=== PATIENT | female | born 1960 | race Caucasian/White ===

== ENCOUNTER 2018-12-10 19:32 | Emergency (ER) | payer OTHER ==
[~2018-12-10] VITALS: Ht 157.5 cm; Wt 70.3 kg
[~2018-12-10 19:32] MED LIST: ATENOLOL25 MG PO; ESCITALOPRAM OX20 MG PO; LORATADINE10 MG PO; OMEPRAZOLE20 MG PO; PROAIR HFA8.5 GM INH; PROMETHAZINE HC25 M1 PO; SPIRIVA18 MCG INH
--- OUTSIDE RECORDS SUMMARY | 2018-12-10 19:34 | XMS ---
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 E.D. VISIT COUNT (12 MO.) [address] Lat[place] Moya [address] [place], [place] [address]Cecy TOTAL 6 NOTE: Visits indicate total known visits. ED/UCC VISIT TRACKING (12 MO.) 12/10/2018 19:33 BALA Williamson TYPE: Emergency COMPLAINT: - SOB 11/08/2018 14:17 [facility] Nita DAVIS TYPE: Emergency DIAGNOSES: - Difficulty Breathing - Chronic obstructive pulmonary disease with (acute) exacerbation 11/05/2018 18:14 BALA Williamson TYPE: Emergency COMPLAINT: - MEDICAL SCREEN DIAGNOSES: - Chronic obstructive pulmonary disease, unspecified - Allergy status to analgesic agent status - Allergy status to narcotic agent status - Major depressive disorder, single episode, unspecified - Other assisted (current) drug therapy - Allergy status to other drugs, medicaments and biological substances status - Allergy status to penicillin - Allergy status to sulfonamides status - Essential (primary) hypertension - Allergy status to other antibiotic agents status - Nicotine dependence, unspecified, uncomplicated 09/20/2018 16:10 [facility] [place] TYPE: Emergency DIAGNOSES: - Shortness of breath - Acute bronchospasm - Hypoxemia - Dependence on supplemental oxygen - Shortness of Breath - Chronic obstructive pulmonary disease with (acute) exacerbation 04/17/2018 11:37 [facility] Eirca DAVIS TYPE: Emergency DIAGNOSES: - Chronic obstructive pulmonary disease with (acute) exacerbation - sob - Tobacco use - Hypoxemia - Shortness of Breath [facility] DIAGNOSES: - Shortness of Breath - Chronic obstructive pulmonary disease with (acute) exacerbation - sob INPATIENT VISIT TRACKING (12 MO.) 09/20/2018 [facility]10 [facility] DIAGNOSES: - Shortness of breath - Dependence on supplemental oxygen - Chronic obstructive pulmonary disease with (acute) exacerbation - Acute bronchospasm - Tobacco use - Acute and chronic respiratory failure with hypoxia - Hypoxemia 04/17/2018 11:37 [facility] DIAGNOSES: - Chronic obstructive pulmonary disease with (acute) exacerbation - Acute and chronic respiratory failure with hypoxia - Chronic obstructive pulmonary disease, unspecified - Cerebrovascular disease, unspecified - Tobacco use - Anxiety disorder, unspecified - Hypoxemia [email or web address]
[2018-12-10] MEDS ORDERED: SYMBICORT 16010.2 GM INH (20:37)
[2018-12-10] MEDS ORDERED: ASPIR-LOW81 MG PO (20:38)
[2018-12-10] MEDS ORDERED: PREDNISONE20 MG PO (22:29)
[2018-12-10] MEDS ORDERED: ZITHROMAX500 MG PO (22:29)
== END 2018-12-10 23:00 | disposition home or self-care (01) ==
LOC: ED 19:32
DX: J44.0 Chronic obstructive pulmonary disease with (acute) lower respiratory infection (principal); J20.9 Acute bronchitis, unspecified; I10 Essential (primary) hypertension; F17.200 Nicotine dependence, unspecified, uncomplicated; Z88.0 Allergy status to penicillin; Z88.5 Allergy status to narcotic agent; Z88.2 Allergy status to sulfonamides; Z88.1 Allergy status to other antibiotic agents; Z88.6 Allergy status to analgesic agent; Z88.8 Allergy status to other drugs, medicaments and biological substances; Z79.82 Long term (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 of aspirin; Z79.899 Other long term (current) drug therapy
CPT/HCPCS: 71045; 80053; 83605; 85025; 94640; 96361; 96374; 99283-25; J2405; J7030; J7512

== ENCOUNTER 2018-12-12 23:34 | Emergency (ER) | payer OTHER ==
[~2018-12-12] VITALS: Ht 157.5 cm; Wt 65.8 kg
[~2018-12-12 23:34] MED LIST changes: +ASPIR-LOW81 MG PO; +PREDNISONE20 MG PO; +SYMBICORT 16010.2 GM INH; +ZITHROMAX500 MG PO
--- OUTSIDE RECORDS SUMMARY | 2018-12-12 23:38 | XMS ---
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 E.D. VISIT COUNT (12 MO.) 4 [place] [facility] [place] TOTAL 7 NOTE: Visits indicate total known visits. ED/UCC VISIT TRACKING (12 MO.) 12/12/2018 23:34 BALA Williamson TYPE: Emergency COMPLAINT: - SOB 12/10/2018 19:33 [place]A [place] TYPE: Emergency COMPLAINT: - SOB 11/08/2018 14:[address] Lat[place] DAVIS TYPE: Emergency DIAGNOSES: - Difficulty Breathing - Chronic obstructive pulmonary disease with (acute) exacerbation 11/05/2018 18:14 BALA Williamson TYPE: Emergency COMPLAINT: - MEDICAL SCREEN DIAGNOSES: - Chronic obstructive pulmonary disease, unspecified - Allergy status to analgesic agent status - Allergy status to narcotic agent status - Major depressive disorder, single episode, unspecified - Other mcfp (current) drug therapy - Allergy status to other drugs, medicaments and biological substances status - Allergy status to penicillin - Allergy status to sulfonamides status - Essential (primary) hypertension - Allergy status to other antibiotic agents status - Nicotine dependence, unspecified, uncomplicated 09/20/2018 16:10 [facility] [place] TYPE: Emergency DIAGNOSES: - Shortness of breath - Acute bronchospasm - Hypoxemia - Dependence on supplemental oxygen - Shortness of Breath - Chronic obstructive pulmonary disease with (acute) exacerbation 04/17/2018 [facility] DIAGNOSES: - Chronic obstructive pulmonary disease with (acute) exacerbation - sob - Tobacco use - Hypoxemia - Shortness of Breath 01/20/2018 16:19 [facility] TYPE: Emergency DIAGNOSES: - Shortness of Breath - Chronic obstructive pulmonary disease with (acute) exacerbation - sob INPATIENT VISIT TRACKING (12 MO.) 09/20/2018 16:10 [facility] DIAGNOSES: - Shortness of breath - Dependence on supplemental oxygen - Chronic obstructive pulmonary disease with (acute) exacerbation - Acute bronchospasm - Tobacco use - Acute and chronic respiratory failure with hypoxia - Hypoxemia 04/17/2018 11:37 [facility] [place] TYPE: Medical Surgical DIAGNOSES: - Chronic obstructive pulmonary disease with (acute) exacerbation - Acute and chronic respiratory failure with hypoxia - Chronic obstructive pulmonary disease, unspecified - Cerebrovascular disease, unspecified - Tobacco use - Anxiety disorder, unspecified - Hypoxemia [email or web address]
[2018-12-12] MEDS ORDERED: ZITHROMAX250 MG PO (23:41)
[2018-12-13] MEDS ORDERED: HYDROXYZINE HCL25 MG PO (01:27)
[2018-12-13] MEDS ORDERED: DIVALPROEX SOD500 M1 PO (11:18)
--- NOTE | 2018-12-13 14:49 | EKG ---
[facility] [address] [place], [place] [address] Signed Normal sinus rhythm Possible Left atrial enlargement Borderline ECG No previous ECGs available Confirmed by FRANSISCA PENA DO ([id number]) on 12/13/2018 2:49:19 PM Electronically Signed By: FRANSISCA PENA DO 12/13/18 1449 PATIENT NAME: TONYALEX L Electrocardiogram DATE OF : 60 PHYSICIAN: FRANSISCA PENA DO REPORT #: [id number] REPORT IS CONFIDENTIAL AND NOT TO BE RELEASED WITHOUT AUTHORIZATION
== END 2018-12-13 00:40 | disposition left against medical advice (07) ==
LOC: ED 23:34
DX: J44.1 Chronic obstructive pulmonary disease with (acute) exacerbation (principal); I10 Essential (primary) hypertension; F17.200 Nicotine dependence, unspecified, uncomplicated; F32.9 Major depressive disorder, single episode, unspecified; Z88.0 Allergy status to penicillin; Z88.1 Allergy status to other antibiotic agents; Z88.2 Allergy status to sulfonamides; Z88.5 Allergy status to narcotic agent; Z88.6 Allergy status to analgesic agent; Z88.8 Allergy status to other drugs, medicaments and biological substances; Z79.52 Long term (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 of systemic steroids; Z79.82 Long term (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 of aspirin; Z79.899 Other long term (current) drug therapy
CPT/HCPCS: 71046; 80053; 83735; 83880; 84484; 85025; 93005; 93010; 94640; 94644; 96374; 99285-25; J2930

== ENCOUNTER 2018-12-13 01:00 | Inpatient (IN) | payer OTHER ==
[~2018-12-13] VITALS: Ht 157.5 cm; Wt 68.8 kg
[~2018-12-13 01:00] MED LIST changes: +ZITHROMAX250 MG PO
--- OUTSIDE RECORDS SUMMARY | 2018-12-13 01:02 | XMS ---
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 E.D. VISIT COUNT (12 MO.) 4 [facility] 4 BALA Urias TOTAL 8 NOTE: Visits indicate total known visits. ED/UCC VISIT TRACKING (12 MO.) 12/13/2018 01:01 [place] TYPE: Emergency COMPLAINT: - SOB 12/12/2018 23:34 [place] TYPE: Emergency COMPLAINT: - SOB 12/10/2018 19:33 [place] TYPE: Emergency COMPLAINT: - SOB 11/08/2018 14:17 [facility] Erica DAVIS TYPE: Emergency DIAGNOSES: - Difficulty Breathing - Chronic obstructive pulmonary disease with (acute) exacerbation 11/05/2018 18:14 BALA Williamson TYPE: Emergency COMPLAINT: - MEDICAL SCREEN DIAGNOSES: - Chronic obstructive pulmonary disease, unspecified - Allergy status to analgesic agent status - Allergy status to narcotic agent status - Major depressive disorder, single episode, unspecified - Other long term care phlebotomist (current) drug therapy - Allergy status to other drugs, medicaments and biological substances status - Allergy status to penicillin - Allergy status to sulfonamides status - Essential (primary) hypertension - Allergy status to other antibiotic agents status - Nicotine dependence, unspecified, uncomplicated 09/20/2018 16:10 [facility] Erica DAVIS TYPE: Emergency DIAGNOSES: - Shortness of breath - Acute bronchospasm - Hypoxemia - Dependence on supplemental oxygen - Shortness of Breath - Chronic obstructive pulmonary disease with (acute) exacerbation 04/17/2018 11:37 [facility] [place] TYPE: Emergency DIAGNOSES: - Chronic obstructive pulmonary disease with (acute) exacerbation - sob - Tobacco use - Hypoxemia - Shortness of Breath 01/20/2018 16:19 [facility] [place] [facility]: [facility] DIAGNOSES: - Shortness of Breath - Chronic obstructive pulmonary disease with (acute) exacerbation - sob INPATIENT VISIT TRACKING (12 MO.) 09/20/2018 16:10 [facility] [place] TYPE: Medical Surgical DIAGNOSES: - Shortness of breath - Dependence on supplemental oxygen - Chronic obstructive pulmonary disease with (acute) exacerbation - Acute bronchospasm - Tobacco use - Acute and chronic respiratory failure with hypoxia - Hypoxemia 04/17/2018 11:37 [facility] Nita DAVIS TYPE: Medical Surgical DIAGNOSES: - Chronic obstructive pulmonary disease with (acute) exacerbation - Acute and chronic respiratory failure with hypoxia - Chronic obstructive pulmonary disease, unspecified - Cerebrovascular disease, unspecified - Tobacco use - Anxiety disorder, unspecified - Hypoxemia [email or web address]
[2018-12-13] MEDS ORDERED: HYDROXYZINE HCL25 MG PO (01:27)
--- NOTE | 2018-12-13 02:20 | NUR ---
PT ARRIVED TO THE FLOOR, MARCY MEYER RN IN ROOM, PT'S VSS, PT ON 2LNC, O2 SAT 90%, PT C/O SOB, PT PLACED IN HIGH FOWLERS, LS COARSE, EXP. WHEEZING NOTED, PT'S IV SL, FLUSHES WELL, PT AOX4, APPROPRIATE, BT ACTIVE, PULSES FELT, PT DENIES NUMBNESS OR TINGLING, ATTENDS IN PLACE PT DESCRIBES HAVING AN "OVERACTIVE BLADDER", PT DENIES ANY PAIN, PT ORIENTED TO ROOM, BELONGINGS AT BEDSIDE, CALL LIGHT WITHIN REACH. MARCY MEYER RN REMAINS IN ROOM.
--- NOTE | 2018-12-13 03:49 | NUR ---
PT RESTING IN BED, EYES CLOSED, BREATHS EVEN, UNLABORED, ON 2LNC, CPOX, O2 SAT 92%, CALL LIGHT WITHIN REACH. NO NEEDS AT THIS TIME.
--- NOTE | 2018-12-13 05:07 | NUR ---
CALL LIGHT ANSWERED, PT C/O "BRONCHOSPASM" THIS RN AND RT TO THE ROOM, PRN NEB TX GIVEN BY RT, PT RESTING IN BED, HIGH FOWLERS, ON 2LNC, O2 SAT 95%, PT PERSISTANTLY COUGHING, HR 100, PT DESCRIBED RELIEF POST NEB TX, REMAINS ON 2LNC, ASSESSMENT COMPLETE, LS COARSE/WHEEZES THROUGHOUT. NO FURTHER NEEDS AT THIS TIME, CALL LIGHT WITHIN REACH. FALL PRECAUTIONS IN PLACE. CPOX ON.
--- NOTE | 2018-12-13 05:09 | NUR ---
PT AOX4, APPROPRIATE, ON 2LNC, ON CPOX, PT RECEIVED 1 PRN NEB RELATED TO "BRONCHOSPASM", PERSISTANT COUGHING, PT OTHERWISE RESTED WELL IN BED, NO C/O PAIN, VSS, USES CALL LIGHT APPROPRIATELY.
--- NOTE | 2018-12-13 06:00 | NUR ---
RECEIVED VERBAL ORDER FOR ELMER PEARL WELL CARIDAD FOR THE PT'S PERSISITANT COUGH, SEE EMAR.
--- NOTE | 2018-12-13 07:33 | NUR ---
PATIENT RESTING IN BED. PATIENT'S BREAKFAST ORDERED. CALL LIGHT WITHIN REACH. NO OTHER NEEDS AT THIS TIME
--- NOTE | 2018-12-13 07:35 | NUR ---
REPORT RECEIVED FROM CONTRACT DESIGN AGENT RN. PT IN BED, AAO, CPOX IN PLACE, O2 SATURATION 94% ON 2L NC, HEART RATE 94. RESPIRATIONS 20. PT IS RELAXED. CALL LIGHT IN REACH. DENIES FURTHER NEEDS.
--- NOTE | 2018-12-13 09:11 | NUR ---
IN TO COMPLETE PTS INITIAL CASE MANAGEMENT ASSESSMENT. PT REPORTS THAT SHE IS HOMELESS AND HAS NO WAY TO GET HER HOME O2. PT ALSO REPORTS THAT SHE HAS BEEN LIVING IN EITHER HER CAR OR ON A PORCH SINCE SHE HAS NO WHERE TO GO. SPOKE WITH CHARGE NURSE ABOUT SITUATION AND PLACED CALL TO OCCUPATIONAL THERAPY SPECIALIST, MILTNO, FOR ASSISSTANCE.
--- NOTE | 2018-12-13 09:20 | NUR ---
PATIENT RESTING IN BED. VITAL SIGNS AND I&O DONE. CALL LIGHT WITHIN REACH. NO OTHER NEEDS AT THIS TIME
--- NOTE | 2018-12-13 10:34 | NUR ---
SPOKE WITH SOLAR/RENEWABLE ENERGY SALES, OTHER NUCLEAR WEAPONS MECHANICAL SPECIALIST, AND PASTORAL CARE TO FIND SOMEWHERE FOR PT TO GO UPON DISCHARGE. PT REPORTS THAT SHE HAS HER DAUGHTER, SON IN LAW, AND 2 YEAR OLD GRANDSON ALSO LIVING HOMELESS WITH HER. PT IS AWARE THAT WE MUST CONTACT CPS ABOUT THE GRANDSON. PT STATES THAT HER SON IN LAW IS WORKING WITH THEIR NUCLEAR WEAPONS MECHANICAL SPECIALIST, [employer], AND [employer] TO HAVE A PLACE FOR THEM TO STAY. OTHER PHONE NUMBERS GIVEN FOR HELP FINDING SOMEWHERE TO STAY. PASTOR APPLE TO SPEAK WITH [facility] OUTREACH ABOUT A POSSIBLY HOTEL FOR PT TO STAY IN UPON DISCHARGE.
--- NOTE | 2018-12-13 10:44 | NUR ---
[employer] CONTACTED FOR MANDATORY CHILD WELFARE REPORT.
--- NOTE | 2018-12-13 11:00 | NUR ---
OFFICER SUGEY RETURNED CALL ABOUT MANDATORY REPORTING. STATES SHE WILL FOLLOW WITH [employer] AND MAKE SURE THAT THEY HAVE A CASE OPEN.
[2018-12-13] MEDS ORDERED: DIVALPROEX SOD500 M1 PO (11:18)
--- NOTE | 2018-12-13 12:40 | NUR ---
STEPHANIE IBRD CONSULTED WITH ME ON POSSIBLE HOUSING OPTIONS FOR PT UPON DC. PT IS APPARENTLY HOMELESS AND HAS A TODDLER WITH HER. DISCUSSED POSSIBLILTIES, WILL CONTINUE TO FOLLOW NEEDED
--- NOTE | 2018-12-13 13:06 | NUR ---
PATIENT SITTING UP IN BED. FAMILY IN ROOM. VITAL SIGNS AND I&O DONE. PATIENT DID NOT VOID DURING THIS PERIOD. RN NOTIFIED. CALL LIGHT WITHIN REACH. NO OTHER NEEDS AT THIS TIME
--- NOTE | 2018-12-13 13:20 | NUR ---
MED REC COMPLETE
--- NOTE | 2018-12-13 15:32 | NUR ---
Pt denies any pain or new problems and is reading a book at this time.
--- NOTE | 2018-12-13 17:37 | NUR ---
PATIENT SITTING UP IN BED TAKING HER DINNER. VITAL SIGNS AND I&O DONE. CALL LIGHT WITHIN REACH. NO OTHER NEEDS AT THIS TIME
--- NOTE | 2018-12-13 17:57 | NUR ---
ROUNDED ON PT., DENESI PAIN OR SOB. CALL LIGHT IN REACH,
--- NOTE | 2018-12-13 18:44 | NUR ---
PT UP TO BATHROOM. BACK TO BED WITH LABORED PURSED LIP BREATHING. RT CALLED FOR BREATHING TREATMENT.
--- NOTE | 2018-12-13 20:02 | NUR ---
REPORT RECEIVED, PT RESTING IN BED, PRN ROBITUSSIN GIVEN DUE TO PERSISTANT COUGH, PT REMAINS ON 2LNC, NO C/O SOB/CP, O2 SAT 94%, ON CPOX, NO NEEDS AT THIS TIME, CALL LIGHT WITHIN REACH. FALL PRECAUTIONS IN PLACE.
--- NOTE | 2018-12-13 21:30 | NUR ---
EVENING MED ADMINISTERED, NICOTINE PATCH REMOVED, PT RESTING IN BED, NOTED TO BE INCONTINENT OF VOID, BEDDING CHANGED, IV FLUIDS INFUSING PER EMAR WNL. PT ON 2LNC, NO C/O SOB/CP, ON CPOX, O2 SAT 94%, PT DENIES ANY PAIN AT THIS TIME, VSS. CALL LIGHT WITHIN REACH.
--- NOTE | 2018-12-13 23:44 | NUR ---
PT RESTING IN BED, ON 2LNC, O2 SAT 95%, CPOX ON, NO NEEDS AT THIS TIME, IV FLUIDS INFUSING PER EMAR WNL. CALL LIGHT WITHIN REACH.
--- NOTE | 2018-12-14 01:00 | NUR ---
PT RESTING IN BED, NO NEEDS AT THIS TIME, CALL LIGHT WITHIN REACH. FALL PRECAUTIONS IN PLACE.
--- NOTE | 2018-12-14 02:00 | NUR ---
PT ASSISTED TO BATHROOM TO VOID, PT BACK TO BED, NO NEEDS AT THIS TIME, ON 2LNC, NO C/O SOB/CP, CALL LIGHT WITHIN REACH. IV FLUIDS INFUSING PER EMAR WNL.
--- NOTE | 2018-12-14 04:57 | NUR ---
PT AOX4, APPROPRIATE, PT EMOTIONAL THIS SHIFT, REASSURANCE PROVIDED, PT ON 2LNC, CPOX ON, NO C/O SOB/CP, O2 SAT 92-94%, CPOX ON, 1 PERSON SBA, IV FLUIDS INFUSING PER EMAR WNL, NO C/O PAIN, PT DID RECEIVE PRN COUGH MEDICINE X1 RELATED TO COUGHING EPISODE, NO FURTHER C/O COUGH, SCHEDULED/PRN NEBS. USES CALL LIGHT APPROPRIATELY, PT IS OCCASIONALLY INCONTINENT OF URINE, ATTENDS IN PLACE.
--- NOTE | 2018-12-14 08:06 | NUR ---
PATIENT SLEEPING, PUT PATIENTS BELONGINGS IN A BAG, WILL RECHECK PATIENT WHEN BREAKFAST ARRIVES
--- NOTE | 2018-12-14 09:30 | NUR ---
Pt had increased sob with coughing during her breakfast this am. Pt reports she takes albuteral at home for these symptoms. Rt just seen pt and admin x2 breathing tx's. Elevated hob and put oxygen to 4l per nc. RT in emergency at this time. Pt's oxygen is 89%, rr22/min. Pt encouraged to not talk and catch her breath. Oxygen steadily increased up to 95% with increase in 02 to 4l per nc. Pt's breathing returned back to baseline shorlty after this c/o sob. RR 20/min, 02 sat 95-96% on 4l. Personal supplies and call light within reach. No needs at this time. Pt verbalized that she is doing "better" and reports she will call staff if need of help. Call light within reach.
--- NOTE | 2018-12-14 14:10 | NUR ---
CALL LIGHT ANSWERED. PATIENT IN THE BATHROOM. SHE JUST TOOK A SHOWER AND IS STANDING AND SHAKING WITH HER HANDS ON THE RAIL. THIS COMPENSATION/BENEFITS SPECIALIST ASKS THE PATIENT TO SIT AND A WARM BLANKET IS PROVIDED. A GATE BELT IS PLACED ON THE PATIENT TO WALK TO THE BED. THE OXYGEN SATURATION IS 86. THE RN IS AWARE OF THIS AND PUTS THE PATIENT IN ONE LITER OF OXYGEN. CALL LIGHT WITHIN REACH. NO OTHER NEEDS AT THIS TIME
--- NOTE | 2018-12-14 17:26 | NUR ---
A&OX4. RA, 2L OXYGEN WITH SLEEP PRN. CPOX. SOB WITH BREAKFAST THIS SHIFT. DENIES PAIN. SCHEDULED AND PRN NEB TX'S. DEPENDS FOR URINE URGENCY. CALLS APPROP. INDEPENDENT IN ROOM. EMOTIONAL AT TIMES D/T LIVING SITUATION.
--- NOTE | 2018-12-14 18:36 | NUR ---
PT SITTING UP IN BED AT THIS TIME, RESP EVEN AND NON LABORED. PT DENIES SOB, CPOX 95% ON RA. PT DENIES PAIN AT THIS TIME. PERSONAL SUPPLIES AND CALL LIGHT WITHIN REACH.
--- NOTE | 2018-12-14 19:20 | NUR ---
REPORT RECEIVED, PT UP TO BATHROOM, PT HAD A BM AND VOIDED, PT BACK TO BED, ON RA, O2 SAT 92%, ON CPOX, NO FURTHER NEEDS AT THIS TIME, CALL LIGHT WITHIN REACH. FALL PRECAUTIONS IN PLACE
--- NOTE | 2018-12-14 21:30 | NUR ---
EVENING MEDS ADMINISTERED, ASSESSMENT COMPLETE, PT ON RA AT REST, ON 2LNC WHILE SLEEPING OR PRN WHILE COUGHING, PT RESTING IN BED COMFORTABLY, NO C/O SOB/CP, IV FLUIDS INFUSING PER EMAR WNL. NO NEEDS AT THIS TIME. CALL LIGHT WITHIN REACH. FALL PRECAUTIONS IN PLACE.
--- NOTE | 2018-12-14 21:55 | NUR ---
PT C/O COUGH, PRN COUGH MEDICINE GIVEN PER EMAR, PT PLACED ON OXYGEN DUE TO DESATURATION WITH COUGHING, PT ON 4LNC, O2 SAT 90%, THIS RN REMAINS IN ROOM, FAMILY AT BEDSIDE.
--- NOTE | 2018-12-15 00:13 | NUR ---
PT RESTING IN BED WATCHING TV, ON 2LNC, O2 SAT 95%, NO C/O SOB/CP, NO NEEDS AT THIS TIME, IV FLUIDS INFUSING PER EMAR WNL. CALL LIGHT WITHIN REACH.
--- NOTE | 2018-12-15 02:00 | NUR ---
PT RESTING IN BED WATCHING TV, NO NEEDS AT THIS TIME, ON RA, O2 SAT 94%, CALL LIGHT WITHIN REACH. FALL PRECAUTIONS IN PLACE, IV FLUIDS INFUSING PER EMAR WNL.
--- NOTE | 2018-12-15 04:10 | NUR ---
PT RESTING IN BED, EYES CLOSED, BREATHS EVEN, UNLABORED, NO NEEDS AT THIS TIME, CALL LIGHT WITHIN REACH. ON 2LNC, O2 SAT 93%.
--- NOTE | 2018-12-15 05:40 | NUR ---
PT AOX4, APPROPRIATE, PT TOLERATING RA WHILE AWAKE AND RESTING, ON 2LNC WHILE SLEEPING, PT DID HAVE EPISODE OF COUGHING RELATED TO BRONCHOSPASM PER PT, PT GIVEN PRN COUGH MEDICINE PER EMAR X1. SCHEDULED NEBS GIVEN PER EMAR. PT 1 PERSON SBA. NO C/O PAIN, VSS, USES CALL LIGHT APPROPRIATELY.
--- NOTE | 2018-12-15 09:03 | NUR ---
IN TO SPEAK WITH PT AND FOLLOW UP ABOUT HOUSING APPLICATIONS. PT REPORTS THAT APPLICATIONS WERE PLACED AND THEY ARE WAITING ON FOLLOW UP.
--- NOTE | 2018-12-15 14:44 | NUR ---
PT RESTING IN BED, EYES CLOSED, RESP EVEN AND NON LABORED. PT HAS NO NOTABLE DISTRESS. CPOX INTACT, SAT LEVEL IS 90-91% ON RA. PERSONAL SUPPLIES AND CALL LIGHT WITHIN REACH.
--- NOTE | 2018-12-15 17:30 | NUR ---
PT SL PER DOC ORDER. PT ASKED "WHY", SHE STATES "I'M CONFUSED, WHY WOULD HE STOP MY FLUIDS?". DISCUSSED WITH PT THAT SHE HAS HAD GOOD PO INTAKE AND Q/S URINE OUTPUT, THEREFORE SHE PRESENTS WITH GOOD PROGRESS WITH HER HYDRATION STATUS. PT RECEPTIVE TO EDUCATION AND CHANGE IN PLAN OF CARE. PT'S DINNER BROUGHT TO HER ROOM AT THIS TIME. PT DENIES FURTHER NEEDS. CALL LIGHT [place].
--- NOTE | 2018-12-15 17:38 | NUR ---
PT A&OX3. PT ON RA WHILE AWAKE, 2L WITH SLEEP. PT TOLERATING DIET. INDEPENDENT IN ROOM. PO ANTOINE SHEETS. SL IV. CALLS APPROP.
--- NOTE | 2018-12-15 19:29 | NUR ---
REPORT RECEIVED, PT ON RA, O2 91%, ON CPOX, NO C/O SOB/CP, PT DENIES ANY NEEDS AT THIS TIME, CALL LIGHT WITHIN REACH. FALL PRECAUTIONS IN PLACE.
--- NOTE | 2018-12-15 21:50 | NUR ---
EVENING MEDS ADMINISTERED, PT RESTING IN BED, AOX4, APPROPRIATE, ON RA, O2 SAT 93%, NO C/O SOB/CP, WHEN ASKED HOW THE PT'S BREATHING FEELS THE PT STATES "IT COMES AND GOES, BUT ITS OK RIGHT NOW", PT ENCOURAGED TO CDB, USE IS/CPT, PT STATES THAT SHE FEELS "CONGESTED" IN HER CHEST, EDUCATION PROVIDED REGARDING DISEASE PROCESS, PT DENIES ANY PAIN, DENIES NAUSEA, ASSESSMENT COMPLETE. PT'S LS REMAIN WHEEZY, EXP. WHEEZES NOTED THROUGHOUT. PT DENIES ANY NEEDS AT THIS TIME, CALL LIGHT WITHIN REACH. IV SL, FLUSHES WELL. FALL PRECAUTIONS IN PLACE.
--- NOTE | 2018-12-16 00:15 | NUR ---
PT RESTING IN BED, NO NEEDS AT THIS TIME, ON 2LNC, O2 SAT 95%, CALL LIGHT WITHIN REACH. FALL PRECAUTIONS IN PLACE.
--- NOTE | 2018-12-16 01:51 | NUR ---
PT C/O COUGHING FIT, RT TO ROOM, PT REQUESTING PRN COUGH MEDICINE, MED GIVEN PER EMAR, PT RESTING IN BED AT THIS TIME, ON 2LNC, O2 SAT 94%, HR 83, NO FURTHER NEEDS AT THIS TIME, CALL LIGHT WITHIN REACH.
--- NOTE | 2018-12-16 07:26 | NUR ---
PT APPEARS TO BE SLEEPING, EYES CLOSED, RESP EVEN AND NON LABORED. PERSONAL SUPPLIES AND CALL LIGHT WITHIN REACH.
--- NOTE | 2018-12-16 07:50 | NUR ---
patient resting in bed with eyes closed. call button in reach.
--- NOTE | 2018-12-16 12:20 | NUR ---
PT WALKED IN HALLWAY WITH THIS RN. PT TOLERATED WALK WELL, SHE DID HOWEVER STOP FOR A FEW SECONDS TO REGAIN HER BREATH MID WALK, BUT THE IMMEDIATELY RETURNED TO WALKING. PT WALKED 158FT TOTAL. ONCE BACK IN ROOM OXYGEN SAT LEVEL 91% AT THIS TIME.
--- NOTE | 2018-12-16 14:28 | NUR ---
PATIENT REFUSED LUNCH.
--- NOTE | 2018-12-16 16:21 | NUR ---
ROBITUSSIN 10ML (200MG) ADMIN FOUR COUGH.
--- NOTE | 2018-12-16 17:40 | NUR ---
PT A&OX3. RA WHILE AWAKE, 2L OXYGEN WITH SLEEP. TOLERATING DIET. INDEPENDENT IN ROOM. WALK TID. SHOWERED. SL IV. CALLS APPROP. KATARINA TX.
--- NOTE | 2018-12-16 19:00 | NUR ---
BEDSIDE REPORT RECEIVED FROM OSBALDO CIFUENTES. PT RESTING IN BED WITH EYES CLOSED. BREATHING EQUAL AND UNLABORED. CPOX IN PLACE. SPO2 92-93% ON RA. CALL LIGHT IN REACH.
--- NOTE | 2018-12-16 19:00 | NUR ---
CHARGE NURSE REPORT RECEIVED FROM [facility]. NO NEEDS AT THIS TIME.
--- NOTE | 2018-12-16 22:00 | NUR ---
PT ASSESSMENT COMPLETE. EXPIRATORY WHEEZES HEARD. 2L OXYGEN BY NC AT BEDSIDE FOR SLEEP. SPO2 WNL ON RA AT THIS TIME, CPOX ON. IV FLUSHED WNL, SL. CALL LIGHT IN REACH. ICE WATER PROVIDED.
--- NOTE | 2018-12-17 | NUR ---
CALL LIGHT ANSWERED, SANDWICH BOX PROVIDED REQUESTED.
--- NOTE | 2018-12-17 01:15 | NUR ---
CHECKED ON PT. LYING IN BED AWAKE WATCHING TV, ON RA. SPO2 95%, CPOX IN PLACE. NO REQUESTS AT THIS TIME. CALL LIGHT IN REACH.
--- NOTE | 2018-12-17 03:09 | NUR ---
PT APPEARS TO BE SLEEPING, LYING ON SIDE. AUDIBLE WHEEZE. SPO2 94% ON 2L OXYGEN BY NC. RR 20. CPOX IN PLACE. CALL LIGHT NEXT TO PT.
--- NOTE | 2018-12-17 05:18 | NUR ---
PT RESTING IN BED THROUGHOUT SHIFT. SPO2 WNL ON RA WHILE AWAKE, AND 2L OXYGEN BY NC. EXPIRATORY WHEEZES HEARD IN LUNG LOBES. INDEPENDENT TO RESTROOM FOR VOIDS. IV SL. USING CALL LIGHT APPROPRIATELY.
--- NOTE | 2018-12-17 05:55 | NUR ---
IN PT ROOM FOR VS, VSS. ASSESSMENT COMPLETE. LUNG SOUNDS CLEAR, DIMINISHED POSTERIORALLY. SLIGHT UPPER EXP WHEEZES HEARD BILATERALLY ANTERIORALLY. PT DENIES SOB. SPO2 WNL ON RA. 2L OXYGEN BY NC IN REACH FOR SLEEP. CALL LIGHT IN REACH. NO REQUESTS AT THIS TIME.
--- NOTE | 2018-12-17 07:34 | NUR ---
PT APPEARS TO BE SLEEPING, EYES CLOSED, RESP EVEN AND NON LABORED. PT HAS NO RESP DISTRESS NOTED. CPOX INTACT, 02 SAT LEVEL 96% AT THIS TIME. PERSONAL SUPPLIES AND CALL LIGHT WITHIN REACH. NO NEEDS AT THIS TIME.
--- NOTE | 2018-12-17 08:12 | NUR ---
CHW CALLED DICK AT [facility]. DISCUSSED PATIENT. DICK STATED SHE WILL COME BY TODAY TO VISIT PATIENT IN THE HOSPITAL. DICK IS LOOKING INTO IF PATIENT WOULD BE ELIGIBLE FOR HOTEL ROOM PAID FOR BY [facility], WOULD ALSO LIKE TO SEE IF PATIENT WOULD BE ELIGIBLE FOR HOUSING AT [facility]. DICK STATED SHE WILL LOOK INTO THIS WITH PATIENT.
--- NOTE | 2018-12-17 09:50 | NUR ---
PATIENT VISITING WITH DICK FROM [facility] WHO IS WORKING ON RESOURCES FOR HER AFTER DISCHARGE. SHE WAS REFERRED BY OUR DEPARTMENT TO HER INSURANCE CASE MANAGEMENT TEAM WHO CAN MORE EASILY HELP HER WITH HOUSING AND FOLLOW UP NEEDS.
--- NOTE | 2018-12-17 10:16 | NUR ---
NURSES SAID THIS PT MIGHT NEED A VISIT, SO I STOPPED IN. SHE IS IN GOOD SPIRIT OUTWARDLY BUT I THINK INSIDE SHE IS LONELY. I PRAYED WITH HER AND TALKED A FEW MINUTES ABOUT HER RELATIONSHIP WITH GOD. SHE IS BAPTISM, BUT SAID SHE HAS NOT BEEN TO JEHOVAH'S WITNESS IN A WHILE- ANGRY AT GOD FOR LOSS OF HER FAMILY. SHE SAID SHE ARGUES AT GOD A LOT BUT KNOWS THAT HE LOVES HER AND SHE READS HER BIBLE A LOT. I PRAY FOR HEALING OF THE HURT THAT SHE CARRIES IN HER HEART.
[2018-12-17] MEDS ORDERED: DOXYCYCLINE HY100 MG PO (10:46)
[2018-12-17] MEDS ORDERED: IPRAT-ALBUT 0.5-3 ML INH (10:50)
[2018-12-17] MEDS ORDERED: NICOTINE1 EAC1 TD (10:50)
[2018-12-17] MEDS ORDERED: SPACE CHAMBER1 EACH INH (10:51)
[2018-12-17] MEDS ORDERED: PREDNISONE20 MG PO (10:53)
--- NOTE | 2018-12-17 11:16 | NUR ---
SPOKE WITH PHILIP AT [facility]. DISCUSSED THAT PATIENT HAS QUALIFIED FOR OXYGEN CONTINUOUS. SHE STATES PATIENT HAS PORTABLE OXYGEN THROUGH THEM, SHE DOES NOT HAVE A CONCENTRATOR ANYMORE AFTER LOOSING HER HOME AND NOT HAVING A RESIDENCE TO HAVE IT REPLACED. SHE STATES THAT THEY CAN DELIVER CONCENTRATOR TO HOTEL IF SHE IS STAYING AT ONE. SHE STATES PATIENT RECEIVED A NEBULIZER IN 2016 THROUGH INSURANCE AND IT ONLY WILL PROVIDE ONE EVERY 5 YEARS. SHE STATES PATIENT DID HAVE A NEW RX FOR NEBULIZER IN AUGUST THROUGH [facility] BUT IS UNSURE IF PATIENT EVER GOT IT FILLED, IT WAS NOT COVERED AND SHE DID NOT GET ONE THROUGH THEM. STAFF UPDATED, STAFF NURSE GOING TO CHECK WITH PT REGARDING IF SHE HAS NEBULIZER. FLOOR CUSTOM TAILOR TO FAX RT QUALIFIER AND ORDER AND CLINICALS TO [facility] FOR NEW OXYGEN ORDER.
--- NOTE | 2018-12-17 11:20 | NUR ---
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 PER LUIGI AT [facility] THEY ARE WAITING TO HEAR BACK IN REGARDS TO FUNDING FOR HOT STAY. SUAD CONTACT NUMBER IS [phone]. CHW PROVIDED CONTACT NUMBER TO CALL BACK AND GET ABILIO ROBLERO CASE MANAGER AND OR DEANNE SAMUEL.
--- NOTE | 2018-12-17 12:19 | NUR ---
SUAD CHAHAL DEPUTY BAILIFF CALLED. QUESTIONS ANSWERED ON PATIENTS STAY. SHE IS WORKING ON POSSIBLE MOTEL COVERAGE FOR A FEW DAYS. SHE WILL CALL BACK WITH DECISION.
--- NOTE | 2018-12-17 12:30 | NUR ---
SPOKE WITH PATIENT IN ROOM. PRESENT ALSO ARE HER DAUGHTER, SON-IN-LAW AND 2 YEAR OLD GRANDSON. DISCUSSED THAT WE ARE WORKING WITH [employer] CASE MANAGEMENT TO SEE ABOUT HELPING HER WITH A SAFE PLACE TO STAY BECAUSE OF HER CHRONIC HEALTH NEEDS. DISCUSSED HER NEEDING OXYGEN AND BEING HOMELESS MAKES IT HARD TO USE. SHE AGREES WITH THIS. ASKED WHAT HER PLAN IS IF A HOTEL OR PLACE CAN'T BE FOUND AT DISCHARGE, SHE STATES "PROBABLY STAY IN THE CAR AGAIN". SON-IN-LAW STATED SHE CAN STAY WITH A FRIEND. PATIENT STATES "NO I CAN'T BECAUSE ITS A SCHOOL NIGHT". THEN DAUGHTER STATES, NO THEY JUST DON'T WANT THE BABY THERE ON A SCHOOL NIGHT, YOU CAN STAY AND WE WILL STAY IN THE CAR. ASKED IF PATIENT HAS A NEBULIZER TO USE, SHE STATES SHE USED TO USE HER MOTHERS, BUT SHE PASSED AND NOW SHE DOESN'T HAVE ONE. DISCUSSED THE DME SAYS SHE GOT A NEW ONE IN 2016, SHE STATES SHE DID NOT, SHE SENT IT BACK BECAUSE SHE WAS USING HER MOTHERS. DISCUSSED WE CAN TALK WITH HER INSURANCE ABOUT GETTING ANOTHER. SHE AGREES TO TRY THIS. DISCUSSED GENTLY WITH PATIENT THAT SHE MAY NEED TO FIND HOUSING WITHOUT HER KIDS, HER HEALTH IS AT RISK AND IT WOULD BE POSSIBLE TO FIND A PLACE FOR HER THROUGH HER INSURANCE. SHE STATES "WELL THAT MIGHT BE OK". SON-IN-LAW STATES THEY ARE WORKING WITH [facility] FOR HOUSING, TOO. WILL CONTINUE TO FOLLOW.
--- NOTE | 2018-12-17 13:30 | NUR ---
ASKED ARY SUPERVISOR BAKING ON MEDICAL FLOOR TO SENT RT QUALIFIER, ORDER FOR OXYGEN, FACE SHEET, H&P, DISCHARGE SUMMARY (IF AVAILABLE) TO [facility]. SHE WAS ABLE TO DO THIS, AND HAS A FAX CONFIRMATION.
--- NOTE | 2018-12-17 13:58 | NUR ---
CHW SPOKE WITH SUAD CHAHAL SAP FUNCTIONAL ANALYST. THEY WOULD LIKE TO SEE IF PATIENT CAN POSSIBLY STAY ANOTHER NIGHT IN THE HOSPITAL. CHW STATED THAT QUESTION WOULD HAVE TO BE DIRECTED TO ARCHITECTURAL SALES CONSULTANT [place]. PATIENT HAS ALREADY BEEN DISCHARGED FROM THE HOSPITAL. SUAD STATED THEY ARE STILL WAITING ON HOTEL FLEX FUNDS. SAVANNAH CHUNG [facility] IS WORKING ON RESPITE HOUSING FOR PATIENT DUE TO MENTAL HEALTH DIAGNOSIS HX. W PROVIDED [facility] ARCHITECTURAL SALES CONSULTANT WITH UPDATED INFORMATION. PHONE CALL REQUESTED FROM OSBALDO ROSE SAP FUNCTIONAL ANALYST TO SUAD [place]JICA.
--- NOTE | 2018-12-17 14:15 | NUR ---
SPOKE WITH SUAD QUINONEZ RN CM AT [facility] [phone]. SHE STATES SHE HAS BEEN WORKING WITH PATIENT FOR SEVERAL MONTHS IN REGARDS TO HER CHRONIC HEALTH AND HOUSING SITUATION. SHE STATES THEY ARE REQUESTING TO REMAIN IN THE HOSPITAL IN ORDER FOR A MENTAL HEALTH ASSESSMENT TO BE DONE. DISCUSSED I ALSO FEEL HER DISCHARGE TODAY LEAVES HER WITHOUT A SAFE PLAN ON WHERE SHE WILL BE TONIGHT AND ALSO FOR OXYGEN USE. DISCUSSED WITH HER PATIENT ALSO NEEDS A NEBULIZER AND SHE SHE SAYS TO HAVE DME SUBMIT AGAIN, AND SHE WILL LOOK AT GETTING THIS AUTHORIZED. SHE STATES SHE HAS BEEN IN TOUCH WITH DAVID HAMMONDS AT [facility] AND THEY ARE LOOKING AT PUTTING PATIENT IN RESPITE HOUSING BUT NEED THE MENTAL HEALTH ASSESSMENT DONE.
--- NOTE | 2018-12-17 14:40 | NUR ---
SPOKE WITH DR PARNELL AND DISCUSSED REQUEST OF INSURANCE COMPANY TO KEEP PATIENT TONIGHT IN ORDER TO GET MENTAL HEALTH ASSESSMENT THROUGH [facility]. HE IS IN AGREEMENT AND WILL HOLD DISCHARGE. DISCUSSED WITH STAFF ON MEDICAL FLOOR. SPOKE WITH PATIENT IN ROOM, FAMILY STILL PRESENT. DISCUSSED WITH HER CONVERSATION WITH HER DIRECTOR OF LABORATORY OPERATIONS FROM [facility]. SHE AGREES TO STAY FOR THE MENTAL HEALTH ASSESSMENT. SHE STATES SHE THINKS SHE WOULD AGREE TO HELP GETTING IN SOMEWHERE ON HER OWN, AND THAT HER KIDS ARE GOING TO KEEP LOOKING FOR A PLACE FOR THEM. QUESTIONS ANSWERED.
--- NOTE | 2018-12-17 14:55 | NUR ---
RECEIVED MESSAGE FROM [employer] FOR CALL BACK. RETURNED CALL TO [phone] AND SPOKE WITH HER. SHE STATES SHE IS HAVING A CRISIS COUNSELOR COME TO ASSESS PATIENT THIS AFTERNOON. MY PHONE NUMBER GIVEN FOR THE COUNSELOR TO CALL ME NEEDED. EXPLAINED WE ARE KEEPING THE PATIENT OVER AGAIN TONIGHT. QUESTIONS ANSWERED.
--- NOTE | 2018-12-17 17:44 | NUR ---
PT A&OX3. ON RA, 2L WITH SLEEP. CPOX. PO PREDINSONE. NEBS. INDEPENDENT. CALLS APPROP.
--- NOTE | 2018-12-17 18:11 | NUR ---
[facility] HERE TO CONSULT WITH PT. PER [facility] PT IS "MEDICAL" AND HAS NO "SUICIDAL INTENT", HOWEVER HAS "SUICIDAL IDEATIONS". PLEASE SEE FORMS FILLED OUT BY [facility] WHICH CAN BE FOUND IN THE PT'S CHART.
--- NOTE | 2018-12-17 19:20 | NUR ---
BEDSIDE REPORT RECEIVED FROM OSBALDO CIFUENTES. PT LYING IN BED, SPO2 90% ON RA. NO REQUESTS AT THIS TIME. CALL LIGHT IN REACH.
--- NOTE | 2018-12-17 20:20 | NUR ---
PT ASSESSMENT COMPLETE. EXP. WHEEZES THROUGHOUT ALL LOBES, LUNG SOUNDS DIMINISHED IN BASES. RT MAGGIE IN ROOM FOR BREATHING TREATMENT. VSS. SPO2 91% ON RA. 2L OXYGEN BY NC IN REACH FOR SLEEP. USING ACAPELLA. CALL LIGHT IN REACH. ICE WATER PROVIDED.
--- NOTE | 2018-12-17 23:53 | NUR ---
CHECKED ON PT. RESTING IN BED WATCHING I PAD AWAKE. SPO2 WNL ON RA. CALL LIGHT IN REACH.
--- NOTE | 2018-12-18 02:30 | NUR ---
PT RESTING IN BED WITH EYES CLOSED, BREATHING EQUAL AND UNLABORED. LIGHTS OFF IN ROOM. SPO2 93% ON 2L OXYGEN BY NC. HR 74. CPOX ON.
--- NOTE | 2018-12-18 06:41 | NUR ---
PT SLEEPING, AWAKENS TO VOICE, DROWSY. SPO2 97% ON 2L OXYGEN BY NC. EXP. WHEEZES BILATERALLY UPPER LOBES, DIMINISHED LOWER LOBES. ASSESSMENT COMPLETE. VSS. CALL LIGHT IN REACH. NO REQUESTS AT THIS TIME.
--- NOTE | 2018-12-18 06:42 | NUR ---
PT SLEPT WELL THIS SHIFT. INDEPENDENT IN ROOM. VOIDING QS. 2L OXYGEN BY NC WITH SLEEP. RA WHILE AWAKE. CPOX. SATURATIONS WNL. EXP. WHEEZES THROUGHOUT LUNG LOBES. SCHEDULED NEB TREATMENTS. PLAN TO D/C TODAY.
--- NOTE | 2018-12-18 07:33 | NUR ---
RECIEVED REPORT FROM Z[facility]. PT RESTING IN BED WITH EYES CLOSED. RESPIRATIONS EVEN AND UNLABORED.
--- NOTE | 2018-12-18 08:36 | NUR ---
PT SITTING UP IN BED STATING SHE JUST FEELS "YUCKY" PT STATES THAT SHE DOESNT LIKE BEING SICK AND DOESNT UNDERSTAND. EDUCATED PT ON HER DIANOSIS WITH AN UNDERSTANDING. RESPIRATORY THERAPY IN ROOM GIVING NEBULIZER. PT ON 2L WHILE SLEEPING, AND ONCE AWAKE PT 94% ON RA. MORNING MEDICATIONS GIVEN AND ASSESSMENT COMPLETE. PT STATES THAT SHE IS DECLINING THE FLU SHOT. PT STATES THAT EVERYTIME SHE GETS THE FLU SHOT PT GETS SICK AND DOES NOT WANT. EDUCATED ON THE FLU SHOT BUT STILL DECLINES AT THIS TIME. PT BREAKFAST AT BEDSIDE. PT HAS NO FURTHER NEEDS AT THIS TIME.
--- NOTE | 2018-12-18 08:36 | NUR ---
PATIENT SITTING UP IN BED. RN IN ROOM. SETS UP BATHROOM FOR SHOWER. CALL LIGHT WITHIN REACH. NO OTHER NEEDS AT THIS TIME
--- NOTE | 2018-12-18 09:13 | NUR ---
PATIENT RESTING IN BED. VITAL SIGNS AND I&O DONE. CALL LIGHT WITHIN REACH. NO OTHER NEEDS AT THIS TIME
--- NOTE | 2018-12-18 10:28 | NUR ---
PT RESTING IN BED WITH EYES CLOSED. EASILY AROUSABLE TO NOISE. RESPIRATIONS EVEN AND UNLABORED. RESPIRATIONS 16. PT ON 2L AT 93% HOB ELEVATED 20'. PT HAS NO NEEDS/CONCERNS AT THIS TIME.
--- NOTE | 2018-12-18 10:49 | NUR ---
PT RESTING IN BED ON LEFT SIDE WATCHING TV ON HER IPAD. PT IN GOOD SPIRITS AND HAS NO NEEDS/CONCERNS AT THIS TIME. PT HAS NOT ORDERED LUNCH YET BUT STATES THAT SHE WILL IN A WHILE WHEN SHE GETS HUNGRY. CALL LIGHT WITHIN REACH.
--- NOTE | 2018-12-18 10:57 | NUR ---
SPOKE WITH SUAD QUINONEZ CM AT [facility] [phone] IN REGARDS TO CHARTING DONE BY MENTAL HEALTH LAST NIGHT. PATIENT IS NOT DEEMED A RISK TO SELF OR OTHERS, NO PLACEMENT THROUGH THEM IS INITIATED. SHE STATES SHE WILL CALL THE [facility] TEAM AND TALK WITH THEM FOR UPDATE ON WHAT THEY HAVE FOUND FOR POSSIBLE PLACEMENT. WE AGREED I WILL ASK PATIENT IF SHE IS INTERESTED IN DHS SCREEN FOR BENEFITS FOR RESIDENTIAL HOUSING THROUGH MEDICAID.
--- NOTE | 2018-12-18 11:06 | NUR ---
PATIENT RESTING IN BED. PATIENT'S LUNCH ORDERED. CALL LIGHT WITHIN REACH. NO OTHER NEEDS AT THIS TIME
--- NOTE | 2018-12-18 11:35 | NUR ---
SPOKE WITH PATIENT AT LENGTH IN ROOM. DISCUSSED [facility] ASSESSMENT. PATIENT STATES SHE FEELS DEPRESSED BUT SHE DOES NOT FEEL HARM TOWARDS SELF. SHE STATES "ITS JUST SCARY TO HAVE NO WHERE TO GO, I'VE NEVER BEEN HOMELESS. THIS LAST YEAR HAS BEEN SO HARD". WE DISCUSSED PAPERWORK SHE HAS THAT DICK SAMUEL FROM [facility] GAVE HER FOR HOUSING. SHE STATES SHE HAS FILLED OUT MOST OF WHAT SHE CAN, OR KNOWS ON IT. WE DISCUSSED WHETHER SHE WANTS TO FIND HOUSING FOR JUST HERSELF OR IF SHE ONLY WANTS TO LIVE WITH HER FAMILY. SHE STATES, THAT SHE IS OPEN TO FINDING A PLACE FOR JUST HER, SHE WAS JUST TRYING TO HELP "THE KIDS TOO". WE DISCUSSED THAT SHE HAS A CHRONIC CONDITION, COPD AND IS OXYGEN DEPENDENT. SHE UNDERSTANDS HER DISEASE AND IS ABLE TO REPEAT BACK THIS CONDITION. SHE STATES SHE STILL SMOKES ABOUT 4-5 CIGARETTES A DAY. WE DISCUSSED OXYGEN AND SMOKING, THAT HER BREATHING WOULD BE BETTER NOT SMOKING AT ALL, AND THAT THERE IS HELP WITH PATCHES ETC. WE ALSO DISCUSSED HER FOLLOW UP APPOINTMENT TOMORROW. SHE STATES SHE WON'T BE ABLE TO GET TO [facility] AND CANCELLED THE APPOINTMENT. SHE IS ASKING IF SHE CAN GET A FOLLOW UP IN OUR CLINIC INSTEAD. THIS WAS PASSED ON TO NURSING STAFF TO SEE ABOUT A DIFFERENT APPOINTMENT. WE DISCUSSED POSSIBLE MEDICAID FOR HELP IN FINDING A PLACE TO LIVE. SHE IS OPEN TO AN ASSESSMENT. SHE STATES SHE HAS NO WHERE TO STAY, HER DAUGHTER HAS A FRIEND WHO HAS KIDS AND SOMETIMES ON THE WEEKEND, THEY LET THEM STAY THERE A NIGHT. SHE ASKS IF I HAVE ANY RESOURCES FOR HER KIDS. I DID TELL HER I CAN CALL THE [facility] TEAM WHO MIGHT BE ABLE TO HELP HER GRANDSON. SHE ASKS THEY BE CONTACTED. SHE PROVIDED HER DAUGHTERS NAME AND NUMBER. DISCUSSED THAT I AM STILL WORKING WITH DANIELLE AND [facility] ON HER BEHALF. PATIENT WAS VERY THANKFUL AND TEARFUL. ALL QUESTIONS ANSWERED AT THIS TIME.
--- NOTE | 2018-12-18 11:56 | NUR ---
PT SITTING UP IN BED EATING A SANDWITCH AND DRINKING JUICE. PT STATES THAT SHE HAS NO NEEDS/CONCERNS AT THIS TIME. CALL LIGHT WITHIN REACH.
--- NOTE | 2018-12-18 12:10 | NUR ---
SPOKE WITH LIZ SANTOS. DISCUSSED POSSIBLE HELP FOR PATIENT FOR HOUSING. SHE FEELS PATIENT WOULD BE ELIGIBLE FOR [facility]. DISCUSSED PATIENT WOULD NEED DHS ASSESSMENT FOR FINANCIAL ASSISTANCE. SHE WILL CONTACT THEM AND SEE ABOUT OPENINGS.
--- NOTE | 2018-12-18 13:06 | NUR ---
PATIENT RESTING IN BED. VITAL SIGNS AND I&O DONE. CALL LIGHT WITHIN REACH. NO OTHER NEEDS AT THIS TIME
--- NOTE | 2018-12-18 13:15 | NUR ---
SPOKE WITH CHAU FROM [facility]. SHE STATES TO ASK FOR ASSESSMENT FROM [facility]. CALLED [facility] DAYWORKER. SPOKE WITH COLLEEN. SHE CAN DO ASSESSMENT ON SATURDAY 12/23. SHE ASKS WE CALL HER WITH WHERE PATIENT WILL BE AND SHE WILL SET UP TIME. HER NUMBER IS [phone].
--- NOTE | 2018-12-18 13:23 | NUR ---
SPOKE WITH SUAD AT [facility] [phone]. SHE STATES THEY ARE TRYING TO GET A HOTEL FOR A WEEK FOR PATIENT. WE DISCUSSED THAT [facility] IS WORKING WITH [facility] FOR POSSIBLE STAY THERE FOR PATIENT. SHE STATES SHE WILL RETURN MY CALL WHEN SHE GETS THE HOTEL SECURED.
--- NOTE | 2018-12-18 13:56 | NUR ---
CALLED [facility]. SPOKE WITH PHILIP. THEY WILL BE ABLE TO SET UP CONCENTRATOR FOR OXYGEN WHEN SHE IS DISCHARGED TO [facility]. SHE ASKS THAT STAFF CALL AND LET THEM KNOW AT DISCHARGE.
--- NOTE | 2018-12-18 14:31 | NUR ---
RECEIVED A CALL FROM SUAD AT [facility] STATING [facility] IS WORKING ON MOTEL ROOM FOR PATIENT A SOMEONE SHOULD CALL SOON REGARDING THIS.
--- NOTE | 2018-12-18 14:45 | NUR ---
WAS GOING TO UPDATE PATIENT IN ROOM, SHE WAS ASLEEP. WILL COME BACK LATER.
--- NOTE | 2018-12-18 14:59 | NUR ---
RECEIVED A PHONE CALL FROM DAVID AT [facility]. SHE STATES [facility] HAS SECURED A HOTEL FOR TONIGHT AT [facility] AND SHE IS GOING TO COME UP TO TAKE PATIENT THERE AND MAKE SURE SHE IS SET UP FOR THE NIGHT. WE DISCUSSED I WILL CALL [facility] FOR OXYGEN CONCENTRATOR DELIVERY AFTER PATIENT IS DISCHARGED. DAVID PHONE [phone]. UPDATED STAFF. PATIENT WAS BEING WOKE UP BY DITCH INSPECTOR. SPOKE WITH HER IN ROOM. EXPLAINED THAT [facility] WAS COMING TO TAKE HER TO HOTEL. DISCUSSED WITH HER THAT [facility] WILL DELIVER OXYGEN. DISCUSSED WITH HER THAT LESLIE COLLEEN WILL BE IN CONTACT WITH HER AND SHE WILL DO AN ASSESSMENT ON SUNDAY FOR POSSIBLE HELP WITH FACILITY STAY. DISCUSSED THAT [facility] CASE MANAGEMENT IS WORKING ON GETTING HER A CELL PHONE. HER ONLY CONCERN IS IF HER KIDS CAN COME STAY WITH HER AT THE HOTEL. DISCUSSED SHE WILL NEED TO TALK WITH [facility] REGARDING THIS. EXPLAINED THAT DICK FROM [employer] WILL BE CHECKING IN WITH HER TOMORROW AND TO HAVE THE HOUSING PAPERS READY FOR HER. CONTACT INFORMATION GIVEN FOR MY OFFICE. SHE HAD DICK FROM [employer] CARD. QUESTIONS ANSWERED.
--- NOTE | 2018-12-18 16:36 | NUR ---
UPDATED DICK SAMUEL FOR [facility] ON PATIENTS DISCHARGE WITH [facility] ASSESSMENT WITH COLLEEN ON SUNDAY. SHE WILL VISIT PATIENT TOMORROW AND MAKE SURE TO LET COLLEEN AT [facility] KNOW WHERE PATIENT WILL BE ON SUNDAY.
--- NOTE | 2018-12-19 13:20 | NUR ---
SPOKE WITH DAVID FROM [facility] [phone]. SHE STATES THAT [facility] HAS PAID AND WILL PAY FOR PATIENT TO STAY IN ROOM 116 AT THE [facility]. DISCUSSED WITH HER THAT COLLEEN FROM [facility] NEEDS TO BE KEPT UP ON PATIENTS WHEREABOUTS SHE IS PLANNING TO DO AN ASSESSMENT ON SUNDAY. SHE STATES THAT NEO DAMON IS PATIENTS COUNSELOR FROM [facility] AND SHE CAN WORK WITH COLLEEN FROM [facility]. SHE ASKS FOR ME TO CALL [facility] AND LET THEM KNOW THIS. CALLED [facility] AND LEFT MESSAGE FOR COLLEEN ON WHERE PATIENT WAS AND COUNSELOR AT [facility].
== END 2018-12-18 15:30 | disposition home or self-care (01) | DRG 189 ==
LOC: ED 01:00 → MS 01:02
PROVIDERS: ADMIT Student in an Organized Health Care Education/Training Program
DX: J96.21 Acute and chronic respiratory failure with hypoxia (principal); J44.1 Chronic obstructive pulmonary disease with (acute) exacerbation; I67.89 Other cerebrovascular disease; J06.9 Acute upper respiratory infection, unspecified; I10 Essential (primary) hypertension; K21.9 Gastro-esophageal reflux disease without esophagitis; F39 Unspecified mood [affective] disorder; F17.210 Nicotine dependence, cigarettes, uncomplicated; Z66 Do not resuscitate; Z59.0 Homelessness; Z79.82 Long term (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 of aspirin; Z79.51 Long term (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 of inhaled steroids; Z79.52 Long term (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 of systemic steroids; Z79.899 Other long term (current) drug therapy; Z88.1 Allergy status to other antibiotic agents; Z88.5 Allergy status to narcotic agent; Z88.0 Allergy status to penicillin; Z88.2 Allergy status to sulfonamides; Z88.8 Allergy status to other drugs, medicaments and biological substances
CPT/HCPCS: 36415; 80048; 83735; 85025; 87070; 87205; 94640; 94667; 94668; 94761; 94762; 96374; 99285; 99406; G0378; J1650; J2930; J7120; J7512

== ENCOUNTER 2019-02-03 09:43 | Emergency (ER) | payer OTHER ==
[~2019-02-03] VITALS: Ht 157.5 cm; Wt 68.5 kg
--- OUTSIDE RECORDS SUMMARY | ~2019-02-03 | XMS | Encounter Summary ---
Demographics + + + | Address | [address] | | | [place] [address] | + + + | Home Phone | | + + + | Preferred Language | Unknown | + + + | Marital Status | | + + + | Jew Affiliation | 1041 | + + + | Race | Unknown | + + + | Ethnic Group | Unknown | + + + Author + + + | Author | [facility] | | | and [place] | + + + | Organization | [facility] | | | and [place] | + + + | Address | Unknown | + + + | Phone | Unavailable | + + + Support + + +---------+ + | Name | Relationship | Address | Phone | + + +---------+ + | Jose Simpson | ECON | Unknown | | + + +---------+ + Care Team Providers + +------+ + | Care Ocular Pathologist Name | Role | Phone | + +------+ + | Scot Anton MD | PCP | | + +------+ + Reason for Visit + + + | Reason | Comments | + + + | Referral | | + + + Encounter Details +--------+ + + + + | Date | Type | Department | Care Team | Description | +--------+ + + + + | 04/22/ | Telephone | [facility] | Mei Savage, | Referral | | 2019 | | [place] [address] | RN | | | | | [place] | | | | | | [address] | | | | | | [phone] | | | +--------+ + + + + Social History + + + +--------+------+ | Tobacco Use | Types | Packs/Day | Years | Date | | | | | Used | | + + + +--------+------+ | Current Every Day | Cigarettes | 0.75 | 30 | | | Smoker | | | | | + + + +--------+------+ + +---+---+---+ | Smokeless Tobacco: | | | | | Never Used | | | | + +---+---+---+ + + | Comments: Previously tried Chantix, patch | + + + + +---------+ + | Alcohol Use | Drinks/Week | oz/Week | Comments | + + +---------+ + | Yes | | | 1 drink a few times | | | | | per year | + + +---------+ + + + + | Sex Assigned at | Date Recorded | | | | + + + | Not on file | | + + + + + + + | Job Start Date | Occupation | Industry | + + + + | Not on file | Not on file | Not on file | + + + + + + + + | Travel History | Travel Start | Travel End | + + + + + + | No recent travel history available. 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
--- OUTSIDE RECORDS SUMMARY | ~2019-02-03 | XMS | Encounter Summary ---
Demographics + + + | Address | [address] | | | [place] [address] | + + + | Home Phone | | + + + | Preferred Language | Unknown | + + + | Marital Status | | + + + | Yazidi Affiliation | 1041 | + + + | Race | Unknown | + + + | Ethnic Group | Unknown | + + + Author + + + | Author | [facility] | | | and [place] | + + + | Organization | [facility] | | | and [...] Team Providers + +------+ + | Care Family Dentist Name | Role | Phone | + +------+ + | Pepper Kamara | PCP | | + +------+ + Encounter Details +--------+ + + + + | Date | Type | Department | Care Team | Description | +--------+ + + + + | 11/23/ | [facility] | [facility] | Pepper Kamara | | | 2011 | Encounter | [facility] | [address] | | | | | [address] | [place] | | | | | [place] | [address] | | | | | [address] | | | | | | [phone] | | | +--------+ + + + + Social History + +-------+ +--------+------+ | Tobacco Use | Types | Packs/Day | Years | Date | | | | | Used | | + +-------+ +--------+------+ | Never Assessed | | | | | + +-------+ +--------+------+ + + + | Sex Assigned at [...] + + documented as of this encounter Medications at Time of Discharge + + + +---------+ + + | Medication | Sig | Dispensed | Refills | Start | End Date | | | | | | Date | | + + + +---------+ + + | atenolol | Take 25 mg by mouth | | 0 | 03/22/20 | | | (TENORMIN) 25 mg | Daily. | | | 10 | 3 | | tablet | | | | | | + + + +---------+ + + | cholecalciferol | Take 1,000 Units by | | 0 | 08/13/19 | | | (VITAMIN D-3) 1000 | mouth Daily. | | | 10 | 2 | | UNITS TABS | | | | | | + + + +---------+ + + | lamoTRIgine | 25 mg by mouth every | | 0 | 11/24/19 | | | (LAMICTAL) 25 MG | am week1, 25 mg am | | | 12 | 2 | | tablet | and HS week 2, 50 mg | | | | | | | am, 25 mg pm week | | | | | | | 3, 50 mg two times | | | | | | | daily week 4. | | | | | + + + +---------+ + + | loratadine | Take 10 mg by mouth | | 0 | 12/29/19 | | | (CLARITIN) 10 mg | Daily. | | | 11 | 2 | | tablet | | | | | | + + + +---------+ + + | nicotine (NICODERM | use as directed | | 0 | 11/26/19 | | | CQ) 14 mg/24 hr | daily. | | | 11 | 2 | + + + +---------+ + + | nicotine (NICODERM | use as directed | | 0 | 11/26/19 | | | CQ) 21 mg/24 hr | daily | | | 11 | 2 | + + + +---------+ + + | omeprazole | Take 20 mg by mouth | | 0 | 03/22/20 | | | (PRILOSEC) 20 mg | every morning. | | | 10 | 2 | | capsule | | | | | | + + + +---------+ + + documented as of this encounter Plan of Treatment Not on filedocumented as of this encounter Procedures + +--------+ + + + | Procedure Name | Priori | Date/Time | Associated Diagnosis | Comments | | | ty | | | | + +--------+ + + + | UA, MICROSCOPIC, | Routin | 11/24/2011 | | Results for this | | REFLEX | e | 10:03 AM | | procedure are in the | | | | PDT | | results section. | + +--------+ + + + | URINALYSIS, REFLEX | Routin | 11/24/2011 | | Results for this | | MICROSCOPIC AND/OR | e | 10:03 AM | | procedure are in the | | CULTURE | | PDT | | results section. | + +--------+ + + + | LIPID PROFILE | Routin | 11/24/2011 | | Results for this | | | e | 10:02 AM | | procedure are in the | | | | PDT | | results section. | + +--------+ + + + | COMPREHENSIVE | Routin | 11/24/2011 | | Results for this | | METABOLIC PANEL | e | 10:02 AM | | procedure are in the | | | | PDT | | results section. | + +--------+ + + + documented in this encounter Results UAMaria Guadalupe Reflex (11/24/2011 10:03 AM PDT) + + + + + + | Component | Value | Ref Range | Performed | Pathologist | | | | | At | Signature | + + + + + + | WBC UA | 0-2 | 0 - 1 /hpf | [facility] | | | | [facility] | | | | | | [facility] | | | | | | [facility] - | | | | | | LABORATORY | | + + + + + + | RBC UA | 5-10 | 0 - 4 /hpf | [facility] | | | | | | [facility] | | | | | | [facility] | | | | | | CENTER - | | | | | | LABORATORY | | + + + + + + | SQUAMOUS | FEW | FEW /hps | [facility] | | | EPITHELIAL | | | [facility] | | | UA | | | MEDICAL | | | | | | CENTER - | | | | | | LABORATORY | | + + + + + + | BACTERIA UA | FEW | NONE /hpf | [facility] | | | | | | [facility] | | | | | | MEDICAL | | | | | | CENTER - | | | | | | LABORATORY | | + + + + + + | AMORPHOUS | SLIGHT | /hpf | [facility] | | | CRYSTALS | | | [facility] | | | | | | MEDICAL | | | | | | CENTER - | | | | | | LABORATORY | | + + + + + + | MUCUS UA | SLIGHT | /hpf | [facility] | | | | | | [facility] | | | | | | MEDICAL | | | | | | CENTER - | | | | | | LABORATORY | | + + + + + + | BUDDING | RARE | /hpf | [facility] | | | YEAST UA | | | [facility] | | | | | | MEDICAL | | | | | | CENTER - | | | | | | LABORATORY | | + + + + + + | Culture | YESComment: REFLEXED TO | | [facility] | | | Indicated | URINE CULTURE. | | [facility] | | | | | | MEDICAL | | | | | | CENTER - | | | | | | LABORATORY | | + + + + + + + + | Specimen | + + | | + + + + + + + | Performing | Address | City/State/Zipcode | Phone Number | | Organization | | | | + + + + + | [facility] | [address] | [place], [place] | [phone] | | [facility] | | [address] | | | - LABORATORY | | | | + + + + + | [facility] | [address] | [place], [place] | | | [facility] | | [address] | | | - LABORATORY | | | | + + + + + Urinalysis, Reflex Microscopic and/or Culture (11/24/2011 10:03 AM PDT) + + + + + + | Component | Value | Ref Range | Performed | Pathologist | | | | | At | Signature | + + + + + + | COLLECTION | CL.CATCH | | [facility] | | | [facility] | | | [facility] | | | | | | MEDICAL | | | | | | CENTER - | | | | | | LABORATORY | | + + + + + + | Color | YELLOW | | [facility] | | | | | | [facility] | | | | | | MEDICAL | | | | | | CENTER - | | | | | | LABORATORY | | + + + + + + | Clarity | CLEAR | | [facility] | | | | | | [facility] | | | | | | MEDICAL | | | | | | CENTER - | | | | | | LABORATORY | | + + + + + + | Glucose, | NEGATIVE | NEGATIVE mg/dL | [facility] | | | Urine | | | [facility] | | | | | | MEDICAL | | | | | | CENTER - | | | | | | LABORATORY | | + + + + + + | Bilirubin, | NEGATIVE | NEGATIVE | [facility] | | | Urine | | | [facility] | | | | | | MEDICAL | | | | | | CENTER - | | | | | | LABORATORY | | + + + + + + | Ketones, | NEGATIVE | NEGATIVE | [facility] | | | Urine | | | [facility] | | | | | | MEDICAL | | | | | | CENTER - | | | | | | LABORATORY | | + + + + + + | Specific | >=1.030 | 1.001 - 1.030 | [facility] | | | [place] | | | [facility] | | | | | | MEDICAL | | | | | | CENTER - | | | | | | LABORATORY | | + + + + + + | Blood, | TRACE-LYSED | NEGATIVE | [facility] | | | Urine | | | [facility] | | | | | | MEDICAL | | | | | | CENTER - | | | | | | LABORATORY | | + + + + + + | pH, Urine | 6.0 | 5.0 - 8.0 | [facility] | | | | | | [facility] | | | | | | MEDICAL | | | | | | CENTER - | | | | | | LABORATORY | | + + + + + + | Protein, | NEGATIVE | NEGATIVE mg/dL | [facility] | | | Urine | | | [facility] | | | | | | MEDICAL | | | | | | CENTER - | | | | | | LABORATORY | | + + + + + + | Urobilinoge | NORMAL | NORMAL EU/dL | [facility] | | | n, Urine | | | [facility] | | | | | | MEDICAL | | | | | | CENTER - | | | | | | LABORATORY | | + + + + + + | Nitrite, | NEGATIVE | NEGATIVE | [facility] | | | Urine | | | [facility] | | | | | | MEDICAL | | | | | | CENTER - | | | | | | LABORATORY | | + + + + + + | Leukocyte | NEGATIVE | NEGATIVE | [facility] | | | Esterase, | | | [facility] | | | Urine | | | MEDICAL | | | | | | CENTER - | | | | | | LABORATORY | | + + + + + + | MICROSCOPIC | YES | | [facility] | | | ? | | | [facility] | | | | | | MEDICAL | | | | | | CENTER - | | | | | | LABORATORY | | + + + + + + + + | Specimen | + + | | + + + + + + + | Performing | Address | City/State/Zipcode | Phone Number | | Organization | | | | + + + + + | [facility] | [address] | [place], [place] | [phone] | | [facility] | | [address] | | | - LABORATORY | | | | + + + + + | [facility] | [address] | [place], [place] | | | [facility] | | [address] | | | - LABORATORY | | | | + + + + + Lipid Profile (11/24/2011 10:02 AM PDT) + + + + + + | Component | Value | Ref Range | Performed | Pathologist | | | | | At | Signature | + + + + + + | Triglycerid | 239 (H) | 35 - 160 mg/dL | [facility] | | | [facility] | | [facility] | | | | | [facility] | | | | | | CENTER - | | | | | | LABORATORY | | + + + + + + | Cholesterol | 239 (H) | 150 - 200 mg/dL | [facility] | | | | | | [facility] | | | | | | MEDICAL | | | | | | CENTER - | | | | | | LABORATORY | | + + + + + + | HDL | 37 | 29 - 89 mg/dL | [facility] | | | | | | [facility] | | | | | | MEDICAL | | | | | | CENTER - | | | | | | LABORATORY | | + + + + + + | LDL, | 154 (H) | <130 mg/dL | [facility] | | | Calculated | | | [facility] | | | | | | MEDICAL | | | | | | CENTER - | | | | | | LABORATORY | | + + + + + + | Chol/HDL | 6.5Comment: | | [facility] | | | Ratio | | | [facility] | | | | | | MEDICAL | | | | ------- RISK CATEGORY: | | CENTER - | | | | CHOL/HDL * T.CHOL * LDL | | LABORATORY | | | | CHOL * HDL CHOL | | | | | | | | | | | | RATIO DESIRABLE: (M) | | | | | | 4.0-6.7 <200 | | | | | | <130 >50 | | | | | | (F) | | | | | | 3.7-4.2 BORDERLINE:(M) | | | | | | 6.7-7.4 200-240 | | | | | | 130-160 <45 | | | | | | (F) | | | | | | 4.2-5.5 HIGH RISK: (M) | | | | | | >7.4 >240 | | | | | | >160 <35 | | | | | | (F) | | | | | | >5.5 | | | | | | | | | | | | | | | | | | --------- | | | | + + + + + + + + | Specimen | + + | | + + + + + + + | Performing | Address | City/State/Zipcode | Phone Number | | Organization | | | | + + + + + | [facility] | [address] | [place] | [phone] | | [facility] | | [address] | | | - LABORATORY | | | | + + + + + | [facility] | [address] | [place] | | | [facility] | | [address] | | | - LABORATORY | | | | + + + + + Comprehensive Metabolic Panel (11/24/2011 10:02 AM PDT) + + + + + + | Component | Value | Ref Range | Performed | Pathologist | | | | | At | Signature | + + + + + + | Glucose | 98 | 70 - 109 mg/dL | [facility] | | | | | | [facility] | | | | | | MEDICAL | | | | | | CENTER - | | | | | | LABORATORY | | + + + + + + | Calcium | 9.2 | 8.3 - 10.5 | [facility] | | | | | mg/dL | [facility] | | | | | | MEDICAL | | | | | | CENTER - | | | | | | LABORATORY | | + + + + + + | Alkaline | 80 | 40 - 110 IU/L | [facility] | | | Phosphatase | | | [facility] | | | | | | MEDICAL | | | | | | CENTER - | | | | | | LABORATORY | | + + + + + + | AST | 14 | 10 - 42 IU/L | [facility] | | | | | | [facility] | | | | | | MEDICAL | | | | | | CENTER - | | | | | | LABORATORY | | + + + + + + | ALT | 16 | 6 - 45 IU/L | [facility] | | | | | | [facility] | | | | | | MEDICAL | | | | | | CENTER - | | | | | | LABORATORY | | + + + + + + | Bilirubin | 0.7 | 0.2 - 1.0 mg/dL | [facility] | | | Total | | | [facility] | | | | | | MEDICAL | | | | | | CENTER - | | | | | | LABORATORY | | + + + + + + | Total | 6.9 | 6.0 - 7.8 gm/dL | [facility] | | | Protein | | | [facility] | | | | | | MEDICAL | | | | | | CENTER - | | | | | | LABORATORY | | + + + + + + | Albumin | 3.8 | 3.2 - 5.0 gm/dL | [facility] | | | | | | [facility] | | | | | | MEDICAL | | | | | | CENTER - | | | | | | LABORATORY | | + + + + + + | BUN | 11 | 7 - 18 mg/dL | [facility] | | | | | | [facility] | | | | | | MEDICAL | | | | | | CENTER - | | | | | | LABORATORY | | + + + + + + | Creatinine | 1.14 | 0.60 - 1.30 | [facility] | | | | | mg/dL | [facility] | | | | | | MEDICAL | | | | | | CENTER - | | | | | | LABORATORY | | + + + + + + | Estimated | 50 (L)Comment: For | >60 mL/min/A | [facility] | | | GFR | -Americans, | | [facility] | | | | please multiply the | | MEDICAL | | | | result by 1.210 | | CENTER - | | | | This is an estimated | | LABORATORY | | | | GFR and is based on a | | | | | | standard adult | | | | | | body mass (A=1.73m2) and | | | | | | serum creatinine | | | | + + + + + + | BUN/Creatin | 9.6 (L) | 12 - 20 | [facility] | | | ine Ratio | | | [facility] | | | | | | MEDICAL | | | | | | CENTER - | | | | | | LABORATORY | | + + + + + + | Na | 139 | 136 - 149 mEq/L | [facility] | | | | | | [facility] | | | | | | MEDICAL | | | | | | CENTER - | | | | | | LABORATORY | | + + + + + + | K | 3.5 | 3.5 - 5.1 mEq/l | [facility] | | | | | | [facility] | | | | | | MEDICAL | | | | | | CENTER - | | | | | | LABORATORY | | + + + + + + | Cl | 106 | 98 - 109 mEq/l | [facility] | | | | | | [facility] | | | | | | MEDICAL | | | | | | CENTER - | | | | | | LABORATORY | | + + + + + + | CO2 | 26 | 24 - 31 mEq/L | [facility] | | | | | | [facility] | | | | | | MEDICAL | | | | | | CENTER - | | | | | | LABORATORY | | + + + + + + | Anion Gap | 10.5 | 6.0 - 17.0 | [facility] | | | | | | [facility] | | | | | | MEDICAL | | | | | | CENTER - | | | | | | LABORATORY | | + + + + + + + + | Specimen | + + | | + + + + + + + | Performing | Address | City/State/Zipcode | Phone Number | | Organization | | | | + + + + + | [facility] | [address] | [place] | [phone] | | [facility] | | [address] | | | - LABORATORY | | | | + + + + + | [facility] | [address] | [place] | | | [facility] | | [address] | | | - LABORATORY | | | | + + + + + documented in this encounter Visit Diagnoses Not on filedocumented in this encounter"
--- OUTSIDE RECORDS SUMMARY | ~2019-02-03 | XMS | Encounter Summary ---
Demographics + + + | Address | [address] | | | [place] [address] | + + + | Home Phone | | + + + | Preferred Language | Unknown | + + + | Marital Status | | + + + | Baptism Affiliation | 1041 | + + + | Race | Unknown | + + + | Ethnic Group | Unknown | + + + Author + + + | Author | [facility] | | | and [place] | + + + | Organization | [facility] | | | and [...] Team Providers + +------+ + | Care Napper Fixer Name | Role | Phone | + +------+ + PCP | Unavailable | + +------+ + Encounter Details +--------+ + + + + | Date | Type | Department | Care Team | Description | +--------+ + + + + | 08/07/ | Hospital | [facility] | | | | 2009 | Encounter | [facility] | | | | | | CENTER [address] | | | | | | [place] | | | | | | [address] | | | | | | [phone] | | | +--------+ + + + [...] filedocumented as of this encounter Visit Diagnoses Not on filedocumented in this encounter"
--- OUTSIDE RECORDS SUMMARY | ~2019-02-03 | XMS | Encounter Summary ---
Demographics + + + | Address | [address] | | | [place] [address] | + + + | Home Phone | | + + + | Preferred Language | Unknown | + + + | Marital Status | | + + + | Yazidi Affiliation | 1041 | + + + | Race | Unknown | + + + | Ethnic Group | Unknown | + + + Author + + + | Author | [facility] | | | and [place] | + + + | Organization | [facility] | | | [...] Team Providers + +------+ + | Care Elementary Vocal Music Teacher Name | Role | Phone | + +------+ + | Scot Anton MD | PCP | | + +------+ + Reason for Visit + + + | Reason | Comments | + + + | Medication Prior | Lexapro | | Authorization | | + + + | Medication Refill | | + + + Encounter Details +--------+--------+ + + + | Date | Type | Department | Care Team | Description | +--------+--------+ + + + | 02/06/ | Refill | [facility] | Scot Anton, | Medication Prior | | 2017 | | [facility] | [address] | Authorization | | | | [address] | [place] | (Lexapro); | | | | [place], [place] | [address] | Medication Refill | | | | [address] | | | | | | [phone] | | | +--------+--------+ + + + Social History + +-------+ +--------+------+ | Tobacco Use | Types | Packs/Day | Years | Date | | | | | Used | | + +-------+ +--------+------+ | Current Every Day | | 1 | 30 | | | Smoker | | | | | + +-------+ +--------+------+ + +---+---+---+ | Smokeless Tobacco: | | | | | Never Used | | | | + +---+---+---+ + + | Comments: Previously tried Chantix, patch | + + + + +---------+ + | Alcohol Use | Drinks/Week | oz/Week | Comments | + + +---------+ + | Yes | 1 Glasses of wine | 1.0 | occasionally, 1 | | | | | drink a few times | | | [...]
--- OUTSIDE RECORDS SUMMARY | ~2019-02-03 | XMS | Encounter Summary ---
Demographics + + + | Address | [address] | | | [place] [address] | + + + | Home Phone | | + + + | Preferred Language | Unknown | + + + | Marital Status | | + + + | Christianity Affiliation | 1041 | + + + | Race | Unknown | + + + | Ethnic Group | Unknown | + + + Author + + + | Author | [facility] | | | and [place] | + + + | Organization | [facility] | | | [...] Team Providers + +------+ + | Care Septic Tank Setter Name | Role | Phone | + +------+ + | Pepper Kamara | PCP | | + +------+ + Encounter Details +--------+ + + + + | Date | Type | Department | Care Team | Description | +--------+ + + + + | 01/07/ | Orders Only | [facility] | Pepper Kamara | Unspecified vitamin | | 2011 | | [facility] [place] | [address] | D deficiency | | | | [address] | [address] [place] | (Primary Dx) | | | | [place] | [address] | | | | | [address] | | | | | | [phone] | | | +--------+ + + + + Social History + +-------+ +--------+------+ | Tobacco Use | Types | Packs/Day | Years | Date | | | | | Used | | + +-------+ +--------+------+ | Current Every Day | | 1 | 30 | | | Smoker | | | | | + +-------+ +--------+------+ + + +---------+ + | Alcohol Use | Drinks/Week | oz/Week | Comments | + + +---------+ + | Yes | 1 Glasses of wine | 1.0 | | + + +---------+ + + + [...] as of this encounter Plan of Treatment + +------+--------+ + + | Name | Type | Priori | Associated Diagnoses | Order Schedule | | | | ty | | | + +------+--------+ + + | Vitamin D, 25 | Lab | Routin | Unspecified | 1 Occurrences | | Hydroxy | | e | vitamin D deficiency | starting 01/08/2012 | | | | | | until 01/07/2013 | + +------+--------+ + + documented as of this encounter Visit Diagnoses + + | Diagnosis | + + | Unspecified vitamin D deficiency - Primary | + + documented in this encounter"
--- OUTSIDE RECORDS SUMMARY | ~2019-02-03 | XMS | Encounter Summary ---
Demographics + + + | Address | [address] | | | [place] [address] | + + + | Home Phone | | + + + | Preferred Language | Unknown | + + + | Marital Status | | + + + | Roman Catholic Affiliation | 1041 | + + + | Race | Unknown | + + + | Ethnic Group | Unknown | + + + Author + + + | Author | [facility] | | | and [place] | + + + | Organization | [facility] | | | and [...] Team Providers + +------+ + | Care Inter Fold Roll Cutter Name | Role | Phone | + +------+ + | Scot Anton MD | PCP | | + +------+ + Reason for Visit + + + | Reason | Comments | + + + | Medication Follow-up | | + + + Encounter Details +--------+ + + + + | Date | Type | Department | Care Team | Description | +--------+ + + + + | 02/28/ | Telephone | [facility] | Scot Anton, | Medication Follow-up | | 2017 | | [facility] [place] | [address] | | | | | [address] | [place] | | | | | [place] | [address] | | | | | [address] | | | | | | [phone] | | | +--------+ + + + + Social History + + + +--------+------+ | Tobacco Use | Types | Packs/Day | Years | Date | | | | | Used | | + + + +--------+------+ | Current Every Day | Cigarettes | 0.5 | 30 | | | Smoker | [...] 1 Glasses of wine | 1.0 | 1 drink a few times | [...]
--- OUTSIDE RECORDS SUMMARY | ~2019-02-03 | XMS | Encounter Summary ---
Demographics + + + | Address | [address] | | | [place] [address] | + + + | Home Phone | | + + + | Preferred Language | Unknown | + + + | Marital Status | | + + + | Jewish Affiliation | 1041 | + + + | Race | Unknown | + + + | Ethnic Group | Unknown | + + + Author + + + | Author | [facility] | | | and [place] | + + + | Organization | [facility] | | | and [...] Team Providers + +------+ + | Care Emissions Testing And Repair Technician Name | Role | Phone | + +------+ + | Scot Anton MD | PCP | | + +------+ + Reason for Visit + + + | Reason | Comments | + + + | Medication Problem | | + + + Encounter Details +--------+--------+ + + + | Date | Type | Department | Care Team | Description | +--------+--------+ + + + | 04/29/ | Refill | [facility] | Scot Anton, | Medication Problem | | 2019 | | [facility] | [address] | | | | | [address] | [place] | | | | | [place] | [id number] | | | | | [id number] | | | | | | [phone] | | | +--------+--------+ + + + Social History + + + +--------+------+ | Tobacco Use | Types | Packs/Day | Years | Date | | | | | Used | | + + + +--------+------+ | Current Every Day | Cigarettes | 0.25 | 30 | | | Smoker | | | | | + + + +--------+------+ + +---+---+---+ | Smokeless Tobacco: | | | | | Never Used | | | | + +---+---+---+ + + | Comments: down to 3 cigs a day and working on getting it to 0 | + + + + +---------+ + [...] + | Diagnosis | + + | Hyperlipidemia, unspecified hyperlipidemia type | + + documented in this encounter"
--- OUTSIDE RECORDS SUMMARY | ~2019-02-03 | XMS | Encounter Summary ---
Demographics + + + | Address | [address] | | | [place] [address] | + + + | Home Phone | | + + + | Preferred Language | Unknown | + + + | Marital Status | | + + + | Jew Affiliation | 1041 | + + + | Race | Unknown | + + + | Ethnic Group | Unknown | + + + Author + + + | Author | [facility] | | | and [place] | + + + | Organization | [facility] | | | and [place] | + + + | Address | Unknown | + + + | Phone | Unavailable | + + + Support + + +---------+ + | Name | Relationship | Address | Phone | + + +---------+ + | Jose Simpson | ECON | Unknown | | + + +---------+ + Care Team Providers + +------+ + | Care Bowling Alley Attendant Name | Role | Phone | + +------+ + | Scot Anton MD | PCP | | + +------+ + Reason for Visit + + + | Reason | Comments | + + + | Medication Refill | | + + + Encounter Details +--------+--------+ + + + | Date | Type | Department | Care Team | Description | +--------+--------+ + + + | 12/08/ | Refill | [facility] | Scot Anton, | Medication Refill | | 2018 | | [facility] | [address] | | | | | [address] | [place] | | | | | [place] | [address] | | | | | [address] | | | | | | [phone] | | | +--------+--------+ + + + [...]
--- OUTSIDE RECORDS SUMMARY | ~2019-02-03 | XMS | Encounter Summary ---
Demographics + + + | Address | [address] | | | [place] [address] | + + + | Home Phone | | + + + | Preferred Language | Unknown | + + + | Marital Status | | + + + | Baptist Affiliation | 1041 | + + + [...] Team Providers + +------+ + | Care Maintenance Supervisor Name | Role | Phone | + +------+ + | Pepper Kamara | PCP | | + +------+ + Encounter Details +--------+ + + + + | Date | Type | Department | Care Team | Description | +--------+ + + + + | 10/13/ | Hospital | [facility] | Carmen Marquez | | | 2010 | Encounter | MED [facility] EM[facility]Y | Marisol Brand MD [address] | | | | | [address] | [facility] | | | | | [place] | [place] [address] | | | | | [address] | [phone] | | | | | [phone] | | | +--------+ + + + [...] + | URINALYSIS, REFLEX | Routin | 10/13/2010 | | Results for this | | MICROSCOPIC AND/OR | e | 5:45 PM | | procedure are in the | | CULTURE | | PDT | | results section. | + +--------+ + + + documented in this encounter Results Urinalysis, Reflex Microscopic and/or Culture (10/13/2010 5:45 PM PDT) + + + + + + | Component | Value | Ref Range | Performed | Pathologist | | | | | At | Signature | + + + + + + | COLLECTION | VOID | | [facility] | | | METHOD [...] + + + + | Clarity | HAZY | | [facility] | | | | [...] + + + + | Specific | 1.020 | 1.001 - 1.030 | [facility] | | | [place] | | | [facility] | | | | | | MED[facility] | | | | | | CENTER - | | | | | | LABORATORY | | + + + + + + | Blood, | NEGATIVE | NEGATIVE | [facility] | | | Urine | | | [facility] | | | | | | MEDICAL | | | | | | CENTER - | | | | | | LABORATORY | | + + + + + + | pH, Urine | 5.5 | 5.0 - 8.0 | [facility] | [...] | | Urine | | | [facility] | | | | | | MEDICAL | | | | | | CENTER - | | | | | | LABORATORY | | + + + + + + | Leukocyte | TRACE | NEGATIVE | [facility] | | | Esterase, | | | [facility] | | | Urine | | | MEDICAL | | | | | | CENTER - | | | | | | LABORATORY | | + + + + + + | WBC UA | 10-20 | 0 - 1 /hpf | [facility] | | | | | | [facility] | | | | | | MEDICAL | | | | | | CENTER - | | | | | | LABORATORY | | + + + + + + | RBC UA | NONE | 0 - 4 /hpf | [facility] | | | | | | [facility] | | | | | | [...] ST. | [address] | [place] | [phone] | | [facility] | | [address] | | | - LABORATORY | | | | + + + + + | [facility] | [address] | [place], [place] | | | [facility] | | [address] | | | - LABORATORY | | | | + + + + + documented in this encounter Visit Diagnoses Not on filedocumented in this encounter"
--- OUTSIDE RECORDS SUMMARY | ~2019-02-03 | XMS | Encounter Summary ---
Demographics + + + | Address | [address] | | | [place] [address] | + + + | Home Phone | | + + + | Preferred Language | Unknown | + + + | Marital Status | | + + + | Buddhist Affiliation | 1041 | + + + | Race | Unknown | + + + | Ethnic Group | Unknown | + + + Author + + + | Author | [facility] | | | and [place] | + + + | Organization | [facility] | | | [...] Team Providers + +------+ + | Care Business Objects Name | Role | Phone | + +------+ + PCP | Unavailable | + +------+ + Encounter Details +--------+ + + + + | Date | Type | Department | Care Team | Description | +--------+ + + + + | 03/22/ | Hospital | [facility] | | | | 2007 | Encounter | MED CTR EM[facility] | | | | | | CENTER [address] | | | | | | [place] | | | | | | [address] | | | | | | [phone] | | | +--------+ + + + [...]
--- OUTSIDE RECORDS SUMMARY | ~2019-02-03 | XMS | Encounter Summary ---
Demographics + + + | Address | [address] | | | [place] [address] | + + + | Home Phone | | + + + | Preferred Language | Unknown | + + + | Marital Status | | + + + | Alevism Affiliation | 1041 | + + + | Race | Unknown | + + + | Ethnic Group | Unknown | + + + Author + + + | Author | [facility] | | | and [place] | + + + | Organization | [facility] | | | [...] Team Providers + +------+ + | Care Choir Singer Name | Role | Phone | + +------+ + PCP | Unavailable | + +------+ + Encounter Details +--------+ + + + + | Date | Type | Department | Care Team | Description | +--------+ + + + + | 09/11/ | Hospital | [facility] | | | | 2008 | Encounter | MED CTR GENERIC OP | | | | | | CONV DEPT [address] | | | [address] | [address], | | | | | | [place] [address] | | | | | | [phone] | | | +--------+ + + + [...]
--- OUTSIDE RECORDS SUMMARY | ~2019-02-03 | XMS | Encounter Summary ---
Demographics + + + | Address | [address] | | | [place] [address] | + + + | Home Phone | | + + + | Preferred Language | Unknown | + + + | Marital Status | | + + + | Sabianist Affiliation | [id number] | + + + | Race | Unknown | + + + | Ethnic Group | Unknown | + + + Author + + + | Author | [facility] | | | and Samirana | + + + | Organization | [facility] | | | [...] Team Providers + +------+ + | Care Ultrasound Coordinator Name | Role | Phone | + +------+ + | No, Physician | PCP | Unavailable | + +------+ + Reason for Visit + + + | Reason | Comments | + + + | Shortness of Breath | | + + + | Wheezing | | + + + | Cold-like Symptoms | | + + + Auth/Cert +--------+--------+ + + + + | Status | Reason | Specialty | Diagnoses / | Referred By | Referred To | | | | | Procedures | Contact | Contact | +--------+--------+ + + + + | | | | Diagnoses | | | | | | | Essential | | | | | | | hypertension | | | | | | | COPD with | | | | | | | acute | | | | | | | exacerbation | | | | | | | (HCC) | | | | | | | Acute | | | | | | | respiratory | | | | | | | failure with | | | | | | | hypoxia | | | | | | | (HCC) Acute | | | | | | | bronchitis, | | | | | | | unspecified | | | | | | | organism | | | | | | | Depression, | | | | | | | unspecified | | | | | | | depression | | | | | | | type | | | | | | | | | | +--------+--------+ + + + + Encounter Details +--------+ + + + + | Date | Type | Department | Care Team | Description | +--------+ + + + + | 12/22/ | Hospital | [facility] | Luis Law, | COPD with acute | | 2016 - | Encounter | [facility] | [address] | exacerbation (HCC) | | | | [address] | [facility], [place] | (Primary Dx); Acute | | 12/27/ | | [place] [address] | [id number] | respiratory failure | | 2016 | | [phone] | | with hypoxia (HCC); | | | | | Jaquan Burk, | Acute bronchitis, | | | | | DO [address] | unspecified | | | | | [address] [place], | organism; | | | | | [place] [address] | Depression, | | | | | [phone] | unspecified | | | | | | depression type; | | | | | | Essential | | | | | | hypertension; | | | | | | Tobacco abuse | +--------+ + + + + Social [...] + + documented as of this encounter Last Filed Vital Signs + + + + + | Vital Sign | Reading | Time Taken | Comments | + + + + + | Blood Pressure | 140/86 | 12/28/2015 8:37 AM | | | | | PDT | | + + + + + | Pulse | 86 | 12/28/2015 8:37 AM | | | | | PDT | | + + + + + | Temperature | 36.5 C (97.7 F) | 12/28/2015 4:00 AM | | | | | PDT | | + + + + + | Respiratory Rate | 20 | 12/28/2015 8:37 AM | | | | | PDT | | + + + + + | Oxygen Saturation | 90% | 12/28/2015 8:37 AM | | | | | PDT | | + + + + + | Inhaled Oxygen | - | - | | | Concentration | | | | + + + + + | Weight | 68.2 kg (150 lb 5.7 | 12/23/2015 11:45 PM | | | | oz) | PDT | | + + + + + | Height | 157.5 cm (5' 2") | 12/23/2015 11:45 PM | | | | | PDT | | + + + + + | Body Mass Index | 27.5 | 12/23/2015 11:45 PM | | | | | PDT | | + + + + + documented in this encounter Discharge Summaries Thang Ibarra MD - 12/28/2015 9:50 AM PDTFormatting of this note might be different f rom the original. DISCHARGE SUMMARY Patient Name: Pepper Hand : 1960 Date of Admission: 12/23/2015 Date of Discharge: 12/28/2015 Admitting Physician: Jaquan Burk DO Discharging Physician: Thang Ibarra MD Primary Care Provider: No Physician on file Discharge Diagnoses: Principal Problem: Acute respiratory failure with hypoxia Active Problems: Tobacco abuse COPD with acute exacerbation Acute bronchitis BIPOLAR DISORDER UNSPECIFIED Depression Essential hypertension Resolved Problems: * No resolved hospital problems. * Patient Active Problem List Diagnosis Mixed anxiety depressive disorder BIPOLAR DISORDER UNSPECIFIED ASTHMA ALLERGIC RHINITIS GERD HYPERTENSION IRRITABLE BOWEL SYNDROME OBESITY HYPERLIPIDEMIA DIARRHEA ABDOMINAL PAIN, RIGHT UPPER QUADRANT ABDOMINAL WALL HERNIA EPISTAXIS, RECURRENT HEMORRHOIDS, EXTERNAL OVERACTIVE BLADDER Tobacco abuse HERNIA, VENTRAL PARESTHESIA VITAMIN D DEFICIENCY CHRONIC KIDNEY DISEASE STAGE II (MILD) Routine gynecological examination Needs flu shot Other screening mammogram History of colon polyps COPD with acute exacerbation Acute bronchitis Acute respiratory failure with hypoxia Depression Essential hypertension Consultants: None Procedures: 12/22 CXR: Heart is normal size. Mediastinal and hilar contours are within normal limits. Mild pulmonary hyperinflation may reflect COPD. Lungs are otherwise clear. No pleural effusion. No pneumothorax. No acute osseous abnormality. IMPRESSION - 1. No acute cardiopulmonary abnormality. 2. Mild pulmonary hyperinflation may reflect COPD. Reason for Admission: Please refer to the H&P for full details. In short, this is a 55 y.o. female with a histor y of COPD with ongoing smoking, bipolar disorder who presented with acute hypoxic respirator y failure. Problem-Oriented Hospital Course: Acute respiratory failure with hypoxia with COPD, acute bronchitis Hypoxic on admission requiring oxygen due to acute COPD exacerbation on chronic COPD. She was started on Solu-Medrol, then switched to prednisone when respirator y symptoms improved, and will be discharged on a taper over the next week starting at 40 mg daily. Has chronic COPD, and tiotropium and scheduled fluticasone were added to her chroni c regimen. She was started on ceftriaxone and azithromycin at admission, and will take two more days of azithromycin at discharge. At the time of discharge, she was on room air at [facility], but may need oxygen with exertion. She was advised that the most important thing she can do is quit smoking, which she plans t o do. She was discharged with a nicotine patch prescribed daily. BIPOLAR DISORDER UNSPECIFIED with depression Continue Lexapro, mood stable at discharge. Essential hypertension Blood pressure is appropriately controlled on atenolol Code Status: Full Code Disposition: [facility] at discharge Discharge Condition: stable Follow-up Information Follow up with Scot Donaldson MD In 2 weeks. Specialty: Family Medicine Contact information: [address] [place] [id number] Discharge Medications New Medications Details albuterol-ipratropium 2.5-0.5 mg/3 mL Soln Notes to Patient: For wheezing or shortness of breath (COPD rescue medication) Take 3 mLs by nebulization 4 times daily as needed. aka: DUONEB azithromycin 250 mg tablet Notes to Patient: For bronchitis. On 12/29/15, then stop Take 1 tablet by mouth Daily for 2 days. Indications: Acute Worsening of Chronic Obstructi ve Pulmonary Disease aka: ZITHROMAX cefdinir 300 mg capsule Notes to Patient: For bronchitis. Start 10/4 PM, end 10/8 AM. Take 1 capsule by mouth 2 times daily for 5 days. aka: OMNICEF fluticasone 220 mcg/puff inhaler Notes to Patient: To help breathing (COPD control medication) Inhale 1 puff into the lungs 2 times daily. aka: FLOVENT HFA nicotine 14 mg/24 hr Apply new patch every 24 hours to nonhairy, clean, dry skin on upper body or upper arm; ea ch patch should be applied to a different site aka: NICODERM predniSONE 20 mg tablet Notes to Patient: For COPD exacerbation. 40 mg daily on 12/27 and 12/28 30 mg daily on 12/29 and 12/30 20 mg daily on 12/31 and 01/01 10 mg daily on 01/02 and 01/03 Then STOP and follow primary care provider instructions 40 MG PO for 2 days 30 MG PO for 2 days 20 MG PO for 2 days 10 MG PO for 2 days and then T alk to your PCP and stop Prednisone. aka: DELTASONE tiotropium 18 mcg inhalation capsule Inhale 1 capsule into the lungs Daily. aka: SPIRIVA Changed Medications Details PROAIR HFA 90 mcg/puff inhaler Generic drug: albuterol inhale 2 puffs by mouth every 4 hours if needed for shortness of breath What changed: Another medication with the same name was added. Make sure you understand ho w and when to take each. albuterol 2.5 mg/3 mL nebulizer solution Take 3 mLs by nebulization 4 times daily. What changed: You were already taking a medication with the same name, and this prescripti on was added. Make sure you understand how and when to take each. Unchanged Medications Details atenolol 25 mg tablet Notes to Patient: For blood pressure take 1 tablet by mouth daily aka: TENORMIN calcium-vitamin D 600-400 MG-UNIT Tabs Notes to Patient: For bone health Take 1 tablet by mouth 2 times daily. aka: Calcium 600 + D ergocalciferol 72033 UNITS capsule Notes to Patient: For bone health 1 by mouth daily for 7 days, then 1 by mouth once weekly for 12 weeks aka: VITAMIN D2 escitalopram 20 mg tablet Notes to Patient: For mood Take 1 tablet by mouth Daily. Brand NEcessary aka: LEXAPRO loratadine 10 mg tablet Notes to Patient: For allergies Take 1 tablet by mouth Daily. aka: CLARITIN omeprazole 20 mg capsule Notes to Patient: To help prevent heartburn take 1 capsule by mouth once daily aka: priLOSEC Studies With Pending Results: None Greater than 30 minutes were spent on discharge and coordination of post-hospital care. Electronically signed by: Thang Ibarra MD, 12/28/2015 9:50 [facility] documented in this encounter Medications at Time of Discharge + + + +---------+ + + | Medication | Sig | Dispensed | Refills | Start | End Date | | | | | | Date | | + + + +---------+ + + | albuterol 2.5 mg/3 | Take 3 mLs by | 360 | 0 | 12/28/19 | | | mL nebulizer | nebulization 4 times | vial | | 16 | 7 | | solution | daily. | | | | | + + + +---------+ + + | | Take 3 mLs by | 360 mL | 0 | 12/27/19 | | | albuterol-ipratropiu | nebulization 4 times | | | 16 | 7 | | m (DUONEB) 2.5-0.5 | daily as needed. | | | | | | mg/3 mL SOLN | | | | | | + + + +---------+ + + | atenolol | take 1 tablet by | 30 | 0 | 06/28/19 | | | (TENORMIN) 25 mg | mouth daily | tablet | | 13 | 7 | | tablet | | | | | | + + + +---------+ + + | azithromycin | Take 1 tablet by | 2 | 0 | 12/27/19 | | | (ZITHROMAX) 250 mg | mouth Daily for 2 | tablet | | 16 | 6 | | tabletIndications: | days. Indications: | | | | | | Acute Exacerbation | Acute Worsening of | | | | | | of COPD | Chronic Obstructive | | | | | | | Pulmonary Disease | | | | | + + + +---------+ + + | calcium-vitamin D | Take 1 tablet by | 180 | 3 | 12/22/19 | | | (CALCIUM 600 + D) | mouth 2 times daily. | tablet | | 12 | 7 | | 600-400 MG-UNIT TABS | | | | | | + + + +---------+ + + | cefdinir (OMNICEF) | Take 1 capsule by | 10 | 0 | 12/27/19 | | | 300 mg capsule | mouth 2 times daily | capsule | | 16 | 6 | | | for 5 days. | | | | | + + + +---------+ + + | ergocalciferol | 1 by mouth daily for | | 0 | 12/13/19 | | | (ERGOCALCIFEROL) | 7 days, then 1 by | | | 12 | 7 | | [address]682 UNITS capsule | mouth once weekly | | | | | | | for 12 weeks | | | | | + + + +---------+ + + | escitalopram | Take 1 tablet by | 30 | 5 | 04/01/19 | | | (LEXAPRO) 20 mg | mouth Daily. Brand | tablet | | 13 | 7 | | tablet | NEcessary | | | | | + + + +---------+ + + | fluticasone | Inhale 1 puff into | | 0 | 12/27/19 | | | (FLOVENT HFA) 220 | the lungs 2 times | | | 16 | 9 | | mcg/puff inhaler | daily. | | | | | + + + +---------+ + + | loratadine | Take 1 tablet by | 30 | 5 | 02/07/20 | | | (CLARITIN) 10 mg | mouth Daily. | tablet | | 12 | 8 | | tablet | | | | | | + + + +---------+ + + | nicotine | Apply new patch | 28 | 0 | 12/28/19 | | | (NICODERM) 14 mg/24 | every 24 hours to | patch | | 16 | 7 | | hr | nonhairy, clean, dry | | | | | | | skin on upper body | | | | | | | or upper arm; each | | | | | | | patch should be | | | | | | | applied to a | | | | | | | different site | | | | | + + + +---------+ + + | omeprazole | take 1 capsule by | 90 | 0 | 06/28/19 | | | (PRILOSEC) 20 mg | mouth once daily | capsule | | 13 | 7 | | capsule | | | | | | + + + +---------+ + + | predniSONE | 40 MG PO for 2 | | 0 | 12/27/19 | | | (DELTASONE) 20 mg | days30 MG PO for 2 | | | 16 | 7 | | tablet | days20 MG PO for 2 | | | | | | | days10 MG PO for 2 | | | | | | | days and then Talk | | | | | | | to your PCP and stop | | | | | | | Prednisone. | | | | | + + + +---------+ + + | PROAIR HFA 108 (90 | inhale 2 puffs by | 8.5 g | 0 | 06/28/19 | | | BASE) MCG/ACT | mouth every 4 hours | | | 13 | 7 | | inhaler | if needed for | | | | | | | shortness of breath | | | | | + + + +---------+ + + | tiotropium | Inhale 1 capsule | 30 | 1 | 12/28/19 | | | (SPIRIVA) 18 mcg | into the lungs | capsule | | 16 | 8 | | inhalation capsule | Daily. | | | | | + + + +---------+ + + documented as of this encounter Progress Notes Luis Barth MD - 12/27/2015 7:46 AM PDTFormatting of this note might be different f rom the original. [facility] Service: Hospitalist Progress Note Pt: Pepper Guerrero Panchitoariadna AGE/SEX: 55 y.o. female ROOM: 446/446-01 : 1960 PCP: No Physician on file ADMIT DATE: 12/23/2015 TODAY'S DATE: 12/27/2015 Hospital Day/Hospital Course: LOS: 4 days 55 years old female with past medical history of chronic COPD, essential hypertension, unsp ecified hyperlipidemia presented to the hospital with shortness of breath, wheezing and prod uctive cough and was in acute respiratory failure. SUBJECTIVE: Patient seen and examine. She is feeling better. Shortness of breath is much better. Her cough is better. No chest pain, SNOW. Had no orthopnea or PND. No Abdominal pain, N/V or fever. Still feeling tired and fatigued. No dizziness or lightheadedness. Scheduled Medications: albuterol-ipratropium 3 mL Nebulization RT Q4H atenolol 25 mg Oral Daily azithromycin 250 mg Oral Daily budesonide 0.5 mg Nebulization RT BID cefTRIAXone (ROCEPHIN) IV 1 g Intravenous Daily enoxaparin (LOVENOX) injection 40 mg Subcutaneous Daily escitalopram 20 mg Oral Daily insulin lispro 0-12 Units Subcutaneous 4x Daily WC and HS loratadine 10 mg Oral Daily pantoprazole 40 mg Oral QAM AC predniSONE 40 mg Oral Daily Continuous Infusions sodium chloride 0.9% 50 mL/hr at 12/26/15 1357 PRN Medications acetaminophen, albuterol, Hypoglycemia Management AND POCT Glucose AND dextrose, gu aiFENesin, nicotine, nicotine polacrilex, ondansetron, senna Allergy: Allergies Allergen Reactions Clindamycin Hcl Codeine Sulfate Hydrocodone Ibuprofen Lamotrigine Sulfa Antibiotics OBJECTIVE: Vitals: Patient Vitals for the past 24 hrs: BP Temp Temp src Pulse Resp SpO2 12/26/152025 (!) 139/92 mmHg 36.6 C (97.8 F) Oral 69 16 90 % 12/26/152001 - - - 68 - 93 % 12/26/15 1551 129/84 mmHg 36.5 C (97.7 F) - 74 - 92 % 12/26/15 1501 - - - 72 16 94 % 12/26/15 1121 - - - 68 16 94 % 12/26/15 0800 126/78 mmHg 36.6 C (97.9 F) Oral 74 24 93 % I&O Detailed Table: Intake/Output Summary (Last 24 hours) at 12/27/15 0746 Last data filed at 12/26/15 2359 Gross per 24 hour Intake 2952 ml Output 0 ml Net 2952 ml Patient Vitals for the past 96 hrs: Weight 09/29/16 2345 68.2 kg (150 lb 5.7 oz) 12/23/15 1521 68.04 kg (150 lb) Hemodynamics Last 24hrs: Physical Examination: Constitutional: Sitting comfortably in the bed. Having a breakfast. Feeling comfortable. HEENT: Neck supple, no JVD, non icteric sclera. Cardiovascular: Normal rate, regular rhythm, normal heart sounds with S1 and S2, and intact distal pulses. Exam reveals no gallop and no friction rub. No murmur heard. Pulmonary/Chest: Air entry improved. No stridor. No respiratory distress. No wheezing today. no rales. exhibits no tenderness. Abdominal: Soft. Bowel sounds are normal. exhibits no distension and no mass. There is no t enderness. There is no rebound and no guarding. Extremeties/Musculoskeletal: Normal range of motion.exhibits no tenderness. exhibits no ed ronald. Neurological: Alert and oriented to person, place, and time. Has normal reflexes. No cran ial nerve deficit. Exhibits normal muscle tone. Coordination normal. Skin: Skin is warm and dry. No rash noted. No erythema. No pallor. Psychiatric: Has a normal mood and affect. Behavior is normal. Judgment normal. LABS: Recent Labs Lab 12/27/15 0516 12/26/15 0548 12/25/15 0503 WBC 12.9* 11.8* 19.1* HGB 15.0 14.3 14.1 HCT 42.9 41.5 40.7 PLT 276 248 256 Recent Labs Lab 12/27/15 0516 12/26/15 0548 12/25/15 0503 12/23/15 1535 NA 144 143 143 < > 137 K 3.6 3.4* 3.4* < > 4.5 CL 107 108 111* < > 102 CO2 30 28 26 < > 26 BUN 13 13 13 < > 11 CALCIUM 9.1 9.1 8.8 < > 9.4 BILITOT -- -- -- -- 1.9* ALKPHOS -- -- -- -- 78 ALT -- -- -- -- 16 AST -- -- -- -- 35 < > = values in this interval not displayed. Phosphorus: Lab Results Component Value Date PHOS 4.0 12/06/2011 PROBLEM LIST Principal Problem: Acute respiratory failure with hypoxia Active Problems: COPD with acute exacerbation Acute bronchitis BIPOLAR DISORDER UNSPECIFIED Depression Essential hypertension ASSESSMENT & PLAN 55 years old female with past medical history of chronic COPD, essential hypertension, unsp ecified hyperlipidemia presented to the hospital with shortness of breath, wheezing and prod uctive cough and was in acute respiratory failure. Principal Problem: Acute respiratory failure with hypoxia with COPD, acute bronchitis White cell count is about the same. Shortness of breath has significantly improved. Phys ical therapy recommended rehab. Waiting insurance authorization before we can discharge her to rehabilitation. She was hypoxic when she came to the hospital requiring oxygen. More likely the etiology o f acute respiratory failure is acute COPD exacerbation on chronic COPD. She was started on Solu-Medrol. I switched her to prednisone. I added Spiriva. BIPOLAR DISORDER UNSPECIFIED with depression Continue with Lexapro Essential hypertension Blood pressure is appropriately controlled on atenolol She is ready to be discharged once insurance authorization completed. Luis Barth MD, FACP 12/27/2015 7:46 Portions of this chart may have been created with [employer] voice recognition software. Occasi onal wrong-word or sound-alike substitutions may have occurred due to the inherent joseph itations of voice recognition software. Please read the chart carefully and recognize, using context, where these substitutions have occurred. ab, Luis Zavala MD - 12/26/2015 9:06 AM PDT [facility] Service: Hospitalist Progress Note Pt: Pepper Hand AGE/SEX: 55 y.o. female ROOM: 446/446-01 : 1960 PCP: No Physician on file ADMIT DATE: 12/23/2015 TODAY'S DATE: 12/26/2015 Hospital Day/Hospital Course: LOS: 3 days 55 years old female with past medical history of chronic COPD, essential hypertension, unsp ecified hyperlipidemia presented to the hospital with shortness of breath, wheezing and prod uctive cough and was in acute respiratory failure. SUBJECTIVE: Patient seen and examine. She states that shortness of breath is much better while she is at rest but when she walked she gets short of breath. Her cough is better. No chest pain, SNOW. Had no orthopnea or PND. No Abdominal pain, N/V or fever. Still feeling tired and fat igued. No dizziness or lightheadedness. Scheduled Medications: albuterol-ipratropium 3 mL Nebulization RT Q4H atenolol 25 mg Oral Daily azithromycin 250 mg Oral Daily budesonide 0.5 mg Nebulization RT BID cefTRIAXone (ROCEPHIN) IV 1 g Intravenous Daily enoxaparin (LOVENOX) injection 40 mg Subcutaneous Daily escitalopram 20 mg Oral Daily insulin lispro 0-12 Units Subcutaneous 4x Daily WC and HS loratadine 10 mg Oral Daily pantoprazole 40 mg Oral QAM AC predniSONE 40 mg Oral Daily Continuous Infusions sodium chloride 0.9% 50 mL/hr at 12/24/15 2143 PRN Medications acetaminophen, albuterol, Hypoglycemia Management AND POCT Glucose AND dextrose, gu aiFENesin, nicotine, nicotine polacrilex, ondansetron, senna Allergy: Allergies Allergen Reactions Clindamycin Hcl Codeine Sulfate Hydrocodone Ibuprofen Lamotrigine Sulfa Antibiotics OBJECTIVE: Vitals: Patient Vitals for the past 24 hrs: BP Temp Temp src Pulse Resp SpO2 12/26/15 0800 126/78 mmHg 36.6 C (97.9 F) Oral 74 24 93 % 12/26/15 0729 - - - 77 24 95 % 12/26/15 0445 - - - 72 20 97 % 12/26/15 0400 176/79 mmHg 35.6 C (96.1 F) Oral 85 18 95 % 12/26/15 0112 - - - 63 20 93 % 12/25/152048 - - - 70 22 93 % 12/25/151952 (!) 161/94 mmHg 36.4 C (97.5 F) Oral 79 20 91 % 12/25/15 1600 122/76 mmHg 37.1 C (98.8 F) Oral 82 18 91 % 12/25/15 1500 - - - 80 20 92 % 12/25/15 1155 120/78 mmHg 36.2 C (97.2 F) Oral 77 20 93 % 12/25/15 1124 - - - 77 20 93 % I&O Detailed Table: Intake/Output Summary (Last 24 hours) at 12/26/15 0906 Last data filed at 12/26/15 0606 Gross per 24 hour Intake 2620 ml Output 800 ml Net 1820 ml Patient Vitals for the past 96 hrs: Weight 12/23/15 2345 68.2 kg (150 lb 5.7 oz) 12/23/15 1521 68.04 kg (150 lb) Hemodynamics Last 24hrs: Physical Examination: Constitutional: She is lying flat. Talking to me appropriately and is not using accessory muscles. HEENT: Neck supple, no JVD, non icteric sclera. Cardiovascular: Normal rate, regular rhythm, normal heart sounds with S1 and S2, and intact distal pulses. Exam reveals no gallop and no friction rub. No murmur heard. Pulmonary/Chest: Effort normal and breath sounds normal. No stridor. No respiratory distres s. No wheezing today. no rales. exhibits no tenderness. Abdominal: Soft. Bowel sounds are normal. exhibits no distension and no mass. There is no t enderness. There is no rebound and no guarding. Extremeties/Musculoskeletal: Normal range of motion.exhibits no tenderness. exhibits no ed ronald. Neurological: Alert and oriented to person, place, and time. Has normal reflexes. No cran ial nerve deficit. Exhibits normal muscle tone. Coordination normal. Skin: Skin is warm and dry. No rash noted. No erythema. No pallor. Psychiatric: Has a normal mood and affect. Behavior is normal. Judgment normal. LABS: Recent Labs Lab 12/26/15 0548 12/25/15 0503 12/24/15 0554 WBC 11.8* 19.1* 15.4* HGB 14.3 14.1 15.1 HCT 41.5 40.7 44.1 PLT 248 256 261 Recent Labs Lab 12/26/15 0548 12/25/15 0503 12/24/15 0554 12/23/15 1535 NA 143 143 143 137 K 3.4* 3.4* 3.7 4.5 CL 108 111* 109 102 CO2 28 26 24 26 BUN 13 13 9 11 CALCIUM 9.1 8.8 9.0 9.4 BILITOT -- -- -- 1.9* ALKPHOS -- -- -- 78 ALT -- -- -- 16 AST -- -- -- 35 Phosphorus: Lab Results Component Value Date PHOS 4.0 12/06/2011 PROBLEM LIST Principal Problem: Acute respiratory failure with hypoxia Active Problems: COPD with acute exacerbation Acute bronchitis BIPOLAR DISORDER UNSPECIFIED Depression Essential hypertension ASSESSMENT & PLAN 55 years old female with past medical history of chronic COPD, essential hypertension, unsp ecified hyperlipidemia presented to the hospital with shortness of breath, wheezing and prod uctive cough and was in acute respiratory failure. Principal Problem: Acute respiratory failure with hypoxia with COPD, acute bronchitis White cell count much better. She gets short of breath when she walked. I will get a phy sical therapy today. White cell count much improved. She was hypoxic when she came to the hospital requiring oxygen. More likely the etiology of acute respiratory failure is acute C OPD exacerbation on chronic COPD. She was started on Solu-Medrol. I'm going to switch to t he prednisone. I agree with processing. I Added azithromycin my seen as well. I will ad d Spiriva. I will have physical therapy to see this patient. And home oxygen evaluation BIPOLAR DISORDER UNSPECIFIED with depression Continue with Lexapro Essential hypertension Blood pressure is appropriately controlled on atenolol Luis Barth MD, FACP 12/26/2015 9:06 Portions of this chart may have been created with [employer] voice recognition software. Occasi onal wrong-word or sound-alike substitutions may have occurred due to the inherent joseph itations of voice recognition software. Please read the chart carefully and recognize, using context, where these substitutions have occurred. ab, Luis Zavala MD - 12/25/2015 8:24 AM PDT [facility] Service: Hospitalist Progress Note Pt: Pepper Hand AGE/SEX: 55 y.o. female [facility]: [id number] : 1960 PCP: No Physician on file ADMIT DATE: 12/23/2015 TODAY'S DATE: 12/25/2015 Hospital Day/Hospital Course: LOS: 2 days 55 years old female with past medical history of chronic COPD, essential hypertension, unsp ecified hyperlipidemia presented to the hospital with shortness of breath, wheezing and prod uctive cough and was in acute respiratory failure. SUBJECTIVE: Patient seen and examine. She is feeling comfortable today. Shortness of breath is improv ed. She is having a cough today. No chest pain, SNOW. Had no orthopnea or PND. No Abdomina l pain, N/V or fever. Still feeling tired and fatigued. No dizziness or lightheadedness. Scheduled Medications: albuterol-ipratropium 3 mL Nebulization RT Q4H atenolol 25 mg Oral Daily azithromycin 250 mg Oral Daily budesonide 0.5 mg Nebulization RT BID cefTRIAXone (ROCEPHIN) IV 1 g Intravenous Daily enoxaparin (LOVENOX) injection 40 mg Subcutaneous Daily escitalopram 20 mg Oral Daily insulin lispro 0-12 Units Subcutaneous 4x Daily WC and HS loratadine 10 mg Oral Daily pantoprazole 40 mg Oral QAM AC predniSONE 40 mg Oral Daily Continuous Infusions sodium chloride 0.9% 50 mL/hr at 12/24/15 2143 PRN Medications acetaminophen, albuterol, Hypoglycemia Management AND POCT Glucose AND dextrose, gu aiFENesin, nicotine, nicotine polacrilex, ondansetron, senna Allergy: Allergies Allergen Reactions Clindamycin Hcl Codeine Sulfate Hydrocodone Ibuprofen Lamotrigine Sulfa Antibiotics OBJECTIVE: Vitals: Patient Vitals for the past 24 hrs: BP Temp Temp src Pulse Resp SpO2 12/25/15 0752 - - - 77 20 91 % 12/25/15 0622 - - - - 23 - 12/25/15 0357 122/76 mmHg 36.1 C (97 F) Oral 76 18 91 % 12/25/15 0351 - - - 80 20 92 % 12/25/15 0110 - - - 62 20 95 % 12/24/15 2330 - - - 78 20 96 % 12/24/15 2320 - - - 82 30 90 % 12/24/15 2000 129/75 mmHg 36.3 C (97.3 F) Oral 71 20 95 % 12/24/15 1600 119/76 mmHg - - - - - 12/24/15 1559 98/57 mmHg 37.6 C (99.7 F) Oral 80 24 90 % 12/24/15 1358 - - - 73 22 93 % 12/24/15 1029 - - - 76 20 93 % 12/24/15 0831 - - - 90 20 90 % I&O Detailed Table: Intake/Output Summary (Last 24 hours) at 12/25/15 0824 Last data filed at 12/25/15 0600 Gross per 24 hour Intake 2469 ml Output 0 ml Net 2469 ml Patient Vitals for the past 96 hrs: Weight 12/23/15 2345 68.2 kg (150 lb 5.7 oz) 12/23/15 1521 68.04 kg (150 lb) Hemodynamics Last 24hrs: Physical Examination: Constitutional: Sitting comfortably on the bed does not look like in any distress.. HEENT: Neck supple, no JVD, non icteric sclera. Cardiovascular: Normal rate, regular rhythm, normal heart sounds with S1 and S2, and intact distal pulses. Exam reveals no gallop and no friction rub. No murmur heard. Pulmonary/Chest: Effort normal and breath sounds normal. No stridor. No respiratory distres s. her wheezing has significantly improved. no rales. exhibits no tenderness. Abdominal: Soft. Bowel sounds are normal. exhibits no distension and no mass. There is no t enderness. There is no rebound and no guarding. Extremeties/Musculoskeletal: Normal range of motion.exhibits no tenderness. exhibits no ed ronald. Neurological: Alert and oriented to person, place, and time. Has normal reflexes. No cran ial nerve deficit. Exhibits normal muscle tone. Coordination normal. Skin: Skin is warm and dry. No rash noted. No erythema. No pallor. Psychiatric: Has a normal mood and affect. Behavior is normal. Judgment normal. LABS: Recent Labs Lab 12/25/15 0503 12/24/15 0554 12/23/15 1535 WBC 19.1* 15.4* 15.0* HGB 14.1 15.1 17.5* HCT 40.7 44.1 50.9* PLT 256 261 289 Recent Labs Lab 12/25/15 0503 12/24/15 0554 12/23/15 1535 NA 143 143 137 K 3.4* 3.7 4.5 CL 111* 109 102 CO2 26 24 26 BUN 13 9 11 CALCIUM 8.8 9.0 9.4 BILITOT -- -- 1.9* ALKPHOS -- -- 78 ALT -- -- 16 AST -- -- 35 Phosphorus: Lab Results Component Value Date PHOS 4.0 12/06/2011 PROBLEM LIST Principal Problem: Acute respiratory failure with hypoxia Active Problems: COPD with acute exacerbation Acute bronchitis BIPOLAR DISORDER UNSPECIFIED Depression Essential hypertension ASSESSMENT & PLAN 55 years old female with past medical history of chronic COPD, essential hypertension, unsp ecified hyperlipidemia presented to the hospital with shortness of breath, wheezing and prod uctive cough and was in acute respiratory failure. Principal Problem: Acute respiratory failure with hypoxia with COPD, acute bronchitis She is feeling much better today. Though she still having a leukocytosis but I am more in clined towards leukocytosis is related to the straight right.She was hypoxic when she came t o the hospital requiring oxygen. More likely the etiology of acute respiratory failure is a cute COPD exacerbation on chronic COPD. She was started on Solu-Medrol. I'm going to switc h to the prednisone. I agree with processing. I addedazithromycin my seen as well. I wi ll add Spiriva BIPOLAR DISORDER UNSPECIFIED with depression Continue with Lexapro Essential hypertension Blood pressure is appropriately controlled on atenolol Luis Barth MD, FACP 12/25/2015 8:24 Portions of this chart may have been created with [employer] voice recognition software. Occasi onal wrong-word or sound-alike substitutions may have occurred due to the inherent joseph itations of voice recognition software. Please read the chart carefully and recognize, using context, where these substitutions have occurred. alisaías, Luis Zavala MD - 12/24/2015 7:25 AM PDT [facility] Service: Hospitalist Progress Note Pt: Pepper Hand AGE/SEX: 55 y.o. female ROOM: 446/446-01 : 1960 PCP: No Physician on file ADMIT DATE: 12/23/2015 TODAY'S DATE: 12/24/2015 Hospital Day/Hospital Course: LOS: 1 day 55 years old female with past medical history of chronic COPD, essential hypertension, unsp ecified hyperlipidemia presented to the hospital with shortness of breath, wheezing and prod uctive cough and was in acute respiratory failure. SUBJECTIVE: Patient seen and examine. Complaint of shortness of breath is still there.. No chest pain, SNOW. No cough on recumbency. Had no orthopnea or PND. No Abdominal pain, N/V or fever. Stil l feeling tired and fatigued. No dizziness or lightheadedness. Scheduled Medications: albuterol-ipratropium 3 mL Nebulization RT Q6H atenolol 25 mg Oral Daily cefTRIAXone (ROCEPHIN) IV 1 g Intravenous Daily enoxaparin (LOVENOX) injection 40 mg Subcutaneous Daily escitalopram 20 mg Oral Daily insulin lispro 0-12 Units Subcutaneous 4x Daily WC and HS loratadine 10 mg Oral Daily pantoprazole 40 mg Oral QAM AC sodium chloride 10 mL Nebulization RT Once Continuous Infusions sodium chloride 0.9% 50 mL/hr at 12/23/15 2345 PRN Medications acetaminophen, albuterol, Hypoglycemia Management AND POCT Glucose AND dextrose, gu aiFENesin, nicotine, nicotine polacrilex, ondansetron, senna Allergy: Allergies Allergen Reactions Clindamycin Hcl Codeine Sulfate Hydrocodone Ibuprofen Lamotrigine Sulfa Antibiotics OBJECTIVE: Vitals: Patient Vitals for the past 24 hrs: BP Temp Temp src Pulse Resp SpO2 Height Weight 12/24/15 0500 140/79 mmHg 37.2 C (99 F) Oral 110 24 90 % - - 12/24/15 0359 - - - - 18 - - - 12/24/15 0140 - - - 102 24 94 % - - 12/23/15 2345 130/86 mmHg 36.6 C (97.9 F) Oral 110 22 93 % 1.575 m (5' 2") 68.2 kg (150 lb 5.7 oz) 12/23/15 2314 - - - 108 15 93 % - - 12/23/15 2245 121/67 mmHg - - 101 18 100 % - - 12/23/15 2145 120/69 mmHg - - 99 23 94 % - - 12/23/15 2130 116/72 mmHg - - 101 19 95 % - - 12/23/15 1837 - - - - 26 - - - 12/23/15 1830 134/76 mmHg - - 114 - 93 % - - 12/23/15 1745 134/77 mmHg - - 124 - 92 % - - 12/23/15 1729 122/78 mmHg - - 126 - 95 % - - 12/23/15 1700 129/82 mmHg - - 130 - 93 % - - 12/23/15 1650 - - - 125 28 93 % - - 12/23/15 1534 (!) 142/91 mmHg - - 122 - 95 % - - 12/23/15 1521 (!) 137/95 mmHg 37.2 C (98.9 F) Oral 122 28 (!) 85 % 1.575 m (5' 2") 68.0 4 kg (150 lb) I&O Detailed Table: Intake/Output Summary (Last 24 hours) at 12/24/15 0708 Last data filed at 12/24/15 0646 Gross per 24 hour Intake 352 ml Output 0 ml Net 352 ml Patient Vitals for the past 96 hrs: Weight 12/23/15 2345 68.2 kg (150 lb 5.7 oz) 12/23/15 1521 68.04 kg (150 lb) Hemodynamics Last 24hrs: Physical Examination: Constitutional: Alert and oriented to person, place, and time. Appears well-developed and w ell-nourished. HEENT: Neck supple, no JVD, non icteric sclera. Cardiovascular: Normal rate, regular rhythm, normal heart sounds with S1 and S2, and intact distal pulses. Exam reveals no gallop and no friction rub. No murmur heard. Pulmonary/Chest: Effort normal and breath sounds normal. No stridor. No respiratory distres s. She is wheezing bilateral. no rales. exhibits no tenderness. Abdominal: Soft. Bowel sounds are normal. exhibits no distension and no mass. There is no t enderness. There is no rebound and no guarding. Extremeties/Musculoskeletal: Normal range of motion.exhibits no tenderness. exhibits no ed ronald. Neurological: Alert and oriented to person, place, and time. Has normal reflexes. No cran ial nerve deficit. Exhibits normal muscle tone. Coordination normal. Skin: Skin is warm and dry. No rash noted. No erythema. No pallor. Psychiatric: Has a normal mood and affect. Behavior is normal. Judgment normal. LABS: Recent Labs Lab 12/24/15 0554 12/23/15 1535 WBC 15.4* 15.0* HGB 15.1 17.5* HCT 44.1 50.9* PLT 261 289 Recent Labs Lab 12/24/15 0554 12/23/15 1535 NA 143 137 K 3.7 4.5 CL 109 102 CO2 24 26 BUN 9 11 CALCIUM 9.0 9.4 BILITOT -- 1.9* ALKPHOS -- 78 ALT -- 16 AST -- 35 Phosphorus: Lab Results Component Value Date PHOS 4.0 12/06/2011 PROBLEM LIST Principal Problem: Acute respiratory failure with hypoxia Active Problems: BIPOLAR DISORDER UNSPECIFIED COPD with acute exacerbation Acute bronchitis Depression Essential hypertension ASSESSMENT & PLAN 55 years old female with past medical history of chronic COPD, essential hypertension, unsp ecified hyperlipidemia presented to the hospital with shortness of breath, wheezing and prod uctive cough and was in acute respiratory failure. Principal Problem: Acute respiratory failure with hypoxia with COPD, acute bronchitis She was hypoxic when she came to the hospital requiring oxygen. More likely the etiology of acute respiratory failure is acute COPD exacerbation on chronic COPD. She was started on Solu-Medrol. I'm going to switch to the prednisone. I agree with processing. I will add azithromycin my seen as well. White cell count is up probably related to the steroids. BIPOLAR DISORDER UNSPECIFIED with depression Continue with Lexapro Essential hypertension Blood pressure is appropriately controlled on atenolol Luis Barth MD, FACP 12/24/2015 7:25 Portions of this chart may have been created with [employer] voice recognition software. Occasi onal wrong-word or sound-alike substitutions may have occurred due to the inherent joseph itations of voice recognition software. Please read the chart carefully and recognize, using context, where these substitutions have occurred. documented in this encounter Plan of Treatment Not on filedocumented as of this encounter Procedures + +--------+ + + + | Procedure Name | Priori | Date/Time | Associated Diagnosis | Comments | | | ty | | | | + +--------+ + + + | POC GLUCOSE | Routin | 12/28/2015 | | Results for this | | | e | 6:49 AM | | procedure are in the | | | | PDT | | results section. | + +--------+ + + + | EXTRA GREEN TOP TUBE | Routin | 12/28/2015 | | Results for this | | | e | 6:11 AM | | procedure are in the | | | | PDT | | results section. | + +--------+ + + + | CBC WITH | Routin | 12/28/2015 | | Results for this | | DIFFERENTIAL | e | 6:11 AM | | procedure are in the | | | | PDT | | results section. | + +--------+ + + + | POC GLUCOSE | Routin | 12/27/2015 | | Results for this | | | e | 8:37 PM | | procedure are in the | | | | PDT | | results section. | + +--------+ + + + | POC GLUCOSE | Routin | 12/27/2015 | | Results for this | | | e | 6:41 PM | | procedure are in the | | | | PDT | | results section. | + +--------+ + + + | POC GLUCOSE | Routin | 12/27/2015 | | Results for this | | | e | 11:47 AM | | procedure are in the | | | | PDT | | results section. | + +--------+ + + + | POC GLUCOSE | Routin | 12/27/2015 | | Results for this | | | e | 6:24 AM | | procedure are in the | | | | PDT | | results section. | + +--------+ + + + | CBC WITH | Routin | 12/27/2015 | | Results for this | | DIFFERENTIAL | e | 5:16 AM | | procedure are in the | | | | PDT | | results section. | + +--------+ + + + | MAGNESIUM | Routin | 12/27/2015 | | Results for this | | | e | 5:16 AM | | procedure are in the | | | | PDT | | results section. | + +--------+ + + + | BASIC METABOLIC | Routin | 12/27/2015 | | Results for this | | PANEL | e | 5:16 AM | | procedure are in the | | | | PDT | | results section. | + +--------+ + + + | POC GLUCOSE | Routin | 12/26/2015 | | Results for this | | | e | 8:25 PM | | procedure are in the | | | | PDT | | results section. | + +--------+ + + + | POC GLUCOSE | Routin | 12/26/2015 | | Results for this | | | e | 5:22 PM | | procedure are in the | | | | PDT | | results section. | + +--------+ + + + | POC GLUCOSE | Routin | 12/26/2015 | | Results for this | | | e | 12:05 PM | | procedure are in the | | | | PDT | | results section. | + +--------+ + + + | POC GLUCOSE | Routin | 12/26/2015 | | Results for this | | | e | 6:51 AM | | procedure are in the | | | | PDT | | results section. | + +--------+ + + + | CBC WITH | Routin | 12/26/2015 | | Results for this | | DIFFERENTIAL | e | 5:48 AM | | procedure are in the | | | | PDT | | results section. | + +--------+ + + + | C-REACTIVE PROTEIN | Routin | 12/26/2015 | | Results for this | | | e | 5:48 AM | | procedure are in the | | | | PDT | | results section. | + +--------+ + + + | MAGNESIUM | Routin | 12/26/2015 | | Results for this | | | e | 5:48 AM | | procedure are in the | | | | PDT | | results section. | + +--------+ + + + | BASIC METABOLIC | Routin | 12/26/2015 | | Results for this | | PANEL | e | 5:48 AM | | procedure are in the | | | | PDT | | results section. | + +--------+ + + + | POC GLUCOSE | Routin | 12/25/2015 | | Results for this | | | e | 8:32 PM | | procedure are in the | | | | PDT | | results section. | + +--------+ + + + | POC GLUCOSE | Routin | 12/25/2015 | | Results for this | | | e | 6:10 PM | | procedure are in the | | | | PDT | | results section. | + +--------+ + + + | POC GLUCOSE | Routin | 12/25/2015 | | Results for this | | | e | 11:33 AM | | procedure are in the | | | | PDT | | results section. | + +--------+ + + + | POC GLUCOSE | Routin | 12/25/2015 | | Results for this | | | e | 6:26 AM | | procedure are in the | | | | PDT | | results section. | + +--------+ + + + | CBC WITH | Routin | 12/25/2015 | | Results for this | | DIFFERENTIAL | e | 5:03 AM | | procedure are in the | | | | PDT | | results section. | + +--------+ + + + | C-REACTIVE PROTEIN | Routin | 12/25/2015 | | Results for this | | | e | 5:03 AM | | procedure are in the | | | | PDT | | results section. | + +--------+ + + + | MAGNESIUM | Routin | 12/25/2015 | | Results for this | | | e | 5:03 AM | | procedure are in the | | | | PDT | | results section. | + +--------+ + + + | BASIC METABOLIC | Routin | 12/25/2015 | | Results for this | | PANEL | e | 5:03 AM | | procedure are in the | | | | PDT | | results section. | + +--------+ + + + | POC GLUCOSE | Routin | 12/24/2015 | | Results for this | | | e | 9:45 PM | | procedure are in the | | | | PDT | | results section. | + +--------+ + + + | POC GLUCOSE | Routin | 12/24/2015 | | Results for this | | | e | 5:21 PM | | procedure are in the | | | | PDT | | results section. | + +--------+ + + + | POC GLUCOSE | Routin | 12/24/2015 | | Results for this | | | e | 11:54 AM | | procedure are in the | | | | PDT | | results section. | + +--------+ + + + | POC GLUCOSE | Routin | 12/24/2015 | | Results for this | | | e | 6:44 AM | | procedure are in the | | | | PDT | | results section. | + +--------+ + + + | RESPIRATORY THERAPY | Routin | 12/24/2015 | | | | COMMUNICATION | e | 6:29 AM | | | | | | PDT | | | + +--------+ + + + | CBC WITH | Routin | 12/24/2015 | | Results for this | | DIFFERENTIAL | e | 5:54 AM | | procedure are in the | | | | PDT | | results section. | + +--------+ + + + | C-REACTIVE PROTEIN | Routin | 12/24/2015 | | Results for this | | | e | 5:54 AM | | procedure are in the | | | | PDT | | results section. | + +--------+ + + + | BASIC METABOLIC | Routin | 12/24/2015 | | Results for this | | PANEL | e | 5:54 AM | | procedure are in the | | | | PDT | | results section. | + +--------+ + + + | POC GLUCOSE | Routin | 12/23/2015 | | Results for this | | | e | 11:42 PM | | procedure are in the | | | | PDT | | results section. | + +--------+ + + + | CULTURE, BLOOD | STAT | 12/23/2015 | | Results for this | | | | 11:09 PM | | procedure are in the | | | | PDT | | results section. | + +--------+ + + + | CULTURE, BLOOD | STAT | 12/23/2015 | | Results for this | | | | 11:09 PM | | procedure are in the | | | | PDT | | results section. | + +--------+ + + + | CULTURE, | STAT | 12/23/2015 | | Results for this | | RESPIRATORY, LOWER, | | 11:05 PM | | procedure are in the | | SMEAR | | PDT | | results section. | + +--------+ + + + | RT SPUTUM INDUCTION | STAT | 12/23/2015 | | | | WITH HYPERTONIC | | 10:45 PM | | | | SALINE | | PDT | | | + +--------+ + + + | XR CHEST AP PORTABLE | STAT | 12/23/2015 | | Results for this | | | | 4:13 PM | | procedure are in the | | | | PDT | | results section. | + +--------+ + + + | CBC W/AUTO | STAT | 12/23/2015 | | Results for this | | DIFFERENTIAL | | 3:35 PM | | procedure are in the | | | | PDT | | results section. | + +--------+ + + + | TROPONIN I | STAT | 12/23/2015 | | Results for this | | | | 3:35 PM | | procedure are in the | | | | PDT | | results section. | + +--------+ + + + | C-REACTIVE PROTEIN | Add-On | 12/23/2015 | | Results for this | | | | 3:35 PM | | procedure are in the | | | | PDT | | results section. | + +--------+ + + + | B TYPE NATRIURETIC | STAT | 12/23/2015 | | Results for this | | PEPTIDE | | 3:35 PM | | procedure are in the | | | | PDT | | results section. | + +--------+ + + + | COMPREHENSIVE | STAT | 12/23/2015 | | Results for this | | METABOLIC PANEL | | 3:35 PM | | procedure are in the | | | | PDT | | results section. | + +--------+ + + + | ECG 12 LEAD | STAT | 12/23/2015 | | Results for this | | | | 3:23 PM | | procedure are in the | | | | PDT | | results section. | + +--------+ + + + documented in this encounter Results POC Glucose (12/28/2015 6:49 AM PDT) + +-------+ + + + | Component | Value | Ref Range | Performed | Pathologist | | | | | At | Signature | + +-------+ + + + | Glucose, | 80 | 70 - 150 mg/dL | [facility] | | | P[facility] | [facility] | | | | | [facility] | | | | | | [facility] - | | | | | | LABORATORY | | + +-------+ + + + + + | Specimen | + + | Blood | + + + + + + + | Performing | Address | City/State/Zipcode | Phone Number | | Organization | | | | + + + + + | [facility] | [address] | [place] | [phone] | | [facility] | | [address] | | | - LABORATORY | | | | + + + + + Extra Green Top Tube (12/28/2015 6:11 AM PDT) + +-------+ + + + | Component | Value | Ref Range | Performed | Pathologist | | | | | At | Signature | + +-------+ + + + | Extra Green | Done | | [facility] | | | Top Tube | | | [facility] | | | | | | MEDICAL | | | | | | CENTER - | | | | | | LABORATORY | | + +-------+ + + + + + | Specimen | + + | Blood | + + + + + + + | Performing | Address | City/State/Zipcode | Phone Number | | Organization | | | | + + + + + | [facility] | [address] | [place] | [phone] | | [facility] | | [address] | | | - LABORATORY | | | | + + + + + CBC with Differential (12/28/2015 6:11 AM PDT) + + + + + + | Component | Value | Ref Range | Performed | Pathologist | | | | | At | Signature | + + + + + + | WBC | 12.7 (H) | 4.0 - 11.0 K/uL | [facility] | | | | | | [facility] | | | | | | MEDICAL | | | | | | CENTER - | | | | | | LABORATORY | | + + + + + + | RBC | 4.58 | 3.70 - 5.20 | [facility] | | | | | M/uL | [facility] | | | | | | MEDICAL | | | | | | CENTER - | | | | | | LABORATORY | | + + + + + + | Hemoglobin | 13.6 | 11.5 - 16.0 | [facility] | | | | | g/dL | [facility] | | | | | | [facility]ICAL | | | | | | C[facility] - | | | | | | LABORATORY | | + + + + + + | Hematocrit | 40.9 | 34.0 - 47.0 % | [facility] | | | | | | [facility] | | | | | | [facility]ICAL | | | | | | C[facility] - | | | | | | LABORATORY | | + + + + + + | MCV | 89.3 | 83.0 - 101.0 fL | [facility] | | | | | | [facility] | | | | | | [facility] | | | | | | C[facility] - | | | | | | LABORATORY | | + + + + + + | MCH | 29.7 | 28.0 - 35.0 pg | [facility] | | | | | | [facility] | | | | | | [facility]ICAL | | | | | | C[facility] - | | | | | | LABORATORY | | + + + + + + | MCHC | 33.2 | 32.0 - 36.0 | [facility] | | | | | g/dL | [facility] | | | | | | MEDICAL | | | | | | CENTER - | | | | | | LABORATORY | | + + + + + + | RDW-CV | 14.1 | <15.0 % | [facility] | | | | | | [facility] | | | | | | [facility] | | | | | | CENTER - | | | | | | LABORATORY | | + + + + + + | Platelet | 261 | 140 - 440 K/uL | [facility] | | | Count | | | [facility] | | | | | | [facility]ICAL | | | | | | CENTER - | | | | | | LABORATORY | | + + + + + + | MPV | 8.8 | fL | [facility] | | | | | | [facility] | | | | | | [facility] | | | | | | CENTER - | | | | | | LABORATORY | | + + + + + + | % | 47.0 | 45.0 - 82.0 % | [facility] | | | Neutrophils | | | [facility] | | | | | | [facility]ICAL | | | | | | CENTER - | | | | | | LABORATORY | | + + + + + + | % | 44.0 | 20.0 - 45.0 % | [facility] | | | Lymphocytes | | | [facility] | | | | | | [facility] | | | | | | CENTER - | | | | | | LABORATORY | | + + + + + + | % Monocytes | 6.6 | 4.0 - 12.0 % | [facility] | | | | | | [facility] | | | | | | [facility] | | | | | | C[facility] - | | | | | | LABORATORY | | + + + + + + | % | 1.5 | 0.0 - 5.0 % | [facility] | | | Eosinophils | | | [facility] | | | | | | [facility] | | | | | | CENTER - | | | | | | LABORATORY | | + + + + + + | % Basophils | 0.9 | 0.0 - 1.0 % | [facility] | | | | | | [facility] | | | | | | [facility] | | | | | | C[facility] - | | | | | | LABORATORY | | + + + + + + | Absolute | 6.00 | 1.80 - 8.50 | [facility] | | | Neutrophils | | K/uL | [facility] | | | | | | [facility] | | | | | | CENTER - | | | | | | LABORATORY | | + + + + + + | Absolute | 5.60 (H) | 0.60 - 3.20 | [facility] | | | Lymphocytes | | K/uL | [facility] | | | | | | [facility] | | | | | | C[facility] - | | | | | | LABORATORY | | + + + + + + | Absolute | 0.80 | 0.00 - 1.00 | [facility] | | | Monocytes | | K/uL | [facility] | | | | | | [facility] | | | | | | CENTER - | | | | | | LABORATORY | | + + + + + + | Absolute | 0.20 | 0.00 - 0.40 | [facility] | | | Eosinophils | | K/uL | [facility] | | | | | | [facility] | | | | | | CENTER - | | | | | | LABORATORY | | + + + + + + | Absolute | 0.10 | 0.00 - 0.10 | [facility] | | | Basophils | | K/uL | [facility] | | | | | | [facility] | | | | | | C[facility] - | | | | | | LABORATORY | | + + + + + + + + | Specimen | + + | Blood | + + + + + + + | Performing | Address | City/State/Zipcode | Phone Number | | Organization | | | | + + + + + | [facility] | [address] | [place] | [phone] | | [facility] | | [address] | | | - LABORATORY | | | | + + + + + POC Glucose (12/27/2015 8:37 PM PDT) + +-------+ + + + | Component | Value | Ref Range | Performed | Pathologist | | | | | At | Signature | + +-------+ + + + | Glucose, | 96 | 70 - 150 mg/dL | [facility] | | | P[facility] | | | [facility] | | | | | [facility] | | | | | | CENTER - | | | | | | LABORATORY | | + +-------+ + + + + + | Specimen | + + | Blood | + + + + + + + | Performing | Address | City/State/Zipcode | Phone Number | | Organization | | | | + + + + + | [facility] | [address] | [place] | [phone] | | [facility] | | [address] | | | - LABORATORY | | | | + + + + + POC Glucose (12/27/2015 6:41 PM PDT) + +-------+ + + + | Component | Value | Ref Range | Performed | Pathologist | | | | | At | Signature | + +-------+ + + + | Glucose, | 137 | 70 - 150 mg/dL | [facility] | | [facility] | | | [facility] | | | | | | MEDICAL | | | | | | CENTER - | | | | | | LABORATORY | | + +-------+ + + + + + | Specimen | + + | Blood | + + + + + + + | Performing | Address | City/State/Zipcode | Phone Number | | Organization | | | | + + + + + | [facility] | [address] | [place] | [phone] | | [facility] | | [address] | | | - LABORATORY | | | | + + + + + POC Glucose (12/27/2015 11:47 AM PDT) + +-------+ + + + | Component | Value | Ref Range | Performed | Pathologist | | | | | At | Signature | + +-------+ + + + | Glucose, | 98 | 70 - 150 mg/dL | [facility] | | | POC | | | [facility] | | | | | | [facility] | | | | | | [facility] - | | | | | | LABORATORY | | + +-------+ + + + + + | Specimen | + + | Blood | + + + + + + + | Performing | Address | City/State/Zipcode | Phone Number | | Organization | | | | + + + + + | [facility] | [address] | [place] | [phone] | | [facility] | | [address] | | | - LABORATORY | | | | + + + + + POC Glucose (12/27/2015 6:24 AM PDT) + +-------+ + + + | Component | Value | Ref Range | Performed | Pathologist | | | | | At | Signature | + +-------+ + + + | Glucose, | 93 | 70 - 150 mg/dL | [facility] | | | POC | | | [facility] | | | | | | MEDICAL | | | | | | CENTER - | | | | | | LABORATORY | | + +-------+ + + + + + | Specimen | + + | Blood | + + + + + + + | Performing | Address | City/State/Zipcode | Phone Number | | Organization | | | | + + + + + | [facility] | [address] | [place] | [phone] | | [facility] | | [address] | | | - LABORATORY | | | | + + + + + Magnesium (12/27/2015 5:16 AM PDT) + +-------+ + + + | Component | Value | Ref Range | Performed | Pathologist | | | | | At | Signature | + +-------+ + + + | Magnesium | 2.1 | 1.8 - 2.5 mg/dL | [facility] | | | | | | [facility] | | | | | | MEDICAL | | | | | | CENTER - | | | | | | LABORATORY | | + +-------+ + + + + + | Specimen | + + | Blood | + + + + + + + | Performing | Address | City/State/Zipcode | Phone Number | | Organization | | | | + + + + + | [facility] | [address] | [place] | [phone] | | [facility] | | [address] | | | - LABORATORY | | | | + + + + + CBC with Differential (12/27/2015 5:16 AM PDT) + + + + + + | Component | Value | Ref Range | Performed | Pathologist | | | | | At | Signature | + + + + + + | WBC | 12.9 (H) | 4.0 - 11.0 K/uL | [facility] | | | | | | [facility] | | | | | | [facility]ICAL | | | | | | CENTER - | | | | | | LABORATORY | | + + + + + + | RBC | 4.86 | 3.70 - 5.20 | [facility] | | | | | M/uL | [facility] | | | | | | MEDICAL | | | | | | CENTER - | | | | | | LABORATORY | | + + + + + + | Hemoglobin | 15.0 | 11.5 - 16.0 | [facility] | | | | | g/dL | [facility] | | | | | | MEDICAL | | | | | | CENTER - | | | | | | LABORATORY | | + + + + + + | Hematocrit | 42.9 | 34.0 - 47.0 % | [facility] | | | | | | [facility] | | | | | | MEDICAL | | | | | | CENTER - | | | | | | LABORATORY | | + + + + + + | MCV | 88.4 | 83.0 - 101.0 fL | [facility] | | | | | | [facility] | | | | | | MEDICAL | | | | | | CENTER - | | | | | | LABORATORY | | + + + + + + | MCH | 30.8 | 28.0 - 35.0 pg | [facility] | | | | | | [facility] | | | | | | MEDICAL | | | | | | CENTER - | | | | | | LABORATORY | | + + + + + + | MCHC | 34.8 | 32.0 - 36.0 | [facility] | | | | | g/dL | [facility] | | | | | | MEDICAL | | | | | | CENTER - | | | | | | LABORATORY | | + + + + + + | RDW-CV | 14.1 | <15.0 % | [facility] | | | | | | [facility] | | | | | | MEDICAL | | | | | | CENTER - | | | | | | LABORATORY | | + + + + + + | Platelet | 276 | 140 - 440 K/uL | [facility] | | | Count | | | [facility] | | | | | | MEDICAL | | | | | | CENTER - | | | | | | LABORATORY | | + + + + + + | MPV | 8.6 | fL | [facility] | | | | | | [facility] | | | | | | MEDICAL | | | | | | CENTER - | | | | | | LABORATORY | | + + + + + + | % | 57.5 | 45.0 - 82.0 % | [facility] | | | Neutrophils | | | [facility] | | | | | | MEDICAL | | | | | | CENTER - | | | | | | LABORATORY | | + + + + + + | % | 33.4 | 20.0 - 45.0 % | [facility] | | | Lymphocytes | | | [facility] | | | | | | MEDICAL | | | | | | CENTER - | | | | | | LABORATORY | | + + + + + + | % Monocytes | 8.0 | 4.0 - 12.0 % | [facility] | | | | | | [facility] | | | | | | MEDICAL | | | | | | CENTER - | | | | | | LABORATORY | | + + + + + + | % | 0.5 | 0.0 - 5.0 % | [facility] | | | Eosinophils | | | [facility] | | | | | | MEDICAL | | | | | | CENTER - | | | | | | LABORATORY | | + + + + + + | % Basophils | 0.6 | 0.0 - 1.0 % | [facility] | | | | | | [facility] | | | | | | MEDICAL | | | | | | CENTER - | | | | | | LABORATORY | | + + + + + + | Absolute | 7.40 | 1.80 - 8.50 | [facility] | | | Neutrophils | | K/uL | [facility] | | | | | | [facility] | | | | | | CENTER - | | | | | | LABORATORY | | + + + + + + | Absolute | 4.30 (H) | 0.60 - 3.20 | [facility] | | | Lymphocytes | | K/uL | [facility] | | | | | | MEDICAL | | | | | | CENTER - | | | | | | LABORATORY | | + + + + + + | Absolute | 1.00 | 0.00 - 1.00 | [facility] | | | Monocytes | | K/uL | [facility] | | | | | | MEDICAL | | | | | | CENTER - | | | | | | LABORATORY | | + + + + + + | Absolute | 0.10 | 0.00 - 0.40 | [facility] | | | Eosinophils | | K/uL | [facility] | | | | | | MEDICAL | | | | | | CENTER - | | | | | | LABORATORY | | + + + + + + | Absolute | 0.10 | 0.00 - 0.10 | [facility] | | | Basophils | | K/uL | [facility] | | | | | | MEDICAL | | | | | | CENTER - | | | | | | LABORATORY | | + + + + + + + + | Specimen | + + | Blood | + + + + + + + | Performing | Address | City/State/Zipcode | Phone Number | | Organization | | | | + + + + + | [facility] | [address] | [place] | [phone] | | [facility] | | [address] | | | - LABORATORY | | | | + + + + + Basic Metabolic Panel (12/27/2015 5:16 AM PDT) + + + + + + | Component | Value | Ref Range | Performed | Pathologist | | | | | At | Signature | + + + + + + | Na | 144 | 136 - 149 | [facility] | | | | | mmol/L | [facility] | | | | | | MEDICAL | | | | | | CENTER - | | | | | | LABORATORY | | + + + + + + | K | 3.6 | 3.5 - 5.1 | [facility] | | | | | mmol/L | [facility] | | | | | | MEDICAL | | | | | | CENTER - | | | | | | LABORATORY | | + + + + + + | Cl | 107 | 98 - 109 mmol/L | [facility] | | | | | | [facility] | | | | | | MEDICAL | | | | | | CENTER - | | | | | | LABORATORY | | + + + + + + | CO2 | 30 | 24 - 31 mmol/L | [facility] | | | | | | [facility] | | | | | | MEDICAL | | | | | | CENTER - | | | | | | LABORATORY | | + + + + + + | Anion Gap | 7 | 3 - 16 mmol/L | [facility] | | | | | | [facility] | | | | | | MEDICAL | | | | | | CENTER - | | | | | | LABORATORY | | + + + + + + | Glucose | 93 | 70 - 109 mg/dL | [facility] | | | | | | [facility] | | | | | | MEDICAL | | | | | | CENTER - | | | | | | LABORATORY | | + + + + + + | BUN | 13 | 7 - 18 mg/dL | [facility] | | | | | | [facility] | | | | | | MEDICAL | | | | | | CENTER - | | | | | | LABORATORY | | + + + + + + | Creatinine | 0.82 | 0.60 - 1.30 | [facility] | | | | | mg/dL | [facility] | | | | | | MEDICAL | | | | | | CENTER - | | | | | | LABORATORY | | + + + + + + | eGFR if not | >60Comment: GLOMERULAR | >=60 | [place] | | | | FILTRATION | mL/min/1.73m2 | [facility] | | | [facility] | RATE,ESTIMATED | | MEDICAL | | | | mL/min/[id number] than | | CENTER - | | | | 60 Chronic kidney | | LABORATORY | | | | disease,if found over a | | | | | | 3-month period.Less than | | | | | | 15 Kidney failureFor | | | | | | | | | | | | Americans,multiply the | | | | | | calculated GFR by 1.21. | | | | | | | | | | + + + + + + | Calcium | 9.1 | 8.3 - 10.5 | [facility] | | | | | mg/dL | [facility] | | | | | | MEDICAL | | | | | | CENTER - | | | | | | LABORATORY | | + + + + + + | BUN/Creatin | 15.9 | | [facility] | | | ine Ratio | | | [facility] | | | | | | MEDICAL | | | | | | CENTER - | | | | | | LABORATORY | | + + + + + + + + | Specimen | + + | Blood | + + + + + + + | Performing | Address | City/State/Zipcode | Phone Number | | Organization | | | | + + + + + | [facility] | [address] | [place] | [phone] | | [facility] | | [address] | | | - LABORATORY | | | | + + + + + POC Glucose (12/26/2015 8:25 PM PDT) + +-------+ + + + | Component | Value | Ref Range | Performed | Pathologist | | | | | At | Signature | + +-------+ + + + | Glucose, | 97 | 70 - 150 mg/dL | [facility] | | | POC | | | [facility] | | | | | | MEDICAL | | | | | | CENTER - | | | | | | LABORATORY | | + +-------+ + + + + + | Specimen | + + | Blood | + + + + + + + | Performing | Address | City/State/Zipcode | Phone Number | | Organization | | | | + + + + + | [facility] | [address] | [place] | [phone] | | [facility] | | [address] | | | - LABORATORY | | | | + + + + + POC Glucose (12/26/2015 5:22 PM PDT) + +-------+ + + + | Component | Value | Ref Range | Performed | Pathologist | | | | | At | Signature | + +-------+ + + + | Glucose, | 101 | 70 - 150 mg/dL | [facility] | | | POC | | | [facility] | | | | | | MEDICAL | | | | | | CENTER - | | | | | | LABORATORY | | + +-------+ + + + + + | Specimen | + + | Blood | + + + + + + + | Performing | Address | City/State/Zipcode | Phone Number | | Organization | | | | + + + + + | [facility] | [address] | [place] | [phone] | | [facility] | | [address] | | | - LABORATORY | | | | + + + + + POC Glucose (12/26/2015 12:05 PM PDT) + +-------+ + + + | Component | Value | Ref Range | Performed | Pathologist | | | | | At | Signature | + +-------+ + + + | Glucose, | 100 | 70 - 150 mg/dL | [facility] | | | POC | | | [facility] | | | | | | MEDICAL | | | | | | CENTER - | | | | | | LABORATORY | | + +-------+ + + + + + | Specimen | + + | Blood | + + + + + + + | Performing | Address | City/State/Zipcode | Phone Number | | Organization | | | | + + + + + | [facility] | [address] | [place] | [phone] | | [facility] | | [address] | | | - LABORATORY | | | | + + + + + POC Glucose (12/26/2015 6:51 AM PDT) + +-------+ + + + | Component | Value | Ref Range | Performed | Pathologist | | | | | At | Signature | + +-------+ + + + | Glucose, | 83 | 70 - 150 mg/dL | [facility] | | | POC | | | [facility] | | | | | | MEDICAL | | | | | | CENTER - | | | | | | LABORATORY | | + +-------+ + + + + + | Specimen | + + | Blood | + + + + + + + | Performing | Address | City/State/Zipcode | Phone Number | | Organization | | | | + + + + + | [facility] | [address] | [place] | [phone] | | [facility] | | [address] | | | - LABORATORY | | | | + + + + + Magnesium (12/26/2015 5:48 AM PDT) + +-------+ + + + | Component | Value | Ref Range | Performed | Pathologist | | | | | At | Signature | + +-------+ + + + | Magnesium | 2.1 | 1.8 - 2.5 mg/dL | [facility] | | | | | | [facility] | | | | | | MEDICAL | | | | | | CENTER - | | | | | | LABORATORY | | + +-------+ + + + + + | Specimen | + + | Blood | + + + + + + + | Performing | Address | City/State/Zipcode | Phone Number | | Organization | | | | + + + + + | [facility] | [address] | [place] | [phone] | | [facility] | | [address] | | | - LABORATORY | | | | + + + + + CBC with Differential (12/26/2015 5:48 AM PDT) + + + + + + | Component | Value | Ref Range | Performed | Pathologist | | | | | At | Signature | + + + + + + | WBC | 11.8 (H) | 4.0 - 11.0 K/uL | [facility] | | | | | | [facility] | | | | | | MEDICAL | | | | | | CENTER - | | | | | | LABORATORY | | + + + + + + | RBC | 4.70 | 3.70 - 5.20 | [facility] | | | | | M/uL | [facility] | | | | | | MEDICAL | | | | | | CENTER - | | | | | | LABORATORY | | + + + + + + | Hemoglobin | 14.3 | 11.5 - 16.0 | [facility] | | | | | g/dL | [facility] | | | | | | MEDICAL | | | | | | CENTER - | | | | | | LABORATORY | | + + + + + + | Hematocrit | 41.5 | 34.0 - 47.0 % | [facility] | | | | | | [facility] | | | | | | MEDICAL | | | | | | CENTER - | | | | | | LABORATORY | | + + + + + + | MCV | 88.5 | 83.0 - 101.0 fL | [facility] | | | | | | [facility] | | | | | | MEDICAL | | | | | | CENTER - | | | | | | LABORATORY | | + + + + + + | MCH | 30.3 | 28.0 - 35.0 pg | [facility] | | | | | | [facility] | | | | | | MEDICAL | | | | | | CENTER - | | | | | | LABORATORY | | + + + + + + | MCHC | 34.3 | 32.0 - 36.0 | [facility] | | | | | g/dL | [facility] | | | | | | MEDICAL | | | | | | CENTER - | | | | | | LABORATORY | | + + + + + + | RDW-CV | 14.3 | <15.0 % | [facility] | | | | | | [facility] | | | | | | MEDICAL | | | | | | CENTER - | | | | | | LABORATORY | | + + + + + + | Platelet | 248 | 140 - 440 K/uL | [facility] | | | Count | | | [facility] | | | | | | MEDICAL | | | | | | CENTER - | | | | | | LABORATORY | | + + + + + + | MPV | 8.7 | fL | [facility] | | | | | | [facility] | | | | | | MEDICAL | | | | | | CENTER - | | | | | | LABORATORY | | + + + + + + | % | 58.0 | 45.0 - 82.0 % | [facility] | | | Neutrophils | | | [facility] | | | | | | MEDICAL | | | | | | CENTER - | | | | | | LABORATORY | | + + + + + + | % | 31.1 | 20.0 - 45.0 % | [facility] | | | Lymphocytes | | | [facility] | | | | | | MEDICAL | | | | | | CENTER - | | | | | | LABORATORY | | + + + + + + | % Monocytes | 9.8 | 4.0 - 12.0 % | [facility] | | | | | | [facility] | | | | | | MEDICAL | | | | | | CENTER - | | | | | | LABORATORY | | + + + + + + | % | 0.3 | 0.0 - 5.0 % | [facility] | | | Eosinophils | | | [facility] | | | | | | MEDICAL | | | | | | CENTER - | | | | | | LABORATORY | | + + + + + + | % Basophils | 0.8 | 0.0 - 1.0 % | [facility] | | | | | | [facility] | | | | | | MEDICAL | | | | | | CENTER - | | | | | | LABORATORY | | + + + + + + | Absolute | 6.90 | 1.80 - 8.50 | [facility] | | | Neutrophils | | K/uL | [facility] | | | | | | MEDICAL | | | | | | CENTER - | | | | | | LABORATORY | | + + + + + + | Absolute | 3.70 (H) | 0.60 - 3.20 | [facility] | | | Lymphocytes | | K/uL | [facility] | | | | | | MEDICAL | | | | | | CENTER - | | | | | | LABORATORY | | + + + + + + | Absolute | 1.20 (H) | 0.00 - 1.00 | [facility] | | | Monocytes | | K/uL | [facility] | | | | | | MEDICAL | | | | | | CENTER - | | | | | | LABORATORY | | + + + + + + | Absolute | 0.00 | 0.00 - 0.40 | [facility] | | | Eosinophils | | K/uL | [facility] | | | | | | MEDICAL | | | | | | CENTER - | | | | | | LABORATORY | | + + + + + + | Absolute | 0.10 | 0.00 - 0.10 | [facility] | | | Basophils | | K/uL | [facility] | | | | | | MEDICAL | | | | | | CENTER - | | | | | | LABORATORY | | + + + + + + + + | Specimen | + + | Blood | + + + + + + + | Performing | Address | City/State/Zipcode | Phone Number | | Organization | | | | + + + + + | [facility] | [address] | [place] | [phone] | | [facility] | | [address] | | | - LABORATORY | | | | + + + + + Basic Metabolic Panel (12/26/2015 5:48 AM PDT) + + + + + + | Component | Value | Ref Range | Performed | Pathologist | | | | | At | Signature | + + + + + + | Na | 143 | 136 - 149 | [facility] | | | | | mmol/L | [facility] | | | | | | MEDICAL | | | | | | CENTER - | | | | | | LABORATORY | | + + + + + + | K | 3.4 (L) | 3.5 - 5.1 | [facility] | | | | | mmol/L | [facility] | | | | | | MEDICAL | | | | | | CENTER - | | | | | | LABORATORY | | + + + + + + | Cl | 108 | 98 - 109 mmol/L | [facility] | | | | | | [facility] | | | | | | MEDICAL | | | | | | CENTER - | | | | | | LABORATORY | | + + + + + + | CO2 | 28 | 24 - 31 mmol/L | [facility] | | | | | | [facility] | | | | | | MEDICAL | | | | | | CENTER - | | | | | | LABORATORY | | + + + + + + | Anion Gap | 7 | 3 - 16 mmol/L | [facility] | | | | | | [facility] | | | | | | MEDICAL | | | | | | CENTER - | | | | | | LABORATORY | | + + + + + + | Glucose | 88 | 70 - 109 mg/dL | [facility] | | | | | | [facility] | | | | | | MEDICAL | | | | | | CENTER - | | | | | | LABORATORY | | + + + + + + | BUN | 13 | 7 - 18 mg/dL | [facility] | | | | | | [facility] | | | | | | MEDICAL | | | | | | CENTER - | | | | | | LABORATORY | | + + + + + + | Creatinine | 0.76 | 0.60 - 1.30 | [place] [facility] | | | | | mg/dL | [facility] | | | | | | MEDICAL | | | | | | CENTER - | | | | | | LABORATORY | | + + + + + + | eGFR if not | >60Comment: GLOMERULAR | >=60 | [place] | | | | FILTRATION | mL/min/1.73m2 | [facility] | | | [place] | RATE,ESTIMATED | | MEDICAL | | | | mL/min/1.25l6Omzx than | | CENTER - | | | | 60 Chronic kidney | | LABORATORY | | | | disease,if found over a | | | | | | 3-month period.Less than | | | | | | 15 Kidney failureFor | | | | | | | | | | | | Americans,multiply the | | | | | | calculated GFR by 1.21. | | | | | | | | | | + + + + + + | Calcium | 9.1 | 8.3 - 10.5 | [facility] | | | | | mg/dL | [facility] | | | | | | MEDICAL | | | | | | CENTER - | | | | | | LABORATORY | | + + + + + + | BUN/Creatin | 17.1 | | [facility] | | | ine Ratio | | | [facility] | | | | | | MEDICAL | | | | | | CENTER - | | | | | | LABORATORY | | + + + + + + + + | Specimen | + + | Blood | + + + + + + + | Performing | Address | City/State/Zipcode | Phone Number | | Organization | | | | + + + + + | [facility] | [address] | [place] | [phone] | | [facility] | | [address] | | | - LABORATORY | | | | + + + + + C-Reactive Protein (12/26/2015 5:48 AM PDT) + +-------+ + + + | Component | Value | Ref Range | Performed | Pathologist | | | | | At | Signature | + +-------+ + + + | CRP | 7.62 | <8.00 mg/L | [facility] | | | | | | [facility] | | | | | | [facility] | | | | | | [facility] - | | | | | | LABORATORY | | + +-------+ + + + + + | Specimen | + + | Blood | + + + + + + + | Performing | Address | City/State/Zipcode | Phone Number | | Organization | | | | + + + + + | [facility] | [address] | [place] | [phone] | | [facility] | | [address] | | | - LABORATORY | | | | + + + + + POC Glucose (12/25/2015 8:32 PM PDT) + +-------+ + + + | Component | Value | Ref Range | Performed | Pathologist | | | | | At | Signature | + +-------+ + + + | Glucose, | 95 | 70 - 150 mg/dL | [facility] | | | POC | | | [facility] | | | | | | MEDICAL | | | | | | CENTER - | | | | | | LABORATORY | | + +-------+ + + + + + | Specimen | + + | Blood | + + + + + + + | Performing | Address | City/State/Zipcode | Phone Number | | Organization | | | | + + + + + | [facility] | [address] | [place] | [phone] | | [facility] | | [address] | | | - LABORATORY | | | | + + + + + POC Glucose (12/25/2015 6:10 PM PDT) + +-------+ + + + | Component | Value | Ref Range | Performed | Pathologist | | | | | At | Signature | + +-------+ + + + | Glucose, | 118 | 70 - 150 mg/dL | [facility] | | | POC | | | [facility] | | | | | | MEDICAL | | | | | | CENTER - | | | | | | LABORATORY | | + +-------+ + + + + + | Specimen | + + | Blood | + + + + + + + | Performing | Address | City/State/Zipcode | Phone Number | | Organization | | | | + + + + + | [facility] | [address] | [place] | [phone] | | [facility] | | [address] | | | - LABORATORY | | | | + + + + + POC Glucose (12/25/2015 11:33 AM PDT) + +-------+ + + + | Component | Value | Ref Range | Performed | Pathologist | | | | | At | Signature | + +-------+ + + + | Glucose, | 88 | 70 - 150 mg/dL | [facility] | | | POC | | | [facility] | | | | | | MEDICAL | | | | | | CENTER - | | | | | | LABORATORY | | + +-------+ + + + + + | Specimen | + + | Blood | + + + + + + + | Performing | Address | City/State/Zipcode | Phone Number | | Organization | | | | + + + + + | [facility] | [address] | [place] | [phone] | | [facility] | | [address] | | | - LABORATORY | | | | + + + + + POC Glucose (12/25/2015 6:26 AM PDT) + +-------+ + + + | Component | Value | Ref Range | Performed | Pathologist | | | | | At | Signature | + +-------+ + + + | Glucose, | 88 | 70 - 150 mg/dL | [facility] | | | POC | | | [facility] | | | | | | [facility] | | | | | | CENTER - | | | | | | LABORATORY | | + +-------+ + + + + + | Specimen | + + | Blood | + + + + + + + | Performing | Address | City/State/Zipcode | Phone Number | | Organization | | | | + + + + + | [facility] | [address] | [place] | [phone] | | [facility] | | [address] | | | - LABORATORY | | | | + + + + + Magnesium (12/25/2015 5:03 AM PDT) + +-------+ + + + | Component | Value | Ref Range | Performed | Pathologist | | | | | At | Signature | + +-------+ + + + | Magnesium | 2.3 | 1.8 - 2.5 mg/dL | [facility] | | | | | | [facility] | | | | | | MEDICAL | | | | | | CENTER - | | | | | | LABORATORY | | + +-------+ + + + + + | Specimen | + + | Blood | + + + + + + + | Performing | Address | City/State/Zipcode | Phone Number | | Organization | | | | + + + + + | [facility] | [address] | [place] | [phone] | | [facility] | | [address] | | | - LABORATORY | | | | + + + + + CBC with Differential (12/25/2015 5:03 AM PDT) + + + + + + | Component | Value | Ref Range | Performed | Pathologist | | | | | At | Signature | + + + + + + | WBC | 19.1 (H) | 4.0 - 11.0 K/uL | [facility] | | | | | [facility] | | | | | | [facility] | | | [facility] - | | | | | | LAB[facility]ATORY | | + + + + + + | RBC | 4.65 | 3.70 - 5.20 | [facility] | | | | | M/uL | [facility] | | | | | | [facility] | | | | | | [facility] - | | | | | | LABORATORY | | + + + + + + | Hemoglobin | 14.1 | 11.5 - 16.0 | [facility] | | | | | g/dL | [facility] | | | | | | [facility] | | | | | | [facility] - | | | | | | LABORATORY | | + + + + + + | Hematocrit | 40.7 | 34.0 - 47.0 % | [facility] | | | | | | [facility] | | | | | | [facility] | | | | [facility] - | | | | | | LABORATORY | | + + + + + + | MCV | 87.6 | 83.0 - 101.0 fL | [facility] | | | | | | [facility] | | | | | | [facility] | | | | | [facility] - | | | | | | LABORATORY | | + + + + + + | MCH | 30.3 | 28.0 - 35.0 pg | [facility] | | | | | | [facility] | | | | | | [facility] | | | | | | [facility] - | | | | | | LABORATORY | | + + + + + + | MCHC | 34.5 | 32.0 - 36.0 | [facility] | | | | | g/dL | [facility] | | | | | | [facility] | | | | | | [facility] - | | | | | | LABORATORY | | + + + + + + | RDW-CV | 14.3 | <15.0 % | [facility] | | | | | | [facility] | | | | | | [facility] | | | | | | [facility] - | | | | | | LABORATORY | | + + + + + + | Platelet | 256 | 140 - 440 K/uL | [facility] | | | Count | | | [facility] | | | | | | [facility] | | | | | | [facility] - | | | | | | LABORATORY | | + + + + + + | MPV | 8.7 | fL | [facility] | | | | | | [facility] | | | | | | [facility] | | | | | | [facility] - | | | | | | LABORATORY | | + + + + + + | % | 71.9 | 45.0 - 82.0 % | [facility] | | | Neutrophils | | | [facility] | | | | | | [facility] | | | | | | [facility] - | | | | | | LABORATORY | | + + + + + + | % | 18.7 (L) | 20.0 - 45.0 % | [facility] | | | Lymphocytes | | | [facility] | | | | | | [facility] | | | | | | [facility] - | | | | | | LABORATORY | | + + + + + + | % Monocytes | 8.9 | 4.0 - 12.0 % | [facility] | | | | | | [facility] | | | | | | [facility] | | | | | | [facility] - | | | | | | LABORATORY | | + + + + + + | % | 0.1 | 0.0 - 5.0 % | [facility] | | | Eosinophils | | | [facility] | | | | | | [facility] | | | | | | [facility] - | | | | | | LABORATORY | | + + + + + + | % Basophils | 0.4 | 0.0 - 1.0 % | [facility] | | | | | | [facility] | | | | | | [facility] | | | | | | [facility] - | | | | | | LABORATORY | | + + + + + + | Absolute | 13.70 (H) | 1.80 - 8.50 | [facility] | | | Neutrophils | | K/uL | [facility] | | | | | | [facility] | | | | | | [facility]ENTER - | | | | | | LABORATORY | | + + + + + + | Absolute | 3.60 (H) | 0.60 - 3.20 | [facility] | | | Lymphocytes | | K/uL | [facility] | | | | | | [facility] | | | | | | [facility] - | | | | | | LABORATORY | | + + + + + + | Absolute | 1.70 (H) | 0.00 - 1.00 | [facility] | | | Monocytes | | K/uL | [facility] | | | | | | [facility] | | | | | | [facility] - | | | | | | LABORATORY | | + + + + + + | Absolute | 0.00 | 0.00 - 0.40 | [facility] | | | Eosinophils | | K/uL | [facility] | | | | | | [facility] | | | | | | [facility] - | | | | | | LABORATORY | | + + + + + + | Absolute | 0.10 | 0.00 - 0.10 | [facility] | | | Basophils | | K/uL | [facility] | | | | | | [facility] | | | | | | [facility] - | | | | | | LABORATORY | | + + + + + + + + | Specimen | + + | Blood | + + + + + + + | Performing | Address | City/State/Zipcode | Phone Number | | Organization | | | | + + + + + | [facility] | [address] | [place] | [phone] | | [facility] | | [address] | | | - LABORATORY | | | | + + + + + Basic Metabolic Panel (12/25/2015 5:03 AM PDT) + + + + + + | Component | Value | Ref Range | Performed | Pathologist | | | | | At | Signature | + + + + + + | Na | 143 | 136 - 149 | [facility] | | | | | mmol/L | [facility] | | | | | | [facility] | | | | | | [facility]ENTER - | | | | | | LABORATORY | | + + + + + + | K | 3.4 (L) | 3.5 - 5.1 | [facility] | | | | | mmol/L | [facility] | | | | | | [facility] | | | | | | CENTER - | | | | | | LABORATORY | | + + + + + + | Cl | 111 (H) | 98 - 109 mmol/L | [facility] | [facility] | | [facility] - | | | | | | LAB[facility]ATORY | | + + + + + + | CO2 | 26 | 24 - 31 mmol/L | [facility] | [facility] | [facility] | [facility] - | | | | | | LABORATORY | | + + + + + + | Anion Gap | 6 | 3 - 16 mmol/L | [facility] | | | | | | [facility] | | | | [facility] - | | | | | | LABORATORY | | + + + + + + | Glucose | 88 | 70 - 109 mg/dL | [facility] | | | | | | [facility] | | | | [facility] - | | | | | | LABORATORY | | + + + + + + | BUN | 13 | 7 - 18 mg/dL | [facility] | [facility] | [facility] | | | | | | [facility] | | | | [facility] - | | | | | | LABORATORY | | + + + + + + | Creatinine | 0.72 | 0.60 - 1.30 | [facility] | | | | | mg/dL | [facility] | | | | | | [facility] | | | | | | [facility] - | | | | | | LABORATORY | | + + + + + + | eGFR if not | >60Comment: GLOMERULAR | >=60 | [facility] | | | | FILTRATION | mL/min/1.73m2 | [facility] | | | [place] | RATE,ESTIMATED | | MEDICAL | | | | mL/min/1.20j5Bvio than | | CENTER - | | | | 60 Chronic kidney | | LABORATORY | | | | disease,if found over a | | | | | | 3-month period.Less than | | | | | | 15 Kidney failureFor | | | | | | | | | | | | Americans,multiply the | | | | | | calculated GFR by 1.21. | | | | | | | | | | + + + + + + | Calcium | 8.8 | 8.3 - 10.5 | [facility] | | | | | mg/dL | [facility] | | | | | | [facility] | | | | | | [facility] - | | | | | | LABORATORY | | + + + + + + | BUN/Creatin | 18.1 | | [facility] | | | ine Ratio | | [facility] | | [facility] | [facility] | | | | | | [facility] - | | | | | | LABORATORY | | + + + + + + + + | Specimen | + + | Blood | + + + + + + + | Performing | Address | City/State/Zipcode | Phone Number | | Organization | | | | + + + + + | [facility] | [address] | [place] | [phone] | | [facility] | | [address] | | | - LABORATORY | | | | + + + + + C-Reactive Protein (12/25/2015 5:03 AM PDT) + + + + + + | Component | Value | Ref Range | Performed | Pathologist | | | | | At | Signature | + + + + + + | CRP | 11.04 (H) | <8.00 mg/L | [facility] | | | | | | [facility] | | | | | | [facility] | | | | | | CENTER - | | | | | | LABORATORY | | + + + + + + + + | Specimen | + + | Blood | + + + + + + + | Performing | Address | City/State/Zipcode | Phone Number | | Organization | | | | + + + + + | [facility] | [address] | [place] | [phone] | | [facility] | | [address] | | | - LABORATORY | | | | + + + + + POC Glucose (12/24/2015 9:45 PM PDT) + +-------+ + + + | Component | Value | Ref Range | Performed | Pathologist | | | | | At | Signature | + +-------+ + + + | Glucose, | 105 | 70 - 150 mg/dL | [facility] | | | POC | | | [facility] | | | | | | [facility] | | | | | | CENTER - | | | | | | LABORATORY | | + +-------+ + + + + + | Specimen | + + | Blood | + + + + + + + | Performing | Address | City/State/Zipcode | Phone Number | | Organization | | | | + + + + + | [facility] | [address] | [place] | [phone] | | [facility] | | [address] | | | - LABORATORY | | | | + + + + + POC Glucose (12/24/2015 5:21 PM PDT) + +-------+ + + + | Component | Value | Ref Range | Performed | Pathologist | | | | | At | Signature | + +-------+ + + + | Glucose, | 120 | 70 - 150 mg/dL | [facility] | | | POC | | | [facility] | | | | | | [facility] | | | | | | CENTER - | | | | | | LABORATORY | | + +-------+ + + + + + | Specimen | + + | Blood | + + + + + + + | Performing | Address | City/State/Zipcode | Phone Number | | Organization | | | | + + + + + | [facility] | [address] | [place] | [phone] | | [facility] | | [address] | | | - LABORATORY | | | | + + + + + POC Glucose (12/24/2015 11:54 AM PDT) + +-------+ + + + | Component | Value | Ref Range | Performed | Pathologist | | | | | At | Signature | + +-------+ + + + | Glucose, | 106 | 70 - 150 mg/dL | [facility] | | | POC | | | [facility] | | | | | | [facility] | | | | | | CENTER - | | | | | | LABORATORY | | + +-------+ + + + + + | Specimen | + + | Blood | + + + + + + + | Performing | Address | City/State/Zipcode | Phone Number | | Organization | | | | + + + + + | [facility] | [address] | [place] | [phone] | | [facility] | | [address] | | | - LABORATORY | | | | + + + + + POC Glucose (12/24/2015 6:44 AM PDT) + +-------+ + + + | Component | Value | Ref Range | Performed | Pathologist | | | | | At | Signature | + +-------+ + + + | Glucose, | 111 | 70 - 150 mg/dL | [facility] | | | POC | | | [facility] | | | | | | [facility] | | | | | | CENTER - | | | | | | LABORATORY | | + +-------+ + + + + + | Specimen | + + | Blood | + + + + + + + | Performing | Address | City/State/Zipcode | Phone Number | | Organization | | | | + + + + + | [facility] | [address] | [place] | [phone] | | [facility] | | [address] | | | - LABORATORY | | | | + + + + + C-Reactive Protein (12/24/2015 5:54 AM PDT) + + + + + + | Component | Value | Ref Range | Performed | Pathologist | | | | | At | Signature | + + + + + + | CRP | 35.06 (H) | <8.00 mg/L | [facility] | | [facility] | | | [facility] | | | | | | [facility] | | | | | | CENTER - | | | | | | LABORATORY | | + + + + + + + + | Specimen | + + | Blood | + + + + + + + | Performing | Address | City/State/Zipcode | Phone Number | | Organization | | | | + + + + + | [facility] | [address] | [place] | [phone] | | [facility] | | [address] | | | - LABORATORY | | | | + + + + + CBC with Differential (12/24/2015 5:54 AM PDT) + + + + + + | Component | Value | Ref Range | Performed | Pathologist | | | | | At | Signature | + + + + + + | WBC | 15.4 (H) | 4.0 - 11.0 K/uL | [facility] | | | | | | [facility] | | | | | | [facility] | | | | | | CENTER - | | | | | | LABORATORY | | + + + + + + | RBC | 5.01 | 3.70 - 5.20 | [facility] | | | | | M/uL | [facility] | | | | | | [facility]ICAL | | | | | | CENTER - | | | | | | LABORATORY | | + + + + + + | Hemoglobin | 15.1 | 11.5 - 16.0 | [facility] | | | | | g/dL | [facility] | | | | | | [facility] | | | | | | CENTER - | | | | | | LABORATORY | | + + + + + + | Hematocrit | 44.1 | 34.0 - 47.0 % | [facility] | | | | | | [facility] | | | | | | [facility] | | | | | | CENTER - | | | | | | LABORATORY | | + + + + + + | MCV | 88.1 | 83.0 - 101.0 fL | [facility] | | | | | | [facility] | | | | | | [facility] | | | | | | CENTER - | | | | | | LABORATORY | | + + + + + + | MCH | 30.0 | 28.0 - 35.0 pg | [facility] | | | | | | [facility] | | | | | | [facility] | | | | | | CENTER - | | | | | | LABORATORY | | + + + + + + | MCHC | 34.1 | 32.0 - 36.0 | [facility] | | | | | g/dL | [facility] | | | | | | [facility] | | | | | | CENTER - | | | | | | LABORATORY | | + + + + + + | RDW-CV | 14.2 | <15.0 % | [facility] | | | | | | [facility] | | | | | | [facility] | | | | | | CENTER - | | | | | | LABORATORY | | + + + + + + | Platelet | 261 | 140 - 440 K/uL | [facility] | | | Count | | | [facility] | | | | | | [facility] | | | | | | CENTER - | | | | | | LABORATORY | | + + + + + + | MPV | 8.9 | fL | [facility] | | | | | | [facility] | | | | | | [facility] | | | | | | CENTER - | | | | | | LABORATORY | | + + + + + + | % | 85.8 (H) | 45.0 - 82.0 % | [facility] | | | Neutrophils | | | [facility] | | | | | | [facility] | | | | | | CENTER - | | | | | | LABORATORY | | + + + + + + | % | 8.3 (L) | 20.0 - 45.0 % | [facility] | | | Lymphocytes | | | [facility] | | | | | | [facility] | | | | | | CENTER - | | | | | | LABORATORY | | + + + + + + | % Monocytes | 5.8 | 4.0 - 12.0 % | [facility] | | | | | | [facility] | | | | | | [facility] | | | | | | CENTER - | | | | | | LABORATORY | | + + + + + + | % | 0.0 | 0.0 - 5.0 % | [facility] | | | Eosinophils | | | [facility] | | | | | | MEDICAL | | | | | | CENTER - | | | | | | LABORATORY | | + + + + + + | % Basophils | 0.1 | 0.0 - 1.0 % | [facility] | | | | | | [facility] | | | | | | [facility] | | | | | | CENTER - | | | | | | LABORATORY | | + + + + + + | Absolute | 13.20 (H) | 1.80 - 8.50 | [facility] | | | Neutrophils | | K/uL | [facility] | | | | | | [facility] | | | | | | CENTER - | | | | | | LABORATORY | | + + + + + + | Absolute | 1.30 | 0.60 - 3.20 | [facility] | | | Lymphocytes | | K/uL | [facility] | | | | | | [facility]ICAL | | | | | | CENTER - | | | | | | LABORATORY | | + + + + + + | Absolute | 0.90 | 0.00 - 1.00 | [facility] | | | Monocytes | | K/uL | [facility] | | | | | | MEDICAL | | | | | | CENTER - | | | | | | LABORATORY | | + + + + + + | Absolute | 0.00 | 0.00 - 0.40 | [facility] | | | Eosinophils | | K/uL | [facility] | | | | | | MEDICAL | | | | | | CENTER - | | | | | | LABORATORY | | + + + + + + | Absolute | 0.00 | 0.00 - 0.10 | [facility] | | | Basophils | | K/uL | [facility] | | | | | | [facility]ICAL | | | | | | CENTER - | | | | | | LABORATORY | | + + + + + + + + | Specimen | + + | Blood | + + + + + + + | Performing | Address | City/State/Zipcode | Phone Number | | Organization | | | | + + + + + | [facility] | [address] | [place] | [phone] | | [facility] | | [address] | | | - LABORATORY | | | | + + + + + Basic Metabolic Panel (12/24/2015 5:54 AM PDT) + + + + + + | Component | Value | Ref Range | Performed | Pathologist | | | | | At | Signature | + + + + + + | Na | 143 | 136 - 149 | [facility] | | | | | mmol/L | [facility] | | | | | | [facility]ICAL | | | | | | CENTER - | | | | | | LABORATORY | | + + + + + + | K | 3.7 | 3.5 - 5.1 | [facility] | | | | | mmol/L | [facility] | | | | | | [facility] | | | | | | CENTER - | | | | | | LABORATORY | | + + + + + + | Cl | 109 | 98 - 109 mmol/L | [facility] | | | | | | [facility] | | | | | | [facility] | | | | | | CENTER - | | | | | | LABORATORY | | + + + + + + | CO2 | 24 | 24 - 31 mmol/L | [facility] | | | | | | [facility] | | | | | | [facility] | | | | | | CENTER - | | | | | | LABORATORY | | + + + + + + | Anion Gap | 10 | 3 - 16 mmol/L | [facility] | | | | | | [facility] | | | | | | [facility] | | | | | | CENTER - | | | | | | LABORATORY | | + + + + + + | Glucose | 121 (H) | 70 - 109 mg/dL | [facility] | | | | | | [facility] | | | | | | [facility] | | | | | | CENTER - | | | | | | LABORATORY | | + + + + + + | BUN | 9 | 7 - 18 mg/dL | [facility] | | | | | | [facility] | | | | | | [facility] | | | | | | CENTER - | | | | | | LABORATORY | | + + + + + + | Creatinine | 0.82 | 0.60 - 1.30 | [facility] | | | | | mg/dL | [facility] | | | | | | [facility] | | | | | | CENTER - | | | | | | LABORATORY | | + + + + + + | eGFR if not | >60Comment: GLOMERULAR | >=60 | [facility] | | | | FILTRATION | mL/min/1.73m2 | [facility] | | | [place] | RATE,ESTIMATED | | MEDICAL | | | | mL/min/1.55w7Dhbm than | | CENTER - | | | | 60 Chronic kidney | | LABORATORY | | | | disease,if found over a | | | | | | 3-month period.Less than | | | | | | 15 Kidney failureFor | | | | | | | | | | | | Americans,multiply the | | | | | | calculated GFR by 1.21. | | | | | | | | | | + + + + + + | Calcium | 9.0 | 8.3 - 10.5 | [facility] | | | | | mg/dL | [facility] | | | | | | MEDICAL | | | | | | CENTER - | | | | | | LABORATORY | | + + + + + + | BUN/Creatin | 11.0 | | [facility] | | | ine Ratio | | | [facility] | | | | | | [facility]ICAL | | | | | | CENTER - | | | | | | LABORATORY | | + + + + + + + + | Specimen | + + | Blood | + + + + + + + | Performing | Address | City/State/Zipcode | Phone Number | | Organization | | | | + + + + + | [facility] | [address] | [place] | [phone] | | [facility] | | [address] | | | - LABORATORY | | | | + + + + + POC Glucose (12/23/2015 11:42 PM PDT) + +-------+ + + + | Component | Value | Ref Range | Performed | Pathologist | | | | | At | Signature | + +-------+ + + + | Glucose, | 139 | 70 - 150 mg/dL | [facility] | | | POC | | | [facility] | | | | | | [facility]ICAL | | | | | | CENTER - | | | | | | LABORATORY | | + +-------+ + + + + + | Specimen | + + | Blood | + + + + + + + | Performing | Address | City/State/Zipcode | Phone Number | | Organization | | | | + + + + + | [facility] | [address] | [place] | [phone] | | [facility] | | [address] | | | - LABORATORY | | | | + + + + + Culture, Blood (12/23/2015 11:09 PM PDT) + + + + + + | Component | Value | Ref Range | Performed | Pathologist | | | | | At | Signature | + + + + + + | Culture | No Growth | | [facility] | | | | | | [facility] | | | | | | MEDICAL | | | | | | CENTER - | | | | | | LABORATORY | | + + + + + + + + | Specimen | + + | Blood - Peripheral | | blood specimen | | (specimen) | + + + + + + + | Performing | Address | City/State/Zipcode | Phone Number | | Organization | | | | + + + + + | [facility] | [address] | [place] | [phone] | | [facility] | | [address] | | | - LABORATORY | | | | + + + + + Culture, Blood (12/23/2015 11:09 PM PDT) + + + + + + | Component | Value | Ref Range | Performed | Pathologist | | | | | At | Signature | + + + + + + | Culture | No Growth | | [facility] | | | | | | [facility] | | | | | | [facility] | | | | | | CENTER - | | | | | | LABORATORY | | + + + + + + + + | Specimen | + + | Blood - Peripheral | | blood specimen | | (specimen) | + + + + + + + | Performing | Address | City/State/Zipcode | Phone Number | | Organization | | | | + + + + + | [facility] | [address] | [place] | [phone] | | [facility] | | [address] | | | - LABORATORY | | | | + + + + + Culture, Respiratory, Lower, Smear (12/23/2015 11:05 PM PDT) + + + + + + | Component | Value | Ref Range | Performed | Pathologist | | | | | At | Signature | + + + + + + | Culture | No pathogens isolated | | [facility] | | | | | [facility] | | | | | | [facility] | | | | | | CENTER - | | | | | | LABORATORY | | + + + + + + | Culture | 3+ Usual Respiratory | | [facility] | | | | [facility] | | [facility] | | | | | | MEDICAL | | | | | | CENTER - | | | | | | LABORATORY | | + + + + + + | Gram Stain | 3+ White Blood Cells | | [facility] | | | Result | | | [facility] | | | | | | MEDICAL | | | | | | CENTER - | | | | | | LABORATORY | | + + + + + + | Gram Stain | 2+ Epithelial cells | | [facility] | | | Result | | | [facility] | | | | | | MEDICAL | | | | | | CENTER - | | | | | | LABORATORY | | + + + + + + | Gram Stain | 3+ Gram positive cocci | | [facility] | | | Result | | | [facility] | | | | | | MEDICAL | | | | | | CENTER - | | | | | | LABORATORY | | + + + + + + | Gram Stain | 2+ Gram positive bacilli | | [facility] | | | Result | | | [facility] | | | | | | MEDICAL | | | | | | CENTER - | | | | | | LABORATORY | | + + + + + + | Gram Stain | 2+ Gram negative rods | | [facility] | | | Result | | | [facility] | | | | | | MEDICAL | | | | | | CENTER - | | | | | | LABORATORY | | + + + + + + + + | Specimen | + + | Respiratory - | | Coughed sputum | | specimen (specimen) | + + + + + + + | Performing | Address | City/State/Zipcode | Phone Number | | Organization | | | | + + + + + | [facility] | [address] | [place] | [phone] | | [facility] | | [address] | | | - LABORATORY | | | | + + + + + XR Chest AP Portable (12/23/2015 4:13 PM PDT) + + | Specimen | + + | | + + + + + | Narrative | Performed At | + + + | EXAM: XR CHEST AP PORTABLE HISTORY: SOB TECHNIQUE: | [facility] | | Frontal view of the chest COMPARISON: 07/09/2008. FINDINGS: | | | Heart is normal size. Mediastinal and hilar contours are | | | within normal limits. Mild pulmonary hyperinflation may reflect | | | COPD. Lungs are otherwise clear. No pleural effusion. No | | | pneumothorax. No acute osseous abnormality. IMPRESSION - 1. | | | No acute cardiopulmonary abnormality. 2. Mild pulmonary | | | hyperinflation may reflect COPD. CRITICAL VALUE: No. Dictated | | | and Signed by: Breezy Allen MD Electronically signed: 12/23/2015 | | | 4:20 PM | | + + + + + | Procedure Note | + + | Jhoan, Rad Results In - 12/23/2015 4:23 PM PDT EXAM: XR CHEST AP PORTABLE | | | | HISTORY: SOB | | | | TECHNIQUE: Frontal view of the chest | | | | COMPARISON: 07/09/2008. | | | | FINDINGS: | | | | Heart is normal size. | | Mediastinal and hilar contours are within normal limits. | | Mild pulmonary hyperinflation may reflect COPD. Lungs are otherwise clear. No | | pleural effusion. No pneumothorax. | | No acute osseous abnormality. | | | | IMPRESSION - | | 1. No acute cardiopulmonary abnormality. | | 2. Mild pulmonary hyperinflation may reflect COPD. | | | | CRITICAL VALUE: No. | | | | Dictated and Signed by: Breezy Allen MD | | Electronically signed: 12/23/2015 4:20 PM | + + + +---------+ + + | Performing | Address | City/State/Zipcode | Phone Number | | Organization | | | | + +---------+ + + | [facility] | | | | + +---------+ + + C-Reactive Protein (12/23/2015 3:35 PM PDT) + + + + + + | Component | Value | Ref Range | Performed | Pathologist | | | | | At | Signature | + + + + + + | CRP | 34.70 (H) | <8.00 mg/L | [facility] | | | | | | [facility] | | | | | | [facility] | | | | | | CENTER - | | | | | | LABORATORY | | + + + + + + + + | Specimen | + + | Blood | + + + + + + + | Performing | Address | City/State/Zipcode | Phone Number | | Organization | | | | + + + + + | [facility] | [address] | [place] | [phone] | | [facility] | | [address] | | | - LABORATORY | | | | + + + + + Troponin I (12/23/2015 3:35 PM PDT) + + + + + + | Component | Value | Ref Range | Performed | Pathologist | | | | | At | Signature | + + + + + + | Troponin I | <0.01Comment: Reference | <0.06 ng/mL | [facility] | | | | Ranges:0.00-0.06 = | | [facility] | | | | NORMAL>0.06 = | | MEDICAL | | | | SUSPICIOUS FOR | | CENTER - | | | | MYOCARDIAL DAMAGE NOTE: | | LABORATORY | | | | Values greater than 0.50 | | | | | | ng/mL have been shown | | | | | | to be strongly | | | | | | associated with acute | | | | | | myocardial infarction. | | | | | | The [employer] | | | | | | Cardiology (ACC) | | | | | | recommends a decision | | | | | | limit of 0.06 ng/mL for | | | | | | this assay. Results | | | | | | greater than 0.06 can | | | | | | reflect a pre-infarct | | | | | | acute coronary syndrome, | | | | | | but can also reflect | | | | | | myocardial necrosis or | | | | | | injury that is not due | | | | | | to coronary artery | | | | | | disease. Some of these | | | | | | causes are sepsis, | | | | | | hypocolemia, atrial | | | | | | fibrillation, heart | | | | | | failure, pulmonary | | | | | | embolism, myocarditis, | | | | | | myocardial contusion, | | | | | | and renal failure. The | | | | | | diagnosis of myocardial | | | | | | infarction should be | | | | | | based on a combination | | | | | | of the patient's | | | | | | clinical presentation | | | | | | and the clinical | | | | | | laboratory test results | | | | | | (especially serial | | | | | | troponin levels). | | | | + + + + + + + + | Specimen | + + | Blood | + + + + + + + | Performing | Address | City/State/Zipcode | Phone Number | | Organization | | | | + + + + + | [facility] | [address] | [place] | [phone] | | [facility] | | [address] | | | - LABORATORY | | | | + + + + + B Type Natriuretic Peptide (12/23/2015 3:35 PM PDT) + +-------+ + + + | Component | Value | Ref Range | Performed | Pathologist | | | | | At | Signature | + +-------+ + + + | BNP | 40 | <100 pg/mL | [facility] | | | | | | [facility] | | | | | | [facility] | | | | | | CENTER - | | | | | | LABORATORY | | + +-------+ + + + + + | Specimen | + + | Blood | + + + + + + + | Performing | Address | City/State/Zipcode | Phone Number | | Organization | | | | + + + + + | [facility] | [address] | [place] | [phone] | | [facility] | | [address] | | | - LABORATORY | | | | + + + + + Comprehensive Metabolic Panel (12/23/2015 3:35 PM PDT) + + + + + + | Component | Value | Ref Range | Performed | Pathologist | | | | | At | Signature | + + + + + + | Na | 137 | 136 - 149 | [facility] | | | | | mmol/L | [facility] | | | | | | MEDICAL | | | | | | CENTER - | | | | | | LABORATORY | | + + + + + + | K | 4.5Comment: AMYLASE, | 3.5 - 5.1 | [facility] | | | | AMMONIA, CPK, INORGANIC | mmol/L | [facility] | | | | PHOSPHORUS, IRON, K+, | | MEDICAL | | | | LACTIC ACID, LDH, | | CENTER - | | | | MAGNESIUM, SGOT/AST, | | LABORATORY | | | | SGPT/ALT, TOTAL | | | | | | BILIRUBIN, DIRECT | | | | | | BILIRUBIN URIC ACID, | | | | | | AND GAMMA GT may be | | | | | | adversely affected by 3+ | | | | | | hemolysis. | | | | + + + + + + | Cl | 102 | 98 - 109 mmol/L | [facility] | | | | | | [facility] | | | | | | [facility]ICAL | | | | | | CENTER - | | | | | | LABORATORY | | + + + + + + | CO2 | 26 | 24 - 31 mmol/L | [facility] | | | | | | [facility] | | | | | | [facility] | | | | | | CENTER - | | | | | | LABORATORY | | + + + + + + | Anion Gap | 9 | 3 - 16 mmol/L | [facility] | | | | | | [facility] | | | | | | [facility]ICAL | | | | | | CENTER - | | | | | | LABORATORY | | + + + + + + | Glucose | 146 (H) | 70 - 109 mg/dL | [facility] | | | | | | [facility] | | | | | | [facility] | | | | | | CENTER - | | | | | | LABORATORY | | + + + + + + | BUN | 11 | 7 - 18 mg/dL | [facility] | | | | | | [facility] | | | | | | [facility] | | | | | | CENTER - | | | | | | LABORATORY | | + + + + + + | Creatinine | 1.08 | 0.60 - 1.30 | [facility] | | | | | mg/dL | [facility] | | | | | | MEDICAL | | | | | | CENTER - | | | | | | LABORATORY | | + + + + + + | eGFR if not | 53 (L)Comment: | >=60 | [facility] | | | | GLOMERULAR FILTRATION | mL/min/1.73m2 | [facility] | | | [facility] | RATE,ESTIMATED | | MEDICAL | | | | mL/min/1.15b5Pbhc than | | CENTER - | | | | 60 Chronic kidney | | LABORATORY | | | | disease,if found over a | | | | | | 3-month period.Less than | | | | | | 15 Kidney failureFor | | | | | | | | | | | | Americans,multiply the | | | | | | calculated GFR by 1.21. | | | | | | | | | | + + + + + + | Calcium | 9.4 | 8.3 - 10.5 | [facility] | | | | | mg/dL | [facility] | | | | | | [facility]ICAL | | | | | | CENTER - | | | | | | LABORATORY | | + + + + + + | Albumin | 4.3 | 3.2 - 5.0 g/dL | [facility] | | | | | | [facility] | | | | | | [facility] | | | | | | CENTER - | | | | | | LABORATORY | | + + + + + + | Bilirubin | 1.9 (H)Comment: | 0.1 - 1.5 mg/dL | [facility] | | | Total | AMYLASE, AMMONIA, CPK, | | [facility] | | | | INORGANIC PHOSPHORUS, | | MEDICAL | | | | IRON, K+, LACTIC ACID, | | CENTER - | | | | LDH, MAGNESIUM, | | LABORATORY | | | | SGOT/AST, SGPT/ALT, | | | | | | TOTAL BILIRUBIN, DIRECT | | | | | | BILIRUBIN URIC ACID, | | | | | | AND GAMMA GT may be | | | | | | adversely affected by 3+ | | | | | | hemolysis.This is an | | | | | | appended report. These | | | | | | results have been | | | | | | appended to a previously | | | | | | preliminary verified | | | | | | report. | | | | + + + + + + | Total | 7.3 | 6.0 - 7.8 g/dL | [facility] | | | Protein | | | [facility] | | | | | | MEDICAL | | | | | | CENTER - | | | | | | LABORATORY | | + + + + + + | AST | 35Comment: AMYLASE, | 10 - 42 U/L | [facility] | | | | AMMONIA, CPK, INORGANIC | | [facility] | | | | PHOSPHORUS, IRON, K+, | | MEDICAL | | | | LACTIC ACID, LDH, | | CENTER - | | | | MAGNESIUM, SGOT/AST, | | LABORATORY | | | | SGPT/ALT, TOTAL | | | | | | BILIRUBIN, DIRECT | | | | | | BILIRUBIN URIC ACID, | | | | | | AND GAMMA GT may be | | | | | | adversely affected by 3+ | | | | | | hemolysis.This is an | | | | | | appended report. These | | | | | | results have been | | | | | | appended to a previously | | | | | | preliminary verified | | | | | | report. | | | | + + + + + + | ALT | 16Comment: AMYLASE, | 6 - 45 U/L | [facility] | | | | AMMONIA, CPK, INORGANIC | | [facility] | | | | PHOSPHORUS, IRON, K+, | | MEDICAL | | | | LACTIC ACID, LDH, | | CENTER - | | | | MAGNESIUM, SGOT/AST, | | LABORATORY | | | | SGPT/ALT, TOTAL | | | | | | BILIRUBIN, DIRECT | | | | | | BILIRUBIN URIC ACID, | | | | | | AND GAMMA GT may be | | | | | | adversely affected by 3+ | | | | | | hemolysis.This is an | | | | | | appended report. These | | | | | | results have been | | | | | | appended to a previously | | | | | | preliminary verified | | | | | | report. | | | | + + + + + + | Alkaline | 78Comment: This is an | 40 - 110 U/L | [facility] | | | Phosphatase | appended report. These | | [facility] | | | | results have been | | MEDICAL | | | | appended to a previously | | CENTER - | | | | preliminary verified | | LABORATORY | | | | report. | | | | + + + + + + | Globulin | 3.0 | 2.1 - 3.8 g/dL | [facility] | | | | | | [facility] | | | | | | MEDICAL | | | | | | CENTER - | | | | | | LABORATORY | | + + + + + + | Albumin/Colleen | 1.4 | 0.8 - 2.0 | [facility] | | | bulin Ratio | | | [facility] | | [facility] | [facility] | [facility] - | | | | | | LABORATORY | | + + + + + + | BUN/Creatin | 10.2 | | [facility] | | | ine Ratio | | | [facility] | [facility] | [facility] | | | | | [facility] - | | | | | | LABORATORY | | + + + + + + + + | Specimen | + + | Blood | + + + + + | Narrative | Performed At | + + + | There is no significant interference from 1+ lipemia. | [facility] | [facility] | | | - [facility] | + + + + + + + + | Performing | Address | City/State/Zipcode | Phone Number | | Organization | | | | + + + + + | [facility] | [address] | [place] | [phone] | | [facility] | | [address] | | | - LABORATORY | | | | + + + + + CBC w/ Auto Differential (12/23/2015 3:35 PM PDT) + + + + + + | Component | Value | Ref Range | Performed | Pathologist | | | | | At | Signature | + + + + + + | WBC | 15.0 (H) | 4.0 - 11.0 K/uL | [facility] | | | | | | [facility] | | | | | | [facility] | | | | [facility] - | | | | | | LABORATORY | | + + + + + + | RBC | 5.83 (H) | 3.70 - 5.20 | [facility] | | | | | M/uL | [facility] | | | | | | [facility] | | | | | | [facility] - | | | | | | LABORATORY | | + + + + + + | Hemoglobin | 17.5 (H) | 11.5 - 16.0 | [facility] | | | | | g/dL | [facility] | | | | | | [facility] | | | | | | [facility] - | | | | | | LABORATORY | | + + + + + + | Hematocrit | 50.9 (H) | 34.0 - 47.0 % | [facility] | | | | | | [facility] | | | | | | [facility] | | | | | | [facility] - | | | | | | LABORATORY | | + + + + + + | MCV | 87.4 | 83.0 - 101.0 fL | [facility] | | | | | | [facility] | | | | | | [facility] | | | | | [facility] - | | | | | | LABORATORY | | + + + + + + | MCH | 30.1 | 28.0 - 35.0 pg | [facility] | | | | | | [facility] | | | | | | [facility] | | | | | | [facility] - | | | | | | LABORATORY | | + + + + + + | MCHC | 34.4 | 32.0 - 36.0 | [facility] | | | | | g/dL | [facility] | | | | | | [facility] | | | | | | [facility] - | | | | | | LABORATORY | | + + + + + + | RDW-CV | 14.2 | <15.0 % | [facility] | | | | | | [facility] | | | | | | [facility] | | | | | | [facility] - | | | | | | LABORATORY | | + + + + + + | Platelet | 289 | 140 - 440 K/uL | [facility] | | | Count | | | [facility] | | | | | | [facility] | | | | | | [facility] - | | | | | | LABORATORY | | + + + + + + | MPV | 8.5 | fL | [facility] | | | | | | [facility] | | | | | | [facility] | | | | | | [facility] - | | | | | | LABORATORY | | + + + + + + | % | 79.2 | 45.0 - 82.0 % | [facility] | | | Neutrophils | | | [facility] | | | | | | [facility] | | | | | | [facility] - | | | | | | LABORATORY | | + + + + + + | % | 11.6 (L) | 20.0 - 45.0 % | [facility] | | | Lymphocytes | | | [facility] | | | | | | [facility] | | | | | | [facility] - | | | | | | LABORATORY | | + + + + + + | % Monocytes | 8.3 | 4.0 - 12.0 % | [facility] | | | | | | [facility] | | | | | | [facility] | | | | | | [facility] - | | | | | | LABORATORY | | + + + + + + | % | 0.2 | 0.0 - 5.0 % | [facility] | | | Eosinophils | | | [facility] | | | | | | [facility] | | | | | | [facility] - | | | | | | LABORATORY | | + + + + + + | % Basophils | 0.7 | 0.0 - 1.0 % | [facility] | | | | | | [facility] | | | | | | [facility] | | | | | | [facility] - | | | | | | LABORATORY | | + + + + + + | Absolute | 11.90 (H) | 1.80 - 8.50 | [facility] | | | Neutrophils | | K/uL | [facility] | | | | | | [facility] | | | | | | [facility] - | | | | | | LABORATORY | | + + + + + + | Absolute | 1.70 | 0.60 - 3.20 | [facility] | | | Lymphocytes | | K/uL | [facility] | | | | | | [facility] | | | | | | [facility] - | | | | | | LABORATORY | | + + + + + + | Absolute | 1.30 (H) | 0.00 - 1.00 | [facility] | | | Monocytes | | K/uL | [facility] | | | | | | [facility] | | | | | | [facility] - | | | | | | LABORATORY | | + + + + + + | Absolute | 0.00 | 0.00 - 0.40 | [facility] | | | Eosinophils | | K/uL | [facility] | | | | | | [facility] | | | | | | [facility] - | | | | | | LABORATORY | | + + + + + + | Absolute | 0.10 | 0.00 - 0.10 | [facility] | | | Basophils | | K/uL | [facility] | | | | | | [facility] | | | | | | [facility] - | | | | | | LABORATORY | | + + + + + + + + | Specimen | + + | Blood | + + + + + + + | Performing | Address | City/State/Zipcode | Phone Number | | Organization | | | | + + + + + | [facility] | [address] | [place] | [phone] | | [facility] | | [address] | | | - LABORATORY | | | | + + + + + ECG 12 lead (12/23/2015 3:23 PM PDT) + + + + + + | Component | Value | Ref Range | Performed | Pathologist | | | | | At | Signature | + + + + + + | VENTRICULAR | 121 | BPM | [facility] | | | RATE EKG | | | | | + + + + + + | ATRIAL RATE | 121 | BPM | [facility] | | + + + + + + | P-R | 202 | ms | [facility] | | | INTERVAL | | | | | + + + + + + | QRS | 82 | ms | [facility] | | | DURATION | | | | | + + + + + + | Q-T | 418 | ms | [facility] | | | INTERVAL | | | | | + + + + + + | Q-T | 593 | ms | [facility] | | | INTERVAL | | | | | | (CORRECTED) | | | | | + + + + + + | QRS AXIS | 97 | degrees | [facility] | | + + + + + + | T AXIS | 84 | degrees | [facility] | | + + + + + + | INTERPRETAT | sinus tachycardia with | | [facility] | | | ION TEXT | first-degree AV | | | | | | blockRightward | | | | | | axisNonspecific ST | | | | | | abnormalityProlonged | | | | | | QTCAbnormal ECGNo | | | | | | previous ECGs | | | | | | availableConfirmed by | | | | | | PITO VASQUES MD ([id number]) | | | | | | on 12/24/2015 6:51:12 AM | | | | + + + + + + + + | Specimen | + + | | + + + + + | Narrative | Performed At | + + + | | | + + + + +---------+ + + | Performing | Address | City/State/Zipcode | Phone Number | | Organization | | | | + +---------+ + + | [facility] | | | | + +---------+ + + documented in this encounter Visit Diagnoses + + | Diagnosis | + + | Acute respiratory failure with hypoxia (HCC) - Primary Acute respiratory failure | + + | COPD with acute exacerbation (HCC) Obstructive chronic bronchitis with exacerbation | + + | Acute bronchitis, unspecified organism | + + | Depression, unspecified depression type | + + | Essential hypertension Unspecified essential hypertension | + + | Tobacco abuse Tobacco use disorder | + + | COPD (chronic obstructive pulmonary disease) (HCC) Chronic airway obstruction, not | | elsewhere classified | + + documented in this encounter Administered Medications + +--------+ +--------+------+------+ | Medication Order | MAR | Action | Dose | Rate | Site | | | Action | Date | | | | + +--------+ +--------+------+------+ | acetaminophen (TYLENOL) tablet | Given | 12/24/19 | 650 mg | | | | 650 mg 650 mg, Oral, EVERY 4 | | 16 9:31 | | | | | HOURS PRN, Pain, or fever >= 38.3 | | AM PDT | | | | | C (101.5 F), Starting [facility] | | | | | | | 12/23/15 at 2325 | | | | | | + +--------+ +--------+------+------+ +---+---+ | | | +---+---+ + +-------+ +--------+---+---+ | albuterol 2.5 mg/3 mL nebulizer | Given | 12/25/19 | 2.5 mg | | | | solution 2.5 mg 2.5 mg, | | 16 1:09 | | | | | Nebulization, RT EVERY 4 HOURS | | AM PDT | | | | | PRN, Wheezing, Shortness of | | | | | | | Breath, Increased Work of | | | | | | | Breathing, Starting [facility] 12/23/15 | | | | | | | at 2325, RT will administer., | | | | | | + +-------+ +--------+---+---+ +-------+ +--------+---+---+ | Given | 12/24/19 | 2.5 mg | | | | | 16 10:27 | | | | | | AM PDT | | | | +-------+ +--------+---+---+ +---+---+ | | | +---+---+ + +-------+ +--------+---+---+ | albuterol 2.5 mg/3 mL nebulizer | Given | 12/26/19 | 2.5 mg | | | | solution 2.5 mg 2.5 mg, | | 16 11:34 | | | | | Nebulization, RT EVERY 1 HOUR | | PM PDT | | | | | PRN, Wheezing, Shortness of | | | | | | | Breath, Increased Work of | | | | | | | Breathing, Starting 12/25/15 | | | | | | | at 1345, RT will administer., | | | | | | + +-------+ +--------+---+---+ +-------+ +--------+---+---+ | Given | 12/26/19 | 2.5 mg | | | | | 16 4:46 | | | | | | AM PDT | | | | +-------+ +--------+---+---+ | Given | 12/26/19 | 2.5 mg | | | | | 16 1:10 | | | | | | AM PDT | | | | +-------+ +--------+---+---+ +---+---+ | | | +---+---+ + +-------+ +-------+---+---+ | albuterol 5 mg/mL concentrated | Given | 12/23/19 | 10 mg | | | | nebulizer solution 10 mg 10 mg, | | 16 3:27 | | | | | Nebulization, RT Once, [facility] | | PM PDT | | | | | 12/23/15 at 1520, For 1 dose, RT | | | | | | | will administer., | | | | | | + +-------+ +-------+---+---+ +---+---+ | | | +---+---+ + +-------+ +------+---+---+ | albuterol 5 mg/mL concentrated | Given | 12/23/19 | 5 mg | | | | nebulizer solution 5 mg 5 mg, | | 16 4:47 | | | | | Nebulization, RT Once, [facility] | | PM PDT | | | | | 12/23/15 at 1630, For 1 dose, RT | | | | | | | will administer., | | | | | | + +-------+ +------+---+---+ +---+---+ | | | +---+---+ + +-------+ +------+---+---+ | albuterol 5 mg/mL concentrated | Given | 12/23/19 | 5 mg | | | | nebulizer solution 5 mg 5 mg, | | 16 6:32 | | | | | Nebulization, RT Once, [facility] | | PM PDT | | | | | 12/23/15 at 1825, For 1 dose, RT | | | | | | | will administer., | | | | | | + +-------+ +------+---+---+ +---+---+ | | | +---+---+ + +-------+ +-------+---+---+ | albuterol-ipratropium (DUONEB) | Given | 12/25/19 | 3 mLs | | | | 2.5-0.5 mg/3 mL nebulizer | | 16 7:52 | | | | | solution 3 mL 3 mL, | | AM PDT | | | | | Nebulization, RT Q6H, First dose | | | | | | | on [facility] 12/23/15 at 2345 | | | | | | + +-------+ +-------+---+---+ +-------+ +-------+---+---+ | Given | 12/25/19 | 3 mLs | | | | | 16 3:49 | | | | | | AM PDT | | | | +-------+ +-------+---+---+ | Given | 12/24/19 | 3 mLs | | | | | 16 11:20 | | | | | | PM PDT | | | | +-------+ +-------+---+---+ +---+---+ | | | +---+---+ + +-------+ +-------+---+---+ | albuterol-ipratropium (DUONEB) | Given | 12/28/19 | 3 mLs | | | | 2.5-0.5 mg/3 mL nebulizer | | 16 8:06 | | | | | solution 3 mL 3 mL, | | AM PDT | | | | | Nebulization, RT Q4H, First dose | | | | | | | (after last modification) on Sat | | | | | | | 12/25/15 at 1200 | | | | | | + +-------+ +-------+---+---+ +-------+ +-------+---+---+ | Given | 12/28/19 | 3 mLs | | | | | 16 12:00 | | | | | | AM PDT | | | | +-------+ +-------+---+---+ | Given | 12/27/19 | 3 mLs | | | | | 16 8:26 | | | | | | PM PDT | | | | +-------+ +-------+---+---+ +---+---+ | | | +---+---+ + +-------+ +-------+---+---+ | atenolol (TENORMIN) tablet 25 | Given | 12/28/19 | 25 mg | | | | mg 25 mg, Oral, DAILY, First | | 16 9:39 | | | | | dose on Sun12/24/15 at 0900 | | AM PDT | | | | + +-------+ +-------+---+---+ +-------+ +-------+---+---+ | Given | 12/27/19 | 25 mg | | | | | 16 8:04 | | | | | | AM PDT | | | | +-------+ +-------+---+---+ | Given | 12/26/19 | 25 mg | | | | | 16 9:51 | | | | | | AM PDT | | | | +-------+ +-------+---+---+ +---+---+ | | | +---+---+ + +-------+ +--------+---+---+ | azithromycin (ZITHROMAX) tablet | Given | 12/28/19 | 250 mg | | | | 250 mg 250 mg, Oral, DAILY, | | 16 9:39 | | | | | First dose on 12/25/15 at | | AM PDT | | | | | 0900, For 4 doses, Indications: | | | | | | | Acute Exacerbation of COPD | | | | | | + +-------+ +--------+---+---+ +-------+ +--------+---+---+ | Given | 12/27/19 | 250 mg | | | | | 16 8:05 | | | | | | AM PDT | | | | +-------+ +--------+---+---+ | Given | 12/26/19 | 250 mg | | | | | 16 9:51 | | | | | | AM PDT | | | | +-------+ +--------+---+---+ +---+---+ | | | +---+---+ + +-------+ +--------+---+---+ | azithromycin (ZITHROMAX) tablet | Given | 12/24/19 | 500 mg | | | | 500 mg 500 mg, Oral, ONCE, Fri | | 16 9:22 | | | | | 12/24/15 at 0800, For 1 dose, | | AM PDT | | | | | Indications: COPD | | | | | | + +-------+ +--------+---+---+ +---+---+ | | | +---+---+ + +-------+ +--------+---+---+ | budesonide (PULMICORT) 0.5 mg/2 | Given | 12/28/19 | 0.5 mg | | | | mL nebulizer solution 0.5 mg | | 16 8:06 | | | | | 0.5 mg, Nebulization, RT BID, | | AM PDT | | | | | First dose on 12/25/15 at | | | | | | | 2000, RT will administer. Shake | | | | | | | well. Protect from light. Rinse | | | | | | | mouth after use., | | | | | | + +-------+ +--------+---+---+ +-------+ +--------+---+---+ | Given | 12/27/19 | 0.5 mg | | | | | 16 8:26 | | | | | | PM PDT | | | | +-------+ +--------+---+---+ | Given | 12/27/19 | 0.5 mg | | | | | 16 8:56 | | | | | | AM PDT | | | | +-------+ +--------+---+---+ +---+---+ | | | +---+---+ + +---------+ +-----+-------+---+ | cefTRIAXone (ROCEPHIN) 1 g in | New Bag | 12/28/19 | 1 g | 100 | | | sodium chloride 0.9% 50 mL IVPB | | 16 10:07 | | mL/hr | | | 1 g, Intravenous, Administer over | | AM PDT | | | | | 30 Minutes, EVERY 24 HOURS | | | | | | | (Daily), First dose on Sun | | | | | | | 12/24/15 at 0900, Pharmacist may | | | | | | | adjust Activate system and mix | | | | | | | before use., Indications: Acute | | | | | | | Bronchitis, Acute Exacerbation of | | | | | | | COPD | | | | | | + +---------+ +-----+-------+---+ +---------+ +-----+-------+---+ | New Bag | 12/27/19 | 1 g | 100 | | | | 16 8:03 | | mL/hr | | | | AM PDT | | | | +---------+ +-----+-------+---+ | New Bag | 12/26/19 | 1 g | 100 | | | | 16 9:50 | | mL/hr | | | | AM PDT | | | | +---------+ +-----+-------+---+ +---+---+ | | | +---+---+ + +---------+ +-----+-------+---+ | cefTRIAXone (ROCEPHIN) 1 g in | New Bag | 12/23/19 | 1 g | 100 | | | sodium chloride 0.9% 50 mL IVPB | | 16 11:12 | | mL/hr | | | 1 g, Intravenous, Administer over | | PM PDT | | | | | 30 Minutes, ONCE, [facility] 12/23/15 at | | | | | | | 2245, For 1 dose, Pharmacist may | | | | | | | adjust Activate system and mix | | | | | | | before use., Indications: Acute | | | | | | | Bronchitis | | | | | | + +---------+ +-----+-------+---+ +---+---+ | | | +---+---+ + +-------+ +-------+---+ + | enoxaparin (LOVENOX) 40 mg/0.4 | Given | 12/28/19 | 40 mg | | Abdomen- | | mL injection 40 mg 40 mg, | | 16 9:40 | | | RLQ | | Subcutaneous, EVERY 24 HOURS | | AM PDT | | | | | (Daily), First dose on Sun | | | | | | | 12/24/15 at 0900 | | | | | | + +-------+ +-------+---+ + +-------+ +-------+---+ + | Given | 12/27/19 | 40 mg | | Abdomen- | | | 16 8:04 | | | LLQ | | | AM PDT | | | | +-------+ +-------+---+ + | Given | 12/26/19 | 40 mg | | Abdomen- | | | 16 9:50 | | | LLQ | | | AM PDT | | | | +-------+ +-------+---+ + +---+---+ | | | +---+---+ + +-------+ +-------+---+---+ | escitalopram (LEXAPRO) tablet | Given | 12/28/19 | 20 mg | | | | 20 mg 20 mg, Oral, DAILY, First | | 16 9:39 | | | | | dose on Sun12/24/15 at 0900 | | AM PDT | | | | + +-------+ +-------+---+---+ +-------+ +-------+---+---+ | Given | 12/27/19 | 20 mg | | | | | 16 8:05 | | | | | | AM PDT | | | | +-------+ +-------+---+---+ | Given | 12/26/19 | 20 mg | | | | | 16 9:51 | | | | | | AM PDT | | | | +-------+ +-------+---+---+ +---+---+ | | | +---+---+ + +-------+ +--------+---+---+ | guaiFENesin (ROBITUSSIN) 100 | Given | 12/24/19 | 200 mg | | | | mg/5 mL liquid 200 mg 200 mg, | | 16 2:27 | | | | | Oral, EVERY 4 HOURS PRN, Cough, | | PM PDT | | | | | Starting [facility] 12/23/15 at 2325 | | | | | | + +-------+ +--------+---+---+ +-------+ +--------+---+---+ | Given | 12/24/19 | 200 mg | | | | | 16 9:30 | | | | | | AM PDT | | | | +-------+ +--------+---+---+ +---+---+ | | | +---+---+ + +-------+ +-------+---+---+ | loratadine (CLARITIN) tablet 10 | Given | 12/28/19 | 10 mg | | | | mg 10 mg, Oral, DAILY, First | | 16 9:39 | | | | | dose on 12/24/15 at 0900 | | AM PDT | | | | + +-------+ +-------+---+---+ +-------+ +-------+---+---+ | Given | 12/27/19 | 10 mg | | | | | 16 8:05 | | | | | | AM PDT | | | | +-------+ +-------+---+---+ | Given | 12/26/19 | 10 mg | | | | | 16 9:51 | | | | | | AM PDT | | | | +-------+ +-------+---+---+ +---+---+ | | | +---+---+ + +---------+ +-----+ +---+ | magnesium sulfate 2 g/50 mL | New Bag | 12/23/19 | 2 g | 25 mL/hr | | | IVPB 2 g 2 g, Intravenous, | | 16 6:05 | | | | | Administer over 120 Minutes, | | PM PDT | | | | | ONCE, [facility] 12/23/15 at 1745, For 1 | | | | | | | dose, Maximum recommended | | | | | | | infusion rate = 1 gram/hour., | | | | | | + +---------+ +-----+ +---+ +---+---+ | | | +---+---+ + +-------+ +-------+---+---+ | methylprednisoLONE sodium | Given | 12/23/19 | 60 mg | | | | succinate (solu-MEDROL) 62.5 | | 16 3:36 | | | | | mg/mL injection 60 mg 60 mg, | | PM PDT | | | | | Intravenous, ONCE, [facility] 12/23/15 at | | | | | | | 1520, For 1 dose, Mix with 2 mL | | | | | | | provided diluent to make 62.5 | | | | | | | mg/mL., | | | | | | + +-------+ +-------+---+---+ +---+---+ | | | +---+---+ + +-------+ +-------+---+---+ | pantoprazole (PROTONIX) DR | Given | 12/28/19 | 40 mg | | | | tablet 40 mg 40 mg, Oral, DAILY | | 16 6:49 | | | | | BEFORE BREAKFAST, First dose on | | AM PDT | | | | | 12/24/15 at 0730, Do not cut | | | | | | | or crush., | | | | | | + +-------+ +-------+---+---+ +-------+ +-------+---+---+ | Given | 12/27/19 | 40 mg | | | | | 16 6:40 | | | | | | AM PDT | | | | +-------+ +-------+---+---+ | Given | 12/26/19 | 40 mg | | | | | 16 6:49 | | | | | | AM PDT | | | | +-------+ +-------+---+---+ +---+---+ | | | +---+---+ + +-------+ +--------+---+---+ | potassium chloride (K-DUR) ER | Given | 12/26/19 | 40 mEq | | | | tablet 40 mEq 40 mEq, Oral, | | 16 9:51 | | | | | ONCE, 12/26/15 at 0930, For 1 | | AM PDT | | | | | dose, Tablet may be cut where | | | | | | | scored but do not crush., | | | | | | + +-------+ +--------+---+---+ +---+---+ | | | +---+---+ + +-------+ +-------+---+---+ | predniSONE (DELTASONE) tablet | Given | 12/28/19 | 40 mg | | | | 40 mg 40 mg, Oral, DAILY, First | | 16 9:40 | | | | | dose on Sun12/24/15 at 0900 | | AM PDT | | | | + +-------+ +-------+---+---+ +-------+ +-------+---+---+ | Given | 12/27/19 | 40 mg | | | | | 16 8:05 | | | | | | AM PDT | | | | +-------+ +-------+---+---+ | Given | 12/26/19 | 40 mg | | | | | 16 9:51 | | | | | | AM PDT | | | | +-------+ +-------+---+---+ +---+---+ | | | +---+---+ + +---------+ +--------+-------+---+ | sodium chloride 0.9% (NS) bolus | New Bag | 12/23/19 | 1,000 | 4000 | | | 1,000 mL 1,000 mL, Intravenous, | | 16 6:04 | mLs | mL/hr | | | Administer over 15 Minutes, | | PM PDT | | | | | ONCE, [facility] 12/23/15 at 1745, For 1 | | | | | | | dose | | | | | | + +---------+ +--------+-------+---+ +---+---+ | | | +---+---+ + +---------+ +--------+ +---+ | sodium chloride 0.9% (NS) | New Bag | 12/27/19 | 1,000 | 50 mL/hr | | | infusion at 50 mL/hr, | | 16 8:04 | mLs | | | | Intravenous, CONTINUOUS, Starting | | AM PDT | | | | | [facility] 12/23/15 at 2345 | | | | | | + +---------+ +--------+ +---+ +---------+ +---+ +---+ | New Bag | 12/26/19 | | 50 mL/hr | | | | 16 1:57 | | | | | | PM PDT | | | | +---------+ +---+ +---+ | New Bag | 12/24/19 | | 50 mL/hr | | | | 16 9:43 | | | | | | PM PDT | | | | +---------+ +---+ +---+ +---+---+ | | | +---+---+ documented in this encounter
--- OUTSIDE RECORDS SUMMARY | ~2019-02-03 | XMS | Encounter Summary ---
Demographics + + + | Address | [address] | | | [place] [address] | + + + | Home Phone | | + + + | Preferred Language | Unknown | + + + | Marital Status | | + + + | Jainism Affiliation | [id number] | + + + | Race | Unknown | + + + | Ethnic Group | Unknown | + + + Author + + + | Author | [facility] | | | and Samirana | + + + | Organization | [facility] | | | [...] Team Providers + +------+ + | Care Movie Editor Name | Role | Phone | + +------+ + | Scot Anton MD | PCP | | + +------+ + Reason for Referral Home Health Care (Routine) +--------+ + + + + + | Status | Reason | Specialty | Diagnoses / | Referred By | Referred To | | | | | Procedures | Contact | Contact | +--------+ + + + + + | Closed | Specialty | Home Health | Diagnoses | Ibarra, | Prov Hh | | | Services | Services | COPD | Thang H, | [place] | | | Required | | exacerbation | [address] | | | | | ([facility]) | [address] | [address] [place] | | | | | Acute on | [place], | [place] | | | | | chronic | [place] | [address] | | | | | respiratory | [address] | Phone: | | | | | failure with | Phone: | [phone] | | | | | hypoxia | [phone] | Fax: | | | | | ([facility]) | Fax: | [phone] | | | | | | [phone] | | +--------+ + + + + + Pulmonary Rehab (Routine) +--------+ + + + + + | Status | Reason | Specialty | Diagnoses / | Referred By | Referred To | | | | | Procedures | Contact | Contact | +--------+ + + + + + | Closed | Specialty | Pulmonary | Diagnoses | Ibarra, | [facility] | | | Services | Disease / | COPD | Thang H, | | | | Required | Cardiac | exacerbation | MD [address] | Rehabilitatio | | | | Rehabilitatio | ([facility]) | [address] | [address] | | | | n | Chronic | [place], | [place] | | | | | obstructive | [place] | [place], [place] | | | | | pulmonary | [address] | [address] | | | | | disease, | Phone: | Phone: | | | | | unspecified | [phone] | [phone] | | | | | COPD type | Fax: | Fax: | | | | | ([facility]) Acute | [phone] | [phone] | | | | | on chronic | | | | | | | respiratory | | | | | | | failure with | | | | | | | hypoxia | | | | | | | ([facility]) | | | +--------+ + + + + + Service/Procedure (Routine) +--------+--------+ + + + + | Status | Reason | Specialty | Diagnoses / | Referred By | Referred To | | | | | Procedures | Contact | Contact | +--------+--------+ + + + + | Closed | | DME | Diagnoses | Ibarra, | | | | | | COPD | Thang H, | | | | | | exacerbation | MD [address] | | | | | | ([facility]) | [address] | | | | | | Chronic | [place], | | | | | | obstructive | [place] | | | | | | pulmonary | [address] | | | | | | disease, | Phone: | | | | | | unspecified | [phone] | | | | | | COPD type | Fax: | | | | | | ([facility]) Acute | [phone] | | | | | | on chronic | | | | | | | respiratory | | | | | | | failure with | | | | | | | hypoxia | | | | | | | ([facility]) | | | | | | | Procedures | | | | | | | DME: Oxygen | | | | | | | Therapy | | | +--------+--------+ + + + + Reason for Visit + + + | Reason | Comments | + + + | Shortness of Breath | | + + + Auth/Cert +--------+--------+ + + + + | Status | Reason | Specialty | Diagnoses / | Referred By | Referred To | | | | | Procedures | Contact | Contact | +--------+--------+ + + + + | | | | Diagnoses | | | | | | | Tobacco | | | | | | | abuse | | | | | | | Hypoxia | | | | | | | COPD | | | | | | | exacerbation | | | | | | | ([facility]) | | | +--------+--------+ + + + + Encounter Details +--------+ + + + + | Date | Type | Department | Care Team | Description | +--------+ + + + + | 04/17/ | Hospital | [facility] | Dez Sapp, | COPD exacerbation | | 2019 - | Encounter | [facility] | [address] | ([facility]) (Primary Dx); | | | | [address] [place] | [place], [place] | Hypoxia; Tobacco | | 04/21/ | | [place] [address] | [id number] | abuse; Anxiety; | | 2019 | | [phone] | | Cerebral | | | | | Rafael Reynoso, | microvascular | | | | | [address] | disease; Chronic | | | | | [place], [place] | obstructive | | | | | [address] | pulmonary disease, | | | | | [phone] | unspecified COPD | | | | | | type (HCC); Acute on | | | | | | chronic respiratory | | | | | | failure with | | | | | | hypoxia (HCC) | +--------+ + + + + Social [...] +---+---+---+ + + | Comments: Previously tried Chanlazarox, patch | + + + + +---------+ [...] + + + | Blood Pressure | 139/85 | 04/21/2018 8:59 AM | | | | | PST | | + + + + + | Pulse | 68 | 04/21/2018 11:07 AM | | | | | PST | | + + + + + | Temperature | 37.2 C (98.9 F) | 04/21/2018 8:59 AM | | | | | PST | | + + + + + | Respiratory Rate | 18 | 04/21/2018 11:07 AM | | | | | PST | | + + + + + | Oxygen Saturation | 94% | 04/21/2018 11:07 AM | | | | | PST | | + + + + + | Inhaled Oxygen | - | - | | | Concentration | | | | + + + + + | Weight | 64.9 kg (143 lb 1.3 | 04/20/2018 9:00 AM | | | | oz) | PST | | + + + + + | Height | 157.5 cm (5' 2") | 04/17/2018 11:43 AM | | | | | PST | | + + + + + | Body Mass Index | 26.17 | 04/17/2018 11:43 AM | | | | | PST | | + + + + + documented in this encounter Discharge Summaries Thang Ibarra MD - 04/21/2018 10:56 AM PSTFormatting of this note might be different f rom the original. DISCHARGE SUMMARY Patient Name: Pepper Hand : 1960 Date of Admission: 04/17/2018 Date of Discharge: 04/21/18 Admitting Physician: Rafael Reynoso MD Discharging Physician: Thang Ibarra MD Primary Care Provider: Scot Anton MD Discharge Diagnoses: Active Problems: Tobacco abuse COPD (chronic obstructive pulmonary disease) Acute on chronic respiratory failure with hypoxia Anxiety Cerebral microvascular disease Polycythemia secondary to hypoxia Resolved Problems: * No resolved hospital problems. * Patient Active Problem List Diagnosis Asthma Allergic rhinitis GERD Hypertension Irritable bowel syndrome Obesity Hyperlipidemia EPISTAXIS, RECURRENT Hemorrhoids, external Overactive bladder Tobacco abuse HERNIA, VENTRAL Vitamin D deficiency History of colon polyps COPD (chronic obstructive pulmonary disease) Depressive disorder, not elsewhere classified Essential hypertension Dill's esophagus Anxiety Polycythemia secondary to hypoxia Cerebral microvascular disease Acute on chronic respiratory failure with hypoxia Consultants: None Procedures: 04/17 CXR: FINDINGS: Portable frontal chest radiograph Lungs: Hyperexpansion of the lungs with flattening of the diaphragm. No focal airspace disease, pleural effusion, or pneumothorax. Heart/mediastinum: Cardiac silhouette is of normal size. Central pulmonary vasculature has a normal appearance. Bones: No acute osseous abnormality appreciated. IMPRESSION - No acute disease. Hyperexpansion of the lungs suggesting obstructive pulmonary disease. Ct Head Wo Contrast Result Date: 04/20/2018 EXAM: CT HEAD WO CONTRAST dated 04/20/2018 9:48 AM HISTORY: New dizziness, right eye vision changes Comparison: 03/01/[address] TECHNIQUE: Noncontrast CT is performed from the top o f calvarium through the skull base. Coronal and sagittal reformats are performed. DOSE: DLP 536.61 mGy-cm FINDINGS: BRAIN: Ventricles, sulci and cisterns are unremarkable for age. N o areas of increased attenuation to suggest intracranial hemorrhage. There is no mass, mass effect, or midline shift. There are no abnormal extra-axial fluid or air collections. The re is preservation of the madrid-white differentiation at this time. There is no significant white matter disease. Stable small focal hypodensity in the right basal ganglia. This coul d be a lacuna or dilated perivascular space. The right intracranial vertebral artery appear s dense. SCALP/ CALVARIUM: The scalp and skull are intact and are unremarkable. SINUSES / OR BITS/ MASTOIDS: The visible mastoid air cells and paranasal sinuses are clear. The globes a nd retroconal contents are intact and are unremarkable. IMPRESSION - The intracranial right vertebral artery appears dense. It is uncertain if this is real or artifact. Cannot exclud e thrombosis or dissection is this is of concern. No CT evidence for acute parenchymal orozco es. Dictated and Signed by: Dick Becerril MD Electronically signed: 04/20/2018 10:19 AM Mri Angiogram Head Wo Contrast Result Date: 04/20/2018 EXAM: MRI ANGIOGRAM HEAD WO CONTRAST, MRI ANGIOGRAM NECK W WO CONTRAST, MRI BRAIN W WO CONT RAST dated 04/17/2018 12:00 AM HISTORY: Possible stroke, possible vertebral artery occlusion COMPARISON: Head CT performed the same day. TECHNIQUE: Multiplanar multisequence MR imaging of the brain prior to and following the intravenous administration of 10 cc of [address]. Po [address] contrast 3-D subtracted imaging is performed of the neck vasculature. 3-D ienf-uu-hvajsi imaging is performed through the [place]. MIP reconstructions are performed. Kaci ging is performed on a 3 Lakisha MRI. FINDINGS: BRAIN MRI: No restricted diffusion to suggest acute or subacute ischemia. No significant cerebral or cerebellar atrophy. There is mild b ilateral white matter disease. Mild white matter disease in the joellen. Hypodensity in the ri ght basal ganglia is probably a dilated perivascular space. There is a homogeneously enhanc ing dural based mass along the right temporal lobe. This measures 1.3 x 1.3 x 0.6 cm. It h as a dural tail. There are no abnormal extra axial fluid collections. Ventricles are normal in size and configuration. No susceptibility weighted artifact to suggest abnormal hemosid moise deposition or mineralization. There is enhancement within the cavernous and dural veno us sinuses consistent with patency. There is an enhancing nodule adjacent to the right cave rnous carotid and traversing optic nerve. It measures 7 x 4 x 4 mm. There are 2 punctate f oci of enhancement along the inferior right frontal lobe. The mastoid air cells are clear. The paranasal sinuses are clear. The globes and retrobulbar structures are symmetric and un remarkable. The posterior nasopharyngeal and visible oropharyngeal soft tissues are unremar kable. [place] MRA: There is flow related signal in the distal portions of the vert ebral arteries. There are patent posterior inferior cerebellar arteries. There is a patent basilar artery. There are patent superior cerebellar arteries.. Patent origin left p osterior cerebral artery. Patent right posterior cerebral artery. Patent right posterior co mmunicating artery. The intracranial internal carotid arteries are widely patent. Ophthalm ic arteries are patent bilaterally. No cerebral arteries are patent bilaterally. Anterior cerebral arteries are patent bilaterally. No aneurysmal dilatation. NECK MRA: There is some motion degradation. Aorta: The visible aortic arch is not aneurysmal. The brachycephalic a rtery is widely patent. The right subclavian and visible axillary arteries are patent. The left subclavian and visible axillary arteries are patent. Right: The right common carotid ar miryam is patent. The right internal carotid artery is widely patent. The origin of the righ t vertebral artery is not well seen due to motion. The right vertebral artery is codominant . It is patent. There is no evidence for vessel dissection or occlusion through its basilar termination. Left: The left common carotid artery is widely patent. The left internal gaitan tid artery is widely patent. The origin of the left vertebral artery is not well studied du e to motion degradation. The left vertebral artery is codominant. It is patent. There is no evidence for vessel dissection or occlusion throughout its basilar termination. IMPRESSIO N - No MRI evidence for an acute intrarenal process. Specifically, no acute or subacute isc hemia. No evidence for intracranial hemorrhage. Mild white matter disease. The pattern is m ost suggestive of chronic microvascular ischemic change. There is a 1.3 cm extra-axial mass adjacent to the right temporal lobe with imaging features most consistent with a meningioma. There is a 7 mm homogeneously enhancing nodule close to the course of the right optic nerve and cavernous carotid artery. It is enhancement pattern and location are suggestive of a n eurogenic tumor or meningioma. It is uncertain if this is contributing to the patient's rep orted right eye symptoms. There are 2 small punctate foci of enhancement along the very infe rior margin of the right frontal lobe. It is uncertain if these are intra-axial or extra-ax ial. These are nonspecific. In this area these could be neurogenic tumors or meningiomas a s well. Widely patent internal carotid arteries and vertebral arteries bilaterally. No evid ence for vertebral artery occlusion or dissection. Recommendation: Follow-up and postcontras t brain MRI in 3-6 months. Dictated and Signed by: Dick Becerril MD Electronically nicky d: 04/20/2018 4:43 PM Mri Angiogram Neck W Wo Contrast Result Date: 04/20/2018 EXAM: MRI ANGIOGRAM HEAD WO CONTRAST, MRI ANGIOGRAM NECK W WO CONTRAST, MRI BRAIN W WO CONT RAST dated 04/17/2018 12:00 AM HISTORY: Possible stroke, possible vertebral artery occlusion COMPARISON: Head CT performed the same day. TECHNIQUE: Multiplanar multisequence MR imaging of the brain prior to and following the intravenous administration of 10 cc of [address]. Po [address] contrast 3-D subtracted imaging is performed of the neck vasculature. 3-D sbxm-ki-fgpjjz imaging is performed through the [place]. MIP reconstructions are performed. Kaci ging is performed on a 3 Lakisha MRI. FINDINGS: BRAIN MRI: No restricted diffusion to suggest acute or subacute ischemia. No significant cerebral or cerebellar atrophy. There is mild b ilateral white matter disease. Mild white matter disease in the joellen. Hypodensity in the ri ght basal ganglia is probably a dilated perivascular space. There is a homogeneously enhanc ing dural based mass along the right temporal lobe. This measures 1.3 x 1.3 x 0.6 cm. It h as a dural tail. There are no abnormal extra axial fluid collections. Ventricles are normal in size and configuration. No susceptibility weighted artifact to suggest abnormal hemosid moise deposition or mineralization. There is enhancement within the cavernous and dural veno us sinuses consistent with patency. There is an enhancing nodule adjacent to the right cave rnous carotid and traversing optic nerve. It measures 7 x 4 x 4 mm. There are 2 punctate f oci of enhancement along the inferior right frontal lobe. The mastoid air cells are clear. The paranasal sinuses are clear. The globes and retrobulbar structures are symmetric and un remarkable. The posterior nasopharyngeal and visible oropharyngeal soft tissues are unremar kable. [place] MRA: There is flow related signal in the distal portions of the vert ebral arteries. There are patent posterior inferior cerebellar arteries. There is a patent basilar artery. There are patent superior cerebellar arteries.. Patent origin left p osterior cerebral artery. Patent right posterior cerebral artery. Patent right posterior co mmunicating artery. The intracranial internal carotid arteries are widely patent. Ophthalm ic arteries are patent bilaterally. No cerebral arteries are patent bilaterally. Anterior cerebral arteries are patent bilaterally. No aneurysmal dilatation. NECK MRA: There is some motion degradation. Aorta: The visible aortic arch is not aneurysmal. The brachycephalic a rtery is widely patent. The right subclavian and visible axillary arteries are patent. The left subclavian and visible axillary arteries are patent. Right: The right common carotid ar miryam is patent. The right internal carotid artery is widely patent. The origin of the righ t vertebral artery is not well seen due to motion. The right vertebral artery is codominant . It is patent. There is no evidence for vessel dissection or occlusion through its basilar termination. Left: The left common carotid artery is widely patent. The left internal gaitan tid artery is widely patent. The origin of the left vertebral artery is not well studied du e to motion degradation. The left vertebral artery is codominant. It is patent. There is no evidence for vessel dissection or occlusion throughout its basilar termination. IMPRESSIO N - No MRI evidence for an acute intrarenal process. Specifically, no acute or subacute isc hemia. No evidence for intracranial hemorrhage. Mild white matter disease. The pattern is m ost suggestive of chronic microvascular ischemic change. There is a 1.3 cm extra-axial mass adjacent to the right temporal lobe with imaging features most consistent with a meningioma. There is a 7 mm homogeneously enhancing nodule close to the course of the right optic nerve and cavernous carotid artery. It is enhancement pattern and location are suggestive of a n eurogenic tumor or meningioma. It is uncertain if this is contributing to the patient's rep orted right eye symptoms. There are 2 small punctate foci of enhancement along the very infe rior margin of the right frontal lobe. It is uncertain if these are intra-axial or extra-ax ial. These are nonspecific. In this area these could be neurogenic tumors or meningiomas a s well. Widely patent internal carotid arteries and vertebral arteries bilaterally. No evid ence for vertebral artery occlusion or dissection. Recommendation: Follow-up and postcontras t brain MRI in 3-6 months. Dictated and Signed by: Dick Becerril MD Electronically nicky d: 04/20/2018 4:43 PM Mri Brain W Wo Contrast Result Date: 04/20/2018 EXAM: MRI ANGIOGRAM HEAD WO CONTRAST, MRI ANGIOGRAM NECK W WO CONTRAST, MRI BRAIN W WO CONT RAST dated 04/17/2018 12:00 AM HISTORY: Possible stroke, possible vertebral artery occlusion COMPARISON: Head CT performed the same day. TECHNIQUE: Multiplanar multisequence MR imaging of the brain prior to and following the intravenous administration of 10 cc of [address]av[address]. Po [address] contrast 3-D subtracted imaging is performed of the neck vasculature. 3-D uzeo-qa-ofziir imaging is performed through the [place]. MIP reconstructions are performed. Kaci ging is performed on a 3 Lakisha MRI. FINDINGS: BRAIN MRI: No restricted diffusion to suggest acute or subacute ischemia. No significant cerebral or cerebellar atrophy. There is mild b ilateral white matter disease. Mild white matter disease in the joellen. Hypodensity in the ri ght basal ganglia is probably a dilated perivascular space. There is a homogeneously enhanc ing dural based mass along the right temporal lobe. This measures 1.3 x 1.3 x 0.6 cm. It h as a dural tail. There are no abnormal extra axial fluid collections. Ventricles are normal in size and configuration. No susceptibility weighted artifact to suggest abnormal hemosid moise deposition or mineralization. There is enhancement within the cavernous and dural veno us sinuses consistent with patency. There is an enhancing nodule adjacent to the right cave rnous carotid and traversing optic nerve. It measures 7 x 4 x 4 mm. There are 2 punctate f oci of enhancement along the inferior right frontal lobe. The mastoid air cells are clear. The paranasal sinuses are clear. The globes and retrobulbar structures are symmetric and un remarkable. The posterior nasopharyngeal and visible oropharyngeal soft tissues are unremar kable. [place] MRA: There is flow related signal in the distal portions of the vert ebral arteries. There are patent posterior inferior cerebellar arteries. There is a patent basilar artery. There are patent superior cerebellar arteries.. Patent origin left p osterior cerebral artery. Patent right posterior cerebral artery. Patent right posterior co mmunicating artery. The intracranial internal carotid arteries are widely patent. Ophthalm ic arteries are patent bilaterally. No cerebral arteries are patent bilaterally. Anterior cerebral arteries are patent bilaterally. No aneurysmal dilatation. NECK MRA: There is some motion degradation. Aorta: The visible aortic arch is not aneurysmal. The brachycephalic a rtery is widely patent. The right subclavian and visible axillary arteries are patent. The left subclavian and visible axillary arteries are patent. Right: The right common carotid ar miryam is patent. The right internal carotid artery is widely patent. The origin of the righ t vertebral artery is not well seen due to motion. The right vertebral artery is codominant . It is patent. There is no evidence for vessel dissection or occlusion through its basilar termination. Left: The left common carotid artery is widely patent. The left internal gaitan tid artery is widely patent. The origin of the left vertebral artery is not well studied du e to motion degradation. The left vertebral artery is codominant. It is patent. There is no evidence for vessel dissection or occlusion throughout its basilar termination. IMPRESSIO N - No MRI evidence for an acute intrarenal process. Specifically, no acute or subacute isc hemia. No evidence for intracranial hemorrhage. Mild white matter disease. The pattern is m ost suggestive of chronic microvascular ischemic change. There is a 1.3 cm extra-axial mass adjacent to the right temporal lobe with imaging features most consistent with a meningioma. There is a 7 mm homogeneously enhancing nodule close to the course of the right optic nerve and cavernous carotid artery. It is enhancement pattern and location are suggestive of a n eurogenic tumor or meningioma. It is uncertain if this is contributing to the patient's rep orted right eye symptoms. There are 2 small punctate foci of enhancement along the very infe rior margin of the right frontal lobe. It is uncertain if these are intra-axial or extra-ax ial. These are nonspecific. In this area these could be neurogenic tumors or meningiomas a s well. Widely patent internal carotid arteries and vertebral arteries bilaterally. No evid ence for vertebral artery occlusion or dissection. Recommendation: Follow-up and postcontras t brain MRI in 3-6 months. Dictated and Signed by: Dick Becerril MD Electronically nicky d: 04/20/2018 4:43 PM Recent Results (from the past 48 hour(s)) CBC with Differential Result Value Ref Range WBC 12.1 (H) 4.0 - 11.0 K/uL RBC 4.69 3.70 - 5.20 M/uL Hemoglobin 14.0 11.5 - 16.0 g/dL Hematocrit 42.5 34.0 - 47.0 % MCV 90.6 83.0 - 101.0 fL MCH 29.9 28.0 - 35.0 pg MCHC 32.9 32.0 - 36.0 g/dL RDW-CV 12.7 <15.0 % RDW-SD 41.4 35.1 - 46.3 fL Platelet Count 261 140 - 440 K/uL MPV 10.2 6.5 - 12.4 fL % Neutrophils 57.7 45.0 - 82.0 % % Lymphocytes 32.8 20.0 - 45.0 % % Monocytes 8.2 4.0 - 12.0 % % Eosinophils 0.3 0.0 - 5.0 % % Basophils 0.4 0.0 - 1.0 % % Immature Granulocytes 0.6 (H) 0.0 - 0.4 % Absolute Neutrophils 6.99 1.80 - 8.50 K/uL Absolute Lymphocytes 3.98 (H) 0.60 - 3.20 K/uL Absolute Monocytes 0.99 0.00 - 1.00 K/uL Absolute Eosinophils 0.04 0.00 - 0.40 K/uL Absolute Basophils 0.05 0.00 - 0.10 K/uL Absolute Immature Granulocytes 0.07 (H) 0.00 - 0.03 K/uL % nRBC 0 0 - 2 per 100 WBC's Absolute nRBC 0.00 0.00 - 0.01 K/uL Basic Metabolic Panel Result Value Ref Range Na 139 136 - 149 mmol/L K 3.9 3.5 - 5.1 mmol/L Cl 107 98 - 109 mmol/L CO2 26 24 - 31 mmol/L Anion Gap 6 3 - 16 mmol/L Glucose 96 70 - 109 mg/dL BUN 19 (H) 7 - 18 mg/dL Creatinine 0.82 0.60 - 1.30 mg/dL eGFR if not >60 >=60 mL/min/1.73m2 Ca 8.4 8.3 - 10.5 mg/dL BUN/Creatinine Ratio 23.2 Lipid Panel Result Value Ref Range Triglycerides 89 35 - 160 mg/dL Cholesterol 199 150 - 200 mg/dL HDL 52 28 - 83 mg/dL Chol/HDL Ratio 3.8 LDL, Calculated 129 <=130 mg/dL Extra Lavender Top Tube Result Value Ref Range Extra Lavender Top Tube Done Reason for Admission: Please refer to the H&P for full details. In short, this is a 57 y.o. female with a histor y of COPD, ongoing smoking, who presented with shortness of breath, cough, COPD exacerbation . Problem-Oriented Hospital Course: COPD with acute exacerbation/acute hypoxic respiratory failure: - Came to the ER because she was coughing up yellow sputum/more short of breath with activi ty and even at rest in the last week - 85% on arrival in the ER with increased work of breathing and tachypnea, indicating acute hypoxic respiratory failure on admission - Started steroids/azithromycin, improved gradually during hospitalization - Continues to need oxygen with exertion, had nocturnal hypoxemia to 88%, exertional hypoxi a to 85%, discharged with 2 liters at night and with exertion - Feels somewhat improved daily, continue prednisone taper - Strongly advised smoking cessation, ordered nicotine patch Right eye vision changes/imbalance/meningioma/microvascular ischemic disease: - Complained of right eye vision changes and imbalance on 04/20, concerned for stroke, CT sh owed no bleeding, no large stroke - MRI/MRA of brain/neck showed no significant obstruction of carotid/vertebral arteries, al so showed no acute stroke - Apparent chronic ischemic microvascular disease, started aspirin, atorvastatin - Some meningiomas (see report), chronic-appearing, should have follow up imaging in 3-6 mo nt - Advised her that smoking can increase risk of stroke, advised cessation Anxiety/depression: - Continue escitalopram Code Status: Full Code Disposition: Home with home health Discharge Condition: Stable Breathing comfortably, no wheezing, mildly diminished breath sounds throughout RRR Abd soft, NT Ext WWP Follow-up Information Scot Anton MD On 04/24/2018. Specialty: Family Medicine Why: This is your hosptial follow up appointment scheduled for 11:45. Please check in at 11:30. Contact information: [address] [facility] [place] [id number] Discharge Medications New Medications Details aspirin 81 mg chewable tablet Take 1 tablet by mouth Daily. Start: 04/22/2018 atorvaSTATin 20 mg tablet Take 1 tablet by mouth nightly. aka: LIPITOR azithromycin 250 mg tablet Take 1 tablet by mouth Daily for 2 days. Indications: copd exacerbation aka: ZITHROMAX Start: 04/22/2018 nicotine 21 mg/[address] 1 patch onto the skin Daily. aka: NICODERM Start: 04/22/2018 Changed Medications Details omeprazole 20 mg capsule take 1 capsule by mouth every morning before BREAKFAST What changed: how much to take how to take this when to take this reasons to take this additional instructions aka: priLOSEC predniSONE 10 mg tablet Take 3 tablets by mouth for 2 days then 2 tablets by mouth for 2 days then stop What changed: additional instructions aka: DELTASONE Unchanged Medications Details albuterol 90 mcg/puff inhaler Inhale 2 puffs into the lungs every 4 hours as needed for Wheezing. atenolol 25 mg tablet take 1 tablet by mouth daily aka: TENORMIN diclofenac 1% Gel Apply 2 g topically 3 times daily as needed for Pain. aka: VOLTAREN hydrOXYzine hydrochloride 25 mg tablet Take 1-2 tablets by mouth every 8 hours as needed for Anxiety. aka: ATARAX LEXAPRO 20 mg tablet Generic drug: escitalopram Take 1 tablet by mouth Daily. To help mood and anxiety Studies With Pending Results: None Greater than 30 minutes were spent on discharge and coordination of post-hospital care. Electronically signed by: Thang Ibarra MD, 04/21/2018 10:56 [facility] documented in this encounter Discharge Instructions Instructions Thang Ibarra MD - 04/21/2018You were admitted with difficulty breathing caused by COPD exacerbation. You need to take 4 more days of prednisone as prescribed, and 2 more days of the antibiotic azithromycin. Take your inhalers as prescribed. The biggest thing you can do for your short-term and long-term health, is to quit smoking, and nicotine patches were prescribed. An MRI showed what appeared to be a history of very small strokes, and you need to take asp irin and atorvastatin to help prevent future strokes. Stopping smoking will also help decre ase your risk of stroke. AttachmentsThe following attachments cannot be sent through Care Everywhere.COPD, Treatment for (German)Pulmonary Rehabilitation Program, What Is (German)Pulmonary Rehabilitation, G enriqueting Started with (German)documented in this encounter Medications at Time of Discharge + + + +---------+ + + | Medication | Sig | Dispensed | Refills | Start | End Date | | | | | | Date | | + + + +---------+ + + | aspirin 81 MG | Take 1 tablet by | 30 | 1 | 04/22/19 | | | tablet | mouth Daily. | tablet | | 19 | | + + + +---------+ + + | albuterol 90 | Inhale 2 puffs into | | 0 | | | | mcg/puff inhaler | the lungs every 4 | | | | 9 | | | hours as needed for | | | | | | | Wheezing. | | | | | + + + +---------+ + + | atenolol | take 1 tablet by | 30 | 0 | 02/09/20 | | | (TENORMIN) 25 mg | mouth daily | tablet | | 18 | 9 | | tablet | | | | | | + + + +---------+ + + | atorvaSTATin | Take 1 tablet by | 30 | 1 | 04/21/19 | | | (LIPITOR) 20 mg | mouth nightly. | tablet | | 19 | 9 | | tablet | | | | | | + + + +---------+ + + | azithromycin | Take 1 tablet by | 2 | 0 | 04/22/19 | | | (ZITHROMAX) 250 mg | mouth Daily for 2 | tablet | | 19 | 9 | | tabletIndications: | days. Indications: | | | | | | copd exacerbation | copd exacerbation | | | | | + + + +---------+ + + | diclofenac | Apply 2 g topically | 100 g | 1 | 03/14/20 | | | (VOLTAREN) 1% | 3 times daily as | | | 18 | 9 | | GELIndications: | needed for Pain. | | | | | | Acute pain of right | | | | | | | shoulder | | | | | | + + + +---------+ + + | hydrOXYzine | Take 1-2 tablets by | 30 | 0 | 01/15/20 | | | hydrochloride | mouth every 8 hours | tablet | | 18 | 9 | | (ATARAX) 25 mg | as needed for | | | | | | tabletIndications: | Anxiety. | | | | | | Anxiety | | | | | | + + + +---------+ + + | LEXAPRO 20 MG | Take 1 tablet by | 30 | 2 | 03/04/20 | | | tabletIndications: | mouth Daily. To help | tablet | | 18 | 9 | | Depression with | mood and anxiety | | | | | | anxiety | | | | | | + + + +---------+ + + | nicotine | Place 1 patch onto | 28 | 0 | 04/22/19 | | | (NICODERM) 21 mg/24 | the skin Daily. | patch | | 19 | 9 | | hr | | | | | | + + + +---------+ + + | omeprazole | take 1 capsule by | 30 | 11 | 02/08/20 | | | (PRILOSEC) 20 mg | mouth every morning | capsule | | 18 | 9 | | capsule | before BREAKFAST | | | | | + + + +---------+ + + | predniSONE | Take 3 tablets by | 10 | 0 | 04/21/19 | | | (DELTASONE) 10 mg | mouth for 2 days | tablet | | 19 | 9 | | tabletIndications: | then 2 tablets by | | | | | | COPD exacerbation | mouth for 2 days | | | | | | (HCC) | then stop | | | | | + + + +---------+ + + documented as of this encounter Progress Notes Thang Ibarra MD - 04/20/2018 5:08 PM PSTFormatting of this note might be different f rom the original. [facility] Hospitalist Progress Note Pepper Hand is a 57 y.o. female ASSESSMENT and PLAN: Active Hospital Problems Diagnosis COPD (chronic obstructive pulmonary disease) Tobacco abuse Cerebral microvascular disease Anxiety Polycythemia secondary to hypoxia Resolved Hospital Problems Diagnosis Date Noted Date Resolved No resolved problems to display. COPD with acute exacerbation/acute hypoxic respiratory failure: - Has been coughing up yellow sputum/more short of breath with activity and even at rest in the last week - 85% on arrival in the ER with increased work of breathing and tachypnea, indicating acute hypoxic respiratory failure on admission - Continues to need oxygen with exertion - Feels somewhat improved daily, continue prednisone/azithromycin - Strongly advised smoking cessation, ordered nicotine patch - Scheduled nebs Right eye vision changes/imbalance: - Concerned for stroke, CT showed no bleeding, no large stroke - MRI/MRA of brain/neck showed no significant obstruction of carotid/vertebral arteries - Apparent chronic ischemic microvascular disease, start aspirin - Some meningiomas (see report), chronic-appearing, should have follow up imaging in 3-6 mo [facility] Anxiety/depression: - Continue escitalopram Disposition : Likely home with oxygen as soon as 04/21 Prophylaxis : enoxaparin SUBJECTIVE: Complained of "a dark spot" in right eye vision, starting in the hospital. Complained of some balance problems today. Has chronic double vision at times (doesn't drive). Breathin g stable, willing to use oxygen at home. 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 Significant results and findings are a ddressed here or in the Assessment and Plan. Recent Results (from the past 24 hour(s)) CBC with Differential Result Value Ref Range WBC 12.1 (H) 4.0 - 11.0 K/uL RBC 4.69 3.70 - 5.20 M/uL Hemoglobin 14.0 11.5 - 16.0 g/dL Hematocrit 42.5 34.0 - 47.0 % MCV 90.6 83.0 - 101.0 fL MCH 29.9 28.0 - 35.0 pg MCHC 32.9 32.0 - 36.0 g/dL RDW-CV 12.7 <15.0 % RDW-SD 41.4 35.1 - 46.3 fL Platelet Count 261 140 - 440 K/uL MPV 10.2 6.5 - 12.4 fL % Neutrophils 57.7 45.0 - 82.0 % % Lymphocytes 32.8 20.0 - 45.0 % % Monocytes 8.2 4.0 - 12.0 % % Eosinophils 0.3 0.0 - 5.0 % % Basophils 0.4 0.0 - 1.0 % % Immature Granulocytes 0.6 (H) 0.0 - 0.4 % Absolute Neutrophils 6.99 1.80 - 8.50 K/uL Absolute Lymphocytes 3.98 (H) 0.60 - 3.20 K/uL Absolute Monocytes 0.99 0.00 - 1.00 K/uL Absolute Eosinophils 0.04 0.00 - 0.40 K/uL Absolute Basophils 0.05 0.00 - 0.10 K/uL Absolute Immature Granulocytes 0.07 (H) 0.00 - 0.03 K/uL % nRBC 0 0 - 2 per 100 WBC's Absolute nRBC 0.00 0.00 - 0.01 K/uL Basic Metabolic Panel Result Value Ref Range Na 139 136 - 149 mmol/L K 3.9 3.5 - 5.1 mmol/L Cl 107 98 - 109 mmol/L CO2 26 24 - 31 mmol/L Anion Gap 6 3 - 16 mmol/L Glucose 96 70 - 109 mg/dL BUN 19 (H) 7 - 18 mg/dL Creatinine 0.82 0.60 - 1.30 mg/dL eGFR if not >60 >=60 mL/min/1.73m2 Ca 8.4 8.3 - 10.5 mg/dL BUN/Creatinine Ratio 23.2 Ct Head Wo Contrast Result Date: 04/20/2018 EXAM: CT HEAD WO CONTRAST dated 04/20/2018 9:48 AM HISTORY: New dizziness, right eye vision changes Comparison: 03/01/[address] TECHNIQUE: Noncontrast CT is performed from the top o f calvarium through the skull base. Coronal and sagittal reformats are performed. DOSE: DLP 536.61 mGy-cm FINDINGS: BRAIN: Ventricles, sulci and cisterns are unremarkable for age. N o areas of increased attenuation to suggest intracranial hemorrhage. There is no mass, mass effect, or midline shift. There are no abnormal extra-axial fluid or air collections. The re is preservation of the [place]-white differentiation at this time. There is no significant white matter disease. Stable small focal hypodensity in the right basal ganglia. This coul d be a lacuna or dilated perivascular space. The right intracranial vertebral artery appear s dense. SCALP/ CALVARIUM: The scalp and skull are intact and are unremarkable. SINUSES / OR BITS/ MASTOIDS: The visible mastoid air cells and paranasal sinuses are clear. The globes a nd retroconal contents are intact and are unremarkable. IMPRESSION - The intracranial right vertebral artery appears dense. It is uncertain if this is real or artifact. Cannot exclud e thrombosis or dissection is this is of concern. No CT evidence for acute parenchymal orozco es. Dictated and Signed by: Dick Becerril MD Electronically signed: 04/20/2018 10:19 AM Mri Angiogram Head Wo Contrast Result Date: 04/20/2018 EXAM: MRI ANGIOGRAM HEAD WO CONTRAST, MRI ANGIOGRAM NECK W WO CONTRAST, MRI BRAIN W WO CONT RAST dated 04/17/2018 12:00 AM HISTORY: Possible stroke, possible vertebral artery occlusion COMPARISON: Head CT performed the same day. TECHNIQUE: Multiplanar multisequence MR imaging of the brain prior to and following the intravenous administration of 10 cc of Gadavist. Po st contrast 3-D subtracted imaging is performed of the neck vasculature. 3-D [id number] imaging is performed through the [place]. MIP reconstructions are performed. Kaci ging is performed on a 3 [place] MRI. FINDINGS: BRAIN MRI: No restricted diffusion to suggest acute or subacute ischemia. No significant cerebral or cerebellar atrophy. There is mild b ilateral white matter disease. Mild white matter disease in the joellen. Hypodensity in the ri ght basal ganglia is probably a dilated perivascular space. There is a homogeneously enhanc ing dural based mass along the right temporal lobe. This measures 1.3 x 1.3 x 0.6 cm. It h as a dural tail. There are no abnormal extra axial fluid collections. Ventricles are normal in size and configuration. No susceptibility weighted artifact to suggest abnormal hemosid moise deposition or mineralization. There is enhancement within the cavernous and dural veno us sinuses consistent with patency. There is an enhancing nodule adjacent to the right cave rnous carotid and traversing optic nerve. It measures 7 x 4 x 4 mm. There are 2 punctate f oci of enhancement along the inferior right frontal lobe. The mastoid air cells are clear. The paranasal sinuses are clear. The globes and retrobulbar structures are symmetric and un remarkable. The posterior nasopharyngeal and visible oropharyngeal soft tissues are unremar kable. [place] MRA: There is flow related signal in the distal portions of the vert ebral arteries. There are patent posterior inferior cerebellar arteries. There is a patent basilar artery. There are patent superior cerebellar arteries.. Patent origin left p osterior cerebral artery. Patent right posterior cerebral artery. Patent right posterior co mmunicating artery. The intracranial internal carotid arteries are widely patent. Ophthalm ic arteries are patent bilaterally. No cerebral arteries are patent bilaterally. Anterior cerebral arteries are patent bilaterally. No aneurysmal dilatation. NECK MRA: There is some motion degradation. Aorta: The visible aortic arch is not aneurysmal. The brachycephalic a rtery is widely patent. The right subclavian and visible axillary arteries are patent. The left subclavian and visible axillary arteries are patent. Right: The right common carotid ar miryam is patent. The right internal carotid artery is widely patent. The origin of the righ t vertebral artery is not well seen due to motion. The right vertebral artery is codominant . It is patent. There is no evidence for vessel dissection or occlusion through its basilar termination. Left: The left common carotid artery is widely patent. The left internal gaitan tid artery is widely patent. The origin of the left vertebral artery is not well studied du e to motion degradation. The left vertebral artery is codominant. It is patent. There is no evidence for vessel dissection or occlusion throughout its basilar termination. IMPRESSIO N - No MRI evidence for an acute intrarenal process. Specifically, no acute or subacute isc hemia. No evidence for intracranial hemorrhage. Mild white matter disease. The pattern is m ost suggestive of chronic microvascular ischemic change. There is a 1.3 cm extra-axial mass adjacent to the right temporal lobe with imaging features most consistent with a meningioma. There is a 7 mm homogeneously enhancing nodule close to the course of the right optic nerve and cavernous carotid artery. It is enhancement pattern and location are suggestive of a n eurogenic tumor or meningioma. It is uncertain if this is contributing to the patient's rep orted right eye symptoms. There are 2 small punctate foci of enhancement along the very infe rior margin of the right frontal lobe. It is uncertain if these are intra-axial or extra-ax ial. These are nonspecific. In this area these could be neurogenic tumors or meningiomas a s well. Widely patent internal carotid arteries and vertebral arteries bilaterally. No evid ence for vertebral artery occlusion or dissection. Recommendation: Follow-up and postcontras t brain MRI in 3-6 months. Dictated and Signed by: Dick Becerril MD Electronically nicky d: 04/20/2018 4:43 PM Mri Angiogram Neck W Wo Contrast Result Date: 04/20/2018 EXAM: MRI ANGIOGRAM HEAD WO CONTRAST, MRI ANGIOGRAM NECK W WO CONTRAST, MRI BRAIN W WO CONT RAST dated 04/17/2018 12:00 AM HISTORY: Possible stroke, possible vertebral artery occlusion COMPARISON: Head CT performed the same day. TECHNIQUE: Multiplanar multisequence MR imaging of the brain prior to and following the intravenous administration of 10 cc of Gadavist. Po [address] contrast 3-D subtracted imaging is performed of the neck vasculature. 3-D [id number]-[id number] imaging is performed through the [place]. MIP reconstructions are performed. Kaci ging is performed on a 3 [place] MRI. FINDINGS: BRAIN MRI: No restricted diffusion to suggest acute or subacute ischemia. No significant cerebral or cerebellar atrophy. There is mild b ilateral white matter disease. Mild white matter disease in the joellen. Hypodensity in the ri ght basal ganglia is probably a dilated perivascular space. There is a homogeneously enhanc ing dural based mass along the right temporal lobe. This measures 1.3 x 1.3 x 0.6 cm. It h as a dural tail. There are no abnormal extra axial fluid collections. Ventricles are normal in size and configuration. No susceptibility weighted artifact to suggest abnormal hemosid moise deposition or mineralization. There is enhancement within the cavernous and dural veno us sinuses consistent with patency. There is an enhancing nodule adjacent to the right cave rnous carotid and traversing optic nerve. It measures 7 x 4 x 4 mm. There are 2 punctate f oci of enhancement along the inferior right frontal lobe. The mastoid air cells are clear. The paranasal sinuses are clear. The globes and retrobulbar structures are symmetric and un remarkable. The posterior nasopharyngeal and visible oropharyngeal soft tissues are unremar kable. [place] MRA: There is flow related signal in the distal portions of the vert ebral arteries. There are patent posterior inferior cerebellar arteries. There is a patent basilar artery. There are patent superior cerebellar arteries.. Patent origin left p osterior cerebral artery. Patent right posterior cerebral artery. Patent right posterior co mmunicating artery. The intracranial internal carotid arteries are widely patent. Ophthalm ic arteries are patent bilaterally. No cerebral arteries are patent bilaterally. Anterior cerebral arteries are patent bilaterally. No aneurysmal dilatation. NECK MRA: There is some motion degradation. Aorta: The visible aortic arch is not aneurysmal. The brachycephalic a rtery is widely patent. The right subclavian and visible axillary arteries are patent. The left subclavian and visible axillary arteries are patent. Right: The right common carotid ar miryam is patent. The right internal carotid artery is widely patent. The origin of the righ t vertebral artery is not well seen due to motion. The right vertebral artery is codominant . It is patent. There is no evidence for vessel dissection or occlusion through its basilar termination. Left: The left common carotid artery is widely patent. The left internal gaitan tid artery is widely patent. The origin of the left vertebral artery is not well studied du e to motion degradation. The left vertebral artery is codominant. It is patent. There is no evidence for vessel dissection or occlusion throughout its basilar termination. IMPRESSIO N - No MRI evidence for an acute intrarenal process. Specifically, no acute or subacute isc hemia. No evidence for intracranial hemorrhage. Mild white matter disease. The pattern is m ost suggestive of chronic microvascular ischemic change. There is a 1.3 cm extra-axial mass adjacent to the right temporal lobe with imaging features most consistent with a meningioma. There is a 7 mm homogeneously enhancing nodule close to the course of the right optic nerve and cavernous carotid artery. It is enhancement pattern and location are suggestive of a n eurogenic tumor or meningioma. It is uncertain if this is contributing to the patient's rep orted right eye symptoms. There are 2 small punctate foci of enhancement along the very infe rior margin of the right frontal lobe. It is uncertain if these are intra-axial or extra-ax ial. These are nonspecific. In this area these could be neurogenic tumors or meningiomas a s well. Widely patent internal carotid arteries and vertebral arteries bilaterally. No evid ence for vertebral artery occlusion or dissection. Recommendation: Follow-up and postcontras t brain MRI in 3-6 months. Dictated and Signed by: Dick Becerril MD Electronically nicky d: 04/20/2018 4:43 PM Mri Brain W Wo Contrast Result Date: 04/20/2018 EXAM: MRI ANGIOGRAM HEAD WO CONTRAST, MRI ANGIOGRAM NECK W WO CONTRAST, MRI BRAIN W WO CONT RAST dated 04/17/2018 12:00 AM HISTORY: Possible stroke, possible vertebral artery occlusion COMPARISON: Head CT performed the same day. TECHNIQUE: Multiplanar multisequence MR imaging of the brain prior to and following the intravenous administration of 10 cc of Gadavist. Po st contrast 3-D subtracted imaging is performed of the neck vasculature. 3-D [id number]-pcrryc imaging is performed through the [place]. MIP reconstructions are performed. Kaci ging is performed on a 3 [place] MRI. FINDINGS: BRAIN MRI: No restricted diffusion to suggest acute or subacute ischemia. No significant cerebral or cerebellar atrophy. There is mild b ilateral white matter disease. Mild white matter disease in the joellen. Hypodensity in the ri ght basal ganglia is probably a dilated perivascular space. There is a homogeneously enhanc ing dural based mass along the right temporal lobe. This measures 1.3 x 1.3 x 0.6 cm. It h as a dural tail. There are no abnormal extra axial fluid collections. Ventricles are normal in size and configuration. No susceptibility weighted artifact to suggest abnormal hemosid moise deposition or mineralization. There is enhancement within the cavernous and dural veno us sinuses consistent with patency. There is an enhancing nodule adjacent to the right cave rnous carotid and traversing optic nerve. It measures 7 x 4 x 4 mm. There are 2 punctate f oci of enhancement along the inferior right frontal lobe. The mastoid air cells are clear. The paranasal sinuses are clear. The globes and retrobulbar structures are symmetric and un remarkable. The posterior nasopharyngeal and visible oropharyngeal soft tissues are unremar kable. [place] MRA: There is flow related signal in the distal portions of the vert ebral arteries. There are patent posterior inferior cerebellar arteries. There is a patent basilar artery. There are patent superior cerebellar arteries.. Patent origin left p osterior cerebral artery. Patent right posterior cerebral artery. Patent right posterior co mmunicating artery. The intracranial internal carotid arteries are widely patent. Ophthalm ic arteries are patent bilaterally. No cerebral arteries are patent bilaterally. Anterior cerebral arteries are patent bilaterally. No aneurysmal dilatation. NECK MRA: There is some motion degradation. Aorta: The visible aortic arch is not aneurysmal. The brachycephalic a rtery is widely patent. The right subclavian and visible axillary arteries are patent. The left subclavian and visible axillary arteries are patent. Right: The right common carotid ar miryam is patent. The right internal carotid artery is widely patent. The origin of the righ t vertebral artery is not well seen due to motion. The right vertebral artery is codominant . It is patent. There is no evidence for vessel dissection or occlusion through its basilar termination. Left: The left common carotid artery is widely patent. The left internal gaitan tid artery is widely patent. The origin of the left vertebral artery is not well studied du e to motion degradation. The left vertebral artery is codominant. It is patent. There is no evidence for vessel dissection or occlusion throughout its basilar termination. IMPRESSIO N - No MRI evidence for an acute intrarenal process. Specifically, no acute or subacute isc hemia. No evidence for intracranial hemorrhage. Mild white matter disease. The pattern is m ost suggestive of chronic microvascular ischemic change. There is a 1.3 cm extra-axial mass adjacent to the right temporal lobe with imaging features most consistent with a meningioma. There is a 7 mm homogeneously enhancing nodule close to the course of the right optic nerve and cavernous carotid artery. It is enhancement pattern and location are suggestive of a n eurogenic tumor or meningioma. It is uncertain if this is contributing to the patient's rep orted right eye symptoms. There are 2 small punctate foci of enhancement along the very infe rior margin of the right frontal lobe. It is uncertain if these are intra-axial or extra-ax ial. These are nonspecific. In this area these could be neurogenic tumors or meningiomas a s well. Widely patent internal carotid arteries and vertebral arteries bilaterally. No evid ence for vertebral artery occlusion or dissection. Recommendation: Follow-up and postcontras t brain MRI in 3-6 months. Dictated and Signed by: Dick Becerril MD Electronically nicky d: 04/20/2018 4:43 PM Current Facility-Administered Medications: acetaminophen 650 mg Oral Q4H PRN albuterol-ipratropium 3 mL Nebulization 4x Daily albuterol-ipratropium 3 mL Nebulization Q2H PRN aspirin 81 mg Oral Daily atenolol 25 mg Oral Daily azithromycin 250 mg Oral Daily docusate sodium 100 mg Oral BID PRN enoxaparin 40 mg Subcutaneous Daily escitalopram 20 mg Oral Daily fluticasone 2 spray Each Nare Daily guaiFENesin-dextromethorphan 10 mL Oral Q4H PRN hydrOXYzine hydrochloride 25-50 mg Oral Q8H PRN nicotine 1 patch Transdermal Daily nicotine 1 patch Transdermal Daily PRN ondansetron 4 mg Oral Q6H PRN pantoprazole 40 mg Oral QAM AC predniSONE 40 mg Oral Daily zolpidem 5 mg Oral Nightly PRN Total time of approximately 25 minutes was spent with the patient and/or patient's family, and/or on the patient's floor/unit, of which more than 50% was spent counseling and/or coord ination the patient's care as outlined above. Thang Ibarra 04/20/2018 17:09 [facility] [place], Felt Machine Mechanic - 04/19/2018 3:46 PM PSTFormatting of this note might be different from t dany original. PHARMACY SERVICES: ADMISSION MEDICATION REVIEW Pepper Hand is a 57 y.o. female admitted on 04/17/2018. Patient is somewhat a reliable historian. Location of Patient when reviewed: ED X Medical Floor Patient s prior to admit medication and over the counter (OTC) medications/herbal supplem ents list obtained from: X Verbal interview X Patient able to recall SOME Name, strength, and directions X Pharmacy list names: [facility] Outside Information Vaccines up to date? Yes No Unsure Influenza X Pneumococcal X Tdap X Shingles X Noted medications discrepancies or medication-related issues: Allergy Alerts: Allergy Added: Reaction: Medication(s) affected: Trazodone Anxiety Removed therapy: Medication: Prior to Admission Sig: Reason for Removal: Fluticasone 220 mcg/puff inhaler 1 puff into the lungs twice daily Therapy complete Loratadine 10 mg tab 1 tab by mouth daily Therapy complete Albuterol 2.5/3 ml neb maxim 3 ml via nebulization every 3 hours as needed for wheezing or s hortness of breath Therapy complete Patient denies use of recreational substances, tobacco or alcohol. Other: Patient states [facility] is having problems is why her medications do not show as recentl y filled Patient told the Med History Tech her PCP does not want her on narcotic drugs Patient states she uses her inhaler more when she feels stressed. While interviewing her she told the Med History Tech she was feeling stressed because serena plasencia couldn't remember her medications and she stated she felt like she needed her inhaler. Medication: Prior to Admission Sig: Patient taking differently CELL STRIPPER as: Atenolol 25 mg tab 1 tab by mouth daily Patient state she is taking. Last filled: 02-08-18 #30 tabs Diclofenac 1% gel Apply 2 grams topically 3 times daily as needed for pain Not using Patient states her insurance won't cover it Hydroxyzine 25 mg tab 1 to 2 tablets by mouth every 8 hours as needed for anxiety Patient states she is taking but it does not work and her doctor doesn't want her to take narcotics so he wont give her anything else Last filled: 01-14-18 #30 tabs Omeprazole 20 mg cap 1 cap by mouth every morning before breakfast 1 tab by mouth daily as needed for acid reflex Albuterol 90 mcg/puff inhaler 2 puffs by mouth every 4 hours as needed for wheezing 3 puf fs by mouth daily as needed she couldn't estimate how many times daily she was using this or the hours In between dos es Best possible CELL STRIPPER medication list after pharmacy review: PT REPORTED TAKING NOT TAKING Medication Sig Last Dose Dispense Doc. Provider albuterol 90 mcg/puff inhaler Inhale 2 puffs into the lungs every 4 hours as needed for Wh eezing. Taking Differently Historical Provider, atenolol (TENORMIN) 25 mg tablet take 1 tablet by mouth daily Taking 30 tablet Scot lawler MD diclofenac (VOLTAREN) 1% GEL Apply 2 g topically 3 times daily as needed for Pain. Patient not taking: Reported on 04/19/2018 Not Taking 100 g Scot Anton MD hydrOXYzine hydrochloride (ATARAX) 25 mg tablet Take 1-2 tablets by mouth every 8 hours as needed for Anxiety. Taking 30 tablet Scot Anton MD LEXAPRO 20 MG tablet Take 1 tablet by mouth Daily. To help mood and anxiety Taking 30 tabl et Scot Anton MD omeprazole (PRILOSEC) 20 mg capsule take 1 capsule by mouth every morning before BREAKFAST Patient taking differently: Take 20 mg by mouth Daily as needed. Taking Differently 30 cap jim Scot Anton MD predniSONE (DELTASONE) 10 mg tablet Take 4 tablets by mouth for 3 days, then take 2 tablet s by mouth for 3 days, then take 1 tablet by mouth for 3 days, then stop Taking 21 tablet Teresa Anton MD Medication review performed and electronically signed by Char Eldridge, Enrollment Representative 2018 14:31 Reviewed by: Mary Garcia, Felt Machine Mechanic 04/19/2018 15:42 Thang Buenrostro MD - 04/19/2018 3:17 PM PSTFormatting of this note might be different from t dany original. [facility]G Hospitalist Progress Note Pepper Hand is a 57 y.o. female ASSESSMENT and PLAN: Active Hospital Problems Diagnosis COPD (chronic obstructive pulmonary disease) Tobacco abuse Anxiety Polycythemia secondary to hypoxia Resolved Hospital Problems Diagnosis Date Noted Date Resolved No resolved problems to display. COPD with acute exacerbation/acute hypoxic respiratory failure: - Has been coughing up yellow sputum/more short of breath with activity and even at rest th e last week - 85% on arrival in the ER with increased work of breathing and tachypnea, indicating acute hypoxic respiratory failure on admission - Continues to need oxygen with exertion - Feels somewhat improved daily, continue prednisone/azithromycin - Strongly advised smoking cessation, ordered nicotine patch - Scheduled nebs Anxiety/depression: - Continue escitalopram Disposition : Likely home when stable Prophylaxis : enoxaparin SUBJECTIVE: Still short of breath with activity, no chest pain, cough continues. Concerned about goi ng home, because her mother smokes and her friend smokes heavily. VITALS: Temp: 36 C (96.8 F), Pulse: 58, Resp: 18, BP: 132/84, SpO2 93 % on room air Temp Min: 36 C (96.8 F) Max: 36.7 C (98 F) Weight: 63.5 kg (140 lb) Intake/Output Summary (Last 24 hours) at 04/19/18 1517 Last data filed at 04/19/18 0443 Gross per 24 hour Intake 1122 ml Output 850 ml Net 272 ml PHYSICAL EXAM: General: Alert, mildly anxious Cardiovascular: RRR Respiratory: Mild wheezing and diminished BS bilaterally, no respiratory distress Abdomen: Soft, NT Extremities: WWP Carrillo catheter present: No DIAGNOSTIC STUDIES: Available data and images were reviewed personally. Significant results and findings are a ddressed here or in the Assessment and Plan. No results found for this or any previous visit (from the past 24 hour(s)). No results found. Current Facility-Administered Medications: acetaminophen 650 mg Oral Q4H PRN albuterol-ipratropium 3 mL Nebulization 4x Daily albuterol-ipratropium 3 mL Nebulization Q2H PRN atenolol 25 mg Oral Daily azithromycin 250 mg Oral Daily docusate sodium 100 mg Oral BID PRN enoxaparin 40 mg Subcutaneous Daily escitalopram 20 mg Oral Daily fluticasone 2 spray Each Nare Daily hydrOXYzine hydrochloride 25-50 mg Oral Q8H PRN nicotine 1 patch Transdermal Daily nicotine 1 patch Transdermal Daily PRN ondansetron 4 mg Oral Q6H PRN pantoprazole 40 mg Oral QAM AC predniSONE 40 mg Oral Daily zolpidem 5 mg Oral Nightly PRN Total time of approximately 25 minutes was spent with the patient and/or patient's family, and/or on the patient's floor/unit, of which more than 50% was spent counseling and/or coord ination the patient's care as outlined above. Thang Ibarra 04/19/2018 15:17 [facility] Marybel Stanley M edical Student - 04/19/2018 10:20 AM PST [facility] PMG Hospitalist Progress Note Pepper Hand is a 57 y.o. female ASSESSMENT and PLAN: Active Hospital Problems Diagnosis COPD (chronic obstructive pulmonary disease) Anxiety Polycythemia secondary to hypoxia Tobacco abuse Resolved Hospital Problems Diagnosis Date Noted Date Resolved No resolved problems to display. COPD - Pt exacerbation brought on by stress, productive cough - doing better on 2Lnc - O2 testing done this AM: Pt okay at rest, needs 2LNC at activity - Continue prednisone and azithromax - Patient agrees to smoking cessation - scheduled Nebs Anxiety - Continue escitalopram Disposition : Home within next day Prophylaxis : Enoxaparin SUBJECTIVE: Patient in good spirits. Would like to go home. Negative CP, nausea, vomiting. Good appet ite. 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 VITALS: Temp: 36 C (96.8 F), Pulse: 52, Resp: 21, BP: 120/78, SpO2 95 % on room air Temp Min: 36 C (96.8 F) Max: 36.7 C (98 F) Weight: 63.5 kg (140 lb) Intake/Output Summary (Last 24 hours) at 04/19/18 1020 Last data filed at 04/19/18 0443 Gross per 24 hour Intake 1362 ml Output 850 ml Net 512 ml PHYSICAL EXAM: General: Alert, oriented, communicative, in no acute distress Cardiovascular: RRR, no murmurs Respiratory: Labored breathing with wheezes, no rales or rhonchi, Extremities: Pulses equal and strong dorsalis pedis and posterior tibialis, no edema Neurological: Oriented, grossly nonfocal Carrillo catheter present: No DIAGNOSTIC STUDIES: Available data and images were reviewed personally. Significant results and findings are a ddressed here or in the Assessment and Plan. No results found for this or any previous visit (from the past 24 hour(s)). Xr Chest Ap Portable Result Date: 04/17/2018 CLINICAL INFORMATION: SHORTNESS OF BREATH. COMPARISON: 01/20/2018. FINDINGS: Portable front al chest radiograph Lungs: Hyperexpansion of the lungs with flattening of the diaphragm. No focal airspace disease, pleural effusion, or pneumothorax. Heart/mediastinum: Cardiac silho uette is of normal size. Central pulmonary vasculature has a normal appearance. Bones: No ac [place] osseous abnormality appreciated. IMPRESSION - No acute disease. Hyperexpansion of the tomasa ngs suggesting obstructive pulmonary disease. Dictated and Signed by: Wilbert Phillips MD El ectronically signed: 04/17/2018 1:23 PM Current Facility-Administered Medications: acetaminophen 650 mg Oral Q4H PRN albuterol-ipratropium 3 mL Nebulization 4x Daily albuterol-ipratropium 3 mL Nebulization Q2H PRN atenolol 25 mg Oral Daily azithromycin 250 mg Oral Daily docusate sodium 100 mg Oral BID PRN enoxaparin 40 mg Subcutaneous Daily escitalopram 20 mg Oral Daily fluticasone 2 spray Each Nare Daily hydrOXYzine hydrochloride 25-50 mg Oral Q8H PRN nicotine 1 patch Transdermal Daily nicotine 1 patch Transdermal Daily PRN ondansetron 4 mg Oral Q6H PRN pantoprazole 40 mg Oral QAM AC predniSONE 40 mg Oral Daily zolpidem 5 mg Oral Nightly PRN Marybel Elena MSIII 04/19/2018 10:20 [facility] Thang Schultz MD - 04/18/2018 6:32 PM PST [facility] PMG Hospitalist Progress Note Pepper Hand is a 57 y.o. female ASSESSMENT and PLAN: Active Hospital Problems Diagnosis COPD (chronic obstructive pulmonary disease) Tobacco abuse Anxiety Polycythemia secondary to hypoxia Resolved Hospital Problems Diagnosis Date Noted Date Resolved No resolved problems to display. COPD with acute exacerbation/acute hypoxic respiratory failure: - Has been coughing up yellow sputum/more short of breath with activity and even at rest th e last week - 85% on arrival in the ER with increased work of breathing and tachypnea, indicating acute hypoxic respiratory failure - Stable on 2 liters today - Feels somewhat better today, continue prednisone/azithromycin - Strongly advised smoking cessation, ordered nicotine patch - Scheduled nebs Anxiety/depression: - Continue escitalopram Disposition : Likely home in the next 1-2 days Prophylaxis : enoxaparin SUBJECTIVE: Feels somewhat better than yesterday, still has cough with yellow sputum. Short of breat h with activity. Feels somewhat anxious. Excellent appetite. VITALS: Temp: 36.7 C (98 F), Pulse: 82, Resp: 20, BP: 116/81, SpO2 94 % on nasal cannula Temp Min: 35.7 C (96.3 F) Max: 37.6 C (99.7 F) Weight: 63.5 kg (140 lb) Intake/Output Summary (Last 24 hours) at 04/18/18 1832 Last data filed at 04/18/18 1619 Gross per 24 hour Intake 1702 ml Output 350 ml Net 1352 ml PHYSICAL EXAM: General: Alert, pleasant, slightly anxious Cardiovascular: RRR Respiratory: Diminished throughout without significant wheezing Abdomen: Soft, NT Extremities: WWP Carrillo catheter present: No DIAGNOSTIC STUDIES: Available data and images were reviewed personally. Significant results and findings are a ddressed here or in the Assessment and Plan. Recent Results (from the past 24 hour(s)) CBC no Differential Result Value Ref Range WBC 15.1 (H) 4.0 - 11.0 K/uL RBC 5.31 (H) 3.70 - 5.20 M/uL Hemoglobin 15.8 11.5 - 16.0 g/dL Hematocrit 47.3 (H) 34.0 - 47.0 % MCV 89.1 83.0 - 101.0 fL MCH 29.8 28.0 - 35.0 pg MCHC 33.4 32.0 - 36.0 g/dL RDW-CV 12.5 <15.0 % RDW-SD 40.8 35.1 - 46.3 fL Platelet Count 337 140 - 440 K/uL MPV 10.3 6.5 - 12.4 fL % nRBC 0 0 - 2 per 100 WBC's Absolute nRBC 0.00 0.00 - 0.01 K/uL Comprehensive Metabolic Panel Result Value Ref Range Na 137 136 - 149 mmol/L K 3.9 3.5 - 5.1 mmol/L Cl 105 98 - 109 mmol/L CO2 23 (L) 24 - 31 mmol/L Anion Gap 9 3 - 16 mmol/L Glucose 125 (H) 70 - 109 mg/dL BUN 13 7 - 18 mg/dL Creatinine 0.73 0.60 - 1.30 mg/dL eGFR if not >60 >=60 mL/min/1.73m2 Ca 9.3 8.3 - 10.5 mg/dL Albumin 3.7 3.2 - 5.0 g/dL Bilirubin Total 0.7 0.1 - 1.5 mg/dL Total Protein 6.4 6.0 - 7.8 g/dL AST 14 10 - 42 U/L ALT 17 6 - 45 U/L Alkaline Phosphatase 67 40 - 110 U/L Globulin 2.7 2.1 - 3.8 g/dL Albumin/Globulin Ratio 1.4 0.8 - 2.0 BUN/Creatinine Ratio 17.8 Magnesium Result Value Ref Range Magnesium 2.1 1.8 - 2.5 mg/dL Xr Chest Ap Portable Result Date: 04/17/2018 CLINICAL INFORMATION: SHORTNESS OF BREATH. COMPARISON: 01/20/2018. FINDINGS: Portable front al chest radiograph Lungs: Hyperexpansion of the lungs with flattening of the diaphragm. No focal airspace disease, pleural effusion, or pneumothorax. Heart/mediastinum: Cardiac silho uette is of normal size. Central pulmonary vasculature has a normal appearance. Bones: No ac [place] osseous abnormality appreciated. IMPRESSION - No acute disease. Hyperexpansion of the tomasa ngs suggesting obstructive pulmonary disease. Dictated and Signed by: Wilbert Phillips MD El ectronically signed: 04/17/2018 1:23 PM Current Facility-Administered Medications: acetaminophen 650 mg Oral Q4H PRN albuterol-ipratropium 3 mL Nebulization 4x Daily albuterol-ipratropium 3 mL Nebulization Q2H PRN atenolol 25 mg Oral Daily azithromycin 250 mg Oral Daily docusate sodium 100 mg Oral BID PRN enoxaparin 40 mg Subcutaneous Daily escitalopram 20 mg Oral Daily fluticasone 2 spray Each Nare Daily hydrOXYzine hydrochloride 25-50 mg Oral Q8H PRN nicotine 1 patch Transdermal Daily nicotine 1 patch Transdermal Daily PRN ondansetron 4 mg Oral Q6H PRN pantoprazole 40 mg Oral QAM AC predniSONE 40 mg Oral Daily zolpidem 5 mg Oral Nightly PRN Total time of approximately 25 minutes was spent with the patient and/or patient's family, and/or on the patient's floor/unit, of which more than 50% was spent counseling and/or coord ination the patient's care as outlined above. Thang Ibarra 04/18/2018 18:32 [facility] Marybel Stanley M edical Student - 04/18/2018 8:07 AM PST [facility] PMG Hospitalist Progress Note Pepper Hand is a 57 y.o. female ASSESSMENT and PLAN: Active Hospital Problems Diagnosis COPD (chronic obstructive pulmonary disease) Anxiety Polycythemia secondary to hypoxia Tobacco abuse Resolved Hospital Problems Diagnosis Date Noted Date Resolved No resolved problems to display. COPD Tobacco use - Exacerbation brought on by stress of living situation - O2 by nasal canula - Duonebs PRN - Azithromycin - Prednisone - RT to follow up - Holding NSAIDs - Smoking cessation advised Anxiety - Emotional exacerbation of chronic conditions - Lexapro continued Polycythemia - Monitor with CBCs Disposition : Waiting RT Prophylaxis : Enoxaparin SUBJECTIVE: Patient exacerbation brought on over months of stress due to living situation. Uncomforta ble, says she couldn't breath so she tried her mothers O2 long enough to get herself to the hospital. Does not feel the O2 is currently helping. "Bronchospasms" making it difficult for her to get good breaths. Positive for mild CP brought on by cough, productive cough, dyspne a. Negative for SNOW, nausea, vomiting, diarrhea. VITALS: Temp: 35.7 C (96.3 F), Pulse: 99, Resp: 22, BP: 128/90, SpO2 90 % on nasal cannula Temp Min: 35.7 C (96.3 F) Max: 37.6 C (99.7 F) Weight: 63.5 kg (140 lb) Intake/Output Summary (Last 24 hours) at 04/18/18 0813 Last data filed at 04/18/18 0400 Gross per 24 hour Intake 760 ml Output 0 ml Net 760 ml PHYSICAL EXAM: General: Alert and communicative, in no acute distress Cardiovascular: RRR, no murmurs Respiratory: Positive for wheezes in all arias, difficult deep breathing Abdomen: Hernia present Extremities: Good pulses, no clubbing, no edema Neurological: Anxious disposition Carrillo catheter present: unknown DIAGNOSTIC STUDIES: Available data and images were reviewed personally. Significant results and findings are a ddressed here or in the Assessment and Plan. Recent Results (from the past 24 hour(s)) CBC with Differential Result Value Ref Range WBC 11.2 (H) 4.0 - 11.0 K/uL RBC 5.59 (H) 3.70 - 5.20 M/uL Hemoglobin 17.0 (H) 11.5 - 16.0 g/dL Hematocrit 49.7 (H) 34.0 - 47.0 % MCV 88.9 83.0 - 101.0 fL MCH 30.4 28.0 - 35.0 pg MCHC 34.2 32.0 - 36.0 g/dL RDW-CV 12.6 <15.0 % RDW-SD 41.0 35.1 - 46.3 fL Platelet Count 367 140 - 440 K/uL MPV 9.9 6.5 - 12.4 fL % Neutrophils 48.3 45.0 - 82.0 % % Lymphocytes 36.4 20.0 - 45.0 % % Monocytes 7.0 4.0 - 12.0 % % Eosinophils 6.3 (H) 0.0 - 5.0 % % Basophils 1.7 (H) 0.0 - 1.0 % % Immature Granulocytes 0.3 0.0 - 0.4 % Absolute Neutrophils 5.41 1.80 - 8.50 K/uL Absolute Lymphocytes 4.08 (H) 0.60 - 3.20 K/uL Absolute Monocytes 0.79 0.00 - 1.00 K/uL Absolute Eosinophils 0.71 (H) 0.00 - 0.40 K/uL Absolute Basophils 0.19 (H) 0.00 - 0.10 K/uL Absolute Immature Granulocytes 0.03 0.00 - 0.03 K/uL % nRBC 0 0 - 2 per 100 WBC's Absolute nRBC 0.00 0.00 - 0.01 K/uL Basic Metabolic Panel Result Value Ref Range Na 138 136 - 149 mmol/L K 3.9 3.5 - 5.1 mmol/L Cl 104 98 - 109 mmol/L CO2 22 (L) 24 - 31 mmol/L Anion Gap 12 3 - 16 mmol/L Glucose 98 70 - 109 mg/dL BUN 8 7 - 18 mg/dL Creatinine 0.80 0.60 - 1.30 mg/dL eGFR if not >60 >=60 mL/min/1.73m2 Ca 9.3 8.3 - 10.5 mg/dL BUN/Creatinine Ratio 10.0 Extra Lavender Top Tube Result Value Ref Range Extra Lavender Top Tube Done Extra Green Top Tube Result Value Ref Range Extra Green Top Tube Done Extra Blue Top Tube Result Value Ref Range Extra Blue Top Tube Done Extra [place] Top Tube Result Value Ref Range Extra [place] Top Tube Done CBC no Differential Result Value Ref Range WBC 15.1 (H) 4.0 - 11.0 K/uL RBC 5.31 (H) 3.70 - 5.20 M/uL Hemoglobin 15.8 11.5 - 16.0 g/dL Hematocrit 47.3 (H) 34.0 - 47.0 % MCV 89.1 83.0 - 101.0 fL MCH 29.8 28.0 - 35.0 pg MCHC 33.4 32.0 - 36.0 g/dL RDW-CV 12.5 <15.0 % RDW-SD 40.8 35.1 - 46.3 fL Platelet Count 337 140 - 440 K/uL MPV 10.3 6.5 - 12.4 fL % nRBC 0 0 - 2 per 100 WBC's Absolute nRBC 0.00 0.00 - 0.01 K/uL Comprehensive Metabolic Panel Result Value Ref Range Na 137 136 - 149 mmol/L K 3.9 3.5 - 5.1 mmol/L Cl 105 98 - 109 mmol/L CO2 23 (L) 24 - 31 mmol/L Anion Gap 9 3 - 16 mmol/L Glucose 125 (H) 70 - 109 mg/dL BUN 13 7 - 18 mg/dL Creatinine 0.73 0.60 - 1.30 mg/dL eGFR if not >60 >=60 mL/min/1.73m2 Ca 9.3 8.3 - 10.5 mg/dL Albumin 3.7 3.2 - 5.0 g/dL Bilirubin Total 0.7 0.1 - 1.5 mg/dL Total Protein 6.4 6.0 - 7.8 g/dL AST 14 10 - 42 U/L ALT 17 6 - 45 U/L Alkaline Phosphatase 67 40 - 110 U/L Globulin 2.7 2.1 - 3.8 g/dL Albumin/Globulin Ratio 1.4 0.8 - 2.0 BUN/Creatinine Ratio 17.8 Magnesium Result Value Ref Range Magnesium 2.1 1.8 - 2.5 mg/dL Xr Chest Ap Portable Result Date: 04/17/2018 CLINICAL INFORMATION: SHORTNESS OF BREATH. COMPARISON: 01/20/2018. FINDINGS: Portable front al chest radiograph Lungs: Hyperexpansion of the lungs with flattening of the diaphragm. No focal airspace disease, pleural effusion, or pneumothorax. Heart/mediastinum: Cardiac silho uette is of normal size. Central pulmonary vasculature has a normal appearance. Bones: No ac [place] osseous abnormality appreciated. IMPRESSION - No acute disease. Hyperexpansion of the tomasa ngs suggesting obstructive pulmonary disease. Dictated and Signed by: Wilbert Phillips MD El ectronically signed: 04/17/2018 1:23 PM Current Facility-Administered Medications: acetaminophen 650 mg Oral Q4H PRN albuterol-ipratropium 3 mL Nebulization 4x Daily albuterol-ipratropium 3 mL Nebulization Q2H PRN atenolol 25 mg Oral Daily [START ON 04/19/2018] azithromycin 250 mg Oral Once per day on Sun docusate sodium 100 mg Oral BID PRN enoxaparin 40 mg Subcutaneous Daily escitalopram 20 mg Oral Daily hydrOXYzine hydrochloride 25-50 mg Oral Q8H PRN nicotine 1 patch Transdermal Daily PRN ondansetron 4 mg Oral Q6H PRN pantoprazole 40 mg Oral QAM AC predniSONE 40 mg Oral Daily zolpidem 5 mg Oral Nightly PRN Total time of approximately () minutes was spent with the patient and/or patient's family, and/or on the patient's floor/unit, of which more than 50% was spent counseling and/or coord ination the patient's care as outlined above. Marybel Plasencia Kassy MSIII 04/18/2018 8:13 [facility] documented in this encounter Plan of Treatment + +------+--------+ + + | Name | Type | Priori | Associated Diagnoses | Order Schedule | | | | ty | | | + +------+--------+ + + | DME: Oxygen Therapy | DME | Routin | COPD exacerbation | Ordered: 04/21/2018 | | | | e | ([facility]) Chronic | | | | | | obstructive | | | | | | pulmonary disease, | | | | | | unspecified COPD | | | | | | type ([facility]) Acute on | | | | | | chronic respiratory | | | | | | failure with | | | | | | hypoxia ([facility]) | | + +------+--------+ + + + + +--------+ + + | Name | Type | Priori | Associated Diagnoses | Order Schedule | | | | ty | | | + + +--------+ + + | Ambulatory Referral | Outpatient | Routin | COPD exacerbation | Ordered: 04/21/2018 | | to Pulmonary Rehab | Referral | e | ([facility]) Chronic | | | | | | obstructive | | | | | | pulmonary disease, | | | | | | unspecified COPD | | | | | | type ([facility]) Acute on | | | | | | chronic respiratory | | | | | | failure with | | | | | | hypoxia ([facility]) | | + + +--------+ + + | Referral to Home | Outpatient | Routin | COPD exacerbation | Ordered: 04/21/2018 | | Health | Referral | e | ([facility]) Acute on | | | | | | chronic respiratory | | | | | | failure with hypoxia | | | | | | ([facility]) | | + + +--------+ + + documented as of this encounter Procedures + +--------+ + + + | Procedure Name | Priori | Date/Time | Associated Diagnosis | Comments | | | ty | | | | + +--------+ + + + | PERFORM HOME O2 | Routin | 04/21/2018 | | | | EVALUATION | e | 10:30 AM | | | | | | PST | | | + +--------+ + + + | LIPID PANEL | Routin | 04/21/2018 | | Results for this | | | e | 5:19 AM | | procedure are in the | | | | PST | | results section. | + +--------+ + + + | EXTRA LAVENDER TOP | Routin | 04/21/2018 | | Results for this | | TUBE | e | 5:19 AM | | procedure are in the | | | | PST | | results section. | + +--------+ + + + | MRI ANGIOGRAM NECK W | [facility] | 04/20/2018 | | Results for this | | WO CONTRAST | | 4:08 PM | | procedure are in the | | | | PST | | results section. | + +--------+ + + + | MRI BRAIN W WO | Routin | 04/20/2018 | | Results for this | | CONTRAST | e | 4:08 PM | | procedure are in the | | | | PST | | results section. | + +--------+ + + + | MRI ANGIOGRAM HEAD | [facility] | 04/20/2018 | | Results for this | | WO CONTRAST | | 3:11 PM | | procedure are in the | | | | PST | | results section. | + +--------+ + + + | CT HEAD WO CONTRAST | [facility] | 04/20/2018 | | Results for this | | | | 10:05 AM | | procedure are in the | | | | PST | | results section. | + +--------+ + + + | CBC WITH | Routin | 04/20/2018 | | Results for this | | DIFFERENTIAL | e | 5:08 AM | | procedure are in the | | | | PST | | results section. | + +--------+ + + + | BASIC METABOLIC | Routin | 04/20/2018 | | Results for this | | PANEL | e | 5:08 AM | | procedure are in the | | | | PST | | results section. | + +--------+ + + + | PERFORM HOME O2 | Routin | 04/19/2018 | | | | EVALUATION | e | 9:12 AM | | | | | | PST | | | + +--------+ + + + | RESPIRATORY THERAPY | Routin | 04/18/2018 | | | | COMMUNICATION | e | 7:57 AM | | | | | | PST | | | + +--------+ + + + | CBC NO DIFFERENTIAL | Routin | 04/18/2018 | | Results for this | | | e | 5:36 AM | | procedure are in the | | | | PST | | results section. | + +--------+ + + + | MAGNESIUM | Routin | 04/18/2018 | | Results for this | | | e | 5:36 AM | | procedure are in the | | | | PST | | results section. | + +--------+ + + + | COMPREHENSIVE | Routin | 04/18/2018 | | Results for this | | METABOLIC PANEL | e | 5:36 AM | | procedure are in the | | | | PST | | results section. | + +--------+ + + + | XR CHEST AP PORTABLE | STAT | 04/17/2018 | | Results for this | | | | 12:30 PM | | procedure are in the | | | | PST | | results section. | + +--------+ + + + | RT PEAK FLOW | Routin | 04/17/2018 | | | | | e | 12:19 PM | | | | | | PST | | | + +--------+ + + + | EXTRA MADRID TOP TUBE | Routin | 04/17/2018 | | Results for this | | | e | 12:03 PM | | procedure are in the | | | | PST | | results section. | + +--------+ + + + | EXTRA LAVENDER TOP | Routin | 04/17/2018 | | Results for this | | TUBE | e | 12:03 PM | | procedure are in the | | | | PST | | results section. | + +--------+ + + + | EXTRA GREEN TOP TUBE | Routin | 04/17/2018 | | Results for this | | | e | 12:03 PM | | procedure are in the | | | | PST | | results section. | + +--------+ + + + | EXTRA BLUE TOP TUBE | Routin | 04/17/2018 | | Results for this | | | e | 12:03 PM | | procedure are in the | | | | PST | | results section. | + +--------+ + + + | CBC WITH | STAT | 04/17/2018 | | Results for this | | DIFFERENTIAL | | 12:00 PM | | procedure are in the | | | | PST | | results section. | + +--------+ + + + | BASIC METABOLIC | STAT | 04/17/2018 | | Results for this | | PANEL | | 12:00 PM | | procedure are in the | | | | PST | | results section. | + +--------+ + + + documented in this encounter Results Extra Lavender Top Tube (04/21/2018 5:19 AM PST) + +-------+ + + + | Component | Value | Ref Range | Performed | Pathologist | | | | | At | Signature | + +-------+ + + + | Extra | Done | | [facility] | | | Lavender | | | [facility] | | | Top Tube | | | MEDICAL | | | [...] [address] | [place] | [phone] | | [facility] | | [id number] | | | - LABORATORY | | | | + + + + + Lipid Panel (04/21/2018 5:19 AM PST) + + + + + + | Component | Value | Ref Range | Performed | Pathologist | | | | | At | Signature | + + + + + + | Triglycerid | 89 | 35 - 160 mg/dL | [facility] | | | es | | | [facility] | | | | | | [facility] | | | | | | [facility] - | | | | | | LABORATORY | | + + + + + + | Cholesterol | 199 | 150 - 200 mg/dL | [facility] | | | | | | [facility] | | | | | | [facility] | | | | | | [facility] - | | | | | | LABORATORY | | + + + + + + | HDL | 52Comment: New HDL | 28 - 83 mg/dL | [facility] | | | | Reference Range as of | | [facility] | | | | December 03, 2014 | | MEDICAL | | | | Values may be 10-20% | | CENTER - | | | | lower with new, | | LABORATORY | | | | standardized method. | | | | + + + + + + | Chol/HDL | 3.8 | | [facility] | | | Ratio | | | [facility] | | | | | | [facility] | | | | | | [facility] - | | | | | | LABORATORY | | + + + + + + | LDL, | 129 | <=130 mg/dL | [facility] | | | Calculated | | | [...] + | [facility] | [address] | [place] | [phone] | | [facility] | | [id number] | | | - LABORATORY | | | | + + + + + MRI Angiogram Neck w wo Contrast (04/20/2018 4:08 PM PST) + + | Specimen | + + | | + + + + + | Narrative | Performed At | + + + | EXAM: MRI ANGIOGRAM HEAD WO CONTRAST, MRI ANGIOGRAM NECK W WO | [facility] | | CONTRAST, MRI BRAIN W WO CONTRAST dated 04/17/2018 12:00 AM | | | HISTORY: Possible stroke, possible vertebral artery occlusion | | | COMPARISON: Head CT performed the same day. TECHNIQUE: Multiplanar | | | multisequence MR imaging of the brain prior to and following the | | | intravenous administration of 10 cc of Gadavist. Post contrast 3-D | | | subtracted imaging is performed of the neck vasculature. 3-D | | | edgy-es-tjbari imaging is performed through the [facility] [place]. | | | MIP reconstructions are performed. Imaging is performed on a 3 | | | [facility] MRI. FINDINGS: BRAIN MRI: No restricted diffusion | | | to suggest acute or subacute ischemia. No significant cerebral or | | | cerebellar atrophy. There is mild bilateral white matter disease. | | | Mild white matter disease in the joellen. Hypodensity in the right | | | basal ganglia is probably a dilated perivascular space. There is a | | | homogeneously enhancing dural based mass along the right temporal | | | lobe. This measures 1.3 x 1.3 x 0.6 cm. It has a dural tail. | | | There are no abnormal extra axial fluid collections. Ventricles | | | are normal in size and configuration. No susceptibility weighted | | | artifact to suggest abnormal hemosiderin deposition or mineralization. | | | There is enhancement within the cavernous and dural venous sinuses | | | consistent with patency. There is an enhancing nodule adjacent to | | | the right cavernous carotid and traversing optic nerve. It measures | | | 7 x 4 x 4 mm. There are 2 punctate foci of enhancement along the | | | inferior right frontal lobe. The mastoid air cells are clear. | | | The paranasal sinuses are clear. The globes and retrobulbar | | | structures are symmetric and unremarkable. The posterior | | | nasopharyngeal and visible oropharyngeal soft tissues are | | | unremarkable. [place] MRA: There is flow related | | | signal in the distal portions of the vertebral arteries. There are | | | patent posterior inferior cerebellar arteries. There is a patent | | | basilar artery. There are patent superior cerebellar arteries.. | | | Patent origin left posterior cerebral artery. Patent right | | | posterior cerebral artery. Patent right posterior communicating | | | artery. The intracranial internal carotid arteries are widely | | | patent. Ophthalmic arteries are patent bilaterally. No cerebral | | | arteries are patent bilaterally. Anterior cerebral arteries are | | | patent bilaterally. No aneurysmal dilatation. NECK MRA: | | | There is some motion degradation. Aorta: The visible aortic arch | | | is not aneurysmal. The brachycephalic artery is widely patent. | | | The right subclavian and visible axillary arteries are patent. The | | | left subclavian and visible axillary arteries are patent. Right: | | | The right common carotid artery is patent. The right internal | | | carotid artery is widely patent. The origin of the right vertebral | | | artery is not well seen due to motion. The right vertebral artery | | | is codominant. It is patent. There is no evidence for vessel | | | dissection or occlusion through its basilar termination. Left: | | | The left common carotid artery is widely patent. The left internal | | | carotid artery is widely patent. The origin of the left vertebral | | | artery is not well studied due to motion degradation. The left | | | vertebral artery is codominant. It is patent. There is no | | | evidence for vessel dissection or occlusion throughout its basilar | | | termination. IMPRESSION - No MRI evidence for an acute | | | intrarenal process. Specifically, no acute or subacute ischemia. | | | No evidence for intracranial hemorrhage. Mild white matter | | | disease. The pattern is most suggestive of chronic microvascular | | | ischemic change. There is a 1.3 cm extra-axial mass adjacent to | | | the right temporal lobe with imaging features most consistent with a | | | meningioma. There is a 7 mm homogeneously enhancing nodule close | | | to the course of the right optic nerve and cavernous carotid artery. | | | It is enhancement pattern and location are suggestive of a | | | neurogenic tumor or meningioma. It is uncertain if this is | | | contributing to the patient's reported right eye symptoms. There | | | are 2 small punctate foci of enhancement along the very inferior | | | margin of the right frontal lobe. It is uncertain if these are | | | intra-axial or extra-axial. These are nonspecific. In this area | | | these could be neurogenic tumors or meningiomas as well. Widely | | | patent internal carotid arteries and vertebral arteries bilaterally. | | | No evidence for vertebral artery occlusion or dissection. | | | Recommendation: Follow-up and postcontrast brain MRI in 3-6 months. | | | Dictated and Signed by: Dick Becerril MD Electronically | | | signed: 04/20/2018 4:43 PM | | + + + + + | Procedure Note | + + | Jhoan, Rad Results In - 04/20/2018 4:46 PM PST EXAM: MRI ANGIOGRAM HEAD WO CONTRAST, | | MRI ANGIOGRAM NECK W WO CONTRAST, MRIBRAIN W WO CONTRAST dated 04/17/2018 12:00 | | AMHISTORY: Possible stroke, possible vertebral artery occlusionCOMPARISON: Head CT | | performed the same day.TECHNIQUE: Multiplanar multisequence MR imaging of the brain | | prior to andfollowing the intravenous administration of 10 cc of Gadavist. Post contrast | | 3-Dsubtracted imaging is performed of the neck vasculature. 3-D dgzn-kb-dgqweiirnsaob | | is performed through the [facility] [place]. MIP reconstructions areperformed. Imaging | | is performed on a 3 [facility] MRI.FINDINGS: BRAIN MRI:No restricted diffusion to suggest | | acute or subacute ischemia. No significantcerebral or cerebellar atrophy. There is | | mild bilateral white matter disease. Mild white matter disease in the joellen. Hypodensity | | in the right basal gangliais probably a dilated perivascular space. There is a | | homogeneously enhancingdural based mass along the right temporal lobe. This measures | | 1.3 x 1.3 x 0.6cm. It has a dural tail. There are no abnormal extra axial fluid | | collections. Ventricles are normal in size and configuration. No susceptibility | | weightedartifact to suggest abnormal hemosiderin deposition or mineralization. There | | isenhancement within the cavernous and dural venous sinuses consistent withpatency. | | There is an enhancing nodule adjacent to the right cavernous carotidand traversing optic | | nerve. It measures 7 x 4 x 4 mm. There are 2 punctatefoci of enhancement along the | | inferior right frontal lobe.The mastoid air cells are clear. The paranasal sinuses are | | clear. The globesand retrobulbar structures are symmetric and unremarkable. The | | posteriornasopharyngeal and visible oropharyngeal soft tissues are unremarkable.[place] | | [place] MRA:There is flow related signal in the distal portions of the vertebral | | arteries. There are patent posterior inferior cerebellar arteries. There is a | | patentbasilar artery. There are patent superior cerebellar arteries.. Patent | | fetalorigin left posterior cerebral artery. Patent right posterior cerebral artery. | | Patent right posterior communicating artery. The intracranial internal carotidarteries | | are widely patent. Ophthalmic arteries are patent bilaterally. Nocerebral arteries are | | patent bilaterally. Anterior cerebral arteries are patentbilaterally. No aneurysmal | | dilatation.NECK MRA:There is some motion degradation.Aorta: The visible aortic arch is | | not aneurysmal. The brachycephalic artery iswidely patent. The right subclavian and | | visible axillary arteries are patent. The left subclavian and visible axillary arteries | | are patent.Right: The right common carotid artery is patent. The right internal | | carotidartery is widely patent. The origin of the right vertebral artery is not | | wellseen due to motion. The right vertebral artery is codominant. It is patent. There | | is no evidence for vessel dissection or occlusion through its basilartermination.Left: | | The left common carotid artery is widely patent. The left internalcarotid artery is | | widely patent. The origin of the left vertebral artery is notwell studied due to motion | | degradation. The left vertebral artery iscodominant. It is patent. There is no | | evidence for vessel dissection orocclusion throughout its basilar termination.IMPRESSION | | -No MRI evidence for an acute intrarenal process. Specifically, no acute orsubacute | | ischemia.No evidence for intracranial hemorrhage.Mild white matter disease. The pattern | | is most suggestive of chronicmicrovascular ischemic change.There is a 1.3 cm | | extra-axial mass adjacent to the right temporal lobe withimaging features most | | consistent with a meningioma.There is a 7 mm homogeneously enhancing nodule close to the | | course of the rightoptic nerve and cavernous carotid artery. It is enhancement pattern | | andlocation are suggestive of a neurogenic tumor or meningioma. It is uncertain ifthis | | is contributing to the patient's reported right eye symptoms.There are 2 small punctate | | foci of enhancement along the very inferior margin ofthe right frontal lobe. It is | | uncertain if these are intra-axial orextra-axial. These are nonspecific. In this area | | these could be neurogenictumors or meningiomas as well.Widely patent internal carotid | | arteries and vertebral arteries bilaterally. Noevidence for vertebral artery occlusion | | or dissection.Recommendation: Follow-up and postcontrast brain MRI in 3-6 | | months.Dictated and Signed by: Dick Becerril MD Electronically signed: 04/20/2018 | | 4:43 PM | |artery is widely patent. The origin of the right vertebral artery is not well | |seen due to motion. The right vertebral artery is codominant. It is patent. | |There is no evidence for vessel dissection or occlusion through its basilar | |termination. | | | |Left: The left common carotid artery is widely patent. The left internal | |carotid artery is widely patent. The origin of the left vertebral artery is not | |well studied due to motion degradation. The left vertebral artery is | |codominant. It is patent. There is no evidence for vessel dissection or | |occlusion throughout its basilar termination. | | | |IMPRESSION - | | | |No MRI evidence for an acute intrarenal process. Specifically, no acute or | |subacute ischemia. | | | |No evidence for intracranial hemorrhage. | | | |Mild white matter disease. The pattern is most suggestive of chronic | |microvascular ischemic change. | | | |There is a 1.3 cm extra-axial mass adjacent to the right temporal lobe with | |imaging features most consistent with a meningioma. | | | |There is a 7 mm homogeneously enhancing nodule close to the course of the right | |optic nerve and cavernous carotid artery. It is enhancement pattern and | |location are suggestive of a neurogenic tumor or meningioma. It is uncertain if | |this is contributing to the patient's reported right eye symptoms. | | | |There are 2 small punctate foci of enhancement along the very inferior margin of | |the right frontal lobe. It is uncertain if these are intra-axial or | |extra-axial. These are nonspecific. In this area these could be neurogenic | |tumors or meningiomas as well. | | | |Widely patent internal carotid arteries and vertebral arteries bilaterally. No | |evidence for vertebral artery occlusion or dissection. | | | |Recommendation: Follow-up and postcontrast brain MRI in 3-6 months. | | | |Dictated and Signed by: Dick Becerril MD | | Electronically signed: 04/20/2018 4:43 PM | + + + +---------+ + + | Performing | Address | City/State/Zipcode | Phone Number | | Organization | | | | + +---------+ + + | [facility] | | | | + +---------+ + + MRI Brain w wo Contrast (04/20/2018 4:08 PM PST) + + | Specimen | + + | | + + + + + | Narrative | Performed At | + + + | EXAM: MRI ANGIOGRAM HEAD WO CONTRAST, MRI ANGIOGRAM NECK W WO | [facility] | | CONTRAST, MRI BRAIN W WO CONTRAST dated 04/17/2018 12:00 AM | | | HISTORY: Possible stroke, possible vertebral artery occlusion | | | COMPARISON: Head CT performed the same day. TECHNIQUE: Multiplanar | | | multisequence MR imaging of the brain prior to and following the | | | intravenous administration of 10 cc of Gadavist. Post contrast 3-D | | | subtracted imaging is performed of the neck vasculature. 3-D | | | cjfd-um-gkqiwz imaging is performed through the [facility] [place]. | | | MIP reconstructions are performed. Imaging is performed on a 3 | | | [facility] MRI. FINDINGS: BRAIN MRI: No restricted diffusion | | | to suggest acute or subacute ischemia. No significant cerebral or | | | cerebellar atrophy. There is mild bilateral white matter disease. | | | Mild white matter disease in the joellen. Hypodensity in the right | | | basal ganglia is probably a dilated perivascular space. There is a | | | homogeneously enhancing dural based mass along the right temporal | | | lobe. This measures 1.3 x 1.3 x 0.6 cm. It has a dural tail. | | | There are no abnormal extra axial fluid collections. Ventricles | | | are normal in size and configuration. No susceptibility weighted | | | artifact to suggest abnormal hemosiderin deposition or mineralization. | | | There is enhancement within the cavernous and dural venous sinuses | | | consistent with patency. There is an enhancing nodule adjacent to | | | the right cavernous carotid and traversing optic nerve. It measures | | | 7 x 4 x 4 mm. There are 2 punctate foci of enhancement along the | | | inferior right frontal lobe. The mastoid air cells are clear. | | | The paranasal sinuses are clear. The globes and retrobulbar | | | structures are symmetric and unremarkable. The posterior | | | nasopharyngeal and visible oropharyngeal soft tissues are | | | unremarkable. [place] MRA: There is flow related | | | signal in the distal portions of the vertebral arteries. There are | | | patent posterior inferior cerebellar arteries. There is a patent | | | basilar artery. There are patent superior cerebellar arteries.. | | | Patent origin left posterior cerebral artery. Patent right | | | posterior cerebral artery. Patent right posterior communicating | | | artery. The intracranial internal carotid arteries are widely | | | patent. Ophthalmic arteries are patent bilaterally. No cerebral | | | arteries are patent bilaterally. Anterior cerebral arteries are | | | patent bilaterally. No aneurysmal dilatation. NECK MRA: | | | There is some motion degradation. Aorta: The visible aortic arch | | | is not aneurysmal. The brachycephalic artery is widely patent. | | | The right subclavian and visible axillary arteries are patent. The | | | left subclavian and visible axillary arteries are patent. Right: | | | The right common carotid artery is patent. The right internal | | | carotid artery is widely patent. The origin of the right vertebral | | | artery is not well seen due to motion. The right vertebral artery | | | is codominant. It is patent. There is no evidence for vessel | | | dissection or occlusion through its basilar termination. Left: | | | The left common carotid artery is widely patent. The left internal | | | carotid artery is widely patent. The origin of the left vertebral | | | artery is not well studied due to motion degradation. The left | | | vertebral artery is codominant. It is patent. There is no | | | evidence for vessel dissection or occlusion throughout its basilar | | | termination. IMPRESSION - No MRI evidence for an acute | | | intrarenal process. Specifically, no acute or subacute ischemia. | | | No evidence for intracranial hemorrhage. Mild white matter | | | disease. The pattern is most suggestive of chronic microvascular | | | ischemic change. There is a 1.3 cm extra-axial mass adjacent to | | | the right temporal lobe with imaging features most consistent with a | | | meningioma. There is a 7 mm homogeneously enhancing nodule close | | | to the course of the right optic nerve and cavernous carotid artery. | | | It is enhancement pattern and location are suggestive of a | | | neurogenic tumor or meningioma. It is uncertain if this is | | | contributing to the patient's reported right eye symptoms. There | | | are 2 small punctate foci of enhancement along the very inferior | | | margin of the right frontal lobe. It is uncertain if these are | | | intra-axial or extra-axial. These are nonspecific. In this area | | | these could be neurogenic tumors or meningiomas as well. Widely | | | patent internal carotid arteries and vertebral arteries bilaterally. | | | No evidence for vertebral artery occlusion or dissection. | | | Recommendation: Follow-up and postcontrast brain MRI in 3-6 months. | | | Dictated and Signed by: Dick T Buratto, MD Electronically | | | signed: 04/20/2018 4:43 PM | | + + + + + | Procedure Note | + + | Jhoan, Rad Results In - 04/20/2018 4:46 PM PST EXAM: MRI ANGIOGRAM HEAD WO CONTRAST, | | MRI ANGIOGRAM NECK W WO CONTRAST, MRIBRAIN W WO CONTRAST dated 04/17/2018 12:00 | | AMHISTORY: Possible stroke, possible vertebral artery occlusionCOMPARISON: Head CT | | performed the same day.TECHNIQUE: Multiplanar multisequence MR imaging of the brain | | prior to andfollowing the intravenous administration of 10 cc of Gadavist. Post contrast | | 3-Dsubtracted imaging is performed of the neck vasculature. 3-D [id number]-xe-kpmfgqpftubqk | | is performed through the [facility] [place]. MIP reconstructions areperformed. Imaging | | is performed on a 3 [facility] MRI.FINDINGS: BRAIN MRI:No restricted diffusion to suggest | | acute or subacute ischemia. No significantcerebral or cerebellar atrophy. There is | | mild bilateral white matter disease. Mild white matter disease in the joellen. Hypodensity | | in the right basal gangliais probably a dilated perivascular space. There is a | | homogeneously enhancingdural based mass along the right temporal lobe. This measures | | 1.3 x 1.3 x 0.6cm. It has a dural tail. There are no abnormal extra axial fluid | | collections. Ventricles are normal in size and configuration. No susceptibility | | weightedartifact to suggest abnormal hemosiderin deposition or mineralization. There | | isenhancement within the cavernous and dural venous sinuses consistent withpatency. | | There is an enhancing nodule adjacent to the right cavernous carotidand traversing optic | | nerve. It measures 7 x 4 x 4 mm. There are 2 punctatefoci of enhancement along the | | inferior right frontal lobe.The mastoid air cells are clear. The paranasal sinuses are | | clear. The globesand retrobulbar structures are symmetric and unremarkable. The | | posteriornasopharyngeal and visible oropharyngeal soft tissues are unremarkable.[facility] | | [facility] [place] MRA:There is flow related signal in the distal portions of the vertebral | | arteries. There are patent posterior inferior cerebellar arteries. There is a | | patentbasilar artery. There are patent superior cerebellar arteries.. Patent | | fetalorigin left posterior cerebral artery. Patent right posterior cerebral artery. | | Patent right posterior communicating artery. The intracranial internal carotidarteries | | are widely patent. Ophthalmic arteries are patent bilaterally. Nocerebral arteries are | | patent bilaterally. Anterior cerebral arteries are patentbilaterally. No aneurysmal | | dilatation.NECK MRA:There is some motion degradation.Aorta: The visible aortic arch is | | not aneurysmal. The brachycephalic artery iswidely patent. The right subclavian and | | visible axillary arteries are patent. The left subclavian and visible axillary arteries | | are patent.Right: The right common carotid artery is patent. The right internal | | carotidartery is widely patent. The origin of the right vertebral artery is not | | wellseen due to motion. The right vertebral artery is codominant. It is patent. There | | is no evidence for vessel dissection or occlusion through its basilartermination.Left: | | The left common carotid artery is widely patent. The left internalcarotid artery is | | widely patent. The origin of the left vertebral artery is notwell studied due to motion | | degradation. The left vertebral artery iscodominant. It is patent. There is no | | evidence for vessel dissection orocclusion throughout its basilar termination.IMPRESSION | | -No MRI evidence for an acute intrarenal process. Specifically, no acute orsubacute | | ischemia.No evidence for intracranial hemorrhage.Mild white matter disease. The pattern | | is most suggestive of chronicmicrovascular ischemic change.There is a 1.3 cm | | extra-axial mass adjacent to the right temporal lobe withimaging features most | | consistent with a meningioma.There is a 7 mm homogeneously enhancing nodule close to the | | course of the rightoptic nerve and cavernous carotid artery. It is enhancement pattern | | andlocation are suggestive of a neurogenic tumor or meningioma. It is uncertain ifthis | | is contributing to the patient's reported right eye symptoms.There are 2 small punctate | | foci of enhancement along the very inferior margin ofthe right frontal lobe. It is | | uncertain if these are intra-axial orextra-axial. These are nonspecific. In this area | | these could be neurogenictumors or meningiomas as well.Widely patent internal carotid | | arteries and vertebral arteries bilaterally. Noevidence for vertebral artery occlusion | | or dissection.Recommendation: Follow-up and postcontrast brain MRI in 3-6 | | months.Dictated and Signed by: Dick Becerril MD Electronically signed: 04/20/2018 | | 4:43 PM | |artery is widely patent. The origin of the right vertebral artery is not well | |seen due to motion. The right vertebral artery is codominant. It is patent. | |There is no evidence for vessel dissection or occlusion through its basilar | |termination. | | | |Left: The left common carotid artery is widely patent. The left internal | |carotid artery is widely patent. The origin of the left vertebral artery is not | |well studied due to motion degradation. The left vertebral artery is | |codominant. It is patent. There is no evidence for vessel dissection or | |occlusion throughout its basilar termination. | | | |IMPRESSION - | | | |No MRI evidence for an acute intrarenal process. Specifically, no acute or | |subacute ischemia. | | | |No evidence for intracranial hemorrhage. | | | |Mild white matter disease. The pattern is most suggestive of chronic | |microvascular ischemic change. | | | |There is a 1.3 cm extra-axial mass adjacent to the right temporal lobe with | |imaging features most consistent with a meningioma. | | | |There is a 7 mm homogeneously enhancing nodule close to the course of the right | |optic nerve and cavernous carotid artery. It is enhancement pattern and | |location are suggestive of a neurogenic tumor or meningioma. It is uncertain if | |this is contributing to the patient's reported right eye symptoms. | | | |There are 2 small punctate foci of enhancement along the very inferior margin of | |the right frontal lobe. It is uncertain if these are intra-axial or | |extra-axial. These are nonspecific. In this area these could be neurogenic | |tumors or meningiomas as well. | | | |Widely patent internal carotid arteries and vertebral arteries bilaterally. No | |evidence for vertebral artery occlusion or dissection. | | | |Recommendation: Follow-up and postcontrast brain MRI in 3-6 months. | | | |Dictated and Signed by: Dick Becerril MD | | Electronically signed: 04/20/2018 4:43 PM | + + + +---------+ + + | Performing | Address | City/State/Zipcode | Phone Number | | Organization | | | | + +---------+ + + | [facility] | | | | + +---------+ + + MRI Angiogram Head wo Contrast (04/20/2018 3:11 PM PST) + + | Specimen | + + | | + + + + + | Narrative | Performed At | + + + | EXAM: MRI ANGIOGRAM HEAD WO CONTRAST, MRI ANGIOGRAM NECK W WO | [facility] | | CONTRAST, MRI BRAIN W WO CONTRAST dated 04/17/2018 12:00 AM | | | HISTORY: Possible stroke, possible vertebral artery occlusion | | | COMPARISON: Head CT performed the same day. TECHNIQUE: Multiplanar | | | multisequence MR imaging of the brain prior to and following the | | | intravenous administration of 10 cc of Gadavist. Post contrast 3-D | | | subtracted imaging is performed of the neck vasculature. 3-D | | | qodq-gn-pvqqzl imaging is performed through the [facility] [place]. | | | MIP reconstructions are performed. Imaging is performed on a 3 | | | [facility] MRI. FINDINGS: BRAIN MRI: No restricted diffusion | | | to suggest acute or subacute ischemia. No significant cerebral or | | | cerebellar atrophy. There is mild bilateral white matter disease. | | | Mild white matter disease in the joellen. Hypodensity in the right | | | basal ganglia is probably a dilated perivascular space. There is a | | | homogeneously enhancing dural based mass along the right temporal | | | lobe. This measures 1.3 x 1.3 x 0.6 cm. It has a dural tail. | | | There are no abnormal extra axial fluid collections. Ventricles | | | are normal in size and configuration. No susceptibility weighted | | | artifact to suggest abnormal hemosiderin deposition or mineralization. | | | There is enhancement within the cavernous and dural venous sinuses | | | consistent with patency. There is an enhancing nodule adjacent to | | | the right cavernous carotid and traversing optic nerve. It measures | | | 7 x 4 x 4 mm. There are 2 punctate foci of enhancement along the | | | inferior right frontal lobe. The mastoid air cells are clear. | | | The paranasal sinuses are clear. The globes and retrobulbar | | | structures are symmetric and unremarkable. The posterior | | | nasopharyngeal and visible oropharyngeal soft tissues are | | | unremarkable. [facility] [place] MRA: There is flow related | | | signal in the distal portions of the vertebral arteries. There are | | | patent posterior inferior cerebellar arteries. There is a patent | | | basilar artery. There are patent superior cerebellar arteries.. | | | Patent origin left posterior cerebral artery. Patent right | | | posterior cerebral artery. Patent right posterior communicating | | | artery. The intracranial internal carotid arteries are widely | | | patent. Ophthalmic arteries are patent bilaterally. No cerebral | | | arteries are patent bilaterally. Anterior cerebral arteries are | | | patent bilaterally. No aneurysmal dilatation. NECK MRA: | | | There is some motion degradation. Aorta: The visible aortic arch | | | is not aneurysmal. The brachycephalic artery is widely patent. | | | The right subclavian and visible axillary arteries are patent. The | | | left subclavian and visible axillary arteries are patent. Right: | | | The right common carotid artery is patent. The right internal | | | carotid artery is widely patent. The origin of the right vertebral | | | artery is not well seen due to motion. The right vertebral artery | | | is codominant. It is patent. There is no evidence for vessel | | | dissection or occlusion through its basilar termination. Left: | | | The left common carotid artery is widely patent. The left internal | | | carotid artery is widely patent. The origin of the left vertebral | | | artery is not well studied due to motion degradation. The left | | | vertebral artery is codominant. It is patent. There is no | | | evidence for vessel dissection or occlusion throughout its basilar | | | termination. IMPRESSION - No MRI evidence for an acute | | | intrarenal process. Specifically, no acute or subacute ischemia. | | | No evidence for intracranial hemorrhage. Mild white matter | | | disease. The pattern is most suggestive of chronic microvascular | | | ischemic change. There is a 1.3 cm extra-axial mass adjacent to | | | the right temporal lobe with imaging features most consistent with a | | | meningioma. There is a 7 mm homogeneously enhancing nodule close | | | to the course of the right optic nerve and cavernous carotid artery. | | | It is enhancement pattern and location are suggestive of a | | | neurogenic tumor or meningioma. It is uncertain if this is | | | contributing to the patient's reported right eye symptoms. There | | | are 2 small punctate foci of enhancement along the very inferior | | | margin of the right frontal lobe. It is uncertain if these are | | | intra-axial or extra-axial. These are nonspecific. In this area | | | these could be neurogenic tumors or meningiomas as well. Widely | | | patent internal carotid arteries and vertebral arteries bilaterally. | | | No evidence for vertebral artery occlusion or dissection. | | | Recommendation: Follow-up and postcontrast brain MRI in 3-6 months. | | | Dictated and Signed by: Dick Becerril MD Electronically | | | signed: 04/20/2018 4:43 PM | | + + + + + | Procedure Note | + + | Jhoan, Rad Results In - 04/20/2018 4:46 PM PST EXAM: MRI ANGIOGRAM HEAD WO CONTRAST, | | MRI ANGIOGRAM NECK W WO CONTRAST, MRIBRAIN W WO CONTRAST dated 04/17/2018 12:00 | | AMHISTORY: Possible stroke, possible vertebral artery occlusionCOMPARISON: Head CT | | performed the same day.TECHNIQUE: Multiplanar multisequence MR imaging of the brain | | prior to andfollowing the intravenous administration of 10 cc of Gadavist. Post contrast | | 3-Dsubtracted imaging is performed of the neck vasculature. 3-D ihal-fv-yqhfaifhsrjqx | | is performed through the [facility] [place]. MIP reconstructions areperformed. Imaging | | is performed on a 3 [facility] MRI.FINDINGS: BRAIN MRI:No restricted diffusion to suggest | | acute or subacute ischemia. No significantcerebral or cerebellar atrophy. There is | | mild bilateral white matter disease. Mild white matter disease in the joellen. Hypodensity | | in the right basal gangliais probably a dilated perivascular space. There is a | | homogeneously enhancingdural based mass along the right temporal lobe. This measures | | 1.3 x 1.3 x 0.6cm. It has a dural tail. There are no abnormal extra axial fluid | | collections. Ventricles are normal in size and configuration. No susceptibility | | weightedartifact to suggest abnormal hemosiderin deposition or mineralization. There | | isenhancement within the cavernous and dural venous sinuses consistent withpatency. | | There is an enhancing nodule adjacent to the right cavernous carotidand traversing optic | | nerve. It measures 7 x 4 x 4 mm. There are 2 punctatefoci of enhancement along the | | inferior right frontal lobe.The mastoid air cells are clear. The paranasal sinuses are | | clear. The globesand retrobulbar structures are symmetric and unremarkable. The | | posteriornasopharyngeal and visible oropharyngeal soft tissues are unremarkable.[facility] | | [place] MRA:There is flow related signal in the distal portions of the vertebral | | arteries. There are patent posterior inferior cerebellar arteries. There is a | | patentbasilar artery. There are patent superior cerebellar arteries.. Patent | | fetalorigin left posterior cerebral artery. Patent right posterior cerebral artery. | | Patent right posterior communicating artery. The intracranial internal carotidarteries | | are widely patent. Ophthalmic arteries are patent bilaterally. Nocerebral arteries are | | patent bilaterally. Anterior cerebral arteries are patentbilaterally. No aneurysmal | | dilatation.NECK MRA:There is some motion degradation.Aorta: The visible aortic arch is | | not aneurysmal. The brachycephalic artery iswidely patent. The right subclavian and | | visible axillary arteries are patent. The left subclavian and visible axillary arteries | | are patent.Right: The right common carotid artery is patent. The right internal | | carotidartery is widely patent. The origin of the right vertebral artery is not | | wellseen due to motion. The right vertebral artery is codominant. It is patent. There | | is no evidence for vessel dissection or occlusion through its basilartermination.Left: | | The left common carotid artery is widely patent. The left internalcarotid artery is | | widely patent. The origin of the left vertebral artery is notwell studied due to motion | | degradation. The left vertebral artery iscodominant. It is patent. There is no | | evidence for vessel dissection orocclusion throughout its basilar termination.IMPRESSION | | -No MRI evidence for an acute intrarenal process. Specifically, no acute orsubacute | | ischemia.No evidence for intracranial hemorrhage.Mild white matter disease. The pattern | | is most suggestive of chronicmicrovascular ischemic change.There is a 1.3 cm | | extra-axial mass adjacent to the right temporal lobe withimaging features most | | consistent with a meningioma.There is a 7 mm homogeneously enhancing nodule close to the | | course of the rightoptic nerve and cavernous carotid artery. It is enhancement pattern | | andlocation are suggestive of a neurogenic tumor or meningioma. It is uncertain ifthis | | is contributing to the patient's reported right eye symptoms.There are 2 small punctate | | foci of enhancement along the very inferior margin ofthe right frontal lobe. It is | | uncertain if these are intra-axial orextra-axial. These are nonspecific. In this area | | these could be neurogenictumors or meningiomas as well.Widely patent internal carotid | | arteries and vertebral arteries bilaterally. Noevidence for vertebral artery occlusion | | or dissection.Recommendation: Follow-up and postcontrast brain MRI in 3-6 | | months.Dictated and Signed by: Dick Becerril MD Electronically signed: 04/20/2018 | | 4:43 PM | |artery is widely patent. The origin of the right vertebral artery is not well | |seen due to motion. The right vertebral artery is codominant. It is patent. | |There is no evidence for vessel dissection or occlusion through its basilar | |termination. | | | |Left: The left common carotid artery is widely patent. The left internal | |carotid artery is widely patent. The origin of the left vertebral artery is not | |well studied due to motion degradation. The left vertebral artery is | |codominant. It is patent. There is no evidence for vessel dissection or | |occlusion throughout its basilar termination. | | | |IMPRESSION - | | | |No MRI evidence for an acute intrarenal process. Specifically, no acute or | |subacute ischemia. | | | |No evidence for intracranial hemorrhage. | | | |Mild white matter disease. The pattern is most suggestive of chronic | |microvascular ischemic change. | | | |There is a 1.3 cm extra-axial mass adjacent to the right temporal lobe with | |imaging features most consistent with a meningioma. | | | |There is a 7 mm homogeneously enhancing nodule close to the course of the right | |optic nerve and cavernous carotid artery. It is enhancement pattern and | |location are suggestive of a neurogenic tumor or meningioma. It is uncertain if | |this is contributing to the patient's reported right eye symptoms. | | | |There are 2 small punctate foci of enhancement along the very inferior margin of | |the right frontal lobe. It is uncertain if these are intra-axial or | |extra-axial. These are nonspecific. In this area these could be neurogenic | |tumors or meningiomas as well. | | | |Widely patent internal carotid arteries and vertebral arteries bilaterally. No | |evidence for vertebral artery occlusion or dissection. | | | |Recommendation: Follow-up and postcontrast brain MRI in 3-6 months. | | | |Dictated and Signed by: Dick Becerril MD | | Electronically signed: 04/20/2018 4:43 PM | + + + +---------+ + + | Performing | Address | City/State/Zipcode | Phone Number | | Organization | | | | + +---------+ + + | [facility] | | | | + +---------+ + + CT Head wo Contrast (04/20/2018 10:05 AM PST) + + | Specimen | + + | | + + + + + | Narrative | Performed At | + + + | EXAM: CT HEAD WO CONTRAST dated 04/20/2018 9:48 AM HISTORY: New | [facility] | | dizziness, right eye vision changes Comparison: 03/01/[address] | | | TECHNIQUE: Noncontrast CT is performed from the top of calvarium | | | through the skull base. Coronal and sagittal reformats are | | | performed. DOSE: DLP 536.61 mGy-cm FINDINGS: BRAIN: | | | Ventricles, sulci and cisterns are unremarkable for age. No areas of | | | increased attenuation to suggest intracranial hemorrhage. There is | | | no mass, mass effect, or midline shift. There are no abnormal | | | extra-axial fluid or air collections. There is preservation of the | | | [place]-white differentiation at this time. There is no significant | | | white matter disease. Stable small focal hypodensity in the right | | | basal ganglia. This could be a lacuna or dilated perivascular | | | space. The right intracranial vertebral artery appears dense. | | | SCALP/ CALVARIUM: The scalp and skull are intact and are unremarkable. | | | SINUSES / ORBITS/ MASTOIDS: The visible mastoid air cells and | | | paranasal sinuses are clear. The globes and retroconal contents are | | | intact and are unremarkable. IMPRESSION - The intracranial | | | right vertebral artery appears dense. It is uncertain if this is | | | real or artifact. Cannot exclude thrombosis or dissection is this is | | | of concern. No CT evidence for acute parenchymal changes. | | | Dictated and Signed by: Dick Becerril MD Electronically | | | signed: 04/20/2018 10:19 AM | | + + + + + | Procedure Note | + + | Husam Staples Results In - 04/20/2018 10:22 AM PST EXAM: CT HEAD WO CONTRAST dated | | 04/20/2018 9:48 AMHISTORY: New dizziness, right eye vision changesComparison: 03/01/2010 | | head CTTECHNIQUE: Noncontrast CT is performed from the top of calvarium through theskull | | base. Coronal and sagittal reformats are performed.DOSE: DLP 536.61 mGy-cmFINDINGS: | | BRAIN: Ventricles, sulci and cisterns are unremarkable for age. No areas ofincreased | | attenuation to suggest intracranial hemorrhage. There is no mass,mass effect, or | | midline shift. There are no abnormal extra-axial fluid or aircollections. There is | | preservation of the [place]-white differentiation at thistime. There is no significant | | white matter disease. Stable small focalhypodensity in the right basal ganglia. This | | could be a lacuna or dilatedperivascular space. The right intracranial vertebral artery | | appears dense.SCALP/ CALVARIUM: The scalp and skull are intact and are | | unremarkable.SINUSES / ORBITS/ MASTOIDS: The visible mastoid air cells and paranasal | | sinusesare clear. The globes and retroconal contents are intact and are | | unremarkable.IMPRESSION -The intracranial right vertebral artery appears dense. It is | | uncertain if thisis real or artifact. Cannot exclude thrombosis or dissection is this | | is ofconcern.No CT evidence for acute parenchymal changes.Dictated and Signed by: Dick | | Bridget Becerril MD Electronically signed: 04/20/2018 10:19 AM | |time. There is no significant white matter disease. Stable small focal | |hypodensity in the right basal ganglia. This could be a lacuna or dilated | |perivascular space. The right intracranial vertebral artery appears dense. | | | |SCALP/ CALVARIUM: The scalp and skull are intact and are unremarkable. | | | |SINUSES / ORBITS/ MASTOIDS: The visible mastoid air cells and paranasal sinuses | |are clear. The globes and retroconal contents are intact and are unremarkable. | | | |IMPRESSION - | | | |The intracranial right vertebral artery appears dense. It is uncertain if this | |is real or artifact. Cannot exclude thrombosis or dissection is this is of | |concern. | | | |No CT evidence for acute parenchymal changes. | | | | | | | |Dictated and Signed by: Dick Becerril MD | | Electronically signed: 04/20/2018 10:19 AM | + + + +---------+ + + | Performing | Address | City/State/Zipcode | Phone Number | | Organization | | | | + +---------+ + + | [facility] | | | | + +---------+ + + Basic Metabolic Panel (04/20/2018 5:08 AM PST) + + + + + + | Component | Value | Ref Range | Performed | Pathologist | | | | | At | Signature | + + + + + + | Na | 139 | 136 - 149 | [facility] | | | | | mmol/L | [facility] | | | [facility] | | [facility] | | | | | | [facility] - | | | | | | LABORATORY | | + + + + + + | K | 3.9 | 3.5 - 5.1 | [facility] | [...] + + + + | Glucose | 96 | 70 - 109 mg/dL | [facility] | | | | | | [facility] | [facility] | [facility] | | | | | | [facility] - | | | | | | LABORATORY | | + + + + + + | BUN | 19 (H) | 7 - 18 mg/dL | [facility] | | | | [...] mL/min/1.73m2 | [facility] | | | [facility] | [facility] | | [facility] | | | | mL/min/1.88j7Iyvw than | | CENTER - | | [...] + + + + | Calcium | 8.4 | 8.3 - 10.5 | [facility] | | | | | mg/dL | [facility] | | | | | | [facility] | | | | | | [facility] - | | | | | | LABORATORY | | + + + + + + | BUN/Creatin | 23.2 | | [facility] | | | ine Ratio | | | [facility] | | | | | | [...] [address] | [place] | [phone] | | [facility] | | [id number] | | | - LABORATORY | | | | + + + + + CBC with Differential (04/20/2018 5:08 AM PST) + + + + + + | Component | Value | Ref Range | Performed | Pathologist | | | | | At | Signature | + + + + + + | WBC | 12.1 (H) | 4.0 - 11.0 K/uL | [facility] | | | | [facility] | | | | | | [facility] - | | | | | | [facility]ATORY | | + + + + + + | RBC | 4.69 | 3.70 - 5.20 | [facility] | | | | | M/uL | [facility] | | | | | | [facility] - | | | | | | LABORATORY | | + + + + + + | Hemoglobin | 14.0 | 11.5 - 16.0 | [facility] | | | | | g/dL | [facility] | | | | | | [facility] | | | | | | [facility] - | | | | | | LABORATORY | | + + + + + + | Hematocrit | 42.5 | 34.0 - 47.0 % | [facility] | | | | | | [facility] | | [facility] | | [facility] | | | | | | [facility] - | | | | | | LABORATORY | | + + + + + + | MCV | 90.6 | 83.0 - 101.0 fL | [facility] | | | | | | [facility] | [facility] | [facility] | | | | | | [facility] - | | | | | | LABORATORY | | + + + + + + | MCH | 29.9 | 28.0 - 35.0 pg | [facility] | | | | | | [facility] | [facility] | | [facility] | | | | | | [facility] - | | | | | | LABORATORY | | + + + + + + | MCHC | 32.9 | 32.0 - 36.0 | [facility] | | | | | g/dL | [facility] | | | | | | [facility] | | | | | | [facility] - | | | | | | LABORATORY | | + + + + + + | RDW-CV | 12.7 | <15.0 % | [facility] | | | | | | [facility] | [facility] | | [facility] | | | | | | [facility] - | | | | | | LABORATORY | | + + + + + + | RDW-SD | 41.4 | 35.1 - 46.3 fL | [facility] | | | | [...] + + + + | MPV | 10.2 | 6.5 - 12.4 fL | [facility] | | | | | | [facility] | | | [facility] | | [facility] | | | | | | [facility] - | | | | | | LAB[facility]ATORY | | + + + + + + | % | 57.7 | 45.0 - 82.0 % | [facility] | | | Neutrophils | | | [facility] | | | | | | [facility] | | | | | | [facility] - | | | | | | LABORATORY | | + + + + + + | % | 32.8 | 20.0 - 45.0 % | [facility] | | | Lymphocytes | | | [facility] | | | | | | [facility] | | | | | | [facility] - | | | | | | LABORATORY | | + + + + + + | % Monocytes | 8.2 | 4.0 - 12.0 % | [facility] [...] + + + + + | % Immature | 0.6 (H)Comment: | 0.0 - 0.4 % | [facility] | | | Granulocyte | Preliminary studIes have | | [facility] | | | s | indicated the IG% | | MEDICAL | | | | and/or IG# show promise | | CENTER - | | | | as an early screen for | | LABORATORY | | | | infection. | | | | + + + + + + | Absolute | 6.99 | 1.80 - 8.50 | [facility] | | | Neutrophils | | K/uL | [facility] | | | | | | MEDICAL | | | | | | CENTER - | | | | | | LABORATORY | | + + + + + + | Absolute | 3.98 (H) | 0.60 - 3.20 | [facility] | | | Lymphocytes | | K/uL | [facility] | | | | | | MEDICAL | | | | | | CENTER - | | | | | | LABORATORY | | + + + + + + | Absolute | 0.99 | 0.00 - 1.00 | [facility] | | | Monocytes | | K/uL | [facility] | | | | | | [facility]ICAL | | | | | | CENTER - | | | | | | LABORATORY | | + + + + + + | Absolute | 0.04 | 0.00 - 0.40 | [facility] | | | Eosinophils | | K/uL | [facility] | | | | | | MEDICAL | | | | | | CENTER - | | | | | | LABORATORY | | + + + + + + | Absolute | 0.05 | 0.00 - 0.10 | [facility] | | | Basophils | | K/uL | [facility] | | | | | | MEDICAL | | | | | | CENTER - | | | | | | LABORATORY | | + + + + + + | Absolute | 0.07 (H) | 0.00 - 0.03 | [facility] | | | Immature | | K/uL | [facility] | | | Granulocyte | | | MEDICAL | | | s | | | CENTER - | | | | | | LABORATORY | | + + + + + + | % nRBC | 0 | 0 - 2 per 100 | [facility] | | | | | WBC's | [facility] | | | | | | MEDICAL | | | | | | CENTER - | | | | | | LABORATORY | | + + + + + + | Absolute | 0.00 | 0.00 - 0.01 | [facility] | | | nRBC | | K/uL | [facility] | | | | | | [...] [address] | [place] | [phone] | | [facility] | | [address] | | | - LABORATORY | | | | + + + + + Magnesium (04/18/2018 5:36 AM PST) + +-------+ + + + | Component [...] + | [facility] | [address] | [place] | [phone] | | [facility] | | [address] | | | - LABORATORY | | | | + + + + + Comprehensive Metabolic Panel (04/18/2018 5:36 AM PST) + + + + + + | [...] + + + + | K | 3.9 | 3.5 - 5.1 | [facility] | | | | | mmol/L | [facility] | | | | | | MEDICAL | | | | | | CENTER - | | | | | | LABORATORY | | + + + + + + | Cl | 105 | 98 - 109 mmol/L | [facility] | | | | | | [facility] | | | | | | MEDICAL | | | | | | CENTER - | | | | | | LABORATORY | | + + + + + + | CO2 | 23 (L) | 24 - 31 mmol/L | [facility] [...] + + + + | Glucose | 125 (H) | 70 - 109 mg/dL | [...] + + + + | Creatinine | 0.73 | 0.60 - 1.30 | [facility] | [...] mL/min/1.73m2 | [facility] | | | [place] | RATE,ESTIMATED | | MEDICAL | | | | mL/min/1.85n8Ibcq than | | CENTER - | | [...] + + + + | Calcium | 9.3 | 8.3 - 10.5 | [facility] | | | | | mg/dL | [facility] | | | | | | [facility] | | | | | | CENTER - | | | | | | LABORATORY | | + + + + + + | Albumin | 3.7 | 3.2 - 5.0 g/dL | [facility] | | | | | | [facility] | | | | | | [facility] | | | | | | C[facility] - | | | | | | LABORATORY | | + + + + + + | Bilirubin | 0.7 | 0.1 - 1.5 mg/dL | [facility] | | | Total | | | [facility] | | | | | | MEDICAL | | | | | | CENTER - | | | | | | LABORATORY | | + + + + + + | Total | 6.4 | 6.0 - 7.8 g/dL | [facility] | | | Protein | | | [facility] | | | | | | MEDICAL | | | | | | CENTER - | | | | | | LABORATORY | | + + + + + + | AST | 14 | 10 - 42 U/L | [facility] | | | | | | [facility] | | | | | | MEDICAL | | | | | | CENTER - | | | | | | LABORATORY | | + + + + + + | ALT | 17 | 6 - 45 U/L | [facility] | | | | | | [facility] | | | | | | MEDICAL | | | | | | CENTER - | | | | | | LABORATORY | | + + + + + + | Alkaline | 67 | 40 - 110 U/L | [facility] | | | Phosphatase | | | [facility] | | | | | | MEDICAL | | | | | | CENTER - | | | | | | LABORATORY | | + + + + + + | Globulin | 2.7 | 2.1 - 3.8 g/dL | [facility] [...] | bulin Ratio | | | [facility] | | | | | | MEDICAL | | | | | | CENTER - | | | | | | LABORATORY | | + + + + + + | BUN/Creatin | 17.8 | | [facility] | | | ine [...] [address] | [place] | [phone] | | [facility] | | [address] | | | - LABORATORY | | | | + + + + + CBC no Differential (04/18/2018 5:36 AM PST) + + + + + + | Component | Value | Ref Range | Performed | Pathologist | | | | | At | Signature | + + + + + + | WBC | 15.1 (H) | 4.0 - 11.0 K/uL | [facility] | | | | | | [facility] | | | | | | MEDICAL | | | | | | CENTER - | | | | | | LABORATORY | | + + + + + + | RBC | 5.31 (H) | 3.70 - 5.20 | [facility] | | | | | M/uL | [facility] | | | | | | MEDICAL | | | | | | CENTER - | | | | | | LABORATORY | | + + + + + + | Hemoglobin | 15.8 | 11.5 - 16.0 | [facility] | | | | | g/dL | [facility] | | | | | | MEDICAL | | | | | | CENTER - | | | | | | LABORATORY | | + + + + + + | Hematocrit | 47.3 (H) | 34.0 - 47.0 % | [facility] | | | | | | [facility] | | | | | | MEDICAL | | | | | | CENTER - | | | | | | LABORATORY | | + + + + + + | MCV | 89.1 | 83.0 - 101.0 fL | [facility] | | | | | | [facility] | | | | | | MEDICAL | | | | | | CENTER - | | | | | | LABORATORY | | + + + + + + | MCH | 29.8 | 28.0 - 35.0 pg | [facility] | | | | | | [facility] | | | | | | MEDICAL | | | | | | CENTER - | | | | | | LABORATORY | | + + + + + + | MCHC | 33.4 | 32.0 - 36.0 | [facility] | | | | | g/dL | [facility] | | | | | | MEDICAL | | | | | | CENTER - | | | | | | LABORATORY | | + + + + + + | RDW-CV | 12.5 | <15.0 % | [facility] | | | | | | [facility] | | | [facility] | | MEDICAL | | | | | | CENTER - | | | | | | LABORATORY | | + + + + + + | RDW-SD | 40.8 | 35.1 - 46.3 fL | [facility] | | | | | | [facility] | | | | | | MEDICAL | | | | | | CENTER - | | | | | | LABORATORY | | + + + + + + | Platelet | 337 | 140 - 440 K/uL | [facility] | | | Count | | | [facility] | | | | | | MEDICAL | | | | | | CENTER - | | | | | | LABORATORY | | + + + + + + | MPV | 10.3 | 6.5 - 12.4 fL | [facility] | | | | | | [facility] | | | | | | MEDICAL | | | | | | CENTER - | | | | | | LABORATORY | | + + + + + + | % nRBC | 0 | 0 - 2 per 100 | [facility] | | | | | WBC's | [facility] | | | | | | MEDICAL | | | | | | CENTER - | | | | | | LABORATORY | | + + + + + + | Absolute | 0.00 | 0.00 - 0.01 | [facility] | | | nRBC | | K/uL | [facility] | [...] ST. | [address] | [place], [place] | [phone] | | [facility] | | [address] | | | - LABORATORY | | | | + + + + + XR Chest AP Portable (04/17/2018 12:30 PM PST) + + | Specimen | + + | | + + + + + | Narrative | Performed At | + + + | CLINICAL INFORMATION: SHORTNESS OF BREATH. COMPARISON: | [facility] | | 01/20/2018. FINDINGS: Portable frontal chest radiograph | | | Lungs: Hyperexpansion of the lungs with flattening of the diaphragm. | | | No focal airspace disease, pleural effusion, or pneumothorax. | | | Heart/mediastinum: Cardiac silhouette is of normal size. Central | | | pulmonary vasculature has a normal appearance. Bones: No acute | | | osseous abnormality appreciated. IMPRESSION - No acute disease. | | | Hyperexpansion of the lungs suggesting obstructive pulmonary | | | disease. Dictated and Signed by: Wilbert Phillips MD | | | Electronically signed: 04/17/2018 1:23 PM | | + + + + + | Procedure Note | + + | Jhoan, Rad Results In - 04/17/2018 1:26 PM PST | | CLINICAL INFORMATION: SHORTNESS OF BREATH. | | | | COMPARISON: 01/20/2018. | | | | FINDINGS: | | Portable frontal chest radiograph | | | | Lungs: Hyperexpansion of the lungs with flattening of the diaphragm. No focal | | airspace disease, pleural effusion, or pneumothorax. | | | | Heart/mediastinum: Cardiac silhouette is of normal size. Central pulmonary | | vasculature has a normal appearance. | | | | Bones: No acute osseous abnormality appreciated. | | | | IMPRESSION - | | No acute disease. | | | | Hyperexpansion of the lungs suggesting obstructive pulmonary disease. | | | | Dictated and Signed by: Wilbert Phillips MD | | Electronically signed: 04/17/2018 1:23 PM | + + + +---------+ + + | Performing | Address | City/State/Zipcode | Phone Number | | Organization | | | | + +---------+ + + | [facility] | | | | + +---------+ + + Extra Madrid Top Tube (04/17/2018 12:03 PM PST) + +-------+ + + + | Component | Value | Ref Range | Performed | Pathologist | | | | | At | Signature | + +-------+ + + + | Extra [place] | Done | | [facility] | | | Top Tube | | | [facility] | | | | | | [...] [address] | [place] | [phone] | | [facility] | | [address] | | | - LABORATORY | | | | + + + + + Extra Blue Top Tube (04/17/2018 12:03 PM PST) + +-------+ + + + | Component | Value | Ref Range | Performed | Pathologist | | | | | At | Signature | + +-------+ + + + | Extra Blue | Done | | [facility] | | | Top Tube | | | [facility] | | [...] + | [facility] | [address] | [place] | [phone] | | [facility] | | [address] | | | - LABORATORY | | | | + + + + + Extra Green Top Tube (04/17/2018 12:03 PM PST) + +-------+ + + + | Component | Value | Ref Range | Performed | Pathologist | | | | | At | Signature | + +-------+ + + + | Extra Green | Done | | [facility] | | | Top Tube | | | [facility] | | | | | | [...] + | [facility] | [address] | [place] | [phone] | | [facility] | | [address] | | | - LABORATORY | | | | + + + + + Extra Lavender Top Tube (04/17/2018 12:03 PM PST) + +-------+ + + + | Component | Value | Ref Range | Performed | Pathologist | | | | | At | Signature | + +-------+ + + + | Extra | Done | | [facility] | | | Lavender | | | [facility] | | | Top Tube | | | MEDICAL | | | [...] [address] | [place] | [phone] | | [facility] | | [address] | | | - LABORATORY | | | | + + + + + Basic Metabolic Panel (04/17/2018 12:00 PM PST) + + + + + + | Component | Value | Ref Range | Performed | Pathologist | | | | | At | Signature | + + + + + + | Na | 138 | 136 - 149 | [facility] | | | | | mmol/L | [facility] | | | | | | MEDICAL | | | | | | CENTER - | | | | | | LABORATORY | | + + + + + + | K | 3.9 | 3.5 - 5.1 | [facility] | | | | | mmol/L | [facility] | | | | | | MEDICAL | | | | | | CENTER - | | | | | | LABORATORY | | + + + + + + | Cl | 104 | 98 - 109 mmol/L | [facility] | | | | | | [facility] | | | | | | MEDICAL | | | | | | CENTER - | | | | | | LABORATORY | | + + + + + + | CO2 | 22 (L) | 24 - 31 mmol/L | [facility] | | | | | | [facility] | | | | | | MEDICAL | | | | | | CENTER - | | | | | | LABORATORY | | + + + + + + | Anion Gap | 12 | 3 - 16 mmol/L | [facility] | | | | | | [facility] | | | | | | MEDICAL | | | | | | CENTER - | | | | | | LABORATORY | | + + + + + + | Glucose | 98Comment: This is an | 70 - 109 mg/dL | [facility] | | | | appended report. These | | [facility] | | | | results have been | | MEDICAL | | | | appended to a previously | | CENTER - | | | | preliminary verified | | LABORATORY | | | | report. | | | | + + + + + + | BUN | 8 | 7 - 18 mg/dL | [facility] | | | | | | [facility] | | | | | | MEDICAL | | | | | | CENTER - | | | | | | LABORATORY | | + + + + + + | Creatinine | 0.80Comment: This is an | 0.60 - 1.30 | [facility] | | | | appended report. These | mg/dL | [facility] | | | | results have been [...] | | | FILTRATION | mL/min/1.73m2 | [facility] | | | [place] | RATE,ESTIMATED | | MEDICAL | | | | mL/min/1.35r2Cenm than | | CENTER - | | [...] 1.21. | | | | | | This is an appended | | | | | | report. These results | | | | | | have been appended to a | | | | | | previously preliminary | | | | | | verified report. | | | | + + + + + + | Calcium | 9.3 | 8.3 - 10.5 | [facility] | | | | | mg/dL | [facility] | | | | | | MEDICAL | | | | | | CENTER - | | | | | | LABORATORY | | + + + + + + | BUN/Creatin | 10.0Comment: This is an | | [facility] | | | ine Ratio | appended report. These | | [facility] | | | | results have been [...] + | [facility] | [address] | [place] | [phone] | | [facility] | | [address] | | | - LABORATORY | | | | + + + + + CBC with Differential (04/17/2018 12:00 PM PST) + + + + + + | Component | Value | Ref Range | Performed | Pathologist | | | | | At | Signature | + + + + + + | WBC | 11.2 (H) | 4.0 - 11.0 K/uL | [facility] | | | | | | [facility] | | | | | | MEDICAL | | | | | | CENTER - | | | | | | LABORATORY | | + + + + + + | RBC | 5.59 (H) | 3.70 - 5.20 | [facility] | | | | | M/uL | [facility] | | | | | | MEDICAL | | | | | | CENTER - | | | | | | LABORATORY | | + + + + + + | Hemoglobin | 17.0 (H) | 11.5 - 16.0 | [facility] | | | | | g/dL | [facility] | | | | | | MEDICAL | | | | | | CENTER - | | | | | | LABORATORY | | + + + + + + | Hematocrit | 49.7 (H) | 34.0 - 47.0 % | [facility] | | | | | | [facility] | | | | | | MEDICAL | | | | | | CENTER - | | | | | | LABORATORY | | + + + + + + | MCV | 88.9 | 83.0 - 101.0 fL | [facility] | | | | | | [facility] | | | | | | MEDICAL | | | | | | CENTER - | | | | | | LABORATORY | | + + + + + + | MCH | 30.4 | 28.0 - 35.0 pg | [facility] | | | | | | [facility] | | | | | | MEDICAL | | | | | | CENTER - | | | | | | LABORATORY | | + + + + + + | MCHC | 34.2 | 32.0 - 36.0 | [facility] | | | | | g/dL | [facility] | | | | | | MEDICAL | | | | | | CENTER - | | | | | | LABORATORY | | + + + + + + | RDW-CV | 12.6 | <15.0 % | [facility] | | | | | | [facility] | | | | | | MEDICAL | | | | | | CENTER - | | | | | | LABORATORY | | + + + + + + | RDW-SD | 41.0 | 35.1 - 46.3 fL | [facility] | | | | | | [facility] | | | | | | MEDICAL | | | | | | CENTER - | | | | | | LABORATORY | | + + + + + + | Platelet | 367 | 140 - 440 K/uL | [facility] | | | Count | | | [facility] | | | | | | MEDICAL | | | | | | CENTER - | | | | | | LABORATORY | | + + + + + + | MPV | 9.9 | 6.5 - 12.4 fL | [facility] | | | | | | [facility] | | | | | | MEDICAL | | | | | | CENTER - | | | | | | LABORATORY | | + + + + + + | % | 48.3 | 45.0 - 82.0 % | [facility] | | | Neutrophils | | | [facility] | | | | | | MEDICAL | | | | | | CENTER - | | | | | | LABORATORY | | + + + + + + | % | 36.4 | 20.0 - 45.0 % | [facility] | | | Lymphocytes | | | [facility] | | | | | | MEDICAL | | | | | | CENTER - | | | | | | LABORATORY | | + + + + + + | % Monocytes | 7.0 | 4.0 - 12.0 % | [facility] | | | | | | [facility] | | | | | | MEDICAL | | | | | | CENTER - | | | | | | LABORATORY | | + + + + + + | % | 6.3 (H) | 0.0 - 5.0 % | [facility] | | | Eosinophils | | | [facility] | | | | | | MEDICAL | | | | | | CENTER - | | | | | | LABORATORY | | + + + + + + | % Basophils | 1.7 (H) | 0.0 - 1.0 % | [facility] | | | | | | [facility] | | | | | | MEDICAL | | | | | | CENTER - | | | | | | LABORATORY | | + + + + + + | % Immature | 0.3 | 0.0 - 0.4 % | [facility] | | | Granulocyte | | | [facility] | | | s | | | MEDICAL | | | | | | CENTER - | | | | | | LABORATORY | | + + + + + + | Absolute | 5.41 | 1.80 - 8.50 | [facility] | | | Neutrophils | | K/uL | [facility] | | | | | | MEDICAL | | | | | | CENTER - | | | | | | LABORATORY | | + + + + + + | Absolute | 4.08 (H) | 0.60 - 3.20 | [facility] | | | Lymphocytes | | K/uL | [facility] | | | | | | MEDICAL | | | | | | CENTER - | | | | | | LABORATORY | | + + + + + + | Absolute | 0.79 | 0.00 - 1.00 | [facility] | | | Monocytes | | K/uL | [facility] | | | | | | MEDICAL | | | | | | CENTER - | | | | | | LABORATORY | | + + + + + + | Absolute | 0.71 (H) | 0.00 - 0.40 | [facility] | | | Eosinophils | | K/uL | [facility] | | | | | | MEDICAL | | | | | | CENTER - | | | | | | LABORATORY | | + + + + + + | Absolute | 0.19 (H) | 0.00 - 0.10 | [facility] | | | Basophils | | K/uL | [facility] | | | | | | MEDICAL | | | | | | CENTER - | | | | | | LABORATORY | | + + + + + + | Absolute | 0.03 | 0.00 - 0.03 | [facility] | | | Immature | | K/uL | [facility] | | | Granulocyte | | | MEDICAL | | | s | | | CENTER - | | | | | | LABORATORY | | + + + + + + | % nRBC | 0 | 0 - 2 per 100 | [facility] | | | | | WBC's | [facility] | | | | | | MEDICAL | | | | | | CENTER - | | | | | | LABORATORY | | + + + + + + | Absolute | 0.00 | 0.00 - 0.01 | [facility] | | | nRBC | | K/uL | [facility] | [...] [address] | [place] | [phone] | | [facility] | | [address] | | | - LABORATORY | | | | + + + + + documented in this encounter Visit Diagnoses + + | Diagnosis | + + | COPD exacerbation (HCC) - Primary Obstructive chronic bronchitis with exacerbation | + + | Hypoxia Hypoxemia | + + | Tobacco abuse Tobacco use disorder | + + | Anxiety Anxiety state, unspecified | + + | Cerebral microvascular disease Cerebrovascular disease, unspecified | + + | Chronic obstructive pulmonary disease, unspecified COPD type (HCC) | + + | Acute on chronic respiratory failure with hypoxia (HCC) | + + | Polycythemia secondary to hypoxia Polycythemia, secondary | + + documented in this encounter Administered Medications + +--------+ +--------+------+------+ | Medication Order | MAR | Action | Dose | Rate | Site | | | Action | Date | | | | + +--------+ +--------+------+------+ | acetaminophen (TYLENOL) tablet | Given | 04/18/19 | 650 mg | | | | 650 mg 650 mg, Oral, EVERY 4 | | 19 9:32 | | | | | HOURS PRN, Pain, or fever >= 38.6 | | AM PST | | | | | C (101.5 F), Starting Wed | | | | | | | 04/17/18 at 1517 | | | | | | + +--------+ +--------+------+------+ +---+---+ | | | +---+---+ + +-------+ +------+---+---+ | albuterol 5 mg/mL concentrated | Given | 04/17/19 | 5 mg | | | | nebulizer solution 5 mg 5 mg, | | 19 1:41 | | | | | Nebulization, RT Once, Wed | | PM PST | | | | | 04/17/18 at 1325, For 1 dose, RT | | | | | | | will administer., | | | | | | + +-------+ +------+---+---+ +---+---+ | | | +---+---+ + +-------+ +-------+---+---+ | albuterol-ipratropium 2.5-0.5 | Given | 04/17/19 | 3 mLs | | | | mg/3 mL nebulizer solution 3 mL | | 19 12:12 | | | | | 3 mL, Nebulization, RT Q6H, First | | PM PST | | | | | dose on Sun04/17/18 at 1155 | | | | | | + +-------+ +-------+---+---+ +---+---+ | | | +---+---+ + +-------+ +-------+---+---+ | albuterol-ipratropium 2.5-0.5 | Given | 04/21/19 | 3 mLs | | | | mg/3 mL nebulizer solution 3 mL | | 19 11:06 | | | | | 3 mL, Nebulization, 4 TIMES | | AM PST | | | | | DAILY, First dose (after last | | | | | | | modification) on Sun04/17/18 at | | | | | | | 2100 | | | | | | + +-------+ +-------+---+---+ +-------+ +-------+---+---+ | Given | 04/21/19 | 3 mLs | | | | | 19 8:39 | | | | | | AM PST | | | | +-------+ +-------+---+---+ | Given | 04/20/19 | 3 mLs | | | | | 19 9:04 | | | | | | PM PST | | | | +-------+ +-------+---+---+ +---+---+ | | | +---+---+ + +-------+ +-------+---+---+ | albuterol-ipratropium 2.5-0.5 | Given | 04/17/19 | 3 mLs | | | | mg/3 mL nebulizer solution 3 mL | | 19 3:44 | | | | | 3 mL, Nebulization, EVERY 2 HOURS | | PM PST | | | | | PRN, Shortness of Breath, | | | | | | | Starting 04/17/18 at 1517 | | | | | | + +-------+ +-------+---+---+ +---+---+ | | | +---+---+ + +-------+ +-------+---+---+ | aspirin chewable tablet 81 mg | Given | 04/21/19 | 81 mg | | | | 81 mg, Oral, DAILY, First dose on | | 19 9:18 | | | | | 04/20/18 at 1730 | | AM PST | | | | + +-------+ +-------+---+---+ +-------+ +-------+---+---+ | Given | 04/20/19 | 81 mg | | | | | 19 5:35 | | | | | | PM PST | | | | +-------+ +-------+---+---+ +---+---+ | | | +---+---+ + +-------+ +-------+---+---+ | atenolol (TENORMIN) tablet 25 | Given | 04/21/19 | 25 mg | | | | mg 25 mg, Oral, DAILY, First | | 19 9:18 | | | | | dose on [facility] 1/24/19 at 0900 | | AM PST | | | | + +-------+ +-------+---+---+ +-------+ +-------+---+---+ | Given | 04/20/19 | 25 mg | | | | | 19 9:08 | | | | | | AM PST | | | | +-------+ +-------+---+---+ | Given | 04/18/19 | 25 mg | | | | | 19 9:25 | | | | | | AM PST | | | | +-------+ +-------+---+---+ +---+---+ | | | +---+---+ + +-------+ +-------+---+---+ | atorvaSTATin (LIPITOR) tablet | Given | 04/20/19 | 20 mg | | | | 20 mg 20 mg, Oral, NIGHTLY, | | 19 8:44 | | | | | First dose on 04/20/18 at 2100 | | PM PST | | | | + +-------+ +-------+---+---+ +---+---+ | | | +---+---+ + +---------+ +--------+-------+---+ | azithromycin (ZITHROMAX) 500 mg | New Bag | 04/17/19 | 500 mg | 255 | | | in sodium chloride 0.9% 250 mL | | 19 3:07 | | mL/hr | | | IVPB 500 mg, Intravenous, | | PM PST | | | | | Administer over 1 Hours, ONCE, | | | | | | | 04/17/18 at 1400, For 1 dose, | | | | | | | Keep in refrigerator., | | | | | | | Indications: Acute Exacerbation | | | | | | | of COPD | | | | | | + +---------+ +--------+-------+---+ +---+---+ | | | +---+---+ + +-------+ +--------+---+---+ | azithromycin (ZITHROMAX) tablet | Given | 04/21/19 | 250 mg | | | | 250 mg 250 mg, Oral, DAILY, | | 19 9:18 | | | | | First dose (after last | | AM PST | | | | | modification) on [place] 04/18/18 at | | | | | | | 1500, Indications: copd | | | | | | | exacerbation | | | | | | + +-------+ +--------+---+---+ +-------+ +--------+---+---+ | Given | 04/20/19 | 250 mg | | | | | 19 9:09 | | | | | | AM PST | | | | +-------+ +--------+---+---+ | Given | 04/19/19 | 250 mg | | | | | 19 9:25 | | | | | | AM PST | | | | +-------+ +--------+---+---+ +---+---+ | | | +---+---+ + +-------+ +-------+---+ + | enoxaparin (LOVENOX) 40 mg/0.4 | Given | 04/21/19 | 40 mg | | Abdomen- | | mL injection 40 mg 40 mg, | | 19 9:16 | | | RLQ | | Subcutaneous, EVERY 24 HOURS | | AM PST | | | | | (Daily), First dose on [place] | | | | | | | 04/18/18 at 0900 | | | | | | + +-------+ +-------+---+ + +-------+ +-------+---+ + | Given | 04/20/19 | 40 mg | | Abdomen- | | | 19 9:10 | | | LLQ | | | AM PST | | | | +-------+ +-------+---+ + | Given | 04/19/19 | 40 mg | | Abdomen- | | | 19 9:27 | | | RLQ | | | AM PST | | | | +-------+ +-------+---+ + +---+---+ | | | +---+---+ + +-------+ +-------+---+---+ | escitalopram (LEXAPRO) tablet | Given | 04/21/19 | 20 mg | | | | 20 mg 20 mg, Oral, DAILY, First | | 19 9:17 | | | | | dose on Sun04/17/18 at 1545 | | AM PST | | | | + +-------+ +-------+---+---+ +-------+ +-------+---+---+ | Given | 04/20/19 | 20 mg | | | | | 19 9:08 | | | | | | AM PST | | | | +-------+ +-------+---+---+ | Given | 04/19/19 | 20 mg | | | | | 19 9:24 | | | | | | AM PST | | | | +-------+ +-------+---+---+ +---+---+ | | | +---+---+ + +-------+ + +---+---+ | fluticasone (FLONASE) 50 | Given | 04/21/19 | 2 sprays | | | | mcg/nasal spray 2 spray 2 spray, | | 19 9:21 | | | | | Each Nare, DAILY, First dose on | | AM PST | | | | | [place] 04/18/18 at 1515, [place] | | | | | | | gently., | | | | | | + +-------+ + +---+---+ +-------+ + +---+---+ | Given | 04/18/19 | 2 sprays | | | | | 19 4:11 | | | | | | PM PST | | | | +-------+ + +---+---+ +---+---+ | | | +---+---+ + +-------+ +--------+---+---+ | gadobutrol (GADAVIST) injection | Given | 04/20/19 | 10 mLs | | | | 10 mL 10 mL, Intravenous, ONCE | | 19 3:12 | | | | | PRN, Other, Starting 04/20/18 | | PM PST | | | | | at 1511, For 1 dose, MRI | | | | | | + +-------+ +--------+---+---+ + +---+ | | | + +---+ | guaiFENesin-dextromethorphan | | | (ROBITUSSIN DM) 100-10 mg/5 mL | | | liquid 10 mL 10 mL, Oral, EVERY | | | 4 HOURS PRN, Cough, Starting Sat | | | 04/20/18 at 1114 | | + +---+ | | | + +---+ + +-------+ +------+---+---+ | LORazepam (ATIVAN) injection | Given | 04/20/19 | 1 mg | | | | 1-2 mg 1-2 mg, Intravenous, | | 19 1:47 | | | | | ONCE, 04/20/18 at 1130, For 1 | | PM PST | | | | | dose, For MRI, | | | | | | + +-------+ +------+---+---+ +---+---+ | | | +---+---+ + +-------+ +-------+---+---+ | methylPREDNISolone sodium | Given | 04/18/19 | 40 mg | | | | succinate (solu-MEDROL) 40 mg/mL | | 19 6:11 | | | | | injection 40 mg 40 mg, | | AM PST | | | | | Intravenous, EVERY 8 HOURS (3 | | | | | | | times per day), First dose on Sun | | | | | | | 04/17/18 at 2100, Mix with 1 mL | | | | | | | provided diluent to make 40 | | | | | | | mg/mL., | | | | | | + +-------+ +-------+---+---+ +-------+ +-------+---+---+ | Given | 04/17/19 | 40 mg | | | | | 19 9:29 | | | | | | PM PST | | | | +-------+ +-------+---+---+ +---+---+ | | | +---+---+ + +-------+ +-------+---+---+ | methylPREDNISolone sodium | Given | 04/17/19 | 60 mg | | | | succinate (solu-MEDROL) 62.5 | | 19 12:01 | | | | | mg/mL injection 60 mg 60 mg, | | PM PST | | | | | Intravenous, ONCE, 04/17/18 at | | | | | | | 1155, For 1 dose, Mix with 2 mL | | | | | | | provided diluent to make 62.5 | | | | | | | mg/mL., | | | | | | + +-------+ +-------+---+---+ +---+---+ | | | +---+---+ + +---------+ +---------+---+ + | nicotine (NICODERM) 21 mg/24 hr | Patch | 04/21/19 | 1 patch | | Arm-Left | | 1 patch 1 patch, Transdermal, | Applied | 19 9:17 | | | Lower | | DAILY, First dose on [facility] 04/18/18 | | AM PST | | | | | at 1515 | | | | | | + +---------+ +---------+---+ + + + +---------+---+ + | Patch Applied | 04/20/19 | 1 patch | | Arm-Left | | | 19 9:09 | | | Upper | | | AM PST | | | | + + +---------+---+ + | Patch Applied | 04/19/19 | 1 patch | | Arm-Righ | | | 19 9:26 | | | t Upper | | | AM PST | | | | + + +---------+---+ + +---+---+ | | | +---+---+ + +-------+ +-------+---+---+ | pantoprazole (PROTONIX) DR | Given | 04/21/19 | 40 mg | | | | tablet 40 mg 40 mg, Oral, DAILY | | 19 6:33 | | | | | BEFORE BREAKFAST, First dose on | | AM PST | | | | | [facility] 04/18/18 at 0730, Do not cut | | | | | | | or crush., Indication: GERD | | | | | | + +-------+ +-------+---+---+ +-------+ +-------+---+---+ | Given | 04/20/19 | 40 mg | | | | | 19 6:34 | | | | | | AM PST | | | | +-------+ +-------+---+---+ | Given | 04/19/19 | 40 mg | | | | | 19 6:28 | | | | | | AM PST | | | | +-------+ +-------+---+---+ +---+---+ | | | +---+---+ + +-------+ +-------+---+---+ | predniSONE (DELTASONE) tablet | Given | 04/21/19 | 40 mg | | | | 40 mg 40 mg, Oral, DAILY, First | | 19 9:17 | | | | | dose on [place] 04/18/18 at 1200 | | AM PST | | | | + +-------+ +-------+---+---+ +-------+ +-------+---+---+ | Given | 04/20/19 | 40 mg | | | | | 19 9:08 | | | | | | AM PST | | | | +-------+ +-------+---+---+ | Given | 04/19/19 | 40 mg | | | | | 19 9:25 | | | | | | AM PST | | | | +-------+ +-------+---+---+ +---+---+ | | | +---+---+ documented in this encounter
--- OUTSIDE RECORDS SUMMARY | ~2019-02-03 | XMS | Encounter Summary ---
Demographics + + + | Address | [address] | | | [place] [address] | + + + | Home Phone | | + + + | Preferred Language | Unknown | + + + | Marital Status | | + + + | Pentecostal Affiliation | 1041 | + + + | Race | Unknown | + + + | Ethnic Group | Unknown | + + + Author + + + | Author | [facility] | | | and [place] | + + + | Organization | [facility] | | [...] Team Providers + +------+ + | Care Product Management Intern Name | Role | Phone | + +------+ + PCP | Unavailable | + +------+ + Encounter Details +--------+ + + + + | Date | Type | Department | Care Team | Description | +--------+ + + + + | 01/29/ | Hospital | [facility] | Pepper Kamara | | | 2008 | Encounter | MED CTR LABORATORY | L, LEAD TEACHER [address] | | | | | [address] [place] | [place] | | | | | [place] | [address] | | | | | [address] | | | | | | [phone] | | | +--------+ + + + [...]
--- OUTSIDE RECORDS SUMMARY | ~2019-02-03 | XMS | Encounter Summary ---
Demographics + + + | Address | [address] | | | [place] [address] | + + + | Home Phone | | + + + | Preferred Language | Unknown | + + + | Marital Status | | + + + | Mosque Affiliation | 1041 | + + + | Race | Unknown | + + + | Ethnic Group | Unknown | + + + Author + + + | Author | [facility] | | | and [place] | + + + | Organization | [facility] | | | [...] Team Providers + +------+ + | Care Reeling Machine Operator Name | Role | Phone | + +------+ + PCP | Unavailable | + +------+ + Encounter Details +--------+ + + + + | Date | Type | Department | Care Team | Description | +--------+ + + + + | 08/15/ | Hospital | [facility] | | | | 2008 | Encounter | MED CTR EMERGENCY | | | | | | CENTER [address] | | | | | | [place] | | | | | | [address] | | | | | | [phone] | | | +--------+ + + + [...]
--- OUTSIDE RECORDS SUMMARY | ~2019-02-03 | XMS | Encounter Summary ---
Demographics + + + | Address | [address] | | | [place] [address] | + + + | Home Phone | | + + + | Preferred Language | Unknown | + + + | Marital Status | | + + + | Latter-Day Affiliation | 1041 | + + + | Race | Unknown | + + + | Ethnic Group | Unknown | + + + Author + + + | Author | [facility] | | | and [place] | + + + | Organization | [facility] | | | [...] Team Providers + +------+ + | Care Manufacturing Electrician Name | Role | Phone | + +------+ + PCP | Unavailable | + +------+ + Encounter Details +--------+ + + + + | Date | Type | Department | Care Team | Description | +--------+ + + + + | 08/23/ | Hospital | [facility] | | | | 2008 | Encounter | MED CTR EMERGENCY | | | | | | CENTER [address] | | | | | | [place] | | | | | | [address] | | | | | | [phone] | | | +--------+ + + + [...]
--- OUTSIDE RECORDS SUMMARY | ~2019-02-03 | XMS | Encounter Summary ---
Demographics + + + | Address | [address] | | | [place] [address] | + + + | Home Phone | | + + + | Preferred Language | Unknown | + + + | Marital Status | | + + + | Restoration Affiliation | 1041 | + + + | Race | Unknown | + + + | Ethnic Group | Unknown | + + + Author + + + | Author | [facility] | | | and [place] | + + + | Organization | [facility] | | | [...] Team Providers + +------+ + | Care Hplc Chemist Name | Role | Phone | + +------+ + | Scto Anton MD | PCP | | + +------+ + Reason for Visit + + + | Reason | Comments | + + + | TCM - Hosp FU | | + + + Encounter Details +--------+ + + + + | Date | Type | Department | Care Team | Description | +--------+ + + + + | 01/28/ | Telephone | [facility] | Scot Anton, | [facility] | | 2019 | | [place] [place] | [address] | | | | | [address] | [place] | | | | | [place] | [address] | | | | | [address] | | | | | | [phone] | | | +--------+ + + + [...]
--- OUTSIDE RECORDS SUMMARY | ~2019-02-03 | XMS | Encounter Summary ---
Demographics + + + | Address | [address] | | | [place] [address] | + + + | Home Phone | | + + + | Preferred Language | Unknown | + + + | Marital Status | | + + + | Christian Affiliation | 1041 | + + + | Race | Unknown | + + + | Ethnic Group | Unknown | + + + Author + + + | Author | [facility] | | | and [place] | + + + | Organization | [facility] | | | and [...] Team Providers + +------+ + | Care Microwave Remote Sensing Scientist Name | Role | Phone | + [...] [place] | | | | | | [address] | | | | | | [phone] | | | +--------+ + + + [...]
--- OUTSIDE RECORDS SUMMARY | ~2019-02-03 | XMS | Encounter Summary ---
Demographics + + + | Address | [address] | | | [place] [address] | + + + | Home Phone | | + + + | Preferred Language | Unknown | + + + | Marital Status | | + + + | Jehovah'S Witness Affiliation | 1041 | + + + | Race | Unknown | + + + | Ethnic Group | Unknown | + + + Author + + + | Author | [facility] | | | and [place] | + + + | Organization | [facility] | | | and [...] Team Providers + +------+ + | Care Maxillofacial Prosthetics Dentist Name | Role | Phone | + +------+ + | Pepper Kamara | PCP | | + +------+ + Encounter Details +--------+ + + + + | Date | Type | Department | Care Team | Description | +--------+ + + + + | 10/13/ | Hospital | [facility] | Carmen Marquez | | | 2010 | Encounter | MED CTR EMERGENCY | Marisol Brand MD [address] | | | | | [address] | [facility] | | | | | [place] | [place] [address] | | | | | [address] | [phone] | | | | | [phone] | | | +--------+ + + + [...] - 1.030 | [facility] | | | [place] | | | [facility] | | [...] ST[address] | [address] | [place] | [phone] | | [facility] | | [address] | | | - LABORATORY | | | | + + + + + | [address] | [address] | [place], [place] | | | [facility] | | [address] | | | - LABORATORY | | | | + + + + + documented in this encounter Visit Diagnoses Not on filedocumented in this encounter"
--- OUTSIDE RECORDS SUMMARY | ~2019-02-03 | XMS | Encounter Summary ---
Demographics + + + | Address | [address] | | | [place] [address] | + + + | Home Phone | | + + + | Preferred Language | Unknown | + + + | Marital Status | | + + + | Scientologist Affiliation | 1041 | + + + | Race | Unknown | + + + | Ethnic Group | Unknown | + + + Author + + + | Author | [facility] | | | and [place] | + + + | Organization | [facility] | | | [...] Team Providers + +------+ + | Care Policy Change Clerk Name | Role | Phone | + +------+ + | Scot Anton MD | PCP | | + +------+ + Reason for Visit + + + | Reason | Comments | + + + | Medication Prior | Diclofenac gel | | Authorization | | + + + Encounter Details +--------+ + + + + | Date | Type | Department | Care Team | Description | +--------+ + + + + | 03/18/ | Telephone | [facility] | Scot Anton, | Medication Prior | | 2018 | | [facility] | [address] | Authorization | | | | [address] | [place] | (Diclofenac gel) | | | | [place] | [address] | | | | | [address] | | | | | | [phone] | | | +--------+ + + + [...]
--- OUTSIDE RECORDS SUMMARY | ~2019-02-03 | XMS | Encounter Summary ---
Demographics + + + | Address | [address] | | | [place] [address] | + + + | Home Phone | | + + + | Preferred Language | Unknown | + + + | Marital Status | | + + + | Pentecostal Affiliation | 1041 | + + + | Race | Unknown | + + + | Ethnic Group | Unknown | + + + Author + + + | Author | [facility] | | | and [place] | + + + | Organization | [facility] | | | and [...] Team Providers + +------+ + | Care Marble Machine Tender Name | Role | Phone | + +------+ + | Scot Anton MD | PCP | | + +------+ + Reason for Visit + + + | Reason | Comments | + + + | Medication Refill | | + + + | Medication Refill | | + + + Encounter Details +--------+--------+ + + + | Date | Type | Department | Care Team | Description | +--------+--------+ + + + | 10/30/ | Refill | [facility] | Scot Anton, | Medication Refill; | | 2019 | | [place]IC[facility] [place] | [address] | Medication Refill | | | | [address] | [place] | | | | | [place] | [address] | | | | | [address] | | | | | | [phone] | | | +--------+--------+ + + + [...] +---+---+---+ + + | Comments: down to 2-4 cigs a day and working on getting [...] + + documented as of this encounter Functional Status + + + + | Functional Status | Response | Date of Assessment | + + + + | Are you deaf or do you have serious | No | 09/23/2018 | | difficulty hearing? | | | + + + + | Are you blind or do you have serious | No | 09/23/2018 | | difficulty seeing, even when wearing | | | | glasses? | | | + + + + | Do you have serious difficulty walking or | No | 09/23/2018 | | climbing stairs? (5 years old or older) | | | + + + + | Do you have difficulty dressing or bathing? | No | 09/23/2018 | | (5 years old or older) | | | + + + + | Because of a physical, mental, or emotional | No | 09/23/2018 | | condition, do you have difficulty doing | | | | errands alone such as visiting a doctor's | | | | office or shopping? [15 years old or | | | | older)] | | | + + + + + + + + | Cognitive Status | Response | Date of Assessment | + + + + | Because of a physical, mental, or emotional | No | 09/23/2018 | | condition, do you have serious difficulty | | | | concentrating, remembering, or making | | | | decisions? (5 years old or older) | | | + + + + documented as of this encounter Plan of Treatment Not on filedocumented as of this encounter Visit Diagnoses + + | Diagnosis | + + | Chronic obstructive pulmonary disease, unspecified COPD type (HCC) | + + documented in this encounter"
--- OUTSIDE RECORDS SUMMARY | ~2019-02-03 | XMS | Encounter Summary ---
Demographics + + + | Address | [address] | | | [place] [address] | + + + | Home Phone | | + + + | Preferred Language | Unknown | + + + | Marital Status | | + + + | Shinto Affiliation | 1041 | + + + | Race | Unknown | + + + | Ethnic Group | Unknown | + + + Author + + + | Author | [facility] | | | and [place] | + + + | Organization | [facility] | | [...] Team Providers + +------+ + | Care Blog Writer Name | Role | Phone | + +------+ + | Pepper Kamara | PCP | | + +------+ + Encounter Details +--------+ + + + + | Date | Type | Department | Care Team | Description | +--------+ + + + + | 07/21/ | [facility] | [facility] | Pepper Kamara | | | 2010 | Encounter | MED CTR XRAY [address] [place] [address] | | | | | [address] [place] | [place] | | | | | [place] [address] | [address] | | | | | [phone] | | | +--------+ + + + [...] | + +--------+ + + + | RIDGE DIGITAL | | 07/21/2010 | | Results for this | | SCREENING BILATERAL | | 10:04 AM | | procedure are in the | | | | PDT | | results section. | + +--------+ + + + | US ABDOMEN LIMITED | | 07/21/2010 | | Results for this | | | | 10:04 AM | | procedure are in the | | | | PDT | | results section. | + +--------+ + + + documented in this encounter Results RIDGE Digital Screening Bilateral (07/21/2010 10:04 AM PDT) + + | Specimen | + + | | + + + + + | Narrative | Performed At | + + + | [facility] Diagnostic Imaging Department | [facility] | | [address] [facility] | [facility] | | BILATERAL DIGITAL SCREENING | DIAG IMG | | BASELINE MAMMOGRAM WITH CAD, 07/21/2010 CLINICAL HISTORY: | | | BASELINE SCREENING, ASYMPTOMATIC. FINDINGS: Review of the | | | baseline 4 view mammogram demonstrates benign mammographic findings | | | with no suspicion of malignancy. IMPRESSION: 1. BIRADS 2: | | | BENIGN. RECOMMENDATIONS: ANNUAL FOLLOWUP ACCORDING TO ACS | | | GUIDELINES. Dictated Date/Time: 08/02/2010 08:59 Transcribed | | | Date/Time: 08/02/2010 09:14 Loader Magazine Grinder: | | | <Electronically Signed by Marquise Rodriguez MD> 08/02/10 1623 | | + + + + + | Procedure Note | + + | Jhoan, Rad Conversion - 05/02/2013 2:49 PM [facility] | | Diagnostic Imaging Department [address] [place] [address] | | BILATERAL DIGITAL SCREENING BASELINE MAMMOGRAM WITH CAD, | | 07/21/2010 CLINICAL HISTORY: BASELINE SCREENING, ASYMPTOMATIC. FINDINGS: Review of | | the baseline 4 view mammogram demonstrates benign mammographic findings with no | | suspicion of malignancy. IMPRESSION:1. BIRADS 2: BENIGN. RECOMMENDATIONS: ANNUAL | | FOLLOWUP ACCORDING TO ACS GUIDELINES. Dictated Date/Time: 08/02/2010 08:59Transcribed | | Date/Time: 08/02/2010 09:14Transcriptionist: <Electronically Signed by Marquise Schrader | | MD Michael> 08/02/10 [id number] | | | |FINDINGS: Review of the baseline 4 view mammogram demonstrates benign mammographic finding s with no | |suspicion of malignancy. | | | |IMPRESSION: | |1. BIRADS 2: BENIGN. | | | |RECOMMENDATIONS: ANNUAL FOLLOWUP ACCORDING TO ACS GUIDELINES. | | | |Dictated Date/Time: 08/02/2010 08:59 | |Transcribed Date/Time: 08/02/2010 09:14 | |Loader Magazine Grinder: | |<Electronically Signed by Marquise Rodriguez MD> 08/02/10 5753 | + + + +---------+ + + | Performing | Address | City/State/Zipcode | Phone Number | | Organization | | | | + +---------+ + + | [place] | | | | | [place] | | | | + +---------+ + + US Abdomen Limited (07/21/2010 10:04 AM PDT) + + | Specimen | + + | | + + + + + | Narrative | Performed At | + + + | [facility] Diagnostic Imaging Department | [facility] | | [address] [facility] | [facility] | | GALLBLADDER ULTRASOUND, 1020 | DIAG IMG | | HOURS, 07/21/2010 CLINICAL HISTORY: RIGHT UPPER QUADRANT | | | PAIN, POSITIVE SAUCEDO'S SIGN. FINDINGS: The gallbladder is | | | remarkable for intraluminal sludge. No stones or gallbladder wall | | | thickening are seen. There is negative sonographic Saucedo's sign. | | | Imaging through the liver demonstrates diffuse hyperechoic | | | parenchymal echotexture suggesting hepatosteatosis. There are two | | | small anechoic cysts near ligamentum teres. Selected images of the | | | pancreas and upper pole of the right kidney are unremarkable. | | | IMPRESSION: 1. NEGATIVE FOR CHOLELITHIASIS. Dictated | | | Date/Time: 07/21/2010 12:03 Transcribed Date/Time: 07/21/2010 | | | 12:23 Loader Magazine Grinder: <Electronically Signed by Marquise Schrader | | | MD Michael> 07/21/102126 | | + + + + ---------+ | Procedure Note | + ---------+ | Jhoan, Rad Conversion - 05/02/2013 2:48 PM [facility] | | Diagnostic Imaging Department [address] [place] [address] | | GALLBLADDER ULTRASOUND, 1020 HOURS, 07/21/2010 | | CLINICAL HISTORY: RIGHT UPPER QUADRANT PAIN, POSITIVE SAUCEDO'S SIGN. FINDINGS: The | | gallbladder is remarkable for intraluminal sludge. No stones or gallbladder wall | | thickening are seen. There is negative sonographic Saucedo's sign. Imaging through the | | liver demonstrates diffuse hyperechoic parenchymal echotexture suggesting | | hepatosteatosis. There are two small anechoic cysts near ligamentum teres. Selected | | images of the pancreas and upper pole of the right kidney are unremarkable. IMPRESSION: | | 1. NEGATIVE FOR CHOLELITHIASIS. Dictated Date/Time: 07/21/2010 12:03 Transcribed | | Date/Time: 07/21/2010 12:23 Loader Magazine Grinder: <Electronically Signed by Marquise Schrader | | MD Michael> 07/21/102126 | |demonstrates diffuse hyperechoic parenchymal echotexture suggesting hepatosteatosis. There are | |two small anechoic cysts near ligamentum teres. Selected images of the pancreas and upper pole of | |the right kidney are unremarkable. | | | |IMPRESSION: | |1. NEGATIVE FOR CHOLELITHIASIS. | | | |Dictated Date/Time: 07/21/2010 12:03 | |Transcribed Date/Time: 07/21/2010 12:23 | |Loader Magazine Grinder: | |<Electronically Signed by Marquise Rodriguez MD> 07/21/102126 | + ---------+ + +---------+ + + | Performing | Address | City/State/Zipcode | Phone Number | | Organization | | | | + +---------+ + + | [place] | | | | | [place] | | | | + +---------+ + + documented in this encounter Visit Diagnoses Not on filedocumented in this encounter"
--- OUTSIDE RECORDS SUMMARY | ~2019-02-03 | XMS | Encounter Summary ---
Demographics + + + | Address | [address] | | | [place] [address] | + + + | Home Phone | | + + + | Preferred Language | Unknown | + + + | Marital Status | | + + + | Presybeterian Affiliation | 1041 | + + + | Race | Unknown | + + + | Ethnic Group | Unknown | + + + Author + + + | Author | [facility] | | | and [place] | + + + | Organization | [facility] | | | [...] Team Providers + +------+ + | Care Buckle Gluer Name | Role | Phone | + +------+ + | Scot Anton MD | PCP | | + +------+ + Encounter Details +--------+ + + + + | Date | Type | Department | Care Team | Description | +--------+ + + + + | 02/22/ | Episode | [facility] | Dasha Lee, | | | 2016 | Changes | GASTROENTEROLOGY | Computational Biologist | | | | | [address] [place] | | | | | | [address] [place] | | | | | | [address] | | | | | | [phone] | | | +--------+ + + + [...]
--- OUTSIDE RECORDS SUMMARY | ~2019-02-03 | XMS | Encounter Summary ---
Demographics + + + | Address | [address] | | | [place] [address] | + + + | Home Phone | | + + + | Preferred Language | Unknown | + + + | Marital Status | | + + + | Pentecostalism Affiliation | 1041 | + + + [...] Team Providers + +------+ + | Care Pipe Foreman Name | Role | Phone | + +------+ + | Scot Anton MD | PCP | | + +------+ + Encounter Details +--------+ + + + + | Date | Type | Department | Care Team | Description | +--------+ + + + + | 04/24/ | Home Care | [facility] [place] | Nisa Leyva, | CASE COMMUNICATION | | 2019 | Visit | [place] [address] | RN | | | | | [place] | | | | | | [address] | | | | | | [phone] | | | +--------+ + + + [...]
--- OUTSIDE RECORDS SUMMARY | ~2019-02-03 | XMS | Encounter Summary ---
Demographics + + + | Address | [address] | | | [place] [address] | + + + | Home Phone | | + + + | Preferred Language | Unknown | + + + | Marital Status | | + + + | Anglican Affiliation | 1041 | + + + | Race | Unknown | + + + | Ethnic Group | Unknown | + + + Author + + + | Author | [facility] | | | and [place] | + + + | Organization | [facility] | | | [...] Team Providers + +------+ + | Care Sales Operations Coordinator Name | Role | Phone | + +------+ + | Pepper Kamara | PCP | | + +------+ + Encounter Details +--------+ + + + + | Date | Type | Department | Care Team | Description | +--------+ + + + + | 04/04/ | Hospital | [facility] | Simin Costello | | | 2011 | Encounter | MED CTR LABORATORY | MD [place] | | | | | [address] | [address] [place] | | | | | [place] | [place], [place] [address] | | | | | [address] | [phone] | | | | | [phone] | | | +--------+ + + + [...]
--- OUTSIDE RECORDS SUMMARY | ~2019-02-03 | XMS | Encounter Summary ---
Demographics + + + | Address | [address] | | | [place] [address] | + + + | Home Phone | | + + + | Preferred Language | Unknown | + + + | Marital Status | | + + + | Synagogue Affiliation | 1041 | + + + | Race | Unknown | + + + | Ethnic Group | Unknown | + + + Author + + + | Author | [facility] | | | and [place] | + + + | Organization | [facility] | | | and [...] Team Providers + +------+ + | Care Adult Literacy Teacher Name | Role | Phone | + +------+ + | No, Physician | PCP | Unavailable | + +------+ + Encounter Details +--------+ + + + + | Date | Type | Department | Care Team | Description | +--------+ + + + + | 12/18/ | Abstract | [facility] | Scot Anton, | | | 2016 | | MEDICINE [place] | [address] | | | | | [address] | [place] | | | | | [place] | [address] | | | | | [address] | | | | | | [phone] | | | +--------+ + + + [...] | + +--------+ + + + | EXTERNAL: | Routin | 09/11/2008 | | Results for this | | COLONOSCOPY | e | | | procedure are in the | | | | | | results section. | + +--------+ + + + documented in this encounter Results EXTERNAL: COLONOSCOPY (09/11/2008) + + + + + + | Component | Value | Ref Range | Performed | Pathologist | | | | | At | Signature | + + + + + + | Colonoscopy | Three 2-4mm polyps in | | | | | | the recto-sigmoid colon, | | | | | Impression, | diverticulosis in the | | | | | External | sigmoid colon. Repeat 5 | | | | | | years. | | | | + + + + + + documented in this encounter Visit Diagnoses Not on filedocumented in this encounter"
--- OUTSIDE RECORDS SUMMARY | ~2019-02-03 | XMS | Encounter Summary ---
Demographics + + + | Address | [address] | | | [place] [address] | + + + | Home Phone [...] Team Providers + +------+ + | Care Paint Factory Worker Name | Role | Phone | + +------+ + PCP | Unavailable | + +------+ + Encounter Details +--------+ + + + + | Date | Type | Department | Care Team | Description | +--------+ + + + + | 12/30/ | Hospital | [facility] | | | | 2007 | Encounter | MED CTR EMERGENCY | | | | | | CENTER [address] | | | | | | [place] | | | | | | [address] | | | | | | [phone] | | | +--------+ + + + [...]
--- OUTSIDE RECORDS SUMMARY | ~2019-02-03 | XMS | Encounter Summary ---
Demographics + + + | Address | [address] | | | [place] [address] | + + + | Home Phone | | + + + | Preferred Language | Unknown | + + + | Marital Status | | + + + | Advent Affiliation | 1041 | + + + | Race | Unknown | + + + | Ethnic Group | Unknown | + + + Author + + + | Author | [facility] | | | and [place] | + + + | Organization | [facility] | | | [...] Team Providers + +------+ + | Care Hotel Or Motel Cleaning Supervisor Name | Role | Phone | [...] Problem | | 2019 | | [facility] | [address] | | | | | [address] | [place] | | | | | [place] | [address] | | | | | [address] | | | | | | [phone] | | | +--------+--------+ + + + [...]
--- OUTSIDE RECORDS SUMMARY | ~2019-02-03 | XMS | Encounter Summary ---
Demographics + + + | Address | [address] | | | [place] [address] | + + + | Home Phone | | + + + | Preferred Language | Unknown | + + + | Marital Status | | + + + | Islam Affiliation | 1041 | + + + | Race | Unknown | + + + | Ethnic Group | Unknown | + + + Author + + + | Author | [facility] | | | and [place] | + + + | Organization | [facility] | | [...] Team Providers + +------+ + | Care Owner [employer] Name | Role | Phone | + +------+ + PCP | Unavailable | + +------+ + Encounter Details +--------+ + + + + | Date | Type | Department | Care Team | Description | +--------+ + + + + | 07/09/ | Hospital | [facility] | | | | 2008 | Encounter | [facility] | | | | | | CENTER [address] | | | | | | [place] | | | | | | [address] | | | | | | [phone] | | | +--------+ + + + [...]
--- OUTSIDE RECORDS SUMMARY | ~2019-02-03 | XMS | Encounter Summary ---
Demographics + + + | Address | [address] | | | [place] [address] | + + + | Home Phone | | + + + | Preferred Language | Unknown | + + + | Marital Status | | + + + | Anabaptism Affiliation | 1041 | + + + | Race | Unknown | + + + | Ethnic Group | Unknown | + + + Author + + + | Author | [facility] | | | and [place] | + + + | Organization | [facility] | | [...] Team Providers + +------+ + | Care Social Work Program Coordinator Name | Role | Phone | + +------+ + | Scot Anton MD | PCP | | + +------+ + Reason for Visit + + + | Reason | Comments | + + + | Mammogram | | + + + Encounter Details +--------+ + + + + | Date | Type | Department | Care Team | Description | +--------+ + + + + | 05/11/ | Patient | [facility] | Scot Anton, | Preventive | | 2018 | Outreach | [facility] | [address] | Screening, Breast | | | | [address] | [place] | Cancer Screening | | | | [place] | [address] | | | | | [address] | | | | | | [phone] | | | +--------+ + + + [...]
--- OUTSIDE RECORDS SUMMARY | ~2019-02-03 | XMS | Encounter Summary ---
Demographics + + + | Address | [address] | | | [place] [address] | + + + | Home Phone | | + + + | Preferred Language | Unknown | + + + | Marital Status | | + + + | Faith Affiliation | 1041 | + + + | Race | Unknown | + + + | Ethnic Group | Unknown | + + + Author + + + | Author | [facility] | | | and [place] | + + + | Organization | [facility] | | | and [...] Team Providers + +------+ + | Care Clubhouse Manager Name | Role | Phone | + +------+ + | Pepper Kamara | PCP | | + +------+ + Encounter Details +--------+ + + + + | Date | Type | Department | Care Team | Description | +--------+ + + + + | 04/04/ | Hospital | [facility] | Simin Costello | | | 2011 | Encounter | [facility] | [place] | | | | | [address] | [address] [place] | | | | | [place] | [place], [place] [address] | | | | | [address] | [phone] | | | | | [phone] | | | +--------+ + + + [...]
--- OUTSIDE RECORDS SUMMARY | ~2019-02-03 | XMS | Clinical Summary ---
Demographics + + + | Address | [address] | | | [place] [address] | + + + | Home Phone | | + + + | Preferred Language | Unknown | + + + | Marital Status | | + + + | Bahai Affiliation | [id number] | + + + | Race | Unknown | + + + | Ethnic Group | Unknown | + + + Author + + + | Author | [facility] | | | and [place] | + + + | Organization | [facility] | | | and [...] Team Providers + +------+ + | Care Heat Set Operator Name | Role | Phone | + +------+ + | Scot Anton MD | PCP | | + +------+ + Allergies + + + + + + | Active Allergy | Reactions | Severity | Noted | Comments | | | | | Date | | + + + + + + | Atorvastatin | Swelling, Myalgia | | 09/23/19 | | | | | | 19 | | + + + + + + | Clindamycin Hcl | Diarrhea | Low | | | + + + + + + | Codeine Sulfate | Other (See Comments) | Low | | Nightmares and | | | | | | sweats | + + + + + + | Hydrocodone | Other (See Comments) | Low | | Nightmares and | | | | | | sweats | + + + + + + | Ibuprofen | Other (See Comments) | Low | 12/28/19 | Renal failure | | | | | 12 | | + + + + + + | Lovastatin | Other (See Comments) | Medium | 09/07/19 | Muscle cramps, | | | | | 19 | feeling of being | | | | | | bloated | + + + + + + | Penicillins | Shortness Of Breath | High | 10/18/19 | Tolerates keflex | | | | | 18 | and other | | | | | | cephalosporins | + + + + + + | Sulfa Antibiotics | Rash | Low | | | + + + + + + | Tramadol | Shortness Of Breath | High | 10/18/19 | Tramadol | | | | | 18 | hydrochloride | + + + + + + | Trazodone | Anxiety | Low | 04/19/19 | | | | | | 19 | | + + + + + + | Venlafaxine | Other (See Comments) | Low | 02/03/20 | Makes her skin | | | | | 17 | crawl | + + + + + + Medications + + + +---------+------+------+-------+ | Medication | Sig | Dispensed | Refills | Star | End | Statu | | | | | | t | Date | s | | | | | | Date | | | + + + +---------+------+------+-------+ | aspirin 81 MG | Take 1 tablet by | 30 | 1 | 03/27 | | Activ | | tablet | mouth Daily. | tablet | | 11/12 | | e | | | | | | 19 | | | + + + +---------+------+------+-------+ | loratadine | Take 1 tablet by | 30 | 0 | 07/0 | | Activ | | (CLARITIN) 10 mg | mouth Daily. | tablet | | 2/20 | | e | | tablet | | | | 19 | | | + + + +---------+------+------+-------+ | atenolol | Take 1 tablet by | 90 | 1 | 10/0 | | Activ | | (TENORMIN) 25 mg | mouth Daily. To | tablet | | 7/20 | | e | | tabletIndications: | lower blood pressure | | | 19 | | | | Essential | and heart rate | | | | | | | hypertension | | | | | | | + + + +---------+------+------+-------+ | albuterol (PROAIR | Inhale 2 puffs into | 18 g | 5 | 10/0 | | Activ | | HFA) 90 mcg/puff | the lungs every 4 | | | 7/20 | | e | | inhalerIndications: | hours as needed for | | | 19 | | | | Chronic obstructive | Wheezing or | | | | | | | pulmonary disease, | Shortness of Breath. | | | | | | | unspecified COPD | | | | | | | | type (HCC) | | | | | | | + + + +---------+------+------+-------+ | | Inhale 2 puffs into | 1 | 2 | 10/0 | | Activ | | budesonide-formotero | the lungs 2 times | Inhaler | | 7/20 | | e | | l (SYMBICORT) | daily. Maintenance | | | 19 | | | | 160-4.5 mcg/puff | inhaler | | | | | | | inhalerIndications: | | | | | | | | Chronic obstructive | | | | | | | | pulmonary disease, | | | | | | | | unspecified COPD | | | | | | | | type ([facility]) | | | | | | | + + + +---------+------+------+-------+ | escitalopram | Take 1 tablet by | 90 | 1 | 10/0 | | Activ | | (LEXAPRO) 20 mg | mouth Daily. To help | tablet | | 7/20 | | e | | tabletIndications: | mood and anxiety | | | 19 | | | | Depression with | | | | | | | | anxiety | | | | | | | + + + +---------+------+------+-------+ | hydrOXYzine | Take 1-2 tablets by | 30 | 2 | 10/0 | | Activ | | hydrochloride | mouth every 8 hours | tablet | | 7/20 | | e | | (ATARAX) 25 mg | as needed for | | | 19 | | | | tabletIndications: | Anxiety. | | | | | | | Anxiety | | | | | | | + + + +---------+------+------+-------+ | tiotropium | inhale contents of 1 | 90 | 1 | 10/0 | | Activ | | (SPIRIVA HANDIHALER) | capsule by mouth | capsule | | 7/ | | e | | 18 mcg inhalation | once daily | | | 19 | | | | capsuleIndications: | | | | | | | | Chronic obstructive | | | | | | | | pulmonary disease, | | | | | | | | unspecified COPD | | | | | | | | type (HCC) | | | | | | | + + + +---------+------+------+-------+ | omeprazole | Take 1 capsule by | 90 | 1 | 10/0 | | Activ | | (PRILOSEC) 20 mg | mouth every morning | capsule | | 7/20 | | e | | capsuleIndications: | (before breakfast). | | | 19 | | | | Gastroesophageal | For heartburn | | | | | | | reflux disease, | | | | | | | | esophagitis presence | | | | | | | | not specified, | | | | | | | | Dill's esophagus | | | | | | | | without dysplasia | | | | | | | + + + +---------+------+------+-------+ Active Problems + + + | Problem | Noted Date | + + + | Bipolar 1 disorder, mixed | 11/22/2018 | + + + + + | Overview: Overview: PTSD, Dysthymia Tx'd by Dr. Pinedo, | | [facility]. Failed trial of Zoloft. | + + + + + | COPD exacerbation | 09/20/2018 | + + + | Meningiomas, multiple | 04/22/2018 | + + + + + | Overview: 07/2018: Stable. 03/2018: Likely mengioma. Repeat | | MRI in 3-6 monthsUTD "approach to the management of small, | | asymptomatic meningiomas is to reassess the patient with MRI or | | CT after three to six months. If the patient remains asymptomatic | | and there is no evidence of tumor growth, the patient can then | | be monitored with neuroimaging on an annual basis for three to | | five years, then every two to three years for as long as they | | remain a candidate for intervention." | + + + + + | Cerebral microvascular disease | 04/20/2018 | + + + | Anxiety | 01/04/2018 | + + + | Dill's esophagus | 02/19/2017 | + + + | COPD (chronic obstructive pulmonary disease) | 12/23/2015 | + + + | Depressive disorder, not elsewhere classified | 12/23/2015 | + + + + + | Overview: Overview: PTSD, Dysthymia Tx'd by Dr. Pinedo, | | [facility]. Failed trial of Zoloft. | + + + + + | Essential hypertension | 12/23/2015 | + + + | History of colon polyps | 12/14/2011 | + + + | Vitamin D deficiency | 12/13/2011 | + + + | Overactive bladder | 11/25/2010 | + + + | Tobacco abuse | 11/25/2010 | + + + | EPISTAXIS, RECURRENT | 04/19/2010 | + + + | Hemorrhoids, external | 04/19/2010 | + + + | Irritable bowel syndrome | 02/02/2010 | + + + | Obesity | 02/02/2010 | + + + | Hyperlipidemia | 02/02/2010 | + + + | Asthma | | + + + | Allergic rhinitis | | + + + | GERD | | + + + | Hypertension | | + + + Resolved Problems + + + + | Problem | Noted | Resolved | | | Date | Date | + + + + | Acute on chronic respiratory failure with hypoxia | 04/21/19 | | | | 19 | 9 | + + + + | Polycythemia secondary to hypoxia | 04/18/19 | | | | 19 | 9 | + + + + | Acute bronchitis | 12/23/19 | | | | 16 | 7 | + + + + | Acute respiratory failure with hypoxia | 12/23/19 | | | | 16 | 7 | + + + + Encounters +--------+ + + + + | Date | Type | Specialty | Care Team | Description | +--------+ + + + + | 12/30/ | Office | Family Medicine | Scot Anton, | Chronic obstructive | | 2019 | Visit | | MD | pulmonary disease, | | | | | | unspecified COPD | | | | | | type (HCC) (Primary | | | | | | Dx); Essential | | | | | | hypertension; | | | | | | Depression with | | | | | | anxiety; Anxiety; | | | | | | Gastroesophageal | | | | | | reflux disease, | | | | | | esophagitis presence | | | | | | not specified; | | | | | | Dill's esophagus | | | | | | without dysplasia; | | | | | | Fall, initial | | | | | | encounter | +--------+ + + + + | 12/17/ | Telephone | Family Medicine | Scot Anton, | TCM - Hosp FU | | 2018 | | | MD | | +--------+ + + + + | 12/02/ | Telephone | Family Medicine | Scot Anton, | Medication Follow-up | | 2019 | | | MD | | +--------+ + + + + | 11/22/ | Office | Family Medicine | Scot Anton, | Bipolar 1 disorder, | | 2018 | Visit | | MD | mixed (HCC) (Primary | | | | | | Dx) | +--------+ + + + + | 11/19/ | Telephone | Family Medicine | Scot Anton, | Anxiety | | 2018 | | | MD | | +--------+ + + + + | 11/08/ | Emergency | Emergency Medicine | Dez Sapp, | COPD with acute | | 2018 | | | MD | exacerbation (HCC) | | | | | | (Primary Dx) | +--------+ + + + + from Last 3 Months Immunizations + + + + | Name | Administration Dates | Next Due | + + + + | INFLUENZA PF 18 Y OR | 12/28/2011 | | | >,TRIVALENT | | | | RECOMBINANT | | | + + + + | INFLUENZA, | 01/13/2009 | | | UNSPECIFIED | | | | FORMULATION | | | + + + + | PNEUMOCOCCAL | 02/02/2017 | | | POLYSACCHARIDE | | | | 23-VALENT (PPSV23) | | | + + + + | TDAP, (ADOL/ADULT) | 02/02/2017 | | + + + + Family History + + +------+ + | Medical History | Relation | Name | Comments | + + +------+ + | Alcohol abuse | Father | | | + + +------+ + | Depression | Father | | | + + +------+ + | Lung cancer | Father | | | + + +------+ + | COPD | Mother | | | + + +------+ + | Depression | Mother | | | + + +------+ + | Heart defect | Mother | | congenital | + + +------+ + | Heart disease | Mother | | | + + +------+ + | High blood pressure | Mother | | | + + +------+ + | Stroke | Mother | | | + + +------+ + | Thyroid disease | Mother | | | + + +------+ + | Colon cancer | Niece | | | + + +------+ + | Breast cancer | Other | | Cousin | + + +------+ + | Stomach cancer | Sister | | | + + +------+ + + +------+ + + | Relation | Name | Status | Comments | + +------+ + + | Brother | | Alive | | + +------+ + + | Daughter | | Alive | | + +------+ + + | Father | | | | | | | (Age | | | | | 45) | | + +------+ + + | Maternal Grandfather | | | | + +------+ + + | Maternal Grandmother | | | | + +------+ + + | Mother | | | | + +------+ + + | Niece | | | | + +------+ + + | Other | | | | + +------+ + + | Paternal Grandfather | | | | + +------+ + + | Paternal Grandmother | | | | + +------+ + + | Sister | | Alive | | + +------+ + + Social History + + + +--------+ + | Tobacco Use | Types | Packs/Day | Years | Date | | | | | Used | | + + + +--------+ + | Current Every Day | Cigarettes | 0.25 | 30 | Quit: 09/27/2018 | | Smoker | | | | | + + + +--------+ + + +---+---+---+ | Smokeless Tobacco: | | | | | Never Used | | | | + +---+---+---+ + + | Tobacco Cessation: Ready to Quit: No; Counseling Given: Yes | | Comments: down to 2-4 cigs a [...] recent travel history available. | + + Last Filed Vital Signs + + + + + | Vital Sign | Reading | Time Taken | Comments | + + + + + | Blood Pressure | 134/78 | 12/30/2018 11:52 AM | | | | | PDT | | + + + + + | Pulse | 58 | 12/30/2018 11:52 AM | | | | | PDT | | + + + + + | Temperature | 36.5 C (97.7 F) | 12/30/2018 11:52 AM | | | | | PDT | | + + + + + | Respiratory Rate | 20 | 12/30/2018 11:52 AM | | | | | PDT | | + + + + + | Oxygen Saturation | 95% | 12/30/2018 11:52 AM | | | | | PDT | | + + + + + | Inhaled Oxygen | - | - | | | Concentration | | | | + + + + + | Weight | 68.1 kg (150 lb 2.1 | 12/30/2018 11:52 AM | | | | oz) | PDT | | + + + + + | Height | 157.5 cm (5' 2") | 11/08/2018 2:21 PM | | | | | PDT | | + + + + + | Body Mass Index | 27.46 | 11/08/2018 2:21 PM | | | | | PDT | | + + + + + Plan of Treatment + + + + + | Health Maintenance | Due Date | Last Done | Comments | + + + + + | Vaccine: Zoster (1 | | | | | of 2) | 1 | | | + + + + + | Colorectal Cancer | | 09/11/2008 | | | Screening | 9 | | | | (Colonoscopy) | | | | + + + + + | Vaccine: Influenza | | 12/28/2011, 01/13/2009 | | | (#1) | 9 | | | + + + + + | Breast Cancer | | 10/31/2018, 03/31/2015, | | | Screening | 1 | 03/31/2015, Additional history | | | | | exists | | + + + + + | Vaccine: | | 02/02/2017 | | | Dtap/Tdap/Td (2 - | 7 | | | | Td) | | | | + + + + + | Hepatitis C | Completed | 02/02/2017 | | | Screening | | | | + + + + + | Vaccine: | Completed | 02/02/2017 | | | Pneumococcal 19-64 | | | | + + + + + Procedures + +--------+ + + + | Procedure Name | Priori | Date/Time | Associated Diagnosis | Comments | | | ty | | | | + +--------+ + + + | LABS - EXTERNAL SCAN | | 12/14/2018 | | Results for this | | | | 12:00 AM | | procedure are in the | | | | PDT | | results section. | + +--------+ + + + | LABS - EXTERNAL SCAN | | 12/13/2018 | | Results for this | | | | 12:00 AM | | procedure are in the | | | | PDT | | results section. | + +--------+ + + + | IMAGING REPORT - | | 12/13/2018 | | Results for this | | EXTERNAL SCAN | | 12:00 AM | | procedure are in the | | | | PDT | | results section. | + +--------+ + + + | XR CHEST AP PORTABLE | STAT | 11/08/2018 | | Results for this | | | | 2:52 PM | | procedure are in the | | | | PDT | | results section. | + +--------+ + + + | BASIC METABOLIC | STAT | 11/08/2018 | | Results for this | | PANEL | | 2:45 PM | | procedure are in the | | | | PDT | | results section. | + +--------+ + + + | CBC WITH | STAT | 11/08/2018 | | Results for this | | DIFFERENTIAL | | 2:45 PM | | procedure are in the | | | | PDT | | results section. | + +--------+ + + + | LABS - EXTERNAL SCAN | | 11/05/2018 | | Results for this | | | | 12:00 AM | | procedure are in the | | | | PDT | | results section. | + +--------+ + + + from Last 3 Months Results LABS - EXTERNAL SCAN (12/14/2018 12:00 AM PDT)Only the most recent of 3 results within the time period is included. + + + | Narrative | Performed At | + + + | Ordered by an | | | unspecified provider. | | + + + IMAGING REPORT - EXTERNAL SCAN (12/13/2018 12:00 AM PDT) + + + | Narrative | Performed At | + + + | Ordered by an | | | unspecified provider. | | + + + XR Chest AP Portable (11/08/2018 2:52 PM PDT) + + | Specimen | + + | | + + + + + | Narrative | Performed At | + + + | EXAM: XR CHEST AP PORTABLE dated 11/08/2018 2:52 PM HISTORY: | [facility] | | DIFFICULTY BREATHING Comparison: 09/20/2018 TECHNIQUE: A single | | | portable view of the chest. FINDINGS: The lungs are | | | symmetrically aerated. Hyperexpansion suggests chronic obstructive | | | pulmonary disease. They are clear. There are no large pleural | | | effusions. There is no pneumothorax. The cardiac and mediastinal | | | contours are not enlarged. No acute osseous abnormalities. | | | IMPRESSION - Hyperexpansion suggests chronic obstructive pulmonary | | | disease. Dictated and Signed by: Dick Becerril MD | | | Electronically signed: 11/08/2018 2:54 PM | | + + + + + | Procedure Note | + + | Jhoan, Rad Results In - 11/08/2018 2:57 PM PDT EXAM: XR CHEST AP PORTABLE dated | | 11/08/2018 2:52 PMHISTORY: DIFFICULTY BREATHINGComparison: 09/20/2018TECHNIQUE: A single | | portable view of the chest.FINDINGS:The lungs are symmetrically aerated. Hyperexpansion | | suggests chronicobstructive pulmonary disease. They are clear. There are no large | | pleuraleffusions. There is no pneumothorax. The cardiac and mediastinal contours | | arenot enlarged. No acute osseous abnormalities. IMPRESSION -Hyperexpansion suggests | | chronic obstructive pulmonary disease.Dictated and Signed by: Dick Becerril MD | | Electronically signed: 11/08/2018 2:54 PM | |FINDINGS: | | | |The lungs are symmetrically aerated. Hyperexpansion suggests chronic | |obstructive pulmonary disease. They are clear. There are no large pleural | |effusions. There is no pneumothorax. The cardiac and mediastinal contours are | |not enlarged. No acute osseous abnormalities. | | | |IMPRESSION - | | | |Hyperexpansion suggests chronic obstructive pulmonary disease. | | | |Dictated and Signed by: Dick Becerril MD | | Electronically signed: 11/08/2018 2:54 PM | + + + +---------+ + + | Performing | Address | City/State/Zipcode | Phone Number | | Organization | | | | + +---------+ + + | [facility] | | | | + +---------+ + + CBC with Differential (11/08/2018 2:45 PM PDT) + + + + + + | Component | Value | Ref Range | Performed | Pathologist | | | | | At | Signature | + + + + + + | WBC | 11.0 | 4.0 - 11.0 K/uL | [facility] | | | | | | [facility] | | | | [facility] | | | [facility] - | | | | | | [facility] | | + + + + + + | RBC | 5.33 (H) | 3.70 - 5.20 | [facility] | | | | | M/uL | [facility] | | | | | | [facility] | | | | | | [facility] - | | | | | | LAB[facility]ATORY | | + + + + + + | Hemoglobin | 16.2 (H) | 11.5 - 16.0 | [facility] | | | | | g/dL | [facility] | | | | | | [facility] | | | | | | [facility] - | | | | | | [facility]ATORY | | + + + + + + | Hematocrit | 47.1 (H) | 34.0 - 47.0 % | [...] + + + + | RDW-SD | 40.6 | 35.1 - 46.3 fL | [facility] | | | | | | [facility] | | | | | [facility] | | | | [facility] - | | | | | | [facility]ORY | | + + + + + + | Platelet | 286 | 140 - 440 K/uL | [facility] | | | Count | | | [facility] | | | | | | [facility] | | | | [facility] - | | | | | | [facility]ATORY | | + + + + + + | MPV | 10.0 | 6.5 - 12.4 fL | [facility] | | | | | | [facility] | | | | | | [facility] | | | | [facility] - | | | | | | [facility]ATORY | | + + + + + + | % | 55.5 | 45.0 - 82.0 % | [facility] | | | Neutrophils | | | [facility] | | | | | | [facility] | | | | | | [facility] - | | | | | | LABORATORY | | + + + + + + | % | 28.4 | 20.0 - 45.0 % | [facility] | | | Lymphocytes | | | [facility] | | | | | | [facility] | | | | | | [facility] - | | | | | | LAB[facility]ATORY | | + + + + + + | % Monocytes | 6.4 | 4.0 - 12.0 % | [facility] | | | | | | [facility] | | | | | | [facility] | | | | | [facility] - | | | | | | [facility]ATORY | | + + + + + + | % | 7.9 (H) | 0.0 - 5.0 % | [facility] | | | Eosinophils | | | [facility] | | | | | | [facility] | | | | | | [facility] - | | | | | | LAB[facility]ATORY | | + + + + + + | % Basophils | 1.5 (H) | 0.0 - 1.0 % | [...] | | | Granulocyte | | | [facility] | | | s | | | [facility]ICAL | | | | | | CENTER - | | | | | | LABORATORY | | + + + + + + | Absolute | 6.09 | 1.80 - 8.50 | [facility] | | | Neutrophils | | K/uL | [facility] | | | | | | [facility] | | | | | | [facility] - | | | | | | LABORATORY | | + + + + + + | Absolute | 3.11 | 0.60 - 3.20 | [facility] | | | Lymphocytes | | K/uL | [facility] | | | | | | [facility] | | | | | | [facility] - | | | | | | LABORATORY | | + + + + + + | Absolute | 0.70 | 0.00 - 1.00 | [facility] | | | Monocytes | | K/uL | [facility] | | | | | | [facility] | | | | | | [facility] - | | | | | | LABORATORY | | + + + + + + | Absolute | 0.86 (H) | 0.00 - 0.40 | [facility] | | | Eosinophils | | K/uL | [facility] | | | | | | [facility] | | | | | | [facility] - | | | | | | LABORATORY | | + + + + + + | Absolute | 0.16 (H) | 0.00 - 0.10 | [facility] [...] | [facility] | | | | | WBCs | [facility] | | | | | | [facility] | | | | | | [facility] - | | | | | | LABORATORY | | + + + + + + | Absolute | 0.00 | 0.00 - 0.01 | [facility] | | | nRBC | | K/uL [...] [address] | [place] | [phone] | | [facility] | | [id number] | | | - LABORATORY | | | | + + + + + Basic Metabolic Panel (11/08/2018 2:45 PM PDT) + + + + + + | Component | Value | Ref Range | Performed | Pathologist | | | | | At | Signature | + + + + + + | Na | 141 | 136 - 145 | [facility] | | | | | mmol/L | [facility] | | | | | | [facility] | | | | | | [facility] - | | | | | | LABORATORY | | + + + + + + | K | 3.6 | 3.4 - 5.1 | [facility] | | | | | mmol/L | [facility] | | | | | | [facility] | | | | | | [facility] - | | | | | | LABORATORY | | + + + + + + | Cl | 110 (H) | 98 - 107 mmol/L | [facility] | | | | | | [facility] | | | | | | [facility] | | | | | | [facility] - | | | | | | LABORATORY | | + + + + + + | CO2 | 26 | 20 - 31 mmol/L | [facility] | | | | | | [facility] | | | | | | [facility] | | | | | | [facility] - | | | | | | LABORATORY | | + + + + + + | Anion Gap | 5 | 3 - 16 mmol/L | [facility] | | | | | | [facility] | | | | | | [facility] | | | | | | [facility] - | | | | | | LABORATORY | | + + + + + + | Glucose | 107 (H) | 60 - 106 mg/dL | [facility] | | | | | | [facility] | | | | | | [facility] | | | | | | [facility] - | | | | | | LABORATORY | | + + + + + + | BUN | 12 | 9 - 23 mg/dL | [facility] | | | | | | [facility] | | | | | | [facility] | | | | | | CENTER - | | | | | | LABORATORY | | + + + + + + | Creatinine | 0.72 | 0.55 - 1.02 | [facility] | | | | | mg/dL | [facility] | | | | | | [facility] | | | | | | CENTER - | | | | | | LABORATORY | | + + + + + + | eGFR if not | >60Comment: GLOMERULAR | >=60 | [facility] | | | | FILTR[facility] | mL/min/1.73m2 | [facility] | | | [place] | RATE,ESTIMATED | | MEDICAL | | | | mL/min/1.73q0Myvn than | | CENTER - | | [...] + + | Calcium | 9.2 | 8.7 - 10.4 | [facility] | | | | | mg/dL | [facility] | | | | | | [facility] | | | | | | [facility]ENTER - | | | | | | LABORATORY | | + + + + + + | BUN/Creatin | 16.7 | | [facility] | | | ine [...] + | [facility] | [address] | [place] | [phone] | | [facility] | | [id number] | | | - LABORATORY | | | | + + + + + from Last 3 Months Insurance + +--------+ +--------+ +---------+--------+ | Payer | Benefi | Subscriber | Effect | Phone | Address | Type | | | t Plan | ID | jeremiah | | | | | | / | | Dates | | | | | | Group | | | | | | + +--------+ +--------+ +---------+--------+ | [employer] | [employer] | [id number] | 02/12/ | [phone] | | [employer] | | MEDICAID HMO | HEALTH | | 2017-P | 1 | | id | | | MDCD | | resent | | | | | | [place]MO [place] | | | | | | + +--------+ +--------+ +---------+--------+ + +--------+ +--------+ + + | Guarantor Name | Accoun | Relation to | Date | Phone | Billing Address | | | t Type | Patient | of | | | | | | | | | | + +--------+ +--------+ + + | Pepper Hand | Person | Self | [birth year] | [address] | | [place] | [place]ris | | 1960 | [phone] | [place] [address] | | | [place] | | | [address] (Home) | | + +--------+ +--------+ + + Advance Directives + + + + + | Type | Date Recorded | Patient | Explanation | | | | 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
--- OUTSIDE RECORDS SUMMARY | ~2019-02-03 | XMS | Encounter Summary ---
Demographics + + + | Address | [address] | | | [place] [address] | + + + | Home Phone | | + + + | Preferred Language | Unknown | + + + | Marital Status | | + + + | Baptism Affiliation | 1041 | + + + | Race | Unknown | + + + | Ethnic Group | Unknown | + + + Author + + + | Author | [facility] | | | and [place]ir[place] | + + + | Organization | [facility] | | | [...] Team Providers + +------+ + | Care Manager Culture Name | Role | Phone | + +------+ + | Scot Anton MD | PCP | | + +------+ + Reason for Visit + + + | Reason | Comments | + + + | Anxiety | states that the anxiety level is off the scale. Medication | | | doesn't seem to be helping. | + + + | Shoulder Pain | complains of right shoulder pain. Injured it Sunday when she | | | moved a mattress. Hurts to lift her arm. 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 | + + + Encounter Details +--------+---------+ + + + | Date | Type | Department | Care Team | Description | +--------+---------+ + + + | 03/04/ | Office | [facility] | Scot Anton, | Depression with | | 2018 | Visit | [facility] | [address] | anxiety (Primary | | | | [address] | [place] | Dx); Insomnia, | | | | [place] | [id number] | unspecified type; | | | | [address] | | Acute pain of right | | | | [phone] | | shoulder; Encounter | | | | | | for screening | | | | | | mammogram for breast | | | | | | cancer | +--------+---------+ + + + Social History + + [...] No; Counseling Given: Yes | | Comments: Previously tried Chantix, patch | [...] + + + | Blood Pressure | 118/90 | 03/04/2018 9:49 AM | | | | | PST | | + + + + + | Pulse | 89 | 03/04/2018 9:49 AM | | | | | PST | | + + + + + | Temperature | 36.6 C (97.8 F) | 03/04/2018 9:49 AM | | | | | PST | | + + + + + | Respiratory Rate | - | - | | + + + + + | Oxygen Saturation | 92% | 03/04/2018 9:49 AM | | | | | PST | | + + + + + | Inhaled Oxygen | - | - | | | Concentration | | | | + + + + + | Weight | 65.8 kg (145 lb 1 | 03/04/2018 9:49 AM | | | | oz) | PST | | + + + + + | Height | - | - | | + + + + + | Body Mass Index | 26.53 | 01/20/2018 4:33 PM | | | | | PDT | | + + + + + documented in this encounter Patient Instructions Patient Instructions Scot Anton MD - 03/04/2018 10:00 AM PST Try the trazodone at bedtime as needed to help with sleep. Continue the Lexapro as you are doing. You can use Tylenol (acetaminophen) 500-1,000 mg three times daily as needed for pain. Do not take more than 3,000 mg in 24 hours. Shoulder Impingement Syndrome The rotator cuff is a group of muscles and tendons that surround the shoulder joint. These muscles and tendons hold the arm in its joint. They help the shoulder move. The rotator cuff muscles and tendons can become irritated from repeated rubbing against the shoulder bone. T his is called shoulder impingement syndrome or rotator cuff tendonitis. If your case is mild, you may only need to rest the shoulder and then do certain exercises to strengthen the muscles. You can also take anti-inflammatory medicines. Steroid injections into the shoulder can ease inflammation. But you can have only a limited number of these. I f the condition gets worse, your shoulder muscles may become thin and weak. This can lead to a rotator cuff tear. Symptoms of shoulder impingement syndrome may include: Shoulder pain that gets worse when you raise your arm overhead Weakness of the shoulder muscles when you use your arm overhead Popping and clicking when you move your shoulder Shoulder pain that wakes you up at night, especially when you sleep on the affected shou lder Sudden pain in your shoulder when you lift or reach Home care Follow these tips to take care of yourself at home: Avoid activities that make your pain worse. These include raising your arms overhead, re peating the same motion over and over, or lifting heavy objects. Don t hold your arm in one position for a long time. Keep it moving. Put an ice pack on the sore area for 20 minutes every 1 to 2 hours for the first day. Yo u can make an ice pack by putting ice cubes in a plastic bag. Wrap the bag in a towel before putting it on your shoulder. A frozen bag of peas or something similar can also be used as an ice pack. Use the ice packs 3 to 4 times a day for the next 2 days. Continue using the ic e to relieve of pain and swelling as needed. You may take acetaminophen or ibuprofen to control pain, unless another medicine was pre scribed. If prednisone was prescribed, don t take anti-inflammatory medicines. If you have chronic liver or kidney disease or ever had a stomach ulcer or gastrointestinal bleeding, t alk with your doctor before using these medicines. After your symptoms ease, you may get physical therapy or start a home exercise program. This can strengthen your shoulder muscles and help your range of motion. Talk with your doc tor about what is best for your condition. Follow-up care Follow up with your healthcare provider, or as advised. When to seek medical advice Call your healthcare provider right away if any of these occur: Shoulder pain that gets worse and wakes you up at night Your shoulder or arm swells Numbness, tingling, or pain that travels down the arm to the hand Loss of shoulder strength Fever or chills Date Last Reviewed: 10/25/201519995982-8432 [employer]. [address] [place] [address], [place] [address]. All righ ts reserved. This information is not intended as a substitute for professional medical care. Always follow your healthcare professional's instructions. Exercises for Shoulder Flexibility: Adduction (Reaching Across) This stretch can help restore shoulder flexibility and relieve pain over time. When stretch ing, be sure to breathe deeply. And follow any special instructions from your doctor or phys ical therapist: 1. Put the hand from the side you want to stretch on your opposite shoulder. Your elbow oriana uld point away from your body. Try to raise your elbow as close to shoulder height as you ca n. 2. With your other hand, push the raised elbow toward the opposite shoulder. Avoid turning your head. Stop when you feel the stretch. Try to hold the stretch [id number]. 3. Work up to [id number] of this stretch,3times a day. Work up to holding the stret ch for30 to 60 seconds. Note:Be sure to push your elbow across your chest, not up toward your chin. Over time, tr y to push your elbow farther across your chest to enhance the stretch. Frozen shoulder Frozen shoulder is another name for adhesive capsulitis, which causes restricted movement i n the shoulder. If you have frozen shoulder, this stretch may cause discomfort, especially w hen you first get started. A few months may pass before you achieve the results you want. On ce your shoulder heals, itrarely becomes frozen again. So stick to your stretching program . If you have any questions, be sure to ask your doctor. Date Last Reviewed: 05/24/201719996430-2012 [employer]. [address] [place] [address], [place] [address]. All righ ts reserved. This information is not intended as a substitute for professional medical care. Always follow your healthcare professional's instructions. Exercises for Shoulder Flexibility: Wall Walk Improving your flexibility can reduce pain. Stretching exercises also can help increase you r range of pain-free motion. Breathe normally when you exercise. Use smooth, fluid movements . Note:Follow any special instructions you are given. If you feel pain, stop the exercise. If the pain continues after stopping, call your healthcare provider: Stand with your shoulder [id number] from the wall. Raise your arm to shoulder level and gently walk your fingers up the wall as high as you can. Hold for a few seconds. Then walk your fingers back down. Repeat 3times. Move closer to the wall as you repeat. Build up to holding each stretch [id number]. Caution:Do this stretch only if your healthcare provider recommends it. Don t do it whe n you are first injured. Date Last Reviewed: 05/24/201719993429-7123 [employer]. [address] [place] [address]. All righ ts reserved. This information is not intended as a substitute for professional medical care. Always follow your healthcare professional's instructions. documented in this encounter Progress Notes Pretty Duval LPN - 03/04/2018 10:00 AM PSTFormatting of this note might be different f rom the original. Administrations This Visit ketorolac (TORADOL) injection 30 mg Admin Date 03/04/2018 Action Given Dose 30 mg Route Intramuscular Administered By Pretty Duval LPN cot Anton M D - 03/04/2018 10:00 AM PST Subjective: Patient ID: Pepper Hand is a 57 y.o. female who is here today for Anxiety (states that the anxiety level is off the scale. Medication doesn't seem to be helping.) and Shoul karol Pain (complains of right shoulder pain. Injured it Sunday when she moved a mattress. H urts to lift her arm. 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 Anxiety: She continues to take lexapro 20 mg daily. She did not tolerate buspirone or bupropion. Buspirone made her feel more anxious. Bupropion caused palpitations. She desc ribes her mood as "depressed." She has an anxiety attack daily. Estimates 3 times per samir h they are debilitating. Hydroxyzine does help severe flares, but makes her sleepy. She av erages 5 hours of sleep per night - thinking of too many things she needs to get done. She resumed seeing [facility]. She isn't real happy with them. She wonders if biofeedback would help anxiety. She wonders if estrogen would help her. She is now living with friends. One friend is "nuts." But endorses safety. Her mom austin dubois had a stroke. She is recovering in a SNF. No SI/HI, mike. No drug or alcohol use. No hot flashes, vaginal dryness, discharge. No h/o breast cancer, DVT, CVA, CHD, liver dis ease. 2 days ago she put together a dog kennel and then was moving a mattress and developed right shoulder pain the following morning. Pain located laterally and radiates into her neck and down her arm. It hurts to raise her arm, twist her neck L/R. She has numbness and tinglin g down her arm into index and middle fingers. Her arm feels weak. Tylenol helps a little. She avoids ibuprofen due to h/o renal injury in the past. No injury. She refuses flu vaccine Patient's medications, allergies, past medical, surgical, social and family histories were obtained and reviewed as appropriate. Review of Systems Objective: BP 118/90 | Pulse 89 | Temp 36.6 C (97.8 F) (Temporal) | Wt 65.8 kg (145 lb 1 oz) | LMP (LMP Unknown) | SpO2 92% | BMI 26.53 kg/m Physical Exam Constitutional: Very pleasant, well developed, NAD Cardiovascular: Intact distal pulses. Musculoskeletal: Right SHOULDER Observation/inspection: Effusion: no Ecchymosis: No Erythema: No Atrophy (rotator cuff): No Scapular winging: No Clavicular deformity: No AC deformity: No Palpation: no sternoclavicular joint tenderness No clavicle tenderness No acromioclavicular tenderness No trapezius tenderness mild bicepital groove tenderness no greater tuberosity Range of motion: Active Range of Motion: R L Abduction ~150 170 Ext. Rotation 50 50 Int. Rotation T12 T12 Forward flexion ~90 170 Passive Range of Motion: R Abduction ~150 Forward flexion ~170 Strength: Abduction (supraspinatus): 5 External rotation (teres minor/infraspinatus): 5 Internal rotation (subscapularis): 5 Impingement Tests: Otto: Neg Empty can: Weakly positive Lift Off: Positive Biceps: Speed's: weakly positive AC joint: Crossover: Neg Skin: No lesions identified; clean, dry, intact Neurologic: Sensation and motor strength is grossly normal and nonfocal Vascular: Radial pulses 2+, brisk capillary refill Neurological: Cervical spine: Spurling's: Neg Psychiatric: Well groomed and dressed. Good eye contact. Thought organized and linear. Full affect. Insight fair. Assessment & Plan: 1. Depression with anxiety: Under controlled. Complicated by intermittent homelessness. I n past there was a question of bipolar - but no manic symptoms or cycling in over 20 years. Denies substance abuse. Citalopram, Zoloft, Effexorwere either ineffective or not tole rated. Paxil may have been helpful. Guns are out of home. Endorses safety. - Discussed changing lexapro to Cymbalta, she declines - Discussed adding seroquel at bedtime, she declines - Continue Lexapro, counseling - Discussed HRT. Given smoking history, lack of lipid panel or mammogram - recommended [facility]. She was comfortable with this plan. She would not need progesteron - LEXAPRO 20 MG tablet; Take 1 tablet by mouth Daily. To help mood and anxiety Dispense: 3 0 tablet; Refill: 2 - traZODone (DESYREL) 50 mg tablet; Take 1 tablet by mouth nightly as needed for Insomnia. Dispense: 30 tablet; Refill: 2 2. Insomnia, unspecified type - traZODone (DESYREL) 50 mg tablet; Take 1 tablet by mouth nightly as needed for Insomnia. Dispense: 30 tablet; Refill: 2 Educated on side effects 3. Acute pain of right shoulder: Likely some rotator cuff tendonitis, biceps tendonitis fr om recent activity - Educated on shoulder care, stretching, tylenol dosing - If not improving in 10-14 days will refer for PT - ketorolac (TORADOL) injection 30 mg; Inject 1 mL into the muscle once. 4. Encounter for screening mammogram for breast cancer - [facility] Screening Bilateral; Future Return in about 1 month (around 04/04/2018). Joss Anton MD documented in this e ncounter Plan of Treatment Not on filedocumented as of this encounter Results [facility] Screening Bilateral (10/31/2018 2:59 PM PDT) + + | Specimen | + + | | + + + + + | Narrative | Performed At | + + + | BILATERAL DIGITAL SCREENING MAMMOGRAM WITH COMPUTER-AIDED DETECTION | [facility] | | AND TOMOSYNTHESIS 10/31/2018 2:58 PM CLINICAL HISTORY: Bilateral | | | screening exam. Asymptomatic, postmenopausal. Reported history of | | | breast cancer in a cousin. COMPARISON: 2016 and previous | | | mammograms dating back to 2004 FINDINGS: Breast composition is | | | comprised of scattered fibroglandular densities. There are similar | | | asymmetries in the breasts. Few round calcifications persist in the | | | right breast and are unchanged. There is no suspicious | | | microcalcification or other evidence of malignancy. Jordi images | | | demonstrate no suspicious mass or architectural distortion. Images | | | were reviewed with CAD. IMPRESSION - 1. BIRADS 2, BENIGN. | | | RECOMMENDATION: ANNUAL SCREENING MAMMOGRAPHY. Dictated and Signed | | | by: Austin Gross MD Electronically signed: 11/01/2018 8:37 AM | | + + + + + | Procedure Note | + + | Jhoan, Rad Results In - 11/01/2018 8:40 AM PDT BILATERAL DIGITAL SCREENING MAMMOGRAM | | WITH COMPUTER-AIDED DETECTION ANDTOMOSYNTHESIS 10/31/2018 2:58 PMCLINICAL HISTORY: | | Bilateral screening exam. Asymptomatic, postmenopausal. Reported history of breast | | cancer in a cousin.COMPARISON: 2016 and previous mammograms dating back to 2004FINDINGS: | | Breast composition is comprised of scattered fibroglandulardensities. There are | | similar asymmetries in the breasts. Few roundcalcifications persist in the right breast | | and are unchanged. There is nosuspicious microcalcification or other evidence of | | malignancy. Jordi images demonstrate no suspicious mass or architectural distortion. | | Imageswere reviewed with CAD.IMPRESSION -1. BIRADS 2, BENIGN.RECOMMENDATION: ANNUAL | | SCREENING MAMMOGRAPHY.Dictated and Signed by: Austin Gross MD Electronically signed: | | 11/01/2018 8:37 AM | |suspicious microcalcification or other evidence of malignancy. | | | |Jordi images demonstrate no suspicious mass or architectural distortion. Images | |were reviewed with CAD. | | | |IMPRESSION - | |1. BIRADS 2, BENIGN. | | | |RECOMMENDATION: ANNUAL SCREENING MAMMOGRAPHY. | | | |Dictated and Signed by: Austin Gross MD | | Electronically signed: 11/01/2018 8:37 AM | + + + +---------+ + + | Performing | Address | City/State/Zipcode | Phone Number | | Organization | | | | + +---------+ + + | [facility] | | | | + +---------+ + + documented in this encounter Visit Diagnoses + + | Diagnosis | + + | Depression with anxiety - Primary Dysthymic disorder | + + | Insomnia, unspecified type | + + | Acute pain of right shoulder | + + | Encounter for screening mammogram for breast cancer | + + documented in this encounter Administered Medications + +--------+ +-------+------+ + | Medication Order | MAR | Action | Dose | Rate | Site | | | Action | Date | | | | + +--------+ +-------+------+ + | ketorolac (TORADOL) injection | Given | 03/04/20 | 30 mg | | Deltoid- | | 30 mg 30 mg, Intramuscular, | | 18 10:59 | | | Right | | ONCE, 03/04/18 at 1100, For 1 | | AM PST | | | | | dose | | | | | | + +--------+ +-------+------+ + +---+---+ | | | +---+---+ documented in this encounter
--- OUTSIDE RECORDS SUMMARY | ~2019-02-03 | XMS | Encounter Summary ---
Demographics + + + | Address | [address] | | | [place] [address] | + + + | Home Phone | | + + + | Preferred Language | Unknown | + + + | Marital Status | | + + + | Spiritism Affiliation | 1041 | + + + | Race | Unknown | + + + | Ethnic Group | Unknown | + + + Author + + + | Author | [facility] | | | and [place]ir[place] | + + + | Organization | [facility] | | | [...] Team Providers + +------+ + | Care Water Purifier Name | Role | Phone | + +------+ + | Scot Anton MD | PCP | | + +------+ + Encounter Details +--------+ + + + + | Date | Type | Department | Care Team | Description | +--------+ + + + + | 02/22/ | Episode | [facility] | [facility] | | | 2016 | Changes | GASTROENTEROLOGY | [facility] | | | | | [address] | | | | | | [address] [place] | | | | | | [address] | | | | | | [phone] | | | +--------+ + + + [...]
--- OUTSIDE RECORDS SUMMARY | ~2019-02-03 | XMS | Encounter Summary ---
Demographics + + + | Address | [address] | | | [place] [address] | + + + | Home Phone | | + + + | Preferred Language | Unknown | + + + | Marital Status | | + + + | Jainism Affiliation | 1041 | + + + | Race | Unknown | + + + | Ethnic Group | Unknown | + + + Author + + + | Author | [facility] | | | and Samirana | + + + | Organization | [facility] | | [...] Team Providers + +------+ + | Care Distribution Center Manager Name | Role | Phone | + +------+ + | Pepper Kamara | PCP | | + +------+ + Encounter Details +--------+ + + + + | Date | Type | Department | Care Team | Description | +--------+ + + + + | 12/05/ | [facility] | [facility] | Pepper Kamara | | | 2011 | Encounter | MED CTR XRAY [address] | | | | | [place] | [place] | | | | | [place] [address] | [address] | | | | | [phone] | | | +--------+ + + + [...] + + +---------+ + + | albuterol (PROAIR | 2 puffs inhaled | | 0 | 12/06/19 | | | HFA) 90 mcg/puff | every 4 hours as | | | 12 | 3 | | inhaler | needed for shortness | | | | | | | of breath | | | | | + + + +---------+ + + | atenolol | Take 25 mg by mouth | | 0 | 03/22/20 | | | (TENORMIN) 25 mg | Daily. | | | 10 | 3 | | tablet | | | | | | + + + +---------+ + + | calcium-vitamin D | One tab twice a day | | 0 | 12/13/19 | | | (CALCIUM 600 + D) | | | | 12 | 2 | | 600-400 MG-UNIT TABS | | [...] | | 12 | 7 | | 56990 UNITS capsule | mouth once weekly | | | | | | | for 12 weeks | | | | | + + + +---------+ + + | escitalopram | Take 20 mg by mouth | | 0 | 12/06/19 | | | (LEXAPRO) 20 mg | Daily. | | | 12 | 3 | | tablet | | [...] + | CBC WITH | Routin | 12/06/2011 | | Results for this | | DIFFERENTIAL | e | 10:40 AM | | procedure are in the | | | | PDT | | results section. | + +--------+ + + + | HEMOGLOBIN A1C | Routin | 12/06/2011 | | Results for this | | | e | 10:40 AM | | procedure are in the | | | | PDT | | results section. | + +--------+ + + + | RENAL FUNCTION PANEL | Routin | 12/06/2011 | | Results for this | | | e | 10:40 AM | | procedure are in the | | | | PDT | | results section. | + +--------+ + + + | US RENAL LIMITED | | 12/06/2011 | | Results for this | | | | 9:49 AM | | procedure are in the | | | | PDT | | results section. | + +--------+ + + + documented in this encounter Results Renal Function Panel (12/06/2011 10:40 AM PDT) + + + + + + | Component | Value | Ref Range | Performed | Pathologist | | | | | At | Signature | + + + + + + | Glucose | 97 | 70 - 109 mg/dL | [facility] [...] + + + + + + | Phosphorus | 4.0 | 2.5 - 4.6 mg/dL | [facility] | | [facility] - | | | | | | LABORATORY | | + + + + + + | Albumin | 3.9 | 3.2 - 5.0 gm/dL | [facility] | | | | | [facility] | [facility] | | | | | | [facility] - | | | | | | LABORATORY | | + + + + + + | BUN | 12 | 7 - 18 mg/dL | [facility] | | | | | [facility] | | | | | | [facility] | | | | | | [facility] - | | | | | | LABORATORY | | + + + + + + | Creatinine | 0.88 | 0.60 - 1.30 | [facility] | | | | | mg/dL | [facility] | | | | | | [facility] | | | | | | CENTER - | | | | | | LABORATORY | | + + + + + + | Estimated | >60Comment: For | >60 mL/min/A | [facility] | | | GFR | -Americans, | | [facility] | | | | please multiply [...] + + + + | BUN/Creatin | 13.6 | 12 - 20 | [facility] | | | ine Ratio | | | [facility] | | | | | | [facility]ICAL | | | | | | CENTER - | | | | | | LABORATORY | | + + + + + + | Na | 135 (L) | 136 - 149 mEq/L | [facility] | | | | | [facility] | | | | | | [facility] | | | | | | CENTER - | | | | | | LABORATORY | | + + + + + + | K | 3.9 | 3.5 - 5.1 mEq/l | [facility] | | | | | [facility] | | | | | | [facility] | | | | | | CENTER - | | | | | | LABORATORY | | + + + + + + | Cl | 103 | 98 - 109 mEq/l | [facility] | | | | | [facility] | | | | [facility] | [facility] | | | | | | CENTER - | | | | | | LABORATORY | | + + + + + + | CO2 | 27 | 24 - 31 mEq/L | [facility] | | | | | [facility] | | | | | | [facility] | | | | | | CENTER - | | | | | | LABORATORY | | + + + + + + | Anion Gap | 8.9 | 6.0 - 17.0 | [facility] | [...] + | [facility] | [address] | [place], [place] | [phone] | | [facility] | | [address] | | | - LABORATORY | | | | + + + + + | [facility] | [address] | [place] | | | [facility] | | [address] | | | - LABORATORY | | | | + + + + + CBC with Differential (12/06/2011 10:40 AM PDT) + + + + + + | Component | Value | Ref Range | Performed | Pathologist | | | | | At | Signature | + + + + + + | WBC | 10.7 | 4.0 - 11.0 K/uL | [facility] | | | | | [facility] | | | | | | [facility] | | | | | | CENTER - | | | | | | LABORATORY | | + + + + + + | RBC | 5.30 (H) | 3.70 - 5.20 | [facility] | | | | | M/uL | [facility] | | | | | | MEDICAL | | | | | | CENTER - | | | | | | LABORATORY | | + + + + + + | Hemoglobin | 16.3 (H) | 11.5 - 16.0 | [facility] | | | | | gm/dL | [facility] | | | | | | MEDICAL | | | | | | CENTER - | | | | | | LABORATORY | | + + + + + + | Hematocrit | 47.7 (H) | 34.0 - 47.0 % | [facility] | | | | | [facility] | | | | | | [facility] | | | | | | CENTER - | | | | | | LABORATORY | | + + + + + + | MCV | 90.0 | 83.0 - 101.0 fL | [facility] | | | | | [facility] | | | | | | [facility] | | | | | | CENTER - | | | | | | LABORATORY | | + + + + + + | MCH | 30.7 | 28.0 - 35.0 pg | [facility] [...] + + + + | RDW-CV | 13.7 | <15.0 % | [facility] | | | | | [facility] | | | | | | MEDICAL | | | | | | CENTER - | | | | | | LABORATORY | | + + + + + + | Platelet | 296 | 140 - 440 K/uL | [facility] | | | Count | | | [facility] | | | | | | MEDICAL | | | | | | CENTER - | | | | | | LABORATORY | | + + + + + + | % | 51.3 | 45 - 75 % | [facility] | | | Neutrophils | | | [facility] | | | | | | MEDICAL | | | | | | CENTER - | | | | | | LABORATORY | | + + + + + + | % | 37.6 | 20 - 45 % | [facility] | | | Lymphocytes | | | [facility] | | | | | | MEDICAL | | | | | | CENTER - | | | | | | LABORATORY | | + + + + + + | % Monocytes | 7.9 | 4 - 12 % | [facility] | | | | | | [facility] | | | | | | MEDICAL | | | | | | CENTER - | | | | | | LABORATORY | | + + + + + + | % | 2.0 | 0 - 5 % | [facility] | | | Eosinophils | | | [facility] | | | | | | MEDICAL | | | | | | CENTER - | | | | | | LABORATORY | | + + + + + + | % Basophils | 1.2 (H) | 0 - 1 % | [facility] | | | | | | [facility] | | | | | | MEDICAL | | | | | | CENTER - | | | | | | LABORATORY | | + + + + + + | Absolute | 5.5 | 1.5 - 6.6 K/uL | [facility] | | | Neutrophils | | | [facility] | | | | | | MEDICAL | | | | | | CENTER - | | | | | | LABORATORY | | + + + + + + | Absolute | 4.0 (H) | 0.6 - 3.2 K/uL | [facility] | | | Lymphocytes | | | [facility] | | | | | | MEDICAL | | | | | | CENTER - | | | | | | LABORATORY | | + + + + + + | Absolute | 0.8 | 0.0 - 1.0 K/uL | [facility] | | | Monocytes | | | [facility] | | | | | | MEDICAL | | | | | | CENTER - | | | | | | LABORATORY | | + + + + + + | Absolute | 0.2 | 0.0 - 0.4 K/uL | [facility] | | | Eosinophils | | | [facility] | | | | | | MEDICAL | | | | | | CENTER - | | | | | | LABORATORY | | + + + + + + | Absolute | 0.1 | 0.0 - 0.1 K/uL | [facility] | | | Basophils | | | [facility] | | [...] + | [facility] | [address] | [place], [place] | [phone] | | [facility] | | [address] | | | - LABORATORY | | | | + + + + + | [facility] | [address] | [place], [place] | | | [facility] | | [address] | | | - LABORATORY | | | | + + + + + Hemoglobin A1C (12/06/2011 10:40 AM PDT) + +-------+ + + + | Component | Value | Ref Range | Performed | Pathologist | | | | | At | Signature | + +-------+ + + + | Hemoglobin | 5.1 | 4.3 - 5.8 % | [facility] | | | A1c | | | [facility] | | [...] + | [facility] | [address] | [place] | [phone] | | [facility] | | [address] | | | - LABORATORY | | | | + + + + + | [facility] | [address] | [place] | | | [facility] | | [address] | | | - LABORATORY | | | | + + + + + US Renal Limited (12/06/2011 9:49 AM PDT) + + | Specimen | + + | | + + + + + | Narrative | Performed At | + + + | [facility] | [facility] | | [address] | [facility] | | RENAL ULTRASOUND CLINICAL | DIAG IMG | | HISTORY: DECREASED RENAL FUNCTION. COMPARISON: Ultrasound of | | | the abdomen 07/21/2010. TECHNIQUE: Madrid scale, color Doppler, | | | and Doppler waveform imaging of the kidneys and bladder perfor med by | | | a titrator. FINDINGS: The right kidney is smooth in contour | | | and normal in echotexture, without evidence of hydro nephrosis. The | | | right kidney measures 10.8 x 3.9 x 4.8 cm. The left kidney is | | | smooth in contour and exhibits normal echotexture. There is no | | | hydronephrosis. T he left kidney measures 12.5 cm in length x 4.6 x | | | 4.6 cm. The bladder is well filled with urine and is normal in | | | appearance with smooth lombardi. Bilateral urete ral jets were seen. | | | The post void residual volume is 5 mL. IMPRESSION: 1. NORMAL | | | ULTRASOUND EVALUATION OF THE KIDNEYS AND BLADDER. Dictated | | | Date/Time: 12/06/2011 12:25 Transcribed Date/Time: 12/06/2011 | | | 12:30 Clean Up Supervisor: <Electronically Signed by Luis Plasencia | | | MD Ana M> 12/07/11 0728 | | + + + + + | Procedure Note | + + | Jhoan, Rad Conversion - 05/02/2013 6:00 PM Merged with [facility] | | Diagnostic Imaging Department [address] [place] [address] | | RENAL ULTRASOUND CLINICAL HISTORY: DECREASED RENAL | | FUNCTION. COMPARISON: Ultrasound of the abdomen 07/21/2010. TECHNIQUE: Madrid scale, | | color Doppler, and Doppler waveform imaging of the kidneys and bladder performed by a | | titrator. FINDINGS: The right kidney is smooth in contour and normal in echotexture, | | without evidence of hydronephrosis. The right kidney measures 10.8 x 3.9 x 4.8 cm. The | | left kidney is smooth in contour and exhibits normal echotexture. There is no | | hydronephrosis. The left kidney measures 12.5 cm in length x 4.6 x 4.6 cm. The bladder | | is well filled with urine and is normal in appearance with smooth lombardi. Bilateral | | ureteral jets were seen. The post void residual volume is 5 mL. IMPRESSION: 1. NORMAL | | ULTRASOUND EVALUATION OF THE KIDNEYS AND BLADDER. Dictated Date/Time: 12/06/2011 | | 12:25Transcribed Date/Time: 12/06/2011 12:30Transcriptionist: <Electronically | | Signed by Luis Viramontes MD> 12/07/11727 | | | |FINDINGS: The right kidney is smooth in contour and normal in echotexture, without evidenc e of hydro | |nephrosis. The right kidney measures 10.8 x 3.9 x 4.8 cm. | | | |The left kidney is smooth in contour and exhibits normal echotexture. There is no hydronep hrosis. T | |he left kidney measures 12.5 cm in length x 4.6 x 4.6 cm. | | | |The bladder is well filled with urine and is normal in appearance with smooth lombardi. Bilat eral urete | |ral jets were seen. The post void residual volume is 5 mL. | | | |IMPRESSION: | |1. NORMAL ULTRASOUND EVALUATION OF THE KIDNEYS AND BLADDER. | | | |Dictated Date/Time: 12/06/2011 12:25 | |Transcribed Date/Time: 12/06/2011 12:30 | |Clean Up Supervisor: | |<Electronically Signed by Luis Viramontes MD> 12/07/1128 | + + + +---------+ + + [...]
--- OUTSIDE RECORDS SUMMARY | ~2019-02-03 | XMS | Encounter Summary ---
Demographics + + + | Address | [address] | | | [place] [address] | + + + | Home Phone | | + + + | Preferred Language | Unknown | + + + | Marital Status | | + + + | Yazdanism Affiliation | 1041 | + + + | Race | Unknown | + + + | Ethnic Group | Unknown | + + + Author + + + | Author | [facility] | | | and Samirana | + + + | Organization | [facility] | | | [...] Team Providers + +------+ + | Care Language Translator Name | Role | Phone | + [...] + + | 12/22/ | Hospital | [facility] | Luis Law, | COPD with acute | | 2016 - | Encounter | [facility] | [address] | exacerbation (HCC) | | | | [address] | [facility], [place] | (Primary Dx); Acute | | 12/27/ | | [facility] [place] [address] | [address] | respiratory failure | | 2016 | | [phone] | | with hypoxia (HCC); | | | | | Jaquan Burk, | Acute bronchitis, | | | | | DO [address] | unspecified | | | | | MS LLH21 [place], | organism; | | | | | [place] [address] | Depression, | | | | | [phone] | unspecified | | | | | [...] discharge, she was on room air at [facility], but may need oxygen with exertion. She was advised that the most important thing she can do is quit smoking, which she plans t o do. She was discharged with a nicotine patch prescribed daily. BIPOLAR DISORDER UNSPECIFIED with depression Continue Lexapro, mood stable at discharge. Essential hypertension Blood pressure is appropriately controlled on atenolol Code Status: Full Code Disposition: [place] [facility] at discharge Discharge Condition: stable Follow-up Information Follow up with Scot Donaldson MD In 2 weeks. Specialty: Family Medicine Contact information: [address] [place] [id number] Discharge Medications New Medications Details albuterol-ipratropium 2.5-0.5 [...] daily. aka: Calcium 600 + D ergocalciferol 43755 UNITS capsule Notes to Patient: For bone [...] signed by: Thang Ibarra MD, 12/28/2015 9:50 [facility] documented in this encounter Medications at Time [...] | | 12 | 7 | | 95893 UNITS capsule | mouth once weekly | [...] might be different f rom the original. [facility] Service: Hospitalist Progress Note Pt: Pepper Guerrero [...] this chart may have been created with [email or web address] voice recognition software. Occasi onal wrong-word or sound-alike substitutions may have occurred due to the inherent joseph itations of voice recognition software. Please read the chart carefully and recognize, using context, where these substitutions have occurred. ab, Luis Zavala MD - 12/26/2015 9:[address] [facility] Service: Hospitalist Progress Note Pt: Pepper Hand [...] this chart may have been created with [email or web address] voice recognition software. Occasi onal wrong-word or sound-alike substitutions may have occurred due to the inherent joseph itations of voice recognition software. Please read the chart carefully and recognize, using context, where these substitutions have occurred. ab, Luis Zavala MD - 12/25/2015 8:[address] [facility] Service: Hospitalist Progress Note Pt: Pepper Hand AGE/SEX: 55 y.o. female ROOM: [facility]/446-01 : 1960 PCP: No Physician on file [...] this chart may have been created with [email or web address] voice recognition software. Occasi onal wrong-word or sound-alike substitutions may have occurred due to the inherent joseph itations of voice recognition software. Please read the chart carefully and recognize, using context, where these substitutions have occurred. alisaías, Luis Zavala MD - 12/24/2015 7:[address] [facility] Service: Hospitalist Progress Note Pt: Pepper Hand [...] Intake/Output Summary (Last 24 hours) at 12/24/15 0729 Last data filed at 12/24/15 0646 Gross [...] this chart may have been created with [email or web address] voice recognition software. Occasi onal wrong-word or [...] [address] | [place] | [phone] | | [facility] | | [address] | | | - LABORATORY | | [...] | [employer] Tube | | | [facility] | | | | | | [...] [address] | [place] | [phone] | | [facility] | | [address] | | | - LABORATORY | | [...] [facility] | | | | | | [facility] | | | | | | MEDICAL | | | | | | CENTER - | | | | | | LABORATORY | | + + + + + + | RBC | 4.58 | 3.70 - 5.20 | [facility] | | | | | M/uL | [facility] | | | | | [...] [address] | [place] | [phone] | | [facility] | | [address] | | | - LABORATORY | | [...] [address] | [place] | [phone] | | [facility] | | [address] | | | - LABORATORY | | [...] | | | POC | | | [facility] | | | | | [...] [address] | [place] | [phone] | | [facility] | | [address] | | | - LABORATORY | | [...] [address] | [place] | [phone] | | [facility] | | [address] | | | - LABORATORY | | [...] | | | POC | | | [facility] | | | | | [...] + | [facility] | [address] | [place] | [phone] | | [facility] | | [address] | | | - LABORATORY | | [...] [address] | [place] | [phone] | | [facility] | | [address] | | | - LABORATORY | | [...] | Basophils | | K/uL | [facility] | | | | | | [...] | [address] | [place] | [phone] | | [facility] | | [address] | | | - LABORATORY | | [...] 13 | 7 - 18 mg/dL | [facility] | | | | | | [facility] | | | | | | MEDICAL | | | | | | CENTER - | | | | | | LABORATORY | | + + + + + + | Creatinine | 0.82 | 0.60 - 1.30 | [facility] | | | | | mg/dL | [facility] | | | | | | MEDICAL | | | | | | CENTER - | | | | | | LABORATORY | | + + + + + + | eGFR if not | >60Comment: GLOMERULAR | >=60 | [facility] | | | | FILTRATION | mL/min/1.73m2 | [facility] | | | [place] | RATE,ESTIMATED | | MEDICAL | | | | mL/min/1.29g7Cbkt than | | CENTER - | | [...] [address] | [place] | [phone] | | [facility] | | [address] | | | - LABORATORY | | [...] [address] | [place] | [phone] | | [facility] | | [address] | | | - LABORATORY | | [...] | | | POC | | | [facility] | | | | | [...] [address] | [place] | [phone] | | [facility] | | [address] | | | - LABORATORY | | [...] + | [facility] | [address] | [place] | [phone] | | [facility] | | [address] | | | - LABORATORY | | [...] | | | POC | | | [facility] | | | | | [...] + | [facility] | [address] | [place] | [phone] | | [facility] | | [address] | | | - LABORATORY | | [...] [address] | [place] | [phone] | | [facility] | | [address] | | | - LABORATORY | | [...] | | Basophils | | K/uL | [facility] | | | | | [...] [address] | [place] | [phone] | | [facility] | | [address] | | | - LABORATORY | | [...] 13 | 7 - 18 mg/dL | [facility] | | | | | | [facility] | | | | | | MEDICAL | | | | | | CENTER - | | | | | | LABORATORY | | + + + + + + | Creatinine | 0.76 | 0.60 - 1.30 | [facility] | | | | | mg/dL | [facility] | | | | | | MEDICAL | | | | | | CENTER - | | | | | | LABORATORY | | + + + + + + | eGFR if not | >60Comment: GLOMERULAR | >=60 | [facility] | | | | FILTRATION | mL/min/1.73m2 | [facility] | | | [place] | RATE,ESTIMATED | | MEDICAL | | | | mL/min/1.06x3Fsip than | | CENTER - | | [...] [address] | [place] | [phone] | | [facility] | | [address] | | | - LABORATORY | | [...] [address] | [place] | [phone] | | [facility] | | [address] | | | - LABORATORY | | [...] [address] | [place] | [phone] | | [facility] | | [address] | | | - LABORATORY | | [...] [address] | [place] | [phone] | | [facility] | | [address] | | | - LABORATORY | | [...] | | | POC | | | [facility] | | | | | [...] + | [facility] | [address] | [place] | [phone] | | [facility] | | [address] | | | - LABORATORY | | [...] [address] | [place] | [phone] | | [facility] | | [address] | | | - LABORATORY | | [...] [address] | [place] | [phone] | | [facility] | | [address] | | | - LABORATORY | | [...] + | [facility] | [address] | [place] | [phone] | | [facility] | | [address] | | | - LABORATORY | | [...] | | | FILTRATION | mL/min/1.73m2 | [facility] | | | [place] | RATE,ESTIMATED | | MEDICAL | | | | mL/min/1.43j4Ardl than | | CENTER - | | [...] [address] | [place] | [phone] | | [facility] | | [address] | | | - LABORATORY | | [...] [address] | [place] | [phone] | | [facility] | | [address] | | | - LABORATORY | | [...] [address] | [place] | [phone] | | [facility] | | [address] | | | - LABORATORY | | [...] [address] | [place] | [phone] | | [facility] | | [address] | | | - LABORATORY | | [...] [address] | [place] | [phone] | | [facility] | | [address] | | | - LABORATORY | | [...] [address] | [place] | [phone] | | [facility] | | [address] | | | - LABORATORY | | [...] + | [facility] | [address] | [place] | [phone] | | [facility] | | [address] | | | - LABORATORY | | [...] + | [facility] | [address] | [place] | [phone] | | [facility] | | [address] | | | - LABORATORY | | [...] mL/min/1.73m2 | [facility] | | | [place] | RATE,ESTIMATED | | MEDICAL | | | | mL/min/1.66i3Hxcd than | | CENTER - | | [...] [address] | [place] | [phone] | | [facility] | | [address] | | | - LABORATORY | | [...] [address] | [place] | [phone] | | [facility] | | [address] | | | - LABORATORY | | [...] ST. | [address] | [place] | [phone] | | [facility] | | [address] | | | - LABORATORY | | [...] [address] | [place] | [phone] | | [facility] | | [address] | | | - LABORATORY | | [...] [address] | [place] | [phone] | | [facility] | | [address] | | | - LABORATORY | | [...] [address] | [place] | [phone] | | [facility] | | [address] | | | - LABORATORY | | [...] | | | | | | [employer] | | | | | [...] [address] | [place] | [phone] | | [facility] | | [address] | | | - LABORATORY | | [...] [address] | [place] | [phone] | | [facility] | | [address] | | | - LABORATORY | | [...] mL/min/1.73m2 | [facility] | | | [place] | RATE,ESTIMATED | | MEDICAL | | | | mL/min/1.80l6Oswz than | | CENTER - | | [...] + | [facility] | [address] | [place] | [phone] | | [facility] | | [address] | | | - LABORATORY | | [...] [address] | [place] | [phone] | | [facility] | | [address] | | | - LABORATORY | | [...] | | | | PITO VASQUES MD ([id number]) | | | | | | on [...] | | | C (101.5 F), Starting [facility] | | | | | | | [...] | | | | 30 Minutes, ONCE, [facility] 12/23/15 at | | | | | [...] PDT | | | | | ONCE, [facility] 12/23/15 at 1745, For 1 | | [...] PDT | | | | | ONCE, [facility] 12/23/15 at 1745, For 1 | | [...] AM PDT | | | | | [facility] 12/23/15 at 2345 | | | | [...]
--- OUTSIDE RECORDS SUMMARY | ~2019-02-03 | XMS | Encounter Summary ---
Demographics + + + | Address | [address] | | | [place] [address] | + + + | Home Phone | | + + + | Preferred Language | Unknown | + + + | Marital Status | | + + + | Methodist Affiliation | 1041 | + + + | Race | Unknown | + + + | Ethnic Group | Unknown | + + + Author + + + | Author | [facility] | | | and Samirana | + + + | Organization | [facility] | | [...] Team Providers + +------+ + | Care Cylinder Inspector Name | Role | Phone | + [...] Description | +--------+--------+ + + + | 01/05/ | Refill | [facility] | Scot Anton, | Medication Refill | | 2018 | | [facility] | [address] | | | | | [address] | [place] | | | | | [place] | [address] | | | | | [address] | | | | | | [phone] | | | +--------+--------+ + + + [...]
--- OUTSIDE RECORDS SUMMARY | ~2019-02-03 | XMS | Encounter Summary ---
Demographics + + + | Address | [address] | | | [place] [address] | + + + | Home Phone | | + + + | Preferred Language | Unknown | + + + | Marital Status | | + + + | Sikhism Affiliation | 1041 | + + + | Race | Unknown | + + + | Ethnic Group | Unknown | + + + Author + + + | Author | [facility] | | | and Samirana | + + + | Organization | [facility] | | | [...] Providers + +------+ + | Care Manufacturing Production Manager Name | Role | Phone | + +------+ + PCP | Unavailable | + +------+ + Encounter Details +--------+ + + + + | Date | Type | Department | Care Team | Description | +--------+ + + + + | 04/01/ | Hospital | [facility] | Telly Chacon, | | | 2008 | Encounter | [facility] | [address] | | | | | [address] | [place] | | | | | [place] | [id number] | | | | | [address] | | | | | | [phone] | | | +--------+ + + + [...]
--- OUTSIDE RECORDS SUMMARY | ~2019-02-03 | XMS | Encounter Summary ---
Demographics + + + | Address | [address] | | | [place] [address] | + + + | Home Phone | | + + + | Preferred Language | Unknown | + + + | Marital Status | | + + + | Church Affiliation | 1041 | + + + | Race | Unknown | + + + | Ethnic Group | Unknown | + + + Author + + + | Author | [facility] | | | and Samirana | + + + | Organization | [facility] | | [...] Team Providers + +------+ + | Care Paper Reclaiming Machine Operator Name | Role | Phone | + +------+ + | Scot Anton MD | PCP | | + +------+ + Reason for Visit +---------+ + | Reason | Comments | +---------+ + | Anxiety | follow up | +---------+ + Encounter Details +--------+---------+ + + + | Date | Type | Department | Care Team | Description | +--------+---------+ + + + | 06/28/ | Office | [facility] | Sloane Scot Flowers, | Depression with | | 2019 | Visit | [facility] | [address] | anxiety (Primary | | | | [address] | [place] | Dx); Grief reaction; | | | | [place] | [address] | COPD exacerbation | | | | [address] | | ([facility]); Essential | | | | [phone] | | hypertension; | | | | | | Tobacco abuse; | | | | | | Neoplasm, brain | | | | | | ([facility]) | +--------+---------+ + + + Social History [...] Given: Yes | | Comments: down to 3 cigs a [...] + + + | Blood Pressure | 124/82 | 06/28/2018 3:37 PM | | | | | PDT | | + + + + + | Pulse | 88 | 06/28/2018 3:37 PM | | | | | PDT | | + + + + + | Temperature | 36.4 C (97.5 F) | 06/28/2018 3:37 PM | | | | | PDT | | + + + + + | Respiratory Rate | 16 | 06/28/2018 3:37 PM | | | | | PDT | | + + + + + | Oxygen Saturation | 95% | 06/28/2018 3:37 PM | | | | | PDT | | + + + + + | Inhaled Oxygen | - | - | | | Concentration | | | | + + + + + | Weight | 67.5 kg (148 lb 13 | 06/28/2018 3:37 PM | | | | oz) | PDT | | + + + + + | Height | - | - | | + + + + + | Body Mass Index | 27.22 | 04/17/2018 11:43 AM | | | | | PST | | + + + + + documented in this encounter Patient Instructions Patient Instructions Scot Anton MD - 06/28/2018 3:30 PM PDTCall Latonia's to ederu le a mammogram. Start the prednisone as prescribed. Continue your medications as you are doing. If you do not hear from our office by end of June to schedule an MRI of your brain - kaylen norris let us know. Grief Reaction Grief is the feeling that we all have when we lose someone or something that has been impor tant in our life. Grief is an unavoidable and normal reaction to this loss, and can last fro m months to years. The amount of time depends on different factors. These include how close the person was to you, and how much support you have through the grief process. Symptoms can be both physical and emotional. Physical reactions Reactions to grief of a physical nature include: Loss of appetite or overeating Changes in weight Trouble getting to sleep or staying asleep Hair loss Upset stomach, indigestion, heart burn, belly pain, cramping, diarrhea Sense of trouble breathing Trembling, shakiness Emotional reactions Reactions to grief of an emotional nature include: Sadness Anxiety Feeling depressed or helpless Difficulty concentrating Detachment or withdrawal from those around you Loss of interest in your normal life and work Home care Suggestions to care for yourself at home include the following: Allow yourself to feel the pain of your loss. For some, this can be a arce part of healin g grief. Talk about your pain with others who understand. Share good memories that involve t he person, pet, or possession you lost. Take time for yourself. Make it a point to do things that you enjoy (gardening, walking in nature, going to a movie, etc.). Take care of your physical body. Eat a balanced diet (low in saturated fat and high in f ruits and vegetables) and establish an exercise plan at least 3 times a week for 30 minutes. Even mild-moderate exercise (like brisk walking) can make you feel better. Get plenty of sl eep. Don't use alcohol or drugs to cover your emotional pain. This only slows down the emotio nal healing process. Don't isolate yourself from others. Have daily contact with family or friends. Talk abou t your loss to those closest to you. For additional support, meet with your school bus driver/custodian, corporate treasury analyst, or rabbi, a counselor or therapis t, or your own healthcare provider. Consider joining a grief support group. Ask your healthcare provider or our staff for in formation on how to find one in your area. If you have been prescribed a medicine to help with your symptoms, take it only as direc stas. Do not use it with alcohol. Follow-up care Follow up with your healthcare provider, or as advised. Call [phone] if any of these happen: Trouble breathing Very confused Very drowsy or trouble awakening Fainting or loss of consciousness Rapid heart rate Seizure New chest pain that becomes more severe, lasts longer, or spreads into your shoulder, ar m, neck, jaw, or back Have suicidal thoughts, a suicide plan, and the means to carry out the plan; or serious thoughts of hurting someone else When to seek medical advice Call your healthcare provider right away if any of these happen: Worsening symptoms Unable to eat or sleep for three days in a row Feeling extreme depression, fear, anxiety, or anger toward yourself or others Feeling out of control Feeling that you may try to harm yourself Family or friends express concern over your behavior and ask you to get help Date Last Reviewed: 12/24/201619996159-0660 [employer]. [address] [place] [address]. All righ ts reserved. This information is not intended as a substitute for professional medical care. Always follow your healthcare professional's instructions. documented in this encounter Progress Notes Scot Anton MD - 06/28/2018 3:30 PM PDTFormatting of this note might be different fr om the original. Subjective: Patient ID: Pepper Hand is a 58 y.o. female who is here today for Anxiety (follow up ) HPI Her mom May 01 from a heart attack. She in Pepper's arms. This has been hard on her and her anxiety has flared as a result. She describes mood as "generally depres sed." Averages 4 hours of sleep per night. She feels overwhelmed at night which keeps her up. She is taking lexapro 20 mg daily. She is attending counseling with [facility]. No SI/H I. No guns in home. She did not tolerate buspirone, bupropion, trazodone and hydroxyzine. Citalopram, Zoloft, Effexorwere either ineffective or not tolerated Her allergies flared and her lungs feel a little tight and congested. She would like a pre dnisone prescription. She is using Spiriva daily, albuterol 3 times per week which does he lp. No fever, cough, significant SOB, hemoptysis. She would like to start pulmonary rehab. She is back up to 5 cigarettes per day. She has a fleshy growth on right upper arm for ~3 years. It is getting bigger and she woul d like it removed. It does not hurt. She is tolerating lovastatin well. She didn't tolerate atorvastatin due to muscle pains. She has opthalmology scheduled July 02. Continues to have fuzzy vision. Patient's medications, allergies, past medical, surgical, social and family histories were obtained and reviewed as appropriate. Review of Systems Objective: BP 124/82 | Pulse 88 | Temp 36.4 C (97.5 F) (Temporal) | Resp 16 | Wt 67.5 kg (148 lb 13 oz) | LMP (LMP Unknown) | SpO2 95% | BMI 27.22 kg/m Physical Exam Constitutional: Very pleasant, well developed, NAD HENT: +nasal discharge Cardiovascular: Normal rate, regular rhythm, normal heart sounds and intact distal pulses. Exam reveals no gallop and no friction rub. No murmur heard. Pulmonary/Chest: Breath sounds normal. No respiratory distress. She has no wheezes. She has no rales. Skin: Large soft fleshy marble sized pedunculated papule of right upper medial arm. No erythema, tenderness Psychiatric: Well groomed and dressed. Good eye contact. Thought organized and linear. Insight good. Full affect Assessment & Plan: 1. Depression with anxiety, grief reaction: She declines change in medication. She did n ot tolerate buspirone, bupropion, trazodone, hydroxyzine, citalopram, Zoloft, Effexorin th e past. Denies substance abuse - Continue counseling - Educated on warning signs - Sleep, diet, exercise - escitalopram (LEXAPRO) 20 mg tablet; Take 1 tablet by mouth Daily. To help mood and anxie ty Dispense: 30 tablet; Refill: 5 3. COPD exacerbation (HCC): Mild - Continue inhalers - predniSONE (DELTASONE) 10 mg tablet; Take 4 tablets by mouth for 3 days, then take 2 tabl ets by mouth for 3 days, then take 1 tablet by mouth for 3 days, then stop Dispense: 21 tab let; Refill: 0 4. Essential hypertension: Well controlled - atenolol (TENORMIN) 25 mg tablet; Take 1 tablet by mouth Daily. Dispense: 30 tablet; Ref ill: 5 5. Tobacco abuse - Advised to quit completely. 6. 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 No concerning systemic symptoms - MRI Brain w Contrast; Future in July Neoplasm Uncertain Behavior Skin: Appears to be a very large skin tag. Question lipoma in the mass - Return for biopsy. Will shave at base of stock. Return in about 6 weeks (around 08/09/2018), or if symptoms worsen or fail to improve. Joss Anton MD documented in this e ncounter Plan of Treatment Not on filedocumented as of this encounter Visit Diagnoses + + | Diagnosis | + + | Depression with anxiety - Primary Dysthymic disorder | + + | Grief reaction Adjustment disorder with depressed mood | + + | COPD exacerbation (HCC) Obstructive chronic bronchitis with exacerbation | + + | Essential hypertension Unspecified essential hypertension | + + | Tobacco abuse Tobacco use disorder | + + | Neoplasm, brain (HCC) Neoplasm of unspecified nature of brain | + + documented in this encounter
--- OUTSIDE RECORDS SUMMARY | ~2019-02-03 | XMS | Encounter Summary ---
Demographics + + + | Address | [address] | | | [place] [address] | + + + | Home Phone | | + + + | Preferred Language | Unknown | + + + | Marital Status | | + + + | Episcopal Affiliation | 1041 | + + + | Race | Unknown | + + + | Ethnic Group | Unknown | + + + Author + + + | Author | [facility] | | | and Samirana | + + + | Organization | [facility] | | | [...] Team Providers + +------+ + | Care Online Content Coordinator Name | Role | Phone | + +------+ + PCP | Unavailable | + +------+ + Reason for Visit + + + | Reason | Comments | + + + | Medication Refill | | + + + Encounter Details +--------+--------+ + + + | Date | Type | Department | Care Team | Description | +--------+--------+ + + + | 03/24/ | Refill | [facility] | Pepper Kamara | Medication Refill | | 2012 | | MEDICINE [place] | L, DIRECTOR DENTAL SERVICES [address] | | | | | [address] | [address] [place] | | | | | [place] | [address] | | | | | [address] | | | | | | [phone] | | | +--------+--------+ + + + [...]
--- OUTSIDE RECORDS SUMMARY | ~2019-02-03 | XMS | Encounter Summary ---
Demographics + + + | Address | [address] | | | [place] [address] | + + + | Home Phone | | + + + | Preferred Language | Unknown | + + + | Marital Status | | + + + | Zoroastrian Affiliation | 1041 | + + + [...] Team Providers + +------+ + | Care Rafter Cutting Machine Operator Name | Role | Phone | + +------+ + | Scot Anton MD | PCP | | + +------+ + Reason for Visit +---------+ + | Reason | Comments | +---------+ + | Anxiety | | +---------+ + Encounter Details +--------+ + + + + | Date | Type | Department | Care Team | Description | +--------+ + + + + | 11/19/ | Telephone | [facility] | Scot Anton, | Anxiety | | 2019 | | [facility]IC[facility] [place] | [address] | | | | | [address] | [place] | | | | | [place] | [address] | | | | | [address] | | | | | | [phone] | | | +--------+ + + + + Social History + + + +--------+ + | Tobacco Use | Types | Packs/Day | Years | Date | | | | | Used | | + + + +--------+ + | Former Smoker | Cigarettes | 0.25 | 30 | Quit: 09/27/2018 | + + + +--------+ + + [...]
--- OUTSIDE RECORDS SUMMARY | ~2019-02-03 | XMS | Encounter Summary ---
Demographics + + + | Address | [address] | | | [place] [address] | + + + | Home Phone [...] Team Providers + +------+ + | Care Application Helper Name | Role | Phone | + +------+ + | Scot Anton MD | PCP | | + +------+ + Reason for Visit + + + | Reason | Comments | + + + | Difficulty Breathing | | + + + Encounter Details +--------+ + + + + | Date | Type | Department | Care Team | Description | +--------+ + + + + | 11/08/ | Emergency | [facility] | Dez Sapp, | COPD with acute | | 2019 | | [facility] | MD [address] | exacerbation (HCC) | | | | CENTER [address] | [place] | (Primary Dx) | | | | [place] | [address] | | | | | [address] | | | | | | [phone] | | | +--------+ + + + [...] + + + | Blood Pressure | 144/73 | 11/08/2018 3:30 PM | | | | | PDT | | + + + + + | Pulse | 83 | 11/08/2018 4:57 PM | | | | | PDT | | + + + + + | Temperature | 35.8 C (96.5 F) | 11/08/2018 2:21 PM | | | | | PDT | | + + + + + | Respiratory Rate | 15 | 11/08/2018 4:57 PM | | | | | PDT | | + + + + + | Oxygen Saturation | 100% | 11/08/2018 4:57 PM | | | | | PDT | | + + + + + | Inhaled Oxygen | - | - | | | Concentration | | | | + + + + + | Weight | 69.9 kg (154 lb) | 11/08/2018 2:21 PM | | | | | PDT | | + + + + + | Height | 157.5 cm (5' 2") | 11/08/2018 2:21 PM | | | | | PDT | | + + + + + | Body Mass Index | 28.17 | 11/08/2018 2:21 PM | | | | | PDT | | + + + + + documented in this encounter Functional Status + + + [...] + + documented as of this encounter Discharge Instructions AttachmentsThe following attachments cannot be sent through Care Everywhere.Coping Tips for Caregivers, Chronic Lung Disease: (Amharic)documented in this encounter Medications at Time of [...] tablet by | 30 | 0 | 09/25/19 | | | (CLARITIN) 10 mg | mouth Daily. | tablet | | 19 | | | tablet | | | | | | + + + +---------+ + + | albuterol (PROAIR | Inhale 2 puffs into | 18 g | 5 | 11/01/19 | | | HFA) 90 mcg/puff | the lungs every 4 | | | 19 | 9 | | inhalerIndications: | hours as needed for | | | | | | Chronic obstructive | Wheezing or | | | | | | pulmonary disease, | Shortness of Breath. | | | | | | unspecified COPD | | | | | | | type (HCC) | | | | | | + + + +---------+ + + | atenolol | Take 1 tablet by | 90 | 1 | 11/01/19 | | | (TENORMIN) 25 mg | mouth Daily. | tablet | | 19 | 9 | | tabletIndications: | | | | | | | Essential | | | | | | | hypertension | | | | | | + + + +---------+ + + | azithromycin | Take 2 tablets by | 6 | 0 | 11/09/19 | | | (ZITHROMAX) 250 mg | mouth on day 1, and | tablet | | 19 | 9 | | tablet | 1 tablet by mouth | | | | | | | every day | | | | | + + + +---------+ + + | | Inhale 2 puffs into | 1 | 2 | 10/12/19 | | | budesonide-formotero | the lungs 2 times | Inhaler | | 19 | 9 | | l (SYMBICORT) | daily. Maintenance | | | | | | 160-4.5 mcg/puff | inhaler | | | | | | inhalerIndications: | | | | | | | Chronic obstructive | | | | | | | pulmonary disease, | | | | | | | unspecified COPD | | | | | | | type (HCC) | | | | | | + + + +---------+ + + | escitalopram | Take 1 tablet by | 90 | 1 | 11/01/19 | | | (LEXAPRO) 20 mg | mouth Daily. To help | tablet | | 19 | 9 | | tabletIndications: | mood and anxiety | | | | | | Depression with | | | | | | | anxiety | | | | | | + + + +---------+ + + | hydrOXYzine | Take 1-2 tablets by | 30 | 2 | 10/12/19 | | | hydrochloride | mouth every 8 hours | tablet | | 19 | 9 | | (ATARAX) 25 mg [...] Take 20 mg by mouth | | 1 | 08/25/19 | | | (PRILOSEC) 20 mg | Daily as needed for | | | 19 | 9 | | capsule | Heartburn. | | | | | + + + +---------+ + + | predniSONE | Take 2 tablets by | 20 | 0 | 11/09/19 | | | (DELTASONE) 20 mg | mouth 2 times daily | tablet | | 19 | 9 | | tablet | for 5 days. | | | | | + + + +---------+ + + | tiotropium | inhale contents of 1 | 90 | 1 | 11/01/19 | | | (SPIRIVA HANDIHALER) | capsule by mouth | capsule | | 19 | 9 | | 18 mcg inhalation | once daily | | | | | | capsuleIndications: | | | | | | | Chronic obstructive | | | | | | | pulmonary disease, | | | | | | | unspecified COPD | | | | | | | type (HCC) | | | | | | + [...] + + documented in this encounter Results XR Chest AP Portable (11/08/2018 2:52 PM [...] + +---------+ + + Basic Metabolic Panel (11/08/2018 2:45 [...] | | | | mmol/L | [facility] | | | | [...] 12 | 9 - 23 mg/dL | [facility] | | | | | | [facility] | | | | | | [facility] | | | | | | C[facility] - | | | | | | LABORATORY | | + + + + + + | Creatinine | 0.72 | 0.55 - 1.02 | [facility] | | | | | mg/dL | [facility] | | | | | | MEDICAL | | | | | | CENTER - | | | | | | LABORATORY | | + + + + + + | eGFR if not | >60Comment: GLOMERULAR | >=60 | [facility] | | | | FILTRATION | mL/min/1.73m2 | [facility] | | | [place] | RATE,ESTIMATED | | MEDICAL | | | | mL/min/1.13p8Aqns than | | CENTER - | | [...] | [address] | [place] | [phone] | | [facility] | | [address] | | | - LABORATORY | | | | + + + + + CBC with Differential (11/08/2018 2:45 [...] | | Basophils | | K/uL | [facility] | | | | | | MEDICAL | | | | | | CENTER - | | | | | | LABORATORY | | + + + + + + | Absolute | 0.03 | 0.00 - 0.03 | [facility] | | | Immature | | K/uL | [facility] | | | Granulocyte | | | MEDICAL | | | s | | | CENTER - | | | | | | LABORATORY | | + + + + + + | % nRBC | 0 | 0 - 2 per 100 | [facility] | | | | | WBCs | [facility] | | | | [...] | [address] | [place] | [phone] | | [facility] | | [address] | | | - LABORATORY | | | | + + + + + documented in this encounter Visit Diagnoses + + | Diagnosis | + + | COPD with acute exacerbation (HCC) - Primary Obstructive chronic bronchitis with | | exacerbation | + + documented in this encounter Administered Medications + +--------+ +-------+------+------+ | Medication Order | MAR | Action | Dose | Rate | Site | | | Action | Date | | | | + +--------+ +-------+------+------+ | albuterol-ipratropium 2.5-0.5 | Given | 11/09/19 | 3 mLs | | | | mg/3 mL nebulizer solution 3 mL | | 19 4:22 | | | | | 3 mL, Nebulization, RT Once, Fri | | PM PDT | | | | | 11/08/18 at 1435, For 1 dose | | | | | | + +--------+ +-------+------+------+ +---+---+ | | | +---+---+ + +-------+ +-------+---+---+ | methylPREDNISolone sodium | Given | 11/09/19 | 60 mg | | | | succinate (solu-MEDROL) 62.5 | | 19 2:37 | | | | | mg/mL injection 60 mg 60 mg, | | PM PDT | | | | | Intravenous, ONCE, 11/08/18 at | | | | | | | 1435, For 1 dose, Mix with 2 mL | | | | | | | provided diluent to make 62.5 | | | | | | | mg/mL., | | | | | | + +-------+ +-------+---+---+ +---+---+ | | | +---+---+ + +---------+ +--------+-------+---+ | sodium chloride 0.9% (NS) bolus | New Bag | 11/09/19 | 1,000 | 2000 | | | 1,000 mL 1,000 mL, Intravenous, | | 19 2:38 | mLs | mL/hr | | | Administer over 30 Minutes, | | PM PDT | | | | | ONCE, 11/08/18 at 1435, For 1 | | | | | | | dose | | | | | | + +---------+ +--------+-------+---+ +---+---+ | | | +---+---+ documented in this encounter
--- OUTSIDE RECORDS SUMMARY | ~2019-02-03 | XMS | Encounter Summary ---
Demographics + + + | Address | [address] | | | [place] [address] | + + + | Home Phone [...] Team Providers + +------+ + | Care Swift Tender Name | Role | Phone | + +------+ + | Scot Anton MD | PCP | | + +------+ + Reason for Referral Evaluate & Treat (Routine) +--------+ + + + + + | Status | Reason | Specialty | Diagnoses / | Referred By | Referred To | | | | | Procedures | Contact | Contact | +--------+ + + + + + | Closed | Specialty | Gastroenterol | Diagnoses | [facility] | | Services | ogy | Screen for | Scot Flowers MD | Gastroenterol | | | Required | | colon cancer | [address] | [address] | | | | | History of | [address] [place] | [address] | | | | | colon | [place] | [address] [place] | | | | | polyps | [address] | [place], [place] | | | | | | Phone: | [phone] | | | | | | [phone] | Phone: | | | | | | Fax: | [phone] | | | | | | [phone] | Fax: | | | | | | | [phone] | +--------+ + + + + + Reason for Visit + + + | Reason | Comments | + + + | Establish Care | | + + + | Diarrhea | | + + + | Abdominal Pain | | + + + | Depression | | + + + | Fatigue | | + + + Encounter Details +--------+---------+ + + + | Date | Type | Department | Care Team | Description | +--------+---------+ + + + | 01/23/ | Office | [facility] | Scot Anton, | Diverticulitis of | | 2017 | Visit | [facility] [place] | [address] | large intestine | | | | [address] | [place], [place] | without bleeding, | | | | [place], [place] | [phone] | unspecified | | | | [address] | | complication status | | | | [phone] | | (Primary Dx); | | | | | | Anxiety; Screen for | | | | | | colon cancer; | | | | | | History of colon | | | | | | polyps; Preventative | | | | | | health care; Need | | | | | | for hepatitis C | | | | | | screening test; | | | | | | Tobacco abuse | +--------+---------+ + + + Social History + +-------+ [...] + + + | Blood Pressure | 86/62 | 01/23/2017 10:35 AM | | | | | PDT | | + + + + + | Pulse | 69 | 01/23/2017 10:35 AM | | | | | PDT | | + + + + + | Temperature | 36.9 C (98.4 F) | 01/23/2017 10:35 AM | | | | | PDT | | + + + + + | Respiratory Rate | 20 | 01/23/2017 10:35 AM | | | | | PDT | | + + + + + | Oxygen Saturation | 96% | 01/23/2017 10:35 AM | | | | | PDT | | + + + + + | Inhaled Oxygen | - | - | | | Concentration | | | | + + + + + | Weight | 68.6 kg (151 lb 3.8 | 01/23/2017 10:35 AM | | | | oz) | PDT | | + + + + + | Height | 157.5 cm (5' 2.01") | 01/23/2017 10:35 AM | | | | | PDT | | + + + + + | Body Mass Index | 27.65 | 01/23/2017 10:35 AM | | | | | PDT | | + + + + + documented in this encounter Patient Instructions Patient Instructions Scot Anton MD - 01/23/2017 10:30 AM PDTHave labs today Take the ciprofloxacin and metronidazole as prescribed to treat the diverticulitis. If you do not hear from the gastroenterology office by Sunday - please call my office. Start the Effexor as prescribed. It takes 2-3 weeks of consistent use to help improve the mood and anxiety. If you feel manic or have thoughts of hurting yourself or others - call o office, 911, crisis line , or [phone], or go to the ER. Diverticulitis Some people get pouches along the wall of the colon as they get older. The pouches,called diverticuli, usually cause no symptoms. If the pouches become blocked, you can get an infec tion. This infection is called diverticulitis. It causes pain in your lower abdomen and feve r. If not treated, it can become a serious condition, causing an abscess to form inside the pouch. The abscess may block the intestinal tract even or rupture, spreading infection throu ghout the abdomen. When treatment is started early, oral antibiotics alone may be enough to cure diverticuliti s. This method is tried first. But, if you don't improve or if your condition gets worse whi louis using oral antibiotics, you may need to be admitted to the hospital for IV antibiotics. S evere cases may require surgery. Home care The following guidelines will help you care for yourself at home: During the acute illness, rest and follow your healthcareprovider's instructions about diet. Sometimes you will need to follow a clear liquid diet to rest your bowel. Once your s ymptoms are better, you may be told to follow a low-fiber diet for some time. Include foods like: Flake cereal, mashed potatoes, pancakes, waffles, pasta, white bread, rice, applesauce, bananas, eggs, fish, poultry, tofu, and cooked soft vegetables Take antibiotics exactly as instructed. Don't miss any doses or stop taking the medicati on, even if you feel better. Monitor your temperature and tell your healthcare provider if you have rising temperatur es. Preventing future attacks Once you have an episode of diverticulitis, you are at risk for having it again. After you have recovered from this episode, you may be able to lower your risk by eating a high-fiber diet (20 gm/day to 35 gm/day of fiber). This cleans out the colon pouches that already exist and may prevent new ones from forming. Foods high in fiber include fresh fruits and edible peelings, raw or lightly cooked vegetables, whole grain cereals and breads, dried beans and peas, and bran. Other steps that can help prevent future attacks include: Take your medicines, such as antibiotics, asyour healthcare provider says. Drink 6 to 8 glasses of water every day, unless told otherwise. Use a heating pad or hot water bottle to help abdominal cramping or pain. Begin an exercise program. Ask your healthcare provider how to get started. You can bene fit from simple activities such as walking or gardening. Treat diarrhea with a bland diet. Start with liquids only; then slowly add fiber over ti me. Watch for changes in your bowel movements (constipation to diarrhea). Avoid constipation by eating a high fiber diet and taking a stool softener if needed. Get plenty of rest and sleep. Follow-up care Follow up with your healthcare provider as advised or sooner if you are not getting better in the next 2days. When to seek medical advice Call your healthcare provider right away if any of these occur: Fever of 100.4F (38C) or higher, or as directed by your healthcare provider Repeated vomiting or swelling of the abdomen Weakness, dizziness, light-headedness Pain in your abdomen that gets worse, severe, or spreads to your back Pain that moves to the right lower abdomen Rectal bleeding (stools that are red, black or maroon color) Unexpected vaginal bleeding Date Last Reviewed: 11/25/201519992500-2017 [employer]. [address] [place] [address], [place] [address]. All righ ts reserved. This information is not intended as a substitute for professional medical care. Always follow your healthcare professional's instructions. documented in this encounter Progress Notes Scot Anton MD - 01/23/2017 10:30 AM PDTFormatting of this note might be different fr om the original. Subjective: Patient ID: Pepper Hand is a 56 y.o. female here for psychotic medications, [facility]. Accompanied by mother Jacquelyn. HPI She states "I'm not psychotic, I'm depressed and anxious." She frequently gets anxiety att acks - estimating ~3 per day. She states she ran out of depression medications ~8 months ag o. Most recently she took Lexapro and didn't find it very helpful. Celexa caused headaches . Didn't tolerate Zoloft, side effects not clear. She took Paxil years ago - her mom thoug ht it was very helpful. Lamictal is on allergy list - but she denies ever taking it. Never tried Prozac, Cymbalta, Effexor. She states she was diagnosed with bipolar in 1992 but it may have been changed to chronic depression. She was evaluated by Dr Pinedo at [facility] ago and diagnosed with PTSD, dysthymia. PTSD was related to her daughter's at 9 y ears of age. She states she was manic over 20 years ago, no episodes since. Described as e pisodes of giving things away with 20 minutes stretches of feeling really happy followed by 20 minutes of being really depressed. She has h/o paranoia, but denies this for years. She does have thoughts of but endorses safety. When asked what keeps her safe, she state s she is scared of guns. Her mother has guns that are locked away from Pepper. She has long history of intermittent diarrhea. Most recently she's had diarrhea for the pa st 3 weeks. Described as watery stool up to 7 times per day. Diarrhea is worse when she is stressed. Associated with left sided abdominal pain after eating. No fever, vomiting, sasha josé manuel, hematochezia. No travel, unusual foods, sick contacts, recent antibiotics. She had co lonoscopy in 09/11/2008: Three 2-4mm polyps in the recto-sigmoid colon, diverticulosis in th e sigmoid colon. Repeat 5 years. Patient's medications, allergies, past medical, surgical, social and family histories were obtained and reviewed as appropriate. Review of Systems Objective: BP (!) 86/62 | Pulse 69 | Temp 36.9 C (98.4 F) (Temporal) | Resp 20 | Ht 1.575 m (5 ' 2.01") | Wt 68.6 kg (151 lb 3.8 oz) | LMP (LMP Unknown) | SpO2 96% | BMI 27.65 kg/m Physical Exam Constitutional: She appears well-developed and well-nourished. No distress. Neck: Neck supple. No thyromegaly present. Cardiovascular: Normal rate, regular rhythm and normal heart sounds. Exam reveals no ludwig p and no friction rub. No murmur heard. Pulmonary/Chest: Effort normal. No respiratory distress. She has no wheezes. She has no ral es. Abdominal: Soft. She exhibits no distension and no mass (No obvious hernia on exam today). Tenderness: Mild left sided and RLQ tenderness without rebound or guarding. There is no rebo und and no guarding. Lymphadenopathy: She has no cervical adenopathy. Psychiatric: Disheveled appearance. Intermittent eye contact. Thought organized and linear. Restricte d affect. Insight fair to poor Assessment: Pepper was seen today for establish care, diarrhea, abdominal pain, depression and fatig ue. Diagnoses and all orders for this visit: Diverticulitis of large intestine without bleeding, unspecified complication status: Suspi cious for diverticulitis. Not severe - Educated on warning signs - ciprofloxacin (CIPRO) 500 mg tablet; Take 1 tablet by mouth 2 times daily for 10 days . - metroNIDAZOLE (FLAGYL) 500 MG tablet; Take 1 tablet by mouth 3 times daily for 10 day s. - Comprehensive Metabolic Panel; Future - CBC with Differential; Future Anxiety: Question bipolar. Denies substance abuse. Refuses mood stabilizers - just wanti ng something for anxiety. Given no obvious mike symptoms in past and no cycling in over 20 years - I'm ok with not adding mood stabilizer at this time. But educated on warning signs of mike, side effects of medications. Lexapro, citalopram, Zoloft were either ineffective or not tolerated. Paxil may have been helpful. - Encouraged mom to get guns out of house while Pepper is depressed. This caused Jerel west to leave the room as she was concerned [place]ha would confiscate her guns - which I tried to explain was not the case. Just want the guns out of home for her safety. She was not r ude or explosive and did agree to have labs and start medications. - TSH; Future - venlafaxine (EFFEXOR XR) 37.5 mg 24 hr capsule; Take 1 capsule by mouth Daily for 7 d ays. Then increase to 75 mg daily. To help anxiety and mood - venlafaxine (EFFEXOR XR) 75 mg 24 hr capsule; Take 37.5 mg pill by mouth daily x 7 da ys. Then increase to 75 mg daily. To help anxiety and mood Screen for colon cancer, h/o polyps: Due for colonoscopy - * [facility] Gastroenterology - AMB Referral Preventative health care - Comprehensive Metabolic Panel; Future - Lipid Panel; Future Need for hepatitis C screening test - Hepatitis C Ab; Future Tobacco abuse - Advised to quit Return in about 1 month (around 02/22/2017), or if symptoms worsen or fail to improve. Joss Anton MD Pretty Layne LP N - 01/23/2017 10:30 AM PDTPatient is here to establish care. She is concerned about the ab dominal pain and chronic diarrhea that she has especially after she eats. Complains of depression and fatigueElectronically signed by Pretty Duval LPN at 017 2:38 PM PDTdocumented in this encounter Plan of Treatment + + +--------+ + + | Name | Type | Priori | Associated Diagnoses | Order Schedule | | | | ty | | | + + +--------+ + + | * [facility] | Outpatient | Routin | Screen for colon | Ordered: 01/23/2017 | | Gastroenterology - | Referral | e | cancer History of | | | AMB Referral | | | colon polyps | | + + +--------+ + + documented as of this encounter Results Hepatitis C Ab (02/02/2017 12:40 PM PST) + + + + + + | Component | Value | Ref Range | Performed | Pathologist | | | | | At | Signature | + + + + + + | Hepatitis C | See CommentsComment: Non | NR | REFERENCE | | | Ab | ReactiveHepatitis C: | | [facility] | | | | Absence of antibody | | | | | | suggests no past | | | | | | Hepatitis C | | | | | | virusinfection. Since | | | | | | antibody development may | | | | | | be delayed up to 6 | | | | | | monthsafter infection, | | | | | | retesting may be | | | | | | indicated.Testing | | | | | | Performed: [facility], [address] | | | | | | [address], [place] | | | | | | [address] | | | | + + + + + + + + | Specimen | + + | Blood | + + + + + + + | Performing | Address | City/State/Zipcode | Phone Number | | Organization | | | | + + + + + | [facility] | [address] | [place] [address] | [phone] | + + + + + CBC with Differential (02/02/2017 12:40 PM PST) + + + + + + | Component | Value | Ref Range | Performed | Pathologist | | | | | At | Signature | + + + + + + | WBC | 14.7 (H) | 4.0 - 11.0 K/uL | [facility] | | | [facility] | | [facility] | [facility] | | | | | | [facility] - | | | | | | LABORATORY | | + + + + + + | RBC | 5.51 (H) | 3.70 - 5.20 | [facility] | | | | | M/uL | [facility] | | | | | | [facility] | | | | | | C[facility] - | | | | | | LABORATORY | | + + + + + + | Hemoglobin | 16.6 (H) | 11.5 - 16.0 | [facility] | | | | | g/dL | [facility] | | | | | | [facility] | | | | | | C[facility] - | | | | | | LABORATORY | | + + + + + + | Hematocrit | 48.3 (H) | 34.0 - 47.0 % | [facility] | | | | | | [facility] | | | | | | [facility] | | | | | | [facility] - | | | | | | LABORATORY | | + + + + + + | MCV | 87.7 | 83.0 - 101.0 fL | [facility] | | | | | [facility] | | | | | | [facility] | | | | | | C[facility] - | | | | | | LABORATORY | | + + + + + + | MCH | 30.2 | 28.0 - 35.0 pg | [facility] [...] + + + + | RDW-CV | 13.1 | <15.0 % | [facility] | | | | | [facility] | | | | | | [facility] | | | | | | CENTER - | | | | | | LABORATORY | | + + + + + + | Platelet | 345 | 140 - 440 K/uL | [facility] | | | Count | | | [facility] | | | | | | [facility] | | | | | | CENTER - | | | | | | LABORATORY | | + + + + + + | MPV | 8.4 | fL | [facility] | | | | | | [facility] | | | | | | [facility]ICAL | | | | | | CENTER - | | | | | | LABORATORY | | + + + + + + | % | 63.3 | 45.0 - 82.0 % | [facility] | | | Neutrophils | | | [facility] | | | | | | [facility] | | | | | | CENTER - | | | | | | LABORATORY | | + + + + + + | % | 26.7 | 20.0 - 45.0 % | [facility] | | | Lymphocytes | | | [facility] | | | | | | [facility] | | | | | | CENTER - | | | | | | LABORATORY | | + + + + + + | % Monocytes | 7.6 | 4.0 - 12.0 % | [facility] [...] + + + + | Absolute | 9.30 (H) | 1.80 - 8.50 | [facility] | | | Neutrophils | | K/uL | [facility] | | | | | | [facility] | | | | | | CENTER - | | | | | | LABORATORY | | + + + + + + | Absolute | 3.90 (H) | 0.60 - 3.20 | [facility] | | | Lymphocytes | | K/uL | [facility] | | | | | | [facility] | | | | | | CENTER - | | | | | | LABORATORY | | + + + + + + | Absolute | 1.10 (H) | 0.00 - 1.00 | [facility] [...] + | [facility] | [address] | [place] | [phone] | | [facility] | | [address] | | | - LABORATORY | | | | + + + + + Comprehensive Metabolic Panel (02/02/2017 12:40 PM PST) + + + + + + | Component | Value | Ref Range | Performed | Pathologist | | | | | At | Signature | + + + + + + | Na | 141 | 136 - 149 | [facility] | [...] + + + + | Creatinine | 0.90 | 0.60 - 1.30 | [facility] | | | | | mg/dL | [facility] | [facility] | [facility] | | | | | | C[facility] - | | | | | | LABORATORY | | + + + + + + | eGFR if not | >60Comment: GLOMERULAR | >=60 | [facility] | | | | FILTRATION | mL/min/1.73m2 | [facility] | | | KENYAN | RATE,ESTIMATED | | MEDICAL | | | | mL/min/1.76l3Tkaj than | | CENTER - | | [...] + + + + | Calcium | 9.6 | 8.3 - 10.5 | [facility] | | | | | mg/dL | [facility] | | | | | | [facility] | | | | | | CENTER - | | | | | | LABORATORY | | + + + + + + | Albumin | 4.1 | 3.2 - 5.0 g/dL | [facility] | | | | | | [facility] | | | | | | [facility]ICAL | | | | | | CENTER - | | | | | | LABORATORY | | + + + + + + | Bilirubin | 0.5 | 0.1 - 1.5 mg/dL | [facility] | | | Total | | | [facility] | | | | | | [facility] | | | | | | CENTER - | | | | | | LABORATORY | | + + + + + + | Total | 6.8 | 6.0 - 7.8 g/dL | [facility] | | | Protein | | | [facility] | | | | | | MEDICAL | | | | | | CENTER - | | | | | | LABORATORY | | + + + + + + | AST | 15 | 10 - 42 U/L | [facility] | | | | | | [facility] | | | | | | [facility]ICAL | | | | | | CENTER - | | | | | | LABORATORY | | + + + + + + | ALT | 13 | 6 - 45 U/L | [facility] | | | | | | [facility] | | | | | | [facility]ICAL | | | | | | CENTER - | | | | | | LABORATORY | | + + + + + + | Alkaline | 69 | 40 - 110 U/L | [facility] [...] + + + + | Albumin/Colleen | 1.5 | 0.8 - 2.0 | [facility] | | | bulin Ratio | | | [facility] | | | | | | MEDICAL | | | | | | CENTER - | | | | | | LABORATORY | | + + + + + + | BUN/Creatin | 8.9 | | [facility] | | | ine [...] + | [facility] | [address] | [place] | [phone] | | [facility] | | [address] | | | - LABORATORY | | | | + + + + + TSH (02/02/2017 12:40 PM PST) + + + + + + | Component | Value | Ref Range | Performed | Pathologist | | | | | At | Signature | + + + + + + | TSH | 0.47Comment: All TSH | 0.34 - 5.60 | [facility] | | | | samples are screened | uIU/mL | [facility] | | | | using a 2nd Generation | | MEDICAL | | | | test, and are reflexed | | CENTER - | | | | to a 3rd Generation test | | LABORATORY | | | | if indicated. | | | | + + + + + + + + | Specimen | + + | Blood | + + + + + + + | Performing | Address | City/State/Zipcode | Phone Number | | Organization | | | | + + + + + | [facility] | [address] | [place], [place] | [phone] | | [facility] | | [address] | | | - LABORATORY | | | | + + + + + documented in this encounter Visit Diagnoses + + | Diagnosis | + + | Diverticulitis of large intestine without bleeding, unspecified complication status - | | Primary | + + | Anxiety Anxiety state, unspecified | + + | Screen for colon cancer Special screening for malignant neoplasms, colon | + + | History of colon polyps Personal history of colonic polyps | + + | Preventative health care Routine general medical examination at a [facility] | | facility | + + | Need for hepatitis C screening test Special screening examination for other specified | | viral diseases | + + | Tobacco abuse Tobacco use disorder | + + documented in this encounter
--- OUTSIDE RECORDS SUMMARY | ~2019-02-03 | XMS | Encounter Summary ---
Demographics + + + | Address | [address] | | | [place] [address] | + + + | Home Phone | | + + + | Preferred Language | Unknown | + + + | Marital Status | | + + + | Worship Affiliation | [phone] | + + + [...] Team Providers + +------+ + | Care Outsewer Name | Role | Phone | + +------+ + | Pepper Kamara | PCP | | + +------+ + Encounter Details +--------+ + + + + | Date | Type | Department | Care Team | Description | +--------+ + + + + | 09/01/ | Hospital | [facility] | Blaine Leavitt | | | 2010 | Encounter | [facility] | MD Janes, FACS [address] | | | | | [address] | [place] | | | | | [place] | [place] [address] | | | | | [address] | [phone] | | | | | [phone] | | | +--------+ + + + [...] | CBC NO DIFFERENTIAL | Routin | 09/01/2010 | | Results for this | | | e | 11:28 AM | | procedure are in the | | | | PDT | | results section. | + +--------+ + + + | BASIC METABOLIC | Routin | 09/01/2010 | | Results for this | | PANEL | e | 11:28 AM | | procedure are in the | | | | PDT | | results section. | + +--------+ + + + documented in this encounter Results CBC no Differential (09/01/2010 11:28 AM PDT) + +-------+ + + + | Component | Value | Ref Range | Performed | Pathologist | | | | | At | Signature | + +-------+ + + + | WBC | 8.2 | 4.0 - 11.0 K/uL | [facility] | | | | | [facility] | | | | | | [facility] | | | | | | C[facility] - | | | | | | LABORATORY | | + +-------+ + + + | RBC | 4.86 | 3.70 - 5.20 | [facility] | | | | | M/uL | [facility] | | | | | | MEDICAL | | | | | | CENTER - | | | | | | LABORATORY | | + +-------+ + + + | Hemoglobin | 14.8 | 11.5 - 16.0 | [facility] | | | | | gm/dL | [facility] | | | | | | MEDICAL | | | | | | CENTER - | | | | | | LABORATORY | | + +-------+ + + + | Hematocrit | 44.8 | 34.0 - 47.0 % | [facility] | | | | | | [facility] | | | | | | [facility] | | | | | | CENTER - | | | | | | LABORATORY | | + +-------+ + + + | MCV | 92.3 | 83.0 - 101.0 fL | [facility] | | | | | | [facility] | | | | | | [facility]ICAL | | | | | | CENTER - | | | | | | LABORATORY | | + +-------+ + + + | MCH | 30.5 | 28.0 - 35.0 pg | [facility] | | | | | | [facility] | | | | | | MEDICAL | | | | | | CENTER - | | | | | | LABORATORY | | + +-------+ + + + | MCHC | 33.0 | 32.0 - 36.0 | [facility] | | | | | g/dL | [facility] | | | | | | MEDICAL | | | | | | CENTER - | | | | | | LABORATORY | | + +-------+ + + + | RDW-CV | 13.3 | <15.0 % | [facility] | | | | | | [facility] | | | | | | MEDICAL | | | | | | CENTER - | | | | | | LABORATORY | | + +-------+ + + + | Platelet | 280 | 140 - 440 K/uL | [facility] | [address] | [place] | [phone] | | [facility] | | [address] | | | - LABORATORY | | | | + + + + + | [facility] | [address] | [place] | | | [facility] | | [address] | | | - LABORATORY | | | | + + + + + Basic Metabolic Panel (09/01/2010 11:28 AM PDT) + + + + + + | Component | Value | Ref Range | Performed | Pathologist | | | | | At | Signature | + + + + + + | Glucose | 96 | 70 - 109 mg/dL | [facility] | | | | | | [facility] [...] + + + + | Estimated | 54 (L)Comment: For | >60 mL/min/A | [facility] | | | GFR | -Americans, | | . [facility] | | | | please multiply the | | MEDICAL | | | | result by 1.210 | | CENTER - | | | | This is an estimated | | LABORATORY | | | | GFR and is based on | | | | | | a standard body | | | | | | mass and serum | | | | | | creatinine | | | | + + + + + + | BUN/Creatin | 11.1 (L) | 12 - 20 | [facility] [...] Cl | 108 | 98 - 109 mEq/l | [facility] | | | | | | [facility] | | | | | | MEDICAL | | | | | | CENTER - | | | | | | LABORATORY | | + + + + + + | CO2 | 23 (L) | 24 - 31 mEq/L | [facility] | | | | | | [facility] | | [facility] | | | [facility]ICAL | | | | | | CENTER - | | | | | | LABORATORY | | + + + + + + | Anion Gap | 11.9 | 6.0 - 17.0 | [facility] | [...] + + | [facility] | [address] | [place] | [phone] | | [facility] | | [address] | | | - LABORATORY | | | | + + + + + | [facility] | [address] | [place], [place] | | | [facility] | | [address] | | | - LABORATORY | | | | + + + + + documented in this encounter Visit Diagnoses Not on filedocumented in this encounter"
--- OUTSIDE RECORDS SUMMARY | ~2019-02-03 | XMS | Encounter Summary ---
Demographics + + + | Address | [address] | | | [place] [address] | + + + | Home Phone | | + + + | Preferred Language | Unknown | + + + | Marital Status | | + + + | Mandaeism Affiliation | 1041 | + + + | Race | Unknown | + + + | Ethnic Group | Unknown | + + + Author + + + | Author | [facility] | | | and [place] | + + + | Organization | [facility] | | [...] Team Providers + +------+ + | Care Commercial Food Instructor Name | Role | Phone | + +------+ + | Scot Anton MD | PCP | | + +------+ + Encounter Details +--------+ + + + + | Date | Type | Department | Care Team | Description | +--------+ + + + + | 03/16/ | Anesthesia | [facility] | Remington Cedeño, | | | 2017 | Event | MED CTR MP INTRA OP | DO [address] | | | | | [address] | [place] | | | | | [place] | [address] | | | | | [address] | | | | | | [phone] | | | +--------+ + + + + Anesthesia Record + + + + + | Procedure Name | Responsible | Anesthesia Start | Anesthesia Stop Time | | | Anesthesiologist | Time | | + + + + + | EGD (N/A Mouth) | | | | + + + + + + + | No events on file. | + + +------+ | Meds | +------+ + + + No medications | on file. | + + + + + | No agents on file. | + + + + | No blood administrations on file. | + + + + | No LDAs on file. | + + documented in this encounter Social History + + + +--------+------+ | [...]
--- OUTSIDE RECORDS SUMMARY | ~2019-02-03 | XMS | Encounter Summary ---
Demographics + + + | Address | [address] | | | [place] [address] | + + + | Home Phone | | + + + | Preferred Language | Unknown | + + + | Marital Status | | + + + | Buddhism Affiliation | 1041 | + + + | Race | Unknown | + + + | Ethnic Group | Unknown | + + + Author + + + | Author | [facility] | | | and [place] | + + + | Organization | [facility] | | | [...] Team Providers + +------+ + | Care Ecd Name | Role | Phone | + +------+ + | Scot Anton MD | PCP | | + +------+ + Reason for Visit + + + | Reason | Comments | + + + | Missed Visit | Cxl appt 04/24/2018 | + + + Encounter Details +--------+ + + + + | Date | Type | Department | Care Team | Description | +--------+ + + + + | 04/23/ | Telephone | [facility] | Garrick Ko | Missed Visit (Cxl | | 2019 | | [facility] CTR [facility] | D, PT [address] | appt 04/24/2018) | | | | [address] [place] | [address] [place], [place] | | | | | [place] [address] | [address] | | | | | [phone] | | | +--------+ + + + [...]
--- OUTSIDE RECORDS SUMMARY | ~2019-02-03 | XMS | Encounter Summary ---
Demographics + + + | Address | [address] | | | [place] [address] | + + + | Home Phone | | + + + | Preferred Language | Unknown | + + + | Marital Status | | + + + | Jew Affiliation | 1041 | + + + | Race | Unknown | + + + | Ethnic Group | Unknown | + + + Author + + + | Author | [facility] | | | and [place] | + + + | Organization | [facility] | | | [...] Team Providers + +------+ + | Care Printed Circuit Board Pcb Designer Name | Role | Phone | + +------+ + | Pepper Kamara | PCP | | + +------+ + Encounter Details +--------+ + + + + | Date | Type | Department | Care Team | Description | +--------+ + + + + | 01/07/ | Orders Only | [facility] | Pepper Kamara | Unspecified vitamin | | 2011 | | [facility] [place] | NAVNEET Guerrero [address] | D deficiency | | | | [address] | [address] [place] | (Primary Dx) | | | | [place] | [address] | | | | | [address] | | | | | | [phone] | | | +--------+ + + + [...]
--- OUTSIDE RECORDS SUMMARY | ~2019-02-03 | XMS | Encounter Summary ---
Demographics + + + | Address | [address] | | | [place] [address] | + + + | Home Phone [...] Team Providers + +------+ + | Care Magician Helper Name | Role | Phone | + +------+ + | Scot Anton MD | PCP | | + +------+ + Reason for Visit +--------+ + | Reason | Comments | +--------+ + | Other | | +--------+ + Encounter Details +--------+ + + + + | Date | Type | Department | Care Team | Description | +--------+ + + + + | 05/03/ | Telephone | [facility] | Scot Anton, | Other | | 2019 | | [facility] [place] | MD [address] | | | | | [address] | [place] | | | | | [place] | [address] | | | | | [address] | | | | | | [phone] | | | +--------+ + + + [...] obstructive pulmonary disease, unspecified COPD type (HCC) - Primary | + + documented in this encounter"
--- OUTSIDE RECORDS SUMMARY | ~2019-02-03 | XMS | Encounter Summary ---
Demographics + + + | Address | [address] | | | [place] [address] | + + + | Home Phone | | + + + | Preferred Language | Unknown | + + + | Marital Status | | + + + | Latter Day Affiliation | 1041 | + + + [...] Team Providers + +------+ + | Care Cleaner And Dyer Name | Role | Phone | + +------+ + PCP | Unavailable | + +------+ + Encounter Details +--------+ + + + + | Date | Type | Department | Care Team | Description | +--------+ + + + + | 04/01/ | Hospital | [facility] | Telly Chacon, | | | 2008 | Encounter | MED CTR LABORATORY | [address] | | | | | [address] [place] | [place] | | | | | [place] | [address] | | | | | [address] | | | | | | [phone] | | | +--------+ + + + [...]
--- OUTSIDE RECORDS SUMMARY | ~2019-02-03 | XMS | Encounter Summary ---
Demographics + + + | Address | [address] | | | [place] [address] | + + + | Home Phone | | + + + | Preferred Language | Unknown | + + + | Marital Status | | + + + | Amish Affiliation | 1041 | + + + | Race | Unknown | + + + | Ethnic Group | Unknown | + + + Author + + + | Author | [facility] | | | and [place] | + + + | Organization | [facility] | | [...] Team Providers + +------+ + | Care Bee Tender Name | Role | Phone | + +------+ + | Scot Anton MD | PCP | | + +------+ + Reason for Visit + + + | Reason | Comments | + + + | Coordination Of Care | | + + + Encounter Details +--------+ + + + + | Date | Type | Department | Care Team | Description | +--------+ + + + + | 04/18/ | Telephone | [facility] [place] [facility] | Scot Anton, | Coordination Of Care | | 2019 | | [facility]IC[facility] [place] | [address] | | | | | [address] | [place] | | | | | [place] | [address] | | | | | [address] | | | | | | [phone] | | | +--------+ + + + [...]
--- OUTSIDE RECORDS SUMMARY | ~2019-02-03 | XMS | Encounter Summary ---
Demographics + + + | Address | [address] | | | [place] [address] | + + + | Home Phone | | + + + | Preferred Language | Unknown | + + + | Marital Status | | + + + | Presybeterian Affiliation | 1041 | + + + | Race | Unknown | + + + | Ethnic Group | Unknown | + + + Author + + + | Author | [facility] | | | and [place] | + + + | Organization | [facility] | | | [...] Team Providers + +------+ + | Care Snow Maker Name | Role | Phone | + [...] | | | | [place] | [address] | | | | | [address] | | | | | | [phone] | | | +--------+--------+ + + + [...]
--- OUTSIDE RECORDS SUMMARY | ~2019-02-03 | XMS | Encounter Summary ---
Demographics + + + | Address | [address] | | | [place] [address] | + + + | Home Phone | | + + + | Preferred Language | Unknown | + + + | Marital Status | | + + + | Yazidi Affiliation | 1041 | + + + | Race | Unknown | + + + | Ethnic Group | Unknown | + + + Author + + + | Author | [facility] | | | and [place] | + + + | Organization | [facility] | | [...] Team Providers + +------+ + | Care Visor Installer Name | Role | Phone | + +------+ + | Scot Anton MD | PCP | | + +------+ + Encounter Details +--------+ + + + + | Date | Type | Department | Care Team | Description | +--------+ + + + + | 04/26/ | Home Care | [facility] | Nisa Leyva, | CASE COMMUNICATION | | 2019 | Visit | [place] [address] | RN | | | | | [place] | | | | | | [address] | | | | | | [phone] | | | +--------+ + + + [...]
--- OUTSIDE RECORDS SUMMARY | ~2019-02-03 | XMS | Encounter Summary ---
Demographics + + + | Address | [address] | | | [place] [address] | + + + | Home Phone | | + + + | Preferred Language | Unknown | + + + | Marital Status | | + + + | Christian Affiliation | 1041 | + + + | Race | Unknown | + + + | Ethnic Group | Unknown | + + + Author + + + | Author | [facility] | | | and [place] | + + + | Organization | [facility] | | | [...] Team Providers + +------+ + | Care Siene Maker Name | Role | Phone | [...] Description | +--------+--------+ + + + | 10/12/ | Refill | [facility] [place] [facility] | Scot Anton, | Medication Refill | | 2018 | | [facility] | [address] | | | | | [address] | [place] | | | | | [place] | [address] | | | | | [address] | | | | | | [phone] | | | +--------+--------+ + + + [...]
--- OUTSIDE RECORDS SUMMARY | ~2019-02-03 | XMS | Encounter Summary ---
Demographics + + + | Address | [address] | | | [place] [address] | + + + | Home Phone | | + + + | Preferred Language | Unknown | + + + | Marital Status | | + + + | Anglican Affiliation | 1041 | + + + | Race | Unknown | + + + | Ethnic Group | Unknown | + + + Author + + + | Author | [facility] | | | and [place] | + + + | Organization | [facility] | | | [...] Team Providers + +------+ + | Care Systems Architect Name | Role | Phone | + +------+ + PCP | Unavailable | + +------+ + Encounter Details +--------+ + + + + | Date | Type | Department | Care Team | Description | +--------+ + + + + | 01/15/ | Hospital | [facility] | Elio Chambers | | | 2008 - | Encounter | MED CTR EMERGENCY | MD [address] | | | | | [place] [address] | [place] [facility] | | | 01/16/ | | [place] | [place] [address] | | | 2008 | | [address] | [phone] | | | | | [phone] | | | +--------+ + + + [...]
--- OUTSIDE RECORDS SUMMARY | ~2019-02-03 | XMS | Encounter Summary ---
Demographics + + + | Address | [address] | | | [place] [address] | + + + | Home Phone | | + + + | Preferred Language | Unknown | + + + | Marital Status | | + + + | Sikh Affiliation | 1041 | + + + | Race | Unknown | + + + | Ethnic Group | Unknown | + + + Author + + + | Author | [facility] | | | and [place] | + + + | Organization | [facility] | | | [...] Team Providers + +------+ + | Care Cell Room Supervisor Name | Role | Phone | [...] Description | +--------+--------+ + + + | 09/15/ | Refill | [facility] [place] [facility] | Scot Anton, | Medication Refill | | 2018 | | [facility] | [address] | | | | | [address] | [place] | | | | | [place] | [address] | | | | | [address] | | | | | | [phone] | | | +--------+--------+ + + + [...]
--- OUTSIDE RECORDS SUMMARY | ~2019-02-03 | XMS | Encounter Summary ---
Demographics + + + | Address | [address] | | | [place] [address] | + + + | Home Phone | | + + + | Preferred Language | Unknown | + + + | Marital Status | | + + + | Cheondoism Affiliation | 1041 | + + + | Race | Unknown | + + + | Ethnic Group | Unknown | + + + Author + + + | Author | [facility] | | | and [place] | + + + | Organization | [facility] | [...] Team Providers + +------+ + | Care Airport Duty Manager Name | Role | Phone | + +------+ + | Scot Anton MD | PCP | | + +------+ + Encounter Details +--------+ + + + + | Date | Type | Department | Care Team | Description | +--------+ + + + + | 02/19/ | Episode | [facility] [place] | Deysi Abrams | | | 2016 | Changes | GASTROENTEROLOGY | [address] Damon | | | | | [address] | | | | | | [address] [place] | | | | | | [address] | | | | | | [phone] | | | +--------+ + + + [...]
--- OUTSIDE RECORDS SUMMARY | ~2019-02-03 | XMS | Encounter Summary ---
Demographics + + + | Address | [address] | | | [place] [address] | + + + | Home Phone | | + + + | Preferred Language | Unknown | + + + | Marital Status | | + + + | Sabianism Affiliation | 1041 | + + + | Race | Unknown | + + + | Ethnic Group | Unknown | + + + Author + + + | Author | [facility] | | | and [place] | + + + | Organization | [facility] | | | [...] Team Providers + +------+ + | Care Sock Lining Examiner Name | Role | Phone | + +------+ + | Scot Anton MD | PCP | | + +------+ + Reason for Visit + + + | Reason | Comments | + + + | Appointment | | + + + Encounter Details +--------+ + + + + | Date | Type | Department | Care Team | Description | +--------+ + + + + | 02/19/ | Telephone | [facility] | Dick Medina MD | Appointment | | 2017 | | GASTROENTEROLOGY | [address], [place] | | | | | [address] [place] | [address] [place], [place] | | | | | [address] [place], [place] | [address] | | | | | [address] | | | | | | [phone] | | | +--------+ + + + [...] + | Diagnosis | + + | Dill's esophagus determined by biopsy - Primary | + + documented in this encounter"
--- OUTSIDE RECORDS SUMMARY | ~2019-02-03 | XMS | Encounter Summary ---
Demographics + + + | Address | [address] | | | [place] [address] | + + + | Home Phone | | + + + | Preferred Language | Unknown | + + + | Marital Status | | + + + | Anabaptist Affiliation | 1041 | + + + | Race | Unknown | + + + | Ethnic Group | Unknown | + + + Author + + + | Author | [facility] | | | and [place] | + + + | Organization | [facility] | | [...] Team Providers + +------+ + | Care Assistant News Director Name | Role | Phone | + +------+ + | Scot Anton MD | PCP | | + +------+ + Encounter Details +--------+ + + + + | Date | Type | Department | Care Team | Description | +--------+ + + + + | 02/23/ | Episode | [facility] [place] | Dasha Lee, | | | 2016 | Changes | GASTROENTEROLOGY | Program Supervisor | | | | | [address] | | | | | | [address] [place] | | | | | | [address] | | | | | | [phone] | | | +--------+ + + + [...]
--- OUTSIDE RECORDS SUMMARY | ~2019-02-03 | XMS | Encounter Summary ---
Demographics + + + | Address | [address] | | | [place] [address] | + + + | Home Phone | | + + + | Preferred Language | Unknown | + + + | Marital Status | | + + + | Adventism Affiliation | 1041 | + + + | Race | Unknown | + + + | Ethnic Group | Unknown | + + + Author + + + | Author | [facility] | | | and [place] | + + + | Organization | [facility] | | | and [...] Team Providers + +------+ + | Care Television Specialist Name | Role | Phone | + +------+ + PCP | Unavailable | + +------+ + Encounter Details +--------+ + + + + | Date | Type | Department | Care Team | Description | +--------+ + + + + | 09/11/ | Hospital | [facility] | | | | 2008 | Encounter | MED CTR GENERIC OP | | | | | | CONV DEPT [address] | | | | | | [place], | | | | | | [place] [address] | | | | | | [phone] | | | +--------+ + + + [...]
--- OUTSIDE RECORDS SUMMARY | ~2019-02-03 | XMS | Encounter Summary ---
Demographics + + + | Address | [address] | | | [place] [address] | + + + | Home Phone [...] Team Providers + +------+ + | Care Senior Process Control Tech Name | Role | Phone | + [...] Description | +--------+--------+ + + + | 08/14/ | Refill | [facility] [place] [facility] | Scot Anton, | Medication Refill | | 2018 | | [facility] | [address] | | | | | [address] | [place] | | | | | [place] | [address] | | | | | [address] | | | | | | [phone] | | | +--------+--------+ + + + [...]
--- OUTSIDE RECORDS SUMMARY | ~2019-02-03 | XMS | Encounter Summary ---
Demographics + + + | Address | [address] | | | [place] [address] | + + + | Home Phone | | + + + | Preferred Language | Unknown | + + + | Marital Status | | + + + | Shinto Affiliation | 1041 | + + + | Race | Unknown | + + + | Ethnic Group | Unknown | + + + Author + + + | Author | [facility] | | | and [place] | + + + | Organization | [facility] | | | and [...] Team Providers + +------+ + | Care [place] Program Technician Name | Role | Phone | + +------+ + | Scot Anton MD | PCP | | + +------+ + Reason for Visit +--------+ + | Reason | Comments | +--------+ + | COPD | | +--------+ + Encounter Details +--------+ + + + + | Date | Type | Department | Care Team | Description | +--------+ + + + + | 04/16/ | Telephone | [facility] | Scot Anton, | COPD | | 2019 | | [facility] [place] | MD [address] | | | | | [address] | [place] | | | | | [place] | [address] | | | | | [address] | | | | | | [phone] | | | +--------+ + + + [...] chronic bronchitis with exacerbation | + + documented in this encounter"
--- OUTSIDE RECORDS SUMMARY | ~2019-02-03 | XMS | Encounter Summary ---
Demographics + + + | Address | [address] | | | [place] [address] | + + + | Home Phone [...] + + + | Author | [facility] | | | and [place] | + + + | Organization | [facility] | | | [...] Team Providers + +------+ + | Care Citrus Fruit Colorer Name | Role | Phone | + +------+ + | Scot Anton MD | PCP | | + +------+ + Encounter Details +--------+ + + + + | Date | Type | Department | Care Team | Description | +--------+ + + + + | 04/23/ | Home Care | [facility] | Nisa Leyva, | CASE COMMUNICATION | | 2019 | Visit | [place] [address] | RN | | | | | [place] | | | | | | [address] | | | | | | [phone] | | | +--------+ + + + [...]
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
--- OUTSIDE RECORDS SUMMARY | ~2019-02-03 | XMS | Encounter Summary ---
Demographics + + + | Address | [address] | | | [place] [address] | + + + | Home Phone | | + + + | Preferred Language | Unknown | + + + | Marital Status | | + + + | Cheondoism Affiliation | 1041 | + + + | Race | Unknown | + + + | Ethnic Group | Unknown | + + + Author + + + | Author | [facility] | | | and [place] | + + + | Organization | [facility] | | [...] Team Providers + +------+ + | Care Case Aide Name | Role | Phone | + [...] Description | +--------+--------+ + + + | 06/17/ | Refill | [facility] | Scot Anton, | Medication Refill | | 2019 | | [facility] [place] | [address] | | | | | [address] | [place] | | | | | [place] | [address] | | | | | [address] | | | | | | [phone] | | | +--------+--------+ + + + [...]
--- OUTSIDE RECORDS SUMMARY | ~2019-02-03 | XMS | Encounter Summary ---
Demographics + + + | Address | [address] | | | [place] [address] | + + + | Home Phone | | + + + | Preferred Language | Unknown | + + + | Marital Status | | + + + | Anglican Affiliation | 1041 | + + + | Race | Unknown | + + + | Ethnic Group | Unknown | + + + Author + + + | Author | [facility] | | | and [place] | + + + | Organization | [facility] | | | [...] Team Providers + +------+ + | Care Lap Welder Name | Role | Phone | + +------+ + PCP | Unavailable | + +------+ + Encounter Details +--------+ + + + + | Date | Type | Department | Care Team | Description | +--------+ + + + + | 05/21/ | Hospital | [facility] | Carmen Marquez | | | 2007 | Encounter | MED CTR EMERGENCY | Marisol Brand MD [address] | | | | | [place] [address] | [facility] | | | | | [place] | [place] [address] | | | | | [address] | [phone] | | | | | [phone] | | | +--------+ + + + [...]
--- OUTSIDE RECORDS SUMMARY | ~2019-02-03 | XMS | Encounter Summary ---
Demographics + + + | Address | [address] | | | [place] [address] | + + + | Home Phone | | + + + | Preferred Language | Unknown | + + + | Marital Status | | + + + | Uatsdin Affiliation | 1041 | + + + | Race | Unknown | + + + | Ethnic Group | Unknown | + + + Author + + + | Author | [facility] | | | and [place] | + + + | Organization | [facility] | | | and [...] Team Providers + +------+ + | Care Subway Guard Name | Role | Phone | + [...] 2017 | | GASTROENTEROLOGY | [address], [place] | | | | | [address] [place] | [address] [place], [place] | | | | | [address] [place], [place] | [address] | | | | | [address] | | | | | | [phone] | | | +--------+ + + + [...]
--- OUTSIDE RECORDS SUMMARY | ~2019-02-03 | XMS | Encounter Summary ---
Demographics + + + | Address | [address] | | | [place] [address] | + + + | Home Phone [...] Providers + +------+ + | Care Airport Skilled Maintenance Supervisor Name | Role | Phone [...] | | 2018 | Outreach | [facility] | [address] | Screening, Breast | | | | [address] | [place] | Cancer Screening | | | | [place] | [address] | | | | | [address] | | | | | | [phone] | | | +--------+ + + + [...]
--- OUTSIDE RECORDS SUMMARY | ~2019-02-03 | XMS | Encounter Summary ---
Demographics + + + | Address | [address] | | | [place] [address] | + + + | Home Phone [...] + + | Author | [facility] | | | and [place] | + + + | Organization | [facility] | | [...] Team Providers + +------+ + | Care Black Belt Name | Role | Phone | + +------+ + | Scot Anton MD | PCP | | + +------+ + Encounter Details +--------+ + + + + | Date | Type | Department | Care Team | Description | +--------+ + + + + | 02/27/ | Episode | [facility] [place] | Dasha Lee, | | | 2016 | Changes | GASTROENTEROLOGY | Control Systems Specialist | | | | | [address] | | | | | | [address] [place] | | | | | | [address] | | | | | | [phone] | | | +--------+ + + + [...] +---+---+---+ + + | Comments: Previously tried Chanstarr, patch | + + + + +---------+ [...]
--- OUTSIDE RECORDS SUMMARY | ~2019-02-03 | XMS | Encounter Summary ---
Demographics + + + | Address | [address] | | | [place] [address] | + + + | Home Phone | | + + + | Preferred Language | Unknown | + + + | Marital Status | | + + + | Protestant Affiliation | 1041 | + + + [...] Team Providers + +------+ + | Care Inspector Mechanical Name | Role | Phone | + [...] Refill | | 2018 | | [facility] | [address] | | | | | [address] | [place] | | | | | [place] | [address] | | | | | [address] | | | | | | [phone] | | | +--------+--------+ + + + [...]
--- OUTSIDE RECORDS SUMMARY | ~2019-02-03 | XMS | Encounter Summary ---
Demographics + + + | Address | [address] | | | [place] [address] | + + + | Home Phone | | + + + | Preferred Language | Unknown | + + + | Marital Status | | + + + | Adventism Affiliation | 1041 | + + + | Race | Unknown | + + + | Ethnic Group | Unknown | + + + Author + + + | Author | [facility] | | | and [place] | + + + | Organization | [facility] | | | [...] Providers + +------+ + | Care Water Supply Engineer Name | Role | Phone | + +------+ + PCP | Unavailable | + +------+ + Encounter Details +--------+ + + + + | Date | Type | Department | Care Team | Description | +--------+ + + + + | 10/12/ | Hospital | [facility] | Pepper Kamara | | | 2008 | Encounter | MED CTR GENERIC OP | L, END TRIMMER [address] | | | | | CONV DEPT [address] | [place] | | | | | [place], | [address] | | | | | [place] [address] | | | | | | [phone] | | | +--------+ + + + [...]
--- OUTSIDE RECORDS SUMMARY | ~2019-02-03 | XMS | Encounter Summary ---
Demographics + + + | Address | [address] | | | [place] [address] | + + + | Home Phone | | + + + | Preferred Language | Unknown | + + + | Marital Status | | + + + | Judaism Affiliation | 1041 | + + + [...] Team Providers + +------+ + | Care Button Tacker Name | Role | Phone | + [...] Description | +--------+--------+ + + + | 04/27/ | Refill | [facility] | Scot Anton, | Medication Refill | | 2019 | | [facility] [place] | [address] | | | | | [address] | [place] | | | | | [place] | [address] | | | | | [address] | | | | | | [phone] | | | +--------+--------+ + + + [...]
--- OUTSIDE RECORDS SUMMARY | ~2019-02-03 | XMS | Encounter Summary ---
Demographics + + + | Address | [address] | | | [place] [address] | + + + | Home Phone | | + + + | Preferred Language | Unknown | + + + | Marital Status | | + + + | Mu-Ism Affiliation | 1041 | + + + | Race | Unknown | + + + | Ethnic Group | Unknown | + + + Author + + + | Author | [facility] | | | and [place] | + + + | Organization | [facility] | | | [...] Team Providers + +------+ + | Care Recordist Name | Role | Phone | + +------+ + | Scot Anton MD | PCP | | + +------+ + Reason for Visit + + + | Reason | Comments | + + + | ER Follow-up | | + + + Encounter Details +--------+ + + + + | Date | Type | Department | Care Team | Description | +--------+ + + + + | 01/21/ | Telephone | [facility] | Scot Anton, | ER Follow-up | | 2018 | | [facility] [place] | [address] | | | | | [address] | [place] | | | | | [place] | [address] | | | | | [address] | | | | | | [phone] | | | +--------+ + + + [...]
--- OUTSIDE RECORDS SUMMARY | ~2019-02-03 | XMS | Encounter Summary ---
Demographics + + + | Address | [address] | | | [place] [address] | + + + | Home Phone | | + + + | Preferred Language | Unknown | + + + | Marital Status | | + + + | Islam Affiliation | 1041 | + + + | Race | Unknown | + + + | Ethnic Group | Unknown | + + + Author + + + | Author | [facility] | | | and [place] | + + + | Organization | [facility] | | | [...] Team Providers + +------+ + | Care Bottle Washing Machine Operator Name | Role | Phone [...] | +--------+ + + + + | 07/02/ | Telephone | [facility] | Scot Anton, | [facility] | | 2019 | | [facility]IC[facility] [place] | [address] | | | | | [address] | [place] | | | | | [place] | [address] | | | | | [address] | | | | | | [phone] | | | +--------+ + + + [...]
--- OUTSIDE RECORDS SUMMARY | ~2019-02-03 | XMS | Encounter Summary ---
Demographics + + + | Address | [address] | | | [place] [address] | + + + | Home Phone | | + + + | Preferred Language | Unknown | + + + | Marital Status | | + + + | Mandaeism Affiliation | 1041 | + + + | Race | Unknown | + + + | Ethnic Group | Unknown | + + + Author + + + | Author | [facility] | | | and aSmirana | + + + | Organization | [facility] | | [...] Providers + +------+ + | Care Senior Environmental Practice Leader Name | Role | Phone | + +------+ + | Pepper Kamara | PCP | | + +------+ + Encounter Details +--------+ + + + + | Date | Type | Department | Care Team | Description | +--------+ + + + + | 07/07/ | Hospital | [facility] | Simin Costello | | | 2010 | Encounter | MED CTR LABORATORY | MD [address] | | | | | [address] [place] | [address] | | | | | [place] | [place], [place] [address] | | | | | [address] | [phone] | | | | | [phone] | | | +--------+ + + + [...]
--- OUTSIDE RECORDS SUMMARY | ~2019-02-03 | XMS | Encounter Summary ---
Demographics + + + | Address | [address] | | | [place] [address] | + + + | Home Phone | | + + + | Preferred Language | Unknown | + + + | Marital Status | | + + + | Voodoo Affiliation | 1041 | + + + [...] Phone | + + +---------+ + | Jsoe Simpson | ECON | Unknown | | + + +---------+ + Care Team Providers + +------+ + | Care Irish Moss Gatherer Name | Role | Phone | + [...] | | | | [place] | [address] | | | | | [address] | | | | | | [phone] | | | +--------+--------+ + + + [...]
--- OUTSIDE RECORDS SUMMARY | ~2019-02-03 | XMS | Encounter Summary ---
Demographics + + + | Address | [address] | | | [place] [address] | + + + | Home Phone | | + + + | Preferred Language | Unknown | + + + | Marital Status | | + + + | Nondenominational Affiliation | 1041 | + + + [...] Team Providers + +------+ + | Care Road Train Driver Name | Role | Phone | + +------+ + | Scot Anton MD | PCP | | + +------+ + Encounter Details +--------+ + + + + | Date | Type | Department | Care Team | Description | +--------+ + + + + | 04/24/ | Home Care | [facility] | Nisa Leyva, | CASE COMMUNICATION | | 2019 | Visit | [place] [address] | RN | | | | | [place] | | | | | | [address] | | | | | | [phone] | | | +--------+ + + + [...]
--- OUTSIDE RECORDS SUMMARY | ~2019-02-03 | XMS | Encounter Summary ---
Demographics + + + | Address | [address] | | | [place] [address] | + + + | Home Phone | | + + + | Preferred Language | Unknown | + + + | Marital Status | | + + + | Scientology Affiliation | 1041 | + + + [...] Team Providers + +------+ + | Care Dogger Name | Role | Phone | + [...] Description | +--------+--------+ + + + | 12/21/ | Refill | [facility] [place] [facility] | Pepper Kamara | Medication Refill | | 2011 | | [facility] [place] | NAVNE[address] Guerrero [address] | | | | | [address] | [place] | | | | | [place] | [address] | | | | | [address] | | | | | | [phone] | | | +--------+--------+ + + + [...]
--- OUTSIDE RECORDS SUMMARY | ~2019-02-03 | XMS | Encounter Summary ---
Demographics + + + | Address | [address] | | | [place] [address] | + + + | Home Phone | | + + + | Preferred Language | Unknown | + + + | Marital Status | | + + + | Latter-Day Affiliation | 1041 | + + + | Race | Unknown | + + + | Ethnic Group | Unknown | + + + Author + + + | Author | [facility] | | | and [place] | + + + | Organization | [facility] | | [...] Providers + +------+ + | Care Manufacturing Technology Analyst Name | Role | Phone | + +------+ + | Pepper Kamara | PCP | | + +------+ + Reason for Visit +--------+ + | Reason | Comments | +--------+ + | Other | | +--------+ + Encounter Details +--------+ + + + + | Date | Type | Department | Care Team | Description | +--------+ + + + + | 03/29/ | Telephone | [facility] | Pepper Kamara | Other | | 2012 | | [facility] | [place] [address] | | | | | [address] | [address] [place] | | | | | [place] | [address] | | | | | [address] | | | | | | [phone] | | | +--------+ + + + [...]
--- OUTSIDE RECORDS SUMMARY | ~2019-02-03 | XMS | Encounter Summary ---
Demographics + + + | Address | [address] | | | [place] [address] | + + + | Home Phone [...] Team Providers + +------+ + | Care Section Gang Worker Name | Role | Phone | + +------+ + PCP | Unavailable | + +------+ + Encounter Details +--------+ + + + + | Date | Type | Department | Care Team | Description | +--------+ + + + + | 06/22/ | [facility] | [facility] | Sean Calero | | | 2005 | Encounter | MED CTR EMERGENCY | MD Dequ[address] | | | | | [place] [address] | [facility] | | | | | [place] | [place] [address] | | | | | [address] | [phone] | | | | | [phone] | | | +--------+ + + + [...]
--- OUTSIDE RECORDS SUMMARY | ~2019-02-03 | XMS | Encounter Summary ---
Demographics + + + | Address | [address] | | | [place] [address] | + + + | Home Phone | | + + + | Preferred Language | Unknown | + + + | Marital Status | | + + + | Sabianist Affiliation | 1041 | + + + | Race | Unknown | + + + | Ethnic Group | Unknown | + + + Author + + + | Author | [facility] | | | and [place] | + + + | Organization | [facility] | | | [...] Team Providers + +------+ + | Care Clearing House Clerk Name | Role | Phone | + +------+ + | Scot Anton MD | PCP | | + +------+ + Reason for Visit + + + | Reason | Comments | + + + | Medication Prior | Rosuvastatin 5 mg | | Authorization | | + + + Encounter Details +--------+ + + + + | Date | Type | Department | Care Team | Description | +--------+ + + + + | 05/28/ | Telephone | [facility] | Scot Anton, | Medication Prior | | 2019 | | [facility] [place] | [address] | Authorization | | | | [address] | [place] | (Rosuvastatin 5 mg) | | | | [place] | [address] | | | | | [address] | | | | | | [phone] | | | +--------+ + + + [...] + + | Hyperlipidemia, unspecified hyperlipidemia type - Primary | + + documented in this encounter"
--- OUTSIDE RECORDS SUMMARY | ~2019-02-03 | XMS | Encounter Summary ---
Demographics + + + | Address | [address] | | | [place] [address] | + + + | Home Phone | | + + + | Preferred Language | Unknown | + + + | Marital Status | | + + + | Gnosticist Affiliation | 1041 | + + + | Race | Unknown | + + + | Ethnic Group | Unknown | + + + Author + + + | Author | [facility] | | | and [place] | + + + | Organization | [facility] | | [...] Team Providers + +------+ + | Care Metal Handler Name | Role | Phone | + [...] | | | | [place] | [address] | | | | | [address] | | | | | | [phone] | | | +--------+--------+ + + + [...]
--- OUTSIDE RECORDS SUMMARY | ~2019-02-03 | XMS | Encounter Summary ---
Demographics + + + | Address | [address] | | | [place] [address] | + + + | Home Phone | | + + + | Preferred Language | Unknown | + + + | Marital Status | | + + + | Adventist Affiliation | 1041 | + + + | Race | Unknown | + + + | Ethnic Group | Unknown | + + + Author + + + | Author | [facility] | | | and [place] | + + + | Organization | [facility] | | [...] Team Providers + +------+ + | Care Legal Billing Coordinator Name | Role | Phone | [...] Refill | [facility] | Pepper Kamara | Medication Refill | | 2011 | | [facility] [place] | [place], [place] [address] | | | | | [address] | [address] [place] | | | | | [place] | [address] | | | | | [address] | | | | | | [phone] | | | +--------+--------+ + + + [...]
--- OUTSIDE RECORDS SUMMARY | ~2019-02-03 | XMS | Encounter Summary ---
Demographics + + + | Address | [address] | | | [place] [address] | + + + | Home Phone | | + + + | Preferred Language | Unknown | + + + | Marital Status | | + + + | Confucianist Affiliation | 1041 | + + + [...] Team Providers + +------+ + | Care Contract Administration Coordinator Name | Role | Phone | [...] Refill | | 2018 | | [facility] | [address] | | | | | [address] | [place] | | | | | [place] | [address] | | | | | [address] | | | | | | [phone] | | | +--------+--------+ + + + [...]
--- OUTSIDE RECORDS SUMMARY | ~2019-02-03 | XMS | Encounter Summary ---
Demographics + + + | Address | [address] | | | [place] [address] | + + + | Home Phone | | + + + | Preferred Language | Unknown | + + + | Marital Status | | + + + | Zoroastrianism Affiliation | 1041 | + + + [...] Team Providers + +------+ + | Care Sports Information Director Name | Role | Phone | + +------+ + | Pepper Kamara | PCP | | + +------+ + Encounter Details +--------+ + + + + | Date | Type | Department | Care Team | Description | +--------+ + + + + | 07/07/ | Hospital | [facility] | Simin Costello | | | 2010 | Encounter | [facility] | MD [place] [address] | | | | | [address] [place] | [address] [place] | | | | | [place] | [place], [place] [address] | | | | | [address] | [phone] | | | | | [phone] | | | +--------+ + + + [...]
--- OUTSIDE RECORDS SUMMARY | ~2019-02-03 | XMS | Encounter Summary ---
Demographics + + + | Address | [address] | | | [place] [address] | + + + | Home Phone | | + + + | Preferred Language | Unknown | + + + | Marital Status | | + + + | Anglican Affiliation | 1041 | + + + | Race | Unknown | + + + | Ethnic Group | Unknown | + + + Author + + + | Author | [facility] | | | and [place] | + + + | Organization | [facility] | | | [...] Team Providers + +------+ + | Care Hospice Consultant Name | Role | Phone | + +------+ + | No, Physician | PCP | Unavailable | + +------+ + Reason for Visit + + + | Reason | Comments | + + + | Shortness of Breath | | + + + | Cough | | + + + Encounter Details +--------+ + + + + | Date | Type | Department | Care Team | Description | +--------+ + + + + | // | Emergency | [facility] | Nuno Cabrera, | COPD exacerbation | | 2017 | | [facility] | MD [address] | ([facility]) (Primary Dx) | | | | CENTER [address] | [facility] [place] | | | | | [place], [place] | [place] [address] | | | | | [address] | [phone] | | | | | [phone] | | | +--------+ + + + [...] + + + | Blood Pressure | 112/87 | 10/28/2016 9:09 PM | | | | | PDT | | + + + + + | Pulse | 91 | 10/28/2016 9:18 PM | | | | | PDT | | + + + + + | Temperature | 36.7 C (98.1 F) | 10/28/2016 9:12 PM | | | | | PDT | | + + + + + | Respiratory Rate | 30 | 10/28/2016 9:18 PM | | | | | PDT | | + + + + + | Oxygen Saturation | 96% | 10/28/2016 9:18 PM | | | | | PDT | | + + + + + | Inhaled Oxygen | - | - | | | Concentration | | | | + + + + + | Weight | 72.1 kg (159 lb) | 10/28/2016 9:12 PM | | | | | PDT | | + + + + + | Height | 157.5 cm (5' 2") | 10/28/2016 9:12 PM | | | | | PDT | | + + + + + | Body Mass Index | 29.08 | 10/28/2016 9:12 PM | | | | | PDT | | + + + + + documented in this encounter Discharge Instructions Instructions Nuno Cabrera MD - 10/28/2016Stop smoking Prednisone for 5 days Albuterol nebulizer every 3 hours Stay out of the poor quality air outside Return immediately if symptoms worsen or other concerns develop Establish a primary care provider AttachmentsThe following attachments cannot be sent through Care Everywhere.COPD Flare (Geovanna paris)documented in this encounter Medications at Time of Discharge + + + +---------+ + + | Medication | Sig | Dispensed | Refills | Start | End Date | | | | | | Date | | + + + +---------+ + + | albuterol 2.5 mg/3 | Take 3 mLs by | 360 | 0 | 10/29/19 | | | mL nebulizer | nebulization every 3 | vial | | 17 | 9 | | solution | hours as needed for | | | | | | | Wheezing or | | | | | | | Shortness of Breath. | | | | | + + [...] +---------+ + + | predniSONE | Take 6 tablets by | 30 | 0 | 10/29/19 | | | (DELTASONE) 10 mg | mouth Daily for 5 | tablet | | 17 | 7 | | tablet | days. | | | | | + [...] | | | + +--------+ +-------+------+------+ | albuterol 5 mg/mL concentrated | Given | 10/28/ | 10 mg | | | | nebulizer solution 10 mg 10 mg, | | 17 10:01 | | | | | Nebulization, RT Once, 10/28/16 | | PM PDT | | | | | at 2200, For 1 dose | | | | | | + +--------+ +-------+------+------+ +---+---+ | | | +---+---+ + +-------+ +-------+---+---+ | albuterol-ipratropium (DUONEB) | Given | 10/29/19 | 3 mLs | | | | 2.5-0.5 mg/3 mL nebulizer | | 17 9:16 | | | | | solution 3 mL 3 mL, | | PM PDT | | | | | Nebulization, RT Once, 10/28/16 | | | | | | | at 2115, For 1 dose | | | | | | + +-------+ +-------+---+---+ +---+---+ | | | +---+---+ + +-------+ +-------+---+---+ | predniSONE (DELTASONE) tablet | Given | 10/29/19 | 60 mg | | | | 60 mg 60 mg, Oral, ONCE, Sat | | 17 10:28 | | | | | 8 at 2200, For 1 dose | | PM PDT | | | | + +-------+ +-------+---+---+ +---+---+ | | | +---+---+ documented in this encounter
--- OUTSIDE RECORDS SUMMARY | ~2019-02-03 | XMS | Encounter Summary ---
Demographics + + + | Address | [address] | | | [place] [address] | + + + | Home Phone | | + + + | Preferred Language | Unknown | + + + | Marital Status | | + + + | Lutheran Affiliation | 1041 | + + + | Race | Unknown | + + + | Ethnic Group | Unknown | + + + Author + + + | Author | [facility] | | | and [place] | + + + | Organization | [facility] | | [...] Providers + +------+ + | Care Senior Sharepoint Developer Name | Role | Phone | + +------+ + | Scot Anton MD | PCP | | + +------+ + Reason for Visit + + + | Reason | Comments | + + + | Anxiety | increase anxiety. can't seem to turn her brain off. Doesn't feel | | | that the medication is helping | + + + | Depression | | + + + | ED Follow-up | went to hospital last night, was almost admitted. states that | | | while at hosp, it a guard | + + + Encounter Details +--------+---------+ + + + | Date | Type | Department | Care Team | Description | +--------+---------+ + + + | 11/22/ | Office | [facility] | Scot Anton, | Bipolar 1 disorder, | | 2019 | Visit | [facility] [place] | [address] | mixed (HCC) (Primary | | | | [address] | [place] | Dx) | | | | [place] | [address] | | | | | [address] | | | | | | [phone] | | | +--------+---------+ + + + Social History [...] + + + | Blood Pressure | 144/94 | 11/22/2018 10:50 AM | | | | | PDT | | + + + + + | Pulse | 66 | 11/22/2018 10:50 AM | | | | | PDT | | + + + + + | Temperature | 36.5 C (97.7 F) | 11/22/2018 10:50 AM | | | | | PDT | | + + + + + | Respiratory Rate | 16 | 11/22/2018 10:50 AM | | | | | PDT | | + + + + + | Oxygen Saturation | 97% | 11/22/2018 10:50 AM | | | | | PDT | | + + + + + | Inhaled Oxygen | - | - | | | Concentration | | | | + + + + + | Weight | 66.3 kg (146 lb 2.6 | 11/22/2018 10:50 AM | | | | oz) | PDT | | + + + + + | Height | - | - | | + + + + + | Body Mass Index | 26.73 | 11/08/2018 2:21 PM | | | [...] + + documented as of this encounter Patient Instructions Patient Instructions Scot Anton MD - 11/22/2018 11:00 AM PDT Start depakote 250 mg daily for 3 days. Then increase to 500 mg once per day. Please stop by the lab for blood work before your appointment in 2 weeks. Ideally you want your blood checked shortly before your dose of Depakote is due. Lab Hours: Sunday-Sunday 7 am to 5:30 pm [place] [address] [place] [facility] [address] [facility] Saturdays & Sundays 8 am to noon [facility] (you do not have to see a doctor, just tell them you are there for l abs) If you feel manic or have thoughts of hurting yourself or others - call our office, 911, cr alec line , or [phone], or go to the ER. Or you can text the crisis line at: 851724 Or chat online at: [email or web address]/gethelp/lifelinechat.[email or web address] x documented in this encounter Progress Notes Scot Anton MD - 11/22/2018 11:00 AM PDTFormatting of this note might be different fr om the original. Subjective: Patient ID: Pepper Hand is a 58 y.o. female who is here today for Anxiety (i ncrease anxiety. can't seem to turn her brain off. Doesn't feel that the medication is helpi ng); Depression; and ED Follow-up (went to hospital last night, was almost admitted. states that while at hosp, it a guard) HPI She was evaluated at [facility] 2 weeks ago for depression after telling her daughter she didn't feel like living. She is seeing a counselor through [employer] every 2 weeks. She me ets with a psychiatrist 12/19/18. Describes mood as "wound up like the inside of a golf ball. Rubberbands everywhere." Can h ave periods of "extreme irritability where I just want to hit somebody." Appetite is sporad ic - one moment high, the next low. Sleep is sporadic. States she went 3 days without sleep ing because she was so restless. Then slept for almost 48 hours. She still thinks of dying every morning. She states she's had a plan since she is 16 yo. She refuses to share her p pascale. But she states she "want to live." Her grandson keeps her from self-harm. "Everything" has been stressful. She has a court date 11/27 regarding her eviction notice (s he continues to live there and is fighting the eviction). She is looking for other housing. She is taking Lexapro 20 mg daily. She takes hydroxyzine a couple times per day when anxie ty flares but causes her to feel too sleepy. She doesn't like it. She wonders if Valium or Ativan are an option for her. She did not tolerate buspirone or bupropion or trazodone. Buspirone made her feel more anx ious. Bupropion caused palpitations. Citalopram, Zoloft, Effexorwere either ineffectiv e or not tolerated. Paxil may have been helpful. Abilify lowered her blood pressure and m aris her feel faint. Haldol caused muscle cramps. She did take depakote years ago and did f ind helpful. No shopping sprees, sexual indiscretions. No drug (including marijuana) or alcohol use. No guns in home. Patient's medications, allergies, past medical, surgical, social and family histories were obtained and reviewed as appropriate. Review of Systems Objective: BP (!) 144/94 | Pulse 66 | Temp 36.5 C (97.7 F) (Temporal) | Resp 16 | Wt 66.3 kg ( 146 lb 2.6 oz) | LMP (LMP Unknown) | SpO2 97% | BMI 26.73 kg/m Physical Exam Constitutional: Very pleasant, well developed, NAD Neck: Neck supple. No thyromegaly present. Cardiovascular: Normal rate, regular rhythm, normal heart sounds and intact distal pulses. Exam reveals no gallop and no friction rub. No murmur heard. Pulmonary/Chest: Breath sounds normal. No respiratory distress. She has no wheezes. She has no rales. Musculoskeletal: She exhibits no edema. Lymphadenopathy: She has no cervical adenopathy. Psychiatric: Well groomed and dressed. Good eye contact. Thought organized and linear. Full affect. Speech is not pressured. Insight fair. Assessment & Plan: 1. Bipolar 1 disorder, mixed (HCC): Agree that symptoms appear c/w h/o mike. Also with P TSD. Still with suicidal ideation, but endorses safety. She previously tried at least: hyd roxyzine, buspirone, bupropion, trazodone, citalopram, Zoloft, Effexor, Abilify, Haldol. De nies substance abuse. - OK to resume divalproex (DEPAKOTE ER) 500 mg 24 hr tablet; Take 1 tablet by mouth Daily. To stabilize mood. Start once 250 mg pills completed Dispense: 30 tablet; Refill: 0 - divalproex (DEPAKOTE ER) 250 mg 24 hr tablet; Take 1 tablet by mouth Daily for 3 days. Th en increase to 500 mg once per day. To stabilize mood Dispense: 3 tablet; Refill: 0 Educat ed on side effects - Continue Lexapro - Recommend against BZD's - Continue with Lifeways as planned - Valproic Acid Level; Future - Comprehensive Metabolic Panel; Future - CBC no Differential; Future Return in about 2 weeks (around 12/06/2018), or if symptoms worsen or fail to improve. 27 minutes spent face to face, over 50% spent on counseling and education Joss Anton MD documented in this e ncounter Plan of Treatment + +------+--------+ + + | Name | Type | Priori | Associated Diagnoses | Order Schedule | | | | ty | | | + +------+--------+ + + | Comprehensive | Lab | Routin | Bipolar 1 | Expected: 11/29/2018 | | Metabolic Panel | | e | disorder, mixed | (Approximate), | | | | | (HCC) | Expires: 11/22/2019 | + +------+--------+ + + | CBC no Differential | Lab | Routin | Bipolar 1 | Expected: 11/29/2018 | | | | e | disorder, mixed | (Approximate), | | | | | (HCC) | Expires: 11/23/2019 | + +------+--------+ + + documented as of this encounter Visit Diagnoses + + | Diagnosis | + + | Bipolar 1 disorder, mixed (HCC) - Primary Bipolar I disorder, most recent episode (or | | current) mixed, unspecified | + + documented in this encounter
--- OUTSIDE RECORDS SUMMARY | ~2019-02-03 | XMS | Encounter Summary ---
Demographics + + + | Address | [address] | | | [place] [address] | + + + | Home Phone | | + + + | Preferred Language | Unknown | + + + | Marital Status | | + + + | Latter Day Affiliation | 1041 | + + + | Race | Unknown | + + + | Ethnic Group | Unknown | + + + Author + + + | Author | [facility] | | | and [place] | + + + | Organization | [facility] | | [...] Team Providers + +------+ + | Care Whipped Topping Mixer Name | Role | Phone | + +------+ + | Scot Anton MD | PCP | | + +------+ + Reason for Visit + + + | Reason | Comments | + + + | Incontinence | | | Supplies | | + + + Encounter Details +--------+ + + + + | Date | Type | Department | Care Team | Description | +--------+ + + + + | 07/06/ | Telephone | [facility] [place] [facility] | [place]ane Scot Flowers, | Incontinence | | 2018 | | MEDIC[facility] [place] | [address] | Supplies | | | | [address] | [place] | | | | | [place] | [address] | | | | | [address] | | | | | | [phone] | | | +--------+ + + + [...]
--- OUTSIDE RECORDS SUMMARY | ~2019-02-03 | XMS | Encounter Summary ---
Demographics + + + | Address | [address] | | | [place] [address] | + + + | Home Phone | | + + + | Preferred Language | Unknown | + + + | Marital Status | | + + + | Mandaeism Affiliation | 1041 | + + + | Race | Unknown | + + + | Ethnic Group | Unknown | + + + Author + + + | Author | [facility] | | | and Samirana | + + + | Organization | [facility] | | | and [...] Providers + +------+ + | Care Sales Attendant Name | Role | Phone | + +------+ + | Scot Anton MD | PCP | | + +------+ + Reason for Visit + + + | Reason | Comments | + + + | Skin Lesion | right inner, upper arm | + + + Encounter Details +--------+---------+ + + + | Date | Type | Department | Care Team | Description | +--------+---------+ + + + | 09/06/ | Office | [facility] | Scot Anton Lionel, | Cellulitis of right | | 2019 | Visit | [facility] [place] | [address] | upper extremity | | | | [address] | [place] | (Primary Dx); | | | | [place], [place] | [address] | Ventral hernia | | | | [address] | | without obstruction | | | | [phone] | | or gangrene | +--------+---------+ + + + Social History [...] + + + | Blood Pressure | 114/70 | 09/06/2018 10:58 AM | | | | | PDT | | + + + + + | Pulse | 63 | 09/06/2018 10:58 AM | | | | | PDT | | + + + + + | Temperature | 36.4 C (97.5 F) | 09/06/2018 10:58 AM | | | | | PDT | | + + + + + | Respiratory Rate | 18 | 09/06/2018 10:58 AM | | | | | PDT | | + + + + + | Oxygen Saturation | 93% | 09/06/2018 10:58 AM | | | | | PDT | | + + + + + | Inhaled Oxygen | - | - | | | Concentration | | | | + + + + + | Weight | 68.9 kg (151 lb 14.4 | 09/06/2018 10:58 AM | | | | oz) | PDT | | + + + + + | Height | - | - | | + + + + + | Body Mass Index | 27.78 | 04/17/2018 11:43 AM | | | | | PST | | + + + + + documented in this encounter Patient Instructions Patient Instructions Scot Anton MD - 09/06/2018 11:00 AM PDT Apply mupirocin ointment three times daily for the next 5 days. If the redness gets more t cordero a finger breadth around the biopsy site - then please start the cephalexin (pill antibio tic). If you do not hear from our office by the end of the day to schedule the ultrasound of your abdomen - please let us know. When to seek medical advice Call your healthcare provider right away if any of these occur: Red areas that spread Swelling or pain that gets worse Fluid leaking from the skin (pus) Fever higher of 100.4 F (38.0 C) or higher after 2 days on antibiotics Hernia (Adult) A hernia can happen when there is a weakness or defect in the wall of the abdomen or groin. Intestines or nearby tissues may move from their usual location and push through the weakn ess in the wall. This can cause a hernia (bulge) you may see or feel. Causes and risk factors A hernia may be present at . Or it may be caused by the wear and tear of daily living. Certain factors can make a hernia more likely. These can include: Heavy lifting Straining, whether from lifting, movement, or constipation Chronic cough Injury to the abdominal wall Excess weight Prior surgery Older age Family history of hernia Symptoms Symptoms of a hernia may come on suddenly. Or they may appear slowly over time. Some common symptoms include: Bulge in the groin area, around the navel, or in the scrotum (the bulge may get bigger w hen you stand and go away when you lie down) Pain or pressure around the bulge Pain during activities such as lifting, coughing, or sneezing A feeling of weakness or pressure in the groin Pain or swelling in the scrotum Types of hernias There are different types of hernia. The type you have depends on its location: Inguinal. This type is in the groin or scrotum. It is more common in men. But, women can get this hernia, too. Femoral. This type is in the groin, upper thigh (where the leg bends), or labia. It is m ore common in women. Ventral. This type is in the abdominal wall. Umbilical. This type occurs around the navel (belly button). Incisional. This type occurs at the site of a previous surgery. The condition of the hernia can help determine how urgently it needs to be treated. Reducible. It goes back in by itself, or it can be pushed back in. Irreducible. It can t be pushed back in. Incarcerated/strangulated. The intestine is trapped (incarcerated). If this happens, you won t be able to push the bulge back in. If the incarcerated hernia isn t treated, it m ay become strangulated. This means the area loses blood supply and the tissue may .This requires emergency surgery. You need treatment right away. In most cases, a hernia will not heal on its own.You may need surgery to repair the defect in the abdominal wall or groin. You ll be told more about surgery, if needed. If your symptoms are not severe, treatment may sometimes be delayed. In such cases, you anju l need regular follow-up visits with the provider. You ll be asked to keep track of your s ymptoms and to watch for signs of more serious problems. You may also be given guidelines si milar to the home care instructions below. Home care To help keep a hernia from getting worse, you may be advised to: Avoid heavy lifting and straining as directed. Take steps to prevent constipation, such as eating more fiber and drinking more water. T his may help reduce straining that can occur when having a bowel movement. Reducing strainin g may help keep your symptoms from getting worse. Maintain a healthy weight or lose excess weight. This can help reduce strain on abdomina l muscles and tissues. Stop smoking. This can help prevent coughing that may also strain abdominal muscles and tissues. Follow-up care Follow up with your healthcare provider, or as directed.If imaging tests were done, they will be reviewed a doctor. You will be told the results and any new findings that may affect your care. When to seek medical advice Call your healthcare provider right away if any of these occur: Hernia hardens, swells, or grows larger Hernia can no longer be pushed back in Pain moves to the lower right abdomen (just below the waistline), or spreads to the back Call 911 Call 911if any of these occur: Severe pain, redness, or tenderness in the area near the hernia Pain worsens quickly and doesn t get better Inability to have a bowel movement or pass gas Fever of 100.4F (38C) or higher, or as directed by your healthcare provider Date Last Reviewed: 05/24/[id number] [employer] [address] [place] [address], [place] [address]. All righ ts reserved. This information is not intended as a substitute for professional medical care. Always follow your healthcare professional's instructions. documented in this encounter Progress Notes Scot Anton MD - 09/06/2018 11:00 AM PDTFormatting of this note might be different fr om the original. Subjective: Patient ID: Pepper Hand is a 58 y.o. female who is here today for Skin Lesion (ri ght inner, upper arm) HPI She thinks her biopsy site got infected. Her grandson pulled bandaid and picked at it. It is a little red. She applied topical antibiotic without improvement. No fever She has an abdominal hernia which is getting bigger. Sometimes hurts. Often with nausea. No vomiting, melena, hematochezia. Patient's medications, allergies, past medical, surgical, social and family histories were obtained and reviewed as appropriate. Review of Systems Objective: BP 114/70 | Pulse 63 | Temp 36.4 C (97.5 F) (Temporal) | Resp 18 | Wt 68.9 kg (151 lb 14.4 oz) | LMP (LMP Unknown) | SpO2 93% | ? No | BMI 27.78 kg/m Physical Exam Constitutional: Very pleasant, well developed, NAD Abdominal: Soft. She exhibits mass (~golf ball sized soft reducible mass superior to umbili cus, protrudes with valsalva. Estimate nickel sized fascia defect). She exhibits no distens ion. There is no tenderness. There is no rebound and no guarding. Skin: Right upper arm: ~2 mm border of erythema around central scab of biopsy site. No induratio n, discharge, fluctuance Assessment & Plan: 1. Cellulitis of right upper extremity: Very mild - Start topical abx - If worsens or does not improve will start keflex - Educated on warning signs - mupirocin (BACTROBAN) 2% ointment; apply to affected area 3 times per day for 3-5 days, r eevaluate if no response Dispense: 22 g; Refill: 0 - cephalexin (KEFLEX) 500 mg capsule; Take 1 capsule by mouth 4 times daily for 7 days. Di spense: 28 capsule; Refill: 0 2. Ventral hernia without obstruction or gangrene - Educated on warning signs - US Abdomen Limited; Future Joss Anton MD documented in this e ncounter Plan of Treatment + +---------+--------+ + + | Name | Type | Priori | Associated Diagnoses | Order Schedule | | | | ty | | | + +---------+--------+ + + | US Abdomen Limited | Imaging | Routin | Ventral hernia | Expected: | | | | e | without obstruction | 09/06/2018, Expires: | | | | | or gangrene | 09/07/2019 | + +---------+--------+ + + documented as of this encounter Visit Diagnoses + + | Diagnosis | + + | Cellulitis of right upper extremity - Primary Cellulitis and abscess of upper arm and | | forearm | + + | Ventral hernia without obstruction or gangrene Ventral hernia, unspecified, without | | mention of obstruction or gangrene | + + documented in this encounter"
--- OUTSIDE RECORDS SUMMARY | ~2019-02-03 | XMS | Encounter Summary ---
Demographics + + + | Address | [address] | | | [place] [address] | + + + | Home Phone | | + + + | Preferred Language | Unknown | + + + | Marital Status | | + + + | Orthodox Affiliation | 1041 | + + + | Race | Unknown | + + + | Ethnic Group | Unknown | + + + Author + + + | Author | [facility] | | | and [place] | + + + | Organization | [facility] | | | [...] Team Providers + +------+ + | Care Ore Tester Name | Role | Phone | + +------+ + | Scot Anton MD | PCP | | + +------+ + Encounter Details +--------+ + + + + | Date | Type | Department | Care Team | Description | +--------+ + + + + | 10/17/ | Abstract | [facility] | Provider, | | | 2017 | | [facility] [place] | [address] | | | | | [address] | [place]. | | | | | [place] | [place] [address] | | | | | [address] | | | | | | [phone] | | | +--------+ + + + [...] + +--------+ + + + | [facility]GE EXTERNAL IMAGE | Routin | 03/31/2015 | | Results for this | | | e | | | procedure are in the | | | | | | results section. | + +--------+ + + + documented in this encounter Results RIDGE External Image (03/31/2015) + + + + + + | Component | Value | Ref Range | Performed | Pathologist | | | | | At | Signature | + + + + + + | EXT | 1-Negative | | | | | MAMMOGRAPHY | | | | | + + + + + + documented in this encounter Visit Diagnoses Not on filedocumented in this encounter"
--- OUTSIDE RECORDS SUMMARY | ~2019-02-03 | XMS | Encounter Summary ---
Demographics + + + | Address | [address] | | | [place] [address] | + + + | Home Phone [...] Team Providers + +------+ + | Care Gambreler Name | Role | Phone | + [...] | | | | [place] | [address] | | | | | [address] | | | | | | [phone] | | | +--------+--------+ + + + [...] with anxiety Dysthymic disorder | + + documented in this encounter"
--- OUTSIDE RECORDS SUMMARY | ~2019-02-03 | XMS | Encounter Summary ---
Demographics + + + | Address | [address] | | | [place] [address] | + + + | Home Phone | | + + + | Preferred Language | Unknown | + + + | Marital Status | | + + + | Religion Affiliation | 1041 | + + + [...] Team Providers + +------+ + | Care Analytical Manager Name | Role | Phone | [...] | MD [address] | ([facility]) (Primary Dx) | | | | CENTER [address] | [facility] [place] | | | | | [place], [place] | [place] [address] | | | | | [address] | [phone] | | | | | [phone] | | | +--------+ + + + [...]
--- OUTSIDE RECORDS SUMMARY | ~2019-02-03 | XMS | Encounter Summary ---
Demographics + + + | Address | [address] | | | [place] [address] | + + + | Home Phone [...] Team Providers + +------+ + | Care Harness Puller Name | Role | Phone | + +------+ + PCP | Unavailable | + +------+ + Reason for Visit + + + | Reason | Comments | + + + | Medication Refill | | + + + Encounter Details +--------+--------+ + + + | Date | Type | Department | Care Team | Description | +--------+--------+ + + + | 04/12/ | Refill | [facility] [place] [facility] | Pepper Kamara | Medication Refill | | 2012 | | [facility] [place] | L, SULPHATE TESTER [address] | | | | | [address] | [address] [place] | | | | | [place] | [address] | | | | | [address] | | | | | | [phone] | | | +--------+--------+ + + + [...]
--- OUTSIDE RECORDS SUMMARY | ~2019-02-03 | XMS | Encounter Summary ---
Demographics + + + | Address | [address] | | | [place] [address] | + + + | Home Phone | | + + + | Preferred Language | Unknown | + + + | Marital Status | | + + + | Samaritan Affiliation | 1041 | + + + | Race | Unknown | + + + | Ethnic Group | Unknown | + + + Author + + + | Author | [facility] | | | and [place] | + + + | Organization | [facility] | | | [...] Team Providers + +------+ + | Care Shop Helper Name | Role | Phone | + +------+ + | Pepper Kamara | PCP | | + +------+ + Encounter Details +--------+ + + + + | Date | Type | Department | Care Team | Description | +--------+ + + + + | 09/01/ | Hospital | [facility] | Blaine Leavitt | | | 2010 | Encounter | [facility] | MD Janes, FACS [address] | | | | | [address] | [place] | | | | | [place] | [place] [address] | | | | | [address] | [phone] | | | | | [phone] | | | +--------+ + + + [...] [address] | [place] | [phone] | | [facility] | | [address] | | | - LABORATORY | | | | + + + + + | [address] | [address] | [place] | | | [facility] | | [address] | | | - LABORATORY | | [...] [address] | [place] | [phone] | | [facility] | | [address] | | | - LABORATORY | | | | + + + + + | [address] | [address] | [place], [place] | | | [facility] | | [address] | | | - LABORATORY | | | | + + + + + documented in this encounter Visit Diagnoses Not on filedocumented in this encounter"
--- OUTSIDE RECORDS SUMMARY | ~2019-02-03 | XMS | Encounter Summary ---
Demographics + + + | Address | [address] | | | [place] [address] | + + + | Home Phone | | + + + | Preferred Language | Unknown | + + + | Marital Status | | + + + | Evangelical Affiliation | 1041 | + + + | Race | Unknown | + + + | Ethnic Group | Unknown | + + + Author + + + | Author | [facility] | | | and [place] | + + + | Organization | [facility] | | [...] Team Providers + +------+ + | Care Travel Money Advisor Name | Role | Phone | + +------+ + PCP | Unavailable | + +------+ + Encounter Details +--------+ + + + + | Date | Type | Department | Care Team | Description | +--------+ + + + + | 10/11/ | Hospital | [facility] | | | | 2006 | Encounter | MED CTR XRAY [address] | | | | | [place] | | | | | | [place] [address] | | | | | | [phone] | | | +--------+ + + + [...]
--- OUTSIDE RECORDS SUMMARY | ~2019-02-03 | XMS | Encounter Summary ---
Demographics + + + | Address | [address] | | | [place] [address] | + + + | Home Phone | | + + + | Preferred Language | Unknown | + + + | Marital Status | | + + + | Yazdanism Affiliation | 1041 | + + + | Race | Unknown | + + + | Ethnic Group | Unknown | + + + Author + + + | Author | [facility] | | | and [place] | + + + | Organization | [facility] | | | and [...] Team Providers + +------+ + | Care Mobile Sales Consultant Name | Role | Phone | + +------+ + | Scot Anton MD | PCP | | + +------+ + Reason for Visit + + + | Reason | Comments | + + + | Procedure | | + + + Encounter Details +--------+ + + + + | Date | Type | Department | Care Team | Description | +--------+ + + + + | 02/27/ | Telephone | [facility] | Dick Medina MD | Procedure | | 2017 | | GASTROENTEROLOGY | [address], [place] | | | | | [address] [place] | [address] [place], [place] | | | | | [address] [place], [place] | [address] | | | | | [address] | | | | | | [phone] | | | +--------+ + + + [...]
--- OUTSIDE RECORDS SUMMARY | ~2019-02-03 | XMS | Encounter Summary ---
Demographics + + + | Address | [address] | | | [place] [address] | + + + | Home Phone | | + + + | Preferred Language | Unknown | + + + | Marital Status | | + + + | Episcopal Affiliation | 1041 | + + + | Race | Unknown | + + + | Ethnic Group | Unknown | + + + Author + + + | Author | [facility] | | | and Samirana | + + + | Organization | [facility] | | [...] Team Providers + +------+ + | Care Cobbler Sole Name | Role | Phone | + +------+ + | Scot Anton MD | PCP | | + +------+ + Reason for Visit + + + | Reason | Comments | + + + | Follow-up | | + + + | Abdominal Pain | | + + + Encounter Details +--------+---------+ + + + | Date | Type | Department | Care Team | Description | +--------+---------+ + + + | 02/02/ | Office | [facility] | Scot Anton, | Abdominal pain, left | | 2017 | Visit | [facility] [place] | [address] | upper quadrant | | | | [address] | [place] | (Primary Dx); | | | | [place], [place] | [address] | Gastroesophageal | | | | [phone] | | reflux disease, | | | | [phone] | | esophagitis presence | | | | | | not specified; | | | | | | Anxiety; Need for | | | | | | nloueemxva-pymyert-k | | | | | | ertussis (Tdap) | | | | | | vaccine, | | | | | | adult/adolescent; | | | | | | Need for | | | | | | 23-polyvalent | | | | | | pneumococcal | | | | | | polysaccharide | | | | | | vaccine | +--------+---------+ + + + Social History [...] + + + | Blood Pressure | 120/84 | 02/02/2017 11:42 AM | | | | | PST | | + + + + + | Pulse | 84 | 02/02/2017 11:42 AM | | | | | PST | | + + + + + | Temperature | 36.4 C (97.5 F) | 02/02/2017 11:42 AM | | | | | PST | | + + + + + | Respiratory Rate | 20 | 02/02/2017 11:42 AM | | | | | PST | | + + + + + | Oxygen Saturation | 97% | 02/02/2017 11:42 AM | | | | | PST | | + + + + + | Inhaled Oxygen | - | - | | | Concentration | | | | + + + + + | Weight | 68.7 kg (151 lb 7.3 | 02/02/2017 11:42 AM | | | | oz) | PST | | + + + + + | Height | 157.5 cm (5' 2.01") | 02/02/2017 11:42 AM | | | | | PST | | + + + + + | Body Mass Index | 27.69 | 02/02/2017 11:42 AM | | | | | PST | | + + + + + documented in this encounter Patient Instructions Patient Instructions Scot Anton MD - 02/02/2017 11:15 AM PSTHave labs here today. Start the omeprazole 20 mg daily - ideally 30 minutes before breakfast. Start the Lexapro as prescribed. It takes 2-3 weeks of consistent use to help improve the mood. If you feel manic or have thoughts of hurting yourself or others - call our office, 12 04, crisis line , or [phone], or go to the ER. Or you can text the crisi s line at: 179617 Or chat online at: www.suicidepreventionlifeline.org/gethelp/lifelinech at.aspx Unknown Causes of Abdominal Pain(Female) The exact cause of your abdominal (stomach) pain is not clear. This does not mean that this is something to worry about. Everyone likes to know the exact cause of the problem, but katerin etimes with abdominal pain, there is no clear-cut cause, and this could be a good thing. The good news is that your symptoms can be treated, and you will feel better. Your condition does not seem serious now; however, sometimes the signs of a serious problem may take more time to appear. For this reason,it is important for you to watch for any ne w symptoms, problems,or worsening of your condition. Over the next few days, the abdominal pain may come and go, or be continuous. Other common symptoms can include nausea and vomiting. Sometimes it can be difficult to tell if you feel nauseous, you may just feel bad and not associate that feeling with nausea. Constipation, di arrhea, and a fever may go along with the pain. The pain may continue even if treated correctly over the following days. Depending on how t hings go, sometimes the cause can become clear and may require further or different treatmen t. Additional evaluations, medications, or tests may also be needed. Home care Your healthcare provider may prescribe medicine for pain, symptoms, or an infection. Foll ow the healthcare provider's instructions for taking these medicines. General care Rest as much as you can until your next exam. No strenuous activities. Try to find positions that ease discomfort. A small pillow placed on the abdomen may hel p relieve pain. Something warm on your abdomen (such as a heating pad) may help, but be careful not to b urn yourself. Diet Do not force yourself to eat, especially if having cramps, vomiting, or diarrhea. Water is important so you do not get dehydrated. Soup may also be good. Sports drinks ma y also help, especially if they are not too acidic. Make sure you don't drink sugary drinks as this can make things worse. Take liquids in small amounts. Do not guzzle them. Caffeine sometimes makes the pain and cramping worse. Avoid dairy products if you have vomiting or diarrhea. Don't eat large amounts at a time. Wait a few minutes between bites. Eat a diet low in fiber (called a low-residue diet). Foods allowed include refined bread s, white rice, fruit and vegetable juices without pulp, tender meats. These foods will pass more easily through the intestine. Avoid whole-grain foods, whole fruits and vegetables, meats, seeds and nuts, fried or fa tty foods, dairy, alcohol and spicy foods until your symptoms go away. Follow-up care Follow up with your healthcare provider, or as advised, if your pain does not begin to impr ove in the next 24 hours. Call [phone] if any of these occur: Trouble breathing Confusion Fainting or loss of consciousness Rapid heart rate Seizure When to seek medical advice Call your healthcare provider right away if any of these occur: Pain gets worse or moves to the right lower abdomen New or worsening vomiting or diarrhea Swelling of the abdomen Unable to pass stool for more than3 days Fever of 100.4F (38C) or higher, or as directed by your healthcare provider. Blood in vomit or bowel movements (dark red or black color) Jaundice (yellow color of eyes and skin) Weakness, dizziness Chest, arm, back, neck or jaw pain Unexpected vaginal bleeding or missed period Can't keep down liquids or water and are getting dehydrated Date Last Reviewed: 03/24/201519990217-2831 [employer]. [address] [place] [address], [place] [address]. All righ ts reserved. This information is not intended as a substitute for professional medical care. Always follow your healthcare professional's instructions. documented in this encounter Progress Notes Scot Anton MD - 02/02/2017 11:15 AM PSTFormatting of this note might be different fr om the original. Subjective: Patient ID: Pepper aHnd is a 56 y.o. female here for anxiety, abdominal pain. Ac companied by mother. HPI She took effexor 37.5 mg daily x 2 days and felt "nasty. Creepy crawlies." With reflexion she feels Lexapro helped as long as she received name brand. She describes her mood as "com es and goes." She does still have thoughts of but endorses safety. Endorses safety. Her mother removed the guns from their home. She took ciprofloxacin as prescribed but not the flagyl - just didn't want to take it. Anamika rrhea resolved. She continues to have left upper abdominal pain worse after eating. Associ ated with "really bad acid reflux" which used to be well controlled on omeprazole. Also wit h nausea. No fever, vomiting, melena, hematochezia. s. Patient's medications, allergies, past medical, surgical, social and family histories were obtained and reviewed as appropriate. Review of Systems Objective: BP 120/84 | Pulse 84 | Temp 36.4 C (97.5 F) (Temporal) | Resp 20 | Ht 1.575 m (5' 2 .01") | Wt 68.7 kg (151 lb 7.3 oz) | LMP (LMP Unknown) | SpO2 97% | BMI 27.69 kg/m Physical Exam Constitutional: She is oriented to person, place, and time. She appears well-developed and well-nourished. No distress. Eyes: No scleral icterus. Abdominal: Soft. She exhibits no distension and no mass. Tenderness: mild LUQ tenderness. T here is no rebound and no guarding. Neurological: She is alert and oriented to person, place, and time. Skin: No rash noted. Psychiatric: Slightly disheveled appearance. Thought organized and linear. Not anxious appearing or pa cing. Full affect, smiles and laughs appropriately. Assessment: Pepper was seen today for follow-up and abdominal pain. Diagnoses and all orders for this visit: Abdominal pain, left upper quadrant: Suspect due to gastritis. No red flag symptoms. Nando ign exam. - Start omeprazole - Check labs as previously ordered - Lifestyle changes - US if not improving - Lipase; Future Gastroesophageal reflux disease, esophagitis presence not specified - omeprazole (PRILOSEC) 20 mg capsule; Take 1 capsule by mouth every morning (before br eakfast). For GERD, abdominal pain Anxiety: Question bipolar. Denies substance abuse. Refuses mood stabilizers - just want ing something for anxiety. Given no obvious mike symptoms in past and no cycling in over 2 0 years - I'm ok with not adding mood stabilizer at this time. But educated on warning sign s of mike, side effects of medications. Citalopram, Zoloft, Effexor were either ineffective or not tolerated. Paxil may have been helpful. Guns are out of home. Endorses safety. - LEXAPRO 20 MG tablet; Take 1/2 tablet by mouth daily x 5 days, then increase to 1 tab let daily. To help mood and anxiety Need for xgjiqhreyg-ismcmeg-jusfswyza (Tdap) vaccine, adult/adolescent - Tdap vaccine greater than or equal to 7yo IM [90598] Need for 23-polyvalent pneumococcal polysaccharide vaccine - Pneumococcal polysaccharide vaccine 23-valent greater than or equal to 2yo subcutaneo us/IM [01271] Return in about 1 month (around 03/04/2017), or if symptoms worsen or fail to improve. Joss Anton MD imin, CARISSA Thompson - 02/02/2017 11:15 AM PSTPatient is here in follow up to her stomach pain. She continues to have the pain. Also complains of Effexor making her skin crawl. After obtaining informed consent, the immunization is given by Oni TERRAZAS. documented in this encounter Plan of Treatment Not on filedocumented as of this encounter Results Lipase (02/02/2017 12:40 PM PST) + +-------+ + + + | Component | Value | Ref Range | Performed | Pathologist | | | | | At | Signature | + +-------+ + + + | Lipase | 23 | 0 - 60 U/L | [facility] | | | | [...] + + | [facility] | [address] | [place] | [phone] | | [facility] | | [address] | | | - LABORATORY | | | | + + + + + documented in this encounter Visit Diagnoses + + | Diagnosis | + + | Abdominal pain, left upper quadrant - Primary | + + | Gastroesophageal reflux disease, esophagitis presence not specified | + + | Anxiety Anxiety state, unspecified | + + | Need for kflakekibc-ykzesev-xvxyzcfeg (Tdap) vaccine, adult/adolescent Need for | | prophylactic vaccination with combined hdlnxjlecd-lxvaopo-ousjaoiuf (DTP) vaccine | + + | Need for 23-polyvalent pneumococcal polysaccharide vaccine | + + documented in this encounter
--- OUTSIDE RECORDS SUMMARY | ~2019-02-03 | XMS | Encounter Summary ---
Demographics + + + | Address | [address] | | | [place] [address] | + + + | Home Phone | | + + + | Preferred Language | Unknown | + + + | Marital Status | | + + + | Episcopalian Affiliation | 1041 | + + + [...] Team Providers + +------+ + | Care Professor Of Environmental Engineering Name | Role | Phone | + [...] + + | Closed | Specialty | Cardiac | Diagnoses | [facility] | | | Services | Rehabilitatio | Chronic | Scot Flowers MD | | | | Required | n | obstructive | [address] | Rehabilitatio | | | | | pulmonary | [address] [place] | [address] | | | | | disease, | [place], [place] | [place] | | | | | unspecified | [address] | [place] | | | | | COPD type | Phone: | [phone] | | | | | ([facility]) | [phone] | Phone: | | | | | Procedures | Fax: | [phone] | | | | | Pulmonary | [phone] | Fax: | | | | | | | [phone] | +--------+ + + + + + Reason for Visit + + + | Reason | Comments | + + + | TCM - Hosp FU | | + + + | Shortness of Breath | complains of some SOB occasionally | + + + | Hyperglycemia | complains of having high blood sugars. has been using her | | | roommates meter | + + + | Medication Refill | would like to discuss getting albuterol sulfate instead of the | | | ventolin HFA inhaler | + + + Encounter Details +--------+---------+ + + + | Date | Type | Department | Care Team | Description | +--------+---------+ + + + | 10/11/ | Office | [facility] | [place] Scot Flowers, | Chronic obstructive | | 2019 | Visit | [facility] [place] | [address] | pulmonary disease, | | | | [address] | [place] | unspecified COPD | | | | [place] | [address] | type (HCC) (Primary | | | | [address] | | Dx); Dog bite, | | | | [phone] | | initial encounter; | | | | | | Abnormal glucose; | | | | | | Anxiety | +--------+---------+ + + + Social History [...] + + + | Blood Pressure | 130/78 | 10/11/2018 8:26 AM | | | | | PDT | | + + + + + | Pulse | 58 | 10/11/2018 8:26 AM | | | | | PDT | | + + + + + | Temperature | 36.9 C (98.5 F) | 10/11/2018 8:26 AM | | | | | PDT | | + + + + + | Respiratory Rate | 20 | 10/11/2018 8:26 AM | | | | | PDT | | + + + + + | Oxygen Saturation | 96% | 10/11/2018 8:26 AM | | | | | PDT | | + + + + + | Inhaled Oxygen | - | - | | | Concentration | | | | + + + + + | Weight | 68.4 kg (150 lb 12.7 | 10/11/2018 8:26 AM | | | | oz) | PDT | | + + + + + | Height | - | - | | + + + + + | Body Mass Index | 27.58 | 09/20/2018 9:54 PM | | | | | PDT [...] Instructions Patient Instructions Scot Anton MD - 10/11/2018 8:30 AM PDTStart the Symbicort twic e daily as prescribed. Swish and spit after using. If too expensive or insurance denies it - please let us know. If you do not hear from pulmonary rehab by next Sunday - please let us know. Please stop by the lab for blood work. You need to be fasting - nothing to eat or drink ot her than water or black coffee for 10 hours. No alcohol for 24 hours. Lab Hours: Sunday-Sunday 7 am to 5:30 pm [place] [address] [place] [address] [facility] [address] [facility] Saturdays & Sundays 8 am to noon [facility] (you do not have to see a doctor, just tell them you are there for l abs) documented in this encounter Progress Notes Scot Anton MD - 10/11/2018 8:30 AM PDTFormatting of this note might be different fr om the original. Subjective: Patient ID: Pepper Hand is a 58 y.o. female who is here today for TCM - Hosp FU; Shortness of Breath (complains of some SOB occasionally); Hyperglycemia (complains of having high blood sugars. has been using her roommates meter); and Medication Refill (would like t o discuss getting albuterol sulfate instead of the ventolin HFA inhaler) HPI She was admitted 09/20-09/23 for COPD exacerbation. She attributes admission for COPD flare t o dealing with a lot of stress. Her landlord is threatening to evict her so he can fix up t he house, her cat bit her, her cat then of cancer. She was treated azithromycin, syste julian steroids and inhalers. She was discharged with with prednisone which she completed. Sh jr is breathing much better. She sleeps with 2 lpm and rarely uses with exertion. She would like to start pulmonary rehab but hasn't heard from them. She is using albuterol 3 times p er week. However she finds her daughter's red albuterol sulfate better and would like to tr y it. She is using Spiriva daily. She needs a new nebulizer - never received one - so she is not using budesonide or duonebs. No fever, SOB, wheezing. Their eighbor's dog bit her right finger yesterday. It thought she had food in her hands. Dog is well known to them with all of her immunizations. No fever, discharge, excessive bl eeding. Twice her fasting blood sugars were elevated - 169 and 175. She was not on prednisone at t he time. She feels she is always thirsty. No weight loss, vision changes, polyuria. Patient's medications, allergies, past medical, surgical, social and family histories were obtained and reviewed as appropriate. Current Outpatient Medications on File Prior to Visit Medication Sig Dispense Refill aspirin 81 MG tablet Take 1 tablet by mouth Daily. 30 tablet 1 atenolol (TENORMIN) 25 mg tablet Take 1 tablet by mouth Daily. 30 tablet 5 escitalopram (LEXAPRO) 20 mg tablet Take 1 tablet by mouth Daily. To help mood and anxi ety 30 tablet 5 loratadine (CLARITIN) 10 mg tablet Take 1 tablet by mouth Daily. 30 tablet 0 nicotine (NICODERM) 21 mg/[address] 1 patch onto the skin Daily. 28 patch 0 omeprazole (PRILOSEC) 20 mg capsule Take 20 mg by mouth Daily as needed for Heartburn. 1 tiotropium (SPIRIVA HANDIHALER) 18 mcg inhalation capsule inhale contents of 1 capsule by mouth once daily 30 capsule 5 No current facility-administered medications on file prior to visit. Review of Systems Objective: BP 130/78 | Pulse 58 | Temp 36.9 C (98.5 F) (Temporal) | Resp 20 | Wt 68.4 kg (150 lb 12.7 oz) | LMP (LMP Unknown) | SpO2 96% | BMI 27.58 kg/m Physical Exam Constitutional: Very pleasant, well developed, NAD Cardiovascular: Normal rate, regular rhythm, normal heart sounds and intact distal pulses. Exam reveals no gallop and no friction rub. No murmur heard. Pulmonary/Chest: Breath sounds normal. No respiratory distress. She has no wheezes. She has no rales. Speaking comfortably on RA Skin: Right middle finger with 2 shallow abrasions near cuticle. No erythema, discharge, swellin g Psychiatric: She has a normal mood and affect. Her behavior is normal. Thought content norm al. Assessment & Plan: 1. Chronic obstructive pulmonary disease, unspecified COPD type (HCC): Hospital records re viewed. - Appears Symbicort is covered so will avoid nebulized budesonide and try Symbicort - Reports better results with ProAir vs Ventolin - Advised to quit smoking - budesonide-formoterol (SYMBICORT) 160-4.5 mcg/puff inhaler; Inhale 2 puffs into the lungs 2 times daily. Maintenance inhaler Dispense: 1 Inhaler; Refill: 2 - albuterol (PROAIR HFA) 90 mcg/puff inhaler; Inhale 2 puffs into the lungs every 4 hours a s needed for Wheezing or Shortness of Breath. Dispense: 18 g; Refill: 5 - * [facility] - AMB Referral 2. Dog bite, initial encounter: No signs of infection - Educated on warning signs 3. Abnormal glucose - Hemoglobin A1C; Future Return in about 1 month (around 11/11/2018). Transitional care management plan Verified communication made/attempted and documented. See prior phone note documenting cont act with patient within 2 business days of discharge. (Verified the patient was not transfer red to a SNF.) Discharge information reviewed, and the following assessments were made: Medication reconciliation Medication list updated and new medication list given to patient/caregivers in the after vi sit summary Went over rationale for treatment and assessed adherence. Referrals: Pulmonary rehab Community resources identified for patient/caregivers: She has legal assistance regarding l andlord dispute Durable medical equipment ordered: Holding off on nebulizer Additional communication delivered/planned Specialists: JOSE Anton MD documented in this e ncounter Plan of Treatment + +------+--------+ + + | Name | Type | Priori | Associated Diagnoses | Order Schedule | | | | ty | | | + +------+--------+ + + | Hemoglobin A1C | Lab | Routin | Abnormal glucose | 1 Occurrences | | | | e | | starting 10/11/2018 | | | | | | until 10/11/2019 | + +------+--------+ + + + + +--------+ + + | Name | Type | Priori | Associated Diagnoses | Order Schedule | | | | ty | | | + + +--------+ + + | * [facility] | Outpatient | Routin | Chronic | Ordered: 10/11/2018 | | - AMB Referral | Referral | e | obstructive | | | | | | pulmonary disease, | | | | | | unspecified COPD | | | | | | type (HCC) | | + + +--------+ + + documented as of this encounter Visit Diagnoses + + | Diagnosis | + + | Chronic obstructive pulmonary disease, unspecified COPD type (HCC) - Primary | + + | Dog bite, initial encounter | + + | Abnormal glucose Other abnormal glucose | + + | Anxiety Anxiety state, unspecified | + + documented in this encounter"
--- OUTSIDE RECORDS SUMMARY | ~2019-02-03 | XMS | Encounter Summary ---
Demographics + + + | Address | [address] | | | [place] [address] | + + + | Home Phone [...] Team Providers + +------+ + | Care Project Account Manager Name | Role | Phone | + +------+ + PCP | Unavailable | + +------+ + Encounter Details +--------+ + + + + | Date | Type | Department | Care Team | Description | +--------+ + + + + | 07/21/ | Hospital | [facility] | Pepper Kamara | | | 2008 | Encounter | MED CTR XRAY [address] | L, MELLOWING MACHINE OPERATOR [address] | | | | | [place] | [place] | | | | | [place] [id number] | [id number] | | | | | [phone] | | | +--------+ + + + [...]
--- OUTSIDE RECORDS SUMMARY | ~2019-02-03 | XMS | Encounter Summary ---
Demographics + + + | Address | [address] | | | [place] [address] | + + + | Home Phone [...] Team Providers + +------+ + | Care Pedicab Driver Name | Role | Phone | [...] + + | 12/02/ | Telephone | [facility] | Scot Anton, | Medication Follow-up | | 2019 | | [facility] [place] | [address] | | | | | [address] | [place] | | | | | [place] | [address] | | | | | [address] | | | | | | [phone] | | | +--------+ + + + [...]
--- OUTSIDE RECORDS SUMMARY | ~2019-02-03 | XMS | Encounter Summary ---
Demographics + + + | Address | [address] | | | [place] [address] | + + + | Home Phone | | + + + | Preferred Language | Unknown | + + + | Marital Status | | + + + | Latter Day Affiliation | 1041 | + + + | Race | Unknown | + + + | Ethnic Group | Unknown | + + + Author + + + | Author | [facility] | | | and Samirana | + + + | Organization | [facility] | | | [...] Team Providers + +------+ + | Care Environmental Research Project Manager Name | Role | Phone | + +------+ + PCP | Unavailable | + +------+ + Encounter Details +--------+ + + + + | Date | Type | Department | Care Team | Description | +--------+ + + + + | 08/23/ | Hospital | [facility] | | | | 2008 | Encounter | [facility] | | | | | | CENTER [address] | | | | | | [place] | | | | | | [address] | | | | | | [phone] | | | +--------+ + + + [...]
--- OUTSIDE RECORDS SUMMARY | ~2019-02-03 | XMS | Encounter Summary ---
Demographics + + + | Address | [address] | | | [place] [address] | + + + | Home Phone [...] Team Providers + +------+ + | Care Clay Press Operator Name | Role | Phone | [...] + + | Closed | Specialty | Ophthalmology | Diagnoses | Sloane | Felicita, | | | Services | | Vision loss | Scot Flowers MD | Kimani | | | Required | | of right | [address] | MD [place] | | | | | eye | [place] | [address] | | | | | | [place] | [place] | | | | | | [address] | [place] | | | | | | Phone: | [phone] | | | | | | [phone] | Phone: | | | | | | Fax: | [phone] | | | | | | [phone] | | +--------+ + + + + + Reason for Visit + + + | Reason | Comments | + + + | TCM - Hosp FU | having trouble breathing when she is moving around | + + + | Other | having challenges with her portable oxygen. states tanks are | | | heavy and she is out and about to long and runs out. Wonders if | | | she would get a different one | + + + | Home Health | would like to discuss her home health. was suppose to have | | | cardiopulmonary rehab. She is confused which one she really needs | | | to see if she qualifies | + + + | Paperwork | discuss disabled parking permit | + + + Encounter Details +--------+---------+ + + + | Date | Type | Department | Care Team | Description | +--------+---------+ + + + | 04/25/ | Office | [facility] | Barry, Scot R, | Chronic obstructive | | 2019 | Visit | [facility] | [address] | pulmonary disease, | | | | [address] | [place] | unspecified COPD | | | | [place] | [address] | type (HCC) (Primary | | | | [address] | | Dx); Neoplasm, brain | | | | [phone] | | (HCC); Vision loss | | | | | | of right eye; | | | | | | Hyperlipidemia, | | | | | | unspecified | | | | | | hyperlipidemia type | +--------+---------+ + + + Social History [...] Yes; Counseling Given: Yes | | Comments: down [...] + + + | Blood Pressure | 114/78 | 04/25/2018 2:58 PM | | | | | PST | | + + + + + | Pulse | 71 | 04/25/2018 2:58 PM | | | | | PST | | + + + + + | Temperature | 36.7 C (98 F) | 04/25/2018 2:58 PM | | | | | PST | | + + + + + | Respiratory Rate | 20 | 04/25/2018 2:58 PM | | | | | PST | | + + + + + | Oxygen Saturation | 98% | 04/25/2018 2:58 PM | | | | | PST | | + + + + + | Inhaled Oxygen | - | - | | | Concentration | | | | + + + + + | Weight | 67.8 kg (149 lb 7.6 | 04/25/2018 2:58 PM | | | | oz) | PST | | + + + + + | Height | - | - | | + + + + + | Body Mass Index | 27.34 | 04/17/2018 11:43 AM | | | | | PST | | + + + + + documented in this encounter Patient Instructions Patient Instructions Scot Anton MD - 04/25/2018 3:00 PM PSTAs you know - the best t violeta you can do for your health is quit smoking. START the Incruse Ellipta EVERY day to help improve the breathing. Continue to use the alb uterol as needed for wheezing or shortness of breath. If you do not hear from Home Health by end of day tomorrow - please let us know. If you do not hear from an ophthalmology office by next Sunday - please let us know We will repeat fasting labs in July We will repeat an MRI of your brain in JulyElectronically signed by Scot Anton MD at 0 04/25/2018 3:45 PM PST documented in this encounter Progress Notes Scot Anton MD - 04/25/2018 3:00 PM PSTFormatting of this note might be different fr om the original. Subjective: Patient ID: Pepper Hand is a 58 y.o. female who is here today for TCM - Hosp FU ( having trouble breathing when she is moving around); Other (having challenges with her kaylin ble oxygen. states tanks are heavy and she is out and about to long and runs out. Wonders if she would get a different one); Home Health (would like to discuss her home health. was land ppose to have cardiopulmonary rehab. She is confused which one she really needs to see if serena norris qualifies); and Paperwork (discuss disabled parking permit) HPI She was admitted 04/17-04/21 for COPD exacerbation. While admitted she had nocturnal hypoxem ia to 88%, exertional hypoxia to 85%. She was treated with steroids, nebulizers, azithromyc in and supplemental oxygen. Discharged with supplemental oxygen 2 lpm, z-karen and prednisone which she took as prescribed. She is using the in-home oxygen but her portable oxygen is t oo big and cumbersome so she has not been using it. She uses in-home medical for oxygen. S he does feel better, but still becomes winded easily. Cough almost completely resolved. Serena norris has not used albuterol since discharge. No fever, hemoptysis. She would like a disabled parking permit due to [place]. Estimates she can walk 1 block unassisted without having to stop and rest. She still has black spots of vision in right eye - "like a retina burn." She does think th ey are fading slightly. She is taking atorvastatin as prescribed and tolerating well. Her shoulder pain resolved. Her mom is recovering from a stroke. She did resume smoking - currently 3 cigarettes per day. She plans to quit once this pack is gone. Patient's medications, allergies, past medical, surgical, social and family histories were obtained and reviewed as appropriate. Review of Systems Objective: BP 114/78 | Pulse 71 | Temp 36.7 C (98 F) (Temporal) | Resp 20 | Wt 67.8 kg (149 lb 7.6 oz) | LMP (LMP Unknown) | SpO2 98% | BMI 27.34 kg/m Physical Exam Constitutional: She is oriented to person, place, and time. Very pleasant, well developed, NAD Eyes: Pupils are equal, round, and reactive to light. Conjunctivae and EOM are normal. Righ t eye exhibits no discharge. Left eye exhibits no discharge. Fundoscopic exam unremarkable per my review Cardiovascular: Normal rate, regular rhythm, normal heart sounds and intact distal pulses. Exam reveals no gallop and no friction rub. No murmur heard. Pulmonary/Chest: Effort normal and breath sounds normal. No respiratory distress. She has n o wheezes. She has no rales. Neurological: She is alert and oriented to person, place, and time. No cranial nerve defici t. MRI Brain and MRA Neck IMPRESSION - No MRI evidence for an acute intrarenal process. Specifically, no acute or subacute ischemia. No evidence for intracranial hemorrhage. Mild white matter disease. The pattern is most suggestive of chronic microvascular ischemic change. There is a 1.3 cm extra-axial mass adjacent to the right temporal lobe with imaging features most consistent with a meningioma. There is a 7 mm homogeneously enhancing nodule close to the course of the right optic nerve and cavernous carotid artery. It is enhancement pattern and location are suggestive of a neurogenic tumor or meningioma. It is uncertain if this is contributing to the patient's reported right eye symptoms. There are 2 small punctate foci of enhancement along the very inferior margin of the right frontal lobe. It is uncertain if these are intra-axial or extra-axial. These are nonspecific. In this area these could be neurogenic tumors or meningiomas as well. Widely patent internal carotid arteries and vertebral arteries bilaterally. No evidence for vertebral artery occlusion or dissection. Recommendation: Follow-up and postcontrast brain MRI in 3-6 months. Dictated and Signed by: Dick Becreril MD Electronically signed: 04/20/2018 4:43 PM Assessment & Plan: 1. Chronic obstructive pulmonary disease, unspecified COPD type (HCC): Improved. Hospital records reviewed and visited by me while inpatient. nocturnal hypoxemia to 88%, exertional hypoxia to 85%. Spiriva ineffective. 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 Dispense: 30 each; Refill: 5 - Start Home Health to improve endurance and assessment at home. Will then transition to pulmonary rehab once able. 2. 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 No concerning systemic symptoms - MRI Brain w Contrast; Future in July 3. Vision loss of right eye: Given persistent vision changes - greatly appreciate ophthalm ology's assistance - Ophthalmology, External - AMB Referral 4. Hyperlipidemia, unspecified hyperlipidemia type: Microvascular changes on MRI and smoke r. So likely will benefit from high dose statin, but will continue atorvastatin 20 mg for n ow - atorvaSTATin (LIPITOR) 20 mg tablet; Take 1 tablet by mouth nightly. To lower cholesterol Dispense: 90 tablet; Refill: 1 - Lipid Panel; Future - Comprehensive Metabolic Panel; Future Return in about 1 month (around 05/23/2018). Transitional care management plan Verified communication made/attempted [...] rationale for treatment and assessed adherence. Referrals: See above Community resources identified for patient/caregivers: Durable medical equipment ordered: Oxygen per above, parking permit Additional communication delivered/planned Specialists: Referral placed and notes sent to ophthalmology Joss Anton MD documented in this e ncounter Plan of Treatment + +------+--------+ + + | Name | Type | Priori | Associated Diagnoses | Order Schedule | | | | ty | | | + +------+--------+ + + | Lipid Panel | Lab | Routin | Hyperlipidemia, | Expected: 06/24/2018 | | | | e | unspecified | (Approximate), | | | | | hyperlipidemia type | Expires: 04/25/2019 | + +------+--------+ + + + + +--------+ + + | Name | Type | Priori | Associated Diagnoses | Order Schedule | | | | ty | | | + + +--------+ + + | Ophthalmology, | Outpatient | Routin | Vision loss of | Ordered: 04/25/2018 | | External - AMB | Referral | e | right eye | | | Referral | | | | | + + +--------+ + + documented as of this encounter Visit Diagnoses + + | Diagnosis | + + | Chronic obstructive pulmonary disease, unspecified COPD type (HCC) - Primary | + + | Neoplasm, brain (HCC) Neoplasm of unspecified nature of brain | + + | Vision loss of right eye Unqualified visual loss, one eye | + + | Hyperlipidemia, unspecified hyperlipidemia type | + + documented in this encounter
--- OUTSIDE RECORDS SUMMARY | ~2019-02-03 | XMS | Encounter Summary ---
Demographics + + + | Address | [address] | | | [place] [address] | + + + | Home Phone [...] + | Author | [facility] | | | and Samirana | + + + | Organization | [facility] | | | [...] Team Providers + +------+ + | Care Cook Box Filler Name | Role | Phone | + +------+ + | Pepper Kamara | PCP | | + +------+ + Encounter Details +--------+ + + + + | Date | Type | Department | Care Team | Description | +--------+ + + + + | 07/13/ | [facility] | [facility] | Pepper Kamara | | | 2010 | Encounter | MED CTR LAB[facility]ATORY | NAVNEET Guerrero [address] | | | | | [address] [place] | [place] | | | | | [place] | [address] | | | | | [address] | | | | | | [phone] | | | +--------+ + + + [...] | + +--------+ + + + | LIPASE | Routin | 07/13/2010 | | Results for this | | | e | 12:43 PM | | procedure are in the | | | | PDT | | results section. | + +--------+ + + + | AMYLASE | Routin | 07/13/2010 | | Results for this | | | e | 12:43 PM | | procedure are in the | | | | PDT | | results section. | + +--------+ + + + | COMPREHENSIVE | Routin | 07/13/2010 | | Results for this | | METABOLIC PANEL | e | 12:43 PM | | procedure are in the | | | | PDT | | results section. | + +--------+ + + + documented in this encounter Results Comprehensive Metabolic Panel (07/13/2010 12:43 PM PDT) + + + + + + | Component | Value | Ref Range | Performed | Pathologist | | | | | At | Signature | + + + + + + | Glucose | 94 | 70 - 109 mg/dL | [facility] [...] + + + + | Alkaline | 73 | 40 - 110 IU/L | [facility] | | | Phosphatase | | | [facility] | [facility] | | | | | [facility] - | | | | | | LABORATORY | | + + + + + + | AST | 20 | 10 - 42 IU/L | [facility] | | | | | | [facility] | | [facility] | [facility] | | | | | [facility] - | | | | | | LABORATORY | | + + + + + + | ALT | 30 | 6 - 45 IU/L | [facility] | | | | | | [facility] | | | | [facility] | [facility] | | | | | [facility] - | | | | | | LABORATORY | | + + + + + + | Bilirubin | 0.8 | 0.2 - 1.0 mg/dL | [facility] | | | Total | | | [facility] | | | | | | [facility] | | | | | | [facility] - | | | | | | LABORATORY | | + + + + + + | Total | 6.8 | 6.0 - 7.8 gm/dL | [facility] | | | Protein | | | [facility] | | | | | | [facility] | | | | | | [facility] - | | | | | | LABORATORY | | + + + + + + | Albumin | 4.1 | 3.2 - 5.0 gm/dL | [facility] | | | | | | [facility] | | | | | | [facility] | | | | | | [facility] - | | | | | | LABORATORY | | + + + + + + | BUN | 16 | 7 - 18 mg/dL | [facility] | | | | | | [facility] | | | | | | [facility] | | | | | | [facility] - | | | | | | LABORATORY | | + + + + + + | Creatinine | 0.97 | 0.60 - 1.30 | [facility] | | | | | mg/dL | [facility] | | | | | | [facility] | | | | | | C[facility] - | | | | | | LABORATORY | | + + + + + + | Estimated | >60Comment: For | >60 mL/min/A | [facility] | | | GFR | -Americans, | | [facility] | | | | please multiply the [...] + + + + | BUN/Creatin | 16.5 | 12 - 20 | [facility] | | | ine Ratio | | | [facility] | | | | | | [facility] | | | | | | CENTER - | | | | | | LABORATORY | | + + + + + + | Na | 138 | 136 - 149 mEq/L | [facility] | | | | | | [facility] | | | [facility] | | [facility] | | | | | | [facility] - | | | | | | LABORATORY | | + + + + + + | K | 3.3 (L) | 3.5 - 5.1 mEq/l | [facility] | | | [facility] | [facility] - | | | | | | LAB[facility]AT[facility] | | + + + + + + | Cl | 102 | 98 - 109 mEq/l | [facility] | | | | | | [facility] | | | | | | [facility] | | | | | | [facility] - | | | | | | LABORATORY | | + + + + + + | CO2 | 28 | 24 - 31 mEq/L | [facility] | | | | [facility] | [facility] | | | | | [facility] - | | | | | | LABORATORY | | + + + + + + | Anion Gap | 11.3 | 6.0 - 17.0 | [facility] | | | | | [...] [address] | [place] | [phone] | | [facility] | | [address] | | | - LABORATORY | | | | + + + + + | [facility] | [address] | [place] | | | [facility] | | [address] | | | - LABORATORY | | | | + + + + + Lipase (07/13/2010 12:43 PM PDT) + +-------+ + + + | Component | Value | Ref Range | Performed | Pathologist | | | | | At | Signature | + +-------+ + + + | Lipase | 33 | 0 - 60 U/L | [facility] | | | | | | [facility] [...] + | [facility] | [address] | [place] | [phone] | | [facility] | | [address] | | | - LABORATORY | | | | + + + + + | [facility] | [address] | [place], [place] | | | [facility] | | [address] | | | - LABORATORY | | | | + + + + + Amylase (07/13/2010 12:43 PM PDT) + +--------+ + + + | Component | Value | Ref Range | Performed | Pathologist | | | | | At | Signature | + +--------+ + + + | Amylase | 25 (L) | 27 - 100 U/L | [facility] | | | | | | [facility] | | | | | | [facility] | | | | | | CENTER - | | | | | | LABORATORY | | + +--------+ + + + + + | Specimen | + + | | + + + + + + + | Performing | Address | City/State/Zipcode | Phone Number | | Organization | | | | + + + + + | [facility] | [address] | [place] | [phone] | | [facility] | | [address] | | | - LABORATORY | | | | + + + + + | [facility] | [address] | [place] | | | [facility] | | [address] | | | - LABORATORY | | | | + + + + + documented in this encounter Visit Diagnoses Not on filedocumented in this encounter"
--- OUTSIDE RECORDS SUMMARY | ~2019-02-03 | XMS | Encounter Summary ---
Demographics + + + | Address | [address] | | | [place] [address] | + + + | Home Phone | | + + + | Preferred Language | Unknown | + + + | Marital Status | | + + + | [employer] Affiliation | 1041 | + + + | Race | Unknown | + + + | Ethnic Group | Unknown | + + + Author + + + | Author | [facility] | | | and [place] | + + + | Organization | [facility] | | | [...] Providers + +------+ + | Care Sales Merchandising Specialist Name | Role | Phone | + +------+ + | Pepper Kamara | PCP | | + +------+ + Encounter Details +--------+ + + + + | Date | Type | Department | Care Team | Description | +--------+ + + + + | 03/01/ | Hospital | [facility] | Trixie, | | | 2009 | Encounter | MED CTR EMERGENCY | Sukhjinder Magana MD [address] | | | | CENTER [address] | [facility] | | | | | [place] | [place] [address] | | | | | [address] | [phone] | | | | | [phone] | | | +--------+ + + + [...]
--- OUTSIDE RECORDS SUMMARY | ~2019-02-03 | XMS | Encounter Summary ---
Demographics + + + | Address | [address] | | | [place] [address] | + + + | Home Phone [...] Providers + +------+ + | Care Sales Ledger Administrator Name | Role | Phone | + +------+ + | Scot Anton MD | PCP | | + +------+ + Reason for Visit + + + | Reason | Comments | + + + | Appointment | Patient rescheduled for the second time to 03/16/17 | + + + Encounter Details +--------+ + + + + | Date | Type | Department | Care Team | Description | +--------+ + + + + | 02/28/ | Telephone | [facility] | Dick Medina MD | Appointment (Patient | | 2017 | | GASTROENTEROLOGY | [address], [place] | rescheduled for the | | | | [address] [place] | [address] [place] | second time to | | | | [address] [place], [place] | [address] | 03/16/17) | | | | [address] | | | | | | [phone] | | | +--------+ + + + [...]
--- OUTSIDE RECORDS SUMMARY | ~2019-02-03 | XMS | Encounter Summary ---
Demographics + + + | Address | [address] | | | [place] [address] | + + + | Home Phone [...] Team Providers + +------+ + | Care Cotton Presser Name | Role | Phone | + +------+ + | No, Physician | PCP | Unavailable | + +------+ + Encounter Details +--------+ + + + + | Date | Type | Department | Care Team | Description | +--------+ + + + + | 10/28/ | Emergency | [facility] | No, Physician | Procedure and | | 2017 | | [facility] | | treatment not | | | | [address] | | carried out because | | | | [place] | | of patient's | | | | [address] | | decision for other | | | | [phone] | | reasons (Primary Dx) | +--------+ + + + + Social [...] + | Diagnosis | + + | Procedure and treatment not carried out because of patient's decision for other | | reasons - Primary | + + documented in this encounter"
--- OUTSIDE RECORDS SUMMARY | ~2019-02-03 | XMS | Encounter Summary ---
Demographics + + + | Address | [address] | | | [place] [address] | + + + | Home Phone | | + + + | Preferred Language | Unknown | + + + | Marital Status | | + + + | Confucianism Affiliation | 1041 | + + + [...] Providers + +------+ + | Care Manager Water Wastewater Name | Role | Phone | + [...] Refill | | 2018 | | [facility] | [address] | | | | | [address] | [place] | | | | | [place] | [address] | | | | | [address] | | | | | | [phone] | | | +--------+--------+ + + + [...]
--- OUTSIDE RECORDS SUMMARY | ~2019-02-03 | XMS | Encounter Summary ---
Demographics + + + | Address | [address] | | | [place] [address] | + + + | Home Phone [...] Team Providers + +------+ + | Care Electrical Tech Name | Role | Phone | + +------+ + | Scot Anton MD | PCP | | + +------+ + Reason for Visit + + + | Reason | Comments | + + + | Medication Prior | Diclofenac Gel 1% | | Authorization | | + + + Encounter Details +--------+ + + + + | Date | Type | Department | Care Team | Description | +--------+ + + + + | 03/18/ | Telephone | [facility] | Scot Anton, | Medication Prior | | 2018 | | [facility] [place] | [address] | Authorization | | | | [address] | [place] | (Diclofenac Gel 1%) | | | | [place] | [address] | | | | | [address] | | | | | | [phone] | | | +--------+ + + + [...]
--- OUTSIDE RECORDS SUMMARY | ~2019-02-03 | XMS | Encounter Summary ---
Demographics + + + | Address | [address] | | | [place] [address] | + + + | Home Phone [...] + | Author | [facility] | | | and [place]irana | + + + | Organization | [facility] | | | and [...] Team Providers + +------+ + | Care Dentofacial Orthopedics Dentist Name | Role | Phone | [...] Incontinence | | 2018 | | [facility] [place] | [address] | Supplies | | | | [address] | [place] | | | | | [place] | [address] | | | | | [address] | | | | | | [phone] | | | +--------+ + + + [...]
--- OUTSIDE RECORDS SUMMARY | ~2019-02-03 | XMS | Encounter Summary ---
Demographics + + + | Address | [address] | | | [place] [address] | + + + | Home Phone [...] Team Providers + +------+ + | Care Captain Fire Prevention Bureau Name | Role | Phone | + +------+ + PCP | Unavailable | + +------+ + Encounter Details +--------+ + + + + | Date | Type | Department | Care Team | Description | +--------+ + + + + | 07/09/ | Hospital | [facility] | | | | 2008 | Encounter | MED CTR EMERGENCY | | | | | | CENTER [address] | | | | | | [place] | | | | | | [address] | | | | | | [phone] | | | +--------+ + + + [...]
--- OUTSIDE RECORDS SUMMARY | ~2019-02-03 | XMS | Encounter Summary ---
Demographics + + + | Address | [address] | | | [place] [address] | + + + | Home Phone [...] Team Providers + +------+ + | Care Calender Wind Up Tender Name | Role | Phone | [...] RN | | | | | [place] | | | | | | [address] | | | | | | [phone] | | | +--------+ + + + [...]
--- OUTSIDE RECORDS SUMMARY | ~2019-02-03 | XMS | Encounter Summary ---
Demographics + + + | Address | [address] | | | [place] [address] | + + + | Home Phone | | + + + | Preferred Language | Unknown | + + + | Marital Status | | + + + | Evangelical Affiliation | [id number] | + + + | Race | Unknown | + + + | Ethnic Group | Unknown | + + + Author + + + | Author | [facility] | | | and Samirana | + + + | Organization | [facility] | | | [...] Team Providers + +------+ + | Care Binding Nicker Name | Role | Phone | + [...] | | | | | | Shortness | | | | | | | of breath | | | | | | | Acute | | | | | | | exacerbation | | | | | | | of chronic | | | | | | | obstructive | | | | | | | pulmonary | | | | | | | disease | | | | | | | (COPD) (HCC) | | | | | | | Hypoxia | | | | | | | Acute | | | | | | | bronchospasm | | | | | | | Dependence | | | | | | | on | | | | | | | continuous | | | | | | | supplemental | | | | | | | oxygen | | | | | | | | | | +--------+--------+ + + + + Encounter Details +--------+ + + + + | Date | Type | Department | Care Team | Description | +--------+ + + + + | 09/20/ | Hospital | [facility] | Tong Ford, | Acute exacerbation | | 2019 - | Encounter | [facility] | MD [place] [address] | of chronic | | | | [address] [place] | SUSAN TORRES | obstructive | | 09/23/ | | [place] [address] | [id number] [address], | pulmonary disease | | 2019 | | [phone] | MD Tyler [address] | (COPD) (HCC) | | | | | [address] [place] | (Primary Dx); | | | | | [place] [address] | Shortness of breath; | | | | | [phone] | Acute bronchospasm; | | | | | | Dependence on | | | | | | continuous | | | | | | supplemental oxygen; | | | | | | Hypoxia; Acute on | | | | | | chronic respiratory | | | | | | failure with hypoxia | | | | | | (HCC); Tobacco | | | | | | abuse; COPD | | | | | | exacerbation (HCC) | +--------+ + + + + [...] + + + | Blood Pressure | 121/73 | 09/23/2018 7:31 AM | | | | | PDT | | + + + + + | Pulse | 73 | 09/23/2018 11:03 AM | | | | | PDT | | + + + + + | Temperature | 35.8 C (96.4 F) | 09/23/2018 7:31 AM | | | | | PDT | | + + + + + | Respiratory Rate | 16 | 09/23/2018 11:03 AM | | | | | PDT | | + + + + + | Oxygen Saturation | 93% | 09/23/2018 11:03 AM | | | | | PDT | | + + + + + | Inhaled Oxygen | - | - | | | Concentration | | | | + + + + + | Weight | 66 kg (145 lb 8.1 | 09/20/2018 9:54 PM | | | | oz) | PDT | | + + + + + | Height | 157.5 cm (5' 2") | 09/20/2018 9:54 PM | | | | | PDT | | + + + + + | Body Mass Index | 26.61 | 09/20/2018 9:54 PM | | | [...] + documented as of this encounter Discharge Summaries Thang Ibarra MD - 09/23/2018 11:43 AM PDTFormatting of this note might be different f rom the original. DISCHARGE SUMMARY Patient Name: Pepper Hand : 1960 Date of Admission: 09/20/2018 Date of Discharge: 09/23/18 Admitting Physician: Tyler Blackwell MD Discharging Physician: Thang Ibarra MD Primary Care Provider: Scot Anton MD Discharge Diagnoses: Active Problems: Tobacco abuse Acute on chronic respiratory failure with hypoxia Meningiomas, multiple GERD Essential hypertension COPD exacerbation Resolved Problems: * No resolved hospital problems. * Patient Active Problem List Diagnosis Asthma Allergic rhinitis GERD Hypertension Irritable bowel syndrome Obesity Hyperlipidemia EPISTAXIS, RECURRENT Hemorrhoids, external Overactive bladder Tobacco abuse Vitamin D deficiency History of colon polyps COPD (chronic obstructive pulmonary disease) Depressive disorder, not elsewhere classified Essential hypertension Dill's esophagus Anxiety Cerebral microvascular disease Acute on chronic respiratory failure with hypoxia Meningiomas, multiple COPD exacerbation Consultants: None Procedures: 09/20 CXR: FINDINGS: Portable frontal chest radiograph Lungs: No focal airspace disease, pleural effusion, or pneumothorax. Mild hyperexpansion. Heart/mediastinum: Cardiac silhouette is of normal size. Central pulmonary vasculature has a normal appearance. Bones: No acute osseous abnormality appreciated. IMPRESSION - No acute disease. No results found. Recent Results (from the past 48 hour(s)) Respiratory pathogen panel, NAAT Result Value Ref Range Influenza A PCR Not Detected Not Detected Influenza A H1 Not Detected Not Detected Influenza A H3 Not Detected Not Detected Influenza B PCR Not Detected Not Detected Parainfluenza 1 Not Detected Not Detected Parainfluenza 2 Not Detected Not Detected Parainfluenza 3 Not Detected Not Detected Parainfluenza 4 Not Detected Not Detected RSV A Not Detected Not Detected RSV B Not Detected Not Detected Adenovirus Not Detected Not Detected Human Metapneumovirus Not Detected Not Detected Rhinovirus/Enterovirus Not Detected Not Detected Bordetella Pertussis PCR Not Detected Not Detected Bordetella holmesii Not Detected Not Detected Bordetella parapertussis/bronchiseptica NAAT Not Detected Not Detected Reason for Admission: Please refer to the H&P for full details. In short, this is a 58 y.o. female with a histor y of severe COPD, active smoking, who presented with COPD exacerbation. Problem-Oriented Hospital Course: COPD exacerbation/acuteon chronic respiratory failure -Severe COPD at baseline, pulmonary function test not available -Uses oxygen only situationally at home -Presented with 3 or 4 days of increasing cough, shortness of breath, and green sputum -Oxygen dropped to 82% in the emergency room with increased work of breathing -ABGshowed normal CO2 - Admitted on oxygen, scheduled Duonebs -Resp status improving, switch from Solumedrol to prednisone -Flutter valve -Azithromycin given x 3 days and then stopped -Scheduled Flonase and loratadine - Overnight pulse ox showed oxygen was below 90% 28% of the time. Encouraged her to wear 2 liters of oxygen at night - 2 L oxygen with exertion, she has oxygen at home - Discharged with nebs, 2 more days of prednisone, loratadine daily, pulmonary rehab consul t Depression -Cont escitalopram - Reports stable mood, no acute problems HTN essential -Discharge with home atenolol Tobacco Dependence -Nicotine patch, strongly encourage cessation Meningioma -Surveillance imaging through PCP Code Status: Full Code Disposition: Home Discharge Condition: Stable Lungs stably diminished throughout, no wheezing or respiratory distress Heart RRR Abd soft, NT Ext WWP Follow-up Information [facility]. Specialty: Emergency Medicine Why: As needed Contact information: [address] [place] [address] Scot Anton MD On 09/30/2018. Specialty: Family Medicine Why: This is your hospital follow up appointment, scheduled for 11:30, Please check in at 11:15. Contact information: [address] [place] [address] Discharge Medications New Medications Details albuterol-ipratropium 2.5-0.5 mg/3 mL Soln Inhale 1 treatment in nebulizer every 4 hours daily budesonide 0.5 mg/2 mL nebulizer solution Take 2 mLs by nebulization Daily for 30 days. aka: PULMICORT Nebulizer Gilda Use 4 times a day with nebulized solution-patient has long-term emphysema and COPD and anju l need device lifelong. predniSONE 20 mg tablet Take 2 tablets by mouth Daily for 2 days. aka: DELTASONE Start: 09/24/2018 Unchanged Medications Details aspirin 81 MG tablet Take 1 tablet by mouth Daily. atenolol 25 mg tablet Take 1 tablet by mouth Daily. aka: TENORMIN escitalopram 20 mg tablet Take 1 tablet by mouth Daily. To help mood and anxiety aka: LEXAPRO nicotine 21 mg/[address] 1 patch onto the skin Daily. aka: NICODERM omeprazole 20 mg capsule Take 20 mg by mouth Daily as needed for Heartburn. aka: priLOSEC tiotropium 18 mcg inhalation capsule inhale contents of 1 capsule by mouth once daily aka: SPIRIVA HANDIHALER VENTOLIN HFA 90 mcg/puff inhaler Generic drug: albuterol Inhale 2 puffs into the lungs every 4 hours as needed for Wheezing. Studies With Pending Results: None Less than 30 minutes were spent on discharge and coordination of post-hospital care. Electronically signed by: Thang Ibarra MD, 09/23/2018 11:43 [facility] documented in this encounter Discharge Instructions Instructions Thang Ibarra MD - 09/23/2018You were admitted with worsening of your chr onic COPD. You need to wear 2 liters of oxygen with walking, and 2 liters of oxygen all nig ht. Please take the medicines by nebulizer prescribed by the ER doctor, and take 2 more day s of prednisone. Please use the nicotine patch to help you quit smoking. A pulmonary rehab consult has been placed. documented in this encounter Medications at Time [...] + + +---------+ + + | albuterol | Inhale 2 puffs into | | 0 | | | | (VENTOLIN HFA) 90 | the lungs every 4 | | | | 9 | | mcg/puff inhaler | hours as needed for | | | | | | | Wheezing. | | | | | + + + +---------+ + + | | Inhale 1 treatment | 90 mL | 0 | 09/24/19 | | | albuterol-ipratropiu | in nebulizer every 4 | | | 19 | 9 | | m 2.5-0.5 mg/3 mL | hours daily | | | | | | SOLN | | | | | | + + + +---------+ + + | atenolol | Take 1 tablet by | 30 | 5 | 06/29/19 | | | (TENORMIN) 25 mg | mouth Daily. | tablet | | 19 | 9 | | tabletIndications: | | | | | | | Essential | | | | | | | hypertension | | | | | | + + + +---------+ + + | budesonide | Take 2 mLs by | 60 mL | 0 | 09/24/19 | | | (PULMICORT) 0.5 mg/2 | nebulization Daily | | | 19 | 9 | | mL nebulizer | for 30 days. | | | | | | solution | | | | | | + + + +---------+ + + | escitalopram | Take 1 tablet by | 30 | 5 | 06/29/19 | | | (LEXAPRO) 20 mg | [...] predniSONE | Take 2 tablets by | 4 | 0 | 09/25/19 | | | (DELTASONE) 20 mg | mouth Daily for 2 | tablet | | 19 | 9 | | tablet | days. | | | | | + + + +---------+ + + | Respiratory | Use 4 times a day | 1 each | 0 | 09/24/19 | | | Therapy Supplies | with nebulized | | | 19 | 9 | | (NEBULIZER) GILDA | solution-patient has | | | | | | | long-term emphysema | | | | | | | and COPD and will | | | | | | | need device | | | | | | | lifelong. | | | | | + + + +---------+ + + | tiotropium | inhale contents of 1 | 30 | 5 | 05/05/19 | | | (SPIRIVA HANDIHALER) | capsule [...] | | | | | | type ([facility]) | | | | | | + + + +---------+ + + documented as of this encounter Progress Notes Tomas Parks RRT - 09/23/2018 10:03 AM PDT Home O2 Evaluation 09/23/18 0951 Oxygen Therapy Home O2 eval performed? yes Resting on RA (%) 93 (Resting RA) Exercising on RA (%) 85 (Walking on RA) Resting on O2 (%)(add L/Min in comment) (Walking on 2LPM NC) Exercising on O2 (%)(add L/Min in comment) 91 (Walking on 2LPM NC) Thang Shelby MD - 09/22/2018 2:[address] [facility] Hospitalist Progress Note Pepper Hand is a 58 y.o. female ASSESSMENT and PLAN: Active Hospital Problems Diagnosis Meningiomas, multiple Acute on chronic respiratory failure with hypoxia Tobacco abuse COPD exacerbation Essential hypertension GERD Resolved Hospital Problems No resolved problems to display. COPD exacerbation/acute on chronic respiratory failure -Severe COPD at baseline, pulmonary function test not available -Uses oxygen only situationally at home -Presented with 3 or 4 days of increasing cough, shortness of breath, and green sputum -Oxygen dropped to 82% in the emergency room with increased work of breathing -ABG showed normal CO2 - Admitted on oxygen, scheduled Duonebs -Resp status improving, switch from Solumedrol to prednisone -Flutter valve -Azithromycin x 3 days -Scheduled Flonase and loratadine - Wakes up short of breath with coughing at times, check overnight pulse ox to see if she n eeds to wear oxygen at night Depression -Cont escitalopram - Reports stable mood, no acute problems HTN essential -BP was in the 90's, held atenolol - Back up to the 140's, restart atenolol Tobacco Dependence -Nicotine patch, strongly encourage cessation Meningioma -Surveillance imaging through PCP Disposition : Working with therapy and CM Prophylaxis : enoxaparin SUBJECTIVE: Breathing improved, still having cough, not much sputum production. No chest pain. No n ausea/vomiting, eating well. VITALS: Temp: 37.2 C (99 F), Pulse: 90, Resp: 22, BP: 141/73, SpO2 94 % on room air Temp Min: 36.4 C (97.6 F) Max: 37.2 C (99 F) Weight: 66 kg (145 lb 8.1 oz) Intake/Output Summary (Last 24 hours) at 09/22/2018 1456 Last data filed at 09/22/2018 1300 Gross per 24 hour Intake 1805 ml Output 1700 ml Net 105 ml PHYSICAL EXAM: General: Alert, appropriate, no distress Cardiovascular: RRR Respiratory: Stably diminished throughout, occasional dry cough, no respiratory distress Abdomen: Soft, NT Extremities: WWP Carrillo catheter present: No DIAGNOSTIC STUDIES: Available data and images were reviewed personally. Significant results and findings are a ddressed here or in the Assessment and Plan. No results found for this or any previous visit (from the past 24 hour(s)). Xr Chest Ap Portable Result Date: 09/20/2018 CLINICAL INFORMATION: SHORTNESS OF BREATH. COMPARISON: 04/17/2018. FINDINGS: Portable fronta l chest radiograph Lungs: No focal airspace disease, pleural effusion, or pneumothorax. Mil d hyperexpansion. Heart/mediastinum: Cardiac silhouette is of normal size. Central pulmonary vasculature has a normal appearance. Bones: No acute osseous abnormality appreciated. IMPRE SSION - No acute disease. Dictated and Signed by: Wilbert Phillips MD Electronically signed: 09/20/2018 6:40 PM Current Facility-Administered Medications: acetaminophen 650 mg Oral Q4H PRN albuterol 2.5 mg Nebulization RT Q4H PRN albuterol-ipratropium 3 mL Nebulization RT Q4H aluminum & magnesium hydroxide-simethicone 30 mL Oral Q4H PRN aspirin 81 mg Oral Daily atenolol 25 mg Oral Daily azithromycin 500 mg Intravenous Q24H docusate sodium 100 mg Oral BID PRN enoxaparin 40 mg Subcutaneous Daily escitalopram 20 mg Oral Daily fluticasone 2 spray Each Nare Daily loratadine 10 mg Oral Daily LORazepam 0.5-1 mg Oral Q6H PRN nicotine 1 patch Transdermal Daily ondansetron 4 mg Intravenous Q6H PRN pantoprazole 40 mg Oral QAM AC polyethylene glycol 17 g Oral Daily PRN [START ON 09/23/2018] predniSONE 40 mg Oral Daily Total time of approximately 25 minutes was spent with the patient and/or patient's family, and/or on the patient's floor/unit, of which more than 50% was spent counseling and/or coord ination the patient's care as outlined above. Thang Ibarra 09/22/2018 14:56 [facility] olph, Luis Guerrero [facility] - 09/22/2018 2:32 PM PDT PHARMACY SERVICES: ADMISSION MEDICATION REVIEW Pepper Hand is a 58 y.o. female admitted on 09/20/2018. Patient is reliable historian. Location of Patient when reviewed: ED X Medical Floor Patient s prior to admit medication and over the counter (OTC) medications/herbal supplem ents list obtained from: X Verbal interview X Patient ABLE to recall name, strength, and directions X [employer] insurance reported information X Outside Information Vaccines up to date? Yes No Unsure Influenza x Pneumococcal x Tdap x Shingles x Noted medications discrepancies or medication-related issues: Allergy Alerts: Allergy Added: Reaction: Medication(s) affected: Atorvastatin Muscle pain and swelling Dosage change: Medication: Prior to Admission Sig: Correct sig: Omeprazole 20 mg cap 1 cap by mouth as needed 1 cap by mouth daily as needed for heartburn Recreational Substances, Tobacco & Alcohol use : Drug: Route Frequency: Last Used: Tobacco Smoke 0.5 pack daily ~4 days ago Alcohol ~1 drink three times a year Unknown Marijuana ~once a year Unknown Other: Cephalexin 500 mg cap- 1 cap by mouth four times daily for 7 days Ordered for patient on 09/11/18 #28 caps Patient did not start therapy as provider told her not to start if infection cleared up. Mupirocin 2% oint- apply to affected area three times daily for 3 to 5 days Patient applying to spot under right arm. 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 Provider albuterol (VENTOLIN HFA) 90 mcg/puff inhaler Inhale 2 puffs into the lungs every 4 hours a s needed for Wheezing. Taking Historical ProviderMD albuterol-ipratropium 2.5-0.5 mg/3 mL SOLN Inhale 1 treatment in nebulizer every 4 hours d aily 90 mL Tong Ford MD aspirin 81 MG tablet Take 1 tablet by mouth Daily. Taking 30 tablet Thang Ibarra MD atenolol (TENORMIN) 25 mg tablet Take 1 tablet by mouth Daily. Taking 30 tablet Scot esparza MD budesonide (PULMICORT) 0.5 mg/2 mL nebulizer solution Take 2 mLs by nebulization Daily for 30 days. 60 mL Tong Ford MD doxycycline (VIBRAMYCIN) 100 mg tablet Take 1 tablet by mouth 2 times daily for 14 days. 28 tablet Tong Ford MD escitalopram (LEXAPRO) 20 mg tablet Take 1 tablet by mouth Daily. To help mood and anxiety Taking 30 tablet Scot Anton MD nicotine (NICODERM) 21 mg/[address] 1 patch onto the skin Daily. Patient not taking: Re ported on 09/22/2018 Not Taking 28 patch Thang Ibarra MD omeprazole (PRILOSEC) 20 mg capsule Take 20 mg by mouth Daily as needed for Heartburn. Huber ing Historical Provider, Respiratory Therapy Supplies (NEBULIZER) GILDA Use 4 times a day with nebulized solution-devonte morales has long-term emphysema and COPD and will need device lifelong. 1 each Tong shahid MD tiotropium (SPIRIVA HANDIHALER) 18 mcg inhalation capsule inhale contents of 1 capsule by mouth once daily Taking 30 capsule Scot Anton MD Medication review performed and electronically signed by Sloane Gaspar, Pomologist 14:08 Electronically signed by: Luis Benoit RPH 09/22/2018 14:32 Thang Shelby MD - 09/21/2018 10:[address] [facility] Hospitalist Progress Note Pepper Hand is a 58 y.o. female ASSESSMENT and PLAN: Active Hospital Problems Diagnosis Meningiomas, multiple Acute on chronic respiratory failure with hypoxia Tobacco abuse COPD exacerbation Essential hypertension GERD Resolved Hospital Problems No resolved problems to display. COPD exacerbation/acute on chronic respiratory failure -Severe COPD at baseline, pulmonary function test not available -Uses oxygen situationally at home, usually does not use it -Presented with 3 or 4 days of increasing cough, shortness of breath, and green sputum -Oxygen dropped to 82% in the emergency room with increased work of breathing - Admitted on oxygen, scheduled Duonebs -Solumedrol 40 mg every 12 -RT eval and treat -ABG showed normal CO2 -Flutter valve -Azithromycin x 3 days -Scheduled Flonase and loratadine Depression -Cont escitalopram - Reports stable mood, no acute problems HTN essential -BP in the 90's, hold atenolol Tobacco Dependence -Nicotine patch, strongly encourage cessation Meningioma -Being followed with PCP with surveillance imaging Disposition : Home when stable Prophylaxis : enoxaparin SUBJECTIVE: Has had increasing cough, shortness of breath, and green sputum production over the last 3 days. Feels slightly better than yesterday, less lightheaded, continues to be short of estelle th with activity and has a cough productive of sputum. She denies any sick contacts, althou does report that everyone in her house smokes. She is also concerned that there may be m ildew in her house. VITALS: Temp: 36.3 C (97.3 F), Pulse: 99, Resp: 20, BP: 98/63, SpO2 99 % on nasal cannula Temp Min: 36.3 C (97.3 F) Max: 36.5 C (97.7 F) Weight: 66 kg (145 lb 8.1 oz) Intake/Output Summary (Last 24 hours) at 09/21/2018 1019 Last data filed at 09/21/2018 0951 Gross per 24 hour Intake 2050 ml Output Net 0 ml PHYSICAL EXAM: General: Pleasant, alert, sitting comfortably in bed Cardiovascular: Regular rate and rhythm, no murmurs rubs or gallops Respiratory: Decent although diminished air movement throughout, occasional cough, no respi ratory distress Abdomen: Soft, nontender Extremities: Warm and well-perfused without significant edema Carrillo catheter present: No DIAGNOSTIC STUDIES: Available data and images were reviewed personally. Significant results and findings are a ddressed here or in the Assessment and Plan. Recent Results (from the past 24 hour(s)) ECG 12 lead Result Value Ref Range VENTRICULAR RATE EKG 78 BPM ATRIAL RATE 78 BPM P-R INTERVAL 172 ms QRS DURATION 86 ms Q-T INTERVAL 388 ms Q-T INTERVAL (CORRECTED) 442 ms P WAVE AXIS 96 degrees QRS AXIS 86 degrees T AXIS 80 degrees INTERPRETATION TEXT Normal sinus rhythm RSR' pattern in V1-2 suggests right ventricular conduction delay When compared with ECG of 23-DEC-2015 15:23, Previous ECG has undetermined rhythm, needs review T wave inversion now evident in Anterior leads :cannot exclude ischemia Confirmed by LAYO REYNOLDS, PITO ([id number]) on 09/21/2018 6:21:29 AM CBC w/ Auto Differential Result Value Ref Range WBC 10.9 4.0 - 11.0 K/uL RBC 5.61 (H) 3.70 - 5.20 M/uL Hemoglobin 17.0 (H) 11.5 - 16.0 g/dL Hematocrit 50.1 (H) 34.0 - 47.0 % MCV 89.3 83.0 - 101.0 fL MCH 30.3 28.0 - 35.0 pg MCHC 33.9 32.0 - 36.0 g/dL RDW-CV 12.7 <15.0 % RDW-SD 41.8 35.1 - 46.3 fL Platelet Count 290 140 - 440 K/uL MPV 10.3 6.5 - 12.4 fL % Neutrophils 49.8 45.0 - 82.0 % % Lymphocytes 31.9 20.0 - 45.0 % % Monocytes 6.4 4.0 - 12.0 % % Eosinophils 9.8 (H) 0.0 - 5.0 % % Basophils 1.8 (H) 0.0 - 1.0 % % Immature Granulocytes 0.3 0.0 - 0.4 % Absolute Neutrophils 5.43 1.80 - 8.50 K/uL Absolute Lymphocytes 3.48 (H) 0.60 - 3.20 K/uL Absolute Monocytes 0.70 0.00 - 1.00 K/uL Absolute Eosinophils 1.07 (H) 0.00 - 0.40 K/uL Absolute Basophils 0.20 (H) 0.00 - 0.10 K/uL Absolute Immature Granulocytes 0.03 0.00 - 0.03 K/uL % nRBC 0 0 - 2 per 100 WBCs Absolute nRBC 0.00 0.00 - 0.01 K/uL Comprehensive Metabolic Panel Result Value Ref Range Na 140 136 - 145 mmol/L K 3.9 3.4 - 5.1 mmol/L Cl 107 98 - 107 mmol/L CO2 26 20 - 31 mmol/L Anion Gap 7 3 - 16 mmol/L Glucose 102 60 - 106 mg/dL BUN 9 9 - 23 mg/dL Creatinine 0.84 0.55 - 1.02 mg/dL eGFR if not >60 >=60 mL/min/1.73m2 Ca 9.7 8.7 - 10.4 mg/dL Albumin 4.7 3.2 - 4.8 g/dL Bilirubin Total 0.7 0.3 - 1.2 mg/dL Total Protein 6.8 5.7 - 8.2 g/dL AST 18 0 - 34 U/L ALT 14 10 - 49 U/L Alkaline Phosphatase 81 46 - 116 U/L Globulin 2.1 2.1 - 3.8 g/dL Albumin/Globulin Ratio 2.2 (H) 0.8 - 1.9 BUN/Creatinine Ratio 10.7 Troponin I Result Value Ref Range Troponin I <0.01 <0.06 ng/mL Extra Blue Top Tube Result Value Ref Range Extra Blue Top Tube Done Lactic Acid Result Value Ref Range Lactate 1.0 0.5 - 2.2 mmol/L POC Blood Gases Result Value Ref Range Specimen Source Artery pH, POC 7.393 7.3 - 7.45 HCO3, POC 24.5 21.0 - 28.0 mmol/L TCO2, POC 25.7 22.0 - 29.0 mmol/L Base Excess, POC -0.4 -2.0 - 3.0 mmol/L Base Excess, Extracellular fluid, POC -0.4 -2.0 - 3.0 mmol/L O2 Sat, POC 92 90 - 100 % PCO2, POC 40.2 35 - 45 mmHg pO2, POC 63 60 - 750 mmHg CBC with Differential Result Value Ref Range WBC 11.4 (H) 4.0 - 11.0 K/uL RBC 4.81 3.70 - 5.20 M/uL Hemoglobin 14.5 11.5 - 16.0 g/dL Hematocrit 43.9 34.0 - 47.0 % MCV 91.3 83.0 - 101.0 fL MCH 30.1 28.0 - 35.0 pg MCHC 33.0 32.0 - 36.0 g/dL RDW-CV 12.8 <15.0 % RDW-SD 42.4 35.1 - 46.3 fL Platelet Count 242 140 - 440 K/uL MPV 10.8 6.5 - 12.4 fL % Neutrophils 87.1 (H) 45.0 - 82.0 % % Lymphocytes 10.3 (L) 20.0 - 45.0 % % Monocytes 1.3 (L) 4.0 - 12.0 % % Eosinophils 0.0 0.0 - 5.0 % % Basophils 0.4 0.0 - 1.0 % % Immature Granulocytes 0.9 (H) 0.0 - 0.4 % Absolute Neutrophils 9.90 (H) 1.80 - 8.50 K/uL Absolute Lymphocytes 1.17 0.60 - 3.20 K/uL Absolute Monocytes 0.15 0.00 - 1.00 K/uL Absolute Eosinophils 0.00 0.00 - 0.40 K/uL Absolute Basophils 0.04 0.00 - 0.10 K/uL Absolute Immature Granulocytes 0.10 (H) 0.00 - 0.03 K/uL % nRBC 0 0 - 2 per 100 WBCs Absolute nRBC 0.00 0.00 - 0.01 K/uL Basic Metabolic Panel Result Value Ref Range Na 139 136 - 145 mmol/L K 3.5 3.4 - 5.1 mmol/L Cl 105 98 - 107 mmol/L CO2 23 20 - 31 mmol/L Anion Gap 11 3 - 16 mmol/L Glucose 139 (H) 60 - 106 mg/dL BUN 16 9 - 23 mg/dL Creatinine 0.97 0.55 - 1.02 mg/dL eGFR if not 59 (L) >=60 mL/min/1.73m2 Ca 9.5 8.7 - 10.4 mg/dL BUN/Creatinine Ratio 16.5 Magnesium Result Value Ref Range Magnesium 2.0 1.6 - 2.6 mg/dL Xr Chest Ap Portable Result Date: 09/20/2018 CLINICAL INFORMATION: SHORTNESS OF BREATH. COMPARISON: 04/17/2018. FINDINGS: Portable fronta l chest radiograph Lungs: No focal airspace disease, pleural effusion, or pneumothorax. Mil d hyperexpansion. Heart/mediastinum: Cardiac silhouette is of normal size. Central pulmonary vasculature has a normal appearance. Bones: No acute osseous abnormality appreciated. IMPRE SSION - No acute disease. Dictated and Signed by: Wilbert Phillips MD Electronically signed: 09/20/2018 6:40 PM Current Facility-Administered Medications: acetaminophen 650 mg Oral Q4H PRN albuterol 2.5 mg Nebulization RT Q4H PRN albuterol-ipratropium 3 mL Nebulization RT Q4H aluminum & magnesium hydroxide-simethicone 30 mL Oral Q4H PRN aspirin 81 mg Oral Daily atenolol 25 mg Oral Daily azithromycin 500 mg Intravenous Q24H docusate sodium 100 mg Oral BID PRN enoxaparin 40 mg Subcutaneous Daily escitalopram 20 mg Oral Daily fluticasone 2 spray Each Nare Daily loratadine 10 mg Oral Daily LORazepam 0.5-1 mg Oral Q6H PRN methylPREDNISolone sodium succinate 40 mg Intravenous 4 times per day nicotine 1 patch Transdermal Daily ondansetron 4 mg Intravenous Q6H PRN pantoprazole 40 mg Oral QAM AC polyethylene glycol 17 g Oral Daily PRN Total time of approximately 25 minutes was spent with the patient and/or patient's family, and/or on the patient's floor/unit, of which more than 50% was spent counseling and/or coord ination the patient's care as outlined above. Thang Ibarra 09/21/2018 10:19 [facility] documented in this encounter Plan of Treatment + + +--------+ + + | Name | Type | Priori | Associated Diagnoses | Order Schedule | | | | ty | | | + + +--------+ + + | Pulmonary rehab | Card Rehab | Routin | Dependence on | 1 Occurrences | | evaluation | | e | continuous | starting 09/23/2018 | | | | | supplemental oxygen | until 09/24/2019 | | | | | Hypoxia Acute on | | | | | | chronic respiratory | | | | | | failure with hypoxia | | | | | | (HCC) COPD | | | | | | exacerbation (HCC) | | + + +--------+ + + documented as of this encounter Procedures + +--------+ + + + | Procedure Name | Priori | Date/Time | Associated Diagnosis | Comments | | | ty | | | | + +--------+ + + + | RESPIRATORY VIRUS | Routin | 09/23/2018 | | Results for this | | ANTIGENS PROFILE | e | 6:40 AM | | procedure are in the | | | | PDT | | results section. | + +--------+ + + + | RT PULSE OXIMETRY, | Routin | 09/22/2018 | | | | OVERNIGHT | e | 11:52 AM | | | | | | PDT | | | + +--------+ + + + | PERFORM HOME O2 | Routin | 09/22/2018 | | | | EVALUATION | e | 11:43 AM | | | | | | PDT | | | + +--------+ + + + | MAGNESIUM | Routin | 09/21/2018 | | Results for this | | | e | 4:23 AM | | procedure are in the | | | | PDT | | results section. | + +--------+ + + + | BASIC METABOLIC | Routin | 09/21/2018 | | Results for this | | PANEL | e | 4:23 AM | | procedure are in the | | | | PDT | | results section. | + +--------+ + + + | CBC WITH | Routin | 09/21/2018 | | Results for this | | DIFFERENTIAL | e | 4:22 AM | | procedure are in the | | | | PDT | | results section. | + +--------+ + + + | POC BLOOD GASES | Routin | 09/20/2018 | | Results for this | | | e | 8:44 PM | | procedure are in the | | | | PDT | | results section. | + +--------+ + + + | XR CHEST AP PORTABLE | STAT | 09/20/2018 | | Results for this | | | | 4:37 PM | | procedure are in the | | | | PDT | | results section. | + +--------+ + + + | CBC W/AUTO | STAT | 09/20/2018 | | Results for this | | DIFFERENTIAL | | 4:21 PM | | procedure are in the | | | | PDT | | results section. | + +--------+ + + + | EXTRA BLUE TOP TUBE | Routin | 09/20/2018 | | Results for this | | | e | 4:21 PM | | procedure are in the | | | | PDT | | results section. | + +--------+ + + + | TROPONIN I | STAT | 09/20/2018 | | Results for this | | | | 4:21 PM | | procedure are in the | | | | PDT | | results section. | + +--------+ + + + | LACTIC ACID | Routin | 09/20/2018 | | Results for this | | | e | 4:21 PM | | procedure are in the | | | | PDT | | results section. | + +--------+ + + + | COMPREHENSIVE | STAT | 09/20/2018 | | Results for this | | METABOLIC PANEL | | 4:21 PM | | procedure are in the | | | | PDT | | results section. | + +--------+ + + + | ECG 12 LEAD | STAT | 09/20/2018 | | Results for this | | | | 4:20 PM | | procedure are in the | | | | PDT | | results section. | + +--------+ + + + documented in this encounter Results Respiratory pathogen panel, NAAT (09/23/2018 6:40 AM PDT) + + + + + + | Component | Value | Ref Range | Performed | Pathologist | | | | | At | Signature | + + + + + + | Influenza A | Not Detected | Not Detected | [facility] | | | PCR | | | [facility] | | | | | | [facility] | | | | | | [facility] - | | | | | | LABORATORY | | + + + + + + | Influenza A | Not Detected | Not Detected | [facility] | | | H1 | | | [facility] | | | | | | [facility] | | | | | | [facility] - | | | | | | LABORATORY | | + + + + + + | Influenza A | Not Detected | Not Detected | [facility] | | | H3 | | | [facility] | | | | | | [facility] | | | | | | C[facility] - | | | | | | LABORATORY | | + + + + + + | Influenza B | Not Detected | Not Detected | [facility] | | | PCR | | | [facility] | | | | | | [facility] | | | | | | CENTER - | | | | | | LABORATORY | | + + + + + + | Parainfluen | Not Detected | Not Detected | [facility] | | | za 1 | | | [facility] | | | | | | [facility] | | | | | | CENTER - | | | | | | LABORATORY | | + + + + + + | Parainfluen | Not Detected | Not Detected | [facility] | | | za 2 | | | [facility] | | | | | | [facility] | | | | | | CENTER - | | | | | | LABORATORY | | + + + + + + | Parainfluen | Not Detected | Not Detected | [facility] | | | za 3 | | | [facility] | | | | | | [facility] | | | | | | CENTER - | | | | | | LABORATORY | | + + + + + + | Parainfluen | Not Detected | Not Detected | [facility] | | | za 4 | | | [facility] | | | | | | [facility] | | | | | | CENTER - | | | | | | LABORATORY | | + + + + + + | RSV A | Not Detected | Not Detected | [facility] | | | | | | [facility] | | | | | | [facility] | | | | | | C[facility] - | | | | | | LABORATORY | | + + + + + + | RSV B | Not Detected | Not Detected | [facility] | | | | | | [facility] | | | | | | [facility] | | | | | | CENTER - | | | | | | LABORATORY | | + + + + + + | Adenovirus | Not Detected | Not Detected | [facility] | | | | | | [facility] | | | | | | MEDICAL | | | | | | CENTER - | | | | | | LABORATORY | | + + + + + + | Human | Not Detected | Not Detected | [facility] | | | Metapneumov | | | [facility] | | | irus | | | MEDICAL | | | | | | CENTER - | | | | | | LABORATORY | | + + + + + + | Rhinovirus/ | Not Detected | Not Detected | [facility] | | | Enterovirus | | | [facility] | | | | | | MEDICAL | | | | | | CENTER - | | | | | | LABORATORY | | + + + + + + | Bordetella | Not Detected | Not Detected | [facility] | | | Pertussis | | | [facility] | | | PCR | | | MEDICAL | | | | | | CENTER - | | | | | | LABORATORY | | + + + + + + | Bordetella | Not Detected | Not Detected | [facility] | | | holmesii | | | [facility] | | | | | | MEDICAL | | | | | | CENTER - | | | | | | LABORATORY | | + + + + + + | Bordetella | Not Detected | Not Detected | [facility] | | | parapertuss | | | [facility] | | | is/bronchis | | | MEDICAL | | | eptica NAAT | | | CENTER - | | | | | | LABORATORY | | + + + + + + + + | Specimen | + + | Tissue - Entire | | nasopharynx (body | | structure) | + + + + + + + | Performing | Address | City/State/Zipcode | Phone Number | | Organization | | | | + + + + + | [facility] | [address] | [place] | [phone] | | [facility] | | [address] | | | - LABORATORY | | | | + + + + + Magnesium (09/21/2018 4:23 AM PDT) + +-------+ + + + | Component | Value | Ref Range | Performed | Pathologist | | | | | At | Signature | + +-------+ + + + | Magnesium | 2.0 | 1.6 - 2.6 mg/dL | [facility] | | | | [...] + | [facility] | [address] | [place] | [phone] | | [facility] | | [address] | | | - LABORATORY | | | | + + + + + Basic Metabolic Panel (09/21/2018 4:23 AM PDT) + + + + + + | Component | Value | Ref Range | Performed | Pathologist | | | | | At | Signature | + + + + + + | Na | 139 | 136 - 145 | [facility] | | | | | mmol/L | [facility] | | | | | | MEDICAL | | | | | | CENTER - | | | | | | LABORATORY | | + + + + + + | K | 3.5 | 3.4 - 5.1 | [facility] | | | | | mmol/L | [facility] | | | | | | MEDICAL | | | | | | CENTER - | | | | | | LABORATORY | | + + + + + + | Cl | 105 | 98 - 107 mmol/L | [facility] | | | | | | [facility] | | | | | | MEDICAL | | | | | | CENTER - | | | | | | LABORATORY | | + + + + + + | CO2 | 23 | 20 - 31 mmol/L | [facility] | | | | | | [facility] | | | | | | MEDICAL | | | | | | CENTER - | | | | | | LABORATORY | | + + + + + + | Anion Gap | 11 | 3 - 16 mmol/L | [facility] | | | | | | [facility] | | | | | | MEDICAL | | | | | | CENTER - | | | | | | LABORATORY | | + + + + + + | Glucose | 139 (H) | 60 - 106 mg/dL | [facility] | | | | | | [facility] | | | | | | MEDICAL | | | | | | CENTER - | | | | | | LABORATORY | | + + + + + + | BUN | 16 | 9 - 23 mg/dL | [facility] | | | | | | [facility] | | | | | | MEDICAL | | | | | | CENTER - | | | | | | LABORATORY | | + + + + + + | Creatinine | 0.97 | 0.55 - 1.02 | [facility] | | | | | mg/dL | [facility] | | | | | | MEDICAL | | | | | | CENTER - | | | | | | LABORATORY | | + + + + + + | eGFR if not | 59 (L)Comment: | >=60 | [facility] | | | | GLOMERULAR FILTRATION | mL/min/1.73m2 | [facility] | | | [facility] | RATE,ESTIMATED | | MEDICAL | | | | mL/min/[id number] than | | CENTER - | | [...] + + + + | Calcium | 9.5 | 8.7 - 10.4 | [facility] | | | | | mg/dL | [facility] | | | | | | MEDICAL | | | | | | CENTER - | | | | | | LABORATORY | | + + + + + + | BUN/Creatin | 16.5 | | [facility] | | | ine [...] ST. | [address] | [place], [place] | [phone] | | [facility] | | [address] | | | - LABORATORY | | | | + + + + + CBC with Differential (09/21/2018 4:22 AM PDT) + + + + + + | Component | Value | Ref Range | Performed | Pathologist | | | | | At | Signature | + + + + + + | WBC | 11.4 (H) | 4.0 - 11.0 K/uL | [facility] | | | | | | [facility] | | | | | | MEDICAL | | | | | | CENTER - | | | | | | LABORATORY | | + + + + + + | RBC | 4.81 | 3.70 - 5.20 | [facility] | | | | | M/uL | [facility] | | | | | | MEDICAL | | | | | | CENTER - | | | | | | LABORATORY | | + + + + + + | Hemoglobin | 14.5 | 11.5 - 16.0 | [facility] | | | | | g/dL | [facility] | | | | | | MEDICAL | | | | | | CENTER - | | | | | | LABORATORY | | + + + + + + | Hematocrit | 43.9 | 34.0 - 47.0 % | [facility] | | | | | | [facility] | | | | | | MEDICAL | | | | | | CENTER - | | | | | | LABORATORY | | + + + + + + | MCV | 91.3 | 83.0 - 101.0 fL | [facility] [...] + + + + | MCHC | 33.0 | 32.0 - 36.0 | [facility] | | | | | g/dL | [facility] | | | | | | MEDICAL | | | | | | CENTER - | | | | | | LABORATORY | | + + + + + + | RDW-CV | 12.8 | <15.0 % | [facility] | | | | | | [facility] | | | | | | MEDICAL | | | | | | CENTER - | | | | | | LABORATORY | | + + + + + + | RDW-SD | 42.4 | 35.1 - 46.3 fL | [facility] | | | | | | [facility] | | | | | | MEDICAL | | | | | | CENTER - | | | | | | LABORATORY | | + + + + + + | Platelet | 242 | 140 - 440 K/uL | [facility] | | | Count | | | [facility] | | | | | | MEDICAL | | | | | | CENTER - | | | | | | LABORATORY | | + + + + + + | MPV | 10.8 | 6.5 - 12.4 fL | [facility] | | | | | | [facility] | | | | | | MEDICAL | | | | | | CENTER - | | | | | | LABORATORY | | + + + + + + | % | 87.1 (H) | 45.0 - 82.0 % | [facility] | | | Neutrophils | | | [facility] | | | | | | MEDICAL | | | | | | CENTER - | | | | | | LABORATORY | | + + + + + + | % | 10.3 (L) | 20.0 - 45.0 % | [facility] | | | Lymphocytes | | | [facility] | | | | | | MEDICAL | | | | | | CENTER - | | | | | | LABORATORY | | + + + + + + | % Monocytes | 1.3 (L) | 4.0 - 12.0 % | [facility] [...] + + + | % Immature | 0.9 (H)Comment: | 0.0 - 0.4 % | [facility] | | | Granulocyte | Preliminary studies have | | [facility] | | | s | indicated the IG% | | MEDICAL | | | | and/or IG# show promise | | CENTER - | | | | as an early indicator | | LABORATORY | | | | for infection. | | | | + + + + + + | Absolute | 9.90 (H) | 1.80 - 8.50 | [facility] | | | Neutrophils | | K/uL | [facility] | | | | | | MEDICAL | | | | | | CENTER - | | | | | | LABORATORY | | + + + + + + | Absolute | 1.17 | 0.60 - 3.20 | [facility] | | | Lymphocytes | | K/uL | [facility] | | | | | | MEDICAL | | | | | | CENTER - | | | | | | LABORATORY | | + + + + + + | Absolute | 0.15 | 0.00 - 1.00 | [facility] | [...] | Absolute | 0.04 | 0.00 - 0.10 | [facility] | | | Basophils | | K/uL | [facility] | | | | | | MEDICAL | | | | | | CENTER - | | | | | | LABORATORY | | + + + + + + | Absolute | 0.10 (H) | 0.00 - 0.03 | [facility] [...] | | nRBC | | K/uL | [facility] | | | | [...] [address] | [place] | [phone] | | [facility] | | [address] | | | - LABORATORY | | | | + + + + + POC Blood Gases (09/20/2018 8:44 PM PDT) + +--------+ + + + | Component | Value | Ref Range | Performed | Pathologist | | | | | At | Signature | + +--------+ + + + | Specimen | Artery | | [facility] | | | Source | | | [facility] | | | | | | MEDICAL | | | | | | CENTER - | | | | | | LABORATORY | | + +--------+ + + + | pH, POC | 7.393 | 7.3 - 7.45 | [facility] | | | | | | [facility] | | | | | | MEDICAL | | | | | | CENTER - | | | | | | LABORATORY | | + +--------+ + + + | HCO3, POC | 24.5 | 21.0 - 28.0 | [facility] | | | | | mmol/L | [facility] | | | | | | MEDICAL | | | | | | CENTER - | | | | | | LABORATORY | | + +--------+ + + + | TCO2, POC | 25.7 | 22.0 - 29.0 | [facility] | | | | | mmol/L | [facility] | | | | | | MEDICAL | | | | | | CENTER - | | | | | | LABORATORY | | + +--------+ + + + | Base | -0.4 | -2.0 - 3.0 | [facility] | | | Excess, POC | | mmol/L | [facility] | | | | | | MEDICAL | | | | | | CENTER - | | | | | | LABORATORY | | + +--------+ + + + | Base | -0.4 | -2.0 - 3.0 | [facility] | | | Excess, | | mmol/L | [facility] | | | Extracellul | | | MEDICAL | | | ar fluid, | | | CENTER - | | | POC | | | LABORATORY | | + +--------+ + + + | O2 Sat, POC | 92 | 90 - 100 % | [facility] | | | | | | [facility] | | | | | | MEDICAL | | | | | | CENTER - | | | | | | LABORATORY | | + +--------+ + + + | PCO2, POC | 40.2 | 35 - 45 mmHg | [facility] | | | | | | [facility] | | | | | | [facility] | | | | | | CENTER - | | | | | | LABORATORY | | + +--------+ + + + | pO2, POC | 63 | 60 - 750 mmHg | [facility] | | | | | | [facility] | | [...] [address] | [place] | [phone] | | [facility] | | [address] | | | - LABORATORY | | | | + + + + + XR Chest AP Portable (09/20/2018 4:37 PM PDT) + + | Specimen | + + | | + + + + + | Narrative | Performed At | + + + | CLINICAL INFORMATION: SHORTNESS OF BREATH. COMPARISON: | [facility] | | 04/17/2018. FINDINGS: Portable frontal chest radiograph | | | Lungs: No focal airspace disease, pleural effusion, or pneumothorax. | | | Mild hyperexpansion. Heart/mediastinum: Cardiac silhouette is | | | of normal size. Central pulmonary vasculature has a normal | | | appearance. Bones: No acute osseous abnormality appreciated. | | | IMPRESSION - No acute disease. Dictated and Signed by: Wilbert | | | MD Alan Electronically signed: 09/20/2018 6:40 PM | | + + + + + | Procedure Note | + + | Jhoan, Rad Results In - 09/20/2018 6:43 PM PDT | | CLINICAL INFORMATION: SHORTNESS OF BREATH. | | | | COMPARISON: 04/17/2018. | | | | FINDINGS: | | Portable frontal chest radiograph | | | | Lungs: No focal airspace disease, pleural effusion, or pneumothorax. Mild | | hyperexpansion. | | | | Heart/mediastinum: Cardiac silhouette is of normal size. Central pulmonary | | vasculature has a normal appearance. | | | | Bones: No acute osseous abnormality appreciated. | | | | IMPRESSION - No acute disease. | | | | Dictated and Signed by: Wilbert Phillips MD | | Electronically signed: 09/20/2018 6:40 PM | + + + +---------+ + + | Performing | Address | City/State/Zipcode | Phone Number | | Organization | | | | + +---------+ + + | [facility] | | | | + +---------+ + + Lactic Acid (09/20/2018 4:21 PM PDT) + +-------+ + + + | Component | Value | Ref Range | Performed | Pathologist | | | | | At | Signature | + +-------+ + + + | Lactate | 1.0 | 0.5 - 2.2 | [facility] | | | | | [...] [address] | [place] | [phone] | | [facility] | | [address] | | | - LABORATORY | | | | + + + + + Extra Blue Top Tube (09/20/2018 4:21 PM PDT) + +-------+ + + + [...] [address] | [place] | [phone] | | [facility] | | [address] | | | - LABORATORY | | | | + + + + + Troponin I (09/20/2018 4:21 PM PDT) + + + + + + | Component | Value | Ref Range | Performed | Pathologist | | | | | At | Signature | + + + + + + | Troponin I | <0.01Comment: | <0.06 ng/mL | [facility] | | | | Comment:Reference | | [facility] | | | | Ranges: 0.00-0.06 = | | MEDICAL | | | | NORMAL >0.06 = | | CENTER - | | | | SUSPICIOUS FOR | | LABORATORY | | | | MYOCARDIAL DAMAGE NOTE: | | | | | | Values greater than | | | | | | 0.78 ng/mL have been | | | | | | shown to be strongly | | | | | | associated with acute | | | | | | myocardial infarction. | | | | | | [employer] | | | | | [...] [address] | [place] | [phone] | | [facility] | | [address] | | | - LABORATORY | | | | + + + + + Comprehensive Metabolic Panel (09/20/2018 4:21 PM PDT) + + + + + + | Component | Value | Ref Range | Performed | Pathologist | | | | | At | Signature | + + + + + + | Na | 140 | 136 - 145 | [facility] | | | | | mmol/L | [facility] | | | | | | MEDICAL | | | | | | CENTER - | | | | | | LABORATORY | | + + + + + + | K | 3.9 | 3.4 - 5.1 | [facility] | | | | | mmol/L | [facility] | | | | | | MEDICAL | | | | | | CENTER - | | | | | | LABORATORY | | + + + + + + | Cl | 107 | 98 - 107 mmol/L | [facility] [...] + + + + | Glucose | 102 | 60 - 106 mg/dL | [facility] | | | | | | [facility] | | | | | | MEDICAL | | | | | | CENTER - | | | | | | LABORATORY | | + + + + + + | BUN | 9 | 9 - 23 mg/dL | [facility] | | | | | | [facility] | | | | | | MEDICAL | | | | | | CENTER - | | | | | | LABORATORY | | + + + + + + | Creatinine | 0.84 | 0.55 - 1.02 | [facility] | [...] mL/min/1.73m2 | [facility] | | | [facility] | RATE,ESTIMATED | | MEDICAL | | | | mL/min/[id number] than | | CENTER - | | [...] + + + + | Calcium | 9.7 | 8.7 - 10.4 | [facility] | | | | | mg/dL | [facility] | | | | | | MEDICAL | | | | | | CENTER - | | | | | | LABORATORY | | + + + + + + | Albumin | 4.7 | 3.2 - 4.8 g/dL | [facility] | | | | | | [facility] | | | | | | MEDICAL | | | | | | CENTER - | | | | | | LABORATORY | | + + + + + + | Bilirubin | 0.7 | 0.3 - 1.2 mg/dL | [facility] | | | Total | | | [facility] | | | | | | MEDICAL | | | | | | CENTER - | | | | | | LABORATORY | | + + + + + + | Total | 6.8 | 5.7 - 8.2 g/dL | [facility] | | | Protein | | | [facility] | | | | | | MEDICAL | | | | | | CENTER - | | | | | | LABORATORY | | + + + + + + | AST | 18 | 0 - 34 U/L | [facility] | | | | | | [facility] | | | | | | MEDICAL | | | | | | CENTER - | | | | | | LABORATORY | | + + + + + + | ALT | 14 | 10 - 49 U/L | [facility] | | | | | | [facility] | | | | | | MEDICAL | | | | | | CENTER - | | | | | | LABORATORY | | + + + + + + | Alkaline | 81 | 46 - 116 U/L | [facility] | | | Phosphatase | | | [facility] | | | | | | MEDICAL | | | | | | CENTER - | | | | | | LABORATORY | | + + + + + + | Globulin | 2.1 | 2.1 - 3.8 g/dL | [facility] | | | | | | [facility] | | | | | | MEDICAL | | | | | | CENTER - | | | | | | LABORATORY | | + + + + + + | Albumin/Colleen | 2.2 (H) | 0.8 - 1.9 | [facility] | | | bulin Ratio | | | [facility] | | | | | | MEDICAL | | | | | | CENTER - | | | | | | LABORATORY | | + + + + + + | BUN/Creatin | 10.7 | | [facility] | | | ine [...] ST. | [address] | [place] | [phone] | | [facility] | | [address] | | | - LABORATORY | | | | + + + + + CBC w/ Auto Differential (09/20/2018 4:21 PM PDT) + + + + + + | Component | Value | Ref Range | Performed | Pathologist | | | | | At | Signature | + + + + + + | WBC | 10.9 | 4.0 - 11.0 K/uL | [facility] | | | | | | [facility] | | | | | | MEDICAL | | | | | | CENTER - | | | | | | LABORATORY | | + + + + + + | RBC | 5.61 (H) | 3.70 - 5.20 | [facility] [...] + + + + | Hematocrit | 50.1 (H) | 34.0 - 47.0 % | [...] + + + + | MCHC | 33.9 | 32.0 - 36.0 | [facility] | [...] + + + + | RDW-SD | 41.8 | 35.1 - 46.3 fL | [facility] | | | | | | [facility] | | | | | | MEDICAL | | | | | | CENTER - | | | | | | LABORATORY | | + + + + + + | Platelet | 290 | 140 - 440 K/uL | [facility] [...] + + + + | % | 49.8 | 45.0 - 82.0 % | [facility] | | | Neutrophils | | | [facility] | | | | | | MEDICAL | | | | | | CENTER - | | | | | | LABORATORY | | + + + + + + | % | 31.9 | 20.0 - 45.0 % | [facility] [...] + + + + | % | 9.8 (H) | 0.0 - 5.0 % | [facility] | | | Eosinophils | | | [facility] | | | | | | MEDICAL | | | | | | CENTER - | | | | | | LABORATORY | | + + + + + + | % Basophils | 1.8 (H) | 0.0 - 1.0 % | [...] + + + + | Absolute | 5.43 | 1.80 - 8.50 | [facility] | | | Neutrophils | | K/uL | [facility] | | | | | | MEDICAL | | | | | | CENTER - | | | | | | LABORATORY | | + + + + + + | Absolute | 3.48 (H) | 0.60 - 3.20 | [facility] [...] + + + + | Absolute | 1.07 (H) | 0.00 - 0.40 | [facility] | | | Eosinophils | | K/uL | [facility] | | | | | | [facility] | | | | | | [facility] - | | | | | | LABORATORY | | + + + + + + | Absolute | 0.20 (H) | 0.00 - 0.10 | [facility] [...] [address] | [place] | [phone] | | [facility] | | [id number] | | | - LABORATORY | | | | + + + + + ECG 12 lead (09/20/2018 4:20 PM PDT) + + + + + + | Component | Value | Ref Range | Performed | Pathologist | | | | | At | Signature | + + + + + + | VENTRICULAR | 78 | BPM | [facility] | | | RATE EKG | | | | | + + + + + + | ATRIAL RATE | 78 | BPM | [facility] | | + + + + + + | P-R | 172 | ms | [facility] | | | INTERVAL | | | | | + + + + + + | QRS | 86 | ms | [facility] | | | DURATION | | | | | + + + + + + | Q-T | 388 | ms | [facility] | | | INTERVAL | | | | | + + + + + + | Q-T | 442 | ms | [facility] | | | INTERVAL | | | | | | (CORRECTED) | | | | | + + + + + + | P WAVE AXIS | 96 | degrees | [facility] | | + + + + + + | QRS AXIS | 86 | degrees | [facility] | | + + + + + + | T AXIS | 80 | degrees | [facility] | | + + + + + + | INTERPRETAT | Normal sinus rhythmRSR' | | [facility] | | | ION TEXT | pattern in V1-2 suggests | | | | | | right ventricular | | | | | | conduction delayWhen | | | | | | compared with ECG of | | | | | | 23-DEC-2015 | | | | | | 15:23,Previous ECG has | | | | | | undetermined rhythm, | | | | | | needs reviewT wave | | | | | | inversion now evident in | | | | | | Anterior leads :cannot | | | | | | exclude | | | | | | ischemiaConfirmed by | | | | | | PITO VASQUES MD ([id number]) | | | | | | on 09/21/2018 6:21:29 AM | | | | + + [...] | Diagnosis | + + | Acute exacerbation of chronic obstructive pulmonary disease (COPD) ([facility]) - Primary | | Obstructive chronic bronchitis with exacerbation | + + | Shortness of breath | + + | Acute bronchospasm | + + | Dependence on continuous supplemental oxygen | + + | Hypoxia Hypoxemia | + + | Acute on chronic respiratory failure with hypoxia (HCC) | + + | Tobacco abuse Tobacco use disorder | + + | COPD exacerbation (HCC) Obstructive chronic bronchitis with exacerbation | + + | Meningiomas, multiple (HCC) Neoplasm of uncertain behavior of meninges | + + | GERD Esophageal reflux | + + | Essential hypertension Unspecified essential hypertension | + + documented in this encounter Administered Medications + +--------+---------+------+------+------+ | Medication Order | MAR | Action | Dose | Rate | Site | | | Action | Date | | | | + +--------+---------+------+------+------+ + +---+ | albuterol 2.5 mg/3 mL nebulizer | | | solution 2.5 mg 2.5 mg, | | | Nebulization, RT EVERY 4 HOURS | | | PRN, Shortness of Breath, | | | Starting 09/20/18 at 2246, RT | | | will administer., | | + +---+ | | | + +---+ + +-------+ +--------+---+---+ | albuterol 5 mg/mL concentrated | Given | 09/21/19 | 7.5 mg | | | | nebulizer solution 7.5 mg 7.5 | | 19 4:26 | | | | | mg, Nebulization, RT Once, Fri | | PM PDT | | | | | 09/20/18 at 1620, For 1 dose, RT | | | | | | | will administer., | | | | | | + +-------+ +--------+---+---+ +---+---+ | | | +---+---+ + +-------+ +-------+---+---+ | albuterol-ipratropium 2.5-0.5 | Given | 09/21/19 | 3 mLs | | | | mg/3 mL nebulizer solution 3 mL | | 19 4:26 | | | | | 3 mL, Nebulization, RT Once, Fri | | PM PDT | | | | | 09/20/18 at 1620, For 1 dose | | | | | | + +-------+ +-------+---+---+ +---+---+ | | | +---+---+ + +-------+ +-------+---+---+ | albuterol-ipratropium 2.5-0.5 | Given | 09/21/19 | 3 mLs | | | | mg/3 mL nebulizer solution 3 mL | | 19 7:25 | | | | | 3 mL, Nebulization, RT Once, Fri | | PM PDT | | | | | 09/20/18 at 1920, For 1 dose | | | | | | + +-------+ +-------+---+---+ +---+---+ | | | +---+---+ + +-------+ +-------+---+---+ | albuterol-ipratropium 2.5-0.5 | Given | 09/24/19 | 3 mLs | | | | mg/3 mL nebulizer solution 3 mL | | 19 11:02 | | | | | 3 mL, Nebulization, RT Q4H, First | | AM PDT | | | | | dose on Sun09/20/18 at 2200 | | | | | | + +-------+ +-------+---+---+ +-------+ +-------+---+---+ | Given | 09/24/19 | 3 mLs | | | | | 19 7:05 | | | | | | AM PDT | | | | +-------+ +-------+---+---+ | Given | 09/24/19 | 3 mLs | | | | | 19 12:28 | | | | | | AM PDT | | | | +-------+ +-------+---+---+ +---+---+ | | | +---+---+ + +-------+ +-------+---+---+ | aspirin chewable tablet 81 mg | Given | 09/24/19 | 81 mg | | | | 81 mg, Oral, DAILY, First dose on | | 19 9:03 | | | | | 09/21/18 at 0900 | | AM PDT | | | | + +-------+ +-------+---+---+ +-------+ +-------+---+---+ | Given | 09/23/19 | 81 mg | | | | | 19 9:34 | | | | | | AM PDT | | | | +-------+ +-------+---+---+ | Given | 09/22/19 | 81 mg | | | | | 19 8:38 | | | | | | AM PDT | | | | +-------+ +-------+---+---+ +---+---+ | | | +---+---+ + +-------+ +-------+---+---+ | atenolol (TENORMIN) tablet 25 | Given | 09/22/19 | 25 mg | | | | mg 25 mg, Oral, DAILY, First | | 19 8:38 | | | | | dose on 09/21/18 at 0900 | | AM PDT | | | | + +-------+ +-------+---+---+ +---+---+ | | | +---+---+ + +-------+ +-------+---+---+ | atenolol (TENORMIN) tablet 25 | Given | 09/24/19 | 25 mg | | | | mg 25 mg, Oral, DAILY, First | | 19 9:09 | | | | | dose on 09/22/18 at 1200 | | AM PDT | | | | + +-------+ +-------+---+---+ +-------+ +-------+---+---+ | Given | 09/23/19 | 25 mg | | | | | 19 1:33 | | | | | | PM PDT | | | | +-------+ +-------+---+---+ +---+---+ | | | +---+---+ + +---------+ +--------+-------+---+ | azithromycin (ZITHROMAX) 500 mg | New Bag | 09/21/19 | 500 mg | 255 | | | in sodium chloride 0.9% 250 mL | | 19 8:42 | | mL/hr | | | IVPB 500 mg, Intravenous, | | PM PDT | | | | | Administer over 1 Hours, EVERY 24 | | | | | | | HOURS INTERVAL, First dose on | | | | | | | 09/20/18 at 2100, Keep in | | | | | | | refrigerator., Indications: | | | | | | | Community Acquired Pneumonia | | | | | | + +---------+ +--------+-------+---+ +---+---+ | | | +---+---+ + +---------+ +--------+-------+---+ | azithromycin (ZITHROMAX) 500 mg | New Bag | 09/23/19 | 500 mg | 255 | | | in sodium chloride 0.9% 250 mL | | 19 8:05 | | mL/hr | | | IVPB 500 mg, Intravenous, | | PM PDT | | | | | Administer over 1 Hours, EVERY 24 | | | | | | | HOURS INTERVAL, First dose | | | | | | | (after last modification) on Sat | | | | | | | 09/21/18 at 2100, For 2 doses, | | | | | | | Keep in refrigerator., | | | | | | | Indications: Community Acquired | | | | | | | Pneumonia | | | | | | + +---------+ +--------+-------+---+ +---------+ +--------+-------+---+ | New Bag | 09/22/19 | 500 mg | 255 | | | | 19 10:00 | | mL/hr | | | | PM PDT | | | | +---------+ +--------+-------+---+ +---+---+ | | | +---+---+ + +-------+ +-------+---+ + | enoxaparin (LOVENOX) 40 mg/0.4 | Given | 09/24/19 | 40 mg | | Abdomen- | | mL injection 40 mg 40 mg, | | 19 9:01 | | | LLQ | | Subcutaneous, EVERY 24 HOURS | | AM PDT | | | | | (Daily), First dose on Sat | | | | | | | 09/21/18 at 0900 | | | | | | + +-------+ +-------+---+ + +-------+ +-------+---+ + | Given | 09/23/19 | 40 mg | | Abdomen- | | | 19 9:33 | | | LLQ | | | AM PDT | | | | +-------+ +-------+---+ + | Given | 09/22/19 | 40 mg | | Abdomen- | | | 19 8:42 | | | LLQ | | | AM PDT | | | | +-------+ +-------+---+ + +---+---+ | | | +---+---+ + +-------+ +-------+---+---+ | escitalopram (LEXAPRO) tablet | Given | 09/24/19 | 20 mg | | | | 20 mg 20 mg, Oral, DAILY, First | | 19 9:02 | | | | | dose on 09/21/18 at 0900 | | AM PDT | | | | + +-------+ +-------+---+---+ +-------+ +-------+---+---+ | Given | 09/23/19 | 20 mg | | | | | 19 9:34 | | | | | | AM PDT | | | | +-------+ +-------+---+---+ | Given | 09/22/19 | 20 mg | | | | | 19 8:39 | | | | | | AM PDT | | | | +-------+ +-------+---+---+ +---+---+ | | | +---+---+ + +-------+ + +---+---+ | fluticasone (FLONASE) 50 | Given | 09/24/19 | 2 sprays | | | | mcg/nasal spray 2 spray 2 spray, | | 19 9:04 | | | | | Each Nare, DAILY, First dose on | | AM PDT | | | | | 09/21/18 at 1030, Shake | | | | | | | gently., | | | | | | + +-------+ + +---+---+ +-------+ + +---+---+ | Given | 09/22/19 | 2 sprays | | | | | 19 12:21 | | | | | | PM PDT | | | | +-------+ + +---+---+ +---+---+ | | | +---+---+ + +---------+ +---------+-------+---+ | lactated ringers (LR) bolus 500 | New Bag | 09/21/19 | 500 mLs | 250 | | | mL 500 mL, Intravenous, | | 19 4:24 | | mL/hr | | | Administer over 2 Hours, ONCE, | | PM PDT | | | | | 09/20/18 at 1625, For 1 dose | | | | | | + +---------+ +---------+-------+---+ +---+---+ | | | +---+---+ + +-------+ +-------+---+---+ | loratadine (CLARITIN) tablet 10 | Given | 09/24/19 | 10 mg | | | | mg 10 mg, Oral, DAILY, First | | 19 9:03 | | | | | dose on 09/21/18 at 1030 | | AM PDT | | | | + +-------+ +-------+---+---+ +-------+ +-------+---+---+ | Given | 09/23/19 | 10 mg | | | | | 19 9:34 | | | | | | AM PDT | | | | +-------+ +-------+---+---+ | Given | 09/22/19 | 10 mg | | | | | 19 12:21 | | | | | | PM PDT | | | | +-------+ +-------+---+---+ +---+---+ | | | +---+---+ + +-------+ +------+---+---+ | LORazepam (ATIVAN) injection 1 | Given | 09/21/19 | 1 mg | | | | mg 1 mg, Intravenous, ONCE, Fri | | 19 5:35 | | | | | 09/20/18 at 1645, For 1 dose | | PM PDT | | | | + +-------+ +------+---+---+ +---+---+ | | | +---+---+ + +-------+ +--------+---+---+ | LORazepam (ATIVAN) tablet 0.5-1 | Given | 09/21/19 | 0.5 mg | | | | mg 0.5-1 mg, Oral, EVERY 6 | | 19 11:30 | | | | | HOURS PRN, Anxiety, Starting Fri | | PM PDT | | | | | 09/20/18 at 2310 | | | | | | + +-------+ +--------+---+---+ +---+---+ | | | +---+---+ + +-------+ +-------+---+---+ | methylPREDNISolone sodium | Given | 09/22/19 | 40 mg | | | | succinate (solu-MEDROL) 40 mg/mL | | 19 6:18 | | | | | injection 40 mg 40 mg, | | AM PDT | | | | | Intravenous, EVERY 6 HOURS (4 | | | | | | | times per day), First dose (after | | | | | | | last modification) on Sat | | | | | | | 09/21/18 at 0000, Mix with 1 mL | | | | | | | provided diluent to make 40 | | | | | | | mg/mL., | | | | | | + +-------+ +-------+---+---+ +-------+ +-------+---+---+ | Given | 09/21/19 | 40 mg | | | | | 19 11:30 | | | | | | PM PDT | | | | +-------+ +-------+---+---+ +---+---+ | | | +---+---+ + +-------+ +-------+---+---+ | methylPREDNISolone sodium | Given | 09/23/19 | 40 mg | | | | succinate (solu-MEDROL) 40 mg/mL | | 19 6:10 | | | | | injection 40 mg 40 mg, | | AM PDT | | | | | Intravenous, EVERY 12 HOURS (2 | | | | | | | times per day), First dose (after | | | | | | | last modification) on Sat | | | | | | | 09/21/18 at 1800, Mix with 1 mL | | | | | | | provided diluent to make 40 | | | | | | | mg/mL., | | | | | | + +-------+ +-------+---+---+ +-------+ +-------+---+---+ | Given | 09/22/19 | 40 mg | | | | | 19 5:31 | | | | | | PM PDT | | | | +-------+ +-------+---+---+ +---+---+ | | | +---+---+ + +-------+ +--------+---+---+ | methylPREDNISolone sodium | Given | 09/21/19 | 125 mg | | | | succinate (solu-MEDROL) 62.5 | | 19 4:24 | | | | | mg/mL injection 125 mg 125 mg, | | PM PDT | | | | | Intravenous, ONCE, Sun09/20/18 at | | | | | | | 1620, For 1 dose, Mix with 2 mL | | | | | | | provided diluent to make 62.5 | | | | | | | mg/mL., | | | | | | + +-------+ +--------+---+---+ +---+---+ | | | +---+---+ + +---------+ +---------+---+ + | nicotine (NICODERM) 21 mg/24 hr | Patch | 09/24/19 | 1 patch | | Arm-Left | | 1 patch 1 patch, Transdermal, | Applied | 19 9:00 | | | Upper | | DAILY, First dose on 09/21/18 | | AM PDT | | | | | at 0900 | | | | | | + +---------+ +---------+---+ + +---+---+ | | | +---+---+ + +-------+ +-------+---+---+ | pantoprazole (PROTONIX) DR | Given | 09/24/19 | 40 mg | | | | tablet 40 mg 40 mg, Oral, DAILY | | 19 6:37 | | | | | BEFORE BREAKFAST, First dose on | | AM PDT | | | | | 09/21/18 at 0730, Indication: | | | | | | | GERD | | | | | | + +-------+ +-------+---+---+ +-------+ +-------+---+---+ | Given | 09/23/19 | 40 mg | | | | | 19 6:10 | | | | | | AM PDT | | | | +-------+ +-------+---+---+ | Given | 09/22/19 | 40 mg | | | | | 19 6:18 | | | | | | AM PDT | | | | +-------+ +-------+---+---+ +---+---+ | | | +---+---+ + +-------+ +-------+---+---+ | predniSONE (DELTASONE) tablet | Given | 09/24/19 | 40 mg | | | | 40 mg 40 mg, Oral, DAILY, First | | 19 9:01 | | | | | dose on Sun09/23/18 at 0900 | | AM PDT | | | | + +-------+ +-------+---+---+ +---+---+ | | | +---+---+ documented in this encounter
--- OUTSIDE RECORDS SUMMARY | ~2019-02-03 | XMS | Encounter Summary ---
Demographics + + + | Address | [address] | | | [place] [address] | + + + | Home Phone [...] | Author | [facility] | | | and Samirana | + [...] Team Providers + +------+ + | Care Cognos Report Developer Name | Role | Phone | [...] | | | | [place] | [address] | | | | | [address] | | | | | | [phone] | | | +--------+--------+ + + + [...]
--- OUTSIDE RECORDS SUMMARY | ~2019-02-03 | XMS | Encounter Summary ---
Demographics + + + | Address | [address] | | | [place] [address] | + + + | Home Phone | | + + + | Preferred Language | Unknown | + + + | Marital Status | | + + + | Restorationism Affiliation | 1041 | + + + | Race | Unknown | + + + | Ethnic Group | Unknown | + + + Author + + + | Author | [facility] | | | and [place]ana | + + + | Organization | [facility] | | | [...] Team Providers + +------+ + | Care Plasterer Helper Name | Role | Phone | [...] Refill | | 2018 | | [facility] | [address] | | | | | [address] | [place] | | | | | [place] | [address] | | | | | [address] | | | | | | [phone] | | | +--------+--------+ + + + [...]
--- OUTSIDE RECORDS SUMMARY | ~2019-02-03 | XMS | Encounter Summary ---
Demographics + + + | Address | [address] | | | [place] [address] | + + + | Home Phone | | + + + | Preferred Language | Unknown | + + + | Marital Status | | + + + | Faith Affiliation | 1041 | + + + | Race | Unknown | + + + | Ethnic Group | Unknown | + + + Author + + + | Author | [facility] | | | and [place] | + + + | Organization | [facility] | | | and [...] Providers + +------+ + | Care Environmental Engineer Name | Role | Phone | + +------+ + | Pepper Kamara | PCP | | + +------+ + Encounter Details +--------+ + + + + | Date | Type | Department | Care Team | Description | +--------+ + + + + | 12/05/ | [facility] | [facility] | Pepper Kamara | | | 2011 | Encounter | MED CTR XRAY [address], [place] [address] | | | | | [place] | [place] | | | | | [place] [address] | [address] | | | | | [phone] | | | +--------+ + + + [...] | | 12 | 7 | | 11783 UNITS capsule | mouth once weekly | [...] + | [facility] | [address] | [place], [place] | [phone] | | [facility] | | [address] | | | - LABORATORY | | | | + + + + + | [facility] | [address] | [place] | | | [facility] | | [address] | | | - LABORATORY | | [...] + | [facility] | [address] | [place], [place] | [phone] | | [facility] | | [address] | | | - LABORATORY | | | | + + + + + | [facility] | [address] | [place], [place] | | | [facility] | | [address] | | | - LABORATORY | | [...] + | [facility] | [address] | [place] | [phone] | | [facility] | | [address] | | | - LABORATORY | | | | + + + + + | [facility] | [address] | [place] | | | [facility] | | [address] | | | - LABORATORY | | | | + + + + + US Renal Limited (12/06/2011 9:49 AM PDT) + + | Specimen | + + | | + + + + + | Narrative | Performed At | + + + | [facility] | [facility] | | [address] [facility] | [facility] | | RENAL ULTRASOUND CLINICAL | DIAG IMG | | HISTORY: DECREASED RENAL FUNCTION. COMPARISON: Ultrasound of | | | the abdomen 07/21/2010. TECHNIQUE: Madrid scale, color Doppler, | | | and Doppler waveform imaging of the kidneys and bladder perfor med by | | | a microsoft bi developer. FINDINGS: The right kidney is smooth in [...] Transcribed Date/Time: 12/06/2011 | | | 12:30 Cue Selector: <Electronically Signed by Luis Plasencia | | | MD Ana M> 12/07/11 0728 | | + + + + + | Procedure Note | + + | Jhoan, Rad Conversion - 05/02/2013 6:00 PM [facility] | | Diagnostic Imaging Department [address] [place] [address] | | RENAL ULTRASOUND CLINICAL HISTORY: DECREASED RENAL | | FUNCTION. COMPARISON: Ultrasound of the abdomen 07/21/2010. TECHNIQUE: Madrid scale, | | color Doppler, and Doppler waveform imaging of the kidneys and bladder performed by a | | microsoft bi developer. FINDINGS: The right kidney is smooth in [...] 12:25 | |Transcribed Date/Time: 12/06/2011 12:30 | |Cue Selector: | |<Electronically Signed by Luis Viramontes MD> [...]
--- OUTSIDE RECORDS SUMMARY | ~2019-02-03 | XMS | Encounter Summary ---
Demographics + + + | Address | [address] | | | [place] [address] | + + + | Home Phone | | + + + | Preferred Language | Unknown | + + + | Marital Status | | + + + | Worship Affiliation | 1041 | + + + | Race | Unknown | + + + | Ethnic Group | Unknown | + + + Author + + + | Author | [facility] | | | and Samirana | + + + | Organization | [facility] | | | [...] Team Providers + +------+ + | Care Process Tank Tender Name | Role | Phone | + +------+ + | Scot Anton MD | PCP | | + +------+ + Reason for Visit + + + | Reason | Comments | + + + | Medication Problem | | + + + | Anxiety | | + + + Encounter Details +--------+--------+ + + + | Date | Type | Department | Care Team | Description | +--------+--------+ + + + | 01/14/ | Refill | [facility] | Scot Anton, | Medication Problem; | | 2017 | | [facility] [place] | [address] | Anxiety | | | | [address] | [place] | | | | | [place], [place] | [address] | | | | | [address] | | | | | | [phone] | | | +--------+--------+ + + + [...] + | Diagnosis | + + | Anxiety Anxiety state, unspecified | + + documented in this encounter"
--- OUTSIDE RECORDS SUMMARY | ~2019-02-03 | XMS | Encounter Summary ---
Demographics + + + | Address | [address] | | | [place] [address] | + + + | Home Phone [...] Team Providers + +------+ + | Care Bone Drier Operator Name | Role | Phone | [...] | | | | [place] | [address] | | | | | [address] | | | | | | [phone] | | | +--------+ + + + [...]
--- OUTSIDE RECORDS SUMMARY | ~2019-02-03 | XMS | Encounter Summary ---
Demographics + + + | Address | [address] | | | [place] [address] | + + + | Home Phone | | + + + | Preferred Language | Unknown | + + + | Marital Status | | + + + | Voodoo Affiliation | 1041 | + + + | Race | Unknown | + + + | Ethnic Group | Unknown | + + + Author + + + | Author | [facility] | | | and Samirana | + + + | Organization | [facility] [...] Team Providers + +------+ + | Care Dressage Instructor Name | Role | Phone | + +------+ + | Scot Anton MD | PCP | | + +------+ + Reason for Visit +---------+ + | Reason | Comments | +---------+ + | Results | | +---------+ + Encounter Details +--------+ + + + + | Date | Type | Department | Care Team | Description | +--------+ + + + + | 02/04/ | Telephone | [facility] [place] [facility] | Scot Anotn, | Results | | 2017 | | [facility] | [address] | | | | | [address] | [place] | | | | | [place] | [address] | | | | | [address] | | | | | | [phone] | | | +--------+ + + + [...]
--- OUTSIDE RECORDS SUMMARY | ~2019-02-03 | XMS | Encounter Summary ---
Demographics + + + | Address | [address] | | | [place] [address] | + + + | Home Phone [...] Team Providers + +------+ + | Care Tube Heater Name | Role | Phone | + [...] [place] | | | | | [place] | [address] | | | | | [address] | | | | | | [phone] | | | +--------+ + + + [...]
--- OUTSIDE RECORDS SUMMARY | ~2019-02-03 | XMS | Encounter Summary ---
Demographics + + + | Address | [address] | | | [place] [address] | + + + | Home Phone | | + + + | Preferred Language | Unknown | + + + | Marital Status | | + + + | Mandaen Affiliation | 1041 | + + + | Race | Unknown | + + + | Ethnic Group | Unknown | + + + Author + + + | Author | [facility] | | | and Samirana | + + + | Organization | [facility] | | [...] Providers + +------+ + | Care Water Plant Maintenance Mechanic Name | Role | Phone | + [...] Description | +--------+--------+ + + + | 02/07/ | Refill | [facility] [place] [facility] | Scot Anton, | Medication Refill | | 2018 | | [facility] | [address] | | | | | [address] | [place] | | | | | [place] | [address] | | | | | [address] | | | | | | [phone] | | | +--------+--------+ + + + [...] | | + +------+--------+ + + | CBC with | Lab | Routin | Hypertension, | 1 Occurrences | | Differential | | e | unspecified type | starting 02/08/2018 | | | | | | until 02/08/2019 | + +------+--------+ + + | Microalbumin/Creatin | Lab | Routin | Hypertension, | 1 Occurrences | | ine Ratio, Urine | | e | unspecified type | starting 02/08/2018 | | | | | | until 02/08/2019 | + +------+--------+ + + documented as of this encounter Visit Diagnoses + + | Diagnosis | + + | Hypertension, unspecified type - Primary | + + | Hyperlipidemia, unspecified hyperlipidemia type | + + documented in this encounter"
--- OUTSIDE RECORDS SUMMARY | ~2019-02-03 | XMS | Clinical Summary ---
Demographics + + + | Address | [address] | | | [place] [address] | + + + | Home Phone | | + + + | Preferred Language | Unknown | + + + | Marital Status | | + + + | Christian Affiliation | 1041 | + + + | Race | Unknown | + + + | Ethnic Group | Unknown | + + + Author + + + | Author | [facility] | | | and [place]irana | + + + | Organization | [facility] | | [...] Team Providers + +------+ + | Care Shirt Sewer Name | Role | Phone | + [...] | | | | | | type ([facility]) | | | | | | | [...] [address] | [place] | [phone] | | [facility] | | [address] | | | - LABORATORY | | [...] | 0.72 | 0.55 - 1.02 | [place] | | | | | mg/dL | [facility] | | | | | | MEDICAL | | | | | | CENTER - | | | | | | LABORATORY | | + + + + + + | eGFR if not | >60Comment: GLOMERULAR | >=60 | [facility] | | | | FILTRATION | mL/min/1.73m2 | [facility] | | | [place] | RATE,ESTIMATED | | MEDICAL | | | | mL/min/1.63a2Bfob than | | CENTER - | | [...] + | [facility] | [address] | [place] | [phone] | | [facility] | | [address] | | | - LABORATORY | | [...] | [employer] | [employer] | [id number] | 02/12/ | [phone] | | [employer] | | MEDICAID HMO [...] Lamar | leanne/Kris | | 1960 | [phone] | [place] [address] | | | juliane | | | 8 (Home) | | + +--------+ +--------+ + + Advance Directives + + + + + | Type | Date Recorded | Patient | Explanation | | | | Laundry Technician | | + + + + + | Power of | | | | | Radio Repairer | | | | + + + [...]
--- OUTSIDE RECORDS SUMMARY | ~2019-02-03 | XMS | Encounter Summary ---
Demographics + + + | Address | [address] | | | [place] [address] | + + + | Home Phone [...] Team Providers + +------+ + | Care Combat Systems Officer Name | Role | Phone | + [...] [place] | | | | | | [address] | [place] | | | | | | Phone: | [address] | | | | | | [phone] | Phone: | | | | | | Fax: | [phone] | | | | | | [phone] | | +--------+ + + + + [...] Office | [facility] | [place], Scot R, | Chronic obstructive | | 2019 | Visit | [facility] | [address] | pulmonary disease, | | | | [address] | [place] | unspecified COPD | | | | [place] | [address] | type (HCC) (Primary | | | | [address] | | Dx); Neoplasm, brain | | | | [phone] | | (HCC); Vision loss | | [...] by: Dick Becerril MD Electronically signed: 04/20/2018 4:43 PM Assessment & Plan: 1. Chronic obstructive pulmonary disease, unspecified COPD type (HCC): Improved. Hospital records reviewed and visited by me while inpatient. nocturnal hypoxemia to 88%, exertional hypoxia to 85%. Spiriva ineffective. 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
--- OUTSIDE RECORDS SUMMARY | ~2019-02-03 | XMS | Encounter Summary ---
Demographics + + + | Address | [address] | | | [place] [address] | + + + | Home Phone [...] Team Providers + +------+ + | Care Sexual Abuse Counsellor Name | Role | Phone | + +------+ + | Pepper Kamara | PCP | | + +------+ + Encounter Details +--------+ + + + + | Date | Type | Department | Care Team | Description | +--------+ + + + + | 01/04/ | [facility] | [facility] | Telly Chacon, | | | 2009 | Encounter | MED CTR GENERIC OP | MD [address] | | | | | CONV DEPT [address] | [place] | | | | | [place], | [address] | | | | | [place] [address] | | | | | | [phone] | | | +--------+ + + + [...]
--- OUTSIDE RECORDS SUMMARY | ~2019-02-03 | XMS | Encounter Summary ---
Demographics + + + | Address | [address] | | | [place] [address] | + + + | Home Phone | | + + + | Preferred Language | Unknown | + + + | Marital Status | | + + + | Episcopal Affiliation | 1041 | + + + | Race | Unknown | + + + | Ethnic Group | Unknown | + + + Author + + + | Author | [facility] | | | and Samirana | + + + | Organization | [facility] | | | [...] Team Providers + +------+ + | Care Liner Machine Operator Helper Name | Role | Phone | [...] Description | +--------+--------+ + + + | 02/01/ | Refill | [facility] | Pepper Kamara | Medication Refill | | 2011 | | [facility] [place] | [address] | | | | | [address] | [address] [place] [address] | | | | | [place] | [address] | | | | | [address] | | | | | | [phone] | | | +--------+--------+ + + + [...]
--- OUTSIDE RECORDS SUMMARY | ~2019-02-03 | XMS | Encounter Summary ---
Demographics + + + | Address | [address] | | | [place] [address] | + + + | Home Phone | | + + + | Preferred Language | Unknown | + + + | Marital Status | | + + + | Yazidism Affiliation | 1041 | + + + [...] Team Providers + +------+ + | Care Lab Coordinator Name | Role | Phone | [...] | +--------+ + + + + | 03/11/ | Telephone | [facility] | [place], Telly, | Appointment | | 2011 | | PULMONARY [address] | [place] [address] | | | | | [place], | [place] | | | | | [place] [address] | [address] | | | | | [phone] | | | +--------+ + + + [...]
--- OUTSIDE RECORDS SUMMARY | ~2019-02-03 | XMS | Encounter Summary ---
Demographics + + + | Address | [address] | | | [place] [address] | + + + | Home Phone | | + + + | Preferred Language | Unknown | + + + | Marital Status | | + + + | Quaker Affiliation | 1041 | + + + [...] Providers + +------+ + | Care Paint Stock Clerk Name | Role | Phone | [...] Prior | | 2017 | | [facility] | [address] | Authorization | | | | [address] | [place] | ([employer]); | | | | [place], [place] | [address] | Medication Refill | | | | [address] | | | | | | [phone] | | | +--------+--------+ + + + [...]
--- OUTSIDE RECORDS SUMMARY | ~2019-02-03 | XMS | Encounter Summary ---
Demographics + + + | Address | [address] | | | [place] [address] | + + + | Home Phone | | + + + | Preferred Language | Unknown | + + + | Marital Status | | + + + | Moravian Affiliation | 1041 | + + + | Race | Unknown | + + + | Ethnic Group | Unknown | + + + Author + + + | Author | [facility] | | | and [place] | + + + | Organization | [facility] | | | [...] Team Providers + +------+ + | Care Sign Designer Name | Role | Phone | + +------+ + | Scot Anton MD | PCP | | + +------+ + Encounter Details +--------+ + + + + | Date | Type | Department | Care Team | Description | +--------+ + + + + | 03/20/ | Documentati | [facility] | Dick Medina MD | | | 2017 | on | GASTROENTEROLOGY | [address], [place] | | | | | [address] [place] | [address] [place], [place] | | | | | [address] [place], [place] | [address] | | | | | [address] | | | | | | [phone] | | | +--------+ + + + [...] documented as of this encounter Progress Notes Deysi Abrams RN - 03/20/2017 10:33 AM PSTPatient was scheduled February 20 for upp er endoscopy and colonoscopy. She called and rescheduled to February 28. She called Feb 26 and rescheduled again to March 16. She called [facility] the morning of her procedure Decembe r [address] Medina we will not reschedule her procedures. Electronically sign ed by Deysi Abrams RN at 03/20/2017 10:48 AM PSTdocumented in this encounter Plan of Treatment Not on filedocumented as of this encounter Visit Diagnoses Not on filedocumented in this encounter"
--- OUTSIDE RECORDS SUMMARY | ~2019-02-03 | XMS | Encounter Summary ---
Demographics + + + | Address | [address] | | | [place] [address] | + + + | Home Phone | | + + + | Preferred Language | Unknown | + + + | Marital Status | | + + + | Evangelical Affiliation | 1041 | + + + | Race | Unknown | + + + | Ethnic Group | Unknown | + + + Author + + + | Author | [facility] | | | and [place] | + + + | Organization | [facility] | | [...] Team Providers + +------+ + | Care Freight Handler Name | Role | Phone | + +------+ + | Pepper Kamara PCP | | + +------+ + Encounter Details +--------+ + + + + | Date | Type | Department | Care Team | Description | +--------+ + + + + | 12/24/ | Abstract | [facility] | Pepper Kamara | | | 2011 | | Anti-Coagulation | [address] | | | | | Clinic | [place] | | | | | | [address] | | | | | | | | +--------+ + + + [...]
--- OUTSIDE RECORDS SUMMARY | ~2019-02-03 | XMS | Encounter Summary ---
Demographics + + + | Address | [address] | | | [place] [address] | + + + | Home Phone | | + + + | Preferred Language | Unknown | + + + | Marital Status | | + + + | Muslim Affiliation | 1041 | + + + | Race | Unknown | + + + | Ethnic Group | Unknown | + + + Author + + + | Author | [facility] | | | and [place] | + + + | Organization | [facility] | | | and [...] Team Providers + +------+ + | Care Final Assembler Name | Role | Phone | + +------+ + PCP | Unavailable | + +------+ + Encounter Details +--------+ + + + + | Date | Type | Department | Care Team | Description | +--------+ + + + + | 07/29/ | Hospital | [facility] | | | | 2004 | Encounter | [facility] | | | | | | CENTER [address] | | | | | | [place] | | | | | | [address] | | | | | | [phone] | | | +--------+ + + + [...]
--- OUTSIDE RECORDS SUMMARY | ~2019-02-03 | XMS | Encounter Summary ---
Demographics + + + | Address | [address] | | | [place] [address] | + + + | Home Phone | | + + + | Preferred Language | Unknown | + + + | Marital Status | | + + + | Mandaen Affiliation | 1041 | + + + | Race | Unknown | + + + | Ethnic Group | Unknown | + + + Author + + + | Author | [facility] | | | and [place] | + + + | Organization | [facility] | | | [...] Team Providers + +------+ + | Care Entry Processor Name | Role | Phone | + +------+ + PCP | Unavailable | + +------+ + Encounter Details +--------+ + + + + | Date | Type | Department | Care Team | Description | +--------+ + + + + | 08/04/ | Hospital | [facility] | Darling Lobo | | | 2012 | Encounter | MED CTR EMERGENCY | DO Chidi Marks | | | | | [place] [address] | [facility] [place] | | | | | [place] | [address] | | | | | [address] | | | | | | [phone] | | | +--------+ + + + [...] | | 12 | 7 | | [id number] UNITS capsule | mouth once weekly | | | | | | | for 12 weeks | | | | | + + + +---------+ + + | ergocalciferol | Take one capsule | 19 | 0 | 12/22/19 | | | (ERGOCALCIFEROL) | daily for 7 days, | capsule | | 12 | 6 | | [id number] UNITS capsule | then take one | | | | | | | capsule once a week | | | | | + + [...] + | URINALYSIS, REFLEX | Routin | 08/04/2012 | | Results for this | | MICROSCOPIC AND/OR | e | 7:03 PM | | procedure are in the | | CULTURE | | PDT | | results section. | + +--------+ + + + documented in this encounter Results Urinalysis, Reflex Microscopic and/or Culture (08/04/2012 7:03 PM PDT) + + + + + [...] + + + + | Specific | <=1.005 | 1.001 - 1.030 | [facility] | | | [place] | | | [facility] | | | | | | MEDICAL | | | | | | CENTER - | | | | | | LABORATORY | | + + + + + + | Blood, | LARGE | NEGATIVE | [facility] | | | [...] + + + + | Leukocyte | LARGE | NEGATIVE | [facility] | | | [facility], | | | [facility] | | | Urine | | | MEDICAL | | | | | | CENTER - | | | | | | LABORATORY | | + + + + + + | WBC UA | >30 | 0 - 1 /hpf | [facility] | | | | | | [facility] | | | | | | MEDICAL | | | | | | CENTER - | | | | | | LABORATORY | | + + + + + + | RBC UA | 10-20 | 0 - 3 /hpf | [facility] | | | | | | [facility] | | | | | | MEDICAL | | | | | | CENTER - | | | | | | LABORATORY | | + + + + + + | SQUAMOUS | RARE | FEW /hps | [facility] | | [...] + | [facility] | [address] | [place], [place] | [phone] | | [facility] | | [address] | | | - LABORATORY | | | | + + + + + | [facility] | [address] | [place], [place] | | | [facility] | | [address] | | | - LABORATORY | | | | + + + + + documented in this encounter Visit Diagnoses Not on filedocumented in this encounter"
--- OUTSIDE RECORDS SUMMARY | ~2019-02-03 | XMS | Encounter Summary ---
Demographics + + + | Address | [address] | | | [place] [address] | + + + | Home Phone | | + + + | Preferred Language | Unknown | + + + | Marital Status | | + + + | Gnosticism Affiliation | 1041 | + + + [...] Team Providers + +------+ + | Care Provider Relations Representative Name | Role | Phone | + +------+ + | Scot Anton MD | PCP | | + +------+ + Encounter Details +--------+ + + + + | Date | Type | Department | Care Team | Description | +--------+ + + + + | 10/31/ | Hospital | [facility] | Scot Anton, | Encounter for | | 2019 | Encounter | MED CTR MAMMOGRAPHY | [address] | screening mammogram | | | | [address] | [place] | for breast cancer | | | | [place] | [address] | | | | | [address] | | | | | | [phone] | | | +--------+ + + + [...] | | | | | | type ([facility]) | | | | | | + [...] + +--------+ + + + | RIDGE TOMOSYN | Routin | 10/31/2018 | Encounter for | Results for this | | SCREENING BILATERAL | e | 2:59 PM | screening mammogram | procedure are in the | | | | PDT | for breast cancer | results section. | + +--------+ + + + documented in this encounter Results RIDGE Tomosynthesis Screening Bilateral [...] | | | mammograms dating back to 2003 FINDINGS: Breast composition is | | | [...] 2016 and previous mammograms dating back to 2003FINDINGS: | | Breast composition is comprised of [...] + | Diagnosis | + + | Encounter for screening mammogram for breast cancer | + + documented in this encounter"
--- OUTSIDE RECORDS SUMMARY | ~2019-02-03 | XMS | Encounter Summary ---
Demographics + + + | Address | [address] | | | [place] [address] | + + + | Home Phone | | + + + | Preferred Language | Unknown | + + + | Marital Status | | + + + | Druze Affiliation | 1041 | + + + [...] Team Providers + +------+ + | Care Teleprinter Installer Name | Role | Phone | [...] [facility] | Scot Anton, | [facility] | | 2019 | | [facility] | [address] | | | | | [address] | [place] | | | | | [place] | [address] | | | | | [address] | | | | | | [phone] | | | +--------+ + + + [...]
--- OUTSIDE RECORDS SUMMARY | ~2019-02-03 | XMS | Encounter Summary ---
Demographics + + + | Address | [address] | | | [place] [address] | + + + | Home Phone [...] Team Providers + +------+ + | Care University Teacher Name | Role | Phone | + +------+ + | Scot Anton MD | PCP | | + +------+ + Reason for Referral Evaluate & Treat (Routine) + + + + + + + | Status | Reason | Specialty | Diagnoses / | Referred By | Referred To | | | | | Procedures | Contact | Contact | + + + + + + + | Authorized | Specialty | Gastroenterol | Diagnoses | [place], [facility] | | Services | ogy | Screen for | Scot Flowers MD | Gastroenterol | | | Required | | colon cancer | [address] | ogy [address] | | | [address] [place] | [address] | | | | | | [place], [place] | [address] [place] | | | | | | [address] | [place], [place] | | | | | | Phone: | [address] | | | | | | [phone] | Phone: | | | | | | Fax: | [phone] | | | | | | [phone] | Fax: | | | | | | | [phone] | + + + + + + + Reason for Visit + + + | Reason | Comments | + + + | Procedure | skin excision right upper arm | + + + Encounter Details +--------+---------+ + + + | Date | Type | Department | Care Team | Description | +--------+---------+ + + + | 08/30/ | Office | [facility] | [place], | Neoplasm of | | 2019 | Visit | [facility] | [address] | uncertain behavior | | | | [address] | [place] | of skin of upper arm | | | | [place], [place] | [address] | (Primary Dx); | | | | [address] | | Meningioma (HCC); | | | | [phone] | | Screen for colon | | | | | | cancer [...] + | Blood Pressure | 112/70 | 08/30/2018 10:00 AM | | | | | PDT | | + + + + + | Pulse | 66 | 08/30/2018 10:00 AM | | | | | PDT | | + + + + + | Temperature | 36.2 C (97.2 F) | 08/30/2018 10:00 AM | | | | | PDT | | + + + + + | Respiratory Rate | 20 | 08/30/2018 10:00 AM | | | | | PDT | | + + + + + | Oxygen Saturation | 94% | 08/30/2018 10:00 AM | | | | | PDT | | + + + + + | Inhaled Oxygen | - | - | | | Concentration | | | | + + + + + | Weight | 68.4 kg (150 lb 12.7 | 08/30/2018 10:00 AM | | | | oz) | PDT | | + + + + + | Height | - | - | | + + + + + | Body Mass Index | 27.58 | 04/17/2018 11:43 AM | | | | | PST | | + + + + + documented in this encounter Progress Notes Scot Anton MD - 08/30/2018 9:45 AM PDTFormatting of this note might be different fr om the original. Subjective: Patient ID: Pepper Hand is a 58 y.o. female who is here today for Procedure (skin excision right upper arm) HPI She would like "Nas" removed from her right arm. No new vision changes. No headaches, fever, weight loss. Still smoking. Not ready to quit . She knows she should schedule her mammogram. Patient's medications, allergies, past medical, surgical, social and family histories were obtained and reviewed as appropriate. Review of Systems Objective: BP 112/70 | Pulse 66 | Temp 36.2 C (97.2 F) (Temporal) | Resp 20 | Wt 68.4 kg (150 lb 12.7 oz) | LMP (LMP Unknown) | SpO2 94% | BMI 27.58 kg/m Physical Exam Constitutional: Very pleasant, well developed, NAD Skin: Large soft fleshy marble sized pedunculated papule of right upper medial arm. Stalk ~5 mm d iameter, nodule itself ~30x25 mm. No erythema, tenderness Psychiatric: Well groomed and dressed. Good eye contact. Thought organized and linear. Insight good. Full affect Assessment & Plan: 1. 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 The lesion and surrounding area were given a sterile prep using betadyne and draped in the usual sterile fashion. Local anesthesia obtained by injection 2 cc lidocaine with Epi. A d ermablade was used to shave the lesion at the base. Hemostasis achieved with alumuninum chl oride. Antibiotic ointment and a sterile dressing applied. The specimen was sent for pathol ogic examination. The patient tolerated the procedure well. EBL: Minimal. Complications: None. Plan: 1. Instructed to keep the wound dry and covered for 24-48h and clean thereafter. 2. Warning signs of infection were reviewed. 3. Recommended that the patient use tylenol as needed for pain. - Surgical Pathology Exam 2. Meningioma (HCC): No concerning features. Asymptomatic. Per UTD "approach to the charles gement of small, asymptomatic meningiomas is to reassess the patient with MRI or CT after th ree to six months. If the patient remains asymptomatic and there is no evidence of tumor liv wth, the patient can then be monitored with neuroimaging on an annual basis for three to fiv e years, then every two to three years for as long as they remain a candidate for interventi on." - Repeat MRI in 1 year - Educated on meningiomas, warning signs 3. Screen for colon cancer: Overdue. H/o polyps - * [facility] - AMB Referral Advised to quit smoking Joss Anton MD docu mented in this encounter Plan of Treatment + + +--------+ + + | Name | Type | Priori | Associated Diagnoses | Order Schedule | | | | ty | | | + + +--------+ + + | * [facility] | Outpatient | Routin | Screen for colon | Ordered: 08/30/2018 | | Gastroenterology - | Referral | e | cancer | | | AMB Referral | | | | | + + +--------+ + + documented as of this encounter Procedures + +--------+ + + + | Procedure Name | Priori | Date/Time | Associated Diagnosis | Comments | | | ty | | | | + +--------+ + + + | SURGICAL PATHOLOGY | Routin | 08/30/2018 | Neoplasm of | Results for this | | EXAM | e | 12:00 AM | uncertain behavior | procedure are in the | | | | PDT | of skin of upper arm | results section. | + +--------+ + + + documented in this encounter Results Surgical Pathology Exam (08/30/2018 12:00 AM PDT) + + | Specimen | + + | Tissue - Right upper | | arm structure (body | | structure) | + + + + + | Narrative | Performed At | + + + | SPECIMEN(S): A RIGHT UPPER ARM SPECIMEN SOURCE: A. RIGHT UPPER | [facility] | | ARM CLINICAL HISTORY: Pedunculated fatty nodule of right upper | [facility] | | arm. D48.5 (neoplasm of uncertain behavior of skin) FINAL | | | PATHOLOGIC DIAGNOSIS: Skin and subcutaneous tissue, right upper arm, | | | excision: - Pedunculated lipoma. LJA:cml:C2NR MICROSCOPIC | | | EXAMINATION: Histologic sections of all submitted blocks are examined | | | by light microscopy. These findings, together with the gross | | | examination, support the pathologic diagnosis. GROSS DESCRIPTION: | | | The specimen, labeled "CB, right arm," is received in formalin and | | | consists of 2.5 x 2.0 x 1.0 cm spongy, mercer-white portion of skin with | | | resection margin. The resection margin is inked blue. The | | | specimen is serially sectioned to show mercer-yellow and lobulated cut | | | surfaces. The specimen is entirely submitted in cassette (A1-A2). | | | [place] (under the direct supervision of a pathologist) The Gross | | | Description was prepared using a voice recognition system. The | | | report was reviewed for accuracy; however, sound-alike word errors, | | | addition and/or deletions may occur. If there is any question about | | | this report, please contact Client Services. PERFORMING | | | LABORATORY: The technical component was performed by [facility] | | | [facility], [address] [facility] [address] (Process Stripper: Griselda | | Charisse Dubois MD; CLIA# [id number]). Professional interpretation was | | | performed by [facility], [facility], [address] | | | [place] [address] (Process Stripper: Shawn | | | Aixa Reich MD; CLIA# [id number]). Diagnostician: Shawn Reich | | | Pathologist Electronically Signed 09/02/2018 | | + + + + +---------+ + + | Performing | Address | City[facility] | Phone Number | | Organization | | | | + +---------+ + + | [facility] | | | | | [facility] | | | | + +---------+ + + documented in this encounter Visit Diagnoses + + | Diagnosis | + + | Neoplasm of uncertain behavior of skin of upper arm - Primary | + + | Meningioma (HCC) Benign neoplasm of cerebral meninges | + + | Screen for colon cancer Special screening for malignant neoplasms, colon | + + documented in this encounter
--- OUTSIDE RECORDS SUMMARY | ~2019-02-03 | XMS | Encounter Summary ---
Demographics + + + | Address | [address] | | | [place] [address] | + + + | Home Phone | | + + + | Preferred Language | Unknown | + + + | Marital Status | | + + + | Orthodoxy Affiliation | 1041 | + + + | Race | Unknown | + + + | Ethnic Group | Unknown | + + + Author + + + | Author | [facility] | | | and [place] | + + + | Organization | [facility] | | [...] Team Providers + +------+ + | Care Human Resources Training Manager Name | Role | Phone | [...] | | | | [place] | [address] | | | | | [address] | | | | | | [phone] | | | +--------+ + + + [...]
--- OUTSIDE RECORDS SUMMARY | ~2019-02-03 | XMS | Encounter Summary ---
Demographics + + + | Address | [address] | | | [place] [address] | + + + | Home Phone [...] Team Providers + +------+ + | Care Web Feeder Name | Role | Phone | + +------+ + | ePpper Kamara | PCP | | + +------+ + Encounter Details +--------+ + + + + | Date | Type | Department | Care Team | Description | +--------+ + + + + | 01/01/ | Abstract | [facility] | Pepper Kamara | | | 2011 | | Conversion Location | [address] | | | | | [phone] | [place] | | | | | | [address] | | | | | | | [...]
--- OUTSIDE RECORDS SUMMARY | ~2019-02-03 | XMS | Encounter Summary ---
Demographics + + + | Address | [address] | | | [place] [address] | + + + | Home Phone [...] Team Providers + +------+ + | Care Lumber Sorter Name | Role | Phone | + +------+ + | Scot Anton MD | PCP | | + +------+ + Reason for Visit + + + | Reason | Comments | + + + | Medication Follow-up | Bupropion start | + + + | Medication | | | Management | | + + + | Homeless | | + + + | Medication Question | | + + + Encounter Details +--------+ + + + + | Date | Type | Department | Care Team | Description | +--------+ + + + + | 11/29/ | Telephone | [facility] | Scot Anton, | Medication Follow-up | | 2018 | | [facility] [place] | [address] | (Bupropion start); | | | | [address] | [place] | Medication | | | | [place] | [address] | Management; | | | | [address] | | Homeless; Medication | | | | [phone] | | Question | +--------+ + + + + Social [...]
--- OUTSIDE RECORDS SUMMARY | ~2019-02-03 | XMS | Encounter Summary ---
Demographics + + + | Address | [address] | | | [place] [address] | + + + | Home Phone | | + + + | Preferred Language | Unknown | + + + | Marital Status | | + + + | Yazdanism Affiliation | 1041 | + + + | Race | Unknown | + + + | Ethnic Group | Unknown | + + + Author + + + | Author | [facility] | | | and Samirana | + + + | Organization | [facility] | | [...] Team Providers + +------+ + | Care Transmission Repairer Name | Role | Phone | + +------+ + | Pepper Kamara | PCP | | + +------+ + Reason for Visit + + + | Reason | Comments | + + + | Annual Exam | | + + + Encounter Details +--------+---------+ + + + | Date | Type | Department | Care Team | Description | +--------+---------+ + + + | 10/04/ | Office | [facility] | Pepper Kamara | Routine | | 2011 | Visit | [facility] | L, SOCIAL INSURANCE ANALYST [address] | gynecological | | | | [address] | [address] [place] | examination (Primary | | | | [place] | [address] | Dx); BIPOLAR | | | | [address] | | DISORDER | | | | [phone] | | UNSPECIFIED; Needs | | | | | | flu shot; Other | | | | | | screening mammogram | +--------+---------+ + + + Social History [...] + + + | Blood Pressure | 122/80 | 12/28/2011 11:58 AM | | | | | PDT | | + + + + + | Pulse | 68 | 12/28/2011 11:58 AM | | | | | PDT | | + + + + + | Temperature | - | - | | + + + + + | Respiratory Rate | 16 | 12/28/2011 11:58 AM | | | | | PDT | | + + + + + | Oxygen Saturation | - | - | | + + + + + | Inhaled Oxygen | - | - | | | Concentration | | | | + + + + + | Weight | 76.2 kg (168 lb) | 12/28/2011 11:58 AM | | | | | PDT | | + + + + + | Height | - | - | | + + + + + | Body Mass Index | 30.24 | 01/04/2010 12:00 AM | | | | | PDT | | + + + + + documented in this encounter Patient Instructions Patient Instructions Anh Eisenberg, NAVNEET Pabon - 12/28/2011 12:19 PM PDTFormatting of t his note might be different from the original. December 28, 2011 Pepper Hand [address] [place] [address] Dear Pepper: Thank you for enrolling in [employer]. Please follow the instructions below to view your [employer] online medical record. [employer] allows you to send secure messages to your doctor, view you r test results, renew your prescriptions, schedule appointments, and more. How Do I Sign Up? 1. In your Internet browser, go to [email or web address] 2. Click on the Sign Up Now link in the Sign In box.This will take you to the New Member Si gn Up page. 3. Enter your [employer] access code exactly as it appears below. You will not need to use thi s code after you sign up. If you do not sign up before the expiration date, you must request a new code through your [facility]. [employer] Access Code: [email or web address] Expires: 02/26/2012 12:19 4. Fill in the last four digits of your Social Security Number (xxxx) and Date of (mm /dd/yyyy) when asked and click Submit. You will now be asked to create a [employer] ID. 5. Create a [employer] ID. This will be your [employer] login ID. Your login ID cannot be changed , so think of one that is secure and easy to remember. 6. Create a [employer] password. You can change your password at any time. 7. Enter your Password Reset Question and Answer. This can be used at a later time if you f orget your password. 8. Enter your e-mail address. You will receive e-mail notification when new information is available in [employer]. 9. Click Sign Up. You may now view your medical record. Additional Information If you have questions, you can email or call [phone] to talk to our [employer] care team. Please remember, [email or web address] should NOT be used fo r urgent needs. For all medical emergencies, call 911. Sincerely, NAVNEET Jackson Stop all caffeine products 12 12:19 PM PDT documented in this encounter Progress Notes Pepper Rodrigues ARNP - 12/28/2011 12:13 PM PDTFormatting of this note might be dif ferent from the original. Subjective: Patient ID: Pepper Hand is a 51 y.o. female. HPI Patient's medications, allergies, past medical, surgical, social and family histories were reviewed and updated as appropriate. Here for annual physical Went off lamictal as it was causing her headaches. Declines to be on anything else. Mood luz s been good. No suicidal thoughts Review of Systems Constitutional: Negative for fatigue. Genitourinary: Negative for vaginal discharge. Psychiatric/Behavioral: Positive for sleep disturbance. Negative for suicidal ideas and saray f-injury. The patient is not nervous/anxious. Objective: Physical Exam Nursing note and vitals reviewed. Constitutional: She is oriented to person, place, and time. She appears well-developed and well-nourished. No distress. HENT: Head: Normocephalic and atraumatic. Right Ear: External ear normal. Left Ear: External ear normal. Nose: Nose normal. Mouth/Throat: Oropharynx is clear and moist. Eyes: Conjunctivae are normal. Pupils are equal, round, and reactive to light. Right eye ex hibits no discharge. Left eye exhibits no discharge. No scleral icterus. Neck: Normal range of motion. Neck supple. No thyromegaly present. Cardiovascular: Normal rate, regular rhythm, normal heart sounds and intact distal pulses. Exam reveals no gallop and no friction rub. No murmur heard. Pulmonary/Chest: Effort normal and breath sounds normal. She exhibits no tenderness. Abdominal: Soft. Bowel sounds are normal. She exhibits no distension and no mass. There is no tenderness. Genitourinary: Rectum normal. Swelling: breast exam shows breast to be symmetric, no masses , lumps or skin chages overlying either breast. no nipple discharge. Pelvic exam was perform ed with patient supine. exam reveals normal external female gentialia. No external lesions noted. Urinary m eatus normal and no drainage noted. Introitus pink,moist, vagina pink,moist and well rugated . Small amount physiological discharge noted. Cervix surgically absent. Vaginal cuff well healed. Bimanual exam deferred. Shelly Aviles RN in room for exam Musculoskeletal: Normal range of motion. Lymphadenopathy: She has no cervical adenopathy. Right axillary: No pectoral and no lateral adenopathy present. Left axillary: No pectoral and no lateral adenopathy present. Right: No inguinal and no supraclavicular adenopathy present. Left: No inguinal and no supraclavicular adenopathy present. No cervical lymphadenapathy Neurological: She is alert and oriented to person, place, and time. She has normal reflexes . No cranial nerve deficit. Skin: Skin is warm and dry. She is not diaphoretic. Psychiatric: She has a normal mood and affect. Her behavior is normal. Judgment and thought content normal. Her mood appears not anxious. Her speech is rapid and/or pressured. Her spe ech is not tangential. She is is not hyperactive. Cognition and memory are normal. She does not exhibit a depressed mood. Assessment: 1. Routine gynecological examination 2. BIPOLAR DISORDER UNSPECIFIED 3. Needs flu shot Flu vaccine greater than or equal to 3yo preservative free IM 4. Other screening mammogram [facility] Screening Bilateral Plan: Routine gynecological examination Healthy habits discussed , including regular breast exams, proper calcium intake, exercis e. Follow-up one year for next exam. Will order mammogram. Needs flu shot Immunization counseling discussed by myself and updated today BIPOLAR DISORDER UNSPECIFIED Discussed importance of being on mood stabilizer. Declining. documented in this encounter Plan of Treatment Not on filedocumented as of this encounter Visit Diagnoses + + | Diagnosis | + + | Routine gynecological examination - Primary | + + | BIPOLAR DISORDER UNSPECIFIED Bipolar disorder, unspecified | + + | Needs flu shot Need for prophylactic vaccination and inoculation against influenza | + + | Other screening mammogram | + + documented in this encounter"
--- OUTSIDE RECORDS SUMMARY | ~2019-02-03 | XMS | Encounter Summary ---
Demographics + + + | Address | [address] | | | [place] [address] | + + + | Home Phone [...] + + | Author | [facility] | | | and Samirana | + + + | Organization | [facility] | | | [...] Team Providers + +------+ + | Care Chiropractic Care Name | Role | Phone | + [...] [place] | | | | | | [address] | | | | | | [phone] | | | +--------+ + + + [...]
--- OUTSIDE RECORDS SUMMARY | ~2019-02-03 | XMS | Encounter Summary ---
Demographics + + + | Address | [address] | | | [place] [address] | + + + | Home Phone [...] Team Providers + +------+ + | Care Plate Embosser Name | Role | Phone | + +------+ + | Pepper Kamara | PCP | | + +------+ + Encounter Details +--------+ + + + + | Date | Type | Department | Care Team | Description | +--------+ + + + + | 08/13/ | Hospital | [facility] | Darling Lobo | | | 2011 | Encounter | MED CTR EMERGENCY | DO Chidi Marks | | | | | [place] [address] | [place], [place] | | | | | [place], [place] | [address] | | | | | [address] | | | | | | [phone] | | | +--------+ + + + [...]
--- OUTSIDE RECORDS SUMMARY | ~2019-02-03 | XMS | Encounter Summary ---
Demographics + + + | Address | [address] | | | [place] [address] | + + + | Home Phone | | + + + | Preferred Language | Unknown | + + + | Marital Status | | + + + | Taoist Affiliation | 1041 | + + + [...] Team Providers + +------+ + | Care Hot Mill Shearer Name | Role | Phone | + +------+ + | Scot Anton MD | PCP | | + +------+ + Reason for Visit +--------+ + | Reason | Comments | +--------+ + | Other | | +--------+ + Encounter Details +--------+ + + + + | Date | Type | Department | Care Team | Description | +--------+ + + + + | 04/25/ | Telephone | [facility] | Scot Anton, | Other | | 2019 | | [facility] | MD [address] | | | | | [address] | [place] | | | | | [place] | [address] | | | | | [address] | | | | | | [phone] | | | +--------+ + + + [...]
--- OUTSIDE RECORDS SUMMARY | ~2019-02-03 | XMS | Encounter Summary ---
Demographics + + + | Address | [address] | | | [place] [address] | + + + | Home Phone | | + + + | Preferred Language | Unknown | + + + | Marital Status | | + + + | Cheondoism Affiliation | 1041 | + + + | Race | Unknown | + + + | Ethnic Group | Unknown | + + + Author + + + | Author | [facility] | | | and Samirana | + + + | Organization | [facility] | | [...] Team Providers + +------+ + | Care Jewel Grinder Name | Role | Phone | + +------+ + PCP | Unavailable | + +------+ + Encounter Details +--------+ + + + + | Date | Type | Department | Care Team | Description | +--------+ + + + + | 10/12/ | Hospital | [facility] | Pepper Kamara | | | 2008 | Encounter | MED CTR GENERIC OP | L, LICENSED NURSE PRACTITIONER [address] | | | | | CONV DEPT [address] | [place] | | | | | [place], | [address] | | | | | [place] [address] | | | | | | [phone] | | | +--------+ + + + [...]
--- OUTSIDE RECORDS SUMMARY | ~2019-02-03 | XMS | Encounter Summary ---
Demographics + + + | Address | [address] | | | [place] [address] | + + + | Home Phone | | + + + | Preferred Language | Unknown | + + + | Marital Status | | + + + | Tenriism Affiliation | 1041 | + + + [...] Team Providers + +------+ + | Care Fiberglass Pipe Covering Supervisor Name | Role | Phone | [...] 2017 | | GASTROENTEROLOGY | [address], [place] | | | | | [address] [place] | [address] [place], [place] | | | | | [address] [place], [place] | [address] | | | | | [address] | | | | | | [phone] | | | +--------+ + + + [...]
--- OUTSIDE RECORDS SUMMARY | ~2019-02-03 | XMS | Encounter Summary ---
Demographics + + + | Address | [address] | | | [place] [address] | + + + | Home Phone [...] Team Providers + +------+ + | Care Commis Chef Name | Role | Phone | + +------+ + | Pepper Kamara | PCP | | + +------+ + Encounter Details +--------+ + + + + | Date | Type | Department | Care Team | Description | +--------+ + + + + | 01/10/ | [facility] | [facility] | Franck Lewis, | | | 2011 | Encounter | MED CTR EMERGENCY | [address] | | | | | CENTER [address] | [place] | | | | | [place] | [address] | | | | | [address] | | | | | | [phone] | Sean Calero | | | | | | MD Dequan [address] | | | | | | [address] [place] | | | | | | [place] [address] | | | | | | [phone] | | | | | | | [...] | | 12 | 7 | | [id number] UNITS capsule | mouth once weekly | | | | | | | for 12 weeks | | | | | + + + +---------+ + + | ergocalciferol | Take one capsule | 19 | 0 | 12/22/19 | | | (ERGOCALCIFEROL) | daily for 7 days, | capsule | | 12 | 6 | | [id number] UNITS capsule | then take one | [...]
--- OUTSIDE RECORDS SUMMARY | ~2019-02-03 | XMS | Encounter Summary ---
Demographics + + + | Address | [address] | | | [place] [address] | + + + | Home Phone [...] Team Providers + +------+ + | Care Planning Management It Specialist Name | Role | Phone | [...] | 2016 | Changes | GASTROENTEROLOGY | Customer Operations Associate | | | | | [address] | | | | | | [address] [place] | | | | | | [address] | | | | | | [phone] | | | +--------+ + + + [...]
--- OUTSIDE RECORDS SUMMARY | ~2019-02-03 | XMS | Encounter Summary ---
Demographics + + + | Address | [address] | | | [place] [address] | + + + | Home Phone | | + + + | Preferred Language | Unknown | + + + | Marital Status | | + + + | Yarsani Affiliation | 1041 | + + + [...] Team Providers + +------+ + | Care Gate Services Supervisor Name | Role | Phone | [...] [place] | | | | | | [address] | | | | | | | [...]
--- OUTSIDE RECORDS SUMMARY | ~2019-02-03 | XMS | Encounter Summary ---
Demographics + + + | Address | [address] | | | [place] [address] | + + + | Home Phone [...] Team Providers + +------+ + | Care Automobile Spring Repairer Name | Role | Phone | + +------+ + | Scot Anton MD | PCP | | + +------+ + Encounter Details +--------+ + + + + | Date | Type | Department | Care Team | Description | +--------+ + + + + | 11/02/ | Imaging | [facility] | Provider, | | | 2018 | Exam | MED CTR EXTERNAL | MD [address] | | | | | IMAGING | [address] | | | | | [phone] | [place] [address] | | +--------+ + + + + [...] + + + | [facility] | Routin | 03/31/2015 | | Results for this | | SCREENING BILATERAL | e | 3:30 PM | | procedure are in the | | | | PST | | results section. | + +--------+ + + + documented in this encounter Results [facility] Digital Screening Bilateral (03/31/2015 3:30 PM PST) + + | Specimen | + + | | + + + + + | Narrative | Performed At | + + + | External films for comparison only | [facility] | | | | | No results will be in the chart. | | + + + + +---------+ + + | Performing | Address | City/State/Zipcode | Phone Number | | Organization | | | | + +---------+ + + | [facility] | | | | + +---------+ + + documented in this encounter Visit Diagnoses Not on filedocumented in this encounter"
--- OUTSIDE RECORDS SUMMARY | ~2019-02-03 | XMS | Encounter Summary ---
Demographics + + + | Address | [address] | | | [place] [address] | + + + | Home Phone [...] Team Providers + +------+ + | Care Bioinformatics Computer Scientist Name | Role | Phone | [...] | | | | [place] | [address] | | | | | [address] | | | | | | [phone] | | | +--------+--------+ + + + [...] + | Diagnosis | + + | Essential hypertension Unspecified essential hypertension | + + documented in this encounter"
--- OUTSIDE RECORDS SUMMARY | ~2019-02-03 | XMS | Encounter Summary ---
Demographics + + + | Address | [address] | | | [place] [address] | + + + | Home Phone | | + + + | Preferred Language | Unknown | + + + | Marital Status | | + + + | Zoroastrian Affiliation | 1041 | + + + | Race | Unknown | + + + | Ethnic Group | Unknown | + + + Author + + + | Author | [facility] | | | and Samirana | + + + | Organization | [facility] | | [...] Team Providers + +------+ + | Care Auditor Supervisor Name | Role | Phone | + +------+ + | Scot Anton MD | PCP | | + +------+ + Reason for Visit + + + | Reason | Comments | + + + | Procedure | colon/prop | + + + Encounter Details +--------+ + + + + | Date | Type | Department | Care Team | Description | +--------+ + + + + | 02/12/ | Telephone | [facility] | Dick Medina MD | Procedure | | 2017 | | GASTROENTEROLOGY | [address], [place] | (colon/prop) | | | | [address] [place] | [address] [place], [place] | | | | | [address] [place], [place] | [address] | | | | | [address] | | | | | | [phone] | | | +--------+ + + + [...] + | Diagnosis | + + | Special screening for malignant neoplasms, colon - Primary | + + | Bipolar 1 disorder (HCC) Bipolar I disorder, most recent episode (or current) | | unspecified | + + | Chronic obstructive pulmonary disease, unspecified COPD type (HCC) | + + documented in this encounter"
--- OUTSIDE RECORDS SUMMARY | ~2019-02-03 | XMS | Encounter Summary ---
Demographics + + + | Address | [address] | | | [place] [address] | + + + | Home Phone | | + + + | Preferred Language | Unknown | + + + | Marital Status | | + + + | Scientologist Affiliation | 1041 | + + + | Race | Unknown | + + + | Ethnic Group | Unknown | + + + Author + + + | Author | [facility] | | | and Samirana | + + + | Organization | [facility] | | [...] Team Providers + +------+ + | Care Trial Judge Name | Role | Phone | + +------+ + | Scot Anton MD | PCP | | + +------+ + Reason for Visit + + + | Reason | Comments | + + + | MRI Recommendation | | + + + | Medication Orders | | + + + Encounter Details +--------+ + + + + | Date | Type | Department | Care Team | Description | +--------+ + + + + | 08/14/ | Telephone | [facility] | Scot Anton, | MRI Recommendation; | | 2018 | | [facility] [place] | [address] | Medication Orders | | | | [address] | [place] | | | | | [place], [place] | [address] | | | | | [address] | | | | | | [phone] | | | +--------+ + + + [...] + | Diagnosis | + + | Claustrophobia - Primary Other isolated or specific phobias | + + documented in this encounter"
--- OUTSIDE RECORDS SUMMARY | ~2019-02-03 | XMS | Encounter Summary ---
Demographics + + + | Address | [address] | | | [place] [address] | + + + | Home Phone | | + + + | Preferred Language | Unknown | + + + | Marital Status | | + + + | Yarsanism Affiliation | 1041 | + + + [...] Team Providers + +------+ + | Care Brick Unloader Tender Name | Role | Phone | [...] | | | | [place] | [address] | | | | | [address] | | | | | | [phone] | | | +--------+--------+ + + + [...]
--- OUTSIDE RECORDS SUMMARY | ~2019-02-03 | XMS | Encounter Summary ---
Demographics + + + | Address | [address] | | | [place] [address] | + + + | Home Phone [...] Providers + +------+ + | Care Manager Code Name | Role | Phone | + [...] | | | | [place] | [address] | | | | | [address] | | | | | | [phone] | | | +--------+ + + + [...]
--- OUTSIDE RECORDS SUMMARY | ~2019-02-03 | XMS | Encounter Summary ---
Demographics + + + | Address | [address] | | | [place] [address] | + + + | Home Phone | | + + + | Preferred Language | Unknown | + + + | Marital Status | | + + + | Temple Affiliation | 1041 | + + + | Race | Unknown | + + + | Ethnic Group | Unknown | + + + Author + + + | Author | [facility] | | | and Samirana | + + + | Organization | [facility] | | | [...] Team Providers + +------+ + | Care Oracle Etl Developer Name | Role | Phone | [...] 2017 | | GASTROENTEROLOGY | [address], [place] | (colon/prop) | | | | [address] [place] | [address] [place], [place] | | | | | [address] [place], [place] | [address] | | | | | [address] | | | | | | [phone] | | | +--------+ + + + [...]
--- OUTSIDE RECORDS SUMMARY | ~2019-02-03 | XMS | Encounter Summary ---
Demographics + + + | Address | [address] | | | [place] [address] | + + + | Home Phone [...] Team Providers + +------+ + | Care Nissan Sales Consultant Name | Role | Phone | + +------+ + | Pepper Kamara | PCP | | + +------+ + Encounter Details +--------+ + + + + | Date | Type | Department | Care Team | Description | +--------+ + + + + | 01/10/ | [facility] | [facility] | Franck Lewis, | | | 2011 | Encounter | MED CTR EMERGENCY | [address] | | | | | CENTER [address] | [place] | | | | | [place] | [address] | | | | | [address] | | | | | | [phone] | Sean Calero | | | | | | MD Dequan [address] | | | | | | [address] [place] | | | | | | [place] [address] | | | | | | [phone] | | | | | | | [...] | | 12 | 7 | | [address] UNITS capsule | mouth once weekly | | | | | | | for 12 weeks | | | | | + + + +---------+ + + | ergocalciferol | Take one capsule | 19 | 0 | 12/22/19 | | | (ERGOCALCIFEROL) | daily for 7 days, | capsule | | 12 | 6 | | [id number] UNITS capsule | then take one | [...]
--- OUTSIDE RECORDS SUMMARY | ~2019-02-03 | XMS | Encounter Summary ---
Demographics + + + | Address | [address] | | | [place] [address] | + + + | Home Phone [...] Team Providers + +------+ + | Care Toll Test Desk Worker Name | Role | Phone | + +------+ + | Scot Anton MD | PCP | | + +------+ + Reason for Visit + + + | Reason | Comments | + + + | Records Request | | + + + Encounter Details +--------+ + + + + | Date | Type | Department | Care Team | Description | +--------+ + + + + | 11/15/ | Telephone | [facility] | Scot Anton, | Records Request | | 2017 | | [facility] | [address] | | | | | [address] | [place] | | | | | [place] | [address] | | | | | [address] | | | | | | [phone] | | | +--------+ + + + [...]
--- OUTSIDE RECORDS SUMMARY | ~2019-02-03 | XMS | Encounter Summary ---
Demographics + + + | Address | [address] | | | [place] [address] | + + + | Home Phone | | + + + | Preferred Language | Unknown | + + + | Marital Status | | + + + | Taoist Affiliation | 1041 | + + + | Race | Unknown | + + + | Ethnic Group | Unknown | + + + Author + + + | Author | [facility] | | | and Samirana | + + + | Organization | [facility] | | | and Samirana | + + + | Address | Unknown | + + + | Phone | Unavailable | + + + Support + + +---------+ + | Name | Relationship | Address | Phone | + + +---------+ + | Joes Simpson | ECON | Unknown | | + + +---------+ + Care Team Providers + +------+ + | Care Processing Technician Name | Role | Phone | + +------+ + PCP | Unavailable | + +------+ + Encounter Details +--------+ + + + + | Date | Type | Department | Care Team | Description | +--------+ + + + + | 07/29/ | Hospital | [facility] | | | | 2004 | Encounter | MED CTR EMERGENCY | | | | | | CENTER [address] | | | | | | [place] | | | | | | [address] | | | | | | [phone] | | | +--------+ + + + [...]
--- OUTSIDE RECORDS SUMMARY | ~2019-02-03 | XMS | Encounter Summary ---
Demographics + + + | Address | [address] | | | [place] [address] | + + + | Home Phone [...] Team Providers + +------+ + | Care Rack Pusher Name | Role | Phone | + +------+ + | Pepper Kamara | PCP | | + +------+ + Encounter Details +--------+ + + + + | Date | Type | Department | Care Team | Description | +--------+ + + + + | [facility]19[facility] | Ani Gill, | | | 2009 | Encounter | MED CTR LABORATORY | [address] | | | | | [address] | [place] | | | | | [place] | [address] | | | | | [address] | | | | | | [phone] | | | +--------+ + + + [...]
--- OUTSIDE RECORDS SUMMARY | ~2019-02-03 | XMS | Encounter Summary ---
Demographics + + + | Address | [address] | | | [place] [address] | + + + | Home Phone | | + + + | Preferred Language | Unknown | + + + | Marital Status | | + + + | Holiness Affiliation | 1041 | + + + | Race | Unknown | + + + | Ethnic Group | Unknown | + + + Author + + + | Author | [facility] | | | and Samirana | + + + | Organization | [facility] | | [...] Team Providers + +------+ + | Care Flat Sorting Machine Clerk Name | Role | Phone | + +------+ + PCP | Unavailable | + +------+ + Encounter Details +--------+ + + + + | Date | Type | Department | Care Team | Description | +--------+ + + + + | 10/11/ | Hospital | [facility] | | | | 2006 | Encounter | MED CTR XRAY [address] | | | | | | [place] | | | | | | [place] [address] | | | | | | [phone] | | | +--------+ + + + [...]
--- OUTSIDE RECORDS SUMMARY | ~2019-02-03 | XMS | Encounter Summary ---
Demographics + + + | Address | [address] | | | [place] [address] | + + + | Home Phone [...] Providers + +------+ + | Care Sales And Business Development Manager Name | Role | Phone | [...] Refill | | 2018 | | [facility] | [address] | | | | | [address] | [place] | | | | | [place] | [address] | | | | | [address] | | | | | | [phone] | | | +--------+--------+ + + + [...]
--- OUTSIDE RECORDS SUMMARY | ~2019-02-03 | XMS | Encounter Summary ---
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
--- OUTSIDE RECORDS SUMMARY | ~2019-02-03 | XMS | Encounter Summary ---
Demographics + + + | Address | [address] | | | [place] [address] | + + + | Home Phone [...] Team Providers + +------+ + | Care Classroom Technology Technician Name | Role | Phone | [...] [address] | | | | | [phone] | [place] [address] | | +--------+ + + + + [...]
--- OUTSIDE RECORDS SUMMARY | ~2019-02-03 | XMS | Encounter Summary ---
Demographics + + + | Address | [address] | | | [place] [address] | + + + | Home Phone | | + + + | Preferred Language | Unknown | + + + | Marital Status | | + + + | Caodaism Affiliation | 1041 | + + + | Race | Unknown | + + + | Ethnic Group | Unknown | + + + Author + + + | Author | [facility] | | | and Samirana | + + + | Organization | [facility] | | [...] Providers + +------+ + | Care Language Pathologist Name | Role | Phone | + +------+ + | Pepper Kamara | PCP | | + +------+ + Encounter Details +--------+ + + + + | Date | Type | Department | Care Team | Description | +--------+ + + + + | 12/05/ | Abstract | [place] [facility] | DATA MIGRATION LEVY | | | 2011 | | Conversion Location | SR | | | | | [phone] | | | +--------+ + + + [...] + + + | Blood Pressure | 122/78 | 11/24/2011 12:00 AM | | | | | PDT | | + + + + + | Pulse | - | - | | + [...] + + + + | Weight | 76.7 kg (169 lb) | 11/24/2011 12:00 AM | | | | | PDT | | + + + + + | Height | 158.8 cm (5' 2.5") | 01/04/2010 12:00 AM | | | | | PDT | | + + + + + | Body Mass Index | 30.42 | 01/04/2010 12:00 AM | | | | | PDT | | + + + + + documented in this encounter Plan of Treatment Not on filedocumented as of this encounter Procedures + +--------+ + + + | Procedure Name | Priori | Date/Time | Associated Diagnosis | Comments | | | ty | | | | + +--------+ + + + | RIDGE SCREENING | Routin | 12/12/2011 | | Results for this | | BILATERAL | e | 12:00 AM | | procedure are in the | | | | PDT | | results section. | + +--------+ + + + | RIDGE SCREENING | Routin | 07/19/2010 | | Results for this | | BILATERAL | e | 12:00 AM | | procedure are in the | | | | PDT | | results section. | + +--------+ + + + documented in this encounter Results RIDGE Screening Bilateral (12/12/2011 12:00 AM PDT) + + | Specimen | + + | | + + + + + | Narrative | Performed At | + + + | | | + + + RIDGE Screening Bilateral (07/19/2010 12:00 AM PDT) + + | Specimen | + + | | + + + + + | Narrative | Performed At | + + + | | | + + + documented in this encounter Visit Diagnoses Not on filedocumented in this encounter
--- OUTSIDE RECORDS SUMMARY | ~2019-02-03 | XMS | Encounter Summary ---
Demographics + + + | Address | [address] | | | [place] [address] | + + + | Home Phone [...] + + | Author | [facility] | | | and [place]irana | + + + | Organization | [facility] | | | [...] Team Providers + +------+ + | Care Cushion Maker Name | Role | Phone | + +------+ + | Scot Anton MD | PCP | | + +------+ + Encounter Details +--------+ + + + + | Date | Type | Department | Care Team | Description | +--------+ + + + + | 03/20/ | Documentati | [facility] | Dick Medina MD | | | 2017 | on | GASTROENTEROLOGY | [address], [place] | | | | | [address] [place] | [address] [place], [place] | | | | | [address] [place], [place] | [address] | | | | | [address] | | | | | | [phone] | | | +--------+ + + + [...]
--- OUTSIDE RECORDS SUMMARY | ~2019-02-03 | XMS | Encounter Summary ---
Demographics + + + | Address | [address] | | | [place] [address] | + + + | Home Phone [...] Team Providers + +------+ + | Care Director Of Collections And Archives Name | Role | Phone | + +------+ + PCP | Unavailable | + +------+ + Encounter Details +--------+ + + + + | Date | Type | Department | Care Team | Description | +--------+ + + + + | 07/21/ | Hospital | [facility] | Pepper Kamara | | | 2008 | Encounter | MED CTR XRAY [address] | L, PLANNING ADVISOR [address] | | | | | [address] | [place] | | | | | [place] [address] | [id number] | | | | | [phone] | | | +--------+ + + + [...]
--- OUTSIDE RECORDS SUMMARY | ~2019-02-03 | XMS | Encounter Summary ---
Demographics + + + | Address | [address] | | | [place] [address] | + + + | Home Phone [...] Providers + +------+ + | Care Cook Vacuum Kettle Name | Role | Phone | + [...] | | | | [place] | [address] | | | | | [address] | | | | | | [phone] | | | +--------+ + + + [...]
--- OUTSIDE RECORDS SUMMARY | ~2019-02-03 | XMS | Encounter Summary ---
Demographics + + + | Address | [address] | | | [place] [address] | + + + | Home Phone | | + + + | Preferred Language | Unknown | + + + | Marital Status | | + + + | Rastafari Affiliation | 1041 | + + + [...] Providers + +------+ + | Care Lumber Mover Name | Role | Phone | + +------+ + | Scot Anton MD | PCP | | + +------+ + Reason for Visit + + + | Reason | Comments | + + + | Care Coordination | | + + + Encounter Details +--------+ + + + + | Date | Type | Department | Care Team | Description | +--------+ + + + + | 09/23/ | Telephone | [facility] [place] [facility] | Scot Anton, | Care Coordination | | 2019 | | [facility] | [address] | | | | | [address] | [place] | | | | | [place] | [address] | | | | | [address] | | | | | | [phone] | | | +--------+ + + + [...]
--- OUTSIDE RECORDS SUMMARY | ~2019-02-03 | XMS | Encounter Summary ---
Demographics + + + | Address | [address] | | | [place] [address] | + + + | Home Phone | | + + + | Preferred Language | Unknown | + + + | Marital Status | | + + + | Adventism Affiliation | 1041 | + + + | Race | Unknown | + + + | Ethnic Group | Unknown | + + + Author + + + | Author | [facility] | | | and Samirana | + + + | Organization | [facility] | | | [...] Team Providers + +------+ + | Care Clinical Exercise Physiologist Name | Role | Phone | + [...] [place] | | | | | | [address] | | | | | | [phone] | | | +--------+ + + + [...]
--- OUTSIDE RECORDS SUMMARY | ~2019-02-03 | XMS | Encounter Summary ---
Demographics + + + | Address | [address] | | | [place] [address] | + + + | Home Phone | | + + + | Preferred Language | Unknown | + + + | Marital Status | | + + + | Restorationist Affiliation | 1041 | + + + [...] Team Providers + +------+ + | Care Therapy Teacher Name | Role | Phone | + +------+ + | Pepper Kamara | PCP | | + +------+ + Encounter Details +--------+ + + + + | Date | Type | Department | Care Team | Description | +--------+ + + + + | 03/16/ | Hospital | [facility] | | | | 2009 | Encounter | MED CTR EMERGENCY | | | | | | [address] | | | | | | [place] | | | | | | [address] | | | | | | [phone] | | | +--------+ + + + [...]
--- OUTSIDE RECORDS SUMMARY | ~2019-02-03 | XMS | Encounter Summary ---
Demographics + + + | Address | [address] | | | [place] [address] | + + + | Home Phone | | + + + | Preferred Language | Unknown | + + + | Marital Status | | + + + | Lutheran Affiliation | 1041 | + + + | Race | Unknown | + + + | Ethnic Group | Unknown | + + + Author + + + | Author | [facility] | | | and Samirana | + + + | Organization | [facility] | | | [...] Team Providers + +------+ + | Care Beam Builder Helper Name | Role | Phone | [...] Description | +--------+--------+ + + + | 02/21/ | Refill | [facility] [place] [facility] | Scot Anton, | Medication Refill | | 2017 | | [facility] | [address] | | | | | [address] | [place] | | | | | [place] | [address] | | | | | [address] | | | | | | [phone] | | | +--------+--------+ + + + [...]
--- OUTSIDE RECORDS SUMMARY | ~2019-02-03 | XMS | Encounter Summary ---
Demographics + + + | Address | [address] | | | [place] [address] | + + + | Home Phone [...] Team Providers + +------+ + | Care Completion Supervisor Name | Role | Phone | [...] + | 05/28/ | Telephone | [facility] | Scot Anton, | Medication Prior | | 2019 | | MEDICINE [place] | [address] | Authorization | | | | [address] | [place] | (Rosuvastatin 5 mg) | | | | [place] | [address] | | | | | [address] | | | | | | [phone] | | | +--------+ + + + [...]
--- OUTSIDE RECORDS SUMMARY | ~2019-02-03 | XMS | Encounter Summary ---
Demographics + + + | Address | [address] | | | [place] [address] | + + + | Home Phone [...] Team Providers + +------+ + | Care Professional Organizer Name | Role | Phone | + [...] + + + + | 04/01/ | Telephone | [facility] [place] [facility] | Pepper Kamara | Medication Prior | | 2012 | | [facility]IC[facility] [place] | [address]NE[address]erre[address] | Authorization | | | | [address] | [address] [place] | (Lexapro) | | | | [place] | [address] | | | | | [address] | | | | | | [phone] | | | +--------+ + + + [...]
--- OUTSIDE RECORDS SUMMARY | ~2019-02-03 | XMS | Encounter Summary ---
Demographics + + + | Address | [address] | | | [place] [address] | + + + | Home Phone | | + + + | Preferred Language | Unknown | + + + | Marital Status | | + + + | Samaritan Affiliation | 1041 | + + + | Race | Unknown | + + + | Ethnic Group | Unknown | + + + Author + + + | Author | [facility] | | | and Samirana | + + + | Organization | [facility] | | [...] Team Providers + +------+ + | Care Ice Scraper Name | Role | Phone | + [...] Refill | [facility] [place] [facility] | Pepper Kaamra | Medication Refill | | 2012 | | MEDICINE [place] | L, 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
--- OUTSIDE RECORDS SUMMARY | ~2019-02-03 | XMS | Encounter Summary ---
Demographics + + + | Address | [address] | | | [place] [address] | + + + | Home Phone | | + + + | Preferred Language | Unknown | + + + | Marital Status | | + + + | Mandaen Affiliation | 1041 | + + + | Race | Unknown | + + + | Ethnic Group | Unknown | + + + Author + + + | Author | [facility] | | | and Samirana | + + + | Organization | [facility] | | [...] Team Providers + +------+ + | Care Barrel Coater Name | Role | Phone | + [...] [address] | | | | | [place], | [place], [place] | | | | | [place] [address] | [address] | | | | | [phone] | | | +--------+ + + + [...]
--- OUTSIDE RECORDS SUMMARY | ~2019-02-03 | XMS | Encounter Summary ---
Demographics + + + | Address | [address] | | | [place] [address] | + + + | Home Phone [...] Team Providers + +------+ + | Care Circulating Nurse Name | Role | Phone | + +------+ + | Scot Anton MD | PCP | | + +------+ + Reason for Visit + + + | Reason | Comments | + + + | Medication Prior | | | Authorization | | + + + Encounter Details +--------+ + + + + | Date | Type | Department | Care Team | Description | +--------+ + + + + | 03/25/ | Telephone | [facility] [place] [facility] | Scot Anton, | Medication Prior | | 2018 | | MEDIC[facility] [place] | [address] | Authorization | | | | [address] | [place] | | | | | [place] | [address] | | | | | [address] | | | | | | [phone] | | | +--------+ + + + [...]
--- OUTSIDE RECORDS SUMMARY | ~2019-02-03 | XMS | Encounter Summary ---
Demographics + + + | Address | [address] | | | [place] [address] | + + + | Home Phone | | + + + | Preferred Language | Unknown | + + + | Marital Status | | + + + | Buddhism Affiliation | 1041 | + + + | Race | Unknown | + + + | Ethnic Group | Unknown | + + + Author + + + | Author | [facility] | | | and Samirana | + + + | Organization | [facility] | | [...] Team Providers + +------+ + | Care Importer Or Exporter Name | Role | Phone | + [...] [facility] [place] [facility] | Scot Anton, | [facility] | | 2019 | | MEDICINE [place] | [address] | | | | | [address] | [place] | | | | | [place] | [address] | | | | | [address] | | | | | | [phone] | | | +--------+ + + + [...]
--- OUTSIDE RECORDS SUMMARY | ~2019-02-03 | XMS | Encounter Summary ---
Demographics + + + | Address | [address] | | | [place] [address] | + + + | Home Phone [...] Team Providers + +------+ + | Care Outreach Analyst Name | Role | Phone | [...] | 12/21/ | Refill | [facility] [place] [facility] | Pepper Kamara | Medication Refill | | 2011 | | MEDIC[facility] [place] | NAVNEET Guerrero [address] | | | | | [address] | [place] | | | | | [place] | [address] | | | | | [address] | | | | | | [phone] | | | +--------+--------+ + + + [...]
--- OUTSIDE RECORDS SUMMARY | ~2019-02-03 | XMS | Encounter Summary ---
Demographics + + + | Address | [address] | | | [place] [address] | + + + | Home Phone [...] Team Providers + +------+ + | Care Spares Scheduler Name | Role | Phone | + [...] | +--------+ + + + + | 01/18/ | Telephone | [facility] [place] [facility] | Scot Anton, | Medication Follow-up | | 2018 | | MEDICINE [place] | [address] | | | | | [address] | [place] | | | | | [place] | [address] | | | | | [address] | | | | | | [phone] | | | +--------+ + + + [...]
--- OUTSIDE RECORDS SUMMARY | ~2019-02-03 | XMS | Encounter Summary ---
Demographics + + + | Address | [address] | | | [place] [address] | + + + | Home Phone | | + + + | Preferred Language | Unknown | + + + | Marital Status | | + + + | Denominational Affiliation | 1041 | + + + | Race | Unknown | + + + | Ethnic Group | Unknown | + + + Author + + + | Author | [facility] | | | and Samirana | + + + | Organization | [facility] | | | [...] Team Providers + +------+ + | Care Property Portfolio Officer Name | Role | Phone | [...] | | | | [place] | [address] | | | | | [address] | | | | | | [phone] | | | +--------+--------+ + + + [...]
--- OUTSIDE RECORDS SUMMARY | ~2019-02-03 | XMS | Encounter Summary ---
Demographics + + + | Address | [address] | | | [place] [address] | + + + | Home Phone [...] Team Providers + +------+ + | Care Utility Aide Name | Role | Phone | [...] [place] | | | | | | [address] | | | | | | [phone] | | | +--------+ + + + [...]
--- OUTSIDE RECORDS SUMMARY | ~2019-02-03 | XMS | Encounter Summary ---
Demographics + + + | Address | [address] | | | [place] [address] | + + + | Home Phone | | + + + | Preferred Language | Unknown | + + + | Marital Status | | + + + | Christianity Affiliation | 1041 | + + + | Race | Unknown | + + + | Ethnic Group | Unknown | + + + Author + + + | Author | [facility] | | | and Samirana | + + + | Organization | [facility] | | | and [...] Providers + +------+ + | Care Business Law Instructor Name | Role | Phone | [...] | | | | [place] | [address] | | | | | [address] | | | | | | [phone] | | | +--------+--------+ + + + [...]
--- OUTSIDE RECORDS SUMMARY | ~2019-02-03 | XMS | Encounter Summary ---
Demographics + + + | Address | [address] | | | [place] [address] | + + + | Home Phone [...] Team Providers + +------+ + | Care Terminal Carman Name | Role | Phone | + [...] | 2016 | Changes | GASTROENTEROLOGY | Mercury Cracking Tester | | | | | [address] | | | | | | [address] [place] | | | | | | [address] | | | | | | [phone] | | | +--------+ + + + [...]
--- OUTSIDE RECORDS SUMMARY | ~2019-02-03 | XMS | Encounter Summary ---
Demographics + + + | Address | [address] | | | [place] [address] | + + + | Home Phone | | + + + | Preferred Language | Unknown | + + + | Marital Status | | + + + | Rastafarian Affiliation | 1041 | + + + [...] Team Providers + +------+ + | Care Sand Drier Name | Role | Phone | + +------+ + | Scot Anton MD | PCP | | + +------+ + Encounter Details +--------+ + + + + | Date | Type | Department | Care Team | Description | +--------+ + + + + | 10/17/ | Abstract | [facility] | Provider, | | | 2017 | | MEDICINE [place] | [address] | | | | | [address] | [place]. | | | | | [place] | [place] [address] | | | | | [address] | | | | | | [phone] | | | +--------+ + + + [...]
--- OUTSIDE RECORDS SUMMARY | ~2019-02-03 | XMS | Encounter Summary ---
Demographics + + + | Address | [address] | | | [place] [address] | + + + | Home Phone | | + + + | Preferred Language | Unknown | + + + | Marital Status | | + + + | Mormonism Affiliation | 1041 | + + + [...] Team Providers + +------+ + | Care Contact Center Rep Name | Role | Phone | + +------+ + PCP | Unavailable | + +------+ + Encounter Details +--------+ + + + + | Date | Type | Department | Care Team | Description | +--------+ + + + + | 12/30/ | Hospital | [facility] | | | | 2007 | Encounter | MED CTR EMERGENCY | | | | | | CENTER [address] | | | | | | [place] | | | | | | [address] | | | | | | [phone] | | | +--------+ + + + [...]
--- OUTSIDE RECORDS SUMMARY | ~2019-02-03 | XMS | Encounter Summary ---
Demographics + + + | Address | [address] | | | [place] [address] | + + + | Home Phone | | + + + | Preferred Language | Unknown | + + + | Marital Status | | + + + | Orthodox Affiliation | 1041 | + + + | Race | Unknown | + + + | Ethnic Group | Unknown | + + + Author + + + | Author | [facility] | | | and Samirana | + + + | Organization | [facility] | | | [...] Team Providers + +------+ + | Care Board Mill Supervisor Name | Role | Phone | [...] | | 2019 | Visit | [facility] | [address] | anxiety (Primary | | | | [address] | [place] | Dx); Grief reaction; | | | | [place] | [address] | COPD exacerbation | | | | [address] | | ([facility]); Essential | | | | [phone] | | hypertension; | | | | | | Tobacco abuse; | | | | | | Neoplasm, brain | | | | | | ([facility]) | +--------+---------+ + + + Social [...] you. For additional support, meet with your pearl fisherman, packaging sales consultant, or rabbi, a counselor or therapis t, [...] healthcare provider, or as advised. Call [phone] [id number] if any of these happen: Trouble breathing [...] you to get help Date Last Reviewed: 12/24/201619990486-1079 [employer]. [address] [place] [address]. All righ ts reserved. This information is [...] mg daily. She is attending counseling with [facility]. No SI/H I. No guns in home. [...]
--- OUTSIDE RECORDS SUMMARY | ~2019-02-03 | XMS | Encounter Summary ---
Demographics + + + | Address | [address] | | | [place] [address] | + + + | Home Phone [...] Team Providers + +------+ + | Care Rod Placer Name | Role | Phone | + +------+ + | Pepper Kamara | PCP | | + +------+ + Encounter Details +--------+ + + + + | Date | Type | Department | Care Team | Description | +--------+ + + + + | 03/16/ | Hospital | [facility] | | | | 2009 | Encounter | MED CTR EMERGENCY | | | | | | [address] | | | | | | [place] | | | | | | [address] | | | | | | [phone] | | | +--------+ + + + [...]
--- OUTSIDE RECORDS SUMMARY | ~2019-02-03 | XMS | Encounter Summary ---
Demographics + + + | Address | [address] | | | [place] [address] | + + + | Home Phone [...] Team Providers + +------+ + | Care Vice President Of Operations Name | Role | Phone | + +------+ + | Scot Anton MD | PCP | | + +------+ + Reason for Referral Diagnostic/Screening (Routine) +--------+--------+ + + + + | Status | Reason | Specialty | Diagnoses / | Referred By | Referred To | | | | | Procedures | Contact | Contact | +--------+--------+ + + + + | Closed | | Radiology | Diagnoses | [place], | [facility] | | | | | Neoplasm, | Scot Flowers MD | [address] | | | | | brain (HCC) | [address] | [place], | | | | | Procedures | [address] | [place] | | | | | MRI Brain w | [place] | [address] | | | | | wo Contrast | [address] | Phone: | | | | | | Phone: | [phone] | | | | | | [phone] | Fax: | | | | | | Fax: | [phone] | | | | | | [phone] | | +--------+--------+ + + + + Reason for Visit Diagnostic/Screening (Routine) +--------+--------+ + + + + | Status | Reason | Specialty | Diagnoses / | Referred By | Referred To | | | | | Procedures | Contact | Contact | +--------+--------+ + + + + | Closed | | Radiology | Diagnoses | [place], | [facility] | | | | | Neoplasm, | Scot Flowers MD | [address] | | | | | brain (HCC) | [address] | [place], | | | | | Procedures | [address] | [place] | | | | | MRI Brain w | [place] | [address] | | | | | wo Contrast | [address] | Phone: | | | | | | Phone: | [phone] | | | | | | [phone] | Fax: | | | | | | Fax: | [phone] | | | | | | [phone] | | +--------+--------+ + + + + Encounter Details +--------+ + + + + | Date | Type | Department | Care Team | Description | +--------+ + + + + | 08/21/ | Hospital | [facility] | Scot Anton, | Neoplasm, brain | | 2019 | Encounter | [facility] MRI [address] | [address] | ([facility]) | | | | [address] [place], | [place], [place] | | | | | [place] [address] | [address] | | | | | [phone] | | | +--------+ + + + [...] + + + +---------+ + + | ALPRAZolam (XANAX) | Take 1 tablet by | 2 | 0 | 08/15/19 | | | 0.5 mg | mouth once as needed | tablet | | 19 | 9 | | tabletIndications: | (45-60 minutes | | | | | | Claustrophobia | prior to MRI. May | | | | | | | repeat x 1 dose if | | | | | | | necessary). | | | | | + + [...] + + + +---------+ + + | lovastatin | Take 0.5 tablets by | 45 | 1 | 06/04/19 | | | (MEVACOR) 20 mg | mouth nightly. | tablet | | 19 | 9 | | tabletIndications: | | | | | | | Hyperlipidemia, | | | | | | | unspecified | | | | | | | hyperlipidemia type | | | | | | + + + +---------+ + + | nicotine | Place 1 patch onto | 28 | 0 | 04/22/19 | | | (NICODERM) 21 mg/24 | the skin Daily. | patch | | 19 | 9 | | hr | | | | | | + + + +---------+ + + | predniSONE | Take 4 tablets by | 21 | 0 | 06/29/19 | | | (DELTASONE) 10 mg | mouth for 3 days, | tablet | | 19 | 9 | | tabletIndications: | then take 2 tablets | | | | | | COPD exacerbation | by mouth for 3 days, | | | | | | (HCC) | then take 1 tablet | | | | | | | by mouth for 3 days, | | | | | | | then stop | | | | [...] | | | | | | type ([facility]) | | | | | | + + + +---------+ + + | VENTOLIN HFA 108 | inhale 2 puffs by | 18 g | 3 | 04/30/19 | | | (90 Base) MCG/ACT | mouth every 4 hours | | | 19 | 9 | | inhaler | if needed for | | | | | | | wheezing | | | | | + + [...] MRI BRAIN W WO | Routin | 08/21/2018 | Neoplasm, brain | Results for this | | CONTRAST | e | 2:12 PM | (HCC) | procedure are in the | | | | PDT | | results section. | + +--------+ + + + documented in this encounter Results MRI Brain w wo Contrast (08/21/2018 2:12 PM PDT) + + | Specimen | + + | | + + + + + | Narrative | Performed At | + + + | MRI BRAIN W WO CONTRAST 08/21/2018 1:38 PM HISTORY: Follow-up of | [facility] | | possible meningioma' s seen on MRI 03/2018. COMPARISON: 04/20/2018 | | | PROTOCOL: Sagittal T1, axial T2, axial T2 FLAIR fat sat, axial T1, | | | axial diffusion weighted, axial SWI, axial T1 post gadolinium, | | | coronal T1 post gadolinium, sagittal T1 post gadolinium. The patient | | | was administered 6.5 cc Gadavist. FINDINGS: Remote lacunar | | | infarcts are seen in the right basal ganglia. Stable appearance of | | | mild nonspecific patchy and confluent periventricular and subcortical | | | T2/FLAIR white matter hyperintensities likely representing chronic | | | microvascular ischemic changes. Previously reported right temporal | | | lobe extra-axial mass now measures 1.7 x 1.4 x 0.6 cm which is | | | unchanged when measuring the similar technique. Small enhancing mass | | | is identified just lateral to the right optic nerve measuring 7 mm | | | which is also unchanged. No new suspicious enhancing mass identified. | | | Nonspecific enlargement of the left ophthalmic vein in comparison to | | | the right. Stable appearance of a small 4.5 mm area of enhancement | | | adjacent to the right ophthalmic/communicating segment of the right | | | ICA (best seen on coronal T1 post contrast image 246) . The brainstem | | | is unremarkable. The cerebellum is normal. The pituitary gland has a | | | normal appearance. The ventricles, cisterns, and sulci are of | | | normal size and shape. Normal vascular flow voids are seen. | | | The orbits are normal. Paranasal sinuses are clear. Mastoid air cells | | | are normal. Calvarium, temporal bones, and skull base structures | | | are unremarkable. IMPRESSION - Previously reported right temporal | | | lobe extra-axial mass now measures 1.7 x 1.4 x 0.6 cm which is | | | unchanged when measuring the similar technique. Small enhancing | | | mass is identified just lateral to the right optic nerve measuring 7 | | | mm which is also unchanged. Stable appearance of a small 4.5 mm | | | area of enhancement adjacent to the right ophthalmic/communicating | | | segment of the right ICA (best seen on coronal T1 post contrast image | | | 246) . These masses remain most compatible with benign | | | meningiomas and are unchanged. Neurogenic tumors remain within the | | | differential. No new suspicious enhancing mass identified. | | | Dictated and Signed by: Fabian Jackson MD Electronically signed: | | | 08/21/2018 3:53 PM | | + + + + + | Procedure Note | + + | Jhoan, Rad Results In - 08/21/2018 3:56 PM PDT MRI BRAIN W WO CONTRAST 08/21/2018 1:38 | | PM HISTORY: Follow-up of possible meningioma' s seen on MRI 03/2018.COMPARISON: | | 04/20/2018PROTOCOL: Sagittal T1, axial T2, axial T2 FLAIR fat sat, axial T1, | | axialdiffusion weighted, axial SWI, axial T1 post gadolinium, coronal T1 postgadolinium, | | sagittal T1 post gadolinium. The patient was administered 6.5 | | ccGadavist.FINDINGS:Remote lacunar infarcts are seen in the right basal ganglia. Stable | | appearanceof mild nonspecific patchy and confluent periventricular and | | subcorticalT2/FLAIR white matter hyperintensities likely representing chronic | | microvascularischemic changes. Previously reported right temporal lobe extra-axial mass | | nowmeasures 1.7 x 1.4 x 0.6 cm which is unchanged when measuring the similartechnique. | | Small enhancing mass is identified just lateral to the right opticnerve measuring 7 mm | | which is also unchanged. No new suspicious enhancing massidentified. Nonspecific | | enlargement of the left ophthalmic vein in comparison tothe right. Stable appearance of | | a small 4.5 mm area of enhancement adjacent tothe right ophthalmic/communicating segment | | of the right ICA (best seen oncoronal T1 post contrast image 246) . The brainstem is | | unremarkable. Thecerebellum is normal. The pituitary gland has a normal appearance.The | | ventricles, cisterns, and sulci are of normal size and shape.Normal vascular flow voids | | are seen.The orbits are normal. Paranasal sinuses are clear. Mastoid air cells | | arenormal.Calvarium, temporal bones, and skull base structures are | | unremarkable.IMPRESSION -Previously reported right temporal lobe extra-axial mass now | | measures 1.7 x 1.4x 0.6 cm which is unchanged when measuring the similar technique. | | Small enhancing mass is identified just lateral to the right optic nervemeasuring 7 mm | | which is also unchanged. Stable appearance of a small 4.5 mm area of enhancement | | adjacent to the rightophthalmic/communicating segment of the right ICA (best seen on | | coronal T1 postcontrast image 246) . These masses remain most compatible with benign | | meningiomas and are unchanged.Neurogenic tumors remain within the differential.No new | | suspicious enhancing mass identified. Dictated and Signed by: Fabian Jackson MD | | Electronically signed: 08/21/2018 3:53 PM | | | |The orbits are normal. Paranasal sinuses are clear. Mastoid air cells are | |normal. | | | |Calvarium, temporal bones, and skull base structures are unremarkable. | | | |IMPRESSION - | |Previously reported right temporal lobe extra-axial mass now measures 1.7 x 1.4 | |x 0.6 cm which is unchanged when measuring the similar technique. | | | |Small enhancing mass is identified just lateral to the right optic nerve | |measuring 7 mm which is also unchanged. | | | |Stable appearance of a small 4.5 mm area of enhancement adjacent to the right | |ophthalmic/communicating segment of the right ICA (best seen on coronal T1 post | |contrast image 246) . | | | |These masses remain most compatible with benign meningiomas and are unchanged. | |Neurogenic tumors remain within the differential. | | | |No new suspicious enhancing mass identified. | | | |Dictated and Signed by: Fabian Jackson MD | | Electronically signed: 08/21/2018 3:53 PM | + + + +---------+ + [...] in this encounter Administered Medications + +--------+ +---------+------+------+ | Medication Order | MAR | Action | Dose | Rate | Site | | | Action | Date | | | | + +--------+ +---------+------+------+ | gadobutrol (GADAVIST) injection | Given | 08/22/19 | 6.5 mLs | | | | 6.5 mL 6.5 mL, Intravenous, | | 19 2:11 | | | | | ONCE PRN, Other, Starting Wed | | PM PDT | | | | | 08/21/18 at 1411, For 1 dose, MRI | | | | | | + +--------+ +---------+------+------+ +---+---+ | | | +---+---+ documented in this encounter"
--- OUTSIDE RECORDS SUMMARY | ~2019-02-03 | XMS | Encounter Summary ---
Demographics + + + | Address | [address] | | | [place] [address] | + + + | Home Phone [...] Team Providers + +------+ + | Care Machine Room Engineer Name | Role | Phone | [...] Follow-up | | 2018 | | [facility] | [address] | | | | | [address] | [place] | | | | | [place] | [address] | | | | | [address] | | | | | | [phone] | | | +--------+ + + + [...]
--- OUTSIDE RECORDS SUMMARY | ~2019-02-03 | XMS | Encounter Summary ---
Demographics + + + | Address | [address] | | | [place] [address] | + + + | Home Phone [...] Team Providers + +------+ + | Care Information Technology Data Analyst Name | Role | Phone | + +------+ + | Scot Anton MD | PCP | | + +------+ + Reason for Visit + + + | Reason | Comments | + + + | Appointment | Patient asks for earlier check-in time Carlos 6 | + + + Encounter Details +--------+ + + + + | Date | Type | Department | Care Team | Description | +--------+ + + + + | 02/26/ | Telephone | [facility] | Dick Medina MD | Appointment (Patient | | 2017 | | GASTROENTEROLOGY | [address], [place] | asks for earlier | | | | [address] [place] | [address] [place] | check-in time | | | | [address] [place], [place] | [address] | February 28) | | | | [address] | | | | | | [phone] | | | +--------+ + + + [...]
--- OUTSIDE RECORDS SUMMARY | ~2019-02-03 | XMS | Encounter Summary ---
Demographics + + + | Address | [address] | | | [place] [address] | + + + | Home Phone [...] Providers + +------+ + | Care Adult Secondary Education Instructor Name | Role | Phone | [...] | +--------+ + + + + | 12/31/ | Telephone | [facility] [place] [facility] | Pepper Kamara | Appointment | | 2011 | [facility] | L, TECHNICAL OPERATOR [address] | | | | | [address] | [address] [place] | | | | | [place] | [address] | | | | | [address] | | | | | | [phone] | | | +--------+ + + + [...]
--- OUTSIDE RECORDS SUMMARY | ~2019-02-03 | XMS | Encounter Summary ---
Demographics + + + | Address | [address] | | | [place] [address] | + + + | Home Phone [...] Team Providers + +------+ + | Care Merchandise Clerk Name | Role | Phone | [...] | | | | [place] | [address] | | | | | [address] | | | | | | [phone] | | | +--------+--------+ + + + [...]
--- OUTSIDE RECORDS SUMMARY | ~2019-02-03 | XMS | Encounter Summary ---
Demographics + + + | Address | [address] | | | [place] [address] | + + + | Home Phone [...] Team Providers + +------+ + | Care Core Worker Name | Role | Phone | [...] Services | COPD | Thang H, | [place] | | | Required | | exacerbation | [address] | | | | | ([facility]) | [address] | [place] | | | | | Acute on | [place], | [place], [place] | | | | | chronic | [place] | [address] | | | | | respiratory | [address] | Phone: | | | | | failure with | Phone: | [phone] | | | | | hypoxia | [phone] | Fax: | | | | | ([facility]) | Fax: | [phone] | | | | | | [phone] | | +--------+ + + + + [...] Rehabilitatio | | | | Rehabilitatio | ([facility]) | [address] | [address] | | | | n | Chronic | [place], | [place] | | | | | obstructive | [place] | [place], [place] | | | | | pulmonary | [address] | [address] | | | | | disease, | Phone: | Phone: | | | | | unspecified | [phone] | [phone] | | | | | COPD type | Fax: | Fax: | | | | | ([facility]) Acute | [phone] | [phone] | | | | | on chronic | | | | | | | respiratory | | | | | | | failure with | | | | | | | hypoxia | | | | | | | ([facility]) | | | +--------+ + + + [...] W | | | | | | ([facility]) | [address] | | | | | | Chronic | [place], | | | | | | obstructive | [place] | | | | | | pulmonary | [address] | | | | | | disease, | Phone: | | | | | | unspecified | [phone] | | | | | | COPD type | Fax: | | | | | | ([facility]) Acute | [phone] | | | | | | on chronic | | | | | | | respiratory | | | | | | | failure with | | | | | | | hypoxia | | | | | | | ([facility]) | | | | | | | [...] | | | | | | | ([facility]) | | | +--------+--------+ + + + + Encounter Details +--------+ + + + + | Date | Type | Department | Care Team | Description | +--------+ + + + + | 04/17/ | Hospital | [facility] | Dez Sapp, | COPD exacerbation | | 2019 - | Encounter | MED [facility] | [address] | ([facility]) (Primary Dx); | | | | [address] [place] | [place], [place] | Hypoxia; Tobacco | | 04/21/ | | [place] [address] | [address] | abuse; Anxiety; | | 2019 | | [phone] | | Cerebral | | | | | Rafael Reynoso, | microvascular | | | | | [address] | disease; Chronic | | | | | [place], [place] | obstructive | | | | | [address] | pulmonary disease, | | | | | [phone] | unspecified COPD | | | | [...] is performed of the neck vasculature. 3-D yfor-an-emegzv imaging is performed through the [place] [facility] [place]. MIP reconstructions are performed. Kaci [...] visible oropharyngeal soft tissues are unremar kable. [facility] MRA: There is flow related [...] is performed of the neck vasculature. 3-D vetg-fu-prkrrt imaging is performed through the [place]. MIP reconstructions are performed. Kaci [...] visible oropharyngeal soft tissues are unremar kable. [place] MRA: There is flow related [...] is performed of the neck vasculature. 3-D lxtc-xx-shfxoc imaging is performed through the [place]. MIP reconstructions are performed. Kaci [...] visible oropharyngeal soft tissues are unremar kable. [place] MRA: There is flow related [...] in at 11:30. Contact information: [address] [facility] [place] [id number] Discharge Medications New Medications Details aspirin 81 [...] signed by: Thang Ibarra MD, 04/21/2018 10:56 [facility] documented in this encounter Discharge Instructions Instructions [...] be sent through Care Everywhere.COPD, Treatment for (Hebrew)Pulmonary Rehabilitation Program, What Is (Hebrew)Pulmonary Rehabilitation, G enriqueting Started with (Hebrew)documented in this encounter Medications at Time of [...] might be different f rom the original. [facility]G Hospitalist Progress Note Pepper Hand is [...] have follow up imaging in 3-6 mo [facility] Anxiety/depression: - Continue escitalopram Disposition : [...] 2-12 intact, all vision arias intact, 5/5 fiberline supervisor strength/plantarflexion s trength, soft-touch sensation intact throughout, [...] is performed of the neck vasculature. 3-D gmka-lq-cjtzcz imaging is performed through the [place]. MIP reconstructions are performed. Kaci [...] visible oropharyngeal soft tissues are unremar kable. [place] MRA: There is flow related [...] is performed of the neck vasculature. 3-D obmx-mr-pjlutu imaging is performed through the [place]. MIP reconstructions are performed. Kaci [...] visible oropharyngeal soft tissues are unremar kable. [place] MRA: There is flow related [...] is performed of the neck vasculature. 3-D doqv-yq-wzyibh imaging is performed through the [place]. MIP reconstructions are performed. Kaci [...] visible oropharyngeal soft tissues are unremar kable. [place] MRA: There is flow related [...] as outlined above. Thang Ibarra 04/20/2018 17:09 [facility] [place], Filler Machine Operator - 04/19/2018 3:46 PM PSTFormatting of this [...] Prior to Admission Sig: Patient taking differently ACCOUNTS RECEIVABLE BOOKKEEPER as: Atenolol 25 mg tab 1 tab [...] hours In between dos es Best possible ACCOUNTS RECEIVABLE BOOKKEEPER medication list after pharmacy review: PT REPORTED [...] performed and electronically signed by Char Eldridge, Mds Nurse 2018 14:31 Reviewed by: Mary Garcia, Filler Machine Operator 04/19/2018 15:42 Thang Buenrostro MD - 04/19/2018 3:17 PM PSTFormatting of this note might be different from t dany original. [facility] Hospitalist Progress Note Pepper Hand is [...] as outlined above. 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 Bones: No ac [place] osseous abnormality appreciated. IMPRESSION - No acute [...] Nightly PRN Marybel Elena MSIII 04/19/2018 10:20 [facility] Thang Schultz MD - 04/18/2018 6:32 PM PST [facility] Hospitalist Progress Note Pepper Hand is [...] has a normal appearance. Bones: No ac [place] osseous abnormality appreciated. IMPRESSION - No acute [...] as outlined above. Thang Ibarra 04/18/2018 18:32 [facility] Marybel [place] M edical Student - 04/18/2018 8:07 AM PST [facility] Hospitalist Progress Note Pepper Hand is [...] has a normal appearance. Bones: No ac [place] osseous abnormality appreciated. IMPRESSION - No acute [...] above. Marybel Plasencia Kassy MSIII 04/18/2018 8:13 [facility] documented in this encounter Plan of Treatment + +------+--------+ + + | Name | Type | Priori | Associated Diagnoses | Order Schedule | | | | ty | | | + +------+--------+ + + | DME: Oxygen Therapy | DME | Routin | COPD exacerbation | Ordered: 04/21/2018 | | | | e | ([facility]) Chronic | | | | | | obstructive | | | | | | pulmonary disease, | | | | | | unspecified COPD | | | | | | type ([facility]) Acute on | | | | | | chronic respiratory | | | | | | failure with | | | | | | hypoxia ([facility]) | | + +------+--------+ + + + + +--------+ + + | Name | Type | Priori | Associated Diagnoses | Order Schedule | | | | ty | | | + + +--------+ + + | Ambulatory Referral | Outpatient | Routin | COPD exacerbation | Ordered: 04/21/2018 | | to Pulmonary Rehab | Referral | e | ([facility]) Chronic | | | | | | obstructive | | | | | | pulmonary disease, | | | | | | unspecified COPD | | | | | | type ([facility]) Acute on | | | | | | chronic respiratory | | | | | | failure with | | | | | | hypoxia ([facility]) | | + + +--------+ + + | Referral to Home | Outpatient | Routin | COPD exacerbation | Ordered: 04/21/2018 | | Health | Referral | e | ([facility]) Acute on | | | | | | chronic respiratory | | | | | | failure with hypoxia | | | | | | ([facility]) | | + + +--------+ + + [...] [address] | [place] | [phone] | | [facility] | | [address] | | | - LABORATORY | | [...] + | [address] | [address] | [place] | [phone] | | [facility] | | [address] | | | - LABORATORY | | [...] the neck vasculature. 3-D | | | xnig-il-rvinim imaging is performed through the [place]. | | | MIP reconstructions [...] soft tissues are | | | unremarkable. [facility] MRA: There is flow related [...] is performed of the neck vasculature. 3-D djzb-dw-jaqiihlryotph | | is performed through the [place]. MIP reconstructions areperformed. Imaging | [...] posteriornasopharyngeal and visible oropharyngeal soft tissues are unremarkable.TRIBE | | [place] MRA:There is flow [...] the neck vasculature. 3-D | | | amox-ew-wbzgua imaging is performed through the [place]. | | | MIP reconstructions [...] soft tissues are | | | unremarkable. [place] MRA: There is flow related [...] is performed of the neck vasculature. 3-D gtlo-tn-lkudavphfbhdt | | is performed through the [place]. MIP reconstructions areperformed. Imaging | [...] posteriornasopharyngeal and visible oropharyngeal soft tissues are unremarkable.TRIBE | | [place] MRA:There is flow [...] the neck vasculature. 3-D | | | kthy-ix-nfdgwq imaging is performed through the [place]. | | | MIP reconstructions [...] soft tissues are | | | unremarkable. [place] MRA: There is flow related [...] is performed of the neck vasculature. 3-D wrxz-vm-mhsedvzxefmri | | is performed through the [place]. MIP reconstructions areperformed. Imaging | [...] posteriornasopharyngeal and visible oropharyngeal soft tissues are unremarkable.TRIBE | | [place] MRA:There is flow [...] mL/min/1.73m2 | [facility] | | | [place] | RATE,ESTIMATED | | MEDICAL | | | | mL/min/1.50s2Kgra than | | CENTER - | | [...] [address] | [place] | [phone] | | [facility] | | [address] | | | - LABORATORY | | [...] [address] | [place] | [phone] | | [facility] | | [address] | | | - LABORATORY | | [...] + | [facility] | [address] | [place] | [phone] | | [facility] | | [address] | | | - LABORATORY | | [...] mL/min/1.73m2 | [facility] | | | [place] | RATE,ESTIMATED | | MEDICAL | | | | mL/min/1.51x3Rbmq than | | CENTER - | | [...] [address] | [place] | [phone] | | [facility] | | [address] | | | - LABORATORY | | [...] ST. | [address] | [place], [place] | [phone] | | [facility] | | [address] | | | - LABORATORY | | [...] [address] | [place] | [phone] | | [facility] | | [address] | | | - LABORATORY | | [...] + | [facility] | [address] | [place] | [phone] | | [facility] | | [address] | | | - LABORATORY | | [...] + | [facility] | [address] | [place] | [phone] | | [facility] | | [address] | | | - LABORATORY | | [...] [address] | [place] | [phone] | | [facility] | | [address] | | | - LABORATORY | | [...] | appended report. These | mg/dL | [facility] | | | | results have been [...] | | | FILTRATION | mL/min/1.73m2 | [facility] | | | [place] | RATE,ESTIMATED | | MEDICAL | | | | mL/min/1.36s5Xwfd than | | CENTER - | | [...] [address] | [place] | [phone] | | [facility] | | [address] | | | - LABORATORY | | [...] [address] | [place] | [phone] | | [facility] | | [address] | | | - LABORATORY | | [...] | | | | | dose on [facility] 1/24/19 at 0900 | | AM [...] Lower | | DAILY, First dose on [facility] 04/18/18 | | AM PST | [...]
--- OUTSIDE RECORDS SUMMARY | ~2019-02-03 | XMS | Encounter Summary ---
Demographics + + + | Address | [address] | | | [place] [address] | + + + | Home Phone [...] Team Providers + +------+ + | Care Membership Sales Representative Name | Role | Phone | + +------+ + | Pepper Kamara | PCP | | + +------+ + Encounter Details +--------+ + + + + | Date | Type | Department | Care Team | Description | +--------+ + + + + | 08/08/ | [facility] | [facility] | Pepper Kamara | | | 2010 | Encounter | MED CTR XRAY [address] | [address] | | | | | [place] | [place] | | | | | [place] [address] | [address] | | | | | [phone] | | | +--------+ + + + [...] | + +--------+ + + + | [facility] | | 08/08/2010 | | Results for this | | | | 7:39 AM | | procedure are in the | | | | PDT | | results section. | + +--------+ + + + documented in this encounter Results [facility] Hepatobiliary (08/08/2010 7:39 AM PDT) + + | Specimen | + + | | + + + + + | Narrative | Performed At | + + + | [facility] | [facility] | | [address] [facility] | [facility] | | HEPATOBILIARY SCAN CLINICAL | DIAG IMG | | HISTORY: RIGHT UPPER QUADRANT PAIN. FINDINGS: Patient is | | | studied by administering 8.1 mCi of technetium labeled Choletec | | | followed by abd ominal scanning. Initial images show good | | | background clearance and a normal hepatic outline. The co mmon bile | | | duct is first identified at 9 minutes with gallbladder first | | | identified at 12 minutes. The se are both well within the normal | | | range. However, no small bowel activity is seen in the first 60 m | | | inutes of scanning. At this point, 1.8 mcg of CCK analogue are | | | given. This produces nausea and pain . Shortly after | | | administration, small bowel activity is seen and in the next 30 | | | minutes, 69% of gall bladder activity is ejected. No reflux of | | | bile or ectopic areas of tracer accumulation are seen. | | | IMPRESSION: 1. DELAY IN EXCRETION OF BILE TO THE SMALL BOWEL, | | | WHICH CAN BE SEEN WITH AMPULLARY SPASM. OTHERWISE NORMAL | | | HEPATOBILIARY SCAN. Dictated Date/Time: 08/08/2010 12:58 | | | Transcribed Date/Time: 08/08/2010 15:36 Senior Loss Control Specialist: | | | <Electronically Signed by Ian Pimentel MD> 08/09/10 0802 | | + + + + + | Procedure Note | + + | Jhoan, Rad Conversion - 05/02/2013 2:56 PM [facility] | | Diagnostic Imaging Department [address] [place] [address] | | HEPATOBILIARY SCAN CLINICAL HISTORY: RIGHT UPPER | | QUADRANT PAIN. FINDINGS: Patient is studied by administering 8.1 mCi of technetium | | labeled Choletec followed by abdominal scanning. Initial images show good background | | clearance and a normal hepatic outline. The common bile duct is first identified at 9 | | minutes with gallbladder first identified at 12 minutes. These are both well within the | | normal range. However, no small bowel activity is seen in the first 60 minutes of | | scanning. At this point, 1.8 mcg of CCK analogue are given. This produces nausea and | | pain. Shortly after administration, small bowel activity is seen and in the next 30 | | minutes, 69% of gallbladder activity is ejected. No reflux of bile or ectopic areas of | | tracer accumulation are seen. IMPRESSION: 1. DELAY IN EXCRETION OF BILE TO THE SMALL | | BOWEL, WHICH CAN BE SEEN WITH AMPULLARY SPASM. OTHERWISE NORMAL HEPATOBILIARY SCAN. | | Dictated Date/Time: 08/08/2010 12:58Transcribed Date/Time: 08/08/2010 | | 15:36Transcriptionist: <Electronically Signed by Ian Pimentel MD> 08/09/10 | | 0802 | |bladder activity is ejected. | | | |No reflux of bile or ectopic areas of tracer accumulation are seen. | | | |IMPRESSION: | |1. DELAY IN EXCRETION OF BILE TO THE SMALL BOWEL, WHICH CAN BE SEEN WITH AMPULLARY SPASM. OTHERWISE | | NORMAL HEPATOBILIARY SCAN. | | | |Dictated Date/Time: 08/08/2010 12:58 | |Transcribed Date/Time: 08/08/2010 15:36 | |Senior Loss Control Specialist: | |<Electronically Signed by Ian Pimentel MD> 08/09/10 0802 | + + + +---------+ + + | Performing | Address | City/State/[facility] [[email or web address] | Phone Number | | Organization | | | | + +---------+ + + | [place] | | | | | [facility] | | | | + +---------+ + + documented in this encounter Visit Diagnoses Not on filedocumented in this encounter"
--- OUTSIDE RECORDS SUMMARY | ~2019-02-03 | XMS | Encounter Summary ---
Demographics + + + | Address | [address] | | | [place] [address] | + + + | Home Phone | | + + + | Preferred Language | Unknown | + + + | Marital Status | | + + + | Hindu Affiliation | 1041 | + + + [...] Team Providers + +------+ + | Care Solder Deposit Operator Name | Role | Phone | [...] | Scot Flowers MD | [address] | | | | | brain (HCC) | [address] | [place], | | | | | Procedures | [address] | [place] | | | | | MRI Brain w | [place] | [address] | | | | | wo Contrast | [address] | Phone: | | | | | | Phone: | [phone] | | | | | | [phone] | Fax: | | | | | | Fax: | [phone] | | | | | | [phone] | | +--------+--------+ + + + + [...] | Scot Flowers MD | [address] | | | | | brain (HCC) | [address] | [place], | | | | | Procedures | [address] | [place] | | | | | MRI Brain w | [place] | [address] | | | | | wo Contrast | [address] | Phone: | | | | | | Phone: | [phone] | | | | | | [phone] | Fax: | | | | | | Fax: | [phone] | | | | | | [phone] | | +--------+--------+ + + + + Encounter Details +--------+ + + + + | Date | Type | Department | Care Team | Description | +--------+ + + + + | 08/21/ | Hospital | [facility] | Scot Anton, | Neoplasm, brain | | 2019 | Encounter | MED CTR MRI [address] | [address] | ([facility]) | | | | [place], | [place], [place] | | | | | [place] [address] | [address] | | | | | [phone] | | | +--------+ + + + [...] | | | | type ([facility]) | | | | | | [...]
--- OUTSIDE RECORDS SUMMARY | ~2019-02-03 | XMS | Encounter Summary ---
Demographics + + + | Address | [address] | | | [place] [address] | + + + | Home Phone [...] Team Providers + +------+ + | Care Data Technical Lead Name | Role | Phone | + [...] | Scot Flowers MD | [address] | | | | | brain (HCC) | [address] | [place], | | | | | Procedures | [address] | [place] | | | | | MRI Brain w | [place] | [address] | | | | | wo Contrast | [address] | Phone: | | | | | | Phone: | [phone] | | | | | | [phone] | Fax: | | | | | | Fax: | [phone] | | | | | | [phone] | | +--------+--------+ + + + + Reason for Visit + + + | Reason | Comments | + + + | Imaging Only | | + + + Encounter Details +--------+ + + + + | Date | Type | Department | Care Team | Description | +--------+ + + + + | 08/07/ | Telephone | [facility] | Scot Anton, | Imaging Only | | 2019 | | MEDICINE [place] | [address] | | | | | [address] | [place] | | | | | [place] | [address] | | | | | [address] | | | | | | [phone] | | | +--------+ + + + [...] on filedocumented as of this encounter Results MRI Brain w wo [...] | + + | Neoplasm, 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
--- OUTSIDE RECORDS SUMMARY | ~2019-02-03 | XMS | Encounter Summary ---
Demographics + + + | Address | [address] | | | [place] [address] | + + + | Home Phone [...] + | Author | [facility] | | | and Samirana | + + + | Organization | [facility] | | | and [...] Team Providers + +------+ + | Care Community Service Officer Coordinator Name | Role | Phone | [...] | | | | [place] | [address] | | | | | [address] | | | | | | [phone] | | | +--------+ + + + [...]
--- OUTSIDE RECORDS SUMMARY | ~2019-02-03 | XMS | Encounter Summary ---
Demographics + + + | Address | [address] | | | [place] [address] | + + + | Home Phone [...] Team Providers + +------+ + | Care Woodworking Shop Hand Name | Role | Phone | + [...] [place] | | | | | | [address] | | | | | | [phone] | | | +--------+ + + + [...]
--- OUTSIDE RECORDS SUMMARY | ~2019-02-03 | XMS | Encounter Summary ---
Demographics + + + | Address | [address] | | | [place] [address] | + + + | Home Phone | | + + + | Preferred Language | Unknown | + + + | Marital Status | | + + + | Rastafarian Affiliation | 1041 | + + + | Race | Unknown | + + + | Ethnic Group | Unknown | + + + Author + + + | Author | [facility] | | | and Samirana | + + + | Organization | [facility] | | [...] Team Providers + +------+ + | Care Grain Combine Driver Name | Role | Phone | [...] | | | | [place] | [address] | | | | | [address] | | | | | | [phone] | | | +--------+--------+ + + + [...]
--- OUTSIDE RECORDS SUMMARY | ~2019-02-03 | XMS | Encounter Summary ---
Demographics + + + | Address | [address] | | | [place] [address] | + + + | Home Phone [...] Team Providers + +------+ + | Care Overcaster Name | Role | Phone | + [...] + + | 11/01/ | Office | [facility] | Scot Anton, | Mixed stress and | | 2018 | Visit | [facility]IC[facility] | [address] | urge urinary | | | | [address] | [place] | incontinence | | | | [place] | [address] | (Primary Dx); | | | | [address] | | Depression with | | | | [phone] | | anxiety; Tobacco | | | [...] our office, 911, crisis line , or [phone], or go to the ER. Or you can text the crisis line at: [phone] Or chat online at: [email or web address] documented in [...] protective underwear to [facility] [place] 2. Depression with anxiety: In past there [...] 1.001 - 1.030 | | | | [place], | | | | | | [facility], [...]
--- OUTSIDE RECORDS SUMMARY | ~2019-02-03 | XMS | Encounter Summary ---
Demographics + + + | Address | [address] | | | [place] [address] | + + + | Home Phone | | + + + | Preferred Language | Unknown | + + + | Marital Status | | + + + | Mormon Affiliation | 1041 | + + + [...] Team Providers + +------+ + | Care Compression Molding Machine Operator Name | Role | Phone | + +------+ + PCP | Unavailable | + +------+ + Encounter Details +--------+ + + + + | Date | Type | Department | Care Team | Description | +--------+ + + + + | 04/14/ | Hospital | [facility] | Telly Chacon, | | | 2008 | Encounter | MED CTR XRAY [address] | MD [address] | | | | | [place] | [place] | | | | | [place] [address] | [address] | | | | | [phone] | | | +--------+ + + + [...]
--- OUTSIDE RECORDS SUMMARY | ~2019-02-03 | XMS | Encounter Summary ---
Demographics + + + | Address | [address] | | | [place] [address] | + + + | Home Phone | | + + + | Preferred Language | Unknown | + + + | Marital Status | | + + + | Rastafarian Affiliation | 1041 | + + + | Race | Unknown | + + + | Ethnic Group | Unknown | + + + Author + + + | Author | [facility] | | | and Samirana | + + + | Organization | [facility] | [...] Team Providers + +------+ + | Care Landscape Crew Leader Name | Role | Phone | + +------+ + PCP | Unavailable | + +------+ + Encounter Details +--------+ + + + + | Date | Type | Department | Care Team | Description | +--------+ + + + + | 01/15/ | Hospital | [facility] | Elio Chambers | | | 2008 - | Encounter | MED CTR EMERGENCY | MD [address]un [address] | | | | | [place] [address] | [place] [facility] | | | 01/16/ | | [place] | [place] [address] | | | 2008 | | [address] | [phone] | | | | | [phone] | | | +--------+ + + + [...]
--- OUTSIDE RECORDS SUMMARY | ~2019-02-03 | XMS | Encounter Summary ---
Demographics + + + | Address | [address] | | | [place] [address] | + + + | Home Phone | | + + + | Preferred Language | Unknown | + + + | Marital Status | | + + + | Congregation Affiliation | 1041 | + + + | Race | Unknown | + + + | Ethnic Group | Unknown | + + + Author + + + | Author | [facility] | | | and Samirana | + + + | Organization | [facility] | | | [...] Team Providers + +------+ + | Care Infantry Operations Specialist Name | Role | Phone | + +------+ + PCP | Unavailable | + +------+ + Encounter Details +--------+ + + + + | Date | Type | Department | Care Team | Description | +--------+ + + + + | 08/15/ | Hospital | [facility] | | | | 2008 | Encounter | MED CTR EMERGENCY | | | | | | CENTER [address] | | | | | | [place] | | | | | | [address] | | | | | | [phone] | | | +--------+ + + + [...]
--- OUTSIDE RECORDS SUMMARY | ~2019-02-03 | XMS | Encounter Summary ---
Demographics + + + | Address | [address] | | | [place] [address] | + + + | Home Phone [...] Team Providers + +------+ + | Care Trouble Tracer Name | Role | Phone | + [...] | of patient's | | | | [address] | | decision for other | | | | [phone] | | reasons (Primary Dx) | +--------+ [...]
--- OUTSIDE RECORDS SUMMARY | ~2019-02-03 | XMS | Encounter Summary ---
Demographics + + + | Address | [address] | | | [place] [address] | + + + | Home Phone [...] Team Providers + +------+ + | Care Financial Recording Clerk Name | Role | Phone | [...] + + | 09/20/ | Hospital | [facility] | Tong Ford, | Acute exacerbation | | 2019 - | Encounter | MED CTR MEDICAL | MD [address] | of chronic | | | | [address] [place] | [place] | obstructive | | 09/23/ | | [place] [address] | [address] [address], | pulmonary disease | | 2019 | | [phone] | MD Tyler [address] | (COPD) (HCC) | | | | | [address] [place] | (Primary Dx); | | | | | [place] [address] | Shortness of breath; | | | | | [phone] | Acute bronchospasm; | | | | [...] Abd soft, NT Ext WWP Follow-up Information [facility]. Specialty: Emergency Medicine Why: As needed Contact information: [address] [place] [address] Scot Anton MD On 09/30/2018. Specialty: Family Medicine Why: This is your hospital follow up appointment, scheduled for 11:30, Please check in at 11:15. Contact information: [address] [place] [address] Discharge Medications New Medications Details albuterol-ipratropium [...] signed by: Thang Ibarra MD, 09/23/2018 11:43 [facility] documented in this encounter Discharge Instructions Instructions [...] | | | | | type ([facility]) | | | | | [...] Shelby MD - 09/22/2018 2:56 PM PDT [facility] Hospitalist Progress Note Pepper Hand [...] as outlined above. 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 She does not like the patches but states she may try i t again Best possible ELECTRONIC SENSING EQUIPMENT ASSEMBLER medication list after pharmacy review: PT REPORTED [...] performed and electronically signed by Sloane Gaspar, Plan Manager 14:08 Electronically signed by: Luis Benoit RPH 09/22/2018 14:32 Thagn Shelby MD - 09/21/2018 10:16 AM PDT [facility] PMG Hospitalist Progress Note Pepper Hand [...] exclude ischemia Confirmed by LAYO REYNOLDS, PITO ([id number]) on 09/21/2018 6:21:29 AM CBC w/ Auto [...] as outlined above. Thang Ibarra 09/21/2018 10:19 [facility] documented in this encounter Plan of [...] [address] | [place] | [phone] | | [facility] | | [address] | | | - LABORATORY | | [...] + | [facility] | [address] | [place] | [phone] | | [facility] | | [address] | | | - LABORATORY | | [...] mL/min/1.73m2 | [facility] | | | [facility] | RATE,ESTIMATED | | MEDICAL | | | | mL/min/1.20f6Seju than | | CENTER - | | [...] ST. | [address] | [place], [place] | [phone] | | [facility] | | [address] | | | - LABORATORY | | [...] [address] | [place] | [phone] | | [facility] | | [address] | | | - LABORATORY | | [...] | + + + + + | [facility] | [address] | [place] | [phone] | | [facility] | | [address] | | | - LABORATORY | | [...] [address] | [place] | [phone] | | [facility] | | [address] | | | - LABORATORY | | [...] [address] | [place] | [phone] | | [facility] | | [address] | | | - LABORATORY | | [...] | | | | | | [employer] | | | | | [...] [address] | [place] | [phone] | | [facility] | | [address] | | | - LABORATORY | | [...] 102 | 60 - 106 mg/dL | [facility] | | | | | | ST. [...] mL/min/1.73m2 | [facility] | | | [place] | RATE,ESTIMATED | | MEDICAL | | | | mL/min/1.72b4Vlnf than | | CENTER - | | [...] [address] | [place] | [phone] | | [facility] | | [address] | | | - LABORATORY | | [...] | | | | | | [facility] | | | | | | MEDICAL [...] [address] | [place] | [phone] | | [facility] | | [address] | | | - LABORATORY | | [...] | | | | PITO VASQUES MD ([id number]) | | | | | | on [...] of chronic obstructive pulmonary disease (COPD) ([facility]) - Primary | | Obstructive chronic bronchitis [...]
--- OUTSIDE RECORDS SUMMARY | ~2019-02-03 | XMS | Encounter Summary ---
Demographics + + + | Address | [address] | | | [place] [address] | + + + | Home Phone [...] Providers + +------+ + | Care Environmental Health Manager Name | Role | Phone | + +------+ + | Pepper Kamara | PCP | | + +------+ + Reason for Visit + + + | Reason | Comments | + + + | ED Follow-up | | + + + Encounter Details +--------+ + + + + | Date | Type | Department | Care Team | Description | +--------+ + + + + | 01/14/ | Telephone | [facility] [place] [facility] | Charisse Gonzalez, RN | ED Follow-up | | 2011 | | [facility] [place] | | | | | | [address] | | | | | | [place], [place] | | | | | | [address] | | | | | | [phone] | | | +--------+ + + + [...]
--- OUTSIDE RECORDS SUMMARY | ~2019-02-03 | XMS | Encounter Summary ---
Demographics + + + | Address | [address] | | | [place] [address] | + + + | Home Phone [...] Team Providers + +------+ + | Care Candy Packer Name | Role | Phone | + [...] [address] | [place] [place] | (Lexapro) | | | | [place] | [id number] | | | | | [address] | | | | | | [phone] | | | +--------+ + + + [...]
--- OUTSIDE RECORDS SUMMARY | ~2019-02-03 | XMS | Encounter Summary ---
Demographics + + + | Address | [address] | | | [place] [address] | + + + | Home Phone [...] Team Providers + +------+ + | Care Roof Truss Machine Tender Name | Role | Phone [...] + + | 11/22/ | Office | [facility] | Scot Anton, | Bipolar 1 disorder, | | 2019 | Visit | [facility] [place] | [address] | mixed (HCC) (Primary | | | | [address] | [place] | Dx) | | | | [place] | [address] | | | | | [address] | | | | | | [phone] | | | +--------+---------+ + + + [...] Hours: Sunday-Sunday 7 am to 5:30 pm [place] [address] [address] [place] [facility] [address] [facility] Saturdays & Sundays 8 am to noon [facility] (you do not have to see a doctor, just tell them you are there for l abs) If you feel manic or have thoughts of hurting yourself or others - call our office, 911, cr alec line , or [phone], or go to the ER. Or you can text the crisis line at: [phone] Or chat online at: www.suicidepreventionlifeline.org/gethelp/lifelinechat.asp x documented [...] a guard) HPI She was evaluated at [facility] 2 weeks ago for depression after telling her daughter she didn't feel like living. She is seeing a counselor through [facility] every 2 weeks. She me ets with [...]
--- OUTSIDE RECORDS SUMMARY | ~2019-02-03 | XMS | Encounter Summary ---
Demographics + + + | Address | [address] | | | [place] [address] | + + + | Home Phone | | + + + | Preferred Language | Unknown | + + + | Marital Status | | + + + | Congregational Affiliation | 1041 | + + + | Race | Unknown | + + + | Ethnic Group | Unknown | + + + Author + + + | Author | [facility] | | | and Samirana | + + + | Organization | [facility] | | | [...] Team Providers + +------+ + | Care Route Jumper Name | Role | Phone | + +------+ + | Pepper Kamara | PCP | | + +------+ + Encounter Details +--------+ + + + + | Date | Type | Department | Care Team | Description | +--------+ + + + + | 01/07/ | Abstract | [facility] [place] | Dick Medina MD | | | 2011 | | GASTROENTEROLOGY | [address], [place] | | | | | [address] [place] | [address] [place], [place] | | | | | [address] [place], [place] | [address] | | | | | [address] | | | | | | [phone] | | | +--------+ + + + [...]
--- OUTSIDE RECORDS SUMMARY | ~2019-02-03 | XMS | Encounter Summary ---
Demographics + + + | Address | [address] | | | [place] [address] | + + + | Home Phone [...] Team Providers + +------+ + | Care Pediatric Audiologist Name | Role | Phone | + [...] + | 08/14/ | Telephone | [facility] | Scot Anton, | MRI Recommendation; | | 2018 | | [facility] [place] | [address] | Medication Orders | | | | [address] | [place] | | | | | [place], [place] | [address] | | | | | [address] | | | | | | [phone] | | | +--------+ + + + [...]
--- OUTSIDE RECORDS SUMMARY | ~2019-02-03 | XMS | Encounter Summary ---
Demographics + + + | Address | [address] | | | [place] [address] | + + + | Home Phone [...] Team Providers + +------+ + | Care Commissioning Agent Name | Role | Phone | + +------+ + PCP | Unavailable | + +------+ + Reason for Visit + + + | Reason | Comments | + + + | Medication Refill | | + + + Encounter Details +--------+--------+ + + + | Date | Type | Department | Care Team | Description | +--------+--------+ + + + | 06/27/ | Refill | [facility] [place] [facility] | Pepper Kamara | Medication Refill | | 2012 | | MEDICINE [place] | L, SALON PROFESSIONAL [address] | | | | | [address] | [address] [place] | | | | | [place] | [address] | | | | | [address] | | | | | | [phone] | | | +--------+--------+ + + + [...]
--- OUTSIDE RECORDS SUMMARY | ~2019-02-03 | XMS | Encounter Summary ---
Demographics + + + | Address | [address] | | | [place] [address] | + + + | Home Phone [...] Team Providers + +------+ + | Care Statement Services Representative Name | Role | Phone | + +------+ + | Scot Anton MD | PCP | | + +------+ + Encounter Details +--------+ + + + + | Date | Type | Department | Care Team | Description | +--------+ + + + + | 02/12/ | Episode | [facility] [place] | Deysi Abrams | | | 2016 | Changes | GASTROENTEROLOGY | [place] | | | | | [address] | | | | | | [address] [place] | | | | | | [address] | | | | | | [phone] | | | +--------+ + + + [...]
--- OUTSIDE RECORDS SUMMARY | ~2019-02-03 | XMS | Encounter Summary ---
Demographics + + + | Address | [address] | | | [place] [address] | + + + | Home Phone | | + + + | Preferred Language | Unknown | + + + | Marital Status | | + + + | Caodaism Affiliation | 1041 | + + + | Race | Unknown | + + + | Ethnic Group | Unknown | + + + Author + + + | Author | [facility] | | | and Samirana | + + + | Organization | [facility] | | [...] Team Providers + +------+ + | Care Amalgamator Name | Role | Phone | + +------+ + | No, Physician | PCP | Unavailable | + +------+ + Reason for Visit + + + | Reason | Comments | + + + | Back Pain | exam 5/ low back x 3 days post fall | + + + | Medication Refill | lexapro 20mg | + + + Encounter Details +--------+---------+ + + + | Date | Type | Department | Care Team | Description | +--------+---------+ + + + | 09/16/ | Office | [facility] [place] [facility] | Nas Leahy MD | Lumbar strain, | | 2016 | Visit | CARE [address] | [address] | initial encounter | | | | [place] | [place] | (Primary Dx); | | | | [address] | [address] | Chronic depression | | | | [phone] | | | +--------+---------+ + + + [...] + + + | Blood Pressure | 112/76 | 09/16/2016 1:40 PM | | | | | PDT | | + + + + + | Pulse | 72 | 09/16/2016 1:40 PM | | | | | PDT | | + + + + + | Temperature | 37.7 C (99.9 F) | 09/16/2016 1:40 PM | | | | | PDT | | + + + + + | Respiratory Rate | 12 | 09/16/2016 1:40 PM | | | | | PDT | | + + + + + | Oxygen Saturation | 95% | 09/16/2016 1:40 PM | | | | | PDT | | + + + + + | Inhaled Oxygen | - | - | | | Concentration | | | | + + + + + | Weight | 74.8 kg (165 lb) | 09/16/2016 1:40 PM | | | | | PDT | | + + + + + | Height | 157.5 cm (5' 2") | 09/16/2016 1:40 PM | | | | | PDT | | + + + + + | Body Mass Index | 30.18 | 09/16/2016 1:40 PM | | | | | PDT | | + + + + + documented in this encounter Patient Instructions Patient Instructions Nas Leahy MD - 09/16/2016 2:03 PM PDT Back Sprain or Strain Injury to the muscles (strain) or ligaments (sprain) around the spine canbe troubling. In jury may occur after a sudden forceful twisting or bending force such as in a car accident, after a simple awkward movement, or after lifting something heavy with poor body positioning . Inany case, muscle spasm is often present and adds to the pain. Thankfully, most people feel better in 1 to 2 weeks, and most of the rest in 1 to 2 months. Most people can remain active. Unless you had a forceful or traumatic physical injury such asa car accident or fall, X-rays may not be ordered for the first evaluation of a back spr ain or strain. If pain continues and does not respond to medical treatment, your healthcare provider may then order X-rays and other tests. Home care The following guidelines will help you care for your injury at home: When in bed, try to find a comfortable position. A firm mattress is best. Try lying flat on your back with pillows under your knees. You can also try lying on your side with your k nees bent up toward your chest and a pillow between your knees. Don't sit for long periods. Try not to take long car rides or take other trips that have you sitting for a long time. This puts more stress on the lower back than standing or walki ng. During the first 24 to 72 hours after an injury or flare-up, apply an ice pack to the pa inful area for 20 minutes. Then remove it for 20 minutes. Do this for60 to 90 minutes, or several times a day. This will reduce swelling and pain. Be sure to wrap the ice pack in a t hin towel or plastic to protect your skin. You can start with ice, then switch toheat. Heat from a hot shower, hot bath, or heati ng pad reduces pain and works well for muscle spasms. Put heat on the painful area for 20 mi nutes, then remove for 20 minutes.Do this for 60to 90 minutes, or several times a day. D o not use a heating pad while sleeping. It can burn the skin. You can alternate theice and heat. Talk with your healthcare provider to find out the best treatment or therapy for your back pain. Therapeutic massage will help relax the back muscles without stretching them. Be aware of safe lifting methods. Do not lift anything over 15 pounds until all of the p ain is gone. Medicines Talk to your healthcare provider before using medicines, especially if you have other healt h problems or are taking other medicines. You may use acetaminophen or ibuprofen to control pain, unless another pain medicine was prescribed. If you have chronic conditions like diabetes, liver or kidney disease, stomach ulcers, or gastrointestinal bleeding, or are taking blood-thinner medicines, talk with your doctor before taking any medicines. Be careful if you are given prescription medicines, narcotics, or medicine for muscle sp asm. They can cause drowsiness, and affect your coordination, reflexes, and judgment. Do not drive or operate heavy machinery when taking these types of medicines. Only take pain medic ine as prescribed by your healthcare provider. Follow-up care Follow up with your healthcare provider, or as advised. You may need physical therapy or mo re testsif your symptoms get worse. If you had X-rays your healthcare provider may be checking for any broken bones, breaks, or fractures. Bruises and sprains can sometimes hurt as much as a fracture. These injuries can take time to heal completely. If your symptoms don t improve or they get worse, talk with your healthcare provider. You may need a repeat X-ray or other tests. Call 911 Call for emergency care if any of the following occur: Trouble breathing Confused Very drowsy or trouble awakening Fainting or loss of consciousness Rapid or very slow heart rate Loss of bowel or bladder control When to seek medical advice Call your healthcare provider right away if any of the following occur: Pain gets worse or spreads to your arms or legs Weakness or numbness in one or both arms or legs Numbness in the groin or genital area Date Last Reviewed: 08/25/201519993209-2986 [employer]. [address] [place] [address]. All [facility] reserved. This information is not intended as a substitute for professional medical care. Always follow your healthcare professional's instructions. documented in this encounter Progress Notes Nas Leahy MD - 09/16/2016 1:30 PM PDT Subjective: Patient ID: Pepper Hand is a 56 y.o. female. 3 days ago, patient fell down some cement stairs at her home, and twisted her back in the process. She has had back pains in t he past, usually transient strain. Currently she has pain primarily in the right side of he r low back, with some burning and tingling in the right anterior thigh to the knee. No loss of bowel or bladder control. She has chronic depression and bipolar disorder. Has taken Lexapro 20 mg once daily for a chronic medication, until she ran out 2 months ago. Depression is continuing to be an issue for her and she would like a refill on her medication. She just lost her.with the [employer] closure. HPI Patient's medications, allergies, past medical, surgical, social and family histories were obtained and reviewed as appropriate. Review of Systems no intercurrent illness. Objective: Physical Exam Constitutional: She is oriented to person, place, and time. Normally developed, adequately nourished, and not in acute distress. Does not appear acute ly ill. She moves stiffly. Musculoskeletal: Back: Straight leg raising test is positive on the right, producing pain in the right anterior th igh with extension above 60. Flexion range of motion adequate to 45. Lateral bending is reduced by spasm and pain to 10 each side. Interestingly, her extension strength is weak at the left foot and ankle. Leg extension st rength is normal. Deep tendon reflexes are symmetrical and adequate bilaterally. Neurological: She is alert and oriented to person, place, and time. She displays normal ref lexes. She exhibits normal muscle tone. Coordination normal. Psychiatric: She has a normal mood and affect. Her behavior is normal. Judgment and thought content normal. She does not have a depressed affect. Assessment: Back strain, with radiculitis, right Chronic depression Plan: Due to her medication intolerances, she is limited to plain Tylenol to take for pain. She does not tolerate NSAID S. Methocarbamol 500 mg at bedtime is prescribed for 1 week with 1 refill. She understands that protection of her back will likely bring resolution of her sym ptoms. Lexapro 20 mg is refilled for her for 30 days with 2 refills. Discussed finding another pr imary physician. This note was dictated using [employer] voice recognition software. Occasional wrong- word or sound-alike substitutions may have occurred due to the inherent limitations of voice recogni tion software. Please read the chart carefully and recognize, using context, where these land bstitutions have occurred. documented in this enc ounter Plan of Treatment Not on filedocumented as of this encounter Visit Diagnoses + + | Diagnosis | + + | Lumbar strain, initial encounter - Primary | + + | Chronic depression Depressive disorder, not elsewhere classified | + + documented in this encounter
--- OUTSIDE RECORDS SUMMARY | ~2019-02-03 | XMS | Encounter Summary ---
Demographics + + + | Address | [address] | | | [place] [address] | + + + | Home Phone | | + + + | Preferred Language | Unknown | + + + | Marital Status | | + + + | Yazidism Affiliation | 1041 | + + + | Race | Unknown | + + + | Ethnic Group | Unknown | + + + Author + + + | Author | [facility] | | | and Samirana | + + + | Organization | [facility] | | | and Samirana | + [...] Team Providers + +------+ + | Care Email Marketer Name | Role | Phone | + +------+ + | Scot Anton MD | PCP | | + +------+ + Reason for Visit + + + | Reason | Comments | + + + | TCM - Hosp FU | she was told it was due to COPD but she thinks it was pneumonia | + + + | COPD | | + + + | Shortness of Breath | still complains of some SOB | + + + Encounter Details +--------+---------+ + + + | Date | Type | Department | Care Team | Description | +--------+---------+ + + + | 12/30/ | Office | [facility] | Scot Anton, | Chronic obstructive | | 2019 | Visit | [facility] [place] | [address] | pulmonary disease, | | | | [address] | [place] | unspecified COPD | | | | [place] | [id number] | type ([facility]) (Primary | | | | [address] | | Dx); Essential | | | | [phone] | | hypertension; | | | | [...] | | | | | encounter | +--------+---------+ + + + Social History [...] Instructions Patient Instructions Scot Anton MD - 12/30/2018 11:30 AM PDTKeep up the good work! Best wishes finding housing. Establish with psychiatry this week as planned documented in this encounter Progress Notes Scot Anton MD - 12/30/2018 11:30 AM PDTFormatting of this note might be different fr om the original. Subjective: Patient ID: Pepper Hand is a 58 y.o. female who is here today for TCM - Hosp FU (she was told it was due to COPD but she thinks it was pneumonia); COPD; and Shortness o f Breath (still complains of some SOB) HPI She was admitted to [facility] for COPD exacerbation. Treated with steroids and z-karen. Sh jr is breathing much better since discharge. She is using albuterol less than daily. She is using Symbicort and Spiriva as prescribed. No fever, SOB, hemoptysis, CP. She is down to 2 cigarettes per day. She is walking daily for exercise. She occasionally has difficulty judging height when stepping up with her right foot and satish t can trip on curb. Mild right sided back pain that does not radiate. Mild right knee pain . She's fallen 2-3 times. No head injury, loss of consciousness, weakness, slurred speech, paresthesias. She continues to be homeless. [employer] put her in a hotel through January 17. She is working with [employer], and [employer] for housing. She is not taking depakote. She is concerned about having adverse side effects while she i s homeless. Despite this her mood is holding up ok. She continues Lexapro as prescribed. No SI/HI. Appointment with psychiatry rescheduled for January 03 (missed 12/19 apt due to ad mission). Patient's medications, allergies, past medical, surgical, social and family histories were obtained and reviewed as appropriate. Current Outpatient Medications on File Prior to Visit Medication Sig Dispense Refill albuterol (PROAIR HFA) 90 mcg/puff inhaler Inhale 2 puffs into the lungs every 4 hours as needed for Wheezing or Shortness of Breath. 18 g 5 aspirin 81 MG tablet Take 1 tablet by mouth Daily. 30 tablet 1 atenolol (TENORMIN) 25 mg tablet Take 1 tablet by mouth Daily. 90 tablet 1 budesonide-formoterol (SYMBICORT) 160-4.5 mcg/puff inhaler Inhale 2 puffs into the lung s 2 times daily. Maintenance inhaler 1 Inhaler 2 divalproex (DEPAKOTE ER) 500 mg 24 hr tablet Take 1 tablet by mouth Daily. To stabilize mood. Start once 250 mg pills completed (Patient not taking: Reported on 12/30/2018) 30 tab let 0 escitalopram (LEXAPRO) 20 mg tablet Take 1 tablet by mouth Daily. To help mood and anxi ety 90 tablet 1 hydrOXYzine hydrochloride (ATARAX) 25 mg tablet Take 1-2 tablets by mouth every 8 hours as needed for Anxiety. 30 tablet 2 loratadine (CLARITIN) 10 mg tablet Take 1 tablet by mouth Daily. 30 tablet 0 omeprazole (PRILOSEC) 20 mg capsule Take 20 mg by mouth Daily as needed for Heartburn. 1 tiotropium (SPIRIVA HANDIHALER) 18 mcg inhalation capsule inhale contents of 1 capsule by mouth once daily 90 capsule 1 Review of Systems Objective: BP 134/78 | Pulse 58 | Temp 36.5 C (97.7 F) (Temporal) | Resp 20 | Wt 68.1 kg (150 lb 2.1 oz) | LMP (LMP Unknown) | SpO2 95% | BMI 27.46 kg/m Physical Exam Constitutional: She is oriented to person, place, and time. Very pleasant, well developed, NAD Cardiovascular: Normal rate, regular rhythm, normal heart sounds and intact distal pulses. Exam reveals no gallop and no friction rub. No murmur heard. Pulmonary/Chest: Breath sounds normal. No respiratory distress. She has no wheezes. She has no rales. Musculoskeletal: She exhibits no edema. No spinal, paraspinal, knee tenderness Full ROM of knees No effusion, palpable cords Knee flexion 4/5 on right limited by pain on active testing. Ext 5/5. Left knee flex/ext 5/5 But she is able to squat, waddle without assistance. Ankle flex/ext 5/5 bilaterally Neurological: She is alert and oriented to person, place, and time. No cranial nerve defici t. Neg straight leg raise DTRs: Patella 2+, Achilles 2+ symmetric Sensation to light touch intact in LE's Assessment & Plan: 1. Chronic obstructive pulmonary disease, unspecified COPD type (HCC): Much improved. Hos pital records reviewed. - Quit smoking - albuterol (PROAIR HFA) 90 mcg/puff inhaler; Inhale 2 puffs into the lungs every 4 hours a s needed for Wheezing or Shortness of Breath. Dispense: 18 g; Refill: 5 - budesonide-formoterol (SYMBICORT) 160-4.5 mcg/puff inhaler; Inhale 2 puffs into the lungs 2 times daily. Maintenance inhaler Dispense: 1 Inhaler; Refill: 2 - tiotropium (SPIRIVA HANDIHALER) 18 mcg inhalation capsule; inhale contents of 1 capsule b y mouth once daily Dispense: 90 capsule; Refill: 1 2. Essential hypertension - atenolol (TENORMIN) 25 mg tablet; Take 1 tablet by mouth Daily. To lower blood pressure a nd heart rate Dispense: 90 tablet; Refill: 1 3. Depression with anxiety, Bipolar 1: h/o mike. Also with PTSD. SI resolved. Complica stas by homelessness She previously tried at least: hydroxyzine, buspirone, bupropion, trazo done, citalopram, Zoloft, Effexor, Abilify, Haldol. Denies substance abuse. - escitalopram (LEXAPRO) 20 mg tablet; Take 1 tablet by mouth Daily. To help mood and anxie ty Dispense: 90 tablet; Refill: 1 - hydrOXYzine hydrochloride (ATARAX) 25 mg tablet; Take 1-2 tablets by mouth every 8 hours as needed for Anxiety. Dispense: 30 tablet; Refill: 2 - Establish with psychiatry as planned 5. Gastroesophageal reflux disease, esophagitis presence not specified, Dill's esophagus without dysplasia: Last EGD over 5 years ago. She declines f/u at this time. - omeprazole (PRILOSEC) 20 mg capsule; Take 1 capsule by mouth every morning (before breakf ast). For heartburn Dispense: 90 capsule; Refill: 1 7. Fall, initial encounter: Reassuring exam. I do not think she's had a stroke or signifi cant lumbar radiculopathy. - Discussed PT, she declines - Educated on warning signs and will monitor Return in about 1 month (around 01/30/2019). Transitional care management plan Verified communication made/attempted [...] rationale for treatment and assessed adherence. Referrals: she has appointment with psychiatry Community resources identified for patient/caregivers: is working with social work [facility] housing needs Durable medical equipment ordered: None needed Additional communication delivered/planned Family/caregiver: JOSE Anton MD documented in this e ncounter Plan of Treatment Not on filedocumented as of this encounter Visit Diagnoses + + | Diagnosis | + + | Chronic obstructive pulmonary disease, unspecified COPD type (HCC) - Primary | + + | Essential hypertension Unspecified essential hypertension | + + | Depression with anxiety Dysthymic disorder | + + | Anxiety Anxiety state, unspecified | + + | Gastroesophageal reflux disease, esophagitis presence not specified | + + | Dill's esophagus without dysplasia Dill's esophagus | + + | Fall, initial encounter | + + documented in this encounter"
--- OUTSIDE RECORDS SUMMARY | ~2019-02-03 | XMS | Encounter Summary ---
Demographics + + + | Address | [address] | | | [place] [address] | + + + | Home Phone [...] Team Providers + +------+ + | Care Collet Maker Name | Role | Phone | [...] + + | Closed | Specialty | Physical | Diagnoses | Sloane, | Stefani | | | Services | Therapy / | Acute pain | Scot Flowers MD | Gar[facility] Lloyd [facility] | | | Required | Rehabilitatio | of right | [address] | [address] | | | | n | shoulder | [address] [place] | [address] [place] | | | | | Procedures | [place] | [place] | | | | | [place] | [address] | [address] Phone: | | | | | | Phone: | [phone] | | | | | | [phone] | Fax: | | | | | | Fax: | [phone] | | | | | | [phone] | | +--------+ + + + + + Reason for Visit + + + | Reason | Comments | + + + | Shoulder Pain | | + + + Encounter Details +--------+ + + + + | Date | Type | Department | Care Team | Description | +--------+ + + + + | 03/14/ | Telephone | [facility] | Scot Anton, | Shoulder Pain | | 2018 | | [facility] [place] | [address] | | | | | [address] | [place] | | | | | [place] | [address] | | | | | [address] | | | | | | [phone] | | | +--------+ + + + [...] of this encounter Plan of Treatment + + +--------+ + + | Name | Type | Priori | Associated Diagnoses | Order Schedule | | | | ty | | | + + +--------+ + + | * [facility] | Outpatient | Routin | Acute pain of | Ordered: 03/14/2018 | | Therapy - AMB | Referral | e | right shoulder | | | Referral | | | | | + + +--------+ + + documented as of this encounter Visit Diagnoses + + | Diagnosis | + + | Acute pain of right shoulder - Primary | + + documented in this encounter"
--- OUTSIDE RECORDS SUMMARY | ~2019-02-03 | XMS | Encounter Summary ---
Demographics + + + | Address | [address] | | | [place] [address] | + + + | Home Phone | | + + + | Preferred Language | Unknown | + + + | Marital Status | | + + + | Rastafari Affiliation | 1041 | + + + | Race | Unknown | + + + | Ethnic Group | Unknown | + + + Author + + + | Author | [facility] | | | and Samirana | + + + | Organization | [facility] | | | [...] Team Providers + +------+ + | Care Dry Cleaner Helper Name | Role | Phone | + +------+ + PCP | Unavailable | + +------+ + Encounter Details +--------+ + + + + | Date | Type | Department | Care Team | Description | +--------+ + + + + | 02/24/ | Hospital | [facility] | Pepper Kamara | | | 2008 | Encounter | MED CTR XRAY [address] | L, CREW SUPERVISOR [address] | | | | | [place] | [place] | | | | | [place] [address] | [id number] | | | | | [phone] | | | +--------+ + + + [...]
--- OUTSIDE RECORDS SUMMARY | ~2019-02-03 | XMS | Encounter Summary ---
Demographics + + + | Address | [address] | | | [place] [address] | + + + | Home Phone | | + + + | Preferred Language | Unknown | + + + | Marital Status | | + + + | Scientology Affiliation | 1041 | + + + | Race | Unknown | + + + | Ethnic Group | Unknown | + + + Author + + + | Author | [facility] | | | and Samirana | + + + | Organization | [facility] | | | and [...] Team Providers + +------+ + | Care Freezer Worker Name | Role | Phone | + +------+ + PCP | Unavailable | + +------+ + Encounter Details +--------+ + + + + | Date | Type | Department | Care Team | Description | +--------+ + + + + | 05/21/ | Hospital | [facility] | Carmen Marquez | | | 2007 | Encounter | MED CTR EMERGENCY | Marisol Brand MD [address] | | | | | [place] [address] | [facility] | | | | | [place] | [place] [address] | | | | | [address] | [phone] | | | | | [phone] | | | +--------+ + + + [...]
--- OUTSIDE RECORDS SUMMARY | ~2019-02-03 | XMS | Encounter Summary ---
Demographics + + + | Address | [address] | | | [place] [address] | + + + | Home Phone [...] Team Providers + +------+ + | Care Heavy Equipment Rental Associate Name | Role | Phone | + [...] + + | 02/02/ | Office | [facility] | Scot Anton, | Abdominal pain, left | | 2017 | Visit | [facility] [place] | [address] | upper quadrant | | | | [address] | [place] | (Primary Dx); | | | | [place], [place] | [address] | Gastroesophageal | | | | [address] | | reflux disease, | | | | [phone] | | esophagitis presence | | | | | | not specified; | | | | | | Anxiety; Need for | | | | | | tyyhwisnrx-dtwcdmb-a | | | | | | ertussis [...] office, 12 04, crisis line , or [phone], or go to the ER. Or you can text the crisi s line at: [phone] Or chat online at: [email or web address]e.org/gethelp/lifelinech at.aspx Unknown [...] in the next 24 hours. Call 911 [email or web address] if any of these occur: Trouble breathing [...] and are getting dehydrated Date Last Reviewed: 03/24/201519997052-0118 [employer]. [address] [place] [address], [place] [address]. All righ ts reserved. This information is [...] To help mood and anxiety Need for xdnojtgooz-mqusjmx-wsouspgom (Tdap) vaccine, adult/adolescent - Tdap vaccine greater than or equal to 7yo IM [37041] Need for 23-polyvalent pneumococcal polysaccharide vaccine - Pneumococcal polysaccharide vaccine 23-valent greater than or equal to 2yo subcutaneo us/IM [65522] Return in about 1 month (around 03/04/2017), [...] [address] | [place] | [phone] | | [facility] | | [address] | | | - LABORATORY | | | | + + + + + documented in this encounter Visit Diagnoses + + | Diagnosis | + + | Abdominal pain, left upper quadrant - Primary | + + | Gastroesophageal reflux disease, esophagitis presence not specified | + + | Anxiety Anxiety state, unspecified | + + | Need for cohnmfosgh-ijxvywj-slcfnkxzj (Tdap) vaccine, adult/adolescent Need for | | prophylactic vaccination with combined yyegfmpkxa-bnqbowl-rjetqdnqv (DTP) vaccine | + + | Need for 23-polyvalent pneumococcal polysaccharide vaccine | + + documented in this encounter
--- OUTSIDE RECORDS SUMMARY | ~2019-02-03 | XMS | Encounter Summary ---
Demographics + + + | Address | [address] | | | [place] [address] | + + + | Home Phone | | + + + | Preferred Language | Unknown | + + + | Marital Status | | + + + | Hoahaoism Affiliation | 1041 | + + + | Race | Unknown | + + + | Ethnic Group | Unknown | + + + Author + + + | Author | [facility] | | | and Samirana | + + + | Organization | [facility] | | | [...] Team Providers + +------+ + | Care Principal Bioinformatics Specialist Name | Role | Phone | + +------+ + | Scot Anton MD | PCP | | + +------+ + Reason for Visit + + + | Reason | Comments | + + + | Shortness of Breath | | + + + Encounter Details +--------+ + + + + | Date | Type | Department | Care Team | Description | +--------+ + + + + | 01/20/ | Emergency | [facility] | Trixie, | COPD with acute | | 2018 | | [facility] EM[facility] | Sukhjinder Magana MD [address] | exacerbation (HCC) | | | | CENTER [address] | [address] [place] | (Primary Dx) | | | | [place], [place] | [place] [address] | | | | | [address] | [phone] | | | | | [phone] | | | +--------+ + + + [...] + + + | Blood Pressure | 138/92 | 01/20/2018 4:33 PM | | | | | PDT | | + + + + + | Pulse | 71 | 01/20/2018 6:13 PM | | | | | PDT | | + + + + + | Temperature | 36.4 C (97.6 F) | 01/20/2018 4:33 PM | | | | | PDT | | + + + + + | Respiratory Rate | 30 | 01/20/2018 5:20 PM | | | | | PDT | | + + + + + | Oxygen Saturation | 91% | 01/20/2018 6:13 PM | | | | | PDT | | + + + + + | Inhaled Oxygen | - | - | | | Concentration | | | | + + + + + | Weight | 68 kg (150 lb) | 01/20/2018 4:33 PM | | | | | PDT | | + + + + + | Height | 157.5 cm (5' 2") | 01/20/2018 4:33 PM | | | | | PDT | | + + + + + | Body Mass Index | 27.44 | 01/20/2018 4:33 PM | | | | | PDT | | + + + + + documented in this encounter Discharge Instructions Sukhjinder Lynn MD - 01/20/2018Take prednisone as prescribed Use your breathing treatments regularly If you develop worsening cough or fever, start antibiotics documented in this encounter Medications at Time [...] tablet by | 30 | 0 | 10/13/19 | | | (TENORMIN) 25 mg | mouth daily | tablet | | 18 | 8 | | tablet | | | | | | + + + +---------+ + + | azithromycin | Take 2 tablets by | 6 | 0 | 01/21/20 | | | (ZITHROMAX) 250 mg | mouth daily x 1 day, | tablet | | 18 | 8 | | tablet | then take 1 tablet | | | | | | | by mouth daily x 4 | | | | | | | days. | | | | | [...] tablet by | 30 | 2 | 11/02/19 | | | tabletIndications: | mouth Daily. To help | tablet | | 18 | 8 | | Depression with | mood | | | | | | anxiety | | | | | | + + + +---------+ + + | loratadine | take 1 tablet by | 30 | 2 | 06/26/19 | | | (CLARITIN) 10 mg | mouth daily | tablet | | 18 | 9 | | tablet | | | | | | + + + +---------+ + + | omeprazole | take 1 capsule by | 30 | 2 | 09/13/19 | | | (PRILOSEC) 20 mg | mouth every morning | capsule | | 18 | 8 | | capsule | before BREAKFAST | | | | | + + + +---------+ + + | predniSONE | Take 60 mg po qd x 3 | 60 | 0 | 01/22/20 | | | (DELTASONE) 10 mg | days, then 40 mg po | tablet | | 18 | 8 | | tablet | qd x 3 days, then | | | | | | | 20 mg po qd x 3 | | | | | | | days, then 10 mg po | | | | | | | qd x 3 days. Disp | | | | | | | suff quant. | | | | | + + + +---------+ + + | VENTOLIN HFA 108 | inhale 2 puffs by | 18 g | 3 | 12/11/19 | | | (90 Base) MCG/ACT | mouth every 4 hours | | | 18 | 9 | | inhaler | if [...] XR CHEST AP PORTABLE | STAT | 01/20/2018 | | Results for this | | | | 6:11 PM | | procedure are in the | | | | PDT | | results section. | + +--------+ + + + documented in this encounter Results XR Chest AP Portable (01/20/2018 6:11 PM PDT) + + | Specimen | + + | | + + + + + | Narrative | Performed At | + + + | XR CHEST AP PORTABLE 01/20/2018 6:01 PM HISTORY: Dyspnea, cough, | [facility] | | copd. COMPARISON: 12/23/2015 Findings: The bilateral lungs | | | are clear with no evidence for pleural effusion or pneumothorax. | | | Heart size is within normal limits. Pulmonary vasculature is within | | | normal limits. Aorta is normal. Mediastinum is unremarkable. No acute | | | osseous or soft tissue abnormality identified. IMPRESSION - No | | | acute intrathoracic abnormality identified. Stable mild pulmonary | | | hyperinflation. Dictated and Signed by: Fabian Jackson MD | | | Electronically signed: 01/21/2018 8:35 AM | | + + + + + | Procedure Note | + + | Jhoan, Rad Results In - 01/21/2018 8:39 AM PDT XR CHEST AP PORTABLE 01/20/2018 6:01 PM | | | | HISTORY: Dyspnea, cough, copd. | | | | COMPARISON: 12/23/2015 | | | | Findings: | | The bilateral lungs are clear with no evidence for pleural effusion or | | pneumothorax. Heart size is within normal limits. Pulmonary vasculature is | | within normal limits. Aorta is normal. Mediastinum is unremarkable. No acute | | osseous or soft tissue abnormality identified. | | | | IMPRESSION - | | No acute intrathoracic abnormality identified. | | | | Stable mild pulmonary hyperinflation. | | | | Dictated and Signed by: Fabian Jackson MD | | Electronically signed: 01/21/2018 8:35 AM | + + + +---------+ + [...] +-------+------+------+ | albuterol-ipratropium 2.5-0.5 | Given | 01/21/20 | 3 mLs | | | | mg/3 mL nebulizer solution 3 mL | | 18 5:16 | | | | | 3 mL, Nebulization, RT Once, Sun | | PM PDT | | | | | 01/20/18 at 1715, For 1 dose | | | | | | + +--------+ +-------+------+------+ +---+---+ | | | +---+---+ + +-------+ +-------+---+---+ | predniSONE (DELTASONE) tablet | Given | 01/21/20 | 60 mg | | | | 60 mg 60 mg, Oral, ONCE, Sun | | 18 6:18 | | | | | 01/20/18 at 1815, For 1 dose | | PM PDT | | | | + +-------+ +-------+---+---+ +---+---+ | | | +---+---+ documented in this encounter
--- OUTSIDE RECORDS SUMMARY | ~2019-02-03 | XMS | Encounter Summary ---
Demographics + + + | Address | [address] | | | [place] [address] | + + + | Home Phone | | + + + | Preferred Language | Unknown | + + + | Marital Status | | + + + | Pentecostalism Affiliation | 1041 | + + + | Race | Unknown | + + + | Ethnic Group | Unknown | + + + Author + + + | Author | [facility] | | | and Samirana | + + + | Organization | [facility] | | | [...] Team Providers + +------+ + | Care Pattern Room Attendant Name | Role | Phone | [...] mattress. Hurts to lift her arm. 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 [address] [place] [address], [place] [address]. All righ ts reserved. This information is [...] the stretch. Try to hold the stretch [id number]. 3. Work up to [id number] of this stretch,3times a day. Work up [...] to ask your doctor. Date Last Reviewed: 05/24/201719990565-2682 [employer]. [address] [place] [address], [place] [address]. All righ ts reserved. This information is [...] your healthcare provider: Stand with your shoulder [id number] from the wall. Raise your arm to shoulder level and gently walk your fingers up the wall as high as you can. Hold for a few seconds. Then walk your fingers back down. Repeat 3times. Move closer to the wall as you repeat. Build up to holding each stretch [id number]. Caution:Do this stretch only if your healthcare provider recommends it. Don t do it whe n you are first injured. Date Last Reviewed: 05/24/201719990831-1272 [employer]. [address] [place] [address]. All righ ts reserved. This information is [...] Route Intramuscular Administered By Pretty Duval LPN cSot Anton M D - 03/04/2018 10:00 AM PST Subjective: Patient ID: Pepper Hand is a 57 y.o. female who is here today for Anxiety (states that the anxiety level is off the scale. Medication doesn't seem to be helping.) and Shoul karol Pain (complains of right shoulder pain. Injured it Sunday when she moved a mattress. H urts to lift her arm. 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
--- OUTSIDE RECORDS SUMMARY | ~2019-02-03 | XMS | Encounter Summary ---
Demographics + + + | Address | [address] | | | [place] [address] | + + + | Home Phone [...] Team Providers + +------+ + | Care Otter Trawler Boatswain Name | Role | Phone | + +------+ + | Pepper Kamara | PCP | | + +------+ + Encounter Details +--------+ + + + + | Date | Type | Department | Care Team | Description | +--------+ + + + + | 11/23/ | [facility] | [facility] | Pepper Kamara | | | 2011 | Encounter | MED CTR LABORATORY | NAVNEET Guerrero [address] | | | | | [address] | [place] | | | | | [place] | [address] | | | | | [address] | | | | | | [phone] | | | +--------+ + + + [...] + | [facility] | [address] | [place], [place] | [phone] | | [facility] | | [address] | | | - LABORATORY | | | | + + + + + | [facility] | [address] | [place], [place] | | | [facility] | | [address] | | | - LABORATORY | | [...] - 1.030 | [facility] | | | [place] | | | [facility] | | [...] + | [facility] | [address] | [place], [place] | [phone] | | [facility] | | [address] | | | - LABORATORY | | | | + + + + + | [facility] | [address] | [place], [place] | | | [facility] | | [address] | | | - LABORATORY | | [address] | [place] | [phone] | | [facility] | | [address] | | | - LABORATORY | | | | + + + + + | [facility] | [address] | [place] | | | [facility] | | [address] | | | - LABORATORY | | [...] + | [facility] | [address] | [place] | [phone] | | [facility] | | [address] | | | - LABORATORY | | | | + + + + + | [facility] | [address] | [place] | | | [facility] | | [address] | | | - LABORATORY | | | | + + + + + documented in this encounter Visit Diagnoses Not on filedocumented in this encounter"
--- OUTSIDE RECORDS SUMMARY | ~2019-02-03 | XMS | Encounter Summary ---
Demographics + + + | Address | [address] | | | [place] [address] | + + + | Home Phone [...] Team Providers + +------+ + | Care Lie Detector Operator Name | Role | Phone | [...] + | 03/18/ | Telephone | [facility] | Scot Anton, | Medication Prior | | 2018 | | [facility] [place] | [address] | Authorization | | | | [address] | [place] | (Diclofenac Gel 1%) | | | | [place] | [address] | | | | | [address] | | | | | | [phone] | | | +--------+ + + + [...]
--- OUTSIDE RECORDS SUMMARY | ~2019-02-03 | XMS | Encounter Summary ---
Demographics + + + | Address | [address] | | | [place] [address] | + + + | Home Phone | | + + + | Preferred Language | Unknown | + + + | Marital Status | | + + + | Roman Catholic Affiliation | 1041 | + + + | Race | Unknown | + + + | Ethnic Group | Unknown | + + + Author + + + | Author | [facility] | | | and [place]ir[place] | + + + | Organization | [facility] | | | [...] Team Providers + +------+ + | Care Mica Spreader Name | Role | Phone | + [...] [place] | | | | | | [address] | | | | | | [phone] | | | +--------+ + + + [...]
--- OUTSIDE RECORDS SUMMARY | ~2019-02-03 | XMS | Encounter Summary ---
Demographics + + + | Address | [address] | | | [place] [address] | + + + | Home Phone [...] Team Providers + +------+ + | Care Guest Services Assistant Name | Role | Phone | + +------+ + | Scot Anton MD | PCP | | + +------+ + Encounter Details +--------+---------+ + + + | Date | Type | Department | Care Team | Description | +--------+---------+ + + + | 03/16/ | Surgery | [facility] | Dick Medina MD | EGD | | 2017 | | MED CTR MP INTRA OP | [address], [place] | | | | | [address] | [address] [place] | | | | | [place], [place] | [id number] | | | | | [address] | | | | | | [phone] | | | +--------+---------+ + + + [...]
--- OUTSIDE RECORDS SUMMARY | ~2019-02-03 | XMS | Encounter Summary ---
Demographics + + + | Address | [address] | | | [place] [address] | + + + | Home Phone [...] Team Providers + +------+ + | Care Field Technical Support Consultant Name | Role | Phone | + +------+ + PCP | Unavailable | + +------+ + Encounter Details +--------+ + + + + | Date | Type | Department | Care Team | Description | +--------+ + + + + | 01/29/ | Hospital | [facility] | Pepper Kamara | | | 2008 | Encounter | MED CTR LABORATORY | L, CHIEF OF PLANNING [address] | | | | | [address] | [place] | | | | | [place] | [address] | | | | | [address] | | | | | | [phone] | | | +--------+ + + + [...]
--- OUTSIDE RECORDS SUMMARY | ~2019-02-03 | XMS | Encounter Summary ---
Demographics + + + | Address | [address] | | | [place] [address] | + + + | Home Phone [...] Team Providers + +------+ + | Care Expert Witness Name | Role | Phone | + [...] Description | +--------+--------+ + + + | 06/24/ | Refill | [facility] [place] [facility] | Scot Anotn, | Medication Refill | | 2018 | | [facility] | [address] | | | | | [address] | [place] | | | | | [place] | [address] | | | | | [address] | | | | | | [phone] | | | +--------+--------+ + + + [...]
--- OUTSIDE RECORDS SUMMARY | ~2019-02-03 | XMS | Encounter Summary ---
Demographics + + + | Address | [address] | | | [place] [address] | + + + | Home Phone [...] Team Providers + +------+ + | Care Recording Artist Name | Role | Phone | + [...] | | | | [place] | [address] | | | | | [address] | | | | | | [phone] | | | +--------+ + + + [...]
--- OUTSIDE RECORDS SUMMARY | ~2019-02-03 | XMS | Encounter Summary ---
Demographics + + + | Address | [address] | | | [place] [address] | + + + | Home Phone [...] Team Providers + +------+ + | Care Bread Dough Mixer Name | Role | Phone | [...] + + | 12/30/ | Office | [facility] | Scot Anton, | Chronic obstructive | | 2019 | Visit | [facility] [place] | [address] | pulmonary disease, | | | | [address] | [place] | unspecified COPD | | | | [place] | [address] | type ([facility]) (Primary | | | | [address] | | Dx); Essential | | | | [phone] | | hypertension; | | | | [...] some SOB) HPI She was admitted to [facility] for COPD exacerbation. Treated with steroids and [...] through January 17. She is working with [employer], and [employer] for housing. She is not taking depakote. 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
--- OUTSIDE RECORDS SUMMARY | ~2019-02-03 | XMS | Encounter Summary ---
Demographics + + + | Address | [address] | | | [place] [address] | + + + | Home Phone [...] Providers + +------+ + | Care Manager Pharmacy Name | Role | Phone | + [...] | 2016 | Changes | GASTROENTEROLOGY | [facility] | | | | | [address] | | | | | | [address] [place] | | | | | | [address] | | | | | | [phone] | | | +--------+ + + + [...]
--- OUTSIDE RECORDS SUMMARY | ~2019-02-03 | XMS | Encounter Summary ---
Demographics + + + | Address | [address] | | | [place] [address] | + + + | Home Phone [...] Team Providers + +------+ + | Care Cartographic Engineer Name | Role | Phone | + +------+ + | Pepper Kamara | PCP | | + +------+ + Encounter Details +--------+ + + + + | Date | Type | Department | Care Team | Description | +--------+ + + + + | 08/13/ | Hospital | [facility] | Darling Lobo | | | 2011 | Encounter | MED CTR EMERGENCY | DO Chidi Marks | | | | | [place] [address] | [place], [place] | | | | | [place], [place] | [address] | | | | | [address] | | | | | | [phone] | | | +--------+ + + + [...]
--- OUTSIDE RECORDS SUMMARY | ~2019-02-03 | XMS | Encounter Summary ---
Demographics + + + | Address | [address] | | | [place] [address] | + + + | Home Phone [...] Team Providers + +------+ + | Care Aerodynamic Consultant Name | Role | Phone | [...] | +--------+ + + + + | 08/22/ | Telephone | [facility] [place] [facility] | Scot Anton, | Results | | 2019 | | [facility] [place] | [address] | | | | | [address] | [place] | | | | | [place] | [address] | | | | | [address] | | | | | | [phone] | | | +--------+ + + + [...]
--- OUTSIDE RECORDS SUMMARY | ~2019-02-03 | XMS | Encounter Summary ---
Demographics + + + | Address | [address] | | | [place] [address] | + + + | Home Phone [...] Providers + +------+ + | Care Field Service Consultant Name | Role | Phone | + +------+ + PCP | Unavailable | + +------+ + Encounter Details +--------+ + + + + | Date | Type | Department | Care Team | Description | +--------+ + + + + | 08/04/ | Hospital | [facility] | Darling Lobo | | | 2012 | Encounter | MED CTR EMERGENCY | DO Chidi Marks | | | | | [place] [address] | [facility] | | | | | [place] | [address] | | | | | [address] | | | | | | [phone] | | | +--------+ + + + [...] | | 12 | 7 | | [address] UNITS capsule | mouth once weekly | | | | | | | for 12 weeks | | | | | + + + +---------+ + + | ergocalciferol | Take one capsule | 19 | 0 | 12/22/19 | | | (ERGOCALCIFEROL) | daily for 7 days, | capsule | | 12 | 6 | | [address] UNITS capsule | then take one | [...] | | Urine | | | [facility] | | | | | | MEDICAL | | | | | | CENTER - | | | | | | LABORATORY | | + + + + + + | Specific | <=1.005 | 1.001 - 1.030 | [facility] | | | [place] | | | [facility] | | [...] + | [facility] | [address] | [place], [place] | [phone] | | [facility] | | [address] | | | - LABORATORY | | | | + + + + + | [facility] | [address] | [place], [place] | | | [facility] | | [address] | | | - LABORATORY | | | | + + + + + documented in this encounter Visit Diagnoses Not on filedocumented in this encounter"
--- OUTSIDE RECORDS SUMMARY | ~2019-02-03 | XMS | Encounter Summary ---
Demographics + + + | Address | [address] | | | [place] [address] | + + + | Home Phone | | + + + | Preferred Language | Unknown | + + + | Marital Status | | + + + | Jain Affiliation | 1041 | + + + [...] Team Providers + +------+ + | Care Chemical Test Engineer Name | Role | Phone | [...] | | | | CENTER [address] | [place] | (Primary Dx) | | | | [place] | [address] | | | | | [address] | | | | | | [phone] | | | +--------+ + + + [...] Everywhere.Coping Tips for Caregivers, Chronic Lung Disease: (Wolof)documented in this encounter Medications at Time of [...] | mL/min/1.73m2 | [facility] | | | MONEGASQUE | RATE,ESTIMATED | | MEDICAL | | | | mL/min/1.44h2Xdhw than | | CENTER - | | [...] [address] | [place] | [phone] | | [facility] | | [address] | | | - LABORATORY | | [...] [address] | [place] | [phone] | | [facility] | | [address] | | | - LABORATORY | | [...]
--- OUTSIDE RECORDS SUMMARY | ~2019-02-03 | XMS | Encounter Summary ---
Demographics + + + | Address | [address] | | | [place] [address] | + + + | Home Phone [...] Team Providers + +------+ + | Care Aircraft Refueler Name | Role | Phone | + [...] | 03/25/ | Telephone | [facility] [place] [facility] | Scot Anton, | Medication Prior | | 2018 | | [facility]ICINE [place] | [address] | Authorization | | | | [address] | [place] | | | | | [place] | [address] | | | | | [address] | | | | | | [phone] | | | +--------+ + + + [...]
--- OUTSIDE RECORDS SUMMARY | ~2019-02-03 | XMS | Encounter Summary ---
Demographics + + + | Address | [address] | | | [place] [address] | + + + | Home Phone | | + + + | Preferred Language | Unknown | + + + | Marital Status | | + + + | Presybeterian Affiliation | 1041 | + + + | Race | Unknown | + + + | Ethnic Group | Unknown | + + + Author + + + | Author | [facility] | | | and Samirana | + + + | Organization | [facility] | [...] Team Providers + +------+ + | Care Motorcycle Subassembly Repairer Name | Role | Phone | [...] | | disease, | [place], [place] | [place] | | | | | unspecified | [address] | [place] | | | | | COPD type | Phone: | [address] | | | | | ([facility]) | [phone] | Phone: | | | | | Procedures | Fax: | [phone] | | | | | Pulmonary | [phone] | Fax: | | | | | | | [phone] | +--------+ + + + + + [...] | | 2019 | Visit | [facility]IC[facility] [place] | [address] | pulmonary disease, | | | | [address] | [place] | unspecified COPD | | | | [place] | [address] | type (HCC) (Primary | | | | [address] | | Dx); Dog bite, | | | | [phone] | | initial encounter; | | | [...] Hours: Sunday-Sunday 7 am to 5:30 pm [place] [address] [place] [address] [place] [address] [facility] Saturdays & Sundays 8 am to noon [facility] (you do not have to [...]
--- OUTSIDE RECORDS SUMMARY | ~2019-02-03 | XMS | Encounter Summary ---
Demographics + + + | Address | [address] | | | [place] [address] | + + + | Home Phone | | + + + | Preferred Language | Unknown | + + + | Marital Status | | + + + | Tenriism Affiliation | 1041 | + + + | Race | Unknown | + + + | Ethnic Group | Unknown | + + + Author + + + | Author | [facility] | | | and Samirana | + + + | Organization | [facility] | | [...] Team Providers + +------+ + | Care Mining Consultant Name | Role | Phone | [...] Refill | | 2012 | | MEDICINE [place] | L, PRODUCTION CLERKS SUPERVISOR [address] | | | | | [address] | [address]VE [place] | | | | | [place] | [address] | | | | | [address] | | | | | | [phone] | | | +--------+--------+ + + + [...]
--- OUTSIDE RECORDS SUMMARY | ~2019-02-03 | XMS | Encounter Summary ---
Demographics + + + | Address | [address] | | | [place] [address] | + + + | Home Phone [...] Team Providers + +------+ + | Care Title I Director Name | Role | Phone | [...] | | | | [place] | [address] | | | | | [address] | | | | | | [phone] | | | +--------+ + + + [...]
--- OUTSIDE RECORDS SUMMARY | ~2019-02-03 | XMS | Encounter Summary ---
Demographics + + + | Address | [address] | | | [place] [address] | + + + | Home Phone [...] Providers + +------+ + | Care Manager Mass Name | Role | Phone | + [...] 04/24/2018) | | | | [address] [place] | [address] [place], [place] | | | | | [place] [address] | [address] | | | | | [phone] | | | +--------+ + + + [...]
--- OUTSIDE RECORDS SUMMARY | ~2019-02-03 | XMS | Encounter Summary ---
Demographics + + + | Address | [address] | | | [place] [address] | + + + | Home Phone [...] Team Providers + +------+ + | Care Instructor Kindergarten Name | Role | Phone | + [...] 2011 | | GASTROENTEROLOGY | [address], [place] | | | | | [address] [place] | [address] [place], [place] | | | | | [address] [place], [place] | [address] | | | | | [address] | | | | | | [phone] | | | +--------+ + + + [...]
--- OUTSIDE RECORDS SUMMARY | ~2019-02-03 | XMS | Encounter Summary ---
Demographics + + + | Address | [address] | | | [place] [address] | + + + | Home Phone [...] Providers + +------+ + | Care Community Affairs Director Name | Role | Phone | + +------+ + | Scot Anton MD | PCP | | + +------+ + Reason for Visit + + + | Reason | Comments | + + + | Medication Question | bowel prep | + + + Encounter Details +--------+ + + + + | Date | Type | Department | Care Team | Description | +--------+ + + + + | 02/26/ | Telephone | [facility] | Dick Medina MD | Medication Question | | 2017 | | GASTROENTEROLOGY | [address], [place] | (bowel prep) | | | | [address] [place] | [address] [place], [place] | | | | | [address] [place], [place] | [address] | | | | | [address] | | | | | | [phone] | | | +--------+ + + + [...]
--- OUTSIDE RECORDS SUMMARY | ~2019-02-03 | XMS | Encounter Summary ---
Demographics + + + | Address | [address] | | | [place] [address] | + + + | Home Phone [...] Providers + +------+ + | Care Sports Attorney Name | Role | Phone | + [...] [place] | | | | | | [address] | | | | | | [phone] | | | +--------+ + + + [...]
--- OUTSIDE RECORDS SUMMARY | ~2019-02-03 | XMS | Encounter Summary ---
Demographics + + + | Address | [address] | | | [place] [address] | + + + | Home Phone [...] | Organization | [facility] | | | [...] Team Providers + +------+ + | Care Blueprinter Name | Role | Phone | + [...] + | 02/26/ | Telephone | [facility] | Dick Medina MD | Medication Question | | 2017 | | GASTROENTEROLOGY | [address], [place] | (bowel prep) | | | | [address] [place] | [address] [place], [place] | | | | | [address] [place], [place] | [address] | | | | | [address] | | | | | | [phone] | | | +--------+ + + + [...]
--- OUTSIDE RECORDS SUMMARY | ~2019-02-03 | XMS | Encounter Summary ---
Demographics + + + | Address | [address] | | | [place] [address] | + + + | Home Phone [...] Team Providers + +------+ + | Care Education Liaison Name | Role | Phone | + +------+ + | Pepper Kamara | PCP | | + +------+ + Encounter Details +--------+ + + + + | Date | Type | Department | Care Team | Description | +--------+ + + + + | 03/01/ | Hospital | [facility] | Trixie, | | | 2009 | Encounter | MED CTR EMERGENCY | Sukhjinder Magana MD [address] | | | | | CENTER [address] | [address] [facility] | | | | | [place] | [place] [address] | | | | | [address] | [phone] | | | | | [phone] | | | +--------+ + + + [...]
--- OUTSIDE RECORDS SUMMARY | ~2019-02-03 | XMS | Encounter Summary ---
Demographics + + + | Address | [address] | | | [place] [address] | + + + | Home Phone [...] Team Providers + +------+ + | Care Shear Grinder Operator Name | Role | Phone | [...] | | | | | polyps | [address] | [place], [place] | | | | | | Phone: | [address] | | | | | | [phone] | Phone: | | | | | | Fax: | [phone] | | | | | | [phone] | Fax: | | | | | | | [phone] | +--------+ + + + + + [...] + + | 01/23/ | Office | [facility] | Scot Anton, | Diverticulitis of | | 2017 | Visit | MEDICINE [place] | [address] | large intestine | | | | [address] | [place], [place] | without bleeding, | | | | [place], [place] | [id number] | unspecified | | | | [address] | | complication status | | | | [phone] | | (Primary Dx); | | | [...] o office, 911, crisis line , or [phone], or go to the ER. Diverticulitis Some [...] color) Unexpected vaginal bleeding Date Last Reviewed: 11/25/201519997294-9316 [employer]. [address] [place] [address], [place] [address]. All righ ts reserved. This information is not intended as a substitute for professional medical care. Always follow your healthcare professional's instructions. documented in this encounter Progress Notes Scot Anton MD - 01/23/2017 10:30 AM PDTFormatting of this note might be different fr om the original. Subjective: Patient ID: Pepper Hand is a 56 y.o. female here for psychotic medications, [facility]. Accompanied by mother Jacquelyn. HPI She states [...] She was evaluated by Dr Pinedo at [facility] ars ago and diagnosed with PTSD, [...] leave the room as she was concerned Teller would confiscate her guns - which I [...] h/o polyps: [facility] Referral Preventative health care [...] [place] | | | | | | [address] | | | | + + + + + + + + | Specimen | + + | Blood | + + + + + + + | Performing | Address | City/State/Zipcode | Phone Number | | Organization | | | | + + + + + | [facility] | [address] | [place] [address] | [phone] | + + + + + CBC [...] + | [facility] | [address] | [place] | [phone] | | [facility] | | [address] | | | - LABORATORY | | [...] | mL/min/1.73m2 | [facility] | | | [place] | RATE,ESTIMATED | | MEDICAL | | | | mL/min/1.49p0Slib than | | CENTER - | | [...] + | [facility] | [address] | [place] | [phone] | | [facility] | | [address] | | | - LABORATORY | | [...] ST. | [address] | [place], [place] | [phone] | | [facility] | | [address] | | | - LABORATORY | | [...] care Routine general medical examination at a [facility] | | facility | + + | Need for hepatitis C screening test Special screening examination for other specified | | viral diseases | + + | Tobacco abuse Tobacco use disorder | + + documented in this encounter
--- OUTSIDE RECORDS SUMMARY | ~2019-02-03 | XMS | Encounter Summary ---
Demographics + + + | Address | [address] | | | [place] [address] | + + + | Home Phone [...] + + | Author | [facility] | | | and Samirana | + + + | Organization | [facility] | | | [...] Team Providers + +------+ + | Care Hospitality Associate Name | Role | Phone | [...] Refill | | 2018 | | [facility] | [address] | | | | | [address] | [place] | | | | | [place] | [address] | | | | | [address] | | | | | | [phone] | | | +--------+--------+ + + + [...]
--- OUTSIDE RECORDS SUMMARY | ~2019-02-03 | XMS | Encounter Summary ---
Demographics + + + | Address | [address] | | | [place] [address] | + + + | Home Phone | | + + + | Preferred Language | Unknown | + + + | Marital Status | | + + + | Jewish Affiliation | 1041 | + + + | Race | Unknown | + + + | Ethnic Group | Unknown | + + + Author + + + | Author | [facility] | | | and Samirana | + + + | Organization | [facility] | | [...] Team Providers + +------+ + | Care Ways Operator Name | Role | Phone | [...] [place] | | | | | | [address] | [place], [place] | | | | | | Phone: | [address] | | | | | | [phone] | Phone: | | | | | | Fax: | [phone] | | | | | | [phone] | Fax: | | | | | | | [phone] | + + + + + + + Reason for Visit + + + | Reason | Comments | + + + | Procedure | skin excision right upper arm | + + + Encounter Details +--------+---------+ + + + | Date | Type | Department | Care Team | Description | +--------+---------+ + + + | 08/30/ | Office | [facility] | SloaneScot, | Neoplasm of | | 2019 | Visit | [facility] | [address] | uncertain behavior | | | | [address] | [place] | of skin of upper arm | | | | [place], [place] | [address] | (Primary Dx); | | | | [address] | | Meningioma (HCC); | | | | [phone] | | Screen for colon | | [...] LABORATORY: The technical component was performed by [employer] | | | [place], [address] [facility] [address] (Roll Tension Tester: Griselda | | Charisse Dubois MD; CLIA# [id number]). Professional interpretation was | | | performed by [facility], [facility], [address] | | | [place] [address] (Roll Tension Tester: Shawn | | | Aixa Reich MD; CLIA# [id number]). Diagnostician: Shawn Reich | | | Pathologist Electronically Signed 09/02/2018 | | + + + + +---------+ + + | Performing | Address | City/State[facility] | Phone Number | | Organization | [...]
--- OUTSIDE RECORDS SUMMARY | ~2019-02-03 | XMS | Encounter Summary ---
Demographics + + + | Address | [address] | | | [place] [address] | + + + | Home Phone [...] Team Providers + +------+ + | Care Chyron Operator Name | Role | Phone | [...] | Scot Anton, | Results | | 2017 | | [facility] | [address] | | | | | [address] | [place] | | | | | [place] | [address] | | | | | [address] | | | | | | [phone] | | | +--------+ + + + [...]
--- OUTSIDE RECORDS SUMMARY | ~2019-02-03 | XMS | Encounter Summary ---
Demographics + + + | Address | [address] | | | [place] [address] | + + + | Home Phone [...] Providers + +------+ + | Care Product Support Sales Representative Name | Role | Phone | + +------+ + | Scot Anton MD | PCP | | + +------+ + Reason for Visit + + + | Reason | Comments | + + + | Medication Prior | Lexapro 20 mg | | Authorization | | + + + Encounter Details +--------+ + + + + | Date | Type | Department | Care Team | Description | +--------+ + + + + | 03/18/ | Telephone | [facility] | Scot Anton, | Medication Prior | | 2018 | | [facility] | [address] | Authorization | | | | [address] | [place] | (Lexapro 20 mg) | | | | [place] | [address] | | | | | [address] | | | | | | [phone] | | | +--------+ + + + [...]
--- OUTSIDE RECORDS SUMMARY | ~2019-02-03 | XMS | Encounter Summary ---
Demographics + + + | Address | [address] | | | [place] [address] | + + + | Home Phone [...] Team Providers + +------+ + | Care Buffer Machine Name | Role | Phone | + +------+ + | Scot Anton MD | PCP | | + +------+ + Encounter Details +--------+ + + + + | Date | Type | Department | Care Team | Description | +--------+ + + + + | 10/31/ | Hospital | [facility] | Scot Anton, | Encounter for | | 2019 | Encounter | MED CTR MAMMOGRAPHY | [address] | screening mammogram | | | | [address] | [place] | for breast cancer | | | | [place] | [address] | | | | | [address] | | | | | | [phone] | | | +--------+ + + + [...] | | | | | | type ([facility]) | | | | | [...]
--- OUTSIDE RECORDS SUMMARY | ~2019-02-03 | XMS | Encounter Summary ---
Demographics + + + | Address | [address] | | | [place] [address] | + + + | Home Phone [...] Team Providers + +------+ + | Care Fence Setter Name | Role | Phone | + +------+ + PCP | Unavailable | + +------+ + Encounter Details +--------+ + + + + | Date | Type | Department | Care Team | Description | +--------+ + + + + | 04/14/ | Hospital | [facility] | Telly Chacon, | | | 2008 | Encounter | MED CTR XRAY [address] | MD [address] | | | | | [place] | [place] | | | | | [place] [address] | [address] | | | | | [phone] | | | +--------+ + + + [...]
--- OUTSIDE RECORDS SUMMARY | ~2019-02-03 | XMS | Encounter Summary ---
Demographics + + + | Address | [address] | | | [place] [address] | + + + | Home Phone [...] Team Providers + +------+ + | Care Chimney Construction Supervisor Name | Role | Phone | [...] Coordination | | 2019 | | [facility] | [address] | | | | | [address] | [place] | | | | | [place] | [address] | | | | | [address] | | | | | | [phone] | | | +--------+ + + + [...]
--- OUTSIDE RECORDS SUMMARY | ~2019-02-03 | XMS | Encounter Summary ---
Demographics + + + | Address | [address] | | | [place] [address] | + + + | Home Phone [...] Team Providers + +------+ + | Care Student Activities Director Name | Role | Phone | [...] + | 03/18/ | Telephone | [facility] | Scot Anton, | Medication Prior | | 2018 | | [facility] | [address] | Authorization | | | | [address] | [place] | (Lexapro 20 mg) | | | | [place] | [address] | | | | | [address] | | | | | | [phone] | | | +--------+ + + + [...]
--- OUTSIDE RECORDS SUMMARY | ~2019-02-03 | XMS | Encounter Summary ---
Demographics + + + | Address | [address] | | | [place] [address] | + + + | Home Phone [...] Team Providers + +------+ + | Care Cost Clerk Name | Role | Phone | + +------+ + | Pepper Kamara | PCP | | + +------+ + Encounter Details +--------+ + + + + | Date | Type | Department | Care Team | Description | +--------+ + + + + | 07/13/ | [facility] | [facility] | Pepper Kamara | | | 2010 | Encounter | MED CTR LABORATORY | NAV[address] Guerrero [address] | | | | | [address] [place] | [place] | | | | | [place] | [address] | | | | | [address] | | | | | | [phone] | | | +--------+ + + + [...] [address] | [place] | [phone] | | [facility] | | [address] | | | - LABORATORY | | | | + + + + + | [facility] | [address] | [place] | | | [facility] | | [address] | | | - LABORATORY | | [...] + | [facility] | [address] | [place] | [phone] | | [facility] | | [address] | | | - LABORATORY | | | | + + + + + | [facility] | [address] | [place], [place] | | | [facility] | | [address] | | | - LABORATORY | | [...] [address] | [place] | [phone] | | [facility] | | [address] | | | - LABORATORY | | | | + + + + + | [address] | [address] | [place] | | | [facility] | | [address] | | | - LABORATORY | | | | + + + + + documented in this encounter Visit Diagnoses Not on filedocumented in this encounter"
--- OUTSIDE RECORDS SUMMARY | ~2019-02-03 | XMS | Encounter Summary ---
Demographics + + + | Address | [address] | | | [place] [address] | + + + | Home Phone [...] Team Providers + +------+ + | Care Clinic Scheduler Name | Role | Phone | [...] | | | | [place] | [address] | | | | | [address] | | | | | | [phone] | | | +--------+ + + + [...]
--- OUTSIDE RECORDS SUMMARY | ~2019-02-03 | XMS | Encounter Summary ---
Demographics + + + | Address | [address] | | | [place] [address] | + + + | Home Phone [...] Team Providers + +------+ + | Care Doweler Name | Role | Phone | + [...] 2017 | | GASTROENTEROLOGY | [address], [place] | asks for earlier | | | | [address] [place] | [address] [place] | check-in time | | | | [address] [place], [place] | [address] | February 28) | | | | [address] | | | | | | [phone] | | | +--------+ + + + [...]
--- OUTSIDE RECORDS SUMMARY | ~2019-02-03 | XMS | Encounter Summary ---
Demographics + + + | Address | [address] | | | [place] [address] | + + + | Home Phone [...] Team Providers + +------+ + | Care Carrot Harvester Name | Role | Phone | + [...] [place] | | | | | [place], [place] | [address] | | | | | [address] | | | | | | [phone] | | | +--------+--------+ + + + [...]
--- OUTSIDE RECORDS SUMMARY | ~2019-02-03 | XMS | Encounter Summary ---
Demographics + + + | Address | [address] | | | [place] [address] | + + + | Home Phone [...] Team Providers + +------+ + | Care Jewelry Designer Name | Role | Phone | [...] Description | +--------+--------+ + + + | 09/12/ | Refill | [facility] [place] [facility] | Scot Anton, | Medication Refill | | 2018 | | [facility] | [address] | | | | | [address] | [place] | | | | | [place] | [address] | | | | | [address] | | | | | | [phone] | | | +--------+--------+ + + + [...]
--- OUTSIDE RECORDS SUMMARY | ~2019-02-03 | XMS | Encounter Summary ---
Demographics + + + | Address | [address] | | | [place] [address] | + + + | Home Phone [...] Team Providers + +------+ + | Care Paste Plant Supervisor Name | Role | Phone | [...] | (Primary Dx); | | | | [address] | [address] | Chronic depression | | | | [phone] | | | +--------+---------+ + + + [...] this encounter Patient Instructions Patient Instructions Nas eLahy MD - 09/16/2016 2:03 PM PDT Back [...] groin or genital area Date Last Reviewed: 08/25/201519995743-4005 [employer]. [address] [place] [address]. All [facility] specialty hospital[facility] ts reserved. This information is not [...] her medication. She just lost her.with the Ensighten Yardsale closure. HPI Patient's medications, allergies, past medical, [...] imary physician. This note was dictated using [employer] voice recognition software. Occasional wrong- word or [...]
--- OUTSIDE RECORDS SUMMARY | ~2019-02-03 | XMS | Encounter Summary ---
Demographics + + + | Address | [address] | | | [place] [address] | + + + | Home Phone [...] Team Providers + +------+ + | Care Neck Band Setter Name | Role | Phone | [...] Appointment | | 2011 | | [facility] | L, EVALUATION ANALYST [address] | | | | | [address] | [address]VE [place] | | | | | [place] | [address] | | | | | [address] | | | | | | [phone] | | | +--------+ + + + [...]
--- OUTSIDE RECORDS SUMMARY | ~2019-02-03 | XMS | Encounter Summary ---
Demographics + + + | Address | [address] | | | [place] [address] | + + + | Home Phone [...] Team Providers + +------+ + | Care Shipping Track Supervisor Name | Role | Phone | [...] [place] | | | | | | [address] | | | | | | [phone] | | | +--------+ + + + [...]
--- OUTSIDE RECORDS SUMMARY | ~2019-02-03 | XMS | Encounter Summary ---
Demographics + + + | Address | [address] | | | [place] [address] | + + + | Home Phone [...] Team Providers + +------+ + | Care Soap Worker Name | Role | Phone | [...] + + | 02/28/ | Telephone | [facility] | Dick Medina MD | Appointment (Patient | | 2017 | | GASTROENTEROLOGY | [address], [place] | rescheduled for the | | | | [address] [place] | [address] [place] | second time to | | | | [address] [place], [place] | [address] | 03/16/17) | | | | [address] | | | | | | [phone] | | | +--------+ + + + [...]
--- OUTSIDE RECORDS SUMMARY | ~2019-02-03 | XMS | Encounter Summary ---
Demographics + + + | Address | [address] | | | [place] [address] | + + + | Home Phone [...] Team Providers + +------+ + | Care Applications Analyst Name | Role | Phone | + +------+ + PCP | Unavailable | + +------+ + Encounter Details +--------+ + + + + | Date | Type | Department | Care Team | Description | +--------+ + + + + | 03/22/ | Hospital | [facility] | | | | 2007 | Encounter | MED CTR EMERGENCY | | | | | | CENTER [address] | | | | | | [place] | | | | | | [address] | | | | | | [phone] | | | +--------+ + + + [...]
--- OUTSIDE RECORDS SUMMARY | ~2019-02-03 | XMS | Encounter Summary ---
Demographics + + + | Address | [address] | | | [place] [address] | + + + | Home Phone [...] Team Providers + +------+ + | Care Scada Technician Name | Role | Phone | + +------+ + | Pepper Kamara | PCP | | + +------+ + Encounter Details +--------+ + + + + | Date | Type | Department | Care Team | Description | +--------+ + + + + | 07/21/ | [facility] | [facility] | Pepper Kamara | | | 2010 | Encounter | MED CTR XRAY [address] | L, NAVNEET [address] | | | | | [place] | [place] | | | | | [place] [address] | [address] | | | | | [phone] | | | +--------+ + + + [...] Performed At | + + + | [facility] Diagnostic Imaging Department | [facility] | | [address] [facility] | [facility] | | BILATERAL DIGITAL SCREENING | [...] Transcribed | | | Date/Time: 08/02/2010 09:14 [place]: | | | <Electronically Signed by Marquise Rodriguez MD> 08/02/10 1623 | | + + + + + | Procedure Note | + + | Jhoan, Rad Conversion - 05/02/2013 2:49 PM [facility] | | Diagnostic Imaging Department [address] [place] [address] | | BILATERAL DIGITAL SCREENING BASELINE MAMMOGRAM [...] Marquise Schrader | | MD Michael> 08/02/10 6861 | | | |FINDINGS: Review of the baseline 4 view mammogram demonstrates benign mammographic finding s with no | |suspicion of malignancy. | | | |IMPRESSION: | |1. BIRADS 2: BENIGN. | | | |RECOMMENDATIONS: ANNUAL FOLLOWUP ACCORDING TO ACS GUIDELINES. | | | |Dictated Date/Time: 08/02/2010 08:59 | |Transcribed Date/Time: 08/02/2010 09:14 | |[place]: | |<Electronically Signed by Marquise Rodriguez MD> 08/02/10 3533 | + + + +---------+ + + [...] Performed At | + + + | [facility] Diagnostic Imaging Department | [facility] | | [address] [facility] | [facility] | | GALLBLADDER ULTRASOUND, 1020 | [...] Transcribed Date/Time: 07/21/2010 | | | 12:23 [place]: <Electronically Signed by Marquise Schrader | | | MD Michael> 07/21/102126 | | + + + + ---------+ | Procedure Note | + ---------+ | Jhoan, Rad Conversion - 05/02/2013 2:48 PM [facility] | | Diagnostic Imaging Department [address] [place] [address] | | GALLBLADDER ULTRASOUND, 1020 HOURS, 07/21/2010 [...] 12:03 Transcribed | | Date/Time: 07/21/2010 12:23 [place]: <Electronically Signed by Marquise Schrader | | [...] 12:03 | |Transcribed Date/Time: 07/21/2010 12:23 | |[place]: | |<Electronically Signed by Marquise Rodriguez MD> [...]
--- OUTSIDE RECORDS SUMMARY | ~2019-02-03 | XMS | Encounter Summary ---
Demographics + + + | Address | [address] | | | [place] [address] | + + + | Home Phone [...] Providers + +------+ + | Care Information Systems Operator Name | Role | Phone | [...] | 2016 | Changes | GASTROENTEROLOGY | Bicycle Rental Clerk | | | | | [address] | | | | | | [address] [place] | | | | | | [address] | | | | | | [phone] | | | +--------+ + + + [...]
--- OUTSIDE RECORDS SUMMARY | ~2019-02-03 | XMS | Encounter Summary ---
Demographics + + + | Address | [address] | | | [place] [address] | + + + | Home Phone [...] Team Providers + +------+ + | Care Hand Engraver Name | Role | Phone | + [...] Refill | | 2012 | | MEDICINE [place] | L, YARD PIPE GRADER [address] | | | | | [address] | [address]VE [place] | | | | | [place] | [address] | | | | | [address] | | | | | | [phone] | | | +--------+--------+ + + + [...]
--- OUTSIDE RECORDS SUMMARY | ~2019-02-03 | XMS | Encounter Summary ---
Demographics + + + | Address | [address] | | | [place] [address] | + + + | Home Phone [...] Team Providers + +------+ + | Care Fruit Vendor Name | Role | Phone | + [...] Refill | | 2017 | | [facility] | [address] | | | | | [address] | [place] | | | | | [place] | [address] | | | | | [address] | | | | | | [phone] | | | +--------+--------+ + + + [...]
--- OUTSIDE RECORDS SUMMARY | ~2019-02-03 | XMS | Encounter Summary ---
Demographics + + + | Address | [address] | | | [place] [address] | + + + | Home Phone [...] Team Providers + +------+ + | Care Labor And Employment Paralegal Name | Role | Phone | + [...] | +--------+ + + + + | 09/24/ | Telephone | [facility] [place] [facility] | Scot Anton, | [facility] | | 2019 | | MEDICINE [place] | [address] | | | | | [address] | [place] | | | | | [place] | [address] | | | | | [address] | | | | | | [phone] | | | +--------+ + + + [...]
--- OUTSIDE RECORDS SUMMARY | ~2019-02-03 | XMS | Encounter Summary ---
Demographics + + + | Address | [address] | | | [place] [address] | + + + | Home Phone | | + + + | Preferred Language | Unknown | + + + | Marital Status | | + + + | Catholic Affiliation | 1041 | + + [...] Team Providers + +------+ + | Care Medical Registrar Name | Role | Phone | + [...] | | | | [place] | [address] | | | | | [address] | | | | | | [phone] | | | +--------+ + + + [...]
--- OUTSIDE RECORDS SUMMARY | ~2019-02-03 | XMS | Encounter Summary ---
Demographics + + + | Address | [address] | | | [place] [address] | + + + | Home Phone [...] Team Providers + +------+ + | Care Habitat Biologist Name | Role | Phone | + [...] Refill | | 2018 | | [facility] | [address] | | | | | [address] | [place] | | | | | [place] | [address] | | | | | [address] | | | | | | [phone] | | | +--------+--------+ + + + [...]
--- OUTSIDE RECORDS SUMMARY | ~2019-02-03 | XMS | Encounter Summary ---
Demographics + + + | Address | [address] | | | [place] [address] | + + + | Home Phone [...] + +------+ + | Care Director Of Safety And Security Name | Role | Phone | + +------+ + PCP | Unavailable | + +------+ + Encounter Details +--------+ + + + + | Date | Type | Department | Care Team | Description | +--------+ + + + + | 02/24/ | Hospital | [facility] | Pepper Kamara | | | 2008 | Encounter | MED CTR XRAY [address] | L, MACHINIST OUTSIDE [address] | | | | | [place] | [place] | | | | | [place] [address] | [id number] | | | | | [phone] | | | +--------+ + + + [...]
--- OUTSIDE RECORDS SUMMARY | ~2019-02-03 | XMS | Encounter Summary ---
Demographics + + + | Address | [address] | | | [place] [address] | + + + | Home Phone [...] Team Providers + +------+ + | Care Stranner Name | Role | Phone | + [...] + | 10/04/ | Office | [facility] | Pepper Kamara | Routine | | 2011 | Visit | MEDICINE [place] | L, SCALER PACKER [address] | gynecological | | | | [address] | [address] [place] | examination (Primary | | | | [place] | [address] | Dx); [place]IPOLAR | | | | [address] | | DISORDER | | | | [phone] | | UNSPECIFIED; Needs | | | [...] December 28, 2011 Pepper Hand [address] [facility] [address] [place] [address] Dear Pepper: Thank you for enrolling in for; to (do). Please follow the instructions below to view your [employer] online medical record. for; to (do) allows you to send secure messages to your doctor, view you r test results, renew your prescriptions, schedule appointments, and more. How Do I Sign Up? 1. In your Internet browser, go to [email or web address] 2. Click on the Sign Up Now link in the Sign In box.This will take you to the New Member Si gn Up page. 3. Enter your for; to (do) access code exactly as it appears below. You will not need to use thi s code after you sign up. If you do not sign up before the expiration date, you must request a new code through your [facility]. for; to (do) Access Code: [email or web address] Expires: 02/26/2012 12:19 4. Fill in the last four digits of your Social Security Number (xxxx) and Date of (mm /dd/yyyy) when asked and click Submit. You will now be asked to create a for; to (do) ID. 5. Create a mPorticohart ID. This will be your for; to (do) login ID. Your login ID cannot be changed , so think of one that is secure and easy to remember. 6. Create a for; to (do) password. You can change your password at any time. 7. Enter your Password Reset Question and Answer. This can be used at a later time if you f orget your password. 8. Enter your e-mail address. You will receive e-mail notification when new information is available in for; to (do). 9. Click Sign Up. You may now view your medical record. Additional Information If you have questions, you can email or call [phone] to talk to our mPorticohart care team. Please remember, [employer] should NOT be used fo r urgent [...]
--- OUTSIDE RECORDS SUMMARY | ~2019-02-03 | XMS | Encounter Summary ---
Demographics + + + | Address | [address] | | | [place] [address] | + + + | Home Phone [...] Team Providers + +------+ + | Care Pivot End Polisher Name | Role | Phone | + +------+ + | Scot Anton MD | PCP | | + +------+ + Reason for Visit + + + | Reason | Comments | + + + | Nicotine Dependence | | + + + Encounter Details +--------+ + + + + | Date | Type | Department | Care Team | Description | +--------+ + + + + | 02/07/ | Telephone | [facility] [place] [facility] | Scot Anton, | Nicotine Dependence | | 2017 | | [facility] | [address] | | | | | [address] | [place] | | | | | [place] | [address] | | | | | [address] | | | | | | [phone] | | | +--------+ + + + [...]
--- OUTSIDE RECORDS SUMMARY | ~2019-02-03 | XMS | Encounter Summary ---
Demographics + + + | Address | [address] | | | [place] [address] | + + + | Home Phone [...] Team Providers + +------+ + | Care Police Dispatcher Name | Role | Phone | + +------+ + | Scot Anton MD | PCP | | + +------+ + Reason for Visit + + + | Reason | Comments | + + + | Medication | | | Management | | + + + Encounter Details +--------+ + + + + | Date | Type | Department | Care Team | Description | +--------+ + + + + | 03/21/ | Telephone | [facility] [place] [facility] | Scot Anton, | Medication | | 2018 | | MEDICINE [place] | [address] | Management | | | | [address] | [place] | | | | | [place] | [address] | | | | | [address] | | | | | | [phone] | | | +--------+ + + + [...] +---+---+---+ + + | Comments: Previously tried Rani, patch | + + + + +---------+ [...]
--- OUTSIDE RECORDS SUMMARY | ~2019-02-03 | XMS | Encounter Summary ---
Demographics + + + | Address | [address] | | | [place] [address] | + + + | Home Phone [...] Providers + +------+ + | Care Manager Pathology Name | Role | Phone | + [...] [place] | | | | | | [address] | | | | | | [phone] | | | +--------+ + + + [...]
--- OUTSIDE RECORDS SUMMARY | ~2019-02-03 | XMS | Encounter Summary ---
Demographics + + + | Address | [address] | | | [place] [address] | + + + | Home Phone [...] Team Providers + +------+ + | Care Park Guard Name | Role | Phone | [...] | 2016 | Changes | GASTROENTEROLOGY | Classroom Instructor | | | | | [address] | | | | | | [address] [place] | | | | | | [address] | | | | | | [phone] | | | +--------+ + + + [...]
--- OUTSIDE RECORDS SUMMARY | ~2019-02-03 | XMS | Encounter Summary ---
Demographics + + + | Address | [address] | | | [place] [address] | + + + | Home Phone [...] Providers + +------+ + | Care Machine Tool Dresser Name | Role | Phone | + [...] Acute pain | Scot Flowers MD | [facility] | | | Required | Rehabilitatio | of right | [address] | [address] | | | | n | shoulder | [address] [place] | | | | | Procedures | [place] | [place] | | | | | [place] | [address] | [address] Phone: | | | | | | Phone: | [phone] | | | | | | [phone] | Fax: | | | | | | Fax: | [phone] | | | | | | [phone] | | +--------+ + + + + [...] | | | | [place] | [address] | | | | | [address] | | | | | | [phone] | | | +--------+ + + + [...]
--- OUTSIDE RECORDS SUMMARY | ~2019-02-03 | XMS | Encounter Summary ---
Demographics + + + | Address | [address] | | | [place] [address] | + + + | Home Phone [...] Team Providers + +------+ + | Care Spinner Open End Name | Role | Phone | + +------+ + | Pepper Kamara | PCP | | + +------+ + Encounter Details +--------+ + + + + | Date | Type | Department | Care Team | Description | +--------+ + + + + | 08/08/ | [facility] | [facility] | Pepper Kamara | | | 2010 | Encounter | MED CTR XRAY [address] | L, NAVNEET [address] | | | | | [place] | [place] | | | | | [place] [address] | [address] | | | | | [phone] | | | +--------+ + + + [...] Performed At | + + + | [facility] Diagnostic Imaging Department | [facility] | | [address] | [facility] | | HEPATOBILIARY SCAN CLINICAL | DIAG [...] | | | Transcribed Date/Time: 08/08/2010 15:36 Graduate Internship: | | | <Electronically Signed by Ian Pimentel MD> 08/09/10 0802 | | + + + + + | Procedure Note | + + | Jhoan, Rad Conversion - 05/02/2013 2:[address] [facility] | | Diagnostic Imaging Department [address] [place] [address] | | HEPATOBILIARY SCAN CLINICAL HISTORY: RIGHT [...] 12:58 | |Transcribed Date/Time: 08/08/2010 15:36 | |Graduate Internship: | |<Electronically Signed by Ian Pimentel MD> 08/09/10 0802 | + + + +---------+ + + | Performing | Address | City/State/[facility]ode | Phone Number | | Organization | | | | + +---------+ + + | [place] | | | | | [facility] | | | | + +---------+ + + documented in this encounter Visit Diagnoses Not on filedocumented in this encounter"
--- OUTSIDE RECORDS SUMMARY | ~2019-02-03 | XMS | Encounter Summary ---
Demographics + + + | Address | [address] | | | [place] [address] | + + + | Home Phone [...] [facility] | | | and Smairana | + + + | Organization | [...] Team Providers + +------+ + | Care Casing Builder Name | Role | Phone | + [...] | | | | [place] | [address] | | | | | [address] | | | | | | [phone] | | | +--------+--------+ + + + [...]
--- OUTSIDE RECORDS SUMMARY | ~2019-02-03 | XMS | Encounter Summary ---
Demographics + + + | Address | [address] | | | [place] [address] | + + + | Home Phone [...] Providers + +------+ + | Care Machine Precision Etcher Name | Role | Phone | + [...] Medication | | 2018 | | MEDICINE [place] | [address] | Management | | | | [address] | [place] | | | | | [place] | [address] | | | | | [address] | | | | | | [phone] | | | +--------+ + + + [...]
--- OUTSIDE RECORDS SUMMARY | ~2019-02-03 | XMS | Encounter Summary ---
Demographics + + + | Address | [address] | | | [place] [address] | + + + | Home Phone [...] Team Providers + +------+ + | Care Telesales Advisor Name | Role | Phone | [...] + | 11/29/ | Telephone | [facility] | Scot Anton, | Medication Follow-up | | 2018 | | MEDICINE [place] | [address] | (Bupropion start); | | | | [address] | [place] | Medication | | | | [place] | [address] | Management; | | | | [address] | | Homeless; Medication | | | | [phone] | | Question | +--------+ + + [...]
--- OUTSIDE RECORDS SUMMARY | ~2019-02-03 | XMS | Encounter Summary ---
Demographics + + + | Address | [address] | | | [place] [address] | + + + | Home Phone | | + + + | Preferred Language | Unknown | + + + | Marital Status | | + + + | Oriental Orthodox Affiliation | 1041 | + + + | Race | Unknown | + + + | Ethnic Group | Unknown | + + + Author + + + | Author | [facility] | | | and Samirana | + [...] Team Providers + +------+ + | Care President And Chief Executive Officer Name | Role | Phone | [...] Follow-up | | 2011 | | [place] | | | | | | [address] | | | | | | [place], [place] | | | | | | [address] | | | | | | [phone] | | | +--------+ + + + [...]
--- OUTSIDE RECORDS SUMMARY | ~2019-02-03 | XMS | Encounter Summary ---
Demographics + + + | Address | [address] | | | [place] [address] | + + + | Home Phone [...] Team Providers + +------+ + | Care Wafer Fabrication Technician Name | Role | Phone | [...] | Scot Flowers MD | [address] | | | | | brain (HCC) | [address] | [place], | | | | | Procedures | [address] | [place] | | | | | MRI Brain w | [place] | [address] | | | | | wo Contrast | [address] | Phone: | | | | | | Phone: | [phone] | | | | | | [phone] | Fax: | | | | | | Fax: | [phone] | | | | | | [phone] | | +--------+--------+ + + + + [...] Only | | 2019 | | MEDICINE [place] | [address] | | | | | [address] | [place] | | | | | [place] | [address] | | | | | [address] | | | | | | [phone] | | | +--------+ + + + [...]
--- OUTSIDE RECORDS SUMMARY | ~2019-02-03 | XMS | Encounter Summary ---
Demographics + + + | Address | [address] | | | [place] [address] | + + + | Home Phone [...] +------+ + | Care Vice President Of Finance Name | Role | Phone | + +------+ + | Scot Anton MD | PCP | | + +------+ + Encounter Details +--------+ + + + + | Date | Type | Department | Care Team | Description | +--------+ + + + + | 03/16/ | Anesthesia | [facility] | Remington Cedeño, | | | 2017 | Event | MED CTR MP INTRA OP | DO [address] | | | | | [address] | [place] | | | | | [place] | [address] | | | | | [address] | | | | | | [phone] | | | +--------+ + + + [...]
--- OUTSIDE RECORDS SUMMARY | ~2019-02-03 | XMS | Encounter Summary ---
Demographics + + + | Address | [address] | | | [place] [address] | + + + | Home Phone [...] Team Providers + +------+ + | Care Intensive Care Specialist Name | Role | Phone | [...] Refill | | 2018 | | [facility] | [address] | | | | | [address] | [place] | | | | | [place] | [address] | | | | | [address] | | | | | | [phone] | | | +--------+--------+ + + + [...]
--- OUTSIDE RECORDS SUMMARY | ~2019-02-03 | XMS | Encounter Summary ---
Demographics + + + | Address | [address] | | | [place] [address] | + + + | Home Phone [...] Providers + +------+ + | Care Director Risk Name | Role | Phone | + [...] [address] | | | | | [phone] | [place] | | | | | | [address] | | | | | | | [...]
--- OUTSIDE RECORDS SUMMARY | ~2019-02-03 | XMS | Encounter Summary ---
Demographics + + + | Address | [address] | | | [place] [address] | + + + | Home Phone [...] Team Providers + +------+ + | Care Slot Key Person Name | Role | Phone | + +------+ + | No, Physician | PCP | Unavailable | + +------+ + Encounter Details +--------+ + + + + | Date | Type | Department | Care Team | Description | +--------+ + + + + | 12/18/ | Abstract | [facility] [place] [facility] | Scot Anton, | | | 2016 | | MEDICINE [place] | [address] | | | | | [address] | [place] | | | | | [place] | [address] | | | | | [address] | | | | | | [phone] | | | +--------+ + + + [...]
--- OUTSIDE RECORDS SUMMARY | ~2019-02-03 | XMS | Encounter Summary ---
Demographics + + + | Address | [address] | | | [place] [address] | + + + | Home Phone [...] Team Providers + +------+ + | Care Channel Machine Operator Name | Role | Phone | + +------+ + | Pepper Kamara | PCP | | + +------+ + Encounter Details +--------+ + + + + | Date | Type | Department | Care Team | Description | +--------+ + + + + | 08/19/ | [facility] | [facility] | Ani Gill, | | | 2009 | Encounter | MED CTR LABORATORY | MD [address] | | | | | [address] | [place] | | | | | [place] | [id number] | | | | | [address] | | | | | | [phone] | | | +--------+ + + + [...]
--- OUTSIDE RECORDS SUMMARY | ~2019-02-03 | XMS | Encounter Summary ---
Demographics + + + | Address | [address] | | | [place] [address] | + + + | Home Phone [...] Team Providers + +------+ + | Care X Ray Equipment Servicer Name | Role | Phone | + [...] | SR | | | | | [phone] | | | +--------+ + + + [...]
--- OUTSIDE RECORDS SUMMARY | ~2019-02-03 | XMS | Encounter Summary ---
Demographics + + + | Address | [address] | | | [place] [address] | + + + | Home Phone [...] Team Providers + +------+ + | Care Surface Supply Breathing Apparatus Name | Role | Phone | + [...] + + | 09/06/ | Office | [facility] | Scot Anton Lionel, | Cellulitis of right | | 2019 | Visit | MEDICINE [place] | [address] | upper extremity | | | | [address] | [place] | (Primary Dx); | | | | [place], [place] | [address] | Ventral hernia | | | | [address] | | without obstruction | | | | [phone] | | or gangrene | +--------+---------+ + [...] by your healthcare provider Date Last Reviewed: 05/24/201719996772-0830 The [employer]. [address] [place] [address], [place] [address]. All righ ts reserved. This information is not intended as a substitute for professional medical care. Always follow your healthcare professional's instructions. documented in this encounter Progress Notes Scot Anton MD - 09/06/2018 11:00 AM PDTFormatting of this note might be different fr om the original. Subjective: Patient ID: Pepper aHnd is a 58 y.o. female who is [...]
--- OUTSIDE RECORDS SUMMARY | ~2019-02-03 | XMS | Encounter Summary ---
Demographics + + + | Address | [address] | | | [place] [address] | + + + | Home Phone [...] Team Providers + +------+ + | Care Records Associate Name | Role | Phone | [...] + | 03/18/ | Telephone | [facility] | Scot Anton, | Medication Prior | | 2018 | | [facility] | [address] | Authorization | | | | [address] | [place] | (Diclofenac gel) | | | | [place] | [address] | | | | | [address] | | | | | | [phone] | | | +--------+ + + + [...]
--- OUTSIDE RECORDS SUMMARY | ~2019-02-03 | XMS | Encounter Summary ---
Demographics + + + | Address | [address] | | | [place] [address] | + + + | Home Phone [...] Team Providers + +------+ + | Care Store Sales Consultant Name | Role | Phone [...] [facility] [place] [facility] | Scot Anton, | [facility] | | 2019 | | MEDICINE [place] | [address] | | | | | [address] | [place] | | | | | [place] | [address] | | | | | [address] | | | | | | [phone] | | | +--------+ + + + [...]
--- OUTSIDE RECORDS SUMMARY | ~2019-02-03 | XMS | Encounter Summary ---
Demographics + + + | Address | [address] | | | [place] [address] | + + + | Home Phone [...] Team Providers + +------+ + | Care Plush Cutter Name | Role | Phone | [...] | 02/07/ | Telephone | [facility] [place] [facility] | Scot Anton, | Nicotine Dependence | | 2017 | | [facility] | [address] | | | | | [address] | [place] | | | | | [place] | [address] | | | | | [address] | | | | | | [phone] | | | +--------+ + + + [...]
--- OUTSIDE RECORDS SUMMARY | ~2019-02-03 | XMS | Encounter Summary ---
Demographics + + + | Address | [address] | | | [place] [address] | + + + | Home Phone | | + + + | Preferred Language | Unknown | + + + | Marital Status | | + + + | Evangelical Affiliation | 1041 | + + + | Race | Unknown | + + + | Ethnic Group | Unknown | + + + Author + + + | Author | [facility] | | | and Samirana | + + + | Organization | [facility] | | [...] Team Providers + +------+ + | Care Retrimmer Name | Role | Phone | + +------+ + PCP | Unavailable | + +------+ + Encounter Details +--------+ + + + + | Date | Type | Department | Care Team | Description | +--------+ + + + + | 10/21/ | Hospital | [facility] | Pepper Kamara | | | 2008 - | Encounter | MED CTR DIETARY | L, ELECTRON BEAM PHOTO MASK MAKER [address] | | | | | [address] [place] | [place] | | | 10/23/ | | [place] [address] | [id number] | | | 2008 | | [phone] | | | +--------+ + + + [...]
--- OUTSIDE RECORDS SUMMARY | ~2019-02-03 | XMS | Encounter Summary ---
Demographics + + + | Address | [address] | | | [place] [address] | + + + | Home Phone [...] Team Providers + +------+ + | Care Miniature Set Constructor Name | Role | Phone | + +------+ + PCP | Unavailable | + +------+ + Encounter Details +--------+ + + + + | Date | Type | Department | Care Team | Description | +--------+ + + + + | 08/07/ | Hospital | [facility] | | | | 2009 | Encounter | MED CTR EMERGENCY | | | | | | CENTER [address] | | | | | | [place] | | | | | | [address] | | | | | | [phone] | | | +--------+ + + + [...]
--- OUTSIDE RECORDS SUMMARY | ~2019-02-03 | XMS | Encounter Summary ---
Demographics + + + | Address | [address] | | | [place] [address] | + + + | Home Phone [...] Team Providers + +------+ + | Care Gis Database Administrator Name | Role | Phone | + +------+ + PCP | Unavailable | + +------+ + Encounter Details +--------+ + + + + | Date | Type | Department | Care Team | Description | +--------+ + + + + | 06/22/ | [facility] | [facility] | Sean Calero | | | 2005 | Encounter | MED CTR EMERGENCY | MD [address] | | | | | [place] [address] | [facility] | | | | | [place] | [place] [address] | | | | | [address] | [phone] | | | | | [phone] | | | +--------+ + + + [...]
--- OUTSIDE RECORDS SUMMARY | ~2019-02-03 | XMS | Encounter Summary ---
Demographics + + + | Address | [address] | | | [place] [address] | + + + | Home Phone [...] Team Providers + +------+ + | Care Bar And Filler Assembler Name | Role | Phone | [...] Refill | | 2018 | | [facility] | [address] | | | | | [address] | [place] | | | | | [place] | [address] | | | | | [address] | | | | | | [phone] | | | +--------+--------+ + + + [...]
--- OUTSIDE RECORDS SUMMARY | ~2019-02-03 | XMS | Encounter Summary ---
Demographics + + + | Address | [address] | | | [place] [address] | + + + | Home Phone [...] Team Providers + +------+ + | Care Animal Treatment Investigator Name | Role | Phone | + +------+ + | Scot Anton MD | PCP | | + +------+ + Reason for Visit + + + | Reason | Comments | + + + | Referral | Cardiac Rehab | | (PreAuthorization) | | + + + Encounter Details +--------+ + + + + | Date | Type | Department | Care Team | Description | +--------+ + + + + | 10/29/ | Telephone | [facility] [place] [facility] | Scot Anton, | Referral | | 2019 | | [facility] | [address] | (PreAuthorization) | | | | [address] | [place] | (Cardiac Rehab) | | | | [place] | [address] | | | | | [address] | | | | | | [phone] | | | +--------+ + + + [...]
--- OUTSIDE RECORDS SUMMARY | ~2019-02-03 | XMS | Encounter Summary ---
Demographics + + + | Address | [address] | | | [place] [address] | + + + | Home Phone [...] Team Providers + +------+ + | Care Child Study Team Director Name | Role | Phone | + +------+ + | Scot Anton MD | PCP | | + +------+ + Encounter Details +--------+---------+ + + + | Date | Type | Department | Care Team | Description | +--------+---------+ + + + | 03/16/ | Surgery | [facility] | Dick Medina MD | EGD | | 2017 | | MED CTR MP INTRA OP | [address], [place] | | | | | [address] | [address] [place] | | | | | [place], [place] | [id number] | | | | | [address] | | | | | | [phone] | | | +--------+---------+ + + + [...]
--- OUTSIDE RECORDS SUMMARY | ~2019-02-03 | XMS | Encounter Summary ---
Demographics + + + | Address | [address] | | | [place] [address] | + + + | Home Phone [...] Team Providers + +------+ + | Care Incident Response Consultant Name | Role | Phone | [...] | | | | CENTER [address] | [address] [place] | (Primary Dx) | | | | [place], [place] | [place] [address] | | | | | [address] | [phone] | | | | | [phone] | | | +--------+ + + + [...]
--- OUTSIDE RECORDS SUMMARY | ~2019-02-03 | XMS | Encounter Summary ---
Demographics + + + | Address | [address] | | | [place] [address] | + + + | Home Phone [...] Team Providers + +------+ + | Care Train Brakeman Name | Role | Phone | + +------+ + | Pepper Kamara | PCP | | + +------+ + Encounter Details +--------+ + + + + | Date | Type | Department | Care Team | Description | +--------+ + + + + | 01/04/ | [facility] | [facility] | Telly Chacon, | | | 2009 | Encounter | MED CTR GENERIC OP | MD [address] | | | | | CONV DEPT [address] | [place] | | | | | [place], | [address] | | | | | [place] [address] | | | | | | [phone] | | | +--------+ + + + [...]
--- OUTSIDE RECORDS SUMMARY | ~2019-02-03 | XMS | Encounter Summary ---
Demographics + + + | Address | [address] | | | [place] [address] | + + + | Home Phone [...] Team Providers + +------+ + | Care Banquet Coordinator Name | Role | Phone | [...] | 10/29/ | Telephone | [facility] [place] [facility] | Scot Anton, | Referral | | 2019 | | MEDICINE [facility] | [address] | (PreAuthorization) | | | | [address] | [place] | (Cardiac Rehab) | | | | [place] | [address] | | | | | [address] | | | | | | [phone] | | | +--------+ + + + [...]
--- OUTSIDE RECORDS SUMMARY | ~2019-02-03 | XMS | Encounter Summary ---
Demographics + + + | Address | [address] | | | [place] [address] | + + + | Home Phone | | + + + | Preferred Language | Unknown | + + + | Marital Status | | + + + | Islam Affiliation | 1041 | + + + | Race | Unknown | + + + | Ethnic Group | Unknown | + + + Author + + + | Author | [facility] | | | and [place]irana | + + + | Organization | [facility] | | [...] Team Providers + +------+ + | Care Referral And Information Aide Name | Role | Phone | [...] + + | 11/15/ | Telephone | [facility] | Scot Anton, | Records Request | | 2017 | | [facility] | [address] | | | | | [address] | [place] | | | | | [place] | [address] | | | | | [address] | | | | | | [phone] | | | +--------+ + + + [...]
[~2019-02-03 09:43] MED LIST changes: +DIVALPROEX SOD500 M1 PO; +DOXYCYCLINE HY100 MG PO; +HYDROXYZINE HCL25 MG PO; +IPRAT-ALBUT 0.5-3 ML INH; +NICOTINE1 EAC1 TD; +SPACE CHAMBER1 EACH INH
--- OUTSIDE RECORDS SUMMARY | 2019-02-03 09:46 | XMS ---
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 Security Senior Business Broker Events 1 event(s) in the past 18 months Most recent security events: Elopement at [facility] 12/12/2018 23:34 - Other Details: PATIENT LEFT AMA. IRIS CREATED. CRITERIA MET - 6 ED Visits in 6 Months - [facility] - Has Care Guidelines CARE PROVIDERS [facility]ATH[facility] Current PHONE: [phone] Guidelines [facility] Date: 11/13/2018 Care Coordination: Mental health services provided by [facility].\T\nbsp; Please contact [facility] with mental health concerns.\T\nbsp; [place]: [phone]\T\ nbsp; [place]: [phone]. Care History Medical/Surgical 12/13/2018 [facility] - [facility] REFERRAL MADE DUE TO PATIENT RECENT HOSPITALIZATION. E.D. VISIT COUNT (12 MO.) 3 [facility]. 5 [facility] Urias TOTAL 8 NOTE: Visits indicate total known visits. ED/UCC VISIT TRACKING (12 MO.) 02/03/2019 09:44 [facility] [place] TYPE: Emergency COMPLAINT: - SOB 12/13/2018 01:01 [facility] [place] TYPE: Emergency COMPLAINT: - SOB 12/12/2018 23:34 [facility] [place] TYPE: Emergency COMPLAINT: - SOB DIAGNOSES: - Shortness of breath - terminal carman (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 of systemic steroids - Allergy status to analgesic agent status - Allergy status to oth drug/meds/biol subst status - Chronic obstructive pulmonary disease w (acute) exacerbation - Allergy status to other antibiotic agents status - Nicotine dependence, unspecified, uncomplicated - Essential (primary) hypertension - Other correction (current) drug therapy - MCC (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 of aspirin - Allergy status to sulfonamides status - Allergy status to narcotic agent status - Allergy status to penicillin - Major depressive disorder, single episode, unspecified 12/10/2018 19:33 [facility] TYPE: Emergency COMPLAINT: - SOB DIAGNOSES: - Allergy status to other antibiotic agents status - Chr obstructive pulmon disease with (acute) lower resp infct - Nasal congestion - MCC (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 of aspirin - Nicotine dependence, unspecified, uncomplicated - Allergy status to penicillin - Allergy status to narcotic agent status - Allergy status to analgesic agent status - Acute bronchitis, unspecified - Other correction (current) drug therapy - Allergy status to sulfonamides status - Allergy status to oth drug/meds/biol subst status - Essential (primary) hypertension [facility] DIAGNOSES: - Difficulty Breathing - Chronic obstructive pulmonary disease w (acute) exacerbation 11/05/2018 18:14 [facility] [place] TYPE: Emergency COMPLAINT: - MEDICAL SCREEN DIAGNOSES: - Chronic obstructive pulmonary disease, unspecified - Allergy status to analgesic agent status - Allergy status to narcotic agent status - Major depressive disorder, single episode, unspecified - Other intermediate accountant (current) drug therapy - Allergy status to oth drug/meds/biol subst status - Allergy status to penicillin - Allergy status to sulfonamides status - Essential (primary) hypertension - Allergy status to other antibiotic agents status - Nicotine dependence, unspecified, uncomplicated 09/20/2018 16:10 [facility] Erica DAVIS TYPE: Emergency DIAGNOSES: - Shortness of breath - Acute bronchospasm - Hypoxemia - Dependence on supplemental oxygen - Shortness of Breath - Chronic obstructive pulmonary disease w (acute) exacerbation 04/17/2018 11:37 [facility] DIAGNOSES: - Chronic obstructive pulmonary disease w (acute) exacerbation - sob - Tobacco use - Hypoxemia - Shortness of Breath INPATIENT VISIT TRACKING (12 MO.) 12/13/2018 09:[address] [facility] [place] TYPE: Medical Surgical COMPLAINT: - EXACERBATION DIAGNOSES: - Do not resuscitate - Gastro-esophageal reflux disease without esophagitis - Allergy status to narcotic agent status - Allergy status to other antibiotic agents status - Allergy status to penicillin - terminal carman (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 of inhaled steroids - MCC (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 of systemic steroids - Nicotine dependence, cigarettes, uncomplicated - Allergy status to oth drug/meds/biol subst status - Chronic obstructive pulmonary disease w (acute) exacerbation - Do not resuscitate - Other intermediate accountant (current) drug therapy - Allergy status to sulfonamides status - Gastro-esophageal reflux disease without esophagitis - Allergy status to sulfonamides status - Nicotine dependence, cigarettes, uncomplicated - MCC (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 of systemic steroids - Unspecified mood [affective] disorder - Chronic obstructive pulmonary disease w (acute) exacerbation - Other cerebrovascular disease - Allergy status to other antibiotic agents status - Essential (primary) hypertension - Homelessness - terminal carman (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 of inhaled steroids - Unspecified mood [affective] disorder - terminal carman (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 of aspirin - Other cerebrovascular disease - Acute upper respiratory infection, unspecified - Homelessness - Allergy status to penicillin - Acute upper respiratory infection, unspecified - Essential (primary) hypertension - Allergy status to narcotic agent status - Acute and chronic respiratory failure with hypoxia - Allergy status to oth drug/meds/biol subst status - MCC (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 of aspirin - Other intermediate accountant (current) drug therapy 09/20/2018 16:10 [facility]: Medical Surgical DIAGNOSES: - Shortness of breath - Dependence on supplemental oxygen - Chronic obstructive pulmonary disease w (acute) exacerbation - Acute bronchospasm - Tobacco use - Acute and chronic respiratory failure with hypoxia - Hypoxemia 04/17/2018 11:37 [facility] DIAGNOSES: - Chronic obstructive pulmonary disease w (acute) exacerbation - Acute and chronic respiratory failure with hypoxia - Chronic obstructive pulmonary disease, unspecified - Cerebrovascular disease, unspecified - Tobacco use - Anxiety disorder, unspecified - Hypoxemia [email or web address]
[2019-02-03] MEDS ORDERED: PREDNISONE20 MG PO (12:04)
--- NOTE | 2019-02-03 20:24 | EKG ---
[facility] [address] [place] [address] Signed Normal sinus rhythm Possible Left atrial enlargement Cannot rule out Anterior infarct , age undetermined Abnormal ECG When compared with ECG of 12-DEC-2018 23:43, No significant change was found Confirmed by JESS FERRER MD ([id number]) on 02/03/2019 8:23:41 PM Electronically Signed By: JESS FERRER MD 02/03/192023 PATIENT NAME: ALEX JIMENEZ Electrocardiogram DATE OF : 60 PHYSICIAN: JESS FERRER MD REPORT #: [id number] REPORT IS CONFIDENTIAL AND NOT TO BE RELEASED WITHOUT AUTHORIZATION
== END 2019-02-03 12:27 | disposition home or self-care (01) ==
LOC: ED 09:43
DX: J44.1 Chronic obstructive pulmonary disease with (acute) exacerbation (principal); I10 Essential (primary) hypertension; F32.9 Major depressive disorder, single episode, unspecified; F17.200 Nicotine dependence, unspecified, uncomplicated; Z88.0 Allergy status to penicillin; Z88.5 Allergy status to narcotic agent; Z88.2 Allergy status to sulfonamides; Z88.8 Allergy status to other drugs, medicaments and biological substances; Z79.899 Other long term (current) drug therapy; Z79.82 Long term (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 of aspirin
CPT/HCPCS: 71045; 80053; 83605; 83880; 84484; 85025; 87502; 93005; 93010; 96361; 96374; 99285-25; 99406; J2930; J7040

== ENCOUNTER 2021-05-23 23:35 | Inpatient (IN) | payer OTHER ==
[~2021-05-23] VITALS: Ht 157.5 cm; Wt 67.9 kg
[~2021-05-23 23:35] MED LIST changes: -ASPIR-LOW81 MG PO; +ASPIR-TRIN325 MG PO
[2021-05-23] MEDS ORDERED: SYMBICORT 16010.2 GM INH (23:47)
--- NOTE | 2021-05-24 03:02 | NUR ---
PATIENT ASSESSMENT COMPLETE. PATIENT IS ALERT AND ORIENTED X4. LUNG SOUNDS ARE WHEEZY AND COURSE IN THE UPPER LOBES AND DIMINISHED IN THE BASES. PATIENT IS ON 2 LITERS VIA NASAL CANULA. OXYGEN SATURATION IS 90-95%. RR IS 20-25. BREATHING EQUAL AND LABORED. PATIENT STATES "I AM FEELING MUCH BETTER." HEART RATE IS 100-110 BPM SINUS TACH. AFEBRILE. NO URINE OUTPUT YET. NO BM. BOWEL TONES ACTIVE. PATIENT DENIES ANY NAUSEA. DENIES ANY PAIN. SCRATCHES ON PATIENT BLE FROM CATS. BRUISES ON BUE FROM IV ATTEMPTS. IV SITES PATENT. CMST INTACT. NO QUESTIONS AT THIS TIME. CALL LIGHT WITHIN REACH NO FUTHER NEEDS.
--- NOTE | 2021-05-24 05:30 | NUR ---
PATIENT ASLEEP. OXYGEN AT 2 LITERS VIA NASAL CANULA. OXYGEN SATURATIONS ARE 90-96%. RR IS 14-20. BREATHING EQUAL AND UNLABORED. NO QUESTIONS AT THIS TIME. CALL LIGHT WITHIN REACH NO FUTHER NEEDS.
--- NOTE | 2021-05-24 06:30 | NUR ---
PATIENT ASLEEP IN BED. PATIENT IS ON 2 LITERS NASAL CANULA. RR IS 15-20. OXYGEN SATURATIONS ARE 90-96%. BREATHING EQUAL AND UNLABORED. NO QUESTIONS AT THIS TIME. CALL LIGHT WITHIN REACH NO FUTHER NEEDS.
--- NOTE | 2021-05-24 07:50 | NUR ---
Spoke with pt. She lives alone in an apartment. She has 02 in the home and a nebulizer. Does not use her nebulizer as she feels like she is drowning. Use inhalers instead. Feels she is near baseline and plans on discharge to home when cleared medically. Denies needs.
--- NOTE | 2021-05-24 08:01 | NUR ---
INTO PATIENT'S ROOM FOR ASSESSMENT AND VITALS. PT LAYING IN BED ON 2 L OXYMASK AND STATES "I'VE FELT BETTER" BUT DOES ENDORSE THAT SHE FEELS BETTER FROM WHEN SHE FIRST CAME IN. PATIENT STATES THAT SHE DECIDED TO COME TO THE HOSPITAL WHEN SHE COULD NO LONGER BREATH AT ALL. PATIENT HELPED TO SIT UP AND LUNG SOUNDS AUSCULTATED. PATIENT HAS LOUD EXP WHEEZES THROUGHOUT LUNG BARRIOS POSTERIORLY AND ANTERIORLY. PATIENT TAKEN OFF OXYMASK AND ROOM AIR TRIAL PERFORMED. PT DROPS DOWN T0 88% AFTER ABOUT 5 MINUTES, AND PLACED BACK ON 2 L NC. PATIENT'S BREAKFAST BROUGHT INTO PATIENT'S ROOM AND SHE IS NOW SITTING UPRIGHT EATING. CASE MANAGEMENT NOW IN ROOM. RR AT REST IS 17-20, BUT IS NOW INCREASING TO 28-30. CONTINUE TO MONITOR.
--- NOTE | 2021-05-24 09:06 | NUR ---
DR. FERRER IN TO SEE PATIENT AT THIS TIME. PLAN OF CARE BEING DISCUSSED. CONTINUE TO MONITOR.
--- NOTE | 2021-05-24 10:33 | NUR ---
OSBALDO WARD CONTACTED ME AND IMFORMED ME THAT PT WAS WANTING VISIT AND INFO ON LENT. FOUND PT TO BE ALERT, ORIENTED AND SITTING UP IN BED USING O2 NC. PT IS PLEASANT, PERSISTANT COUGH. I INFORMED HER I WILL HAVE FR VELÁSQUEZ COME IN TODAY AFTER MASS AND MAKE CONNECTIONS ABOUT JUSTICE SUNDAY OBSERVANCE. PT ACKNOWLEDGED.GAVE G.POST AND PT REQUESTED PRAYER. WILL FOLLOW NEEDED
--- NOTE | 2021-05-24 11:43 | NUR ---
MED REC COMPLETE
--- NOTE | 2021-05-24 13:02 | NUR ---
PATIENT SLEEPING AT THIS TIME AND REMAINS ON 2 L NC. PT STILL NOT WANTING TO EAT LUNCH.
--- NOTE | 2021-05-24 13:15 | NUR ---
PATIENT SUDDENLY COUGHING AND THIS RN INTO ROOM. PT SITTING UP AT EDGE OF BED AND COUGHING SEVERELY, STATING THAT SHE FEELS LIKE SHE'S CHOKING ON HER SECRETIONS SOME, AND THAT SHE IS EVEN BRONCHOSPASMING A LITTLE. LUNGS WERE DIM AT THAT TIME, AND SP02 DROPPED DOWN TO 82% WITH THIS COUGHING. PT PROMPTED AND COACHED TO DO PURSED LIP BREATHING THROUGH HER NOSE, OUT HER MOUTH, AND 02 INCREASED TO 5 L TEMPORARILY. PT ABLE TO REGAIN CONTROL AFTER A FEW MINUTES AND SP02 BACK TO LOW TO MID 90s. PT DENIED WANTING A NEB DURING ALL OF THIS, BUT REMINDED THAT NEB TX SHOULD BE HELPFUL DURING THESE EPISODES. WILL CONTINUE TO MO NITOR CLOSELY.
--- NOTE | 2021-05-24 15:15 | NUR ---
PATIENT STARTING TO COUGH AGAIN AND HAVING ANOTHER SIMILAR EPISODE BEFORE. PT SITS UP ON SIDE OF BED WHEN THESE EPISODES HAPPEN, AND SP02 CAN DROP DOWN SOME. PT WHEEZING THROUGHOUT, AND WHEN HAVING THE COUGH, DEFINITELY SHOWS INCREASED SIGNS OF INCREASED WORK OF BREATHING. RT CALLED AND 1600 SCHEDULED NEB TX PROVIDED. PT STATES HER NOSE AND SINUSES FEEL VERY DRY AND CONGESTED AT THE SAME TIME. NASAL SALINE SPRAY ORDERED FOR PATIENT TO USE. SP02 IS 98% NOW ON 2 L NC. WILL CONTINUE TO MONITOR. PT TO TRANSFER TO MED/SURG 123 WHEN ROOM AVAILABLE.
--- NOTE | 2021-05-24 17:22 | NUR ---
Pt arrives to [place] unit via bed from CCU. Assessment complete. Tele in place, pt on 2L NC, IVF infusing WNL. Pt has no needs or SOB at this time.
--- NOTE | 2021-05-24 18:20 | NUR ---
Rounded on patient who is resting in bed on 2L NC O2. Eyes closed and respirations even and unlabored. No needs identified at this time. Call light in reach.
--- NOTE | 2021-05-24 19:44 | NUR ---
SBA FROM BEDSIDE COMMODE TO BED. PATIENT IS SITTING AT THE EDGE OF THE BED. NOTED HAVING SOB. PATIENT STATED " I AM OKAY". PATIENT DENIES ANY FURTHER CARE NEEDS AT THIS TIME. CALL LIGHT WITHIN REACH.
--- NOTE | 2021-05-24 19:48 | NUR ---
RECEIVED REPORT FO DAY SHIFT RN. PATIENT IS RESTING IN BED WATCHING TV. PATIENT DENIES ANY NEEDS. CALL LIGHT IN REACH.
--- NOTE | 2021-05-24 20:17 | NUR ---
PT CALLED SAID SHE COULDN'T BREATH. SITTING ON EDGE OF BED, PANIC BREATHING, O2 IN PLACE, SATS 90. DR FERRER IN ROOM SHE WAS WALKING BY PT ROOM. NEB TREATMENT, PT CALMED DOWN PRIOR TO ADMINISTRATION. STATES SHE HAS TO REMEMBER TO RELAX, AND NOT PANIC. CURRENTLY SATS 91 ON 2L, RECEIVING NEB TREATMENT PER MAY. DR FERRER REVIEWED I/O, STATED AFTER THIS BAG FLUIDS, APPROX 125 CC LEFT, TO SL PT. WILL PUT IN ORDER, IF DID NOT. NO OTHER NEEDS AT THIS TIME.
--- NOTE | 2021-05-24 21:53 | NUR ---
PATIENT ASSESMENT COMPLETED. PATIENT DENIES ANY SOB. PATIENT IS ON 2L VIA NC. PATIENT DENIES ANY NEEDS CALL LIGHT IN REACH.
--- NOTE | 2021-05-25 00:14 | NUR ---
PATIENT IS RESTING IN BED WITH EYES CLOSED, RR 19. PATIENT IS ON TELE #2 HR 83. CALL LIGHT IN REACH.
--- NOTE | 2021-05-25 02:00 | NUR ---
ANSWERED CALL LIGHT. SBA TO BEDSIDE COMMODE. NOTICED SHORTNESS OF BREATHE. PATIENT REQUESTED FOR TREATMENT. PRIMARY RN NOTIFIED. PATIENT IS BACK IN BED SITTING AT THE EDGE. ICE WATER REFILLED. CALL LIGHT IN REACH.
--- NOTE | 2021-05-25 02:05 | NUR ---
PATIENT ASSISTED TO THE BSC. PATIENT PAMELA TO VOID. PATIENT IS BACK IN BED RESTING. PRN NEB GIVEN FOR SOB. PATIENT REMAINS ON 2L VIA NC. NO FURTHER NEEDS NOTED. CALL LIGHT IN REACH.
--- NOTE | 2021-05-25 04:42 | NUR ---
PATIENT IS RESTING IN BED WITH EYES CLSOED, RR 19. CALL LIGHT IN REACH.
--- NOTE | 2021-05-25 05:49 | NUR ---
PATIENT RESTED WELL THROUGHOUT THE SHIFT. PATIENT IS ON A REG DIET, TOLERATING WELL, NO COMPLAINTS OF NASUEA. PATIENT IS ON 2L VIA NC. SOB W/ACTIVITY. SBA TO BSC. PATIENT IS ON TELE #2, SR HR IN THE 80-90. PATIENT IS AAOX4. PATIENT IS A DW.
--- NOTE | 2021-05-25 06:14 | NUR ---
PATIENTS VITALS TAKEN AND RECORDED. INTAKE AND OUTPUT RECORDED. PATIENTS DAILY STANDING WEIGHT OBTAINED AND RECORDED. PATIENT REMAINS ON 2L VIA NC. PATIENT PROVIDED WITH FRESH ICE WATER. NO FURTHER NEEDS NOTED. CALL LIGHT IN REACH.
--- NOTE | 2021-05-25 07:15 | NUR ---
Report received from Kane ROBLERO. Pt resting in bed with 2L O2 NC in place. No needs at this time. Will continue plan of care
--- NOTE | 2021-05-25 07:21 | EKG ---
[facility] [address] [facility] [place] [address] Signed Sinus tachycardia Rightward axis Pulmonary disease pattern Septal infarct (cited on or before 03-FEB-2019) Abnormal ECG When compared with ECG of 03-FEB-2019 10:16, Questionable change in initial forces of Septal leads T wave inversion less evident in Anterior leads Confirmed by JESS FERRER MD ([id number]) on 05/25/2021 7:21:32 AM Electronically Signed By: JESS FERRER MD 05/25/21 0721 PATIENT NAME: ALEX JIMENEZ Electrocardiogram DATE OF : 60 PHYSICIAN: JESS FERRER MD REPORT #: [id number] REPORT IS CONFIDENTIAL AND NOT TO BE RELEASED WITHOUT AUTHORIZATION
--- NOTE | 2021-05-25 09:45 | NUR ---
Scheduled medications administered and assessment complete. Pt occasionally has coughing episodes which she can deep breathe, pursed lip breathe, and work through ultimately with no pharmacologic interventions. Pt remains on 2L NC O2. Able to take pills whole with water. VSS, A+O, I/Os charted. Made plan for shower later in day. No further needs, call light in reach.
--- NOTE | 2021-05-25 10:20 | NUR ---
PT RESTING IN BED, TV ON AND O2 MASK IN USE. PT REQUESTED IMAGING ASSISTANT TO VISIT TODAY-JUSTICE SUNDAY. WILL ARRANGE, GAVE BLESSING WILL FOLLOW
--- NOTE | 2021-05-25 11:13 | NUR ---
Pt states IV "hurting", IV ABX complete, site intact and WNL with no redness or swelling noted. Flushes well and pt states relief. IV dressing changed. Elevated on pillow, saline locked. Will continue to monitor for changes
--- NOTE | 2021-05-25 12:44 | NUR ---
ASSISTED PT UP TO BSC, 1P SBA. PT REQUESTED PRIVACY. PT CALL LIGHT WITHIN REACH. WILL CALL WHEN SHE IS FINISHED.
--- NOTE | 2021-05-25 12:55 | NUR ---
PT BACK IN BED, CALL LIGHT WITHIN REACH
--- NOTE | 2021-05-25 13:00 | NUR ---
PRN tylenol administered for headache
--- NOTE | 2021-05-25 14:45 | NUR ---
Spoke with pt and she states she had a "bad". Not feeling well. RT in the room and attempted trial of off o2 as she use 02 at home nights only. Pt did not tolerate. Notified by Dr. Moy pt will be made IP and stay another day as she is not dischargeable.
--- NOTE | 2021-05-25 15:00 | NUR ---
Pts caregiver Mahsa called for update, pt gives permission to discuss condition, updated CG
--- NOTE | 2021-05-25 16:00 | NUR ---
PT UP TO RESTROOM AND SHORT OF BREATH. PT DECLINED SHOWER DUE TO BEING SHORT OF BREATH. PT NOW BACK TO SITTING ON EDGE OF BED WITH PHONE AND CALL LIGHT. NO FURTHER NEEDS AT THIS TIME.
--- NOTE | 2021-05-25 18:33 | NUR ---
VSS and I/Os completed. Pt on 2L NC with no needs. HOB elevated. Pts daughter in to visit.
--- NOTE | 2021-05-25 19:30 | NUR ---
SHIFT REPORT RECEIVED FROM OSBALDO MARTIN. PT ALERT/ORIENTED, VISITING WITH DAUGHTER. 2L O2 VIA NC IN PLACE. TELE #2. PT DENIES NEEDS AT THIS TIME, CALL LIGHT WITHIN REACH.
--- NOTE | 2021-05-25 21:00 | NUR ---
PT APPEARS TO BE SLEEPING, NO APPARENT DISTRESS. OXYGEN REMAINS IN PLACE AT 2L.
--- NOTE | 2021-05-25 21:21 | NUR ---
ELIJAH DISCUSSED TELE ORDER WITH MD. ELIJAH QUAN AT THIS TIME.
--- NOTE | 2021-05-25 22:15 | NUR ---
PT WOKEN UP FOR ASSESSMENT AND VITALS, SLIGHTLY DROWSY BUT ORIENTED. DENIES PAIN. LUNGS WHEEZY THROUGHOUT, 2L O2 VIA NC IN PLACE. TELE D/C'D, REMOVED. HR REGULAR. BOWEL TONES ACTIVE. IV PATENT, INTACT, AND SALINE LOCKED. SKIN AND CMS INTACT, NO EDEMA NOTED. PT DENIES NEEDS, CALL LIGHT WITHIN REACH.
--- NOTE | 2021-05-26 01:15 | NUR ---
PT UP TO BSC WITH PACK WORKER SUPERVISOR TO VOID. NOW BACK IN BED, SITTING AT SIDE. BED ALARM ON FOR SAFETY. DENIES FURTHER NEEDS.
--- NOTE | 2021-05-26 01:54 | NUR ---
PT SITTING UP IN BED, PLAYING ON CELLPHONE. REPORTS FEELING ANXIOUS, SAT AND TALKED WITH HER A WHILE. DENIES SOB OR NEED FOR BREATHING TREATMENT. OFFERED HER MELATONIN TRY AND HELP HER SLEEP, BUT SHE DECLINED STATING THAT IT DOESN'T WORK FOR HER. DENIES NEEDS AT THIS TIME. CALL LIGHT WITHIN REACH.
--- NOTE | 2021-05-26 05:02 | NUR ---
ASSESSMENT COMPLETED. ALERT/ORIENTED, DENIES PAIN. PT REPORTS ANXIETY, STATES SHE IS AFRAID OF PROGNOSIS R/T COPD. DISCUSSED SMOKING CESSATION WITH PT, NIO ORDER CHANGED BECAUSE PT STATES SHE CAN'T USE LOZENGES WITH HER DRY MOUTH, PATCH ORDERED AND APPLIED, PT STATES SHE THINK IT MIGHT HELP WITH HER ANXIETY. PT AMBULATED TO BR, DYSPNEIC WITH ACTIVITY, OXYGEN TITRATED TO 6L NC DURING ACTIVITY FOR COMFORT, BACK TO 2L ONCE BACK IN BED. DAILY WEIGHT: 69.1 KG. FRESH ICE WATER PROVIDED. R.T. NOW IN ROOM TO GIVE BREATHING TREATMENT.
--- NOTE | 2021-05-26 07:27 | NUR ---
REPORT RECEIVED FROM OSBALDO ALICEA. PT RESTING IN BED. AWAKE AND ALERT AND RESPONDING TO QUESTIONS APPROPRIATLY. PT RPEOST 3/10 HEADACHE, DENIES NEED FOR MEDICATION AT THIS TIME. CAFENATED TEA PROVIDED. PT DENIES ADDITONAL REQUESTS OR COMPLAINTS. CALL LIGHT WITHIN REACH. THIS RN ASSISTING WITH MARIAN SANTOS RN ASSUMING PRIMARY CARE OF PT.
--- NOTE | 2021-05-26 07:45 | NUR ---
IN ROOM WITH PRIMARY RN CONNOR AND TRAINING RN MARIAN FOR BEDSIDE REPORT GIVEN BY GRANITE COUNTERTOP INSTALLER RN. PT SITTING UP IN BED ON PHONE. REPORTS HEADACHE 3/ BUT DENIES NEED FOR PAIN MEDICATION. NO FURTHER NEEDS AT THIS TIME. CALL LIGHT IN REACH.
--- NOTE | 2021-05-26 07:47 | NUR ---
Patient resting in her bed at this, mild anxiety per the patient with a mild headache that she doesnt need any medication for. Bedside report was given at the bedside.
--- NOTE | 2021-05-26 08:15 | NUR ---
RESPIRATORY THERAPY IN ROOM W/ PATIENT AT THIS TIME FOR NEBULIZER TREATMENT.
--- NOTE | 2021-05-26 08:35 | NUR ---
Patient completed her breakfast, Plan of care was discussed with the patient, her nursing professor, OSBALDO Singleton and myself. She was very receptive
--- NOTE | 2021-05-26 09:20 | NUR ---
IN ROOM WITH PATIENT FOR MORNING ASSESSMENT. A&O X4 BUT C/O "FOGGY THINKING". MEMORY INTACT. HR 95, BP 148/98, MAP 110, TEMP 97.2F, RR 24, O2 93% 3L NC. CONSULTED WITH INSTRUCTOR ABOUT ELEVATED BP & MAP. NO INTERVENTION NEEDED. CARDIAC ASSESSMENT WNL. RESPIRATORY ASSESSMENT WHEEZING AND LOWER LOBES SLIGHTLY DIMINISHED. BOWEL SOUNDS IN ALL 4 QUADRANTS AND PT DOES NOT REPORT TENDERNESS OR PROBLEMS. PT REPORTS DRY MOUTH THAT IS BOTHERING HER. LEMON SWABS PROVIDED. MEDICATIONS IN MAR GIVEN WITH INSTRUCTOR. OFFERED PT SHOWER AND SWABS FOR MOUTH BUT SHE SAID SHE WOULD LIKE TO REST AND DO THAT THIS PM. WILL OFFER AGAIN AFTER LUNCH. CALL LIGHT IN REACH. NO OTHER NEEDS AT THIS TIME.
--- NOTE | 2021-05-26 09:35 | NUR ---
THIS RN TO ROOM TO CHECK ON PT. PT SITTING UP IN BED. WANDA, RT TO BEDSIDE FOR HOME OXGYEN QUALIFING TEST. PT REPORTS FEELINGS OF SHORTNESS OF BREAT AND REPORTS "I'M JUST SCARED" STATING THAT HER BREATHING IS "NOT THE SAME." PT REPORTS HER LEFT CHEST FEELS "HARDER" TO BREATH COMPAIRED TO HER RIGHT CHEST. PT ABLE TO TALKE IN 5-10 WORD SENTENCES. LUNG SOUNDS REMAIN HALLOW WITH INCREASED AIRATION. PT REMAINS ON 2L O2 BY NC AT THIS TIME. STUDENT NURSE GIVING MORNING MEDICAITONS WITH HER PRECEPTOR. EDUCATION DONE WITH PT REGARDING PLAN OF CARE AND COPD DISEASE PROCESS. PT VERBALIZES UNDERSTANDING AND STATES SHE IS GREATFUL FOR THE EXPLAINATION. NO ADDITIONAL REQUESTS OR COMPLAINTS. CALL LIGHT WITHIN REACH.
--- NOTE | 2021-05-26 09:46 | NUR ---
THIS RN TO ROOM TO CHECK ON PT. PT RESTING IN BED WITH EYES CLOSED. OXGYEN NOT IN PLACE. PT RESPONDS TO VOICE AND ASSISTS THIS RN WITH PLACING 2L O2 BY NC WHILE SLEEPING. PT REPORTS 7/10 ONGOING CRAMPING PAIN IN LEFT LOWER QUADRANT. PT DECLINES ADDITONAL PAIN MEDICAITON. PT DENIES NAUSEA AT THIS TIME. ABDOMEN REMAINS SOFT BUT OBESE. PT DENIES ADDITIONAL REQUESTS OR COMPLAINTS. CALL LIGHT WITHIN REACH. BED RAILS UP.
--- NOTE | 2021-05-26 10:30 | NUR ---
IN PT ROOM TO CHANGE DEPENDS. FULLY SATURATED. PT DESAT TO 85% ON 3L WHEN MOVING, UPPED TO 4L FOR COMFORT DURING CHANGE. O2 BACK TO 3L AFTER. PT REPORTED ITCHING AND BURING AT IV SITE. INFORMED RNS & INSTRUCTOR. IV HAD INFILTRATED W/ AZITHROMYCIN ACTIVELY RUNNING. PHARMACY CALLED AND RECOMMENDED HOT COMPRESS. IV DISCONTINUED, COMPRESS APPPLIED. NEW IV STARTED IN L HAND BY SN. PT DID NOT REPORT PAIN. FLUSHED EASILY WITH 10ML NS. DRESSING APPLIED AND IV ANTIBIOTICS RESTARTED. NO FURTHER NEEDS AT THIS TIME. CALL LIGHT IN REACH.
--- NOTE | 2021-05-26 10:35 | NUR ---
PATIENT SEAT AT THE EDGE OF BED, CHIEF GAUGER AND THE INSTUCTOR ARE AT BEDSIDE. THE PATIENT REMAINS SLIGHTLY ANXIOUS AT THIS TIME. pER THE PATIENT SHE IS A LITTLE LESS ANXIOUS.
--- NOTE | 2021-05-26 10:50 | NUR ---
Patient's IV infiltrated, IV Zithromax was infusing. The medication has been stopped and a new IV is being placed by the Real Estate Loan Processor and Areli ROBLERO. Heat has been appliled to the infiltrated site.
--- NOTE | 2021-05-26 11:03 | NUR ---
THIS RN CALLED TO ROOM BY OSBALDO FONSECA. PTS RIGHT AC IV INFILTRATED WHILE IV AZYTRHOMYCIN WAS RUNNING. IV DC'D PER PROTOCOL (BY MARIAN RN), GAUZE AND COBAN APPLIED. PHARAMCIST CALLED BY THIS RN AND STATES TO PLACE A HEAT PACK OVER SITE. HEAT PACK PROVIDED. PT VERBALIZES UNDERSTANDING THAT SHE WILL REMOVE HEAT PACK IF IT BEGINS TO FEEL TOO WARM. PT REPORTS SITE ITCHES. NEW IV STARTED PER PROTOCOL TO LEFT HAND BY STUDENT NURSE, LUIS F, WITH ASSISTANCE FROM THIS RN. BRISK BLOOD RETURN NOTED WITH IV START. LINES FLUSHES EASILY. PT DENIES S/S OF PHLEBITIS. IV ABX STARTED AT LEFT HAND IV SITE. PT ASSITED BACK INTO BED TO REST. PT REPORTS HER BREATHING IS "OK, IT COMES AND GOES." CURRENTLY 95% ON 2L O2 BY TX. PT RESTING IN BED, HEAD OF BED ELEVATED TO 48 DEGREES. BED RAILS UP. CALL LIGHT WITHIN REACH. NO ADDITIONAL REQUESTS OR COMPLAINTS AT THIS TIME.
--- NOTE | 2021-05-26 11:56 | NUR ---
PT TO SIDE OF BED FOR LUNCH. TALKING ON THE PHONE. IV ABX DISCONTINUED BY RN. PT REPORTS NO FURTHER PROBLEMS WITH IV OR MEDICATION. DENIES FURTHER NEEDS AT THIS TIME. CALL LIGHT IN REACH.
--- NOTE | 2021-05-26 12:26 | NUR ---
patient eating at the edge of bed. Patient's IV was flushed, and her infiltrated site was reassessed and the heat was removed.
--- NOTE | 2021-05-26 13:36 | NUR ---
PT SITTING ON SIDE OF BED-OSBALDO RYAN AND IN CARING FOR PT. PT APPEARS TO FEEL MUCH BETTER-O2 NC IN USE. PT WOULD LIKE TO HAVE FR ULLOA COME BY AND WOULD LIKE A ROSARY-PROVIDED. GAVE BLESSING AND WILL FOLLOW
--- NOTE | 2021-05-26 14:14 | NUR ---
Patient resting on her right side, with her oxygen tubing in her mouth. She states she still wants to try and shower, just wants to rest at this time.
--- NOTE | 2021-05-26 14:17 | NUR ---
IN PT ROOM FOR 1400 VS. PT RESTING ON SIDE WITH EYES CLOSED. PT STATES "HASNT BEEN SLEEPING WELL AND JUST WANTS TO REST RIGHT NOW". LET HER KNOW ABOUT PRN HS MELATONIN ORDER AND SAID SHE MIGHT WANT THAT LATER TONIGHT. PT DENIES NEED TO USE RESTROOM OR ANY OTHER NEEDS AT THIS TIME. CALL LIGHT IN REACH.
--- NOTE | 2021-05-26 16:42 | NUR ---
Spoke with pt. States she is afraid to go home. 02 qualifier shows need for 02 3 L at at rest and 4-6 with activity. States she does not want a tank at home as she has a concentrator. Discussed concentrator only works with power, needs a tank as back up and also to go home, appts, etc. Pt states understanding. Discussed a Life Alert and pt states she will think about it. I also suggested she have a friend or family stay with her for a few days. She states she has a lot of anxiety and uses [facility]. Suggested she start seeing them again for counseling.
--- NOTE | 2021-05-26 17:42 | NUR ---
Patient attempted a shower, but was unsuccessful. She became tachypneic, need increased oxygen and to sit in bed prior to her breathing to ease. She told the student its like it wasn't her anxiety but something with the temperature change in the room. And she continues to verbalize her extreme anxiety of returning home, she believes she needs 1-2 more days.
--- NOTE | 2021-05-26 18:00 | NUR ---
ATTEMPTED TO GET PT UP TO SHOWER. TOLERATED MOVING TO BATHROOM WITH WALKER. ATTEMPTED TO USE TOILET THEN SAT IN SHOWER CHAIR. PT REPORTED THAT AFTER PUTTING WATER ON TEMP CHANGE MADE IT VERY DIFFICULT TO BREATHE. SUGGESTED SLOW DEEP BREATHS BUT DID NOT HELP. PT TRIPOD ON SHOWER CHAIR AND UNABLE TO FINISH. TITRATED OXYGEN UP FROM 3L. DID NOT FIND RELIEF UNTIL O2 UP TO 6L. ASSISTED BY ANOTHER SN TO RINSE, DRY, & DRESS PT. BEDDING CHANGED AT THIS TIME. 2 PERSON STAND BY BACK TO BED. PT DENIES ANY PAIN AT THIS TIME. PT EXPRESSED A LOT OF FEAR ABOUT D/C TOMORROW. SUGGESTED SHE SEE IF HER DAUGHTER WHO [place] COULD COME STAY WITH HER AND SHE SAID SHE MIGHT BE ABLE TO FOR A COUPLE HOURS PER DAY. PT STILL STATES SHE IS "TERRIFIED" AND DOES NOT WANT TO D/C TOMORROW. PT NOW ON EDGE OF BED WITH DINNER. O2 TITRATED BACK TO 3L. NO FURTHER NEEDS AT THIS TIME. CALL LIGHT IN REACH.
--- NOTE | 2021-05-26 18:53 | NUR ---
patient is breathing easier at this time, she is resting in bed, doesnt want to eat at this time. Continues to not want to walk
--- NOTE | 2021-05-26 18:54 | NUR ---
Patient needs lots of encouragement. She needs lots of reinforcment of the disease process of COPD especially after having COVID. MD wanting to discharge her home suze., Continue to attempt to have her walk. RT has already seen her for home re-evaluation of oxygen.
[2021-05-26] MEDS ORDERED: NICOTINE GUM2 MG MM (19:02)
--- NOTE | 2021-05-26 22:40 | NUR ---
Patient's vitals were 160/99. Map was 114. RN was notifed. Patient via BSC with 1PA. Patient is on 2LNC. Patient said "I feel like I'm not getting air". Patient's oxygen level was checked with pulse ox. It was low and immediately the RNs were notified. They adjusted the oxygen and the patient's oxygen is normally, currently sitting at 93. Call light is in reach and patient is resting and comfortable.
--- NOTE | 2021-05-27 00:58 | NUR ---
PT ALERT AND SITTING UP IN BED. STATES THAT SHE THINKS SHE IS DYING BUT NO ONE IS TELLING HER. STAYED WITH PT TO TRY TO SOOTHE HER. SPOKE WITH PHYSICIAN ABOUT ANTIANXIETY MEDS. PT REFUSED WHAT WAS OFFERED. PT DID ACCEPT MELATONIN.
--- NOTE | 2021-05-27 07:20 | NUR ---
pt was emotional througout the shift. Otherwise an uneventful night.
--- NOTE | 2021-05-27 07:22 | NUR ---
Patient's BP was 151/105. Map was 113. 87 Pulse. Left arm BP cuff. Resp. 20. RN notified. Patient has call light in reach.
--- NOTE | 2021-05-27 08:05 | NUR ---
Faxed face sheet, Rx, H&P, progress notes to [facility] with update pt now requiring a high amt of 02 and a tank in the home. Pt already has an 02 concentrator.
--- NOTE | 2021-05-27 08:30 | NUR ---
SHIFT REPORT RECIEVED WITH OSBALDO RAYO AND OSBALDO WINSTON FROM [employer] SUPPORT MANAGER NURSE. IN PT ROOM THIS MORNING. PT SITTING UP IN BED. DENIES PAIN AT THIS TIME. MORNING MEDS GIVEN BY OSBALDO GREENE. PT UP TO BEDSIDE COMMODE. O2 TITRATED UP TO 4L FOR COMFORT WITH ACTIVITY. WHILE ON COMMODE, PT O2 DROPPED AND PT WAS VERY ANXIOUS. TALKING ABOUT NOT WANTING TO GO HOME, "NOTHING FEELS RIGHT, I CANT FUNCTION". PT ALSO COMPLAINS OF CHEST TIGHTNESS AND TREMORS IN FEET AT THIS TIME. O2 TITRATED UP TO 6L AND NASAL CANNULA TRADED FOR MASK. PT CALMED DOWN AND WAS ABLE TO TITRATE BACK DOWN TO 4L. PT BED, GOWN, AND DEPENDS CHANGED. VS TAKEN. BP & MAP HIGH. INFORMED OSBALDO WINSTON. RT IN ROOM WITH PT FOR MORNING TREATMENT. CALL LIGHT WITHIN REACH. NO FURTHER NEEDS AT THIS TIME.
--- NOTE | 2021-05-27 09:07 | NUR ---
IN TO GIVE PT MORNING MEDS. PT ON COMMODE WITH STANDBY ASSIST WITH STUDENT NURSE. DUE TO SOME INCONTINENCE, LINENS CHANGED, NEW GOWN PROVIDED. PT REPORTS BEING VERY ANXIOUS, AND CONTINUES TO FEEL SHORT OF BREATH. PT MOUTH BREATHING, OXYMASK REPLACING NC FOR COMFORT. PT REPORTS CONCERNS ABOUT BEING DISCHARGED TODAY, SHE LIVES HOME ALONE, AND DOES NOT FEEL SHE CAN CARE FOR HERSELF. WILL RELAY THIS TO MD. PT ASSISTED BACK TO BED, STUDENT NURSE REMAINS AT BEDSIDE FOR COMFORT AND REASSURANCE OF PT. EXPIRATORY WHEEZES HEARD THROUGHOUT LUNGS, RT AT BEDSIDE FOR MORNING NEB TREATMENT.
--- NOTE | 2021-05-27 10:14 | NUR ---
IN ROOM TO GIVE MEDS, RECHECK VS, RECORD I&OS. BP STILL HIGH BUT BP MED GIVEN. PT ALSO WILLING TO TRY ANTIANXIETY MED. GIVEN. PT STATES O2 FEELS TOO HIGH. 97% ON 4L. LOWERED TO 3L NOW MAINTAINING 90-92%. RU IN ROOM, FATHER CHRISTEN TO VISIT LATER. PT AGREES TO TRY AMBULATION BEFORE NEXT BREATHING TREATMENT. NO FURTHER NEEDS AT THIS TIME. CALL LIGHT IN REACH.
--- NOTE | 2021-05-27 11:30 | NUR ---
PT. AMBULATED WITH FWW AND 1 PA ON 3L O2 OXYMASK. PT. C/O SOB AND CHEST TIGHTNESS AND SAT DOWN AFTER 5 STEPS. AFTER SEVERAL MINUTES PT. RECOVERED AND WALKED A FEW MORE STEPS BEFORE SITTING AND WHEELED BACK TO BED. O2 SAT WAS 88% AFTER AMBULATING. LEFT RESTING ON EOB WITH STUDENT RN AT BEDSIDE.
--- NOTE | 2021-05-27 11:41 | NUR ---
PT UP TO AMBULATE W/ GIRMA RN. PT MADE IT OUT OF ROOM AND NEEDED A BREAK. C/O CHEST TIGHTNESS AND HIP PAIN W/ SOB. PT WANTED TO MAKE IT TO DOOR CLOSEST TO ROOM AND COMPLETED SUCCESSFULLY. WHEELCHAIR BACK TO ROOM AND PT SITTING ON EDGE OF BED. O2 88% ON 4L AFTER AMBULATION. PT DENIES FURTHER NEEDS AT THIS TIME. CALL LIGHT IN REACH.
--- NOTE | 2021-05-27 12:25 | NUR ---
PT LAYING IN BED, O2 MASK ON AND SN ATTENDING. PT MENTIONED SHE HAS HAD A ROUGH DAY-DECIDED SHE WANTED FR VELÁSQUEZ TO VISIT. NOTIFIED HIM. GAVE BLESSING WILL FOLLOW NEEDED
--- NOTE | 2021-05-27 13:01 | NUR ---
PT SITTING UP IN BED, VISITING WITH FRIEND. PT APPEARS VERY RELAXED, AND STATES SHE IS FEELING VERY CALM. FATHER CHRISTEN HERE TO SEE PT. NO REQUESTS OR NEEDS AT THIS TIME.
--- NOTE | 2021-05-27 14:00 | NUR ---
Spoke with R, they just completed a resp treatment. Do not feel this pt can safely dc to home today. He is notifing the
--- NOTE | 2021-05-27 14:10 | NUR ---
PATIENT RESTING IN BED, EYES CLOSED AND 3L NC IN PLACE. VITALS AND I&OS CHARETD. PATIENT REFUSED LUNCH, REQUESTS ONLY AND ENSURE, WHICH IS ON HER BEDSIDE TABLE. CALL LIGHT IN REACH, NO OTHER NEEDS AT THIS TIME
--- NOTE | 2021-05-27 14:30 | NUR ---
ROUNDING ON PT. SHE IS ALERT AND ORIENTED TO ALL. SITTING UPRIGHT IN BED. BREATHING IS EVEN AND UNLABORED. RR IS 19. SHE IS ON 3L NC AND O2 SAT IS 94%. SHE DENIES PAIN OR ANXIETY AT THIS TIME. WHEEZES PRESENT THROUGHOUT LUNGS. PT. DENIES FURTHER NEEDS AND LEFT RESTING WITH CALL LIGHT IN REACH.
--- NOTE | 2021-05-27 19:15 | NUR ---
pt RESTING IN BED, EYES CLOSED. RR EVEN AND UNLABORED, NO DISTRESS NOTED. 3LNC IN PLACE, CALL LIGHT IN REACH. BOARD UPDATED.
--- NOTE | 2021-05-27 21:30 | NUR ---
pt CONTINUES TO REST IN BED WITH EYES CLOSED, RR EVEN AND UNLABORED. NO DISTRESS NOTED, 3LNC REMAINS IN PLACE.
--- NOTE | 2021-05-27 23:06 | NUR ---
ASSESSMENT COMPLETE, SCHEDULED MEDS GIVEN (SEE EMAR). pt A/OX4, DENIES PAIN AND NAUSEA. IV SITE WNL, FLUSHES EASILY. SCATTERED WHEEZING NOTED, pt DENIES SOB AT REST BUT REPORTS DYSPNEA WITH EXERTION. NO DISTRESS CURRENTLY NOTED, WILL MONITOR. NO FURTHER NEEDS AT THIS TIME, SHOULDER JOINER NESTOR TO ASSIST pt TO BSC TO VOID.
--- NOTE | 2021-05-27 23:30 | NUR ---
REJI YORK CALLED AND ASKED FOR pt UPDATE, UPDATE PROVIDED AND QUESTIONS ANSWERED. THIS RN THEN WENT TO pt's ROOM AND FOUND pt AWAKE AND RESTING ON EDGE OF BED TALKING TO REJI MORENO. NOTE LEFT AT RN STATION, REPORTING THAT CAREGIVER KAMRAN, CALLED AND ASKED FOR pt UPDATE. PER pt, CAREGIVER KAMRAN HAS BEEN CALLING pt FREQUENTLY ASKING HOW pt IS DOING. PER pt, OKAY TO GIVE CAREGIVER KAMRAN pt UPDATE IF KAMRAN CALLS AGAIN. NO FURTHER NEEDS VERBALIZED, CALL LIGHT IN REACH.
--- NOTE | 2021-05-28 02:18 | NUR ---
pt RESTING IN BED, EYES CLOSED. 3LNC REMAINS IN PLACE, RR EVEN AND UNLABORED. NO DISTRESS NOTED. WILL CONTINUE TO MONITOR. CALL LIGHT IN REACH.
--- NOTE | 2021-05-28 06:06 | NUR ---
ASSESSMENT COMPLETE. VSS AND I&O'S COMPLETE. DBP ELEVATED, BUT WITHIN PARAMETERS. pt DENIES PAIN AND NAUSEA. REPORTS EXCITEMENT ABOUT BEING ABLE TO WALK INTO BATHROOM TO VOID. REPORTS DIFFICULTY HAVING BM, NIO FOR BOWEL CARE ORDERED, SEE EMAR. LAST BM CHARTED 05/25/21. NO FURTHER NEEDS, CALL LIGHT IN REACH.
--- NOTE | 2021-05-28 07:30 | NUR ---
THIS RN RECEIVED SHIFT REPORT FROM OSBALDO COHN. PATIENT RESTING QUIETLY ON HER RIGHT SIDE, RESPIRATIONS ARE REGULAR AND EVEN, EYES CLOSED, CALL LIGHT IN REACH. PATIENT HAS NO CARE NEEDS AT THIS TIME.
--- NOTE | 2021-05-28 08:57 | NUR ---
THIS RN IN TO SEE PATIENT. AM ASSESSMENT COMPLETE AND AM MEDS GIVEN. PATIENT LUNGS CLEAR ON THE LEFT, BUT EXP WHEEZES IN THE RIGHT LUNG BARRIOS. PATIENT HAD NO OTHER CARE NEEDS AT THIS TIME. CALL LIGHT IN REACH. RT HERE FOR NEB TREATMENT.
--- NOTE | 2021-05-28 11:05 | NUR ---
PATIENT RESTING QUIETLY IN BED ON HER RIGHT SIDE, PATIENT DENIES PAIN AND SAYS HE DOES GET A LITTEL SHORT OF BREATH WITH MOVEMENT. PATIENT HAS NO OTHER CARE NEEDS AT THIS TIME. CALL LIGHT IN REACH.
--- NOTE | 2021-05-28 13:00 | NUR ---
PATIENT'S LUNCH IS AT BEDSIDE, BUT PATIENT NOT READY TO EAT YET. "I'LL EAT IN A BIT." PATIENT DENIES ANY CARE NEEDS AT THIS TIME. CALL LIGHT IS IN REACH.
--- NOTE | 2021-05-28 15:10 | NUR ---
PATIENT RESTING QUIETLY ON HER RIGHT SIDE, EYES CLOSED, RESPIRATIONS ARE REGULAR AND EVEN, AND CALL LIGHT IS IN REACH. NO OTHER CARE NEEDS NOTED AT THIS TIME.
--- NOTE | 2021-05-28 17:05 | NUR ---
THIS RN IN TO GIVEN PATIENT MEDS AND EVENING ASSESSMENT COMPLETE. PATIENT MOVING MORE AIR BUT STILL HAX EXPIRATORY WHEEZE THOUGHOUT THE LUNG BARRIOS. PATIENT DENIES PAIN AND REMAINS ON 3L/NC. THIS RN HELPED PATIENT TO SIT UP FOR DINNER AND DINNER TRAY ON BEDSIDE TABLE. PATIENT HAS NO OTHER CARE NEEDS AT THIS TIME. CALL LIGHT IS IN REACH.
--- NOTE | 2021-05-28 19:20 | NUR ---
SHIFT REPORT RECEIVED FROM DAYSHIFT OSBALDO ENCINAS AT BEDSIDE. pt RESTING QUIETLY IN BED WITH EYES CLOSED, RR EVEN AND UNLABORED. NO DISTRESS NOTED, CALL LIGHT IN REACH.
--- NOTE | 2021-05-28 22:40 | NUR ---
IN TO GET VITALS, PT VOIDED RECENTLY, PT RESTING AWAKES TO VOICE, NO FURTHER NEEDS
--- NOTE | 2021-05-28 23:25 | NUR ---
ASSESSMENT COMPLETE, SCHEDULED MEDS GIVEN, SEE EMAR. pt DROWSY, AWOKE TO VOICE. DENIES PAIN AND NAUSEA. IV SITE WNL, FLUSHES EASILY. pt DENEIS SOB AND DYSPNEA. VSS, 3LNC IN PLACE. SOME EXP WHEEZES NOTED. NO FURTHER NEEDS, CALL LIGHT IN REACH.
--- NOTE | 2021-05-29 00:31 | NUR ---
PT CALLED FOR HELP TO THE BSC. SHE VOIDED 550MLS OF URINE AND IS NOW BACK IN BED. PT DENIES FURTHER NEEDS. CALL LIGHT IS CLOSE.
--- NOTE | 2021-05-29 02:24 | NUR ---
pt RESTING IN BED, ON 3LNC. RR EVEN AND UNLABORED, NO DISTRESS NOTED. WILL CONTINUE TO MONITOR. CALL LIGHT IN REACH.
--- NOTE | 2021-05-29 04:20 | NUR ---
assessment complete, no acute changes. pt allowed to rest, eyes closed. rr even and unlabored. exp wheezes auscultated with right upper lobe. iv remains wnl, saline locked. 3lnc remains in place, call light in reach.
--- NOTE | 2021-05-29 06:38 | NUR ---
VSS AND I&OS COMPLETE. SCHEDULED IV STERIOD GIVEN, SEE EMAR. IV SITE WNL. NO FURTHER NEEDS, FRESH WATER PROVIDED. CALL LIGHT IN REACH.
--- NOTE | 2021-05-29 07:30 | NUR ---
SHIFT REPORT RECEIVED BY THIS RN FROM OSBALDO COHN. PATIENT SITTING UP AT BEDSIDE, DENIES PAIN, DENIES SHORTNESS OF BREATH, DENIES ANY OTHER CARE NEEDS AT THIS TIME. CALL LIGHT IN REACH.
--- NOTE | 2021-05-29 08:00 | NUR ---
patient is sitting up in the bed, waiting for breakfast. warm washcloth offered and taken. call light with in reach no further needs at this time.
--- NOTE | 2021-05-29 08:53 | NUR ---
AM ASSESSMENT COMPLETE. PATIENT WHEEZT IN THE RIGHT LUNG BARRIOS AND DIM IN THE LEFT. PATIENT DENIES PAIN, BUT IS ANXIOUS AND ANXIETY MED GIVEN. IV FLUSHED. ALL AM MEDS GIVEN. PATIENT HAD NO OTHER CARE NEEDS AT THIS TIME. CALL LIGHT IS IN REACH.
--- NOTE | 2021-05-29 11:00 | NUR ---
THIS RN CHECKED IN WITH PATIENT TO SEE IF HER ANXIETY IS BETTER. PATIENT INFORMED ME THE MEDICATION WORKED AND SHE WAS DOING OK NOW. CALL LIGHT IN REACH. NO OTHER CARE NEEDS AT THIS TIME.
--- NOTE | 2021-05-29 12:05 | NUR ---
PATIENT SITTING IN THE BED EATING LUNCH. GOT UP TO USE THE RESTROOM, AND WENT BACK TO BED. CALL LIGHT WITH IN REACH. WATER REFRESHED, NO FURTHER NEEDS AT THIS TIME.
--- NOTE | 2021-05-29 13:35 | NUR ---
OSBALDO SPARKS WENT IN AND GAVE THE PATIENT COUGH MEDICATIONS FOR THIS RN. OSBALDO SPARKS REPORTED THIS WAS DONE AND THAT PATIENT HAD NO OTHER NEEDS AT THIS TIME.
--- NOTE | 2021-05-29 14:30 | NUR ---
WENT IN ROOM TO DO VITALS. PATIENT IS SITTING IN THE BED WATCHING PHONE. SHE GOT UP TO USE THE RESTROOM. WATER REFRESHED. VITALS WNL. CALL LIGHT WITHIN REACH. NO FURTHER NEEDS AT THIS TIME.
--- NOTE | 2021-05-29 15:00 | NUR ---
THIS RN IN TO TALK TO PATIENT AND DO ASSESSMENT. PATIENT HAS BILATERAL EXPIRATORY WHEEZES THOUGHOUT ALL LUNG BARRIOS, BUT PATIENT DENIES THE NEED FOR A PRN NEB AT THIS TIME. PATIENT INFORMED THIS RN THE COUGH MEDICATION WORKED WELL AND SHE HAS NOT BEEN COUGHING MUCH. PATIENT'S 1400 IV MEDS GIVEN. PATIENT HAS NO OTHER CARE NEEDS AT THIS TIME. CALL LIGHT IS IN REACH.
--- NOTE | 2021-05-29 17:48 | NUR ---
PT KOURTNEY REG DINNER, TRAY CLEARED. WATER FILLED. ENC FLUIDS. DENIES NEEDS OR PAIN.
--- NOTE | 2021-05-29 19:02 | NUR ---
SHIFT REPORT RECEIVED FROM DAYSHIFT OSBALDO ENCINAS AT BEDSIDE. pt AWAKE AND RESTING IN BED, 3LNC IN PLACE. NO DISTRESS NOTED, RR EVEN AND UNLABORED. pt REPORTS FEELINGS OF ANXIOUSNESS, WILL BRING PRN VISTARIL WITH EVENING MEDS. pt AGREES TO PLAN. CALL LIGHT IN REACH.
--- NOTE | 2021-05-29 20:58 | NUR ---
pt A/OX4, pt RESTING IN BED. DENIES PAIN AND NAUSEA. SCATTERED EXP WHEEZES NOTED, RT REGIS RECENTLY IN ROOM TO GIVE BREATHING TREATMENT. IV SITE WNL, REMAINS SALINE LOCKED. VSS, 3LNC IN PLACE. FRESH WATER PROVIDED. CALL LIGHT IN REACH.
--- NOTE | 2021-05-29 22:50 | NUR ---
SCHEDULED IV STERIOD GIVEN, SEE EMAR. IV SITE WNL, FLUSHES EASILY AND IS NOW SALINE LOCKED. NO FURTHER NEEDS, CALL LIGHT IN REACH. 2LNC IN PLACE, pt TITRATED EARLIER IN SHIFT BY RT
--- NOTE | 2021-05-29 23:48 | NUR ---
pt AWAKE AND RESTING IN BED, LISENING TO AUDIOBOOK. 2LNC IN PLACE, NO NEEDS OR CONCERNS VERBALIZED. CALL LIGHT IN REACH.
--- NOTE | 2021-05-30 01:41 | NUR ---
pt continues to rest in bed, eyes closed. rr even and unlabored, no distress noted. 2lnc in place. fresh water provided. call light in reach.
--- NOTE | 2021-05-30 02:55 | NUR ---
ANSWERED CALL LIGHT. SBA TO THE BATHROOM AND BACK TO BED. NO OTHER NEEDS AT THIS TIME.
--- NOTE | 2021-05-30 03:56 | NUR ---
ASSESSMENT COMPLETE, NO ACUTE CHANGES. pt RESTING IN BED WITH EYES CLOSED. RR EVEN AND UNLABORED. NO DISTRESS NOTED. pt ALLOWED TO REST, DID NOT AWAKEN pt. IV SITE WNL, REMAINS SALINE LOCKED. WILL MONITOR FOR CHANGES. CALL LIGHT IN REACH. 2LNC REMAINS IN PLACE.
--- NOTE | 2021-05-30 06:25 | NUR ---
SCHEDULED IV STERIOD GIVEN, SEE EMAR. IV SITE WNL, SALINE LOCKED. VSS, I&O'S COMPLETE. FRESH WATER GIVEN, SEE EMAR. CALL LIGHT IN REACH.
--- NOTE | 2021-05-30 06:54 | NUR ---
SBA TO RESTROOM WITH FWW. BM AND VOID. pt BACK IN BED, SOB. SITTING AT SIDE OF BED, PURSED LIP BREATHING. RT PHONED, pt REQUESTING BREATHING TREATMENT.
--- NOTE | 2021-05-30 07:00 | NUR ---
pt RECENTLY RETURNED FROM BATHROOM, SEE PREVIOUS NOTE FROM TEXTILE EXAMINER BAILEY. pt TITRATED FROM 2LNC TO 3LNC, SPO2 93%, HR 73. NO DISTRESS NOTED, CALL LIGHT IN REACH. PER TEXTILE EXAMINER, RT AWARE AND WILL COME GIVE BREATHING TREATMENT.
--- NOTE | 2021-05-30 07:30 | NUR ---
THIS RN RECEIVED SHIFT REPORT FROM OSBALDO COHN. PATIENT SITTING UP IN BED. RT HERE TO GIVE PATIENT A NEB TREATMENT. PATIENT HAS NO CURRENT CARE NEEDS FROM THIS RN. CALL LIGHT IS IN REACH.
--- NOTE | 2021-05-30 09:19 | NUR ---
Face to face and orders faxed to Dr. Scales office for pt to have HH ordered. Pt requested [facility].
--- NOTE | 2021-05-30 10:35 | NUR ---
OSBALDO MARTIN INFORMED ME PT REQUESTED TO VISIT WITH ME. STOPPED IN ON PT-SHE HAS A VISITOR. WILL CHECK BACK
--- NOTE | 2021-05-30 10:57 | NUR ---
PATIENT SITTING UP ON EDGE OF BED. VITALS AND I&O'S CHARTED. CALL LIGHT IN REACH. NO FURTHER NEEDS AT THIS TIME.
--- NOTE | 2021-05-30 12:01 | NUR ---
THIS RN IN TO CHECK ON PATIENT. PATIENT SAYS HER ANXIETY IS OK NOW AND SHE DID 1 LAB AROUND MED/SURG WITH PT AND SHE HAD TO STOP 3 TIMES BECAUSE SHE GOT WINDED, BUT WAS ABLE TO COMPLETE THE LAP. PATIENT SAYS SHE WILL BE WALKING WITH PT AGAIN THIS AFTERNOON. CALL LIGHT IS IN REACH.
--- NOTE | 2021-05-30 13:48 | NUR ---
PATIENT SITTING ON BED AT THIS TIME. VITALS AND I&O'S CHARTED. NO VOID, PATIENT SAID SHE WOULD GET UP AND TRY IN A LITTLE BIT, WILL CHECK BACK IN. CALL LIGHT IN REACH. NO FURTHER NEEDS AT THIS TIME.
--- NOTE | 2021-05-30 17:33 | NUR ---
Face sheet, rx, notes, H&P faxed to [facility] for a 4WW with a seat.
--- NOTE | 2021-05-30 19:05 | NUR ---
PATIENT SITTING UP IN BED AT THIS TIME. VITALS AND I&O'S CHARTED. CALL LIGHT IN REACH. NO FURTHER NEEDS AT THIS TIME.
--- NOTE | 2021-05-30 19:20 | NUR ---
REPORT RECEIVED FROM OSBALDO ENCINAS. pt RESTING IN BED WATCHING TV ON PHONE. DENIES ANY NEEDS AT THIS TIME. 3L OXYGEN BY KS IN PLACE. CALL LIGHT IN REACH.
--- NOTE | 2021-05-30 20:27 | NUR ---
pt RESTING IN BED AWAKE. VSS. ASSESSMENT COMPLETE. SPO2 WNL WITH 3L OXYGEN BY NC IN PLACE. WHEEZES AUSCULTATED RIGHT MID AND LOWER LUNG LOBES. pt DENIES SOB. DENIES TOILETING NEEDS. CALL LIGHT IN REACH.
--- NOTE | 2021-05-31 00:10 | NUR ---
CHECKED ON pt. RESTING IN BED AWAKE, TALKING TO FRIEND ON PHONE. DENIES ANY NEEDS AT THIS TIME. CALL LIGHT IN REACH.
--- NOTE | 2021-05-31 00:19 | NUR ---
BACK IN pt ROOM, pt REQUESTING PRN BREATHING TREATMENT AND PRN VISTARIL. STATES "I JUST CAN'T SLEEP YET". PRN MELATONIN ADMINISTERED WITH PO VISTARIL. WATER REFILLED. RT VICTORINO IN ROOM FOR BREATHING TREATMENT.
--- NOTE | 2021-05-31 02:16 | NUR ---
pt LYING ON LEFT SIDE. BREATHING UNLABORED. LIGHTS OFF IN ROOM.
--- NOTE | 2021-05-31 03:56 | NUR ---
CHECKED ON pt. LYING ON LEFT SIDE IN BED. 3L OXYGEN BY NC IN PLACE. EYES CLOSED. BREATHING UNLABORED.
--- NOTE | 2021-05-31 05:26 | NUR ---
PT UP TO RESTROOM SBA WITH FWW FOR VOID, INCONTINENCE IN ATTENDS, ATTENDS CHANGED. URINE ODOROUS AND CLOUDY PER RN TANNER. pt BACK IN BED. VSS. ASSESSMENT COMPLETE. pt LABORED BREATHING, SITTING UP IN BED. SPO2 WNL WITH 3L OXYGEN BY NC IN PLACE. WHEEZES AUSCULTATED THROUGHOUT LUNG LOBES ON EXPIRATION. RT VICTORINO IN ROOM FOR PRN BREATHING TREATMENT. COFFEE PROVIDED. CALL LIGHT IN REACH.
--- NOTE | 2021-05-31 07:30 | NUR ---
SHIFT REPORT GIVEN TO THIS RN BY OSBALDO MENDENHALL. PATIENT SITTING UP IN BED ON HER PHONE. PATIENT DENIES ANY CARE NEEDS AT THIS TIME. CALL LIGHT IS IN REACH.
--- NOTE | 2021-05-31 08:10 | NUR ---
THIS RN IN TO DO ASSESSMENT AND GIVE AM MEDS WHICH WERE GIVEN. PATIENT GOT PRN COUGH MEDS, BUT DENIED ANXIET SO NO VISTARIL WAS GIVEN. VS WNL AND RT HERE TO GIVE NEB. CALL LIGHT IS IN REACH AND PATIENT HAS NO OTHER NURSING CARE NEEDS AT THIS TIME.
--- NOTE | 2021-05-31 10:19 | NUR ---
PATIENT IN BED RESTING AT THIS TIME. VITALS AND I&O'S CHARTED. CALL LIGHT IN REACH. NO FURTHER NEEDS AT THIS TIME.
--- NOTE | 2021-05-31 11:16 | NUR ---
PATIENT UP IN THE HALLS WALKING WITH PT AND FWW AND VISITING WITH PASTOR APPLE. NO NURSING CARE NEEDS AT THIS TIME.
[2021-05-31] MEDS ORDERED: PREDNISONE20 MG PO (11:42)
--- NOTE | 2021-05-31 12:00 | NUR ---
Cameron from [facility] here with pts 4ww with a seat and 02 tank to dc to home. To pts room and pt working with PT. PT working with pt to use new walker. Pt plans on dc today. Denies needs. Would like HH through [facility]. Will fax chart when orders complete.
[2021-05-31] MEDS ORDERED: NICOTINE PATCH1 EACH TD (12:06)
[2021-05-31] MEDS ORDERED: ALBUTEROL2.5 MG/3 M INH (12:06)
--- NOTE | 2021-05-31 12:50 | NUR ---
PT ALERT, ORIENTED AND SITTING ON SIDE OF BED-FAING DOOR WITH HER PHONE. PT WOULD LIKE [facility] TO VISIT TODAY. WILL INFORM, AND CHECK BACK
--- NOTE | 2021-05-31 13:10 | NUR ---
THIS RN IN WITH PATIENT DC AND F/U INSTRUCTIONS GIVEN AND DISCUSSED WITH PATIENT. PORTABLE O2 BOTTLE AND NC READY FOR PATIENT TO GO. IV DC'D INTACT. O2 SAT 95% ON 2L/NC. TRANSPORT CALLED TO TAKE PATIENT HOME AND SHOULD BE HERE IN 20 MINUTES. ALL OF PATIENT'S QUESTIONS ANSWERED. HOME HEALTH TO BE OUT TO DO PT 2XWEEK. CALL LIGHT IN REACH AND PATIENT IS GETTING DRESSED.
--- NOTE | 2021-05-31 14:17 | NUR ---
Face sheet, H&P, DC summary, PT notes faxed to Georgette at [facility]. Called and updated I have sent the chart.
== END 2021-05-31 13:15 | disposition home or self-care (01) | DRG 189 ==
LOC: ED 23:35 → CCU 23:36 → MS 05-24 17:19
PROVIDERS: ADMIT Internal Medicine; ATTEND Internal Medicine
DX: J96.21 Acute and chronic respiratory failure with hypoxia (principal); J44.1 Chronic obstructive pulmonary disease with (acute) exacerbation; K21.9 Gastro-esophageal reflux disease without esophagitis; I10 Essential (primary) hypertension; F39 Unspecified mood [affective] disorder; F41.9 Anxiety disorder, unspecified; Z20.822 Contact with and (suspected) exposure to COVID-19; Z88.0 Allergy status to penicillin; Z88.2 Allergy status to sulfonamides; Z88.1 Allergy status to other antibiotic agents; J98.4 Other disorders of lung; Z88.8 Allergy status to other drugs, medicaments and biological substances; F17.200 Nicotine dependence, unspecified, uncomplicated; Z90.49 Acquired absence of other specified parts of digestive tract; Z86.16 Personal history of COVID-19; R26.89 Other abnormalities of gait and mobility
CPT/HCPCS: 36415; 71045; 71260; 80048; 80053; 83605; 83880; 84484; 85025; 85379; 87040; 93005; 93010; 94640; 94644; 94668; 94760; 94761; 96365; 96372; 96376; 97110; 97116; 97161; 99285-25; A9270; C9803; G0378; J0456; J1650; J2920; J2930; J3480; J7030; J7060; J7512; Q0177; U0003

== ENCOUNTER 2021-07-17 07:16 | Inpatient (IN) | payer OTHER ==
[~2021-07-17] VITALS: Ht 157.5 cm; Wt 68.0 kg
[~2021-07-17 07:16] MED LIST changes: +ALBUTEROL2.5 MG/3 M INH; +NICOTINE GUM2 MG MM; +NICOTINE PATCH1 EACH TD
--- NOTE | 2021-07-17 09:29 | NUR ---
REPORT RECIEVED, CARE OF PT ASSUMED AT THIS TIME. PT TRANSPORTED TO CCU VIA STRETCHER ON THE BIPAP. PT RR = 30S. EXCESSORY MUSCLE USE NOTED AND PT TRIPODING. UNABLE MOVE FROM STRETCHER TO BED. LUNGS SOUND TIGHT THROUGHOUT WITH EXPIRATORY WHEEZES NOTED IN UPPER AIRWAYS. HEART RATE 115-120 AT REST, PT JUST RECEIVED A BREATHING TX. FAMILY AT BESIDE. PT DENIES PAIN OR NAUSEA.
--- NOTE | 2021-07-17 09:51 | NUR ---
PT RESTIN ON BIPAP, NO LONGER TRIPODING. BREATHING EVEN AND UNLABORED. SPO2 = 96% ON BIPAP. HEART RATE 114. CALL LIGHT WITHIN REACH. PLAN OF CARE ESTABLISHED. WILL CONTINUE TO MONITOR.
--- NOTE | 2021-07-17 10:29 | NUR ---
PT PLACED ON 3 L NC FOR ORAL ADMINISTRATION OF MEDICATIONS. PT ABLE TO MAINTAIN SPO2 =95% WHILE TAKING MEDICATIONS. PT NOW BACK ON BIPAP RESTING. HEART RATE LESS THAN 110 AT REST. CALL LIGHT WITHIN REACH. WILL CONTINUE TO MONITOR.
[2021-07-17] MEDS ORDERED: ATENOLOL50 MG PO (12:09)
--- NOTE | 2021-07-17 12:30 | NUR ---
REPORT RECEIVED FROM ARJUN ROBLERO. PT IS RESTING ON BIPAP WITH EYES CLOSED, RESP EVEN AND UNLABORED WITH RR 22, FIO2 30% 15/8 AND SPO2 95%, HR 90'S SINUS.
--- NOTE | 2021-07-17 12:30 | NUR ---
REPORT RECEIVED FROM WESLEY ROBLERO. PT RESTING ON BIPAP WITH EYES CLOSED, RESP EVEN AND SLIGHTLY LABORED. RR 22, SPO2 95%, BIPAP AT 15/8 WITH FIO2 30%. HR 90S SINUS.
--- NOTE | 2021-07-17 13:10 | NUR ---
IN TO SEE PT AND DO ASSESSMENT. PT WAKES EASILY, BIPAP REMOVED TO GIVE PILL AND PT PLACED ON NASAL CANNULA. RESP ARE MILDLY LABORED WITH PROLONGED EXPIRATION TIME. LUNGS DIMINISHED WITH SLIGHT EXP WHEEZE HERAD THROUGHOUT. PT STATES SHE FEELIS LIKE HER BREATHING IS "BETTER" BUT STILL FAR FROM HER BASELINE. PT STATES SHE HAS NO URGE TO VOID AT THIS TIME. PLACED BACK ON BIPAP AND SHE GOES BACK TO SLEEP QUICKLY.
--- NOTE | 2021-07-17 13:35 | NUR ---
LAB IN TO DRAW VBG.
--- NOTE | 2021-07-17 14:00 | NUR ---
RT IN TO GIVE PRN NEB TX, PT REMAINS ON BIPAP, FIO2 TURNED DOWN TO 28% BY RT.
--- NOTE | 2021-07-17 14:15 | NUR ---
ASKED PT IS SHE COULD TRY TO VOID AND SHE STATES NO BUT DOES AGREE TO TRY TO SIT ON BEDPAN FOR A WHILE. FOUND PT TO BE INC OF LARGE AMOUNT OF URINE, SHE STATES SHE IS NOT NORMALLY INCONTINENT. KAM CARE DONE AND PT WAS ABLE TO VOID SOME ON BED BERMAN. REMAINS ON BIPAP.
--- NOTE | 2021-07-17 16:15 | NUR ---
IN TO DO ASSESSMENT AND GIVE MEDS, REMOVED BIPAP AND PLACED PT ON 3L/NC. SATS REMAINED 88-95% BUT PT BECAME VERY LABORED AND GOT INTO TRIPOD POSITION. ASSISTED PT WITH GETTING BIPAP BACK ON, RELAXING AND BACK INTO BED AND BREATHING RELAXES SOME ALTHOUGH STILL SOMEWHAT LABORED. NEB TX GIVEN. AND THEN PT BACK TO SLEEP.
--- NOTE | 2021-07-17 18:00 | NUR ---
PT CALLS WITH URGE TO VOID, ASSISTED ONTO BEDPAN, REMAINED ON BIPAP AND INSTURCTED TO CALL WHEN SHE WAS DONE.
--- NOTE | 2021-07-17 18:40 | NUR ---
PT CALLED, WAS ABLE TO VOID 250ML INTO BEDPAN. PRN NEB TX GIVEN.
--- NOTE | 2021-07-17 19:30 | NUR ---
RECEIVED REPORT FROM DAY SHIFT RN. UPON ASSESSMENT PT REPORTS INCREASED SOB EVEN WITH BIPAP. DR PARNELL FOR BEDSIDE ASSESSMENT. PRN VISTARIL GIVEN WELL. LUNGS TIGHT WITH EXP WHEEZES. NEW ORDERS FROM MD FOR EDWARDS, NPO, AND TO GIVE PRN MEDS. PT REPORTS FEELEING ALITTLE BETTER VSS CALL LIGHT WITHIN REACH WILL CONTINUE TO MONITOR.
--- NOTE | 2021-07-18 00:20 | NUR ---
PT WOKE UP EXTREMELY ANXIOUS STATES SHE IS NOT ABLE TO BREATH OR GET A BREATH IN. INCREASED O2 ON BIPAP AND PRESSURE SUPPORT. PT BEGGING FOR HELP TO HELP HER BREATH. CALLED RT AND . TO PROVIDE PRN MOPPHINE FOR SEVERE DYSPNEA. ALSO INFORMED MD ABOUT PTS DIASTOLIC BP. PT STATES YEARS AGO ONE PAIN MED MADE HER ITCH. WAITING FOR MD ORDERS WILL CONTINUE TO MONITOR.
--- NOTE | 2021-07-18 02:05 | NUR ---
PT SLEEPING AT THIS TIME, CONTINUES ON BIPAP. CALL LIGHT WITHIN REACH WILL CONTINUE TO MONITOR.
--- NOTE | 2021-07-18 03:15 | NUR ---
PT REPORTS INCREASED SOB, GAVE 1 MG. 15 MINUTES LATER GAVE ADDITIONAL 1 MG. PT SATS GREATER THAN 90. PT HESITANT TO TAKE MEDS STATES I DO NOT WANT TO GET ADDICTED. INFORMED PT THAT SMALL DOSES GIVEN ONLY NEEDED. PT VERBALIZED UNDERSTANDING . CALL LIGHT WITHIN REACH WILL CONTINUE TO MONITOR.
--- NOTE | 2021-07-18 06:39 | NUR ---
CALLED MD TO INFORM ABOUT PTS BP OF 190/110. NEW ORDER FOR PRN LABETOLOL NEEDED. WILL CONTINUE TO MONITOR.
--- NOTE | 2021-07-18 07:57 | NUR ---
REPORT RECEIVED FROM ANTONI ROBLERO. RT IN TO GIVE NEB TX. PT SITTING UP IN BED IN TRIPOD POSITION WITH BIPAP ON, 07/11 30%. LUNGS VERY TIGHT AND DIMINSHED, NOT MUCH AIR MOVEMENT HEARD. EX WHEEZE HEARD THROUGHOUT. PT ANXIOUS, REQUESTING MORPHINE. ABLE TO TALK IN SHORT SENTENCES.
--- NOTE | 2021-07-18 08:11 | NUR ---
2MG IV MORPHINE GIVEN FOR SHORTNESS OF BREATH
--- NOTE | 2021-07-18 08:46 | NUR ---
PT GIVEN AM MEDS WITH BIPAP REMOVED QUICKLY FOR PILLS AND SIP OF WATER THEN REPLACED. PT IS LESS LABORED LOOKING AFTER MORPHINE AND NEB TX AND LUNGS HAVE A BIT MORE AIRMOVEMENT WITH MORE EXP WHEEZES HEARD NOW. BP 179/134, WILL CONT TO MONITOR. PT REMAINS SITTING UP IN TRIPOD POSITION WITH CALL LIGHT IN HAND.
--- NOTE | 2021-07-18 09:52 | NUR ---
10MG IV LABETOLOL GIVEN FOR CONTINUED HIGH BP'S.
--- NOTE | 2021-07-18 09:52 | NUR ---
LAB IN TO DRAW VBG
--- NOTE | 2021-07-18 10:25 | NUR ---
BIPAP SETTINGS ADJUSTED PER RT RECOMMENDATIONS BASED ON RECENT VBG, RATE INCREASED TO 26 AND IPAP INCREASED TO 18, FIO2 CONTINUES AT 32% PT IS LOOKING TIRED NOW, SITTING BACK IN BED INSTEAD OF TRIPOD POSITION. STATES "IM TIRED OF FIGHTING, I DONT FEEL VERY GOOD".
--- NOTE | 2021-07-18 10:37 | NUR ---
PREPARING TO INTUBATE PT. LR BOLUS STARTED PER DR PARNELL.
--- NOTE | 2021-07-18 11:30 | NUR ---
PT INTUBATED BY ANESTHESIA PROVIDER, PT ON VENTILATER, DR PARNELL AT BEDSIDE WELL. PROPOFOL AND KETAMINE INFUSING FOR SEDATION, LEVOPHED DRIP INFUSING FOR HYPOTENSION. CURRENT RASS -5
[2021-07-18] MEDS ORDERED: LORATADINE10 MG PO (12:54)
--- NOTE | 2021-07-18 12:56 | NUR ---
MED REC COMPLETE
--- NOTE | 2021-07-18 13:00 | NUR ---
PT HAS BEEN RESTING ON VENT FOR ONE HOUR, ABG DRAWN, DR PARNELL NOTIFIED OF RESULTS AND NO CHANGES ORDERED AT THIS TIME.
--- NOTE | 2021-07-18 14:20 | NUR ---
PICC LINE RN IN TO ATTEMPT TO PLACE PICC.
--- NOTE | 2021-07-18 15:00 | NUR ---
PATIENT ON VENT, UNABLE TO COMPLETE CASE MANAGEMENT ASSESSMENT AT THIS TIME.
--- NOTE | 2021-07-18 15:42 | NUR ---
EET ADVANCED TO 24 @ TEETH SECURE WITH BITEBLOCK IN PLACE , PENDING XRAY CONFIRMATION, ORAL CARE GIVEN , VT DROPPED TO 380 AND RATE TO 20 BPM . PT LOOK CONFORTABLE TREAMENT RAN INLINE
--- NOTE | 2021-07-18 15:52 | NUR ---
PICC INSERTION NOTE ORDERS RECIEVED TO EVALUATE PT FOR POSSIBLE PICC INSERTION. AFTER REVIEWING THE CHART AND DISCUSSING CARE WITH THE PATIENTS CCU RN AND DR PARNELL, WE DECIDED A 4FR DOUBLE LUMEN PICC WOULD BE MOST APPROPRIATE FOR HER CARE. THE RIGHT UPPER ARM AN IV IN PLACE IN THE AREA OF THE BASILIC OR BRACHIAL VEIN. A SECOND 18G IV WAS INSERTED IN THE RIGHT UPPER CEPHALIC VEIN DUE TO THE NUMBER OF IV MEDICATIONS THE PATIENT IS CURENTLY REQUIRING. THE LEFT ARM IS PREPPED AND DRAPED AND THE RIGHT BASILIC VEIN WAS IDENTIFIED AT 1CM DEPTH. A 4 FR PICC SHOULD TAKE UP 38% OF THE VESSEL PER SITE RITE. THERE WERE NO DIFFICULTIES ACCESSING THE VEIN, ADVANCING THE GUIDEWIRE, INTRODUCER, OR PICC. RT WAS CALLED TO ADJUST ET TUBE PRIOR TO CXR. A CXR WAS TAKEN AND I DECIDED TO WITHDRAW THE PICC 3 CM. THE CCU RN ADJUSED THE OG TUBE AND A SECOND CXR WAS TAKEN. DR PARNELL IS AT BEDSIDE AND CLEARS THE LINE FOR USE.
--- NOTE | 2021-07-18 16:46 | NUR ---
PT'S DAUGHTER UPDATED VIA TELEPHONE. ALL QUESTIONS ANSWERED.
--- NOTE | 2021-07-18 17:50 | NUR ---
FENTANYL GIVEN FOR PT COMFORT
--- NOTE | 2021-07-18 17:53 | NUR ---
ROCURONIUM TURNED DOWN TO 4MCG/KG/MIN.
--- NOTE | 2021-07-18 18:13 | NUR ---
DR PARNELL IN TO SEE PT
--- NOTE | 2021-07-18 18:30 | NUR ---
PT REPOSITIONED ONTO RIGHT SIDE.
--- NOTE | 2021-07-18 19:30 | NUR ---
UPON ASSESSMENT LAYING IN BED INTUBATED, PARALYZED AND SEDATED . PT RATE 20, TV 380, PEEP, FIO2 32. 7.O ETT AND 24 TEETH. PT TOLERATING VENT, UPO ORAL CARE GRIMACED. SPOKE WITH DR PARNELL THIS SHIRIN, WILL CONTINUE TO SEDATION IS AND LET PT REST. REMOVED RESTRAINTS PT IS ON PARALYTIC . ORAL CARE AND TURNING EVERY 2 HRS. VSS WILL CONTINUE TO MONITOR.
--- NOTE | 2021-07-18 23:25 | NUR ---
PT CHEWING ON TUBE, INCREASED SEDATION TO 45MCG/KG/MIN AND VEROCORNIUM TO 4MCG/KG/MIN. VSS WILL CONTINUE TO MONITOR
--- NOTE | 2021-07-18 23:55 | NUR ---
PT RESTING IN BED, TURNED PT TO LEFT SIDE , SUCTIONED AND PROVIDED ORAL CARE. PTS VSS, TOLERATING VENT WELL . WILL CONTINUE TO MONITOR
--- NOTE | 2021-07-19 03:00 | NUR ---
TURNED PT TO LEFT SIDE PROVIDED ORAL CARE. TITRATED LEVOPHED TO 1MCG/MIN BP 125/85 MAP 98. NO S,SX OF ANY DISTRESS NOTED. TOLERATING VENT WELL. WILL CONTINUE TO MONITOR.
--- NOTE | 2021-07-19 04:23 | NUR ---
TURNED PT TO BACK , PROVIDED ORAL CARE. BP 130/79 MAP 90 TITRATED LEVOPHED OFF. PT VSS , TOLERATING VENT WELL. TOF 3 TWITCHES. WILL CONTINUE TO MONITOR.
--- NOTE | 2021-07-19 05:54 | NUR ---
PT REMAINS OF LEVOPHED, VSS TOLERATING VENT. PROVIDED ORAL CARE. WILL CONTINUE TO MONITOR
--- NOTE | 2021-07-19 07:50 | NUR ---
ROUNDING AT BEDSIDE, DAVE WITH R.T. IN ROOM ASSESSING VENT, ADMINISTERING NEB, PT RESTING RELAXED POSITION IN BED. TOF 2/4 LEFT ULNER NERVE. PT RESP MATCH VENT SETTING 20 BPM.
--- NOTE | 2021-07-19 09:15 | NUR ---
PT REPOSITIONED FROM SUPINE TO RIGHT SIDE PROPPED WITH PILLOWS AND PILLOW TO CUSHION BONY PROCESSES, SHE REMAINS AT RASS OF -4.
--- NOTE | 2021-07-19 09:30 | NUR ---
ORAL CARE PROVIDED, WITH BEDSIDE JONATHON ALSO USED REESE 24 HOUR ORAL CARE KIT WITH CLEANSER AND MOISTURIZER. RASS -4,
--- NOTE | 2021-07-19 10:03 | NUR ---
ROUNDED IN ROOM, ASSESSED PT, DISCUSSED PLAN OF CARE INCLUDING, SEDATION VACATION GENTLY TITRATING SEDATION/PARALYTIC TO ASSESS, REORIENT PT, MONITOR FOR AGGITATION. TOF 1/4 LEFT ULNER NERVE AT THIS TIME. AJUSTED VENT SETTINGS, DAVE R.T. NO W IN ROOM WITH TO CONFIGURE SETTINGS FIO2 40, PEEP 10, PT OXYGEN SATURATION IS AT 92, VERBALIZED PT WAS SATURATIONS IN HIGH 90 PERCENTILE YESTURDAY. TITRATED PARALYTIC TO 4MCG FROM 6MCG AT THIS TIME.
--- NOTE | 2021-07-19 11:37 | NUR ---
SEDATION LIGHTENING/VACATION, AT THIS TIME PER CARE PLAN DISCUSSED THIS AM. HAVE TITRATED DOWN PARALYTIC, NOW ON STANDBY, PROPOFOL TITRATED TO 40MCG AT THIS TIME, THIS RN AND SYLVIA ROBLERO AT BEDSIDE. DAVE Baig NOTIFIED OF SEDATION LIGHTENING PLAN AT THIS TIME.
--- NOTE | 2021-07-19 11:50 | NUR ---
PT OPENS EYES AND RESPONDS TO QUESTIONS WITH HEAD NODS OR SHAKES, PT AT A +2-+1 AT THIS TIME. PT IS COOPERATIVE WITH CARE, SQUEEZES THIS RNS HAND. B/P SIGNIFICATNTLY ELEVATED, INTO ASSESS PT WHILE ALERT. DAVE Mayer. INTO ROOM TO ASSESS VENT AND ADJUST SETTINGS.
--- NOTE | 2021-07-19 12:00 | NUR ---
AGITATED..PT IS AGITATED HER B/P IS ELEVATED, HEART RATE 100-115. PT NOW REACHING FOR TUBE FAST DELIBERATLY, DENYS LOCATION MANAGER IN ROOM ASSISTING WITH HOLDING HANDS, PREPARING TO PLACE SOFT RESTRAINTS FOR MEDCIAL SAFETY TO PROTECT THE E.T. TUBE. ORDER FOR RESTRAINTS PLACED.
--- NOTE | 2021-07-19 12:37 | NUR ---
END SEDATION VACATION PT IS NOTABLE AGITATED, B/P ELEVATED, HEART RATE ELEVATED. PT RESTLESS, NOT CONSOLABLE, BEGIN TITRATED SEDATION MEDICATIONS FOR PT COMFORT AND TO GOAL OF -2 RASS
--- NOTE | 2021-07-19 13:00 | NUR ---
TUBE FEEDINGS STARTED NOW. PT TITRATED UP TO 44 MCG PROPOFOL FROM 42MCG AT THIS TIME. SHE IS RESTING BACK RAISES EYEBROWS TO VERBAL STIMULI AT BEDSIDE FROM THIS RN. SHE IS RELAXED POSITION, NO GRIMACE OR AGITATION AT THIS TIME.
--- NOTE | 2021-07-19 14:57 | NUR ---
VISITOR AT BEDSIDE, SEAMUS HER DAUGHTER, PT IS AT RASS -2. SHE IS NOT GRIMACING OR REACHING FOR TUBES.
--- NOTE | 2021-07-19 17:00 | NUR ---
Pt remains on a vent.
--- NOTE | 2021-07-19 17:09 | NUR ---
BEDBATH..FULL BED CHANGE OF LINENS, BED BATH PROVIDED THIS RN WITH [facility] SUPERVISORY IT SPECIALIST. PT TOLERATED WELL, EDWARDS CARE PROVIDED. RESECURED UPPER EXTREMETIES WITH SOFT RESTRAINTS. PT IS AT RASS -2 SHE WILL JOURNAL ENTRY AUDIT CLERK STAFF HAND, RAISE EYEBROWS TO VERBALE STIMULI. SHE MOVES HER HEAD OCCASIONALLY BACK AND FORTH. NO MOANING OR GRIMACING, RESTING QUIELTY IN BED.
--- NOTE | 2021-07-19 17:33 | NUR ---
PT TITRATED UP TO 50MCG AT THIS TIME PT HAS STARTED TO BE MORE ACTIVE, PULLING AT HER RESTRAINTS, GRIMACING.
--- NOTE | 2021-07-19 18:41 | NUR ---
PT RESTING QUIETLY IN BED NO DISTRESS, NO GRIMACE, NO MOAN, PTIS NOT PULLING ON RESTRAINTS AT THIS TIME SHE IS AT A RASS -2, SHE WILL RESPOND TO VERBALE AND LIGHT TOUCH ON HAND, SHE WILL HOTEL OR MOTEL CLEANING SUPERVISOR THIS RN HAND. V/S STABLE
--- NOTE | 2021-07-19 19:30 | NUR ---
RECEIVED REPORT FROM DAY SHIFT RN. UPON ASSESSMENT PT AGITATED OVER BREATHING ON VENT. PER MD GAVE 4MG VERSED, PRN FENTANYL INCREASED KETAMINE TO 1.5 AND PROPOFOL 70. AT THIS TIME PTS RATES HAVE DECREASED. BLOOD GAS ORDERED. MAKING ADJUSTMENTS. RESTRAINTS IN PLACE WILL CONTINUE TO MONITOR.
--- NOTE | 2021-07-19 22:45 | NUR ---
MD SPOKE WITH ORE WASHER, RECOMMENDATION TO BEING PARALYTICS. DUE TO INCREASED INTRINSIC PEEP. PER MD 50MG BOLUS OF ROCURONIUM IV. PER MD POST PARALYTIC BOLUS INTRINSIC PRESSURE DOWN. WAITING ON PHARMACY TO BRING PARALYTIC GTT. VSS WILL CONTINUE TO TURN , PROVIDE ORAL CARE. WILL CONTINUE TO MONITOR.
--- NOTE | 2021-07-19 23:29 | NUR ---
INITIATED ROCURONIUM AT 8MCG PER MD. VSS WILL CONTINUE TO MONITOR.
--- NOTE | 2021-07-20 00:39 | NUR ---
CALL FROM DR PARNELL, REVIEWED BLOOD GAS ASKED TO DECREASE RATE TO 16. TURNED PT TO RIGHT AND PROVIDED ORAL CARE. TOF 1 OF 4 TWITCHES. DECREASED ROCURONIUM TO 7. VSS WILL CONTINUE TO MONITOR.
--- NOTE | 2021-07-20 02:56 | NUR ---
PT RESTING IN BED , TOLERATING VENT CONTINUES ON PARALYTIC. PT SUPINE, VSS ORAL CARE PROVIDED WILL CONTINUE TO MONITOR
--- NOTE | 2021-07-20 05:03 | NUR ---
TURNED PT TO LEFT SIDE AND PROVIDED ORAL CARE. PT REMAINS ON PARALYTIC, SEDATION, TOLERATING VENT . CHANGED OUT PROPOFOL TUBING. ADEQUATE UOP, WILL CONTINUE TO MONITOR
--- NOTE | 2021-07-20 06:47 | NUR ---
SPOKE WITH MD IN REGARDS TO LABS AND PT STATUS . NO CHANGES AT THIS TIME, WILL CONTINUE TO MONITOR
--- NOTE | 2021-07-20 07:40 | NUR ---
PT RESTING ON HER LEFT SIDE SUPPORTED WITH PILLOWS, SHE IS RESTING QUIETLY NO DISTRESS NOTED, V/S STABLE, NEW BAG OF KETAMINE CHARTED AND SET TO INFUSE, SYLVIA ROBLERO INTO VERIFY. PT ASSESSMENT COMPLET, LUNGS SOUND COARSE WITH CRACKLES THROUGHOUT. SHE IS HAS NO RESTRAINTS ON AT THIS TIME. SHE HAS PARALYTIC ON BOARD TO ASSIST IN PREVENTING AIR TRAPPING/PT WORKING AGAINST THE VENT.
--- NOTE | 2021-07-20 08:00 | NUR ---
NOTED TOF AT 1/4 AT LEFT ULNER NERVE.
--- NOTE | 2021-07-20 08:30 | NUR ---
Attempted to call daughterSimeon, to complete assessment. Message left with MIL requesting she return my call.
--- NOTE | 2021-07-20 08:37 | NUR ---
PT REPOSITIONED AT THIS TIME, THIS RN WITH R.T. ASSIST, ORAL CARE PROVIDED BY DAVE WITH R.T. WELL NEB TX ADMINISTERED. PT NOW ON HER LEFT SIDE SUPPORTRF WITH PILLOWS, PILLOWS UNDER ARMS AND BETWEEN KNEES TO PROVIDE COMFORT AND PROTECT SKIN.
--- NOTE | 2021-07-20 09:07 | NUR ---
Pt remains on a vent.
--- NOTE | 2021-07-20 09:19 | NUR ---
PT RESTING IN BED, NO DISTRESS NOTED, RASS -4
--- NOTE | 2021-07-20 09:49 | NUR ---
B/P LOWER AT 81/50 MAP 60, RODRIGO Ramos RN INTO ASSIST THIS RN IN TITRATING PROPOFOL DOWN TO 40 MCG/KG/MIN AT THIS TIME WILL MONITOR FOR EFFECT. PT RESTING IN BED TOF 1/4, RASS -4, NO DISTRESS ON VISUAL ASSESSMENT OF PT.
--- NOTE | 2021-07-20 10:00 | NUR ---
NOTIFIED AT CCU NURSES STATION OF PT B/P RUNNING LOW AT THIS TIME, AND TITRATING PROPOFOL WHILE MONITORING SEDATION/PARALYTIC
--- NOTE | 2021-07-20 10:46 | NUR ---
FLUSHED NGT WITH 50ML OF WATER, BRISK RETURN, PATENT LINE, NGT TO LIS. PT AT RASS -4, SLIM 1/4 PARALYTIC ASSESSMENT.
--- NOTE | 2021-07-20 11:16 | NUR ---
IN PT ROOM TO ROUND/ASSESS PT, GAVE ORDER TO INCREASE PARALYTIC TO 8, AND KETAMINE TO 1.5, MADE CHANGES TO VENT SETTINGS. MONITOR CLOSE FOR ETCO2, IF GREATER THAN 40 CONSISTENTLY THEN NOTIFY HIM.
--- NOTE | 2021-07-20 11:55 | NUR ---
ORAL CARE PROVIDED BY RN
--- NOTE | 2021-07-20 12:15 | NUR ---
NOTIFIED OF PT TOF 0/4 ON LEFT ULNER NERVE, HE SAID THAT IS FINE FOR NOW, PLAN IS TO LIGHTEN PARALYTIC AROUND 1400. PT REPOSITIONED WELL TO LEFT SIDE PILLOWS FOR SUPPORT. RASS -4.
--- NOTE | 2021-07-20 14:20 | NUR ---
PT'S DAUGHTER SEAMUS INTO PT ROOM FOR VISIT.
--- NOTE | 2021-07-20 14:30 | NUR ---
ADMINISTERED FENTANYL 50MCG IV PRN AT THIS TIME WITH AT BEDSIDE. PROPOFOL TITRATED UP TO 50 FROM 40. PT B/P STILL ELEVATED. SAID HE WILL START AN ARTERIAL LINE FOR CLOSER MORE EXACT B/P READINGS AND SERIAL ABG'S. SYLVIA ROBLERO CCU AT BEDSIDE TO ASSIST.
--- NOTE | 2021-07-20 14:30 | NUR ---
NOTIFIED OF ELEVATED B/P AND INCREASED ETCO2
--- NOTE | 2021-07-20 14:50 | NUR ---
ART LINER... SET UP TO BEGIN ART LINE.
--- NOTE | 2021-07-20 15:40 | NUR ---
ART LINE USING ULTRASOUND TO PLACE ART LINE AT THIS TIME.
--- NOTE | 2021-07-20 16:52 | NUR ---
PT'S DAUGHTER AT BEDSIDE, UPDATED HER EARILER BEFORE ARTERIAL LINE PLACEMENT. PT B/P IMPROVING AT THIS TIME, AFTER FENTANYL 50 MCG PRN IV.
--- NOTE | 2021-07-20 17:30 | NUR ---
IN ROOM ASSESSING THE VENT AND PT AT THIS TIME, PT RESTING QUIETLY IN BED, RASS -4, SHE IS NOW HYPOTENSIVE. PTS DAUGHTER HAS NOW LEFT FOR THE NIGHT
--- NOTE | 2021-07-20 18:40 | NUR ---
PT BLOOD PRESSURE INCREASING, AWARE, CONCERN THAT PT IS MROE AWARE/LESS SEDATE, INCREASE PROPOFOL BACK TO 50 AT THIS TIME. GAVE PRN FENTANYL 50MCG AT THIS TIME, AWARE HE IS AT CCU NURSES STATION AT THIS TIME
--- NOTE | 2021-07-20 19:05 | EKG ---
[facility] [address] [place] [address] Signed Sinus tachycardia Possible Left atrial enlargement Rightward axis Borderline ECG When compared with ECG of 23-MAY-2021 23:38, No significant change was found Confirmed by TRUDI PARNELL MD ([id number]) on 07/20/2021 7:05:03 PM Electronically Signed By: TRUDI PARNELL MD 07/20/21 1905 PATIENT NAME: MARSHAALEX HOLLINGSWORTH Electrocardiogram DATE OF : 60 PHYSICIAN: TRUDI PARNELL MD REPORT #: [id number] REPORT IS CONFIDENTIAL AND NOT TO BE RELEASED WITHOUT AUTHORIZATION
--- NOTE | 2021-07-20 21:10 | NUR ---
PT LAYING IN BED RESTING, RT IN ROOM ASSESSING PT. PT ON THE VENTILATOR, FIO2 40%, PEEP 5, VT 400, RR 14, SPO2 91-94%. IVF AND MEDICATIONS INFUSING INTO LEFT PICC IN LEFT UPPER ARM, PICC SITE INTACT, LUMENS ASSESSED AND FLUSH EASILY AND DRAW BLOOD. PROPOFOL ON AT 45 MCG/KG/MIN, KETAMINE AT 1.6 MG/KG/HR, ROCURONIUM AT 8MCG/KG/MIN, LACTATED RINGERS ON AT 20ML/HR. PT RASS -4 AT THIS TIME, PT IN NO APPARENT DISTRESS, T04 WAS 0/4. PT VITALS TAKEN AT THIS TIME. NEW BAG OF KETAMINE, PROPOFOL, AD SCHEDULED IV ABX STARTED (SEE MAR). PT ASSESSMENT COMPLETED, EYES PERRLA, HEART RYTHM REGULAR, EXPIRATORY WHEEZES HEARD THROUGHOUT LUNGS, RIGHT LOWER LOBE IS ALSO DIMINISHED. +2 RADIAL AND PEDAL PULSES, BRISK CAPILLARY REFILL, ART LINE SITE C/D/I. ART LINE ZEROED, VITALS RETAKEN AFTERWARDS (SEE CHART). PT NG TUBE ON LOW INTERMITTENT SUCTION, AND WAS FLUSHED WITH WARM WATER AT THIS TIME. ORAL CARE DONE AFTERWARDS, EDWARDS DRAINING CLEAR YELLOW URINE. NO FURTHER NEEDS ASSESSED AT THIS TIME, WILL CONTINUE PLAN OF CARE.
--- NOTE | 2021-07-20 21:25 | NUR ---
DR. PARNELL UPDATED ON PT REGARDING TRAIN OF FOUR RESULTS AND ROCURONIUM RATE. ORDERS GIVEN TO MAINTAIN AT CURRENT RATE (SEE MAR), WILL CONTINUE PLAN OF CARE.
--- NOTE | 2021-07-20 21:51 | NUR ---
PT'S BLOOD PRESSURE NOTED TO BE TRENDING UP AND IS NOW IN THE 180'S SYSTOLIC AND MAINTAINING. 25MCG FENTANYL ADMINISTERED PER CLINICAL JUDGMENT FOR PAIN, PROPOFOL INCREASED TO 50MCG/KG/MIN. AFTER ADMINISTRATION PT'S BLOOD PRESSURE BEGAN TO SLOWLY DECREASE AND IS CURRENTLY IN THE 160'S SYSTOLIC. SCHEDULED METHYLPREDNISOLONE ADMINSTERED AFTERWARDS (SEE MAY). ET TUBE THEN REPOSITIONED TO THE LEFT SIDE OF THE MOUTH. NO FURTHER NEED ASSESSED AT THIS TIME, WILL CONTINUE PLAN OF CARE.
--- NOTE | 2021-07-20 23:05 | NUR ---
PT'S IV ABX COMPLETED AT THIS TIME, PT SALINE LOCKED ON RIGHT UPPER ARM IV. MAINTENANCE IVF NO LONGER INFUSING AT THIS TIME PROPOFOL, KETAMINE, AND ROCURONIUM INFUSION RATES ARE ABOVE 125ML/HR TOTAL. PT REPOSITIONED ON THE BED WITH ASSISTANCE FROM OSBALDO CORRALES, PILLOWS UNDER PT'S LEFT SIDE. ARTERIAL LINE RECALIBRATED AFTERWARDS. NO FURTHER NEEDS ASSESSED, WILL CONTINUE PLAN OF CARE.
--- NOTE | 2021-07-20 23:45 | NUR ---
PT LAYING IN BED ON THE VENTILATOR, IV MEDICATIONS INFUSING AT PREVIOUS RATES, VENT SETTINGS UNCHANGED. NG ON LIS, ART LINE SITE C/D/I, PICC SITE C/D/I. KETAMINE DRIP INCREASED UP TO 1.7 MG/KG/HR PER CLINICAL JUDGEMENT. TOF 0. VITALS TAKEN AT THIS TIME AND ASSESSMENT COMPLETED (SEE CHART). LUNGS COARSE WITH WHEEZES IN ALL LOBES. OTHER ASSESSMENT FINDINGS UNCHANGED, PT TOLERATING VENTILATOR. PT IN LINE AND ORAL SUCTIONED AFTERWARDS, ORAL CARE THEN DONE. NO FURTHER NEEDS ASSESSED AT THIS TIME, WILL CONTINUE PLAN OF CARE.
--- NOTE | 2021-07-21 00:35 | NUR ---
BLOOD PRESSURE NOTED TO BE IN THE 190'S SYSTOLIC. KETAMINE INCREASED TO 1.8MG/KG/HR AND 25MCG PRN FENTANYL ADMINISTERED PER CLINICAL JUDGMENT. PT'S BP BEGAN TO SLOWLY DECREASE AFTERWARDS TO THE 160'S-170'S SYSTOLIC. NO FURTHER NEEDS ASSESSED AT THIS TIME, WILL CONTINUE PLAN OF CARE. VENT SETTINGS UNCHANGED, SPO2 90-94%.
--- NOTE | 2021-07-21 02:25 | NUR ---
PT REPOSITIONED IN BED AT THIS TIME. PILLOWS PLACED UNDER RIGHT SIDE AND AROUND PT. IV MEDICATIONS INFUSING AT PREVIOUS RATES, VENT SETTINGS UNCHANGED EXCEPT FOR Ti WHICH IS NOW 1.0, WHICH WAS CHANGED BY RT. NO FURTHER NEEDS ASSESSED AT THIS TIME, NG TUBE ON LIS, EDWARDS DRAINING. WILL CONTINUE PLAN OF CARE.
--- NOTE | 2021-07-21 04:45 | NUR ---
RT IN ROOM AT THIS TIME, ASSESSING PT. PT ON VENTILATOR AT PREVIOUS SETTINGS. IV MEDICATIONS ON AT PREVIOUS RATES. VITALS TAKEN AND ASSESSMENT COMPLETED. EXPIRATORY WHEEZES PRESENT THROUGHOUT. PICC LINE C/D/I, ART LINE SITE C/D/I. RADIAL AND PEDAL PULSES STRONG BILATERALLY, EXTREMITIES WARM. ORAL CARE DONE AT THIS TIME. NO FURTHER NEEDS ASSESSED AT THIS TIME, WILL CONTINUE PLAN OF CARE.
--- NOTE | 2021-07-21 05:05 | NUR ---
WATER FLUSH DONE AT THIS TIME, PT REMAINS ON LOW INTERMITTENT SUCTION, YELLOW/CLEAR CONTENTS PRESENT IN TUBE, WILL CONTINUE PLAN OF CARE.
--- NOTE | 2021-07-21 06:07 | NUR ---
SCHEDULED LABS DRAWN AT THIS TIME, AND SENT TO LAB. PT VENT SETTINGS AND IVF REMAIN THE SAME. NO FURTHER NEEDS ASSESSED, WILL CONTINUE PLAN OF CARE.
--- NOTE | 2021-07-21 06:44 | NUR ---
PT LAYING IN BED RESTING ON THE VENT. SETTINGS UNCHANGED, IVF ON AT PREVIOUS RATES. SCHEDULED MEDICATIONS ADMINISTERED AT THIS TIME. NO FURTHER NEEDS ASSESSED, ART LINE ZEROED. WILL CONTINUE PLAN OF CARE.
--- NOTE | 2021-07-21 06:44 | NUR ---
SCHEDULED LABS DRAWN AT THIS TIME, AND SENT TO LAB. PT IN NO APPARENT DISTRESS, IVF AND VENT SETTINGS UNCHANGED, NO FURTHER NEEDS ASSESSED AT THIS TIME, WILL CONTINUE PLAN OF CARE.
--- NOTE | 2021-07-21 07:01 | NUR ---
DR. PARNELL UPDATED ON PT'S ABG, ORDERS GIVEN TO BEGIN TITRATING DOWN ROCURONIUM. ORDER GIVEN TO DECREASE BY 2MCG/KG/MIN EVERY 15 MINUTES UNTIL OFF. ROCURONIUM DECREASED DOWN TO 6MCG/KG/MIN AT THIS TIME. NO FURTHER NEEDS ASSESSED, WILL CONTINUE PLAN OF CARE.
--- NOTE | 2021-07-21 07:20 | NUR ---
ROCURONIUM TITRATED DOWN TO 4MCG/KG/MIN PER ORDER. PT STILL REMAINS ON KETAMINE AND PROPOFOL AT PREVIOUS RATES (SEE MAR). PT RESTING IN BED ON VENTILATOR IN NO APPARENT DISTRESS. OG TO GRACE CASILLAS. NEW BOTTLE PROPOFOL STARTED AT THIS TIME (SEE MAR). WILL CONTINUE PLAN OF CARE.
--- NOTE | 2021-07-21 07:47 | NUR ---
SHIFT REPORT FROM EVELYN RN, PT RESTING IN BED QUIETLY PARALYTIC IS NOW ON STANDBY, PT B/P ELEVATED, PROPOFOL TITRATED TO 55, 25MCG OF FENTANYL PRN IV FOR COMFORT ADMINISTERED. Jovanni MUÑOZ IN ROOM AT THIS TIME FOR NEB TX AND ASSESSMENT OF PT
--- NOTE | 2021-07-21 08:52 | NUR ---
PT NOW HAS TOF OF 4/4, HER B/P IS ELEVATED, TITRATING PROPOLFOL AND ADMINISTERING FENTANYL PRN FOR COMFORT, MONITORING CLOSE FOR COMFORT, AND NEED TO CONTINUE TO TITRATE MEDICATIONS. AT CCU NURSES STATION HE HAS BEEN UPDATED
--- NOTE | 2021-07-21 09:16 | NUR ---
ORAL CARE COMPLETE, SUCTIONED ORAL CAVITY AFTER, PT TOLERATED WELL, B/P ELEVATED SLIGHTLY WITH STEMULI
--- NOTE | 2021-07-21 09:36 | NUR ---
ROUNDED, ASSESSED PT AND VENT, HE GAVE ORDER TO BEGIN TITRATING DOWN KETAMIN FIRST THEN PROPOFOL, WILL ADD LABATOLOL TO MED LIST TO ASSIST IN MANAGEING B/P
--- NOTE | 2021-07-21 11:45 | NUR ---
Pt remains on a vent. Per RN pt may transfer to a high level of care, if a bed is open.
--- NOTE | 2021-07-21 12:26 | NUR ---
AWAKENING...PT SEDATION AWAKENING, PARALYTIC TITRATED TO OFF AT 0745. SEDATION LIGHTENING STARTED AT 0930 TITRATING DOWN KETAMINE FIRST THEN PLAN TO TITRATE DOWN PROPOFOL. LAST TITRATION OF KETAMINE AT 1115 TO 0.6MG/KG, PROPOFOL REMAINS AT 50MCG/KG, NOTIFIED OF PT TOF 4/4, PT AT 1130 BEGAN TO MOVE FINGERS AND TOES, ABLE TO GIVE HAND SQUEEZES, SHE ALSO BEGAN TO COUGH AND REQUIRED SUCTIONING. PT B/P ELEVATED SIGNIFICANTLY TO 190'S SYSTOLIC, PT BEGAN TO REACH FOR E.T. TUBE AND STRUGGLE, PT STARTING TO BREATH OVER VENT 18BPM, VENT SET FOR 14, PT CO2 INCREASEING, CALLED. BACK IN PT ROOM, PT CONTINUES TO REACH FOR E.T. TUBE, SHE IS COUGHING INTERMITTENLY, HER B/P NOW 203 SYSTOMIC, AND Jovanni ORTEGAK INTO PT ROOM TO ASSESS VENT. GAVE ORDERS TO STOP SEDATION AWAKENING AND PT'S DAUGHTER AT BEDSIDE. GAVE VERBAL ORDERS TO GIVE VERSED 4, AND PARALYTIC BOLUS OF 50, RESTART SEDATION DRIPS AT THIS TIME. SPOKE WITH PT'S DAUGHTER SEAMUS IN REGARDS TO FURTHER CARE PLAN OF TRANSFERING PT TO HIGHER LEVEL OF CARE. PT B/P STABLIZED WITH MEDICATIONS ADMINISTRATIONS.
--- NOTE | 2021-07-21 13:36 | NUR ---
OSBALDO VACA REQUESTED I VISIT WITH PT'S DAUGHTER SEAMUS IN . CONNECTED WITH SEAMUS. SHE REQUESTED FRIT BURNER VISIT IF POSSIBLE. FR BOCANEGRA CONTACTED, LEFT MSG. GAVE COMFORT, PRAYED WITH SEAMUS. FR BOCANEGRA CAME SEAMUS WAS OUT OF . PT IS TO BE TRANSFERRED. WILL FOLLOW
--- NOTE | 2021-07-21 14:20 | NUR ---
[facility] IN ROOM AT THIS TIME, PREPARING THE PT TO TRANSFER AT THIS TIME, REPORT HAS BEEN GIVEN TO TRANSPORT. 1400 SOLU MEDROL AND BS CHECK COMPLETE. BS 119. NO OTHER CONCERNS
--- NOTE | 2021-07-21 14:28 | NUR ---
PT B/P ELEVATED TO 200 SYSTOLIC, 25 MCG OF FENTANYL IV ADMINISTERED AT THIS TIME. FOR COMFORT.
--- NOTE | 2021-07-21 14:40 | NUR ---
PT OFF THE UNIT AT THIS TIME WITH [facility] TRANSPORT.
--- NOTE | 2021-07-21 15:08 | NUR ---
CONNECTED WITH PT'S DAUGHTER SEAMUS-PT TRANSFERRING TO [facility]. GAVE LF PACKING LIST, GAVE COMFORT AND SUPPORT. WENT WITH PT TO TRANSPORT, PRAYER OFFERED.
--- NOTE | 2021-07-21 15:20 | NUR ---
CALLED REPORT TO BHARATH AT CC5 8, AT THIS TIME, SHE HAD NO FURTHER QUESTIONS GAVE DIRECT NUMBER TO THIS CCU FOR CALL BACK IF ANY FURTHER QUESTIONS.
== END 2021-07-21 14:40 | disposition short-term general hospital (02) | DRG 208 ==
LOC: ED 07:16 → CCU 09:04
PROVIDERS: ADMIT Internal Medicine; ATTEND Internal Medicine
PROC: 5A09357 Assistance with Respiratory Ventilation, Less than 24 Consecutive Hours, Continuous Positive Airway Pressure (ICD-10-PCS; 2021-07-17)
PROC: 03HY32Z Insertion of Monitoring Device into Upper Artery, Percutaneous Approach (ICD-10-PCS; 2021-07-18)
PROC: 4A133B1 Monitoring of Arterial Pressure, Peripheral, Percutaneous Approach (ICD-10-PCS; 2021-07-18)
PROC: 4A133J1 Monitoring of Arterial Pulse, Peripheral, Percutaneous Approach (ICD-10-PCS; 2021-07-18)
PROC: 0BH17EZ Insertion of Endotracheal Airway into Trachea, Via Natural or Artificial Opening (ICD-10-PCS; 2021-07-18)
PROC: 5A1945Z Respiratory Ventilation, 24-96 Consecutive Hours (ICD-10-PCS; principal; 2021-07-18 14:45)
DX: J96.21 Acute and chronic respiratory failure with hypoxia (principal); J44.1 Chronic obstructive pulmonary disease with (acute) exacerbation; J96.22 Acute and chronic respiratory failure with hypercapnia; Z20.822 Contact with and (suspected) exposure to COVID-19; J32.9 Chronic sinusitis, unspecified; R73.9 Hyperglycemia, unspecified; I10 Essential (primary) hypertension; K21.9 Gastro-esophageal reflux disease without esophagitis; F32.A Depression, unspecified; F17.210 Nicotine dependence, cigarettes, uncomplicated; Z90.49 Acquired absence of other specified parts of digestive tract; Z90.710 Acquired absence of both cervix and uterus; Z98.890 Other specified postprocedural states; Z88.0 Allergy status to penicillin; Z88.2 Allergy status to sulfonamides; Z88.1 Allergy status to other antibiotic agents; Z88.5 Allergy status to narcotic agent; Z88.6 Allergy status to analgesic agent; Z88.8 Allergy status to other drugs, medicaments and biological substances; Z79.52 Long term (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 of systemic steroids; Z79.899 Other long term (current) drug therapy
CPT/HCPCS: 31500; 31720; 36415; 36569; 36600; 71045; 80053; 81001; 82803; 83036; 83605; 83735; 83880; 84100; 85025; 87040; 93005; 93010; 94002; 94003; 94640; 94660; A9270; C1751; C9113; J1650; J1815; J1940; J2250; J2270; J2370; J2704; J2930; J3010; J3475; J3480; J7040; J7060; J7121; Q0177; U0003

== ENCOUNTER 2021-08-04 00:52 | Emergency (ER) | payer OTHER ==
[~2021-08-04] VITALS: Ht 157.5 cm; Wt 67.7 kg
[~2021-08-04 00:52] MED LIST changes: +ATENOLOL50 MG PO
--- OUTSIDE RECORDS SUMMARY | 2021-08-04 01:00 | XMS ---
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 E.DCecy VISIT COUNT (12 MO.) 3 [facility] TOTAL 3 NOTE: Visits indicate total known visits. ED/UCC VISIT TRACKING (12 MO.) 08/04/2021 00:52 [facility] [place] TYPE: Emergency COMPLAINT: - CHEST PAIN 07/17/2021 07:16 [facility] [place] TYPE: Emergency COMPLAINT: - [place] 05/23/2021 23:35 [facility] [place] TYPE: Emergency COMPLAINT: - DIFFICULTY BREATHING INPATIENT VISIT TRACKING (12 MO.) [facility] [place] [facility] DIAGNOSES: - Other viral infections of unspecified site - Acute respiratory failure, unspecified whether with hypoxia or hypercapnia - Tobacco abuse counseling - Essential (primary) hypertension - Nicotine dependence, cigarettes, uncomplicated - Acute respiratory failure with hypercapnia - Acute respiratory failure with hypoxia - Chronic obstructive pulmonary disease with (acute) exacerbation 07/17/2021 09:04 [facility] [place] TYPE: Critical Care COMPLAINT: - RESPIRATORY FAILURE DIAGNOSES: - Acute and chronic respiratory failure with hypoxia - Acquired absence of both cervix and uterus - Chronic sinusitis, unspecified - Acquired absence of other specified parts of digestive tract - Allergy status to other drugs, medicaments and biological substances - Allergy status to analgesic agent - Allergy status to sulfonamides - Other specified postprocedural states - Chronic obstructive pulmonary disease with (acute) exacerbation - Depression, unspecified - Allergy status to narcotic agent - Acquired absence of both cervix and uterus - Allergy status to other antibiotic agents - Gastro-esophageal reflux disease without esophagitis - Depression, unspecified - Acute and chronic respiratory failure with hypercapnia - Allergy status to other drugs, medicaments and biological substances - custodial (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 of systemic steroids - Hyperglycemia, unspecified - Other care home (current) drug therapy - Hyperglycemia, unspecified - Acute respiratory failure with hypoxia - Other specified postprocedural states - Allergy status to other antibiotic agents - Contact with and (suspected) exposure to COVID-19 - long term care phlebotomist (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 of systemic steroids - Contact with and (suspected) exposure to COVID-19 - Essential (primary) hypertension - Allergy status to narcotic agent - Allergy status to sulfonamides - Allergy status to penicillin - Allergy status to penicillin - Chronic sinusitis, unspecified - Chronic obstructive pulmonary disease with (acute) exacerbation - Nicotine dependence, cigarettes, uncomplicated - Gastro-esophageal reflux disease without esophagitis - Nicotine dependence, cigarettes, uncomplicated - Allergy status to analgesic agent - Other medical terminologist (current) drug therapy - Essential (primary) hypertension - Acute and chronic respiratory failure with hypoxia - Acquired absence of other specified parts of digestive tract - Acute and chronic respiratory failure with hypercapnia 05/25/2021 13:[address] [facility] [place] TYPE: Medical Surgical COMPLAINT: - COPD EXACERBATION DIAGNOSES: - Chronic obstructive pulmonary disease with (acute) exacerbation - Other disorders of lung - Contact with and (suspected) exposure to COVID-19 - Nicotine dependence, unspecified, uncomplicated - Unspecified mood [affective] disorder - Anxiety disorder, unspecified - Allergy status to other antibiotic agents - Allergy status to sulfonamides - Other abnormalities of gait and mobility - Allergy status to other drugs, medicaments and biological substances - Anxiety disorder, unspecified - Unspecified mood [affective] disorder - Other abnormalities of gait and mobility - Essential (primary) hypertension - Allergy status to other drugs, medicaments and biological substances - Nicotine dependence, unspecified, uncomplicated - Essential (primary) hypertension - Acquired absence of other specified parts of digestive tract - Allergy status to other antibiotic agents - Personal history of COVID-19 - Acute and chronic respiratory failure with hypoxia - Allergy status to penicillin - Gastro-esophageal reflux disease without esophagitis - Acute and chronic respiratory failure with hypoxia - Allergy status to penicillin - Gastro-esophageal reflux disease without esophagitis - Acquired absence of other specified parts of digestive tract - Other disorders of lung - Allergy status to sulfonamides [email or web address]
[2021-08-04] MEDS ORDERED: POTASSIUM CHLO20 ME1 PO (05:53)
--- NOTE | 2021-08-05 15:33 | EKG ---
[facility] [address] [place] [address] Signed Sinus bradycardia T wave abnormality, consider anterior ischemia Abnormal ECG When compared with ECG of 17-JUL-2021 07:39, Vent. rate has decreased BY 66 BPM Confirmed by TRUDI PARNELL MD ([id number]) on 08/05/2021 3:33:32 PM Electronically Signed By: TRUDI PARNELL MD 08/05/21 1533 PATIENT NAME: TONYALEXNADINE NIX Electrocardiogram DATE OF : 60 PHYSICIAN: TRUDI PARNELL MD REPORT #: [id number] REPORT IS CONFIDENTIAL AND NOT TO BE RELEASED WITHOUT AUTHORIZATION
== END 2021-08-04 06:02 | disposition home or self-care (01) ==
LOC: ED 00:52
DX: R07.89 Other chest pain (principal); E87.6 Hypokalemia; I10 Essential (primary) hypertension; F17.200 Nicotine dependence, unspecified, uncomplicated; Z88.0 Allergy status to penicillin; Z88.2 Allergy status to sulfonamides; Z88.5 Allergy status to narcotic agent; Z88.8 Allergy status to other drugs, medicaments and biological substances; Z79.899 Other long term (current) drug therapy; Z79.82 Long term (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 of aspirin; Z79.51 Long term (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 of inhaled steroids
CPT/HCPCS: 36415; 80053; 83735; 84484; 85025; 93005; 93010; 96365; 96366; 99285-25; A9270; J3480

== ENCOUNTER 2022-02-14 03:50 | Emergency (ER) | payer OTHER ==
[~2022-02-14] VITALS: Ht 157.5 cm; Wt 70.0 kg
[~2022-02-14 03:50] MED LIST changes: +POTASSIUM CHLO20 ME1 PO
[2022-02-14] MEDS ORDERED: LEVOFLOXACIN500 MG PO (05:04)
[2022-02-14] MEDS ORDERED: IPRAT-ALBUT 0.5-3 ML INH (05:04)
[2022-02-14] MEDS ORDERED: PREDNISONE20 MG PO (05:14)
== END 2022-02-14 05:34 | disposition home or self-care (01) ==
LOC: ED 03:50
DX: J18.9 Pneumonia, unspecified organism (principal); Z20.822 Contact with and (suspected) exposure to COVID-19; I10 Essential (primary) hypertension; J44.9 Chronic obstructive pulmonary disease, unspecified; F17.200 Nicotine dependence, unspecified, uncomplicated; Z88.0 Allergy status to penicillin; Z88.5 Allergy status to narcotic agent; Z88.1 Allergy status to other antibiotic agents; Z88.8 Allergy status to other drugs, medicaments and biological substances; Z79.899 Other long term (current) drug therapy; Z79.82 Long term (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 of aspirin
CPT/HCPCS: 36415; 71045; 80053; 82803; 83880; 85025; 87502; 94640; 96374; 99285-25; C9803; J2930; U0003

== ENCOUNTER 2022-03-08 10:44 | Emergency (ER) | payer OTHER ==
[~2022-03-08] VITALS: Ht 157.5 cm; Wt 70.4 kg
[~2022-03-08 10:44] MED LIST changes: +LEVOFLOXACIN500 MG PO
--- OUTSIDE RECORDS SUMMARY | 2022-03-08 10:47 | XMS ---
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 E.DCecy VISIT COUNT (12 MO.) [address] [place] [facility] NOTE: Visits indicate total known visits. ED/UCC VISIT TRACKING (12 MO.) 03/08/2022 10:[address] [facility] [place] TYPE: Emergency COMPLAINT: - SHORTNESS OF BREATH 02/14/2022 03:51 [facility] [place] TYPE: Emergency COMPLAINT: - COUGH, SOB, WEAKNESS DIAGNOSES: - Allergy status to penicillin - Contact with and (suspected) exposure to COVID-19 - Pneumonia, unspecified organism - Shortness of breath - Allergy status to other antibiotic agents - halfway (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 of aspirin - Allergy status to other drugs, medicaments and biological substances - Chronic obstructive pulmonary disease, unspecified - Nicotine dependence, unspecified, uncomplicated - Essential (primary) hypertension - Allergy status to narcotic agent - Other filler leaf cutter long (current) drug therapy 08/23/2021 16:34 [facility] Nita DAVIS TYPE: Emergency DIAGNOSES: - Arm Swelling - arm pain, swelling - Phlebitis and thrombophlebitis of unspecified site 08/04/2021 00:52 [facility] [place] TYPE: Emergency COMPLAINT: - CHEST PAIN DIAGNOSES: - Other chest pain - Allergy status to sulfonamides - Hypokalemia - Other filler leaf cutter long (current) drug therapy - Allergy status to narcotic agent - Nicotine dependence, unspecified, uncomplicated - Allergy status to penicillin - Essential (primary) hypertension - halfway (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 of inhaled steroids - Allergy status to other drugs, medicaments and biological substances - halfway (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 of aspirin 07/17/2021 07:16 [facility] [place] TYPE: Emergency COMPLAINT: - [place] 05/23/2021 23:35 [facility] [place] TYPE: Emergency COMPLAINT: - DIFFICULTY BREATHING INPATIENT VISIT TRACKING (12 MO.) [facility] [place] [facility] DIAGNOSES: - Tobacco abuse counseling - Other viral infections of unspecified site - Chronic obstructive pulmonary disease with (acute) exacerbation - Acute respiratory failure with hypercapnia - Essential (primary) hypertension - Acute respiratory failure, unspecified whether with hypoxia or hypercapnia - Acute respiratory failure with hypoxia - Nicotine dependence, cigarettes, uncomplicated 07/17/2021 09:04 [facility] [place] TYPE: Critical Care COMPLAINT: - RESPIRATORY FAILURE DIAGNOSES: - Gastro-esophageal reflux disease without esophagitis - Contact with and (suspected) exposure to COVID-19 - Acute and chronic respiratory failure with hypoxia - Allergy status to other drugs, medicaments and biological substances - Hyperglycemia, unspecified - Allergy status to penicillin - Acute and chronic respiratory failure with hypoxia - Chronic obstructive pulmonary disease with (acute) exacerbation - Other filler leaf cutter long (current) drug therapy - Chronic sinusitis, unspecified - Hyperglycemia, unspecified - Allergy status to sulfonamides - Depression, unspecified - Nicotine dependence, cigarettes, uncomplicated - Acquired absence of both cervix and uterus - Allergy status to other drugs, medicaments and biological substances - Essential (primary) hypertension - Other specified postprocedural states - Nicotine dependence, cigarettes, uncomplicated - Depression, unspecified - director long term care (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 of systemic steroids - Acquired absence of other specified parts of digestive tract - Allergy status to analgesic agent - Acute respiratory failure with hypoxia - Chronic sinusitis, unspecified - Allergy status to other antibiotic agents - Allergy status to other antibiotic agents - Essential (primary) hypertension - Acquired absence of other specified parts of digestive tract - Other care home (current) drug therapy - Allergy status to penicillin - Allergy status to narcotic agent - Allergy status to analgesic agent - Acquired absence of both cervix and uterus - halfway (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 of systemic steroids - Allergy status to narcotic agent - Chronic obstructive pulmonary disease with (acute) exacerbation - Gastro-esophageal reflux disease without esophagitis - Acute and chronic respiratory failure with hypercapnia - Acute and chronic respiratory failure with hypercapnia - Contact with and (suspected) exposure to COVID-19 - Allergy status to sulfonamides - Other specified postprocedural states 05/25/2021 13:[address] [facility] [place] TYPE: Medical Surgical COMPLAINT: - COPD EXACERBATION DIAGNOSES: - Other disorders of lung - Unspecified mood [affective] disorder - Unspecified mood [affective] disorder - Acute and chronic respiratory failure with hypoxia - Nicotine dependence, unspecified, uncomplicated - Essential (primary) hypertension - Allergy status to other antibiotic agents - Gastro-esophageal reflux disease without esophagitis - Chronic obstructive pulmonary disease with (acute) exacerbation - Other abnormalities of gait and mobility - Allergy status to penicillin - Other disorders of lung - Acquired absence of other specified parts of digestive tract - Acquired absence of other specified parts of digestive tract - Anxiety disorder, unspecified - Nicotine dependence, unspecified, uncomplicated - Personal history of COVID-19 - Allergy status to sulfonamides - Other abnormalities of gait and mobility - Anxiety disorder, unspecified - Allergy status to penicillin - Allergy status to other drugs, medicaments and biological substances - Allergy status to sulfonamides - Acute and chronic respiratory failure with hypoxia - Essential (primary) hypertension - Allergy status to other drugs, medicaments and biological substances - Gastro-esophageal reflux disease without esophagitis - Contact with and (suspected) exposure to COVID-19 - Allergy status to other antibiotic agents [email or web address]
[2022-03-08] MEDS ORDERED: PREDNISONE20 MG PO (13:59)
[2022-03-08] MEDS ORDERED: TAMIFLU75 MG PO (13:59)
--- NOTE | 2022-03-08 14:16 | EKG ---
[facility] [address] [place] [address] Signed Sinus tachycardia T wave abnormality, consider anterior ischemia Abnormal ECG When compared with ECG of 04-AUG-2021 00:58, Vent. rate has increased BY 55 BPM Confirmed by JESS FERRER MD ([id number]) on 03/08/2022 2:16:09 PM Electronically Signed By: JESS FERRER MD 03/08/22 1416 PATIENT NAME: MARSHAALEX HOLLINGSWORTH Electrocardiogram DATE OF : 60 PHYSICIAN: JESS FERRER MD REPORT #: [id number] REPORT IS CONFIDENTIAL AND NOT TO BE RELEASED WITHOUT AUTHORIZATION
[2022-03-08] MEDS ORDERED: IPRAT-ALBUT 0.5-3 ML INH (14:46)
[2022-03-08] MEDS ORDERED: ONDANSETRON ODT4 MG PO (14:54)
== END 2022-03-08 15:00 | disposition home or self-care (01) ==
LOC: ED 10:44
DX: J44.1 Chronic obstructive pulmonary disease with (acute) exacerbation (principal); J10.1 Influenza due to other identified influenza virus with other respiratory manifestations; I10 Essential (primary) hypertension; F17.200 Nicotine dependence, unspecified, uncomplicated; Z88.0 Allergy status to penicillin; Z88.8 Allergy status to other drugs, medicaments and biological substances; Z88.5 Allergy status to narcotic agent; Z88.2 Allergy status to sulfonamides; Z88.1 Allergy status to other antibiotic agents; Z79.899 Other long term (current) drug therapy; Z79.82 Long term (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 of aspirin
CPT/HCPCS: 36415; 71045; 80053; 83735; 85025; 87502; 93005; 93010; 94640; 96365; 99285-25; A9270; C9803; J3475; J7512; U0003

== ENCOUNTER 2023-04-14 22:08 | Emergency (ER) | payer OTHER ==
[~2023-04-14] VITALS: Ht 157.5 cm; Wt 70.4 kg
[~2023-04-14 22:08] MED LIST changes: +ONDANSETRON ODT4 MG PO; +TAMIFLU75 MG PO; +VISTARIL25 MG PO
[2023-04-14 22:16] LABS: BASOPHILS 1.3 % (0-2); EOSINOPHILS 3.6 % (0-6); HEMATOCRIT 43.8 % (35.0-50.0); HEMOGLOBIN 14.7 g/dL (12.0-18.0); LYMPHOCYTES 30.5 % (24-44); MCHC 33.6 g/dl (30-36); MCV 89.3 fl (81-99); NEUTROPHILS 57.6 % (39-80); PLATELET COUNT 304 K/uL (140-440); RDW 13.8 (10.5-15.0)
[2023-04-14 23:12] LABS: INFLUENZA B NAA NEGATIVE (NEGATIVE); RESPIRATORY SYNCYTIAL VIR NAA NEGATIVE (NEGATIVE)
[2023-04-14] MEDS ORDERED: NEBULIZER UNIT XX (23:29)
[2023-04-14] MEDS ORDERED: IPRAT-ALBUT 0.5-3 ML INH (23:30)
[2023-04-14] MEDS ORDERED: PREDNISONE20 MG PO (23:30)
[2023-04-14] MEDS ORDERED: [UNRECOGNIZED DRUG - OTHER] INH (23:40)
[2023-04-15 00:49] VITALS: BP 130/103
== END 2023-04-15 00:50 | disposition home or self-care (01) ==
LOC: ED 22:08
PROVIDERS: Family Medicine
DX: J44.1 Chronic obstructive pulmonary disease with (acute) exacerbation (principal); I10 Essential (primary) hypertension; F17.200 Nicotine dependence, unspecified, uncomplicated; Z88.0 Allergy status to penicillin; Z88.5 Allergy status to narcotic agent; Z88.2 Allergy status to sulfonamides; Z88.1 Allergy status to other antibiotic agents; Z88.6 Allergy status to analgesic agent; Z88.8 Allergy status to other drugs, medicaments and biological substances; Z79.899 Other long term (current) drug therapy; Z79.82 Long term (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 of aspirin; Z11.52 Encounter for screening for COVID-19
CPT/HCPCS: 36415; 71045; 83880; 85025; 87502; 94640; 96374; 99285-25; J2930; U0002

== ENCOUNTER 2023-09-28 10:48 | Emergency (ER) | payer OTHER ==
[~2023-09-28] VITALS: Ht 157.5 cm; Wt 74.7 kg
[~2023-09-28 10:48] MED LIST changes: -ATENOLOL50 MG PO; +AZITHROMYCIN250 MG PO; +MILLIPRED DP5 MG PO; +NEBULIZER UNIT XX; +TENORMIN25 MG PO; +[UNRECOGNIZED DRUG - OTHER] INH
[2023-09-28 12:13] LABS: BILIRUBIN, URINE NEGATIVE (negative); BLOOD/HGB, URINE NEGATIVE (Negative); KETONE, URINE NEGATIVE (Negative); LEUK ESTERASE, URINE NEGATIVE (negative); NITRITE, URINE NEGATIVE (negative); PH, URINE 5.5 (5-7)
[2023-09-28 12:25] LABS: CRYSTALS, URINE CALCIUM OXALATE 2+ (0-1+); EPITHELIAL CELLS, URINE SQUAMOUS 2+ /lpf (0-1+); RED BLOOD CELLS, URINE 0-1 /hpf (0-5); WHITE BLOOD CELLS, URINE 0-1 /HPF (0-5)
[2023-09-28 12:26] LABS: CASTS, URINE NONE SEEN \\lpf; COLLECTION TYPE, URINE CLEAN CATCH; REFLEX CULTURE, URINE No (No)
[2023-09-28 12:27] LABS: BACTERIA, URINE 2+ /hpf (negative)
[2023-09-28 12:39] VITALS: BP 150/101
== END 2023-09-28 12:39 | disposition home or self-care (01) ==
LOC: ED 10:48
PROVIDERS: Emergency Medicine
DX: K46.9 Unspecified abdominal hernia without obstruction or gangrene (principal); I10 Essential (primary) hypertension; J44.9 Chronic obstructive pulmonary disease, unspecified; F17.200 Nicotine dependence, unspecified, uncomplicated; Z86.73 Personal history of transient ischemic attack (TIA), and cerebral infarction without residual deficits; Z79.899 Other long term (current) drug therapy; Z79.82 Long term (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 of aspirin; Z88.0 Allergy status to penicillin; Z88.5 Allergy status to narcotic agent; Z88.2 Allergy status to sulfonamides; Z88.1 Allergy status to other antibiotic agents; Z88.6 Allergy status to analgesic agent; Z88.8 Allergy status to other drugs, medicaments and biological substances
CPT/HCPCS: 81001; 99283

== ENCOUNTER 2023-10-16 01:56 | Inpatient (IN) | payer OTHER ==
[2023-10-16] VITALS (7 sets, daily range): BP systolic 118–150; BP diastolic 75–91
[~2023-10-16] VITALS: Ht 157.5 cm; Wt 73.0 kg
--- OUTSIDE RECORDS SUMMARY | 2023-10-16 01:57 | XMS ---
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 Events No recent Security Events currently on file CRITERIA MET - [facility] - 2 Visits in 30 Days CARE PROVIDERS -, [facility] Dentist: [facility] PHONE: [phone] - [place]- Dentist: Linem[facility] PHONE: [phone] ALEXIA SLOAN [facility] Current PHONE: [phone] MHAAD MALDONADO [facility] PHONE: Unknown Care Guidelines exist for the following facilities: [facility] ( 11/13/2018 ) Care History Medical/Surgical 12/13/2018 [facility] \R\- EOIPA REFERRAL MADE DUE TO PATIENT RECENT HOSPITALIZATION. Ernie VISIT COUNT (12 MO.) [address] [place] Moya (Erica Maldonado) TOTAL 5 NOTE: Visits indicate total known visits. 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 of aspirin - Nicotine dependence, unspecified, uncomplicated - Other extermination supervisor (current) drug therapy - Personal history of transient ischemic attack (TIA), and cerebral infarction without residual deficits - Unspecified abdominal hernia without obstruction or gangrene 06/29/2023 16:20 [facility] [place] TYPE: Emergency COMPLAINT: - SHORTNESS OF BREATH 04/24/2023 15:15 [facility] Latonia DAVIS (Erica Maldonado) TYPE: Emergency DIAGNOSES: - Chest pain, unspecified - ambulance - Chest Pain 04/14/2023 22:08 [facility] TYPE: Emergency COMPLAINT: - SOB DIAGNOSES: - Allergy status to analgesic agent - Allergy status to narcotic agent - Allergy status to other antibiotic agents - Allergy status to other drugs, medicaments and biological substances - Allergy status to penicillin - Allergy status to sulfonamides - Chronic obstructive pulmonary disease with (acute) exacerbation - Encounter for screening for COVID-19 - Essential (primary) hypertension - 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 truck driver (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 of 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 - Nicotine dependence, unspecified, uncomplicated - Other extermination supervisor (current) drug therapy - Shortness of breath INPATIENT VISIT TRACKING (12 MO.) 06/29/2023 16:21 [facility] [place] TYPE: Observation COMPLAINT: - COPD DIAGNOSES: - Allergy status to narcotic agent - Allergy status to other antibiotic agents - Allergy status to other drugs, medicaments and biological substances - Allergy status to penicillin - Body mass index [BMI] 30.0-30.9, adult - Chronic obstructive pulmonary disease with (acute) exacerbation - Dependence on supplemental oxygen - Essential (primary) hypertension - 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 truck driver (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 of aspirin - Nicotine dependence, unspecified, uncomplicated - Obesity, unspecified - Other extermination supervisor (current) drug therapy - Shortness of breath [email or web address]
[2023-10-16] MEDS ORDERED: ALBUTEROL SULFATE 0.5% 2.5 MG/0.5 ML VIAL INH ONE (02:00)
[2023-10-16 02:21] LABS: PH, VENOUS 7.355 (7.31-7.41)
[2023-10-16 02:23] LABS: BASOPHILS 0.4 % (0-2); EOSINOPHILS 9.2 % (0-6); HEMOGLOBIN 14.3 g/dL (12.0-18.0); LYMPHOCYTES 29.9 % (24-44); MCH 29.5 (27-36); MCHC 33.2 g/dl (30-36); MCV 88.8 fl (81-99); MONOCYTES 8.8 % (0-12); NEUTROPHILS 51.7 % (39-80); PLATELET COUNT 294 K/uL (140-440); RBC 4.84 M/ul (4.3-5.7); RDW 14.2 (10.5-15.0)
[2023-10-16 02:47] LABS: ALBUMIN 3.9 g/dL (3.4-5.0); ALBUMIN/GLOBULIN RATIO 1.18 (1.1-2.4); ANION GAP 11.8 (7-21); BILIRUBIN, TOTAL 0.5 ng/dL (0.2-1.0); BUN/CREATININE RATIO 14.28 (6.0-28.6); CREATININE, SERUM 0.91 mg/dL (0.55-1.02); POTASSIUM 3.8 mmol/L (3.5-5.1); PROTEIN, TOTAL 7.2 g/dL (6.4-8.2)
[2023-10-16] MEDS ORDERED: ALBUTEROL SULFATE 0.083% 3 ML VIAL INH PRN (03:00)
[2023-10-16] MEDS ORDERED: ACETAMINOPHEN 325 MG TAB PO PRN (03:00)
[2023-10-16] MEDS ORDERED: methylPREDNISolone SOD SUCC 125 MG/2 ML VIAL IV SCH (06:00)
[2023-10-16] MEDS ORDERED: ALBUTEROL/IPRATROPIUM 3 ML NEB INH SCH (08:00)
[2023-10-16] MEDS ORDERED: VITAMIN C500 M1 PO (11:17)
[2023-10-16] MEDS ORDERED: IPRAT-ALBUT 0.5-3 ML INH (11:17)
[2023-10-16] MEDS ORDERED: ACETAMINOPHEN 500 MG TAB PO PRN (16:00)
[2023-10-16] MEDS ORDERED: ESCITALOPRAM OXALATE 10 MG TAB PO SCH (21:00)
[2023-10-16] MEDS ORDERED: methylPREDNISolone SOD SUCC 40 MG/ML VIAL IV SCH (21:00)
--- NOTE | 2023-10-16 21:58 | EKG ---
[facility] [address] [facility] [place] [address] Signed Sinus tachycardia Otherwise normal ECG When compared with ECG of 13-SEP-2022 15:42, Vent. rate has increased BY 45 BPM Nonspecific T wave abnormality has replaced inverted T waves in Anterior leads Confirmed by ASYA SANTOS MD ([id number]) on 10/16/2023 9:58:53 PM Electronically Signed By: ASYA SANTOS 10/16/23 2158 PATIENT NAME: MARSHAALEX HOLLINGSWORTH Electrocardiogram DATE OF : 60 PHYSICIAN: ASYA SANTOS REPORT #: [id number] REPORT IS CONFIDENTIAL AND NOT TO BE RELEASED WITHOUT AUTHORIZATION
[2023-10-17 00:30] VITALS: BP 160/94
[2023-10-17] MEDS ORDERED: ONDANSETRON 4 MG TAB ODT SL PRN (01:15)
[2023-10-17 04:29] LABS: BASOPHILS 0.1 % (0-2); EOSINOPHILS 0.1 % (0-6); HEMATOCRIT 41.2 % (35.0-50.0); HEMOGLOBIN 13.7 g/dL (12.0-18.0); LYMPHOCYTES 5.7 % (24-44); MCH 29.4 (27-36); MCHC 33.2 g/dl (30-36); MCV 88.6 fl (81-99); MONOCYTES 4.3 % (0-12); NEUTROPHILS 89.8 % (39-80); PLATELET COUNT 309 K/uL (140-440); RBC 4.65 M/ul (4.3-5.7); RDW 14.4 (10.5-15.0)
[2023-10-17 04:47] LABS: ALBUMIN/GLOBULIN RATIO 1.25 (1.1-2.4); ANION GAP 10.9 (7-21); BILIRUBIN, TOTAL 0.4 ng/dL (0.2-1.0); BUN/CREATININE RATIO 19.19 (6.0-28.6); CALCIUM 9.3 mg/dL (8.5-10.1); CREATININE, SERUM 0.99 mg/dL (0.55-1.02); POTASSIUM 3.9 mmol/L (3.5-5.1); PROTEIN, TOTAL 7.2 g/dL (6.4-8.2)
[2023-10-17 04:56] VITALS: BP 138/94
[2023-10-17] MEDS ORDERED: HEPARIN SOD,PORK IN 0.45% NACL 500 ML IV SCH (06:30)
[2023-10-17] MEDS ORDERED: HEParin SOD (PORCINE) 5,000 UNIT/ML VIAL IV ONE (06:30)
[2023-10-17 06:52] LABS: INR 1.04 (0.80-1.30); PROTIME 12.9 Sec (11.2-14.2)
[2023-10-17] MEDS ORDERED: NITROGLYCERIN PACKET TOP ONE (07:00)
[2023-10-17 08:20] VITALS: BP 126/77
[2023-10-17] MEDS ORDERED: ASPIRIN 81 MG CHEW PO ONE (09:00)
[2023-10-17] MEDS ORDERED: atenoloL 25 MG TAB PO SCH (09:00)
[2023-10-17 10:51] VITALS: BP 126/77
--- NOTE | 2023-10-19 19:34 | EKG ---
[facility] [address] [facility] [place], [place] [address] S[address] Sinus tachycardia Nonspecific [address] and T wave abnormality Abnormal ECG When compared with ECG of 16-OCT-2023 02:18, Inverted T waves have replaced nonspecific T wave abnormality in Anterior leads Confirmed by ASYA SANTOS MD ([id number]) on 10/19/2023 7:34:06 PM Electronically Signed By: ASYA SANTOS 10/19/231933 PATIENT NAME: ALEX JIMENEZ Electrocardiogram DATE OF : 60 PHYSICIAN: ASYA SANTOS REPORT #: [id number] REPORT IS CONFIDENTIAL AND NOT TO BE RELEASED WITHOUT AUTHORIZATION
== END 2023-10-17 11:11 | disposition short-term general hospital (02) | DRG 190 ==
LOC: ED 01:56 → MS 01:58
PROVIDERS: Family Medicine; ADMIT Internal Medicine; ATTEND Internal Medicine
DX: J44.1 Chronic obstructive pulmonary disease with (acute) exacerbation (principal); I21.9 Acute myocardial infarction, unspecified; I10 Essential (primary) hypertension; F17.210 Nicotine dependence, cigarettes, uncomplicated; F12.90 Cannabis use, unspecified, uncomplicated; Z90.49 Acquired absence of other specified parts of digestive tract; Z98.890 Other specified postprocedural states; Z86.73 Personal history of transient ischemic attack (TIA), and cerebral infarction without residual deficits; Z90.710 Acquired absence of both cervix and uterus; Z88.0 Allergy status to penicillin; Z88.2 Allergy status to sulfonamides; Z88.8 Allergy status to other drugs, medicaments and biological substances; Z88.5 Allergy status to narcotic agent; Z79.899 Other long term (current) drug therapy; Z79.51 Long term (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 of inhaled steroids; Z79.2 Long term (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 of antibiotics; Z79.82 Long term (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 of aspirin
CPT/HCPCS: 36415; 71045; 80053; 82803; 83880; 84484; 85025; 85379; 85610; 85730; 93005; 93010; 94640; 94644; 94760; 94762; 96375; 96376; A9270; G0378; J1644; J2919

== ENCOUNTER 2024-02-16 22:09 | Emergency (ER) | payer OTHER ==
[~2024-02-16] VITALS: Ht 157.5 cm; Wt 69.5 kg
[~2024-02-16 22:09] MED LIST changes: +VITAMIN C500 M1 PO
[2024-02-16 23:21] VITALS: BP 100/75
== END 2024-02-16 23:20 | disposition home or self-care (01) ==
LOC: ED 22:09
DX: S90.31XA Contusion of right foot, initial encounter (principal); I10 Essential (primary) hypertension; J98.4 Other disorders of lung; J44.9 Chronic obstructive pulmonary disease, unspecified; F17.200 Nicotine dependence, unspecified, uncomplicated; Z86.73 Personal history of transient ischemic attack (TIA), and cerebral infarction without residual deficits; Z88.0 Allergy status to penicillin; Z88.2 Allergy status to sulfonamides; Z88.1 Allergy status to other antibiotic agents; Z88.5 Allergy status to narcotic agent; Z88.8 Allergy status to other drugs, medicaments and biological substances; Z88.6 Allergy status to analgesic agent; Z79.82 Long term (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 of aspirin; Z79.899 Other long term (current) drug therapy; W22.8XXA Striking against or struck by other objects, initial encounter
CPT/HCPCS: 73630; 99283

== ENCOUNTER 2024-03-09 15:48 | Emergency (ER) | payer OTHER ==
[~2024-03-09] VITALS: Ht 157.5 cm; Wt 69.3 kg
--- OUTSIDE RECORDS SUMMARY | 2024-03-09 15:55 | XMS ---
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 Security Community Specialist Events No recent Security Events currently on file CRITERIA MET - [facility] - 2 Visits in 30 Days CARE PROVIDERS -, [facility] Dentist: Agent Telegrapher [facility] PHONE: [phone] - [place]- Dentist: Agent Telegrapher [facility] Dental [facility] PHONE: [phone] ALEXIA SLOAN [facility] Current PHONE: [phone] MAHAD MALDONADO [facility] PHONE: Unknown Care Guidelines exist for the following facilities: [facility] ( 11/13/2018 ) Care History Medical/Surgical 12/13/2018 [facility] \R\- EOIPA REFERRAL MADE DUE TO PATIENT RECENT HOSPITALIZATION. Ernie VISIT COUNT (12 MO.) [address] Lat[place] Moya (Erica Maldonado) TOTAL 7 NOTE: Visits indicate total known visits. ED/UCC VISIT TRACKING (12 MO.) 03/09/2024 15:49 [facility] [place] TYPE: Emergency COMPLAINT: - TROUBLE BREATHING 02/16/2024 22:10 [facility] [place] TYPE: Emergency COMPLAINT: - EXTREMITY INJURY DIAGNOSES: - Allergy status to analgesic agent - Allergy status to narcotic agent - Allergy status to other antibiotic agents - Allergy status to other drugs, medicaments and biological substances - Allergy status to penicillin - Allergy status to sulfonamides - Chronic obstructive pulmonary disease, unspecified - Contusion of right foot, initial encounter - Essential (primary) hypertension - senior living (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 of aspirin - Nicotine dependence, unspecified, uncomplicated - Other disorders of lung - Other mcfp (current) drug therapy - Pain in right foot - Personal history of transient ischemic attack (TIA), and cerebral infarction without residual deficits - Striking against or struck by other objects, initial encounter 10/16/2023 01:57 [facility] [place] TYPE: Emergency [...] disease, unspecified - Essential (primary) hypertension - senior living (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 of aspirin - Nicotine dependence, unspecified, uncomplicated - Other exterminator termite (current) drug therapy - Personal history of transient ischemic attack (TIA), and cerebral infarction without residual deficits - Unspecified abdominal hernia without obstruction or gangrene 06/29/2023 16:20 [facility] [place] TYPE: Emergency COMPLAINT: - SHORTNESS OF BREATH 04/24/2023 15:15 [facility] [place] DAVIS (Erica Maldonado) TYPE: Emergency [...] for COVID-19 - Essential (primary) hypertension - senior living (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 of aspirin - Nicotine dependence, unspecified, uncomplicated - Other mcfp (current) drug therapy - Shortness of breath INPATIENT VISIT TRACKING (12 MO.) 10/17/2023 12:29 [facility] [place] TYPE: Medical Surgical COMPLAINT: - NSTEMI DIAGNOSES: 0. Non-ST elevation (NSTEMI) myocardial infarction 1. Chronic obstructive pulmonary disease with (acute) exacerbation 2. Myocardial infarction type 2 3. Acute respiratory failure with hypoxia 4. Gastro-esophageal reflux disease without esophagitis 5. Major depressive disorder, single episode, unspecified 6. Cannabis dependence, uncomplicated 7. Umbilical hernia without obstruction or gangrene 8. Other chronic pain 9. Disorder of brain, unspecified 10. Elevated white blood cell count, unspecified 11. Adverse effect of glucocorticoids and synthetic analogues, initial encounter 12. Unspecified abdominal pain 13. Personal history of transient ischemic attack (TIA), and cerebral infarction without residual deficits 14. Allergy status to other drugs, medicaments and biological substances 15. Dependence on supplemental oxygen 16. Allergy status to sulfonamides 17. exterminator termite (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 of aspirin 18. Personal history of nicotine dependence 10/17/2023 08:[address] [facility] [place] TYPE: Medical Surgical COMPLAINT: - COPD EXACERBATION DIAGNOSES: - Acquired absence of both cervix and uterus - Acquired absence of both cervix and uterus - Acquired absence of other specified parts of digestive tract - Acquired absence of other specified parts of digestive tract - Acute myocardial infarction, unspecified - Acute myocardial infarction, unspecified - Allergy status to narcotic agent - Allergy status to narcotic agent - Allergy status to other drugs, medicaments and biological substances - Allergy status to other drugs, medicaments and biological substances - Allergy status to penicillin - Allergy status to penicillin - Allergy status to sulfonamides - Allergy status to sulfonamides - Cannabis use, unspecified, uncomplicated - Cannabis use, unspecified, uncomplicated - Chronic obstructive pulmonary disease with (acute) exacerbation - Essential (primary) hypertension - Essential (primary) hypertension - exterminator termite (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 of antibiotics - exterminator termite (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 of antibiotics - exterminator termite (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 of aspirin - senior living (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 of aspirin - senior living (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 of inhaled steroids - senior living (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 of inhaled steroids - Nicotine dependence, cigarettes, uncomplicated - Nicotine dependence, cigarettes, uncomplicated - Other exterminator termite (current) drug therapy - Other exterminator termite (current) drug therapy - Other specified postprocedural states - Other specified postprocedural states - Personal history of transient ischemic attack (TIA), and cerebral infarction without residual deficits - Personal history of transient ischemic attack (TIA), and cerebral infarction without residual deficits 06/29/2023 16:[address] [facility] [place] TYPE: Observation COMPLAINT: - COPD DIAGNOSES: - Allergy status to narcotic agent - Allergy status to other antibiotic agents - Allergy status to other drugs, medicaments and biological substances - Allergy status to penicillin - Body mass index [BMI] 30.0-30.9, adult - Chronic obstructive pulmonary disease with (acute) exacerbation - Dependence on supplemental oxygen - Essential (primary) hypertension - exterminator termite (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 of aspirin - Nicotine dependence, unspecified, uncomplicated - Obesity, unspecified - Other exterminator termite (current) drug therapy - Shortness of breath [email or web address]
[2024-03-09] MEDS ORDERED: TIOTROPIUM BRO18 MCG INH (16:28)
[2024-03-09] MEDS ORDERED: ROSUVASTATIN CAL5 MG PO (16:29)
[2024-03-09] MEDS ORDERED: ALBUTEROL/IPRATROPIUM 3 ML NEB INH PRN (16:30)
[2024-03-09 16:37] LABS: BASOPHILS 0.2 % (0-2); EOSINOPHILS 10.8 % (0-6); HEMATOCRIT 45.3 % (35.0-50.0); HEMOGLOBIN 15.1 g/dL (12.0-18.0); LYMPHOCYTES 30.5 % (24-44); MCH 29.1 (27-36); MCHC 33.4 g/dl (30-36); MCV 87.1 fl (81-99); MONOCYTES 8.9 % (0-12); NEUTROPHILS 49.6 % (39-80); PLATELET COUNT 374 K/uL (140-440); RDW 15.7 (10.5-15.0)
[2024-03-09 16:51] LABS: ALBUMIN 3.6 g/dL (3.4-5.0); ALBUMIN/GLOBULIN RATIO 1.06 (1.1-2.4); ANION GAP 14.4 (7-21); BILIRUBIN, TOTAL 0.6 ng/dL (0.2-1.0); BUN/CREATININE RATIO 7.07 (6.0-28.6); CALCIUM 8.9 mg/dL (8.5-10.1); CREATININE, SERUM 1.13 mg/dL (0.55-1.02); MAGNESIUM 2.1 mg/dL (1.8-2.4); POTASSIUM 3.4 mmol/L (3.5-5.1)
[2024-03-09] MEDS ORDERED: ALBUTEROL SULFATE 0.5% 2.5 MG/0.5 ML VIAL INH ONE (17:15)
[2024-03-09] MEDS ORDERED: IPRATROPIUM BROMIDE 2.5 ML VIAL INH ONE (17:15)
[2024-03-09] MEDS ORDERED: methylPREDNISolone SOD SUCC 125 MG/2 ML VIAL IV ONE (17:15)
[2024-03-09 17:58] LABS: INFLUENZA B NAA NEGATIVE (NEGATIVE); RESPIRATORY SYNCYTIAL VIR NAA NEGATIVE (NEGATIVE)
[2024-03-09] MEDS ORDERED: PREDNISONE20 MG PO (20:08)
[2024-03-09 20:17] VITALS: BP 137/96
--- NOTE | 2024-03-09 21:01 | EKG ---
[facility] [address] [facility] [place] [address] Signed Sinus tachycardia Otherwise normal ECG When compared with ECG of 17-OCT-2023 02:29, Nonspecific T wave abnormality has replaced inverted T waves in Anterior leads Confirmed by Dash Sterling MD ([id number]) on 03/09/2024 9:01:42 PM Electronically Signed By: DASH STERLING DO 03/09/242100 PATIENT NAME: ALEX JIMENEZ Electrocardiogram DATE OF : 60 PHYSICIAN: DASH STERLING DO REPORT #: [id number] REPORT IS CONFIDENTIAL AND NOT TO BE RELEASED WITHOUT AUTHORIZATION
== END 2024-03-09 20:17 | disposition home or self-care (01) ==
LOC: ED 15:48
PROVIDERS: Emergency Medicine
DX: J43.9 Emphysema, unspecified (principal); I10 Essential (primary) hypertension; F17.200 Nicotine dependence, unspecified, uncomplicated; Z88.0 Allergy status to penicillin; Z88.2 Allergy status to sulfonamides; Z88.1 Allergy status to other antibiotic agents; Z88.5 Allergy status to narcotic agent; Z88.8 Allergy status to other drugs, medicaments and biological substances; Z79.82 Long term (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 of aspirin; Z79.899 Other long term (current) drug therapy
CPT/HCPCS: 36415; 71045; 80053; 83735; 83880; 84484; 85025; 87502; 93005; 93010; 94640; 96374; 99285-25; J2919; U0002

== ENCOUNTER 2024-06-18 15:03 | Inpatient (IN) | payer OTHER ==
[~2024-06-18] VITALS: Ht 157.5 cm; Wt 71.3 kg
[~2024-06-18 15:03] MED LIST changes: +ROSUVASTATIN CAL5 MG PO; +TIOTROPIUM BRO18 MCG INH
[2024-06-18] MEDS ORDERED: HYDROXYZINE HCL25 MG PO (15:11)
[2024-06-18] MEDS ORDERED: ALBUTEROL SULFATE 0.5% 2.5 MG/0.5 ML VIAL INH ONE ×2 (15:15→17:15)
[2024-06-18] MEDS ORDERED: methylPREDNISolone SOD SUCC 125 MG/2 ML VIAL IV ONE (15:15)
[2024-06-18 15:20] LABS: BASOPHILS 1.3 % (0-2); EOSINOPHILS 7.1 % (0-6); HEMATOCRIT 42.9 % (35.0-50.0); HEMOGLOBIN 14.7 g/dL (12.0-18.0); LYMPHOCYTES 23.1 % (24-44); MCH 29.9 (27-36); MCHC 34.2 g/dl (30-36); MCV 87.3 fl (81-99); MONOCYTES 8.9 % (0-12); NEUTROPHILS 59.6 % (39-80); PLATELET COUNT 340 K/uL (140-440); RBC 4.91 M/ul (4.3-5.7); RDW 13.7 (10.5-15.0)
[2024-06-18 15:41] LABS: ALBUMIN 3.8 g/dL (3.4-5.0); ALBUMIN/GLOBULIN RATIO 1.27 (1.1-2.4); ANION GAP 12.4 (7-21); BILIRUBIN, TOTAL 0.6 mg/dL (0.2-1.0); BUN/CREATININE RATIO 13.75 (6.0-28.6); CALCIUM 9.4 mg/dL (8.5-10.1); CREATININE, SERUM 0.8 mg/dL (0.55-1.02); POTASSIUM 4.4 mmol/L (3.5-5.1); PROTEIN, TOTAL 6.8 g/dL (6.4-8.2)
[2024-06-18 15:44] LABS: CORONAVIRUS COVID-19 AG NEGATIVE (NEGATIVE); INFLUENZA A AG NEGATIVE (NEGATIVE); INFLUENZA B AG NEGATIVE (NEGATIVE)
[2024-06-18] MEDS ORDERED: ACETAMINOPHEN 325 MG TAB PO PRN (19:00)
[2024-06-18] MEDS ORDERED: ondansetron HCL 4 MG/2 ML VIAL IV PRN (19:00)
--- NOTE | 2024-06-18 19:21 | EKG ---
[facility] [address] [place] [address] Signed Normal sinus rhythm Normal ECG When compared with ECG of 09-MAR-2024 16:42, Vent. rate has decreased BY 35 BPM Confirmed by Abhishek Denney MD () on 06/18/2024 7:21:44 PM Electronically Signed By: ABHISHEK DENNEY MD 06/18/241920 PATIENT NAME: TONYALEX Electrocardiogram DATE OF : 60 PHYSICIAN: ABHISHEK DENNEY MD REPORT #: [id number] REPORT IS CONFIDENTIAL AND NOT TO BE RELEASED WITHOUT AUTHORIZATION
[2024-06-18] MEDS ORDERED: ALBUTEROL SULFATE 0.083% 3 ML VIAL INH PRN (19:30)
[2024-06-18] MEDS ORDERED: ALBUTEROL/IPRATROPIUM 3 ML NEB INH SCH (19:30)
--- NOTE | 2024-06-18 19:30 | NUR ---
REPORT RECEIVED FROM ALEXY ROBLERO. pt ARRIVED TO THE FLOOR VIA STRETCHER. pt ABLE TO WALK TO THE MED/SURG BED. pt ON 2LNC. VITAL SIGNS DONE. pt SETTLED IN THE BED.
[2024-06-18 19:40] VITALS: BP 134/82
[2024-06-18] MEDS ORDERED: BENZONATATE 100 MG CAP PO PRN (19:45)
[2024-06-18] MEDS ORDERED: guaiFENesin 600 MG TABCR PO PRN (19:45)
[2024-06-18] MEDS ORDERED: AZITHROMYCIN 500 MG VIAL ONE (19:57)
[2024-06-18 20:00] VITALS: BP 134/82
[2024-06-18] MEDS ORDERED: BUDESONIDE 0.5 MG/2 ML VIAL INH SCH (20:00)
--- NOTE | 2024-06-18 20:02 | NUR ---
pt ARRIVES VIA STRETCHER WITH TUB OPERATOROSBALDO TRACEY. TRANSFERS SELF TO HOSPITAL BED, LABORED BREATHING WITH ACTIVITY. SPO2 92% WITH 2L OXYGEN BY NC, RR 26. ADMISSION HISTORY COMPLETE. ORIENTATION TO ROOM PROVIDED. CALL LIGHT AND PERSONAL SUPPLIES WITHIN REACH, pt DENIES ADDITIONAL NEEDS.
--- NOTE | 2024-06-18 20:20 | NUR ---
SCHEDULED AND PRN MEDS ADMINISTERED. ADMISSION AND ASSESSMENT DONE. WATER REFRESHED. WHEEZES IN THE RIGHT LUNG. pt DENIES ANY OTHER NEEDS AT THIS TIME. CALL LIGHT WITHIN REACH.
--- NOTE | 2024-06-18 20:52 | NUR ---
ERICKA IS LAYING IN BED WATCHING TV ON HER PHONE. SHE IS ON A 2L NOC. HOB IS ALMOST FLAT AT 19 DEGREES. ERICKA IS ABLE TO USE THE CORNET LEVEL 5 W/O DIFFICULTY OR INCREASED S/S OF RESPIRATORY DISTRESS.
[2024-06-18] MEDS ORDERED: MELATONIN 3 MG TAB PO PRN (21:00)
[2024-06-18] MEDS ORDERED: AZITHROMYCIN 500 MG in DEXTROSE 5% 250 ML IV SCH (21:00)
--- NOTE | 2024-06-18 21:15 | NUR ---
pt CALLED FOR IV ALARMING. IV ASSESSED, AND SL. pt REQUESTED TO GO TO THE BR. SBA pt INCREASED TO 4LNC DUE TO SOB. pt BACK TO BED AND TITRATED BACK DOWN TO 2LNC. CPOX ON. pt DENIES ANY OTHER NEEDS AT THIS TIME. CALL LIGHT WITHIN REACH.
[2024-06-19] VITALS (7 sets, daily range): BP systolic 97–130; BP diastolic 64–81
--- NOTE | 2024-06-19 00:17 | NUR ---
pt RESTING IN THE BED WITH EYES CLOSED. RR EVEN AND UNLABORED. CALL LIGHT WITHIN REACH.
--- NOTE | 2024-06-19 01:54 | NUR ---
GUIDE CHANGER OBTAINED VITALS AND I&O. PT STATES NO NEEDS AT THIS TIME. CALL LIGHT WITHIN REACH.
--- NOTE | 2024-06-19 02:09 | NUR ---
pt RESTING IN THE BED WITH EYES CLOSED. RR EVEN AND UNLABORED. CALL LIGHT WITHIN REACH.
--- NOTE | 2024-06-19 04:16 | NUR ---
ERICKA IS ASLEEP. SHE HAS REQUESTED NOT TO AWAKEN HER FOR BREATING TREATMENTS.
--- NOTE | 2024-06-19 04:16 | NUR ---
pt RESTING IN THE BED WITH EYES CLOSED. RR EVEN AND UNLABORED. CALL LIGHT WITHIN REACH.
--- NOTE | 2024-06-19 05:50 | NUR ---
RECYCLING OPERATOR OBTAINED VITALS. NO NEW I&O AT THIS TIME. PT STATES NO NEEDS AT THIS TIME. CALL LIGHT WITHIN REACH.
[2024-06-19 05:55] LABS: BASOPHILS 0.6 % (0-2); EOSINOPHILS 0.1 % (0-6); HEMATOCRIT 40.1 % (35.0-50.0); HEMOGLOBIN 13.6 g/dL (12.0-18.0); LYMPHOCYTES 9.3 % (24-44); MCH 30.1 (27-36); MCHC 33.9 g/dl (30-36); MCV 88.8 fl (81-99); MONOCYTES 2.8 % (0-12); NEUTROPHILS 87.2 % (39-80); PLATELET COUNT 314 K/uL (140-440); RBC 4.52 M/ul (4.3-5.7); RDW 13.4 (10.5-15.0)
[2024-06-19 06:23] LABS: ALBUMIN 3.5 g/dL (3.4-5.0); ALBUMIN/GLOBULIN RATIO 1.17 (1.1-2.4); ANION GAP 13.4 (7-21); BILIRUBIN, TOTAL 0.5 mg/dL (0.2-1.0); BUN/CREATININE RATIO 14.28 (6.0-28.6); CALCIUM 9.2 mg/dL (8.5-10.1); CREATININE, SERUM 1.05 mg/dL (0.55-1.02); MAGNESIUM 2.1 mg/dL (1.8-2.4); PHOSPHORUS, INORGANIC 4.6 mg/dL (2.5-4.9); POTASSIUM 4.4 mmol/L (3.5-5.1); PROTEIN, TOTAL 6.5 g/dL (6.4-8.2)
--- NOTE | 2024-06-19 07:46 | NUR ---
RECIEVED BEDSIDE REPORT FROM OSBALDO CONNOLLY. PT IS SLEEPING SOUNDLY, BREATHING EVEN AND UNLABORED. NO NEEDS AT THIS TIME.
[2024-06-19] MEDS ORDERED: ALBUTEROL/IPRATROPIUM 3 ML NEB INH SCH (08:00)
[2024-06-19] MEDS ORDERED: ENOXAPARIN SODIUM 40 MG/0.4 ML SYR SUB-Q SCH (09:00)
[2024-06-19] MEDS ORDERED: PREDNISONE10 MG PO (09:29)
[2024-06-19] MEDS ORDERED: VENTOLIN HFA18 GM INH (09:37)
--- NOTE | 2024-06-19 10:37 | NUR ---
UR CLINICAL REVIEW: MCG, MEETS INPT FOR COPD. INCREASE NEED FOR OXYGEN, WHEEZING NOTED. IV ANTIBIOTICS, IV STEROIDS [facility]O INPT 06/18/24 @ 1902 ORDER MATCHES REG AUTH PENDING, WILL SEND CLINICALS TODAY VIA RIGHTFAX PLAN TO DC TO HOME WHEN MEDICALLY CLEARED. 06/21/24
--- NOTE | 2024-06-19 11:34 | NUR ---
CHECKED ON PATIENT. SHE IS SLEEPING, BREATHING EVEN AND UNLABORED. CPOX IN PLACE. NO NEEDS AT THIS TIME.
[2024-06-19] MEDS ORDERED: PHARMACY RENAL DOSE ADJUSTMENT 1 DOSE MISC PO SCH (12:00)
[2024-06-19] MEDS ORDERED: hydrOXYzine pamoate 25 MG CAP PO PRN (13:30)
[2024-06-19] MEDS ORDERED: ASPIRIN 81 MG CHEW PO PRN (13:30)
[2024-06-19] MEDS ORDERED: PANTOPRAZOLE SODIUM 40 MG TABEC PO SCH (13:31)
[2024-06-19] MEDS ORDERED: methylPREDNISolone SOD SUCC 125 MG/2 ML VIAL IV SCH (16:00)
--- NOTE | 2024-06-19 16:00 | NUR ---
Spoke selina Pabon. She lives in an apartment without steps. She has 02 from [facility] in her home. She would like a portable concentrator. Pt lives alone, her daughter lives in the area and assists her. Pt states she rarely goes out as she has anxiety and agoraphobia. She uses food stamps. Has [facility] transport if needed. She uses [employer] for rent assistance and also has contacted [employer] for utility assistance. She denies having any shut off notices. She plans on dc to home when cleared medically.
--- NOTE | 2024-06-19 18:28 | NUR ---
PATIENT IS IN HER BED AT THIS TIME, RANGE FEEDER CHARTED VITALS NO I&O'S TO BE CHARTED. CALL LIGHT WITH IN REACH AND NOTHING ELSE NEEDED AT THIS TIME.
--- NOTE | 2024-06-19 19:43 | NUR ---
RECEIVED REPORT FROM OSBALDO HELTON. PT RESTING IN BED PLAYNG ON HER PHONE. ANSWERED QUESTIONS ABOUT HS MEDS. NO FURTHER NEEDS OR CONCERNS AT THIS TIME.
--- NOTE | 2024-06-19 20:10 | NUR ---
ERICKA IS SITTING IN BED ON A 1L NC. HOB IS AT 7 DEGREES. ERICKA IS ABLE TO USE THE CORNET LEVEL 5 W/O DIFFICULTY OR INCREASED S/S OF RESPORATORY DISTRESS
--- NOTE | 2024-06-19 20:30 | NUR ---
PT RESTING IN BED ON PHONE. ORIENTED X 4/ CALLS APPROPRIATELY FOR ASSIST. DENIES PAIN. PT ON 1L O2 N/C. PT INTERMITTENTLY REMOVES N/C FOR SHORT PERIODS. REPORST SOB AT REST AND HU[place]. LS W/ COARSE CRACKLES TO LEFT POST BASE. MNPC. HRR. BTA, LBM YESTERDAY 06/18. LARGE ABD HERNIA. VOIDS WNL. LH IV SL'D. CALL LIGHT WITHIN REACH.
[2024-06-19] MEDS ORDERED: AZITHROMYCIN 500 MG VIAL ONE (20:32)
--- NOTE | 2024-06-19 21:07 | NUR ---
DYE BOARDING MACHINE OPERATOR OBTAINED VITALS. NO NEW I&O AT THIS TIME. PT STATES NO NEEDS AT THIS TIME AND CALL LIGHT WITHIN REACH.
--- NOTE | 2024-06-19 21:52 | NUR ---
PT REPORTS IV SITE BURNING W/ IV ATB INFUSION. IV SITE SHOWS NO SIGNS OF INFILTRATION, NO REDNESS, NO SWELLING. IV FLUSHED W/ NS, NO BLOOD RETURN PRESENT. HEADER MACHINE OPERATOR IN TO ASSESS IV SITE. PT OK W/ CONTINUING INFUSION. LEFT ARM ELEVATED ON PILLOW AND WARM BLANKET APPLIED.
--- NOTE | 2024-06-19 23:49 | NUR ---
PT SLEEPING SOUNDLY ON RIGHT SIDE. CPOX IN PLACE-1L O2 IN PLACE.
[2024-06-20] VITALS (7 sets, daily range): BP systolic 116–149; BP diastolic 62–88
--- NOTE | 2024-06-20 00:39 | NUR ---
PT WATCHING TV ON PHONE AT THIS TIME. DENIES NEEDS OR CONCERNS.
--- NOTE | 2024-06-20 03:26 | NUR ---
PT SLEEPING SOUNDLY, APPEARS COMFORTABLE.
--- NOTE | 2024-06-20 05:33 | NUR ---
AGENT BASED MODELER OBTAINED VITALS AND I&O. PT STATES NO NEEDS AT THIS TIME. CALL LIGHT WITHIN REACH.
--- NOTE | 2024-06-20 05:34 | NUR ---
PT AWAKE, SLEEPING BETWEEN CARE. LAB IN TO DRAW BLOOD. LS W/ EXP WHEEZES UPPER LOBES AND CRACKLES TO BASES. 1L O2 IN PLACE. CPOX IN PLACE. [facility] CONTINUES. REPORTS SOB AT REST.
[2024-06-20 05:39] LABS: BASOPHILS 0.2 % (0-2); EOSINOPHILS 0.4 % (0-6); HEMATOCRIT 40.8 % (35.0-50.0); LYMPHOCYTES 9.4 % (24-44); MCH 29.7 (27-36); MCHC 34.4 g/dl (30-36); MCV 86.3 fl (81-99); MONOCYTES 2.2 % (0-12); NEUTROPHILS 87.8 % (39-80); PLATELET COUNT 339 K/uL (140-440); RBC 4.72 M/ul (4.3-5.7); RDW 13.6 (10.5-15.0)
[2024-06-20 06:04] LABS: ALBUMIN 3.6 g/dL (3.4-5.0); ALBUMIN/GLOBULIN RATIO 1.2 (1.1-2.4); ANION GAP 10.5 (7-21); BILIRUBIN, TOTAL 0.4 mg/dL (0.2-1.0); BUN/CREATININE RATIO 23.8 (6.0-28.6); CALCIUM 9.3 mg/dL (8.5-10.1); CREATININE, SERUM 0.84 mg/dL (0.55-1.02); POTASSIUM 4.5 mmol/L (3.5-5.1); PROTEIN, TOTAL 6.6 g/dL (6.4-8.2)
--- NOTE | 2024-06-20 07:20 | NUR ---
PT RESTING IN BED W/ EYES CLOSED. RR EVEN AND UNLABORED. BED IN LOWEST POSITION, CALL LIGHT IN REACH.
--- NOTE | 2024-06-20 07:40 | NUR ---
RECIEVED BEDSIDE REPORT FROM OSBALDO HERNANDEZ. PT RESTING COMFORTABLY AFTER BEING AWKAE MUCH OF THE NIGHT. NO NEEDS AT THIS TIME.
[2024-06-20] MEDS ORDERED: ALBUTEROL/IPRATROPIUM 3 ML NEB INH SCH ×2 (08:00)
--- NOTE | 2024-06-20 08:28 | NUR ---
PT RESTING IN BED. RT IN ROOM. PT DENIES ANY NEEDS AT THIS TIME, CALL LIGHT IN REACH.
--- NOTE | 2024-06-20 08:48 | NUR ---
PT SITTING UP IN BED. RN IN ROOM. PT DENIES NEEDS AT THIS TIME. CALL LIGHT IN REACH
--- NOTE | 2024-06-20 09:16 | NUR ---
PT SITTING UP IN BED. VITALS AND I'S AND O'S COMPLETE. PT 88% ON RA. PT STATED SHE TOOK HER NC OFF ABOUT AN HOUR AGO D/T IT "BOTHERING" HER. PT NC PLACED BACK ON AND NOW 92% ON 1L NC. PT PROVIDED ICE WATER. PT DECLINES BATHROOM NEEDS AT THIS TIME. PT STATES SHE WOULD LIKE TO SHOWER AFTER LUNCH TODAY. PT DECLINES FURTHER NEEDS AT THIS TIME, CALL LIGHT IN REACH.
--- NOTE | 2024-06-20 09:54 | NUR ---
REFERRED BY OSBALDO HELTON. PT SITTING UP IN BED PLAYING GAME ON PHONE, STATED "NOT HAPPY." FURTHER INQUIRY REVEALED PT UNHAPPY SHE COULD NOT BREATHE, AWARE THAT TIME IS NECESSARY FOR HEALING, EXPRESSED FRUSTRATION THAT WALL PHONE NOT WORKING, STATED NEEDED TO MAKE PHONE CALL TO [facility] AND HER PHONE IS INTERNET ONLY - NO TALK SERVICE. ACCEPTED OFFER OF PHONE TO USE TO MAKE THAT CALL. COUNSELOR AID PROVIDED PHONE FOR CALL TO [facility], SUPPORTIVE PRESENCE, HOSPITALITY, PRAYER. PT EXPRESSED GRATITUDE FOR VISIT, APPEARED LESS UNHAPPY VOICE WAS FORM STRIPPER THAN UPON ENTRY. WILL RETURN CIRCUMSTANCES ALLOW.
--- NOTE | 2024-06-20 10:40 | NUR ---
pt resting in bed. pt denies any needs at this time. call light in reach.
--- NOTE | 2024-06-20 11:00 | NUR ---
Attempted to see pt, she is sleeping and does not awaken to voice. No plan for dc today.
--- NOTE | 2024-06-20 12:20 | NUR ---
pt resting in bed. RN in room. bed in lowest position. call light in reach
--- NOTE | 2024-06-20 12:22 | NUR ---
PT IS SLEEPING VERY SOUNDLY, BREATHING EVEN AND UNLABORED. O2 IN PLACE, SATS AT 92%. ADVISED QUALITY ASSURANCE SUPERVISOR TO LET HER SLEEP FOR A LITTLE WHILE SINCE SHE DID NOT SLEEP WELL LAST NIGHT.
--- NOTE | 2024-06-20 14:06 | NUR ---
PT RESTING IN BED. VITALS AND IS AND OS COMPLETE. PT READY TO SHOWER. THIS HANDLE ROUNDER OPERATOR TO HELP PT TO SHOWER.
--- NOTE | 2024-06-20 14:25 | NUR ---
pt up to shower. pt showered indep. this training representative and thai miguel in room to change linens. pt back to bed from shower. new brief and gown placed. pts hair braided by this training representative. pt req to know if she recieved steroid. Per Rea RN pt has not recieved steroid yet. pt notified. pt denies further needs, call light in reach
--- NOTE | 2024-06-20 15:10 | NUR ---
CHECKED ON PATIENT, SHE IS DOING WELL. SHE IS AWAKE AND ALERT, STATED THAT SHE IS FEELING BETTER. SHE IS RESTING WITH HER O2 ON, SATS 95%. EARLIER WHEN THIS RN PEEKED IN, SHE WAS ASLEEP AND SATING AT 92% WITH NO O2. SHE REPORTED SHE HAS BEEN UP TO BATHROOM, UP TO CHAIR, AND HAD LUNCH.
--- NOTE | 2024-06-20 16:00 | NUR ---
pt sitting up in bed. pt denies needs at this time. call light in reach
--- NOTE | 2024-06-20 17:37 | NUR ---
PT RESTING IN BED. VITALS AND IS AND OS COMPLETE. ICE WATER PROVIDED. PT DENIES FURTHER NEEDS CALL LIGHT IN REACH.
--- NOTE | 2024-06-20 19:32 | NUR ---
RECEIVED REPORT FROM OSBALDO HELTON. PT RESTING IN BED PLAYING ON HER PHONE. DENIES ANY NEEDS OR CONCERNS AT THIS TIME.
--- NOTE | 2024-06-20 20:15 | NUR ---
PT SITTING UP EOB, PLAYING ON PHONE. VSS. DENIES PAIN. ORIENTED X 4. LS DIM TO BASES, FEW EXP WHEEZES. CONTINUES ON 1L O2 N/C. CPOX ON. PT HAD FIT OF DRY COUGHING AFTER DEEP BREATHING. REPORTS SOB AFTER. HUDSON NOTED. HRR. BTA. LBM 06/18. VOIDS WNL. SL LH WNL. CALL LIGHT WITHIN REACH. DENIES ANY FURTHER NEEDS AT THIS TIME-RT IN TO DO NEB TX.
--- NOTE | 2024-06-20 20:18 | NUR ---
PT HAVING IV DISCOMFORT W/ IV ATB ADMINISTRATION. VERONICA CHINO ATTEMPTED NEW IV PLACEMENT W/ SOME DIFFICULTY BUT UNSUCCESSFUL. PT REQUESTING IV ATB BE CONVERTED TO PO. DR. STERLING OK'D CHANGE TO ORAL DOSE FOR FINAL DOSE AND TO CHANGE IV SOLUMEDROL TO PO 80MG DAILY.
--- NOTE | 2024-06-20 20:24 | NUR ---
MEAT PROCESSING CENTER MANAGER OBTAINED VITALS AND I&O. PT STATES NO FURTHER NEEDS AT THIS TIME. CALL LIGHT WITHIN REACH.
[2024-06-20] MEDS ORDERED: AZITHROMYCIN 250 MG TAB PO ONE (20:30)
--- NOTE | 2024-06-20 22:34 | NUR ---
PT AWAKE, TALKING ON THE PHONE. NO NEEDS AT THIS TIME.
--- NOTE | 2024-06-21 00:56 | NUR ---
CALL LIGHT ANSWERED. PT NEEDED TO USE BATHROOM. CLASSROOM PARAPROFESSIONAL SBA PT TO BATHROOM. PT VOIDED AND ASSISTED BACK TO BED. PT GIVEN SANDWISH BOX UPON REQUEST AND ICE WATER REFILLED. PT STATES NO FURTHER NEEDS AT THIS TIME. CALL LIGHT WITHIN REACH.
--- NOTE | 2024-06-21 00:59 | NUR ---
PT AWAKE, EATING A SANDWICH. DENIES ANY NEEDS AT THIS TIME.
[2024-06-21 05:11] LABS: BASOPHILS 0.2 % (0-2); HEMATOCRIT 40.6 % (35.0-50.0); LYMPHOCYTES 10.4 % (24-44); MCH 29.7 (27-36); MCHC 34.5 g/dl (30-36); MCV 86.1 fl (81-99); MONOCYTES 5.4 % (0-12); PLATELET COUNT 347 K/uL (140-440); RBC 4.72 M/ul (4.3-5.7); RDW 13.8 (10.5-15.0)
[2024-06-21 05:34] LABS: ALBUMIN 3.6 g/dL (3.4-5.0); ALBUMIN/GLOBULIN RATIO 1.24 (1.1-2.4); ANION GAP 9.5 (7-21); BILIRUBIN, TOTAL 0.3 mg/dL (0.2-1.0); BUN/CREATININE RATIO 24.21 (6.0-28.6); CALCIUM 9.1 mg/dL (8.5-10.1); CREATININE, SERUM 0.95 mg/dL (0.55-1.02); POTASSIUM 4.5 mmol/L (3.5-5.1); PROTEIN, TOTAL 6.5 g/dL (6.4-8.2)
[2024-06-21 05:43] VITALS: BP 147/81
[2024-06-21 06:09] VITALS: BP 147/81
--- NOTE | 2024-06-21 06:29 | NUR ---
PT SLEEPING, AWAKENS EASILY. PT HAS BEEN ON RA, O2 SATS 92% ON CPOX. DENIES SOB.
--- NOTE | 2024-06-21 07:26 | NUR ---
RECIEVED BEDSIDE REPORT FROM OSBALDO HERNANDEZ. PT IS SLEEPING SOUNDLY, DID NOT WAKE WHEN RN WENT INTO ROOM. O2 IS OFF, PT IS SATING AT 89-90%. NO NEEDS AT THIS TIME.
[2024-06-21] MEDS ORDERED: ALBUTEROL/IPRATROPIUM 3 ML NEB INH SCH (08:00)
[2024-06-21] MEDS ORDERED: BUDESONIDE 0.5 MG/2 ML VIAL INH SCH (08:00)
[2024-06-21] MEDS ORDERED: ESCITALOPRAM OXALATE 10 MG TAB PO SCH (09:00)
--- NOTE | 2024-06-21 09:13 | NUR ---
ASSISTED PT TO BATHROOM, PT AMBULATED INDEPENDENTLY
[2024-06-21 09:50] VITALS: BP 147/95
[2024-06-21] MEDS ORDERED: PREDNISONE20 MG PO (10:41)
[2024-06-21] MEDS ORDERED: PREDNISONE10 MG PO (10:44)
[2024-06-21] MEDS ORDERED: DULERA 100 MCG/13 GM (11:01)
[2024-06-21] MEDS ORDERED: DULERA 200 MCG/13 GM INH (11:08)
--- NOTE | 2024-06-21 12:38 | NUR ---
PT DISCHARGE TEACHING COMPLETE. DISCUSSED HER SCHEDULED APPOINTMENT ON 06/26. SHE WILL CALL A CARE RIDE FOR THE APPOINTMENT. DISCUSSED TAKING THINGS SLOW AND EASY ONCE SHE GETS HOME, USING HER HOME O2 NEEDED. RESP THEARPY PROVIDED A HOME PULSE OX AND RN PROVIDED EDUCATION ON USE. PT VERALIZED UNDERSTANDING OF DISCHARGE INSTRUCTIONS.
[2024-06-21] MEDS ORDERED: predniSONE 20 MG TAB PO SCH ×2 (16:00→17:00)
== END 2024-06-21 12:22 | disposition home or self-care (01) | DRG 189 ==
LOC: ED 15:03 → MS 19:07
PROVIDERS: Emergency Medicine; ADMIT Family Medicine; ATTEND Family Medicine
DX: J96.21 Acute and chronic respiratory failure with hypoxia (principal); J44.1 Chronic obstructive pulmonary disease with (acute) exacerbation; I10 Essential (primary) hypertension; K21.9 Gastro-esophageal reflux disease without esophagitis; F41.9 Anxiety disorder, unspecified; Z99.81 Dependence on supplemental oxygen; Z91.199 Patient's noncompliance with other medical treatment and regimen due to unspecified reason; Z87.891 Personal history of nicotine dependence; Z86.73 Personal history of transient ischemic attack (TIA), and cerebral infarction without residual deficits; Z90.710 Acquired absence of both cervix and uterus; Z90.49 Acquired absence of other specified parts of digestive tract; Z98.890 Other specified postprocedural states; Z88.0 Allergy status to penicillin; Z88.2 Allergy status to sulfonamides; Z88.1 Allergy status to other antibiotic agents; Z88.5 Allergy status to narcotic agent; Z88.8 Allergy status to other drugs, medicaments and biological substances; Z79.899 Other long term (current) drug therapy; Z79.82 Long term (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 of aspirin
CPT/HCPCS: 36415; 71045; 80053; 83735; 83880; 84100; 84484; 85025; 93005; 93010; 94640; 94667; 94668; 94762; 94799; A9270; J0456; J1650; J2919; J7060

== ENCOUNTER 2025-01-07 21:43 | Inpatient (IN) | payer OTHER ==
[~2025-01-07] VITALS: Ht 157.5 cm; Wt 77.4 kg
[~2025-01-07 21:43] MED LIST changes: +DULERA 100 MCG/13 GM; +DULERA 100 MCG/13 GM INH; +PREDNISONE10 MG PO; +SEVOFLURANE 250 ML BTL INH ONE; +VENTOLIN HFA18 GM INH
[2025-01-07] MEDS ORDERED: MORPHINE SULFATE 4 MG/ML VIAL IV ONE (22:00)
[2025-01-07] MEDS ORDERED: SODIUM CHLORIDE 0.9% 1,000 ML IV ONE (22:00)
[2025-01-07 22:44] LABS: ALT (SGPT) 12.0 U/L (14-59); AST (SGOT) 14.0 U/L (15-37); GLOMERULAR FILTRATION RATE,EST 74.0 mL/min (>60); PROTEIN, TOTAL 6.2 g/dL (6.4-8.2); UREA NITROGEN 10.0 mg/dL (7-18)
[2025-01-07 22:53] LABS: BLOOD/HGB, URINE TRACE-I (Negative); KETONE, URINE NEGATIVE (Negative); LEUK ESTERASE, URINE SMALL (negative); NITRITE, URINE NEGATIVE (negative)
[2025-01-07 23:00] LABS: EPITHELIAL CELLS, URINE SQUAMOUS 4+ /lpf (0-1+)
[2025-01-07 23:01] LABS: BACTERIA, URINE 1+ /hpf (negative); CASTS, URINE NONE SEEN \\lpf; CRYSTALS, URINE NONE SEEN (0-1+); REFLEX CULTURE, URINE No (No)
[2025-01-08] VITALS (14 sets, daily range): BP systolic 99–146; BP diastolic 60–100
[2025-01-08 00:23] LABS: BASOPHILS 0.8 % (0.1-1.2); EOSINOPHILS 3.6 % (0.7-5.8); LYMPHOCYTES 26.3 % (19.3-51.7); MCH 29.4 PG (25.6-32.2); MCHC 32.3 g/dL (32.2-35.5); MCV 91.2 fL (79.4-94.8); MONOCYTES 8.3 % (4.7-12.5); NEUTROPHILS 59.7 % (34.0-71.1); RBC 4.45 M/uL (3.93-5.22)
[2025-01-08] MEDS ORDERED: ALBUTEROL SULFATE 0.042% 1.25 MG/3 ML VIAL INH ONE (00:45)
[2025-01-08] MEDS ORDERED: CIPROFLOXACIN/DEXTROSE 400 MG/200 ML PIGGYBACK IV ONE (00:45)
[2025-01-08] MEDS ORDERED: ALBUTEROL SULFATE 0.083% 3 ML VIAL INH ONE (00:45)
[2025-01-08] MEDS ORDERED: fentaNYL citrate 100 MCG/2 ML VIAL ONE ×2 (01:21→03:35)
[2025-01-08] MEDS ORDERED: ROCURONIUM BROMIDE 50 MG/5 ML SYR ONE (01:21)
[2025-01-08] MEDS ORDERED: LIDOCAINE HCL 2% 5 ML SDV ONE (01:21)
[2025-01-08] MEDS ORDERED: DEXAMETHASONE SOD PHOS 4 MG/ML VIAL ONE (01:47)
[2025-01-08] MEDS ORDERED: ACETAMINOPHEN 1,000 MG/100 ML VIAL ONE (02:12)
[2025-01-08] MEDS ORDERED: Ropivacaine HCl 0.5% 30 ML VIAL ONE (02:12)
[2025-01-08] MEDS ORDERED: fentaNYL citrate 50 MCG/ML SDV IV PRN (02:15)
[2025-01-08] MEDS ORDERED: NALOXONE HCL 0.4 MG SYR IV PRN ×2 (02:15→04:00)
[2025-01-08] MEDS ORDERED: IBLOOD GLUCOSE TEST STRIP 1 EA TEST VI PRN ×2 (02:15→04:00)
[2025-01-08] MEDS ORDERED: SUGAMMADEX SODIUM 200 MG/2 ML ML ONE (02:17)
[2025-01-08] MEDS ORDERED: DOCUSATE SODIUM 250 MG CAP PO PRN (03:15)
[2025-01-08] MEDS ORDERED: HYDROCODONE/ACETA 7.5/325 TAB PO PRN (03:15)
[2025-01-08] MEDS ORDERED: ALBUTEROL 1 PUFF INH ONE (03:23)
--- NOTE | 2025-01-08 03:24 | NUR ---
PATIENT ARRIVED TO CCU RM 128 VIA HOSPITAL BED. THIS RN, CHILO, RN, NATURAL RESOURCES ENGINEER, RT, AND BRICK MASON AT BEDSIDE.
[2025-01-08] MEDS ORDERED: ALBUTEROL SULFATE 0.083% 3 ML VIAL INH PRN (03:45)
[2025-01-08] MEDS ORDERED: HYDROmorphone HCL 1 MG/ML SYR IV PRN (04:00)
[2025-01-08] MEDS ORDERED: ALBUTEROL/IPRATROPIUM 3 ML NEB INH SCH ×2 (04:00→20:00)
--- NOTE | 2025-01-08 04:11 | NUR ---
HANDOFF REPORT RECEIVED FROM LANDSCAPE MAINTENANCE INTERNSHIP ELICEO. ALL QUESTIONS ANSWERED. THIS RN AND OSBALDO WOO REMAIN IN ROOM.
--- NOTE | 2025-01-08 04:30 | NUR ---
PATIENT ASSESSMENT COMPLETE. PATIENT DROWSY AND DISORIENTED AT TIMES BUT EASILY REDIRECTABLE. PATIENT ON 4.5 L OXYMASK. SPO2 92%. VITAL SIGNS STABLE. ABDOMEN TENDER. BOWEL TONES ACTIVE. PATIENT DENIES NAUSEA AT THIS TIME. ABDOMINAL SURGICAL SITE DRESSING C/D/I. PATIENT RATES 5/10. ABDOMINAL BINDER IN PLACE. 20G L. AC IV SITE INTACT AND WNL. PUREWICK IN PLACE. SCDS IN PLACE. BED ALARM ON. THIS RN AND OSBALDO WOO REMAIN IN ROOM. ALBUTEROL INHALER PLACED IN ROOM LOCKBOX. PERSONAL BELONGINGS PLACED IN CLOSET. PATIENT HAS PERSONAL PHONE AT BEDSIDE. PATIENT STATES SHE LIVES HOME ALONE W/ HER TWO CATS. STATES SHE HAS A WALKER BUT DOES NOT USE IT.
--- NOTE | 2025-01-08 05:10 | NUR ---
PATIENT RESTING IN BED W/ EYES CLOSED. RR EVEN AND UNLABORED. PATIENT REMAINS ON 4.5 L OXYMASK, TOLERATING WELL. VITAL SIGNS STABLE. BED ALARM ON. CALL LIGHT IN REACH.
--- NOTE | 2025-01-08 06:40 | NUR ---
patient titrated down to 3L oxymask. patient tolerating well. no signs of acute distress noted. IVF infusing per emar, IV site WNL. patient has no needs at this time. bed alarm on. call light in reach.
--- NOTE | 2025-01-08 07:05 | NUR ---
flor buckner called and provided with update.
--- NOTE | 2025-01-08 07:24 | NUR ---
REPORT RECEIVED FROM ORTHODONTIC TECHNICIAN OSBALDO WOO AND ARIS.
[2025-01-08] MEDS ORDERED: PANTOPRAZOLE SODIUM 40 MG TABEC PO SCH (07:30)
--- NOTE | 2025-01-08 08:19 | NUR ---
PATIENT IS LYING IN BED WITH RESPIRATIONS ARE EVEN AND UNLABORED. RESPIRATORY THERAPIST IS IN THE ROOM AT THIS TIME.
[2025-01-08] MEDS ORDERED: ESCITALOPRAM OXALATE 10 MG TAB PO SCH (09:00)
[2025-01-08] MEDS ORDERED: CIPROFLOXACIN 500 MG TAB PO SCH (09:00)
--- NOTE | 2025-01-08 09:05 | NUR ---
01/08/25 0905 Meliza Castillo Aixa 0324- PT TAKEN TO CCU ROOM 128, SUPINE POSITION, NON REACTIVE TO STIMULUS. OPA IN PLACE, BREATHING EVEN AND NON LABORED, O2 AT 6L PER MASK. LR INFUSING TO LAC IV, IV WNL. ABD SOFT, NON DISTENDED, ABD BINDER IN PLACE. ALL MONITORS IN PLACE. 0331- PT REACTIVE TO STIMULUS, OPENS EYES AND TURNS SIDE TO SIDE. FOLLOWS COMMANDS TO REMOVE OPA. O2 LEFT IN PLACE. RT AT BEDSIDE, 2 ICU RNS. 0335- PT C/O 9/10 PAIN TO ABD. PT IS CONFUSED WHERE SHE IS, REORIENTED TO TIME AND PLACE. HEAD OF BED ELEVATED. 0350- RT SWITCHED PT TO OXYMASK AT 4L O2. PT MAINTAINING O2 SATS. RT TO GIVE SCHEDULED NEB. 0400- PT CONTINUES TO C/O 6/10 PAIN AFTER 100 MCG OF FENTANYL. DISCUSSED WITH JEIMY HOWELL, ORDERS FOR DILAUDID. 0411- PT PAIN IMPROVING AFTER DILAUDID, BED PLUGGED IN AND LOWEST POSITION. REPORT TO Patricia SUAZO RN AT BEDSIDE. LAC IV SALINE LOCKED. ALL MONITORS IN PLACE. NO SIGNS OF DISTRESS. CARE OF PT TURNED OVER AT THIS TIME.
--- NOTE | 2025-01-08 09:05 | NUR ---
PT IS LAYING IN BED WITH EYES OPEN. OXYMASK IS SECURELY ON FACE AT 3LPM. PT IS ALERT AND ORIENTED TIMES FOUR. PT REPORTS PAIN IS AT A 5/10 AND IS REQUESTING PAIN MEDICATION AT THIS TIME. FULL ASSESSMENT COMPLETE AND DOCUMENTED IN CHART. LUNGS WERE DIM THROUGHOUT, WITH WHEEZES AUSCULTATED IN THE WIL. S1, S2 AUSCULTATED. BOWEL TONES WERE ACTIVE IN ALL 4 QUADRANTS. DRESSING TO MIDLINE ABDOMINAL INCISION IS CLEAN, DRY AND INTACT. PT DENIED ANY NUMBMESS OR TINGLING. PT IS ON HEART MONITOR IN SINUS RYTHM. VS TAKEN AND DOCUMENTED IN CHART. ABDOMINAL BINDER IS IN PLACE. PT IS ON PUREWICK. PT STATED NO FURTHER NEEDS. CALL LIGHT AND PERSONAL BELONGINGS ARE WITHIN REACH.
--- NOTE | 2025-01-08 10:06 | NUR ---
PATIENT IS LYING IN BED WITH HOB ELEVATED. PATIENT WITH EYES CLOSED AND RESPIRATIONS ARE EVEN AND UNLABORED. OXYMASK IN PLACE. CALL LIGHT AND PERSONAL BELONGINGS ARE WITHIN REACH.
--- NOTE | 2025-01-08 10:35 | NUR ---
Spoke with Pepper. She lives in an apartment without steps. She lives alone and does not drive.She has a walker and a shower chair. Family, friends, and neighbors are her support people and will assist her if needed. She denies financial or safety concerns. Pt wants to go home on discharge. She denies any needs. She states she will no longer have her pcp in [place] as they no longer accept [facility]. Pt denies any needs.
--- NOTE | 2025-01-08 10:59 | NUR ---
UR CLINICAL REVIEW: MARCIA, MEETS INPT FOR CASTROENTEROLOGY GRG SURGICAL INTERVENTION NEEDED FOR INCARCERATED VENTRAL HERNIA UNABLE TO REDUCE IN ER, IV ANALGESICS, IV FLUIDS EO[facility]O INPT 01/08/2025 @ 0041 ORDER MATCHES REG AUTH PENDING, WILL SEND CLINICALS VIA RIGHTFAX DC TO HOME WHEN MEDICALLY READY DC 01/10/2025
--- NOTE | 2025-01-08 11:04 | NUR ---
NOTIFIED OF PATIENT WITH NO RECENT LABS THIS MORNING. MD STATED NO LABS FOR TODAY. THIS RN ASKED MD IF SHE WOULD LIKE PT WITH OT. MD STATED YES, ORDER PUT IN BY THIS RN. MD ALSO NOTIFIED OF PATIENT BEING ALLERGIC TO HYDROCONE AND HAVING NORCO ORDERED. MD GAVE TELEPHONE ORDER FOR OXYCODONE 5 MG Q4 HOURS PRN FOR PAIN. ORDERS PUT IN BY THIS RN. MD WITH NO FURTHER ORDERS OR QUESTIONS AT THIS TIME. CALL ENDED.
[2025-01-08] MEDS ORDERED: OXYCODONE HCL 5 MG TAB PO PRN (11:15)
--- NOTE | 2025-01-08 11:15 | NUR ---
PT LAYING IN BED WITH EYES CLOSED. HOB IS ELEVATED AND RR IS EVEN AND UNLABORED. CALL LIGHT AND PERSONAL BELONGINGS ARE WITHIN REACH.
--- NOTE | 2025-01-08 11:24 | NUR ---
PT NOT AVAILABLE FOR VISIT. PROVIDED PRAYER.
--- NOTE | 2025-01-08 12:06 | NUR ---
PT IS SITTING UP IN CHAIR. OXYMASK IS SECURELY ON FACE, AT 3L. RR EVEN AND UNLABORED. CALL LIGHT AND PERSONAL BELONGINGS ARE WITHIN REACH.
--- NOTE | 2025-01-08 13:21 | NUR ---
DR. ORTIZ ROUNDING ON PT AT THIS TIME. PT SITTING UP IN CHAIR. TWO VISITORS IN ROOM.
--- NOTE | 2025-01-08 13:52 | EKG ---
[facility] [address] [facility] [place] [address] Signed Normal sinus rhythm Anteroseptal infarct , age undetermined Abnormal ECG When compared with ECG of 18-JUN-2024 15:16, Anteroseptal infarct is now present Confirmed by ASYA SANTOS MD ([id number]) on 01/08/2025 1:52:38 PM Electronically Signed By: ASYA SANTOS 01/08/25 1352 PATIENT NAME: ALEX JIMENEZ Electrocardiogram DATE OF : 60 PHYSICIAN: ASYA SANTOS REPORT #: [id number] REPORT IS CONFIDENTIAL AND NOT TO BE RELEASED WITHOUT AUTHORIZATION
--- NOTE | 2025-01-08 13:59 | NUR ---
MED REC COMPLETE
[2025-01-08] MEDS ORDERED: LACTATED RINGER'S 1,000 ML IV SCH (14:00)
--- NOTE | 2025-01-08 14:32 | NUR ---
REPORT GIVEN TO ZAIN YOUNG RN AT THIS TIME.
--- NOTE | 2025-01-08 14:50 | NUR ---
PT TO ROOM 109 PER CHAIR FROM CCU. PT HAS CPOX ON, O2 AT 3L PER NC WITH SAT 90%. CALL LIGHT WITHIN REACH. FAMILY IN ROOM. PT HAS TARAH DIEGO CDI WITH BINDER ON.
[2025-01-08] MEDS ORDERED: ACETAMINOPHEN 500 MG TAB PO SCH (15:00)
--- NOTE | 2025-01-08 15:05 | NUR ---
PT TRANSFERRED BACK TO BED PER PT REQUEST WITH 2 PERSON ASSIST. SCDs ON, CPOX INTACT, CALL LIGHT WITHIN REACH, FAMILY IN ROOM. PT HAS NO OTHER REQUESTS AT THIS TIME.
--- NOTE | 2025-01-08 15:53 | NUR ---
Chart faxed to [facility] to request pcp. [facility].
--- NOTE | 2025-01-08 16:00 | NUR ---
PT RESTING IN BED WITH EYES CLOSED AND RESPIRATIONS EVEN AND UNLABORED. CALL LIGHT WITHIN REACH.
--- NOTE | 2025-01-08 17:18 | NUR ---
PT AROUSED TO LET HER KNOW THAT HER DINNER TRAY WAS AVAILABLE. PT STATES SHE IS NOT HUNGRY AT THIS TIME. PT ALSO STATES HER PAIN IS TOLERABLE AT THIS TIME. PT STATES SHE WANTS TO CONTINUE RESTING. CALL LIGHT WITHIN REACH.
--- NOTE | 2025-01-08 18:33 | NUR ---
PT RESTING IN BED, VS TAKEN. PT STATES PAIN IS 4/10 BUT TOLERABLE. CALL LIGHT WITHIN REACH. NO REQUESTS.
--- NOTE | 2025-01-08 18:57 | NUR ---
PT MEDICATED FOR ABD PAIN REQUESTED FOR PAIN 07/03. KNEE HIGH KEVYN HOSE APPLIED ORDERED. SCDS ON, ABD BINDER ON, CPOX ON WITH O2 SAT 91% ON 3L PER NC. PT HAS NO OTHER REQUESTS AT THIS TIME. CALL LIGHT WITHIN REACH.
--- NOTE | 2025-01-08 19:05 | NUR ---
REPORT RECEIVED FROM ZAIN ROBLERO. pt RESTING IN THE BED. ABD BINDER ON. BANDAGE CDI. IV ASSESSED, WNL. pt DENIES ANY OTHER NEEDS AT THIS TIME. CALL LIGHT WITHIN REACH.
--- NOTE | 2025-01-08 21:35 | NUR ---
ASSESSMENT AND VITAL SIGNS DONE. ABD BINDER IN PLACE. DRESSING CDI. pt C/O 07/03 PAIN. SCHEDULED MEDS ADMINISTERED. IV ASSESSED, WNL. pt DENIES ANY OTHER NEEDS AT THIS TIME. IVF INFUSING PER ORDER. CALL LIGHT WITHIN REACH.
--- NOTE | 2025-01-08 23:45 | NUR ---
pt IV BEEPING. IVF BAG EMPTY. NEW BAG OF IVF INFUSING. pt DENIES ANY NEEDS AT THIS TIME. CALL LIGHT WITHIN REACH.
[2025-01-09] VITALS (11 sets, daily range): BP systolic 108–137; BP diastolic 56–87
--- NOTE | 2025-01-09 01:10 | NUR ---
pt CALLED AND C/O 10/02 PAIN. PRN PAIN MEDS ADMINISTERED. pt DENIES ANY OTHER NEEDS AT THIS TIME. CALL LIGHT WITHIN REACH. WATER REFRESHED.
--- NOTE | 2025-01-09 01:30 | NUR ---
pt RESTING IN THE BED WITH EYES CLOSED. RR EVEN AND UNLABORED. CALL LIGHT WITHIN REACH.
--- NOTE | 2025-01-09 03:24 | NUR ---
pt RESTING IN THE BED WITH EYES CLOSED. RR EVEN AND UNLABORED. CALL LIGHT WITHIN REACH.
--- NOTE | 2025-01-09 07:20 | NUR ---
RECEIVED REPORT FROM OSBALDO CONNOLLY. PT LAYING IN BED WITH EYES CLOSED, APPEARS TO BE SLEEP TALKING. NO NEEDS AT THIS TIME, CALL LIGHT IN REACH, WHITEBOARD UPDATED.
--- NOTE | 2025-01-09 09:30 | NUR ---
INTO TO SEE PATIENT THIS MORNING. PATIENT COMPLAINS OF PAIN. PATIENT STATES "I AM PAINFUL AND THINK I NEED TO GO STAY SOMEWHERE FOR A WHILE. I WOULD LIKE TO GO TO [facility]." EDUCATED PATIENT ON SNF VS [facility]. PATIENT SAID SHE WOULD POTENTIALLY GO TO SNF. I DISCUSSED THERAPY WOULD HAVE TO RECCOMEND. PENDING THERAPY RECCOMENDATIONS.
--- NOTE | 2025-01-09 09:32 | NUR ---
PATIENT IN BED AT THIS TIME. TRUCK CAR AND BUS CLEANER CHARTED VITALS AND I&O'S. THIS TRUCK CAR AND BUS CLEANER AND TRUCK CAR AND BUS CLEANER UMAIR ASSISTED PATIENT TO BATHROOM AND THEN BACK TO BED. CALL LIGHT WITHIN REACH, NO FURTHER NEEDS.
--- NOTE | 2025-01-09 10:30 | NUR ---
PATIENT LAYING IN BED, REPORTING THAT THAT TYLENOL HAS HELPED WITH HER PAIN. OXYGEN DOWN TO 2L D/T SATS BEING ABOVE PERAMITERS. NO OTHER NEEDS AT THIS TIME, CALL LIGHT IN REACH.
--- NOTE | 2025-01-09 11:36 | NUR ---
PT CALLED THE NURSES STATION, UPON ARRIVING TO THE ROOM PT IS COUGHING AND O2 SATS AT 73. SAT PT UP IN BED AND TURNED O2 UP TO 4L. EDUCATED PATIENT ON BREATHING THROUGH HER NOSE. PT NO LONGER COUGHING AFTER THIS AND APPEARS THAT SHE HAS CATCHED HER BREATH. 02 SATS WITHIN PARAMETERS. PT THEN STATES HER ABDOMEN IS PAINFUL AFTER COUGHING. RATES THIS A "8/10," HYDRO GIVEN TO PATIENT, 02 DOWN TO 2L WITH SATS WITHIN PARAMETERS. NEW BAG OF IV FLUIDS, NO OTHER NEEDS AT THIS TIME, CALL LIGHT IN REACH.
--- NOTE | 2025-01-09 13:05 | NUR ---
TALKED WITH THERAPY. SNF RECCOMENDED. PATIENT AGREEABLE TO SNF. PATIENT CHOICE LETTER GIVEN. WBT FIRST CHOICE TO STAY CLOSE TO HOME. CHART FAXED
--- NOTE | 2025-01-09 13:22 | NUR ---
PATIENT IS IN HER CHAIR AT THIS TIME. OIL BURNER SERVICER AND INSTALLER CHARTED VITALS AND I&O'S, FAMILY IN ROOM, TOOK PATIENT ON A WALK AND BACK TO CHAIR. CALL LIGHT WITH IN REACH AND NOTHING ELSE NEEDED AT THIS TIME.
--- NOTE | 2025-01-09 13:46 | NUR ---
THIS RN AND FUNDS DEVELOPMENT DIRECTOR ASSISTED PATIENT UP WITH FWW 1PA WITH OXYGEN, AMBULATED INTO HALLWAYS A TOTAL OF ABOUT 20-25FT, PT STATES HER LEGS FELT LIKE JELLO AND DID NOT WANT TO GO ANY FURTHER. GAIT APPEARED STEADY, SATS DID DROP TO ABOUT 85% ON 3L W/ PORTABLE OXYGEN IN PLACE. PT BACK ON WALL OXYGEN, CPOX IN PLACE, SATS IMPROVED TO 91% ON 3L PER NC. PT STATES PAIN AFTER PAIN MEDS IMPROVED TO 4/10. ALL PT CARE NEEDS MET, CALL LIGHT WITHIN REACH. FAMILY REMAINS IN ROOM VISITING. PT LEFT SITTING UP IN CHAIR.
--- NOTE | 2025-01-09 14:55 | NUR ---
PATIENT IN BED AT THIS TIME. THIS REPAIRER GENERAL AND REPAIRER GENERAL UMAIR ASSISTED BED BERMAN UNDERNEATH PATIENT AND THEN PROVIDED PATIENT WITH PERICARE. BOTH CNAS GAVE PATIENT COMPLETE BEDBATH. CALL LIGHT WITHIN REACH, NO FURTHER NEEDS.
[2025-01-09] MEDS ORDERED: PHENAZOPYRIDINE HCL 100 MG TAB PO SCH (15:00)
--- NOTE | 2025-01-09 17:54 | NUR ---
PATIENT IN BED AT THIS TIME. LIBRARY CIRCULATION TECHNICIAN CHARTED VITALS AND I&O'S, PATIENT STATED SHE DID NOT NEED TO GO TO [place], RN NOTIFIED. CALL LIGHT WITHIN REACH, NO FURTHER NEEDS.
--- NOTE | 2025-01-09 19:05 | NUR ---
REPORT RECEIVED FROM ANDREW ROBLERO. pt RESTING IN THE BED. BOARD UPDATED. pt DENIES ANY OTHER NEEDS AT THIS TIME. CALL LIGHT WITHIN REACH.
--- NOTE | 2025-01-09 20:10 | NUR ---
pt CALL TO USE THE BR. pt 1PA TO THE BR WITH FWW. pt INCREASED TO 3.5LNC DUE TO INCREASED SOB WITH ACTIVITY. pt BACK TO BED. SCHEDULED MEDS ADMINISTERED. ABD DRESSING CDI. ABD BINDER IN PLACE. CPOX ON. IV ASSESSED, WNL. pt DENIES ANY OTHER NEEDS AT THIS TIME. CALL LIGHT WITHIN REACH.
--- NOTE | 2025-01-09 22:41 | NUR ---
THIS RN WENT IN RM DUE TO IV BEEPING. NEW BAG OF IVF INFUSING PER ORDER. pt RESTING IN THE BED WITH EYES CLOSED. RR EVEN AND UNLABORED. CALL LIGHT WITHIN REACH.
--- NOTE | 2025-01-09 23:46 | NUR ---
pt RESTING IN THE BED WITH EYES CLOSED. RR EVEN AND UNLABORED. CALL LIGHT WITHIN REACH.
[2025-01-10] VITALS (10 sets, daily range): BP systolic 102–169; BP diastolic 68–86
--- NOTE | 2025-01-10 01:09 | NUR ---
pt RESTING IN THE BED WITH EYES CLOSED. RR EVEN AND UNLABORED. CALL LIGHT WITHIN REACH.
--- NOTE | 2025-01-10 03:25 | NUR ---
pt RESTING IN THE BED WITH EYES CLOSED. RR EVEN AND UNLABORED. CALL LIGHT WITHIN REACH.
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
--- NOTE | 2025-01-10 05:39 | NUR ---
pt RESTING IN THE BED WITH EYES CLOSED. pt SATTING AT 94% ON 2LNC. NO NEEDS AT THIS TIME. CALL LIGHT WITHIN REACH.
--- NOTE | 2025-01-10 07:28 | NUR ---
RECIEVED REPORT FROM OSBALDO CONNOLLY. PT LAYING IN BED WITH EYES CLOSED, UNLABORED BREATHING. OXYGEN REDUCED TO 1L NASAL CANULA D/T COPD 88-92% O2 PARAMETERS. WHITEBOARD UPDATED, CALLLIGHT IN REACH.
[2025-01-10] MEDS ORDERED: BUDESONIDE 0.5 MG/2 ML VIAL INH SCH (08:00)
[2025-01-10] MEDS ORDERED: IPRATROPIUM BROMIDE 2.5 ML VIAL INH SCH (08:00)
[2025-01-10] MEDS ORDERED: ARFORMOTEROL TARTRATE 15 MCG/2 ML VIAL INH SCH (08:00)
--- NOTE | 2025-01-10 08:01 | NUR ---
PATIENT IN BED AT THIS TIME. CRYPTOGRAPHY TEACHER CHARTED HOURLY ROUNDS, RT IN AT THIS TIME. CALL LIGHT WITHIN REACH, NO FURTHER NEEDS.
--- NOTE | 2025-01-10 10:17 | NUR ---
PATIENT IN BED AT THIS TIME. DIRECTOR OF RELIGIOUS LIFE CHARTED VITALS AND I&O'S. CALL LIGHT WITHIN REACH, NO FURTHER NEEEDS.
--- NOTE | 2025-01-10 10:37 | NUR ---
PHYSICAL THERAPY WALKING PT AROUND KING ON OXYGEN, MACHINE HOSE CUTTER WALKING BEHIND PT WITH WHEELCHAIR.
--- NOTE | 2025-01-10 11:29 | NUR ---
PT SITTING UP IN CHAIR, EYES CLOSED, UNLABORED BREATHING. NO OTHER NEEDS AT THIS TIME, CALL LIGHT IN REACH.
--- NOTE | 2025-01-10 12:10 | NUR ---
PT REQUESTING TO GET BACK IN BED, EDUCATED PT ON STAYING UP MUCH POSSIBLE. NO OTHER NEEDS AT THIS TIME, CALL LIGHT IN REACH.
--- NOTE | 2025-01-10 14:00 | NUR ---
PATIENT IN CHAIR AT THIS TIME. MARKET DEVELOPMENT ANALYST CHARTED VITALS AND I&O'S. CALL LIGHT WITHIN REACH, NO FURTHER NEEDS.
--- NOTE | 2025-01-10 14:19 | NUR ---
RT AT BEDSIDE PROVIDING BREATHING TREATMENT, NO NEEDS REPORTED, CALL LIGHT IN REACH.
--- NOTE | 2025-01-10 15:20 | NUR ---
PT UP TO CHAIR REFUSING HER SCHEDULED TYLENOL AT THIS TIME. O2 LOWERED TO 1L PER COPD PARAMETERS OF 88-92%. PT REPORTS SHE IS NOT SOB OR IN PAIN AT THIS TIME. PT REPORTS WANTING TO REST. CALL LIGHT IN REACH.
--- NOTE | 2025-01-10 16:40 | NUR ---
ASSISTED PT IN REPOSITIONING IN CHAIR. SET UP DINNER TRAY FOR PATIENT. PT REPORTS NO PAIN OR SOB, NO OTHER NEEDS AT THIS TIME, CALL LIGHT IN REACH.
--- NOTE | 2025-01-10 17:36 | NUR ---
PT ASSISTED TO BATHROOM WITH FWW, PT REPORTS "FEELING A PANIC ATTACK" WHILE SITTING ON TOILET. TALKED THROUGH REPORTED "PANIC ATTACK" BY REMINDING PT TO FOCUS ON HER BREATHING AND REMINDING HER THAT HER OXYGEN WAS WITHIN RANGE. PT ASSISTED WITH FWW BACK TO BED. PT REPORTS FEELING ANOTHER "PANIC ATTACK" AND I TALKED THROUGH PT AGAIN UNTIL SHE REPORTED SHE FELT BETTER. PT CURRENTLY ON 1L NC AT 92%, PAIN MED GIVEN D/T REPORTED ABDOMEN PAIN WHEN AMBULATING. FOREST MANAGEMENT TEACHER GIVEN TO PATIENT FOR PHONE, NO OTHER NEEDS AT THIS TIME, CALL LIGHT IN REACH.
--- NOTE | 2025-01-10 19:23 | NUR ---
REPORT RECEIVED FROM OFFGOING RN. PT ROUNDING. PT RESTING IN BED WITH EYES CLOSED. EXPIRATORY WHEEZES AUDIBLE. SA02 94%. PT DOES NOT WAKE WHILE CENTER MEDICAL DIRECTOR AT BEDSIDE. CALL LIGHT IN REACH.
--- NOTE | 2025-01-10 20:49 | NUR ---
ALEX WOULD BENEFIT FROM A HOME RESPIRATORY REGIMEN OF BROVANA BID, PULMICORT BID, ATROVENT BID, AND ALBUTEROL Q2 PRN. SHE STATES THAT SHE DOES HAVE A HOME NEBULIZER.
--- NOTE | 2025-01-10 21:24 | NUR ---
PT ASSESSMENT COMPLETE. PT RESTING IN BED, JUST FINISHED A NEB TREATMENT. EXPIRATORY WHEEZES AUSCULATED IN ALL LUNG BARRIOS, DO NOT CLEAR WITH COUGH. O2 PRESENT @ 2LPM VIA NC. SAO2 94%, CPOX PRESENT AT BEDSIDE. PT DENIES FEELING SOB. MIDLINE INCISION TO ABD COVERED WITH GAUZE AND ABD BINDER, REMOVED. ABD IS WARM, GENERALIZED REDNESS NOTED TO ABD. BT'S ACTIVE. ABD TENDER TO PALPATION. NEW GAUZE PLACED AND ABD BINDER REPLACED. KEVYN HOSE PRESENT TO BLE. IV FLUSHED WITH 10 ML NS. IV PATENT, WNL, NO BLOOD RETURN NOTED. PT REPORTS FEELING ANXIOUS, PRN ADMINISTERED, SEE EMAR. PT STATES THAT PAIN IS AT A 5/10, STATES THIS IS TOLERABLE. SCHEDULED MEDS ADMINISTERED. POC FOR THIS SHIFT DISCUSSED. PT DENIES QUESTIONS OR CONCERNS. CALL LIGHT IN REACH.
--- NOTE | 2025-01-10 22:36 | NUR ---
pt rounding. pt resting in bed with eyes closed. respirations even and unlabored. sa02, 98%, hr 80. pt does not wake while scenario writer at doorway. call light in reach.
--- NOTE | 2025-01-10 23:48 | NUR ---
PT ROUNDING. PT RESTING IN BED WITH EYES CLOSED. RESPIRATIONS EVEN AND UNLABORED. SA02 97%. 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 CALL LIGHT IN REACH.
[2025-01-11] VITALS (9 sets, daily range): BP systolic 123–179; BP diastolic 72–91
--- NOTE | 2025-01-11 01:31 | NUR ---
PT ROUNDING. PT RESTING IN BED WITH EYES CLOSED, RESPIRATIONS EVEN AND UNALBORED. SA02 97%, HR 66. PT DOES NOT WAKE WHILE TRANSMISSION SUPERINTENDENT IN ROOM. CALL LIGHT IN REACH.
--- NOTE | 2025-01-11 02:36 | NUR ---
PT RESTING IN BED WITH EYES CLOSED. RESPIRATIONS EVEN AND UNLABORED. PT APPEARS TO BE SLEEPING. SA02 96%, HR 67. PT DOES NOT WAKE WHILE HEAD BUTLER IN ROOM. CALL LIGHT IN REACH.
--- NOTE | 2025-01-11 04:18 | NUR ---
PT ROUNDING. PT RESTING IN BED WITH EYES CLOSED. RESPIRATIONS EVEN AND UNLABORED. SA02 96, HR 64. PT DOES NOT WAKE WHILE BOILING TUB OPERATOR IN ROOM. CALL LIGHT IN REACH.
--- NOTE | 2025-01-11 04:58 | NUR ---
PT ASSESSMENT COMPLETE. PT WAKES EASILY TO VOICE AND TOUCH. REMAINS DROWSY THROUHGOUT ASSESSMENT. PT STATES THAT SHE SLEPT VERY WELL. DENIES PAIN, NAUSEA, OR SOB. PT STATES THAT SHE DOES NOT FEEL ANXIOUS AT THIS TIME. LLL WITH EXPIRATORY WHEEZE. ALL OTHER LUNG SOUNDS CLEAR ON AUSCULTATION. MIDLINE INCISION WITH EDGES WELL APPROXIMATED. NO DRAINAGE NOTED. GENERALIZED REDNESS TO ABD. BT'S ACTIVE. PT REPORTS PASSING FLATUS THROUGHOUT THE NIGHT. ABD BINDER REPLACED. PT STATES THAT SHE DOES NOT NEED TO VOID. ENCOURAGED PT TO GET UP TO USE THE BATHROOM, PT DECLINES. STATES THAT SHE WILL GET UP AND GO WHEN SHE IS "MORE AWAKE". PT DENIES FURTHER NEEDS AT THIS TIME. CALL LIGHT IN REACH.
--- NOTE | 2025-01-11 06:55 | NUR ---
FEEDER ASSOCIATE TO ROOM FOR SCHEDULED MEDICATION ADMIN. PT UP TO BATHROOM, BEGINS BREATHING RAPIDLY WHILE ON TOILET. PT STATES THAT SHE IS FEARFUL AND THAT'S WHAT CAUSES HER INCREASED RESPIRATORY RATE. SHE CANNOT IDENTIFY A SOURCE OF FEAR. PT WAS ABLE TO FOCUS ON HER BREATHING, FEEDER ASSOCIATE PROVIDES REASSURANCE. PT BACK TO BED, AGAIN BREATHING RAPIDLY. PT SAT ON EDGE OF PT AND FOCUSED ON BREATHING AGAIN. SA02 88-90 ON 2 LPM. PT RATING PAIN 9/10. PRN ADMINISTERED. SEE EMAR. PT ABLE TO LAY BACK IN BED WITH ASSISTANCE. AGREES THAT SHE IS FEELING BETTER, BUT STATES THAT SHE IS "CRANKY" WITH A LAUGH. PT INSTRUCTED TO CALL FOR NEEDS. SHE STATES AGREEMENT.
--- NOTE | 2025-01-11 07:25 | NUR ---
RECIEVED REPORT FROM OSBALDO AREVALO. PT SITTING UP IN BED, STATES NO CURRENT NEEDS, CALL LIGHT WITHIN REACH.
[2025-01-11 10:16] LABS: BASOPHILS 0.6 % (0.1-1.2); EOSINOPHILS 3.7 % (0.7-5.8); LYMPHOCYTES 14.2 % (19.3-51.7); MCH 29.9 PG (25.6-32.2); MCHC 31.9 g/dL (32.2-35.5); MCV 93.5 fL (79.4-94.8); MONOCYTES 8.8 % (4.7-12.5); NEUTROPHILS 72.3 % (34.0-71.1); RBC 3.85 M/uL (3.93-5.22)
--- NOTE | 2025-01-11 12:32 | NUR ---
PT UP TO CHAIR EATING LUNCH, STATES NO CURRENT NEEDS. CALL LIGHT WITHIN REACH.
--- NOTE | 2025-01-11 13:40 | NUR ---
INTO ROOM TO ANSWER CALL LIGHT, PT NEEDING TO USE BATHROOM. PT AMBULATED TO BATHROOM WITH FWW VIA SBA. PT REPORTS FEELING SHOB, OXYGEN MAINTAINING ABOVE 88% ON CHRONIC 2L. PT NOW BACK IN BED. WATER REFRESHED. CALL LIGHT IN REACH
--- NOTE | 2025-01-11 16:32 | NUR ---
PT UP FOR WALK IN HALLWAY WITH THIS RN. PT TAKES REST X2 ON WALK, O2 SATURATION STABLE FOR LENGTH OF WALK. PT ABLE TO INDEPENDENTLY GET INTO BED. CPOX IN PLACE, 2L O2 VIA NC IN PLACE. PT STATES NO FURTHER NEEDS AT THIS TIME, CALL LIGHT WITHIN REACH.
--- NOTE | 2025-01-11 18:54 | NUR ---
PT USES CALL LIGHT, THIS RN TO BEDSIDE. PT STATES SHE CONTINUES TO FEEL NAUSEAS AND WARM. TEMPERATURE TAKEN, RESULT WNL. COOL CLOTH PLACED ON PT FOREHEAD, BEDSIDE FAN GIVEN TO PT AND POSITIONED IN COMFORTABLE PLACE PER PT. PT STATES NO FURTHER NEEDS AT THIS TIME, CALL LIGHT WITHIN REACH.
--- NOTE | 2025-01-11 19:35 | NUR ---
REPORT RECEIVED FROM OFFGOING RN. PT ROUNDING, RT AT BEDSIDE. PT BEGAN VOMITTING I ENTERED THE ROOM. HOB ELEVATED. WET WASHCLOTH PROVIDED. PT HAD 100 ML OF BROWN EMESIS. SHE STATES SHE BELIEVES THE NAUESA WAS CAUSED BY A CHOCOLATE ENSURE SHE HAD EARLIER. AFTER EMESIS PT STATES THAT NAUSEA IS RELIEVED. RT TO FINISH TREATMENT. PT INSTRUCTED TO CALL FOR NEEDS. CALL LIGHT IN REACH.
--- NOTE | 2025-01-11 21:30 | NUR ---
PT ASSESSMENT COMPLETE. PT DENIES SOB. REPORTS ONGOING NAUSEA AND PAIN. PT RATES PAIN 7/10 TO ABD. PT ALSO CONTINUES TO ENDORSE ON GOING ANXIETY. PT STATES THAT SHE IS ALSO FEELING DEPRESSED. STATES THAT SHE HAS A HISTORY OF DEPRESSION. PRNS ADMINISTERED, SEE EMAR. LUNG SOUNDS WITH EXPIRATORY WHEEZE THROUGHOUT, DO NOT CLEAR WITH COUGH. O2 @ 2LPM VIA NC. CPOX AT BEDSIDE, SAO2 92%. ABD BINDER OVER MIDLINE INCISION REMOVED FOR ASSESSMENT. BT'S HYPROACTIVE. ABD SLIGHTLY TENDER TO PALPATION. PT STATES THAT TENDERNESS HAS IMPROVED. GENERALIZED REDNESS CONTINUES TO ABD. ABD BINDER REPLACED. PT REPORTS OCCASIONAL FLATUS, DENIES BM OR URGE TO HAVE BM. IV FLUSHED WITH 10 ML NS. IV PATENT. NO BLOOD RETURN NOTED. THERAPUETIC COMMUNICATION PROVIDED REGARDING ANXIETY AND DEPRESSION. PT DENIES FURTHER NEEDS, QUESTIONS, OR CONCERNS. CALL LIGHT IN REACH.
--- NOTE | 2025-01-11 21:55 | NUR ---
PT ROUNDING. PT IN BED WITH HOB ELEVATED. REPORTS ON GOING NAUSEA BUT IS UNSURE WHEN ASKED WHETHER IT HAS IMPROVED. SHE STATES PAIN IS IMPROVED. PT REPORTS THAT SHE IS AFRAID TO GO TO SLEEP BECAUSE SHE MIGHT THROW UP AGAIN. ENCOURAGED PT TO REST. PT STATES AGREEMENT. DENIES FURTHER NEEDS AT THIS TIME. CALL LIGHT IN REACH.
--- NOTE | 2025-01-11 22:21 | NUR ---
PT UTILIZES CALL LIGHT, REQUESTS TO USE THE BSC. STATES THAT SHE FEELS LIKE SHE NEEDS TO HAVE A BM. PT UP TO BSC WITH 1PA AND FWW. ONCE ON THE COMMODE PT HAD APPROXIMATELY 50 ML BROWN COLORED EMESIS. REPORTS ONGOING NAUSEA. NOTIFIED. NEW ORDER RECEIVED. PT STATES THAT SHE WOULD LIKE TO WAIT TO TAKE FURTHER ANTIEMETIC. PT ASSISTED BACK TO BED WITH 1 PA AND FWW. TOLERATED WELL. SA02 89%. PT DENIES FURTHER NEEDS AT THIS TIME. CALL LIGHT IN REACH.
[2025-01-11] MEDS ORDERED: PROCHLORPERAZINE EDISYLATE 10 MG/2 ML VIAL IV PRN (22:45)
--- NOTE | 2025-01-11 23:23 | NUR ---
PT ROUNDING. PT RESTING IN BED WITH EYES CLOSED. RESPIRATIONS EVEN AND UNLABORED. PT APPEARS TO BE SLEEPING. DOES NOT WAKE WHILE MECHANIC DRIVER AT DOORWAY. SAO2 92%, HR 80. CALL LIGHT IN REACH.
[2025-01-12] VITALS (9 sets, daily range): BP systolic 133–174; BP diastolic 63–95
--- NOTE | 2025-01-12 00:40 | NUR ---
PT ROUNDING. PT RESTING IN BED WITH EYES CLOSED. RESPIRATIONS EVEN AND UNLABORED. SA02 91%. PT DOES NOT WAKE WHILE MINE MOTOR OPERATOR AT DOORWAY, CALL LIGHT IN REACH.
--- NOTE | 2025-01-12 01:23 | NUR ---
PT UTILIZES CALL LIGHT, STATES THAT SHE IS NAUSEATED. PRN ADMINISTERED, SEE EMAR. AFTER PRN ADMINISTRATION PT STATES THAT NAUSEA AND PAIN ARE IMPROVED. PT BOOSTED UP IN BED. DENIES FURTHER NEEDS AT THIS TIME. CALL LIGHT IN REACH.
--- NOTE | 2025-01-12 02:26 | NUR ---
PT ROUNDING. PT RESTING IN BED ON BACK, EYES CLOSED. RESPIRATIONS EVEN AND UNLABORED. SAO2 94%, HR 70. PT DOES NOT WAKE WHILE AUTOMATION AND CONTROLS MANAGER AT DOORWAY. CALL LIGHT IN REACH.
--- NOTE | 2025-01-12 03:28 | NUR ---
PT ROUNDING. PT SEEN FROM DOORWAY ADJUSTING O2. PT HEARD SAYING "OH MAN". ASSISTANT TRACK AND FIELD COACH ENTERS ROOM, ASKED PT IF SHE WAS DOING OK. PT STATES THAT SHE WAS ASLEEP. DENIES NEEDS AT THIS TIME. CALL LIGHT IN REACH.
--- NOTE | 2025-01-12 04:59 | NUR ---
PT UTILIZES CALL LIGHT, REQUESTS TO USE THE BSC. PT UP AND BACK TO BED WITH 1 PA AND FWW. TOLERATED WELL. PT ASSESSMENT COMPLETE. PT REPORTS PAIN AND NAUSEA HAVE IMPROVED. DENIES SOB. SAO2 90'S. O2 @ 2 LPM. EXPIRATORY WHEEZES AUSCULTATED IN ALL LUNG BARRIOS, DO NOT CLEAR WITH COUGH. MIDLINE INCISION WITH EDGES WELL APPROXIMATED. NO DRAINAGE NOTED. GENERALIZED REDNESS TO ABD IMPROVED FROM LAST ASSESSMENT. BT'S HYPOACTIVE. ABD REMAINS FIRM TO PALPATION, PT STATES NORMAL FOR HER. STATES THAT ABD TENDERNESS TO TOUCH IS IMPROVED. ABD BINDER IN PLACE. VS OBTAINED, WNL. PT DENIES FURTHER NEEDS AT THIS TIME. CALL LIGHT IN REACH.
--- NOTE | 2025-01-12 06:27 | NUR ---
PT ROUNDING. PT RESTING IN BED AWAKE. PT REPORTS THAT NAUSEA IS INCREASING AGAIN. PT STATES THAT ZOFRAN MADE HER NAUSEA WORSE EARKEVIN, REQUESTS COMPAZINE. PRN AND SCEDULED MEDS ADMINISTERED. ICE WATER REFILLED. PT DENIES FURTHER NEEDS. CALL LIGHT IN REACH.
--- NOTE | 2025-01-12 07:08 | NUR ---
Pt report received from OSBALDO Alberto. Pt is resting supine in bed, HOB slightly elevated, eyes closed, breathing is regular, even, and non-labored. White board updated. Side rails up x4, call light in reach.
--- NOTE | 2025-01-12 07:53 | NUR ---
FAXED UPDATES TO [facility].
--- NOTE | 2025-01-12 09:11 | NUR ---
In with pt for medication administration, VS, and morning assessment. Upon initial entry in to the room, medical instrument cable fabricator, Alexandra, in with pt. Pt is sitting up at edge of bed, breakfast tray in room but not in front of patient as she states "nothing looks or sounds good". Encouraged pt to try a piece of dry toast, which she was agreeable to. Pt states that she "feels full" and is having some nausea. Administered 4mg ondansetron per emar, extremely slow IVP as pt states nolan made her throw up the last time she had it, and pt had no issues with this dose administration. Pt given her a.m. PO meds with sips of water. BT are either absent or extremely hypoactive as I listened for several minutes throughout. Pt reports her pain in her incision area is 5 out of 10 at this time and she was medicated with scheduled tylenol per emar. VS stable. Pt returned to supine position in bed with HOB elevated for comfort, SPO2 at 88% on 2LPM via NC. Pt agrees that staff will return in one hour to assist her to ambulate in the hallway. Discussed possible reasons for her nausea (she has not eaten anything since before surgery, she has not had a BM since before admission, and she is not ambulating as often as she probably should, etc.) and encouraged pt to help herself by working with staff to help her. Pt verbalized understanding. Side rails up x3, call light in reach, bedside table and personal belongings in reach. TV on.
--- NOTE | 2025-01-12 09:32 | NUR ---
INTO SEE PATIENT. PATIENT UP IN BED. PRIMARY NURSE AT BEDSIDE. LET PATIENT KNOW FACILITY IS WORKING ON AUTH FOR WHEN PATIENT IS MEDICALLY CLEARED FOR D/C.
--- NOTE | 2025-01-12 10:05 | NUR ---
In with pt for ambulation. Pt is resting supine in bed with HOB elevated. Pt able to transfer to bedside with feet dangling with minimal assist, stands with FWW unassisted. Pt ambulated short round of floor, pausing to sit in wheelchair twice, but SPO2 remained between 88 and 92 on 3LPM while ambulating. Pt reports she is having bouts of heartburn. Pt back to room, up in chair. Call light, bedside table, personal belongings placed in reach.
--- NOTE | 2025-01-12 10:31 | NUR ---
IN TO ASSIST RN WITH AMBULATING PATIENT. PATIENT NOW IN CHAIR. LINENS CHANGED. CALL LIGHT IN REACH. NO FURTHER NEEDS AT THIS TIME.
--- NOTE | 2025-01-12 10:45 | NUR ---
Dr. Madrigal in with pt at this time, who is up in the chair with BLE elevated. Verbal order obtained from Dr. Mooney for Miralax, 1 pk by mouth in 240ml water BID, and Tums for heartburn PRN. Repeated order back for clarification.
[2025-01-12] MEDS ORDERED: POLYETHYLENE GLYCOL 3350 1 PACKET PO SCH (10:56)
[2025-01-12] MEDS ORDERED: CALCIUM CARBONATE 500 MG CHEW PO SCH (10:56)
--- NOTE | 2025-01-12 13:50 | NUR ---
Dr. Montenegroacz in with pt at this time to update her on her U/S results. She was asked if she is interested in receiving a flu shot during her stay, to which the pt replied "no".
--- NOTE | 2025-01-12 14:00 | NUR ---
OT in with pt at this time
--- NOTE | 2025-01-12 14:40 | NUR ---
PATIENT SITTING IN CHAIR AT THIS TIME. VITALS AND I&O'S DONE AND CHARTED. CALL LIGHT IN REACH. NO FURTHER NEEDS AT THIS TIME.
--- NOTE | 2025-01-12 14:52 | NUR ---
PT working with patient at this time
--- NOTE | 2025-01-12 15:43 | NUR ---
In with pt for medication administration and assessment. Pt has faint BT auscultated in RLQ at this time. Pt declines PO Tylenol stating she feels too full to take anything by mouth at this time and denies any pain. She declines an ice or hot pack for her abdomen and states her nausea is under control currently. Advised pt that we will ambulate her around 4pm and again around 6pm, and pt agrees with this plan. She is currently resting in the recliner, BLE elevated.
--- NOTE | 2025-01-12 17:55 | NUR ---
In with pt in response to call light. Pt needs to use the toilet. SBA with L&TM as pt ambulated into bathroom using FWW to void. Pt used call light when finished and was ambulating to the bathroom door with FWW when I arrived back in the room. Pt voided 150ml ciro colored urine. Pt ambulated down to the second nurse's station and back, stopping twice to rest. Once pt was back to her room, she was assisted back in to bed. She seems to need O2 via NC at 3LPM when ambulating or with activity as her sats drop below 88%, as low as 83%, but she recovers quickly. VS obtained at this time. Pt has had 150 urine out and 150 PO fluids in over the last 4 hours.
--- NOTE | 2025-01-12 18:10 | NUR ---
IN TO ASSIST RN WITH AMBULATING PATIENT IN HALLWAY DOWN TO END OF SECOND NURSES STATION AND BACK TO ROOM, 1PA FWW. PATIENT NOW IN BED RESTING. VITALS AND I&O'S DONE AND CHARTED. CALL LIGHT IN REACH. NO FURTHER NEEDS AT THIS TIME.
--- NOTE | 2025-01-12 19:05 | NUR ---
REPORT RECEIVED FROM KATARINA ROBLERO. pt RESTING IN THE BED WITH EYES CLOSED. CPOX ON. BOARD UPDATED. NO OTHER NEEDS AT THIS TIME. CALL LIGHT WITHIN REACH.
--- NOTE | 2025-01-12 20:20 | NUR ---
ASSESSMENT AND VITAL SIGNS DONE. SCHEDULED MEDS ADMINISTERED. pt INCREASED BACK TO 3L OXYMASK DUE TO pt MOVING IN THE BED AND STARTING TO BREATH THROUGH HER MOUTH. WATER REFRESHED. IV ASSESSED, WNL. MIDLINE INCISION INTACT. ABD BINDER ON. CPOX ON. pt DNEIES ANY OTHER NEEDS AT THIS TIME. CALL LIGHT WITHIN REACH.
--- NOTE | 2025-01-12 21:35 | NUR ---
pt CALLED AND C/O 11/02 PAIN. PRN PAIN MEDS ADMINISTERED. pt DENIES ANY OTHER NEEDS AT THIS TIME. CALL LIGHT WITHIN REACH.
--- NOTE | 2025-01-12 22:40 | NUR ---
PATIENT UP TO THE BATHROOM SBA USING WALKER TO VOID UNMEASURED AND SMALL BM. PATIENT IS BACK IN BED. NO FURTHER NEEDS AT THIS TIME.
--- NOTE | 2025-01-12 23:34 | NUR ---
PT REPORTS ANXIETY, ANXIETY MED PROVIDED. PT RESTING IN BED, EYES CLOSED. PT STATES NO TOHER NEEDS AT THIS TIME. CALL LIGHT IN REACH.
[2025-01-13] VITALS (12 sets, daily range): BP systolic 128–177; BP diastolic 63–97
--- NOTE | 2025-01-13 01:58 | NUR ---
pt RESTING IN THE BED WITH EYES CLOSED. RR EVEN AND UNLABORED. CALL LIGHT WITHIN REACH.
--- NOTE | 2025-01-13 03:50 | NUR ---
pt RESTING IN THE BED WITH EYES CLOSED. RR EVEN AND UNLABORED. CALL LIGHT WITHIN REACH.
--- NOTE | 2025-01-13 06:12 | NUR ---
ASSESSMENT AND VITAL SIGNS DONE. SCHEDULED MEDS ADMINISTERED. pt DENIES ANY NEEDS AT THIS TIME. INCISION CDI. CALL LIGHT WITHIN REACH.
--- NOTE | 2025-01-13 07:40 | NUR ---
REPORT RECEIVED FROM PENNIE ROBLERO. PATIENT IN BED, EYES CLOSED, CHEST RISE EVEN AND UNLABORED. CALL LIGHT AND PERSONAL BELONGINGS IN REACH.
--- NOTE | 2025-01-13 09:14 | NUR ---
PATIENT IN BED, OT ENTERS ROOM WELL. PATIENT REFUSED OT AT THIS TIME. ASSESMENT COMPLETED. SCHEDULED MEDICATIONS ADMINISTERED. CALL LIGHT AND PERSONAL BELONGINGS IN REACH. PATIENT REFUSES TO SIT UP IN CHAIR AT THIS TIME. PATIENT IN BED, CALL LIGHT AND BELONGINGS IN REACH. RT AT BEDSIDE.
--- NOTE | 2025-01-13 09:40 | NUR ---
PATIENT IN BED. PATIENT REPORTS NAUSEA. PATIENT REFUSES PRN ZOFRAN REPORTS IT "DOES NOT WORK" PATIENT REQUESTING COMPAZINE. PATIENT EDUCATION PROVIDED THAT ORDER STATES TO TRY ZOFRAN AND ADMINISTER SECOND CHOICE MEDICATION IF SYMPTOMS DO NOT RESOLVE. PATIENT REFUSES PRN NAUSEA MEDICATION. OFFERED PATIENT NON-PHARMACOLOGIC MEASURES LIKE CRACKERS. PATIENT REFUSES. PATIENT REFUSES TO AMBULATE TO CHAIR, IN ROOM, OR IN HALLS AT THIS TIME.
--- NOTE | 2025-01-13 09:52 | NUR ---
ALERT AND ORIENTED IN BED. INFORMED STILL AWAITING INSURANCE AUTHORIZATION FOR SNF. WILL UPDATE HER WHEN MORE INFORMATION IS AVAILABLE. PLAN TO DC TO FACILITY IN WHEELCHAIR VAN.
--- NOTE | 2025-01-13 10:31 | NUR ---
PATIENT SITTING AT SIDE OF BED, CALL LIGHT AND PERSONAL BELONGINGS IN REACH.
--- NOTE | 2025-01-13 11:29 | NUR ---
PATIENT IN BED, SPEAKING ON ROOM PHONE. BELONGINGS AND CALL LIGHT IN REACH.
--- NOTE | 2025-01-13 12:00 | NUR ---
PATIENT AMBULATING [place] WITH PT
--- NOTE | 2025-01-13 13:35 | NUR ---
PATIENT SITTING UPRIGHT IN CHAIR. DAUGHTER AT [facility]. PRN NAUSEA MEDICATION ADMINISTERED PER PATIENT REQUEST. LUNCH AT BEDSIDE. CALL LIGHT AND PERSONAL BELONGINGS IN REACH OF PATIENT.
--- NOTE | 2025-01-13 14:07 | NUR ---
NISHA AT [facility] STATES THEY ARE STILL AWAITING AUTH FOR SNF FROM [facility]. POTENTIALLY ABLE TO ACCEPT PATIENT TOMORROW FOR SNF, IF AUTHORIZATION IS RECEIVED. PATIENT UPDATED.
--- NOTE | 2025-01-13 14:33 | NUR ---
PATIENT REQUESTS TO RETURN TO BED. PATIENT EDUCATION PROVIDED, ENCOURAGED PATIENT TO BE UP IN CHAIR AND TO AMBULATE MUCH TOLERATED. PATIENT VERBALIZED UNDERSTANDING. PATIENT CONTINUES TO REQUEST TO RETURN TO BED. ASSISTED PATIENT TO BED PER PATIENT REQUEST. SCHEDULED MEDICATIONS ADMINISTERED. PATIENT'S DAUGHTER AT BEDSIDE AND HELPING HER WITH BED BATH AT PATIENT REQUEST. PATIENT DENIES FURTHER CONCERNS AT THIS TIME.
--- NOTE | 2025-01-13 15:36 | NUR ---
PATIENT IN BED, SURGICAL MD TELLEZ AT BEDSIDE. VERBAL ORDER RECEIVED TO ADVANCE DIET TOLERATED STARTING WITH SOFT DIET. NO FURTHER ORDERS AT THIS TIME. CALL LIGHT AND PERSONAL BELONGINGS IN REACH OF PATIENT.
--- NOTE | 2025-01-13 16:25 | NUR ---
PATIENT IN BED, EYES CLOSED, CHEST RISE EVEN AND UNLABORED. CALL LIGHT AND PERSONAL BELONGINGS IN REACH OF PATIENT.
--- NOTE | 2025-01-13 17:24 | NUR ---
PATIENT IN BED, DINNER AT BEDSIDE. PATIENT REPORTS "FEELING GASSY". PATIENT REPORTS SHE IS PASSING GAS AND HAVING SMALL BOWEL MOVEMENTS. BOWEL SOUNDS HYPOACTIVE AND UNCHANGED. PATIENT DENIES FURTHER CONCERNS. CALL LIGHT AND PERSONAL BELONGINGS IN REACH OF PATIENT. FAMILY AT BEDSIDE.
--- NOTE | 2025-01-13 18:44 | NUR ---
PATIENT IN BED, WASH WORKER AT BEDSIDE. VITAL SIGNS COMPLETED. CALL LIGHT AND PERSONAL BELONGINGS IN REACH OF PATIENT. FAMILY AT BEDSIDE.
--- NOTE | 2025-01-13 19:05 | NUR ---
REPORT RECEIVED FROM AKIKO ROBLERO. pt RESTING IN THE BED. BOARD UPDATED. pt SATTING AT 94% ON 2LNC. pt DENIES ANY OTHER NEEDS AT THIS TIME. CALL LIGHT WITHIN REACH.
[2025-01-13] MEDS ORDERED: ALBUTEROL/IPRATROPIUM 3 ML NEB INH SCH (20:00)
--- NOTE | 2025-01-13 20:55 | NUR ---
SBA PATIENT TO THE BATHROOM USING WALKER. PATIENT ALREADY WET ON THE WAY TO THE RESTROOM. CHANGED PULL UP, SOCKS AND COMPRESSION SOCKS. WIPED THE FLOOR AND BATHROOM FLOOR WERE WET FROM SHOWER HEAD LEAKS NOT FULLY TURNED OFF. PATIENT IS BACK IN BED. NO FURTHER NEEDS AT THIS TIME.
--- NOTE | 2025-01-13 21:10 | NUR ---
ASSESSMENT AND VITAL SIGNS DONE. BOWEL TONES ACTIVE. pt DENIES NIGHT MEDS. IV ASSESSED, WNL. MIDLINE CDI. pt DENIES ANY OTHER NEEDS AT THIS TIME. CALL LIGHT WITHIN REACH.
--- NOTE | 2025-01-13 22:36 | NUR ---
pt CALLED AND ASK TO GET MORE COMFORTABLE. THIS RN AND ELECTRIC METER INSTALLER HELPER SINTA IN TO REPOSITION pt. pt POSITIONED ON PILLOWS UNDER BOTH HIPS. pt DENIES ANY OTHER NEEDS AT THIS TIME. CALL LIGHT WITHIN REACH.
--- NOTE | 2025-01-13 23:12 | NUR ---
pt CALLED AND C/O NAUSEA. WHEN THIS RN WENT IN TO ADMINISTER PRN ANTINAUSEA MEDS pt C/O 09/02 PAIN AND ANXIETY. THIS RN ADMINISTERED PRN PAIN MEDS AND ANTIANXIETY MEDS. AND PRN ANTINAUSEA MEDS ADMINISTERED. pt DENIES ANY OTHER NEEDS AT THIS TIME. CALL LIGHT WITHIN REACH.
--- NOTE | 2025-01-14 00:16 | NUR ---
pt CALLED TO USE THE BR. pt BACK TO BED AND STILL C/O NAUSEA. THIS RN ADMINISTERED PRN ANTINAUSEA MEDS. pt ON CPOX. pt DENIES ANY OTHER NEEDS AT THIS TIME. CALL LIGHT WITHIN REACH.
--- NOTE | 2025-01-14 01:43 | NUR ---
pt RESTING IN THE BED WITH EYES CLOSED. RR EVEN AND UNLABORED. CALL LIGHT WITHIN REACH.
--- NOTE | 2025-01-14 02:56 | NUR ---
SBA TO BATHROOM AND BACK TO BED USING WALKER. NO FURTHER NEEDS AT THIS TIME.
--- NOTE | 2025-01-14 04:36 | NUR ---
pt RESTING IN THE BED WITH EYES CLOSED. RR EVEN AND UNLABORED. CALL LIGHT WITHIN REACH.
[2025-01-14 05:30] VITALS: BP 144/84
[2025-01-14 05:34] VITALS: BP 144/84
--- NOTE | 2025-01-14 06:03 | NUR ---
VITAL SIGNS DONE. pt ON 2LNC SATTING AT 97%. pt DENIES ANY NEEDS AT THIS TIME. CALL LIGHT WITHIN REACH. ABD BINDER IN PLACE.
--- NOTE | 2025-01-14 07:16 | NUR ---
REPORT RECEIVED FROM PENNIE ROBLERO. PATIENT IN BED, EYES CLOSED, CHEST RISE EVEN AND UNLABORED. CALL LIGHT AND PERSONAL BELONGINGS IN REACH OF PATIENT.
--- NOTE | 2025-01-14 08:02 | NUR ---
PATIENT IN BED, ASSISTED PATIENT TO RESTROOM AND BACK TO SIT AT EDGE OF BED. BREAKFAST AT BEDSIDE. ASSESMENT COMPLETED. SCHEDULED MEDICATIONS ADMINISTERED. PATIENT DENIES CONCERNS. CALL LIGHT AND PERSONAL BELONGINGS IN REACH.
--- NOTE | 2025-01-14 08:09 | NUR ---
RECEIVED NOTIFICATION FROM NISHA AT [facility], THEY HAVE AUTHORIZATION FOR PATIENT TO COME SNF. WOULD LIKE HER TODAY. CHARGE NURSE UPDATED. ATTEMPT TO CONTACT DR. TELLEZ, MESSAGE GOES TO [employer]. LEFT MESSAGE FOR DR. TELLEZ.
--- NOTE | 2025-01-14 08:55 | NUR ---
DR. TELLEZ IN PROCEDURE. CONTACTED CHRISTINA, OR CHARGE, INFORMED HER PATIENT HAS BEEN ACCEPTED TO [facility] FOR TODAY AND NEEDS DC SUMMARY AND ORDERS. STATES SHE WILL SEND HIM AFTER PROCEDURE. PATIENT UPDATED.
--- NOTE | 2025-01-14 09:37 | NUR ---
ORDERS AND PASRR FAXED TO [facility].
[2025-01-14 10:02] VITALS: BP 133/87
--- NOTE | 2025-01-14 10:17 | NUR ---
CALLED AND GAVE REPORT TO OSBALDO GARCIA AT [facility]. ALL QUESTIONS ANSWERED. SHE DENIES FURTHER QUESTIONS OR CONCERNS AT THIS TIME. PATIENT IN BED, CALL LIGHT IN REACH.
--- NOTE | 2025-01-14 10:25 | NUR ---
ASSITED PATIENT TO WHEELCHAIR, 2L OXYGEN VIA NASAL CANNULA ON TRANSPORT OXYGEN TANK. PATIENT WITH HER BELONGINGS. PATIENT CONFIRMS SHE HAS HER PERSONAL PHONE AND MATHEMATICS IMPROVEMENT TEACHER, KEYS, WALLET, SHOES, AND CLOTHES. IV DC'D WNL, CATH INTACT. VITAL SIGNS COMPLETED. PATIENT OFF UNIT WITH PROCESS SAFETY MANAGEMENT ENGINEER VIA WHEELCHAIR. TAXI PROVIDED TO FACILITY.
== END 2025-01-14 10:25 | DRG 354 ==
LOC: ED 21:43 → CCU 01-08 00:43 → MS 01-08 00:43
PROVIDERS: Family Medicine; ADMIT Surgery; ATTEND Surgery
PROC: 0WUF0JZ Supplement Abdominal Wall with Synthetic Substitute, Open Approach (ICD-10-PCS; principal; 2025-01-08 02:00)
DX: K43.0 Incisional hernia with obstruction, without gangrene (principal); J98.11 Atelectasis; L76.34 Postprocedural seroma of skin and subcutaneous tissue following other procedure; I10 Essential (primary) hypertension; F17.200 Nicotine dependence, unspecified, uncomplicated; J44.89 Other specified chronic obstructive pulmonary disease; Z60.2 Problems related to living alone; F41.9 Anxiety disorder, unspecified; Y83.8 Other surgical procedures as the cause of abnormal reaction of the patient, or of later complication, without mention of misadventure at the time of the procedure; Z99.81 Dependence on supplemental oxygen; Z88.0 Allergy status to penicillin; Z88.2 Allergy status to sulfonamides; Z88.8 Allergy status to other drugs, medicaments and biological substances; Z88.6 Allergy status to analgesic agent; Z88.5 Allergy status to narcotic agent; Z79.51 Long term (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 of inhaled steroids; Z79.52 Long term (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 of systemic steroids; Z79.82 Long term (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 of aspirin; Z86.73 Personal history of transient ischemic attack (TIA), and cerebral infarction without residual deficits
CPT/HCPCS: 00830; 36415; 71045; 74177; 76705; 80053; 81001; 83690; 85025; 93005; 93010; 94640; 94762; 94799; 96361; 96374; 96375; 97110; 97116; 97162; 97166; 97530; 97535; 99285-25; A9270; C1781; J0131; J0744; J0780; J1100; J1171; J2003; J2270; J2405; J2704; J2795; J3010; J3490; J7030; J7121; J7605; Q0177; Q9967